=== PATIENT | female | born 1965 | race Caucasian/White ===

== ENCOUNTER 2018-12-26 17:07 | Emergency (ER) | payer MEDICARE, MEDICAID, SELFPAY ==
[2018-12-26] VITALS (16 sets, daily range): BP systolic 124–159; BP diastolic 73–84; PULSE 73–79; RESP 13–31; TEMP 37; O2SAT 84–98
--- NOTE | 2018-12-26 17:25 | DI.CT_ITS ---
SYMPTOM/DIAGNOSIS: BACK PAIN THORACIC AND LUMBAR SPINE RECONSTRUCTIONS: THORACIC: There are mild degenerative changes involving the dorsal spine. The vertebral bodies are intact. The neural canal is widely patent. The posterior elements are intact. There is mild facet joint DJD. LUMBAR: A mild levorotoscoliosis is demonstrated. The vertebral bodies are intact with note made of degenerative endplate changes at L 4-5 where a narrowed vacuum disc is demonstrated. There is a small collection of gas in the neural canal posterior to the L 4-5 level, the findings would be consistent with a probable disc herniation and small collection of nitrogen associated with the degenerative disease. At L 5-S 1, there is disc space narrowing as well. Severe facet joint DJD is noted at these levels. There is no evidence of spondylosis or spondylolisthesis. As visualized, the sacrum and sacroiliac joints are intact. SUMMARY: Degenerative changes involving the lumbar spine as described above. No evidence of a fracture or subluxation.
--- NOTE | 2018-12-26 17:25 | DI.CT_ITS ---
SYMPTOM/DIAGNOSIS: RT UPPER AND LOW BACK PAIN ? DISSECTION CHEST CT AND ABD/PELVIC CTA: CT angiography was performed with multi slice acquisition and multi planar and 3D reconstruction. CHEST: The examination was carried out with an intravenous administration of 85 cc's of Omnipaque 350. Evaluation of the chest reveals a surgical device in the lower cervical spine. There is no evidence of PE. There is no evidence of aortic dissection. An aneurysm of the ascending aorta measures approximately 4.3 cm. in diameter. Note is made of regions of consolidation in the lower lobes which could represent pneumonia or atelectasis. There is no evidence of a pneumothorax or pleural effusion. The heart is not enlarged. Coronary artery calcification is demonstrated. There is no evidence of a pericardial effusion. There is no evidence of lymphadenopathy in the chest. No acute bony abnormality is seen. The soft tissues are unremarkable. SUMMARY: There is no evidence of aortic dissection. There is no evidence of PE. Note is made of an unruptured aneurysm of the ascending aorta measuring up to 4.3 cm. in diameter. Regions of lower lobe atelectasis or pneumonia are apparent. ABDOMEN AND PELVIS: The study was carried out with intravenous contrast enhancement. There is no evidence of an aneurysm. There is no evidence of dissection. There is no evidence of occlusion of the celiac trunk or superior mesenteric artery. The renal arteries are intact. The right iliac artery and left iliac artery artery are intact. The liver is unremarkable. The gallbladder is intact. There are no gallstones or ductal dilatation. The pancreas and spleen are unremarkable. The adrenals are normal. The kidneys are intact. There is no evidence of hydronephrosis. The adrenals are normal. There is no evidence of bowel obstruction. Diverticulosis of the rectosigmoid is apparent with no evidence of diverticulitis. There is nothing to suggest an acute appendix. The bladder is unremarkable. The reproductive organs as visualized are unremarkable. There is no evidence of free air or free fluid in the intraperitoneal space. No acute bony abnormality is seen. There is no evidence of an intra-abdominal or pelvic mass or adenopathy. SUMMARY: No evidence of an abdominal aortic aneurysm or dissection.
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
[2018-12-26] MEDS: fentaNYL 100 MCG/2 ML VIAL IVP (17:41)
[2018-12-26 17:57] LABS: Magnesium 1.8 mg/dL (1.8-2.4)
[2018-12-26] MEDS: Omnipaque 350 MG/ML 100 ML BTL IV (17:57)
[2018-12-26 18:08] LABS: ALT 194 U/L (12-78); AST 98 U/L (15-37); Alkaline Phosphatase 149 U/L (46-116); Anion Gap 11.3 mmol/L (3-11); BUN 10 mg/dL (7-18); Bilirubin, Total 1.1 mg/dL (0.2-1.0); CO2 27.7 mmol/L (21.0-32.0); CREATININE 0.81 mg/dL (0.55-1.02); Chloride 98 mmol/L (98-107); Glucose 87 mg/dL (70-100); Lipase 65 U/L (73-393); Potassium 3.3 mmol/L (3.5-5.1); Sodium 137 mmol/L (136-145)
[2018-12-26 18:09] LABS: Troponin I < 0.02 ng/mL (0.00-0.06)
[2018-12-26 18:15] LABS: Albumin 3.3 g/dL (3.4-5.0)
[2018-12-26 18:17] LABS: Abs Immature Grans 0.03 k/cumm (0.0-0.09); Absolute Basophil Count 0.03 k/cumm (0.0-0.2); Absolute Eosinophil Count 0.15 k/cumm (0.0-0.7); Absolute Lymphocyte Count 2.41 k/cumm (1.2-3.4); Absolute Monocyte Count 1.59 k/cumm (0.11-0.7); Basophils % 0.2; Eosinophils % 1.2; HCT 40.9 % (36.0-46.0); HGB 13.7 g/dL (12.0-15.5); Immature Grans % 0.2; Mean Corp. HGB Concentration 33.5 g/dL (32.0-36.0); Mean Corpuscular Hemoglobin 32.5 pg (27.0-33.0); Mean Corpuscular Volume 97.1 fL (80-95); Mean Platelet Volume 10.2 fL (8.0-11.0); Monocytes % 12.5; Neutrophils % 66.9; Platelet Count 254 x1000/uL (130-400); RBC 4.21 m/cumm (4.00-5.20); RBC Distribution Width 14.3 % (11.7-14.6); White Blood Cell Count 12.68 k/cumm (4.4-10.8)
[2018-12-26] MEDS: diazePAM 10 MG/2 ML SYR 5 MG IVP (18:17)
[2018-12-26 18:24] LABS: PTT Activated 28.3 sec (21.0-31.4); Prothrombin Time 9.5 sec (9.3-11.0)
[2018-12-26 18:27] LABS: Absolute Neutrophil Count 8.48 k/cumm (1.2-6.7)
[2018-12-26 18:33] LABS: Diff Comment Diff Reviewed
[2018-12-26] MEDS: Ketorolac 30 MG/ML VIAL IVP (18:33)
--- NOTE | 2018-12-26 19:13 | DI.VRAD_ITS ---
EXAM: CT Angiography Chest With Contrast EXAM DATE/TIME: 12/26/2018 5:30 PM CLINICAL HISTORY: 53 years old, female; Signs and symptoms; Other: Right upper and lower back pain, ? dissection TECHNIQUE: Imaging protocol: Axial computed tomographic angiography images of the chest with intravenous contrast using CT angiography protocol. Coronal and sagittal reformatted images were created and reviewed. 3D rendering: MIP reconstructed images were created and reviewed. Radiation optimization: All CT scans at this facility use at least one of these dose optimization techniques: automated exposure control; mA and/or kV adjustment per patient size (includes targeted exams where dose is matched to clinical indication); or iterative reconstruction. Contrast material: omnipaque 350 Contrast volume: 85 ml Contrast route: iv COMPARISON: No relevant prior studies available. FINDINGS: Tubes, catheters and devices: Surgical device in the cervical spine Pulmonary arteries: No evidence of pulmonary embolus in the main pulmonary arteries. Aorta: No dissection of the aorta. Unruptured aneurysm of the ascending aorta 4.3 cm. Lungs: Consolidation in the lower lobes may represent atelectasis or pneumonia. Pleural space: Normal. No pneumothorax. No pleural effusion. Heart: Coronary artery calcifications may indicate coronary artery disease Lymph nodes: Unremarkable. No enlarged lymph nodes. Bones/joints: Unremarkable. No acute fracture. Soft tissues: Unremarkable. IMPRESSION: 1. No dissection of the aorta. 2. No evidence of pulmonary embolus in the main pulmonary arteries. 3. Unruptured aneurysm of the ascending aorta 4.3 cm. 4. Consolidation in the lower lobes may represent atelectasis or pneumonia. EXAM: CT Angiography Abdomen and Pelvis With Contrast EXAM DATE/TIME: 12/26/2018 5:30 PM CLINICAL HISTORY: 53 years old, female; Signs and symptoms; Other: Right upper and lower back pain, ? dissection TECHNIQUE: Imaging protocol: Axial computed tomographic angiography images of the abdomen and pelvis with intravenous contrast material, including non-contrast images if performed. Coronal and sagittal reformatted images were created and reviewed. 3D rendering: MIP reconstructed images were created and reviewed. Radiation optimization: All CT scans at this facility use at least one of these dose optimization techniques: automated exposure control; mA and/or kV adjustment per patient size (includes targeted exams where dose is matched to clinical indication); or iterative reconstruction. Contrast material: omnipaque 350 Contrast volume: 85 ml Contrast route: iv COMPARISON: No relevant prior studies available. FINDINGS: VASCULATURE: Aorta: No aneurysm of the aorta. No dissection of the aorta. Celiac trunk and mesenteric arteries: No occlusion or significant stenosis. Renal arteries: No occlusion or significant stenosis. Right iliac arteries: No occlusion or significant stenosis. Left iliac arteries: No occlusion or significant stenosis. ABDOMEN: Liver: No mass. Gallbladder and bile ducts: Unremarkable. No calcified stones. No ductal dilation. Pancreas: Unremarkable. No mass. No ductal dilation. Spleen: Unremarkable. No splenomegaly. Adrenals: Unremarkable. No mass. Kidneys and ureters: Unremarkable. No solid mass. No hydronephrosis. Stomach and bowel: Diverticulosis of the rectosigmoid. No diverticulitis Appendix: No evidence of appendicitis. PELVIS: Bladder: Unremarkable. No mass. Reproductive: Unremarkable as visualized. ABDOMEN and PELVIS: Intraperitoneal space: Unremarkable. No free air. No significant fluid collection. Bones/joints: No acute fracture. No dislocation. Soft tissues: Unremarkable. Lymph nodes: Unremarkable. No enlarged lymph nodes. IMPRESSION: 1. No aneurysm of the aorta. 2. No dissection of the aorta. Dictated and Authenticated by: Ida Gaviria MD. Ordering:NEHAL Rodriguez MD
[2018-12-26] MEDS: levoFLOXacin 500 MG, levoFLOXacin 250 MG 750 MG PO (19:43)
== END 2018-12-26 19:45 | disposition home or self-care (01) ==
PROVIDERS: Emergency Provider Emergency Medicine; PCP Family Medicine
DX: J18.9 Pneumonia, unspecified organism (principal); M54.6 Pain in thoracic spine; M54.5 Low back pain
CPT/HCPCS: 74177; 80053; 80076; 83690; 96374; 96375; 99285; 83735; 84484; 85025; 85610; 85730; 99284; J1885; J3010; J3360; J3490

== ENCOUNTER 2019-06-15 11:23 | Outpatient (CLI) | payer MEDICARE, MEDICAID, SELFPAY ==
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
== END 2019-06-15 11:43 ==
PROVIDERS: PCP Family Medicine; Visit Provider Nurse Practitioner Family
DX: B18.2 Chronic viral hepatitis C (principal); F10.21 Alcohol dependence, in remission; Z72.0 Tobacco use; Z98.61 Coronary angioplasty status; J44.9 Chronic obstructive pulmonary disease, unspecified

== ENCOUNTER 2019-08-08 09:19 | Emergency (ER) | payer MEDICARE, MEDICAID, SELFPAY ==
[2019-08-08] VITALS (29 sets, daily range): BP systolic 117–145; BP diastolic 58–94; PULSE 59–71; RESP 6–21; O2SAT 91–100
--- NOTE | 2019-08-08 10:17 | W.ED.GENAD ---
Discharge Plan Disposition Patient Disposition: AGAINST MEDICAL ADVICE Condition: Good Discharge Details Chief Complaint: Chest/Rib Clinical Impression: Chest pain, Pneumonia Primary Care Provider: Homer Merida ED Provider: Shelley Mondragon Home Meds and New Rx's Prescriptions: New doxycycline hyclate 100 mg capsule 100 mg PO BID Qty: 20 RF: 0 No Action fluoxetine [Prozac] 40 MG capsule 20 mg PO TID RF: 0 metoprolol succinate 100 MG tablet extended release 24 hr 12.5 mg PO DAILY RF: 0 Lyrica 100 MG capsule 150 mg PO BID RF: 0 atorvastatin 40 mg Tablet 40 mg PO DAILY RF: 0 losartan 25 mg Tablet 25 mg PO DAILY RF: 0 montelukast 10 mg Tablet 10 mg PO DAILY RF: 0 loratadine 10 mg Tablet 10 mg PO DAILY RF: 0 diazepam [Valium] 5 mg Tablet 5 mg PO PRNRF: 0 oxycodone 10 mg Tablet 10 mg PO TID RF: 0 levofloxacin 750 mg tablet 750 mg PO DAILY Qty: 6 RF: 0 Discharge Instructions Instructions: Chest Pain (ED), Pneumonia (ED) Additional Instructions: Push fluids by mouth. Rest activities as tolerated. Your lab work is thus far normal. Next line use antibiotic for possible pneumonia. Follow-up promptly with your primary care doctor. Return for any alarming symptoms, worsening or concerns sooner if needed Discharge Data Discharge Date/Time-TO BE ENTERED AT DEPARTURE: 08/08/19 13:56 Medical Decision Making Is a 54-year-old woman who does have a history of opiate use due to chronic pain. Patient presents for right-sided chest pain for the last 2 days. Patient reports right back pain radiating to the lateral chest with some occasional substernal intermittent chest pain. Patient reports pain significant worse with range of motion as well as with deep breathing. Patient reports pain is not relieved at rest but does escalate with movement. Patient denies any diaphoresis, or associated abdominal complaints. Patient noted to be mildly hypoxic on the monitor. Patient reports she is a smoker, does report a cough but no significant change in cough. Denies any fevers or chills recently. Given patient's complaints of right-sided chest pain with mild hypoxia will order CT chest after discussion with the patient regarding conservative chest x-ray and imaging her preferences CT at this time. Of note patient did begin hepatitis medications by mouth prior to onset of her symptoms last week. Is unclear if this is related to her symptoms. Labs pending, troponins pending. EKG reveals sinus rhythm with poor R wave progression which is nonspecific. A heart rate of 72. No obvious ST segment changes. This was reviewed with Dr. Mian Maier. Patient's labs returned without significant abnormalities. At this time patient is requesting that she be discharged home. CAT scan still pending. Patient reports she wants to be discharged and call for her test results. I advised the patient that it is important for her to save her test results. I had a discussion with the patient about my diagnostic/treatment plan. Patient declines plan and wishes to leave against medical advise. I reiterated my concerns to the patient and explained the risks of leaving prior to completion of workup and treatment. I specifically emphasized the possibility of life-threatening or lifestyle modifying disease that would no be appropriately treated if they leave. Patient verbalized understanding of my concerns and the potential for life threatening or lifestyle modifying disease. Patient has capacity to make informed decision. I again explained my concerns and urged the patient to stay for treatment as outlined. Patient continued to refuse. I then discussed potential less ideal alternatives to diagnostic/treatment plan as outlined and patiint refused. I recommended that the patient followup with primary care physician [facility]INT or return to the Emergency Department at any timer for further treatment. HPI General Date/Time Provider Initiated Documentation: 08/08/19 09:35. HPI Narrative: Is a 54-year-old woman who presents to the emergency room for right-sided chest pain patient reports onset of right-sided chest pain 2 days ago. Patient reports pain is fairly constant. Patient reports pain is worse with deep breathing, coughing, moving, walking. Patient denies fever, chills, upper respiratory symptoms recently. She does have a baseline cough. She patient reports patient reports right back pain with radiation around her flank. Patient denies abdominal pain. Patient denies vomiting but does report mild nausea this morning. Pain is escalating compared to the last 2 days. Patient does report left-sided chest pain that occurred last week. Was seen at [facility] and diagnosed with muscle strain, given steroids. Patient reports left-sided chest pain resolved in 4 days. Patient denies any leg swelling. Patient is a smoker. Patient does report mild dyspnea although when characterizing reports that as shallow breathing due to pain. Patient does report mild substernal discomfort which is intermittent as opposed to the constant type pain she is experiencing in the right chest. Denies dizziness, lightheadedness or weakness. Difficulty sleeping last night due to pain. Does take chronic pain medicine for which she has been compliant with which is not relieving of her pain. Denies urinary urgency, frequency or dysuria. No hematuria. Related Data Home Medications Medication Instructions Recorded Confirmed fluoxetine [Prozac] 20 mg PO TID 12/08/15 12/26/18 metoprolol succinate 12.5 mg PO DAILY tab-cap 12/08/15 12/26/18 Lyrica 150 mg PO BID 12/26/15 12/26/18 atorvastatin 40 mg PO DAILY 12/26/18 12/26/18 diazepam [Valium] 5 mg PO PRN 12/26/18 levofloxacin 750 mg PO DAILY #6 tab 12/26/18 loratadine 10 mg PO DAILY 12/26/18 12/26/18 losartan 25 mg PO DAILY 12/26/18 12/26/18 montelukast 10 mg PO DAILY 12/26/18 12/26/18 oxycodone 10 mg PO TID 12/26/18 12/26/18 doxycycline hyclate 100 mg PO BID #20 cap 08/08/19 Previous Rx's Medication Instructions Recorded levofloxacin 750 mg PO DAILY #6 tab 12/26/18 doxycycline hyclate 100 mg PO BID #20 cap 08/08/19 Allergies Allergy/AdvReac Type Severity Reaction Status Date / Time Sulfa (Sulfonamide Allergy Intermediate Unverified 12/26/18 17:19 Antibiotics) codeine Allergy Unknown Unverified 12/26/18 17:19 sumatriptan [From Imitrex] Allergy Unknown Unverified 12/26/18 17:19 General Stated Complaint: Chest/Rib GAYATRI: 3 Review of Systems All systems reviewed & are unremarkable except as noted in HPI and below Constitutional Constitutional: Denies chills, Denies fatigue, Denies fever(s), Denies headache(s) and Denies malaise ENT Ears, Nose, Mouth, and Throat: Denies headache(s) and Denies neck pain Cardiovascular Cardiovascular: Reports chest pain, Denies diaphoresis, Denies syncope, Denies pedal edema, Denies palpitations, Reports dyspnea and Denies dyspnea on exertion Respiratory Respiratory: Reports cough, Reports pain on inspiration, Reports pain with cough, Reports dyspnea, Denies dyspnea on exertion and Denies wheezing Gastrointestinal Gastrointestinal: Denies abdominal pain, Denies diarrhea, Reports nausea and Denies vomiting Genitourinary Genitourinary: Denies urinary frequency, Denies dysuria and Denies urinary urgency Musculoskeletal Musculoskeletal: Reports back pain and Denies neck pain Neurologic Neurologic: Denies syncope and Denies headache(s) Endocrine Endocrine: Denies fatigue and Denies palpitations Allergic/Immunologic Allergic/Immunologic: Denies wheezing [facility] Social History Smoking/Tobacco Use Status: Current every day Tobacco Type: cigarettes Drug use: Occasionally Do you feel safe in your relationship?: Yes Exam Narrative Exam Narrative: CONST: Healthy appearing patient, in no acute distress. Well hydrated. Alert and alert. NECK: Normal visual inspection. FROM. No lymphadenopathy. Trachea midline. No Midline tenderness. CHEST: Normal insepection of the chest. chest wall pain is not reproducible RESP: Normal respiratory effort. Speaking full sentences. No cough. No wheezing. No retractions. Mild rhonchi in the bases of bilateral lower lungs. Breath sound equal and present bilaterally. CARDIO: No JVD. Normal PMI. Regular Rate. Regular Rhythm. Normal peripheral pulses. GI: Normal inspection of abdomen. No distension. Soft. Mild right upper quadrant pain with palpation. Bowel sounds present in all 4 quadrants. No rebound. No gaurding. MUSCULOSKELETAL: Normal Gait. FROM of all extremities. Distal neurovascularly intact. Sensation intact distally. Back: No CVA tenderness bilaterally. SKIN: Normal. Dry. No rashes. NEURO: Alert and awake. Speech clear. PSYCH: Normal affect. Cooperative. Course Vital Signs Vital signs: Vital Signs Blood Pressure 145/94 H 08/08/19 09:23 Respiratory Effort 08/08/19 09:35 Respiratory Depth Shallow 08/08/19 09:35 Respiratory Pattern Normal 08/08/19 09:35 Blood Pressure 145/94 H 08/08/19 09:23 Pain Level 8 08/08/19 09:35
[2019-08-08] MEDS: Normal Saline 1,000 ML 1000 ML IV (10:43)
[2019-08-08] MEDS: HYDROmorphone 2 MG/ML VIAL 1 MG IVP ×2 (10:43→12:05)
[2019-08-08 11:18] LABS: Abs Immature Grans 0.02 k/cumm (0.0-0.09); Absolute Basophil Count 0.04 k/cumm (0.0-0.2); Absolute Eosinophil Count 0.14 k/cumm (0.0-0.7); Absolute Lymphocyte Count 1.82 k/cumm (1.2-3.4); Absolute Monocyte Count 1.02 k/cumm (0.11-0.7); Absolute Neutrophil Count 6.83 k/cumm (1.2-6.7); Basophils % 0.4; Eosinophils % 1.4; HCT 42.9 % (36.0-46.0); HGB 14.2 g/dL (12.0-15.5); Immature Grans % 0.2; Lymphocytes % 18.4; Mean Corp. HGB Concentration 33.1 g/dL (32.0-36.0); Mean Corpuscular Hemoglobin 32.3 pg (27.0-33.0); Mean Corpuscular Volume 97.7 fL (80-95); Mean Platelet Volume 10.8 fL (8.0-11.0); Monocytes % 10.3; Neutrophils % 69.3; Platelet Count 248 x1000/uL (130-400); RBC 4.39 m/cumm (4.00-5.20); RBC Distribution Width 13.2 % (11.7-14.6); White Blood Cell Count 9.87 k/cumm (4.4-10.8)
[2019-08-08 11:19] LABS: Bilirubin Negative (Negative); Blood Negative (Negative); Clarity Clear (Clear); Glucose Negative (Negative); Ketones Negative (Negative); Leukocyte Esterase Negative (Negative); Nitrite Negative (Negative); Urobilinogen 0.2 EU/dL (Up TO 0.2)
[2019-08-08 11:47] LABS: ALT 38 U/L (14-59); AST 24 U/L (15-37); Albumin 3.5 g/dL (3.4-5.0); Alkaline Phosphatase 81 U/L (46-116); Anion Gap 7.8 mmol/L (3-11); BUN 14 mg/dL (7-18); Bilirubin, Total 0.7 mg/dL (0.2-1.0); CO2 26.2 mmol/L (21.0-32.0); CREATININE 0.85 mg/dL (0.55-1.02); Calcium 8.9 mg/dL (8.5-10.1); Chloride 102 mmol/L (98-107); Glucose 106 mg/dL (70-100); Lipase 83 U/L (73-393); NT-proBNP 128 pg/mL; Sodium 136 mmol/L (136-145); Total Protein 7.9 g/dL (6.4-8.2)
[2019-08-08 11:50] LABS: Troponin I < 0.05 ng/mL (0.00-0.06)
--- NOTE | 2019-08-08 13:00 | DI.CT_ITS ---
EXAM: CT CHEST PE CTA CLINICAL HISTORY: pain, right chest, please include liver TECHNIQUE: Imaging Protocol: Axial CT angiography was performed with multi-slice acquisition and mu lti-planar and/or 3D reconstructions. CONTRAST MATERIAL: Intravenous: Omnipaque 350 Contrast volume:69 mL contrast route:IV - Oral:No COMPARISON: CT thorax abd/pel CTA from 12/26/2018 FINDINGS: Pulmonary Arteries: No evidence of filling defect to suggest pulmonary emboli. Tracheobronchial tree: Patent where visualized. Mediastinum and Kayli: No dominant adenopathy or fluid collection. Pulmonary parenchyma: There are small areas of consolidation in the lower lobes bilaterally. These a reas have significantly improved since the CT scan from 12/26/2018. Dependent atelectatic changes ar e also noted. No architectural distortion. Pleura: No effusion or pneumothorax. Heart/Aorta: There is no evidence of a thoracic aortic dissection or aneurysm. There is no cardiomeg hawk. No pericardial effusion or right heart strain is noted. Coronary artery calcifications are pre sent. Upper abdomen: Unremarkable. Bones: Degenerative changes. IMPRESSION: No evidence of pulmonary embolus, thoracic aortic dissection or aneurysm. Small areas of consolidation in the lower lobes bilaterally. These may represent areas of atelectasis or pneumonia. Please correlate clinically. The findings were discussed with the Emergency Department on the date of the examination. DATA REPOSITORY: All CT scans at this facility are submitted to the National Radiology Data Registry (NRDR) Dose Index Registry (DIR) with the [employer] (ACR). RADIATION OPTIMIZATION: All CT scans at this facility use at least one of these dose optimization te chniques: automated exposure control; mA and/or kV adjustment per patient size (includes targeted exa ms where dose is matched to clinical indication); or iterative reconstruction.
[2019-08-08] MEDS: Omnipaque 350 MG/ML 100 ML BTL IJ (13:15)
== END 2019-08-08 13:56 | disposition left against medical advice (07) ==
PROVIDERS: Emergency Provider Physician Assistant; PCP Family Medicine
DX: J20.9 Acute bronchitis, unspecified (principal)
CPT/HCPCS: 36415; 71275; 80053; 83690; 93005; 96361; 96374; 96376; 99284; 81003; 83880; 84484; 85025; 93010; J3490

== ENCOUNTER 2021-06-09 09:48 | Emergency (ER) | payer MEDICARE, MEDICAID, SELFPAY ==
[2021-06-09] VITALS (20 sets, daily range): BP systolic 111–135; BP diastolic 68–86; PULSE 55–71; RESP 10–20; TEMP 36.5–36.6; O2SAT 89–98
--- NOTE | 2021-06-09 10:15 | RT.EKG_ITS ---
APPROVED REPORT Exam: Resting ECG Reason for Exam: Chest pain Patient Location: E HR:61 bpm ECG Measurements Heart Rate 61 AXIS AK 163 P 38 QRSd 96 QRS 3 QT 450 T 30 QTc 452 Conclusion Sinus rhythm...normal P axis, V-rate 60- 99. Sinus. No STEMI. I have reviewed and interpreted ECG and agree with software generated interpretation.
--- NOTE | 2021-06-09 10:29 | W.ED.GENAD ---
Discharge Plan Disposition Patient Disposition: HOME Condition: Stable Discharge Details Clinical Impression: Abdominal pain Primary Care Provider: Homer Merida ED Provider: Virginia Bowen Home Meds and New Rx's Prescriptions: Continued fluoxetine [Prozac] 40 MG capsule 20 mg PO TID RF: 0 metoprolol succinate 100 MG tablet extended release 24 hr 12.5 mg PO DAILY RF: 0 atorvastatin 40 mg Tablet 40 mg PO DAILY RF: 0 losartan 25 mg Tablet 25 mg PO DAILY RF: 0 diazepam [Valium] 5 mg Tablet 5 mg PO PRNRF: 0 oxycodone 10 mg Tablet 10 mg PO TID RF: 0 aspirin 81 mg tablet,chewable 81 mg PO DAILY RF: 0 pregabalin 300 mg capsule 300 mg PO DAILY RF: 0 Discharge Instructions Instructions: Abdominal Pain (ED) Additional Instructions: Follow up with primary care provider in 3-5 days. Return to ED sooner if any worsening or concerns. Increase oral fluids. At this time labs are all within normal limits, CT chest abdomen pelvis showed no acute abnormality. Please discuss with your surgeon at follow-up different options and further testing if needed. Referrals: Homer Merida [Primary Care Provider] - Medical Decision Making 56-year-old female presents to the ER with chief complaint of right upper quadrant abdominal pain which radiates into her back which began yesterday while outside picking potatoes. Patient reports diaphoresis and nausea no vomiting. Patient is status post cholecystectomy on May 25 of this year. Denies any diarrhea fever. Patient has a past medical history of high cholesterol, back pain surgical history includes appendectomy, back surgery, hysterectomy, cholecystectomy. Current every day smoker. Former alcohol use. Patient is complaining of 8 out of 10 pain which waxes and wanes. Right upper quadrant right lower quadrant tenderness with palpation. Patient also endorses bloating associated with this pain. At this time work-up ordered including lipase, will order chest CT abdomen pelvis rule out PE versus common bile duct stone versus other etiology for patient's symptoms. CBC is negative for leukocytosis, alk phos slightly elevated at 127, initial troponin within normal limits, lipase 68, urinalysis is negative for any signs of infection. CT result noted below. CT CT thorax abd/pel CTA from 12/26/[address] CHEST PE CTA from 08/08/2019 FINDINGS: PE chest CT: Tracheobronchial tree: No bronchiectasis or mucous plugging. Mediastinum and Kayli: No dominant adenopathy or fluid collection. Pulmonary parenchyma: No consolidation or dominant measurable mass. Linear scarring versus atelectasis both lung bases. Expiratory changes. Mild respiratory motion. Pleura: No effusion or pneumothorax. Heart: The heart is mildly dilated. Moderate coronary artery calcifications are seen. Aorta: Thoracic aorta non-dilated. Mild atherosclerotic changes. Lymph nodes: Within normal limits. Bones: Unremarkable for age. Soft tissues: Unremarkable. CT abdomen pelvis: Status post cholecystectomy. No abnormal collection in the gallbladder fossa. No free air. Liver, spleen, pancreas, adrenals and kidneys unremarkable. Diverticulosis sigmoid colon. No diverticulitis. Stomach and small bowel nondilated. Atherosclerotic changes in the aorta. Degenerative changes in the lumbar spine as well as degenerative scoliosis. Status post hysterectomy. Bladder unremarkable. No abnormal soft tissue collection. IMPRESSION: No evidence of pulmonary emboli. Mild basilar scarring versus atelectasis with improvement when compared with the previous exam. Status post cholecystectomy. No acute abnormality in the abdomen or pelvis. Discussed results with patient who verbalized understanding. Patient instructed to follow-up with surgeon and PCP. To discuss strict return instructions. Patient remained hemodynamically stable throughout the remainder of her stay. HPI General Mode of arrival: ambulatory. Date/Time Provider Initiated Documentation: 06/09/21 10:21. Limitations to Documentation: no limitations. Information obtained by: patient and RN notes reviewed. HPI Narrative: 56-year-old female presents to the ER with chief complaint of right upper quadrant abdominal pain which radiates into her back which began yesterday while outside picking potatoes. Patient reports diaphoresis and nausea no vomiting. Patient is status post cholecystectomy on May 25 of this year. Denies any diarrhea fever. Patient has a past medical history of high cholesterol, back pain surgical history includes appendectomy, back surgery, hysterectomy, cholecystectomy. Current every day smoker. Former alcohol use. Patient is complaining of 8 out of 10 pain which waxes and wanes. Right upper quadrant right lower quadrant tenderness with palpation. Patient also endorses bloating associated with this pain. Related Data Home Medications Medication Instructions Recorded Confirmed fluoxetine [Prozac] 20 mg PO TID 12/08/15 06/09/21 metoprolol succinate 12.5 mg PO DAILY tab-cap 12/08/15 06/09/21 atorvastatin 40 mg PO DAILY 12/26/18 06/09/21 diazepam [Valium] 5 mg PO PRN 12/26/18 losartan 25 mg PO DAILY 12/26/18 06/09/21 oxycodone 10 mg PO TID 12/26/18 06/09/21 aspirin 81 mg PO DAILY 06/09/21 06/09/21 pregabalin 300 mg PO DAILY 06/09/21 06/09/21 Allergies Allergy/AdvReac Type Severity Reaction Status Date / Time Sulfa (Sulfonamide Allergy Intermediate Unverified 06/09/21 10:22 Antibiotics) codeine Allergy Unknown Unverified 06/09/21 10:22 sumatriptan [From Imitrex] Allergy Unknown Unverified 06/09/21 10:22 General Stated Complaint: Abd Prob GAYATRI: 3 Review of Systems Narrative: Constitutional: Negative for weight loss, alert and oriented, well groomed, normal body habitus, appears uncomfortable. HEENT: Denies trauma, headaches, blurry vision, nasal discharge, sore throat, trouble swallowing. Chest: Denies palpitations, irregular rhythm, hypertension. Respiratory: Denies Shortness of breath, cough, hemoptysis. GI: Denies vomiting, diarrhea, constipation. Positive abdominal pain right upper quadrant radiates in the back status post cholecystectomy, nausea. : Denies dysuria, hematuria, rectal bleeding. Right flank pain. Neuro: Denies dizziness, blurry vision, weakness, syncope, headache or facial numbness. Hematologic: Denies easy bruising, intolerance to heat or cold, hair loss. [facility] Surgical History Appendectomy back surgery Colonoscopy - MAC (07/27/17) neck surgery Vaginal hysterectomy Family History Father Colon polyps Social History Smoking/Tobacco Use Status: Current every day Tobacco Type: cigarettes Smoking risk assessment performed?: Yes Alcohol Intake: former Drug use: Occasionally Substance use type: does not use Do you feel safe in your relationship?: Yes Exam Narrative Exam Narrative: Constitutional: Alert and oriented x3. Appears stated age. Normal body habitus. Head: Normocephalic, no trauma. Eyes: Pupils PERRLA, Red reflex noted, EOM's intact. Eyelids symmetrical without lesions, discharge, or swelling. ENT: Bilateral TM's WNL, External ear normal to inspection, no mastoid TTP, swelling, or erythema, Nasal turbinates WNL, no nasal discharge. Normal dentition, Posterior pharynx WNL, no exudate. Chest: RRR, Normal S1, S2, distal pulses intact. Resp: Lungs clear to auscultation bilaterally, no wheezes, rales, or rhonchi. Abdomen: Soft, nondistended tender with palpation right upper quadrant right lower quadrant laparoscopic surgical incisions noted with no surrounding erythema, induration or signs of infection. Musculoskeletal: Unable to assess gait. 5/5 strength to all four extremities. Skin: No suspicious rashes or lesions. Capillary refill less than 2 sec. Neurologic: Cranial nerves II-XII intact. Alert and oriented x 3. DTR's intact. Hematologic/Lymphatic: No ecchymosis, no lymphadenopathy. Course Vital Signs Vital signs: Vital Signs Temperature 36.6 C 06/09/21 09:58 Pulse 67 06/09/21 09:58 Respiratory Rate 20 06/09/21 09:58 Blood Pressure 135/86 06/09/21 09:58 Pulse Oximetry 98 06/09/21 09:58 Temperature 36.6 C 06/09/21 09:58 Temperature Source Skin 06/09/21 09:58 Pulse 67 06/09/21 09:58 Respiratory Rate 20 06/09/21 09:58 Respiratory Effort 06/09/21 10:04 Blood Pressure 135/86 06/09/21 09:58 Blood Pressure Position Sitting 06/09/21 09:58 Pulse Oximetry 98 06/09/21 09:58 Oxygen Delivery Method Room Air 06/09/21 09:58 Oxygen Flow Rate 0 06/09/21 09:58 Pain Level 8 06/09/21 10:22
--- NOTE | 2021-06-09 10:30 | DI.CT_ITS ---
Exam(s) CT CHEST PE ABD PELVIS W EXAM: CT CHEST PE ABD PELVIS W CLINICAL HISTORY: S/P cholecystectomy RUQ abd Pain/Chest pain TECHNIQUE: Imaging Protocol: Axial computed tomography images with coronal and sagittal reformatted images were created and reviewed CONTRAST MATERIAL: Intravenous: Omnipaque 350 Contrast volume:100 cc COMPARISON: CT CT thorax abd/pel CTA from 12/26/[address] thorax abd/pel CTA from 12/26/[address] CHEST PE CTA from 08/08/2019 FINDINGS: PE chest CT: Tracheobronchial tree: No bronchiectasis or mucous plugging. Mediastinum and Kayli: No dominant adenopathy or fluid collection. Pulmonary parenchyma: No consolidation or dominant measurable mass. Linear scarring versus atelectasi s both lung bases. Expiratory changes. Mild respiratory motion. Pleura: No effusion or pneumothorax. Heart: The heart is mildly dilated. Moderate coronary artery calcifications are seen. Aorta: Thoracic aorta non-dilated. Mild atherosclerotic changes. Lymph nodes: Within normal limits. Bones: Unremarkable for age. Soft tissues: Unremarkable. CT abdomen pelvis: Status post cholecystectomy. No abnormal collection in the gallbladder fossa. No free air. Liver, spl een, pancreas, adrenals and kidneys unremarkable. Diverticulosis sigmoid colon. No diverticulitis. St omach and small bowel nondilated. Atherosclerotic changes in the aorta. Degenerative changes in the l umbar spine as well as degenerative scoliosis. Status post hysterectomy. Bladder unremarkable. No abn ormal soft tissue collection. IMPRESSION: No evidence of pulmonary emboli. Mild basilar scarring versus atelectasis with improvement when comp ared with the previous exam. Status post cholecystectomy. No acute abnormality in the abdomen or pelvis. RADIATION DOSE DELIVERED: 1,662.1mGy.cm Total DLP DATA REPOSITORY: All CT scans at this facility are submitted to the National Radiology Data Registry (NRDR) Dose Index Registry (DIR) with the [employer] ([employer]). RADIATION OPTIMIZATION: All CT scans at this facility use at least one of these dose optimization te chniques: automated exposure control; mA and/or kV adjustment per patient size (includes targeted exa ms where dose is matched to clinical indication); or iterative reconstruction.
[2021-06-09 10:35] LABS: Bilirubin Negative (Negative); Blood Negative (Negative); Clarity Clear (Clear); Glucose Negative (Negative); Ketones Negative (Negative); Leukocyte Esterase Negative (Negative); Nitrite Negative (Negative); Urobilinogen 0.2 EU/dL (Up TO 0.2); pH 5.5 (5-8)
[2021-06-09 10:36] LABS: Abs Immature Grans 0.03 10^3/uL (0.0-0.06); Absolute Basophil Count 0.06 10^3/uL (0.0-0.2); Absolute Eosinophil Count 0.28 10^3/uL (0.0-0.7); Absolute Lymphocyte Count 2.72 10^3/uL (1.2-3.4); Absolute Monocyte Count 0.95 10^3/uL (0.1-0.8); Absolute Neutrophil Count 6.52 10^3/uL (1.2-6.7); Basophils % 0.6; Eosinophils % 2.7; HCT 44.6 % (36.0-46.0); HGB 14.5 g/dL (11.2-15.7); Immature Grans % 0.3; Lymphocytes % 25.8; MCH 31.8 pg (27.0-33.0); MCHC 32.5 % (32.0-36.0); MCV 97.8 fL (80-95); MPV 10.1 fL (8.0-11.0); Neutrophils % 61.6; Nucleated RBC 0 %; Platelet Count 261 10^3/uL (130-400); RBC 4.56 10^6/uL (3.93-5.22); RDW 12.3 % (11.7-14.6); RDW-SD 44.8 fL; WBC 10.56 10^3/uL (4.4-10.8)
[2021-06-09 10:49] LABS: ALT 53 U/L (14-59); AST 32 U/L (15-37); Albumin 3.9 g/dL (3.4-5.0); Alkaline Phosphatase 127 U/L (46-116); BUN 13 mg/dL (7-18); Bilirubin, Total 0.6 mg/dL (0.2-1.0); CREATININE 1.1 mg/dL (0.55-1.02); Calcium 9.2 mg/dL (8.5-10.1); Chloride 102 mmol/L (98-107); Estimated GFR 51.02 (mL/min/1.73m2); Glucose 102 mg/dL (74-106); Lipase 68 U/L (73-393); Potassium 4.3 mmol/L (3.5-5.1); Sodium 138 mmol/L (136-145); Total Protein 8.1 g/dL (6.4-8.2)
[2021-06-09] MEDS: Normal Saline 1,000 ML 250 ML IV (10:53)
[2021-06-09] MEDS: Ondansetron 4 MG/2 ML VIAL IVP (10:53)
[2021-06-09 10:54] LABS: Troponin I < 0.05 ng/mL (<0.06)
[2021-06-09] MEDS: fentaNYL 100 MCG/2 ML VIAL 50 MCG IVP ×2 (10:54→11:40)
[2021-06-09] MEDS: Omnipaque 350 MG/ML 100 ML BTL IJ (11:20)
== END 2021-06-09 12:55 | disposition home or self-care (01) ==
PROVIDERS: Emergency Provider Registered Nurse Emergency; PCP Family Medicine
DX: R10.11 Right upper quadrant pain (principal); M54.9 Dorsalgia, unspecified; R07.9 Chest pain, unspecified
CPT/HCPCS: 71275; 74177; 80053; 83690; 93005; 96374; 96375; 96376; 99284; 81003; 83735; 84484; 85025; 93010; J2405; J3010; J3490

== ENCOUNTER → 2022-09-30 13:39 | Outpatient (BNVA) | payer MEDICARE, MEDICAID, SELFPAY | PROVIDERS: PCP Family Medicine; Referring Provider Family Medicine; Visit Provider Psychiatry & Neurology Neurology | DX: I10 Essential (primary) hypertension (principal); R56.9 Unspecified convulsions; I67.83 Posterior reversible encephalopathy syndrome | CPT/HCPCS: 99215 ==

== ENCOUNTER 2022-10-19 03:33 | Outpatient (CLI) | payer MEDICARE, MEDICAID, SELFPAY ==
--- NOTE | 2022-10-25 10:46 | PDOC.EEG_ITS ---
Neurology EEG EEG: [facility] Department of Neurology LONG-TERM AMBULATORY EEG REPORT Date of Recordin10/19/22 at 11:31:33 to 10/20/22 at 08:24:52 Interpreting Physician: Dr. Isabel Huber PCP/Referring Provider: Dr. Merida Reason for study: Ms. Williamson is a 57 year-old with recent GTCs secondary to PRES with ongoing headaches, fatigue, and brain fog. Current Medications: Home Medications Medication Instructions Recorded Confirmed Type fluoxetine 40 mg capsule (Prozac) 20 mg PO TID 12/08/15 09/30/22 History aspirin 81 mg chewable tablet 81 mg PO DAILY 06/09/21 09/30/22 History pregabalin 300 mg capsule 300 mg PO DAILY 06/09/21 09/30/22 History albuterol 90 mcg/actuation aerosol 90 mcg inhalation Q3H PRN PRN 09/28/22 09/30/22 History inhaler budesonide-formoterol HFA 80 2 puff inhalation BID 09/28/22 09/30/22 History mcg-4.5 mcg/actuation aerosol inhaler (Symbicort) levetiracetam 250 mg tablet 500 mg PO BID 09/28/22 09/30/22 History (Keppra) losartan 25 mg tablet 50 mg PO DAILY 09/28/22 09/30/22 History metoprolol succinate 25 mg 25 mg PO DAILY 09/28/22 09/30/22 History tablet,extended release 24 hr naproxen 500 mg tablet 500 mg PO BID PRN 09/28/22 09/30/22 History omeprazole 20 mg capsule,delayed 20 mg PO DAILY 09/28/22 09/30/22 History release oxycodone 15 mg tablet 15 mg PO Q6H PRN 09/28/22 09/30/22 History rosuvastatin 10 mg tablet 10 mg PO DAILY 09/28/22 09/30/22 History sennosides 8.6 mg tablet (senna) 17.2 mg PO DAILY PRN 09/28/22 09/30/22 History trazodone 300 mg tablet 300 mg PO QHS 09/28/22 09/30/22 History umeclidinium 62.5 mcg/actuation 1 inh inhalation Q24H 09/28/22 09/30/22 History blister powder for inhalation (Incruse Ellipta) topiramate 50 mg tablet See Rx Instructions PO .COMPLEX 09/30/22 09/30/22 Rx #120 tabs METHODS: An 18-channel digitized electroencephalogram was recorded in the ambulatory setting with video. The 10/20 international system of electrode placement was used and bipolar and referential electrode montages were recorded. In addition to EEG the patient was monitored for EKG and by video. Activation procedures of photic stimulation and hyperventilation were performed if applicable. The duration of the recording was ~21 hours. DESCRIPTION OF EEG: Waking background activity: During maximal wakefulness a 10-Hz posterior background rhythm was present which was well-modulated, symmetrical, reactive to eye opening, and of moderate voltage. Faster frequencies were present in the bilateral anterior head regions. There was a normal anterior-posterior voltage gradient. Drowsy and sleeping background activity: During drowsiness, there was attenuation of the posterior dominant background rhythm and vertex waves. Normal stage II and III sleep was present with symmetrical sleep spindles, K- complexes, and vertex waves with slowing of the background rhythm to delta/theta frequencies. REM sleep manifested by rapid lateral eye movements and faster background rhythms was recorded. Arousal was unremarkable. Sleep was disrupted by frequent nocturnal arousals. Interictal abnormalities: There were times of generalized, polymorphic theta activity during wakefulness which may represent periods of drowsiness as they were often followed by sleep. Ictal findings: No events recorded. Activating Procedures: Photic stimulation was performed which produced a symmetrical posterior driving response at various flash frequencies. Hyperventilation was performed with moderate effort and produced no physiological slowing of the background. EKG: EKG revealed normal sinus rhythm. INTERPRETATION: This long-term EEG is normal during the awake and sleep states as well as during the activation procedures. Sleep was disrupted by frequent nocturnal arousals. PRIOR EEG: none CLINICAL CORRELATION: No focal regions of cerebral dysfunction or epileptiform activity was present. The sleep disturbances could be indicative of an underlying sleep disorder. Epilepsy remains a clinical diagnosis and a normal EEG does not rule out epilepsy. Clinical correlation is advised. Isabel Huber MD
== END 2022-10-19 03:34 | disposition home or self-care (01) ==
LOC: RT 03:33
PROVIDERS: PCP Family Medicine; Visit Provider Psychiatry & Neurology Neurology
DX: I67.83 Posterior reversible encephalopathy syndrome (principal)
CPT/HCPCS: 95714; 95720

== ENCOUNTER → 2022-12-01 07:21 | Outpatient (BNVA) | payer MEDICARE, MEDICAID, SELFPAY | PROVIDERS: PCP Family Medicine; Referring Provider Family Medicine; Visit Provider Psychiatry & Neurology Neurology | DX: I67.83 Posterior reversible encephalopathy syndrome (principal); R56.9 Unspecified convulsions; Z86.73 Personal history of transient ischemic attack (TIA), and cerebral infarction without residual deficits; I10 Essential (primary) hypertension | CPT/HCPCS: 99214 ==

== ENCOUNTER → 2022-12-29 10:47 | Outpatient (BNVA) | payer MEDICARE, MEDICAID, SELFPAY | PROVIDERS: PCP Family Medicine; Referring Provider Family Medicine; Visit Provider Psychiatry & Neurology Neurology | DX: I69.398 Other sequelae of cerebral infarction (principal); G40.309 Generalized idiopathic epilepsy and epileptic syndromes, not intractable, without status epilepticus; I10 Essential (primary) hypertension; I67.83 Posterior reversible encephalopathy syndrome | CPT/HCPCS: 99213 ==

== ENCOUNTER → 2023-03-17 07:17 | Outpatient (BNVA) | payer MEDICARE, MEDICAID, SELFPAY | PROVIDERS: PCP Family Medicine; Referring Provider Family Medicine; Visit Provider Psychiatry & Neurology Neurology | DX: I69.398 Other sequelae of cerebral infarction (principal); G40.89 Other seizures; I67.83 Posterior reversible encephalopathy syndrome; I10 Essential (primary) hypertension | CPT/HCPCS: 99213 ==

== ENCOUNTER → 2023-05-04 10:44 | Outpatient (BNVA) | payer MEDICARE, MEDICAID, SELFPAY | PROVIDERS: PCP Internal Medicine; Referring Provider Internal Medicine; Visit Provider Surgery | DX: R11.2 Nausea with vomiting, unspecified (principal); R56.9 Unspecified convulsions; I67.83 Posterior reversible encephalopathy syndrome; Z90.49 Acquired absence of other specified parts of digestive tract | CPT/HCPCS: 99213 ==

== ENCOUNTER → 2023-06-06 12:36 | Outpatient (BNVA) | payer MEDICARE, MEDICAID, SELFPAY | PROVIDERS: PCP Internal Medicine; Referring Provider Internal Medicine; Visit Provider Surgery | DX: R11.0 Nausea (principal); R10.9 Unspecified abdominal pain; Z90.49 Acquired absence of other specified parts of digestive tract; Z12.11 Encounter for screening for malignant neoplasm of colon | CPT/HCPCS: 99213; 99215 ==

== ENCOUNTER 2023-07-08 05:31 | Outpatient (CLI) | payer MEDICARE, MEDICAID, SELFPAY ==
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
--- OUTSIDE RECORDS SUMMARY | 2023-07-08 05:32 | XMS_ITS | Continuity of Care Document ---
Author Name Unknown Organization [facility] Address [address] [place] [address] Care Team Providers Care Diagram Clerk Name Role Phone Asya Hand Primary Care Physician Encounter [facility] Date(s): 02/09/23 - 02/09/[address] [address] Discharge Disposition: Home or Self Care Attending Physician: Asya Hand MD Admitting Physician: Asya Hand MD Referring Physician: Asya Hand MD Allergies, Adverse Reactions, Alerts Substance Reaction Severity Status ampicillin 1 Facial swelling Skin rash Moderate Active codeine Itching Moderate Active amoxicillin 2 Unknown Unknown Active azithromycin 3 Itching Moderate Active penicillins 4 Unknown Active sulfa drugs Facial swelling Skin rash Moderate Active iodinated radiocontrast dyes 5 Unknown Active ALPRAZolam 6 Unknown Active SUMAtriptan 7 Unknown Active 1Pt states as a child 2Outside Source Comment: Unknown pt unsure 3patient states on 03/04/2022 that she is not allergice, just finished taking it and wants it off her allergy list 4as a child 5had side effect to IV contrast used for heard testing 5 years ago ( [facility]),, pt tells they dont use that contrast any more and had other CT po and IV contrast since with no reaction 6Pt states she's not allergic to this medication 12/11/18 7Pt. instructed by not to take due to ICH Assessment [...] TB 8Result Comment: verified with [facility] Medications Albuterol (Eqv-ProAir HFA) 90 mcg/inh inhalation aerosol 2 puffs, Inhale, every 3 hr, PRN as needed, (USE WITH SPACER) Start Date: 02/11/22 Status: Ordered Aspirin Low Dose 81 mg oral tablet, chewable See Instructions, CHEW ONE TABLET BY MOUTH EVERY DAY, # 90 tab, 3 Refill(s), [id number] 170.18, cm, 09/16/22 6:46:00 EST, Height/Length Dosing, 94.3, kg, 09/16/22 6:46:00 EST, Weight Dosing Start Date: 10/12/22 Status: Ordered diphenoxylate-atropine 2.5 mg-0.025 mg oral tablet 30 EA, TAKE ONE TABLET BY MOUTH EVERY 6 HOURS NEEDED, 0 Refill(s) Start Date: 11/09/22 Status: Ordered FLUoxetine 20 mg oral capsule 3 cap, Oral, Daily, # 270 cap, 3 Refill(s), Pharmacy: [facility], 170, cm, 03/06/22 13:18:00 EDT, Height/Length Dosing, 86, kg, 03/06/22 13:18:00 EDT, Weight Dosing Start Date: 07/06/22 Status: Ordered hydrocortisone 2.5% topical cream See Instructions, PRN rash, apply in a thin film to the affected skin and rub in gently and completely, use no more than 3 times daily, # 454 g, 1 Refill(s), Pharmacy: [facility] #58, 170.18, cm, 09/16/22 6:46:00 EST, Height/Length Dosing, 94.3,... Start Date: 09/24/22 Status: Ordered Incruse Ellipta 62.5 mcg/inh inhalation powder 1 EA, Inhale, every 24 hr, doses should be taken at least 24 hours apart, # 30 EA, 11 Refill(s), Pharmacy: [facility] Start Date: 02/11/22 Stop Date: 02/06/23 Status: Ordered Keppra 250 mg oral tablet 500 mg = 2 tab, Oral, BID, # 120 tab, 5 Refill(s), Pharmacy: [facility] #58, 170.18, cm, 09/16/22 6:46:00 EST, Height/Length Dosing, 94.3, kg, 09/16/22 6:46:00 EST, Weight Dosing Start Date: 09/19/22 Stop Date: 03/18/23 Status: Ordered losartan 50 mg oral tablet 50 mg = 1 tab, Oral, Daily, # 90 tab, 3 Refill(s), Pharmacy: [facility] #58, 170.18, cm, 09/16/22 6:46:00 EST, Height/Length Dosing, 94.3, kg, 09/16/22 6:46:00 EST, Weight Dosing Start Date: 09/19/22 Stop Date: 09/14/23 Status: Ordered Lyrica 300 mg oral capsule 300 mg = 1 cap, Oral, Daily, # 28 cap, 1 Refill(s), Pharmacy: [facility] #58, 170, cm, 03/06/22 13:18:00 EDT, Height/Length Dosing, 86, kg, 03/06/22 13:18:00 EDT, Weight Dosing Start Date: 08/17/22 Stop Date: 10/12/22 Status: Ordered metoprolol succinate 25 mg oral tablet, extended release 25 mg = 1 tab, Oral, Daily, # 90 tab, 3 Refill(s), Pharmacy: [facility] #58, 170.18, cm, 09/16/22 6:46:00 EST, Height/Length [...] Daily, # 14 patches, 1 Refill(s), Pharmacy: [facility] #58, 170.18, cm, 09/16/22 6:46:00 EST, Height/Length Dosing, 94.3, kg, 09/16/22 6:46:00 EST, Weight Dosing Start Date: 09/19/22 Stop Date: 10/17/22 Status: Ordered omeprazole 20 mg oral delayed release capsule 1 cap, Oral, Daily, # 90 cap, 3 Refill(s), Pharmacy: [facility] #58, 170, cm, 03/06/22 13:18:00 EDT, Height/Length Dosing, 86, kg, 03/06/22 13:18:00 EDT, Weight Dosing Start Date: 04/27/22 Status: Ordered ondansetron 8 mg oral tablet 20 EA, TAKE ONE TABLET BY MOUTH EVERY 6 TO 8 HOURS NEEDED, 0 Refill(s) Start Date: 11/09/22 Status: Ordered pregabalin 300 mg oral capsule 28 EA, TAKE ONE CAPSULE BY MOUTH EVERY DAY, 0 Refill(s) Start Date: 11/09/22 Status: Ordered rosuvastatin 10 mg oral tablet 1 tab, Oral, Daily, # 90 tab, 3 Refill(s), Pharmacy: [facility] #58, 170, cm, 03/06/22 13:18:00 EDT, Height/Length Dosing, 86, kg, 03/06/22 13:18:00 EDT, Weight Dosing Start Date: 07/22/22 Status: Ordered Send to NALINI Send to NALINI, Send to [facility], Supply, See instructions, # 1 EA, 0 Refill(s) Start Date: 05/21/22 Status: Ordered Senna 8.6 mg oral tablet See Instructions, TAKE TWO TABLETS BY MOUTH EVERY DAY NEEDED FOR 14 DAYS, # 28 tab, 3 Refill(s),Pharmacy: [facility], 170, cm, 03/06/22 13:18:00 EDT, Height/Length Dosing, 86, kg, 03/06/22 13:18:00 EDT, Weight Dosing Start Date: 06/15/22 Status: Ordered Symbicort 80 mcg-4.5 mcg/inh inhalation aerosol 2 puffs, Inhale, BID Start Date: 03/26/22 Status: Ordered topiramate 100 mg oral tablet 180 tab, 0 Refill(s) Start Date: 11/09/22 Status: Ordered topiramate 50 mg oral tablet 120 EA, TAKE 1 TABLET BY MOUTH AT BEDTIME FOR 1 WEEK, THEN 1 TABLET TWICE DAILY FOR 1 WEEK, THEN 1 TABLET IN THE MORNING AND 2 TABLETS AT BEDTIME FO, 0 Refill(s) Start Date: 11/09/22 Status: Ordered traZODone 300 mg oral tablet See Instructions, TAKE ONE TABLET BY MOUTH AT BEDTIME, # 90 tab, 0 Refill(s), Pharmacy: [facility] #58, 170, cm, 03/06/22 13:18:00 EDT, Height/Length [...] rhinitis Confirmed 07/31/18 Active Amnesia Confirmed Active Anxiety Confirmed 06/11/16 Active Arthritis Confirmed 04/14/20 Active Cataract Confirmed 02/08/20 Active Cerebral hemorrhage Confirmed Active Cerebrovascular accident Confirmed 06/11/16 Active Cervical spondylosis Confirmed 04/28/11 Active Chest pain Confirmed 02/05/16 Active Chronic hepatitis C Confirmed 04/24/18 Active Chronic kidney disease stage 2 Confirmed 02/05/16 Active Chronic pain Confirmed Active Constipation Confirmed 06/17/21 Active Coronary arteriosclerosis 1 Confirmed 02/04/16 Active Cyst of face Confirmed 02/08/18 Active Daily headache Confirmed 06/11/16 Active Degeneration of cervical intervertebral disc Confirmed 12/28/18 Active Degeneration of lumbar intervertebral disc Confirmed 04/24/18 Active Depressive disorder Confirmed 02/05/16 Active Encephalitis Confirmed Active Essential hypertension Confirmed 07/31/18 Active Fatigue Confirmed 04/19/18 Active Finding of urine substance level Confirmed 07/29/17 Active Focal dystonia Confirmed 04/14/20 Active Gastroesophageal reflux disease Confirmed 07/31/18 Active Heart disease Confirmed 04/19/18 Active History of clinical finding in subject Confirmed 02/05/16 Active Hyperlipidemia Confirmed 07/31/18 Active Hypertension Confirmed Active Hypertensive disorder Confirmed 02/05/16 Active Hypoxemia Confirmed Active Hypoxia Confirmed Active Low back pain Confirmed 07/19/18 Active Lower urinary tract symptoms Confirmed 07/31/18 Active Memory impairment Confirmed 04/14/20 Active Cerebrovascular accident Confirmed 09/26/12 Active Migraine Confirmed 02/25/12 Active Mixed anxiety and depressive disorder Confirmed 04/24/18 Active Muscle pain Confirmed 04/24/18 Active Myocardial infarction Confirmed 07/29/17 Active Nicotine dependence Confirmed 10/23/18 Active Sleep [...] PRES (posterior reversible encephalopathy syndrome) Confirmed Active Posterior reversible encephalopathy syndrome Confirmed 02/17/11 Active Postmenopausal osteoporosis Confirmed 07/31/18 Active Preinfarction syndrome Confirmed 08/15/17 Active Elevated troponin level Confirmed Active Refractory migraine with aura Confirmed Active Scoliosis deformity of spine Confirmed 07/19/18 Active Seizure Confirmed Active Smoker 2 Confirmed 02/05/16 Active Tobacco dependence syndrome Confirmed 06/11/16 Active Tobacco use and exposure - finding Confirmed 07/29/17 Active Tobacco abuse disorder Confirmed Active Tremor Confirmed 04/14/20 Active Vitamin D deficiency Confirmed 07/31/18 Active 1Outside Source Comment: Overview[place]05/[place] [facility] [place] LAD mid 50%, OM1 long 40%, RCA mid 50%. 2Outside Source Comment: Overview: 35+yrs Procedures Procedure Date Related Diagnosis Body Site [...] Total hysterectomy Comple jarvis 1Normal 2Mild Gastritis Social History Social History Type Response Tobacco Current everyday tob acco user Tobacco Use:. 1/2 pack since 01/2022 prior was 1 PPD per day. 40 year(s). Total pack years: 40. Sex Female Patient Care team information Care Team Personnel Name: Asya Hand MD Position: PowerChart View Only Member Role: Informed Provider Address: Address: [address] [address]- [place] Care Team Related Persons Name: PHANI LIPSCOMB Address: Home Name: DENITA RAO Address: Home
--- OUTSIDE RECORDS SUMMARY | 2023-07-08 05:32 | XMS_ITS | Continuity of Care Document ---
Author Name Unknown Organization [facility] Address [address] [place] [address] Care Team Providers Care Systems Security Analyst Name Role Phone Asya Hand Primary Care Physician Encounter [facility] Date(s): 06/20/23 - 06/20/[address] [address] Discharge Disposition: Home or Self Care Attending Physician: Lety Lizama DO Admitting Physician: Lety Lizama DO Referring Physician: Lety Lizama DO Allergies, Adverse Reactions, Alerts Substance Reaction Severity [...] to ICH Assessment and Plan Future Appointments Immunizations Given and Recorded Vaccine Date Status [...] DAY, # 90 tab, 3 Refill(s), Pharmacy: [facility] #58, 170.18, cm, 09/16/22 6:46:00 EST, Height/Length Dosing, 94.3, kg, 09/16/22 6:46:00 EST, Weight Dosing Start Date: 10/12/22 Status: Ordered diphenoxylate-atropine 2.5 mg-0.025 mg oral tablet 30 EA, TAKE ONE TABLET BY MOUTH EVERY 6 HOURS NEEDED, 0 Refill(s) Start Date: 11/09/22 Status: Ordered FLUoxetine 20 mg oral capsule 3 cap, Oral, Daily, # 270 cap, 3 Refill(s), Pharmacy: [facility] #58, 170, cm, 03/06/22 13:18:00 EDT, Height/Length Dosing, 86, kg, 03/06/22 13:18:00 EDT, Weight Dosing Start Date: 07/06/22 Status: Ordered hydrocortisone 2.5% topical cream See Instructions, PRN rash, apply in a thin film to the affected skin and rub in gently and completely, use no more than 3 times daily, # 454 g, 1 Refill(s), Pharmacy: [facility] #58, 170.18, cm, 09/16/22 6:46:00 EST, Height/Length Dosing, 94.3, kg, 09/16/22 6:46:00 EST, Weight Dosing Start Date: 09/24/22 Status: Ordered Incruse Ellipta 62.5 mcg/inh inhalation powder 1 EA, Inhale, every 24 hr, doses should be taken at least 24 hours apart, # 30 EA, 11 Refill(s), Pharmacy: [facility] #58 Start Date: 02/11/22 Stop Date: 02/06/23 Status: Ordered Keppra 250 mg oral tablet 500 mg = 2 tab, Oral, BID, # 120 tab, 5 Refill(s), Pharmacy: [facility] #58, 170.18, cm, 09/16/22 6:46:00 EST, Height/Length Dosing, 94.3, kg, 09/16/22 6:46:00 EST, Weight Dosing Start Date: 09/19/22 Stop Date: 03/18/23 Status: Ordered losartan 50 mg oral tablet 50 mg = 1 tab, Oral, Daily, # 90 tab, 3 Refill(s), Pharmacy: [facility] #58, 170.18, cm, 09/16/22 6:46:00 EST, Height/Length Dosing, 94.3, kg, 09/16/22 6:46:00 EST, Weight Dosing Start Date: 09/19/22 Stop Date: 09/14/23 Status: Ordered Lyrica 300 mg oral capsule 300 mg = 1 cap, Oral, Daily, # 28 cap, 1 Refill(s), Pharmacy: [facility] #58, 170, cm, 03/06/22 13:18:00 EDT, Height/Length Dosing, 86, kg, 03/06/22 13:18:00 EDT, Weight Dosing Start Date: 08/17/22 Stop Date: 10/12/22 Status: Ordered metoprolol succinate 25 mg oral tablet, extended release 25 mg = 1 tab, Oral, Daily, # 90 tab, 3 Refill(s), Pharmacy: [facility] #58, 170.18, cm, 09/16/22 6:46:00 EST, Height/Length [...] Daily, # 14 patches, 1 Refill(s), Pharmacy: [facility] #58, 170.18, cm, 09/16/22 6:46:00 EST, Height/Length Dosing, 94.3, kg, 09/16/22 6:46:00 EST, Weight Dosing Start Date: 09/19/22 Stop Date: 10/17/22 Status: Ordered omeprazole 20 mg oral delayed release capsule 1 cap, Oral, Daily, # 90 cap, 3 Refill(s), Pharmacy: [facility] #58, 170, cm, 03/06/22 13:18:00 EDT, Height/Length [...] Daily, # 90 tab, 3 Refill(s), Pharmacy: [facility] #58, 170, cm, 03/06/22 13:18:00 EDT, Height/Length Dosing, 86, kg, 03/06/22 13:18:00 EDT, Weight Dosing Start Date: 07/22/22 Status: Ordered Send to [facility] Send to [facility], Send to [facility], Supply, See instructions, # 1 EA, 0 Refill(s) Start Date: 05/21/22 Status: Ordered Senna 8.6 mg oral tablet See Instructions, TAKE TWO TABLETS BY MOUTH EVERY DAY NEEDED FOR 14 DAYS, # 28 tab, 3 Refill(s),Pharmacy: [facility] #58, 170, cm, 03/06/22 13:18:00 EDT, Height/Length [...] BEDTIME, # 90 tab, 0 Refill(s), Pharmacy: [facility] #58, 170, cm, 03/06/22 13:18:00 EDT, Height/Length [...] Confirmed 02/05/16 Active Chronic pain Confirmed Active Clostridioides difficile 1 Confirmed 05/04/23 Active Constipation Confirmed 06/17/21 Active Coronary arteriosclerosis 2 Confirmed 02/04/16 Active Cyst of face Confirmed [...] Confirmed 07/19/18 Active Seizure Confirmed Active Smoker 3 Confirmed 02/05/16 Active Tobacco dependence syndrome Confirmed 06/11/16 Active Tobacco use and exposure - finding Confirmed 07/29/17 Active Tobacco abuse disorder Confirmed Active Tremor Confirmed 04/14/20 Active Vitamin D deficiency Confirmed 07/31/18 Active 1Problem added by Rule ([id number]) following Clostridium Difficile from Stool collected on 04-MAY-2023 07:09:00 EDT tested positive for CDI. 2Outside Source Comment: Overview: 02/05/2016 Coronary angiogram at [facility] [place]: LAD mid 50%, OM1 long 40%, RCA mid 50%. 3Outside Source Comment: Overview: 35+yrs Procedures Procedure Date [...] Only Member Role: Informed Provider Address: Address: [address] [address]- Care Team Related Persons Name: PHANI LIPSCOMB Name: DNEITA RAO
--- OUTSIDE RECORDS SUMMARY | 2023-07-08 05:32 | XMS_ITS | Continuity of Care Document ---
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 UA Protein NEGATIVE 01/08/2023 16:37 EDT UA Urobilinogen 0.2 Uro 01/08/2023 16:37 EDT UA Nitrite NEGATIVE 01/08/2023 16:37 EDT UA Leuk Est NEGATIVE 01/08/2023 16:37 EDT Employed in healthcare? No 01/08/2023 15:17 EDT Symptomatic as defined by CDC? No 01/08/2023 15:17 EDT Hospitalized due to COVID-19? No 01/08/2023 15:17 EDT In ICU? No 01/08/2023 15:17 EDT Group care resident? No 01/08/2023 15:17 EDT status? Not 01/08/2023 15:17 EDT SARS-CoV-2(Covid19)PCR([facility] COVFLURSV) NEGATIVE 01/08/2023 15:17 EDT Flu A ([facility] COVFLURSV) NEGATIVE 01/08/2023 15:17 EDT Flu B ([facility] COVFLURSV) Neg-GeneXPert 01/08/2023 15:17 EDT RSV ([facility] COVFLURSV) Neg-GeneXPert 01/08/2023 15:17 EDT Patient/Press Operator Printing Signature Patient Name:MADISON COBB I have received this information and my questions have been answered. Patient/Press Operator Printing Name: Patient/Press Operator Printing Signature: Relationship to Patient: Witness Name/Signature: Date: Electronically Signed on: 01/08/2023 18:16 EDTSigned by:[facility] Emergency department Note * Cathie Wills H: PERFORM Event Display: ED Notes Authored Date: [id number] Patient Care team information Care Team Personnel Name: Homer Merida MD Position: Physician Member Role: Informed Provider Address: Address: [facility] [address] Name: Asya Hand MD Position: PowerChart View Only Member Role: Primary Care Physician Address: Address: [place] [id number] Name: Eli Olmedo Position: Nurse Member Role: ED Nurse Name: Manan Yancey MD Position: Physician Member Role: ED Physician Address: Address: [address] [place] [phone] [place] Care Team Related Persons Name: PHANI LIPSCOMB Address: Home Name: DENITA RAO Address: Home
--- OUTSIDE RECORDS SUMMARY | 2023-07-08 05:32 | XMS_ITS | Continuity of Care Document ---
Author Name Unknown Organization [facility] Address [address] [place] [address] Care Team Providers Care Bulk Filler Name Role Phone Asya Hand Primary Care Physician Encounter [facility] Date(s): 06/07/23 - 06/07/[address] [phone] Discharge Disposition: Home or Self Care Attending [...] by not to take due to ICH Functional Status 06/07/23 Other exposure to Infectious Disease Non e [...] DAY, # 90 tab, 3 Refill(s), Pharmacy: [facility], 170.18, cm, 09/16/22 6:46:00 EST, Height/Length Dosing, 94.3, kg, 09/16/22 6:46:00 EST, Weight Dosing Start Date: 10/12/22 Status: Ordered Ativan 1 mg oral tablet 1 mg = 1 tab, Oral, BID, PRN as needed for anxiety, X 5 days, # 10 tab, 0 Refill(s), 06/12/23 10:27:00 AM CDT, Pharmacy: [facility], 170, cm, 06/07/23 9:24:00 EDT, Height/Length Dosing, 84.2, kg, 06/07/23 9:24:00 EDT, Weight Dosing Start Date: 06/07/23 Stop Date: 06/12/23 Status: Ordered diphenoxylate-atropine 2.5 mg-0.025 mg oral tablet 30 EA, TAKE ONE TABLET BY MOUTH EVERY 6 HOURS NEEDED, 0 Refill(s) Start Date: 11/09/22 Status: Ordered FLUoxetine 20 mg oral capsule 3 cap, Oral, Daily, # 270 cap, 3 Refill(s), Pharmacy: [facility], 170, cm, 03/06/22 13:18:00 EDT, Height/Length Dosing, 86, kg, 03/06/22 13:18:00 EDT, Weight Dosing Start Date: 07/06/22 Status: Ordered hydrocortisone 2.5% topical cream See Instructions, PRN rash, apply in a thin film to the affected skin and rub in gently and completely, use no more than 3 times daily, # 454 g, 1 Refill(s), Pharmacy: [facility], 170.18, cm, 09/16/22 6:46:00 EST, Height/Length Dosing, 94.3, kg, 09/16/22 6:46:00 EST, Weight Dosing Start Date: 09/24/22 Status: Ordered Incruse Ellipta 62.5 mcg/inh inhalation powder 1 EA, Inhale, every 24 hr, doses should be taken at least 24 hours apart, # 30 EA, 11 Refill(s), Pharmacy: [facility] Start Date: 02/11/22 Stop Date: 02/06/23 Status: Ordered Keppra 250 mg oral tablet 500 mg = 2 tab, Oral, BID, # 120 tab, 5 Refill(s), Pharmacy: [facility], 170.18, cm, 09/16/22 6:46:00 EST, Height/Length Dosing, 94.3, kg, 09/16/22 6:46:00 EST, Weight Dosing Start Date: 09/19/22 Stop Date: 03/18/23 Status: Ordered losartan 50 mg oral tablet 50 mg = 1 tab, Oral, Daily, # 90 tab, 3 Refill(s), Pharmacy: [facility], 170.18, cm, 09/16/22 6:46:00 EST, Height/Length Dosing, 94.3, kg, 09/16/22 6:46:00 EST, Weight Dosing Start Date: 09/19/22 Stop Date: 09/14/23 Status: Ordered Lyrica 300 mg oral capsule 300 mg = 1 cap, Oral, Daily, # 28 cap, 1 Refill(s), Pharmacy: [facility], 170, cm, 03/06/22 13:18:00 EDT, Height/Length Dosing, 86, kg, 03/06/22 13:18:00 EDT, Weight Dosing Start Date: 08/17/22 Stop Date: 10/12/22 Status: Ordered metoprolol succinate 25 mg oral tablet, extended release 25 mg = 1 tab, Oral, Daily, # 90 tab, 3 Refill(s), Pharmacy: [facility], 170.18, cm, 09/16/22 6:46:00 EST, Height/Length [...] Daily, # 14 patches, 1 Refill(s), Pharmacy: [facility], 170.18, cm, 09/16/22 6:46:00 EST, Height/Length Dosing, 94.3, kg, 09/16/22 6:46:00 EST, Weight Dosing Start Date: 09/19/22 Stop Date: 10/17/22 Status: Ordered omeprazole 20 mg oral delayed release capsule 1 cap, Oral, Daily, # 90 cap, 3 Refill(s), Pharmacy: [facility], 170, cm, 03/06/22 13:18:00 EDT, Height/Length [...] Daily, # 90 tab, 3 Refill(s), Pharmacy: [facility], 170, cm, 03/06/22 13:18:00 EDT, Height/Length Dosing, 86, kg, 03/06/22 13:18:00 EDT, Weight Dosing Start Date: 07/22/22 Status: Ordered Send to [facility] Send to [facility], Send to [facility], Supply, See instructions, # 1 EA, 0 Refill(s) Start Date: 05/21/22 Status: Ordered Senna 8.6 mg oral tablet See Instructions, TAKE TWO TABLETS BY MOUTH EVERY DAY NEEDED FOR 14 DAYS, # 28 tab, 3 Refill(s),Pharmacy: [facility], 170, cm, 03/06/22 13:18:00 EDT, Height/Length [...] BEDTIME, # 90 tab, 0 Refill(s), Pharmacy: [facility], 170, cm, 03/06/22 13:18:00 EDT, Height/Length [...] Source Comment: Overview: 02/05/2016 Coronary angiogram at [facility]: LAD mid 50%, OM1 long 40%, RCA [...] 2Mild Gastritis Results Laboratory List Name Date Basic Metabolic Panel (BMP) 06/07/23 CBC w/ Diff 06/07/23 Magnesium Level 06/07/23 Troponin-I 06/07/23 Automated Diff 06/07/23 Most recent to oldest [Reference Range]: 1 WBC [5.0-10.0 x10^3/mcL] 10.6 x10^3/mcL *HI* (06/07/23 9:32 AM) RBC [4.1-5.3 x10^6/mcL] 4.6 x10^6/mcL (06/07/23 9:32 AM) Neutro Auto [40.0-75.0 %] 69.3 % (06/07/23 9:32 AM) Lymph Auto [20.0-50.0 %] 22.0 % (06/07/23 9:32 AM) [place] Auto [2.0-15.0 %] 7.0 % (06/07/23 9:32 AM) Basophil Auto [0.0-1.0 %] 0.6 % (06/07/23 9:32 AM) BUN [7-18 mg/dL] 16 mg/dL (06/07/23 9:32 AM) Glucose Level [74-106 mg/dL] 120 mg/dL *HI* (06/07/23:32 AM) Potassium Level [3.5-5.1 mmol/L] 4.0 mmo l/L (06/07/23 9:32 AM) MCV [80.0-96.0 fL] 93.3 fL (06/07/23: AM) MCHC [31.0-35.0 g/dL] 34.0 g/dL (06/07/23 9:32 AM) Troponin-I [0.0-51.4 pg/mL] <5.0 pg/mL (06/07/23:32 AM) Sodium Level [136-145 mmol/L] 136 mmol/L (06/07/23 9:32 AM) Hct [37.0-47.0 %] 43.0 % (06/07/23: AM) Calcium Level [8.5-10.1 mg/dL] 9.0 mg/dL (06/07/23 9:32 AM) MCH [26.0-32.0 pg] 31.7 pg (06/07/23:32 AM) Magnesium Level [1.8-2.4 mg/dL] 2.2 mg/d L (06/07/23 9:32 AM) Neutro Absolute 7.3 x10^3/mcL *NA* (06/07/23 9:32 AM) Hgb [12.0-16.0 g/dL] 14.6 g/dL (06/07/23 9:32 AM) Platelets [130-450 x10^3/mcL] 263 x10^3/ mcL (06/07/23 9:32 AM) CO2 [21-32 mmol/L] 30 mmol/L (06/07/23 9:32 AM) eGFR Non-AA [>=60] 59 *LOW* (06/07/23 9:32 AM) eGFR AA [>=60] 59 *LOW* (06/07/23 9:32 AM) Chloride Level [98-107 mmol/L] 98 mmol/L (06/07/23 9:32 AM) RDW-CV [11.5-14.5 %] 13.1 % (06/07/23 9:32 AM) Imm Gran Auto [0.0-0.9 %] 0.3 % (06/07/23 9:32 AM) Creatinine Level [0.55-1.02 mg/dL] 1.08 mg/dL *HI* (06/07/23 9:32 AM) Eos, Auto [1.0-6.0 %] 0.8 % *LOW* (06/07/23 9:32 AM) Vital Signs Most recent to oldest [Reference Range]: 1 2 3 Temperature Temporal Artery [36-38 Deg C] 35.7 Deg C *LOW* (06/07/23 9:14 AM) Peripheral Pulse Rate [60-100 bpm] 59 bpm *LOW* (06/07/23 11:15 AM) 63 bpm (06/07/23 10:53 AM) 68 bpm (06/07/23 10:30 AM) Heart Rate Monitored [60-100 bpm] 56 bpm *LOW* (06/07/23 11:35 AM) 61 bpm (06/07/23 11:15 AM) 68 bpm (06/07/23 10:53 AM) Respiratory Rate [12-24 br/min] 12 br/min (06/07/23 11:35 AM) 16 br/min (06/07/23 11:15 AM) 16 br/min (06/07/23 10:53 AM) Blood Pressure [90-140/60-90 mmHg] 144/83mmHg *HI* (06/07/23 11:35 AM) 139/80mmHg (06/07/23 11:15 AM) 131/80mmHg (06/07/23 10:53 AM) Weight Dosing 84.20 kg (06/07/23 9:24 AM) Weight Estimated 84.20 kg (06/07/23 9:14 AM) Height/Length Dosing 170.000 cm (06/07/23 9:24 AM) Height/Length Estimated 170.000 cm (06/07/23 9:14 AM) Social History Social History Type Response Tobacco Current everyday tob acco user Tobacco Use:. 1/2 pack since 01/2022 prior was 1 PPD per day. 40 year(s). Total pack years: 40. Sex Female Physician Emergency department Note * Manan Yancey MD: PERFORM Event Display: ED Note Physician Authored Date: [id number] MADISON COBB :1965 Age:58 years Sex:Female Visit Date:06/07/2023 Primary Care Physician: Asya Hand MD Basic Information Time Seen: Manan Yancey MD / 06/07/2023 10:16 Chief Complaint Pt reports awoken from sleep w/ chest pain at 0300. Pt has history of heart attacks w/ stents. Pt also reports elevated BP (180s SBP at home). Pt also endorses a lot of stress at home. History Of Present Illness: ?? Prior episode with myocardial infarction.Presenting concern is chest pain. ??Time of onset is 6 hours prior to admission. ??Intensity is 5/10. ??Quality is stabbing.?? Radiation is none. ??Precipitating factors are none. ??Aggravating factors are none.?? Alleviating factors are none. Review of Systems: Review of systems negative for fever, chills, shortness of breath, abdominal pain, urinary symptoms, headache. ??Patient does endorse occasional nausea. Physical Exam Vitals & Measurements T:??35.7?C ??(Temporal Artery)?? HR:??63??(Peripheral)?? HR:??68??(Monitored)?? RR:??16?? BP:??131/80?? SpO2:??94%?? HT:??170.000??cm?? WT:??84.20??kg??(Estimated)?? Pain Score:??7?? O2 Therapy:??Room air?? No distress. ??Flat affect.?? Chest auscultation normal. ??Heart auscultation normal. ??Abdominal palpation normal peer extremity exam normal. ??Mental status exam normal.?? No tenderness??to chest palpation. Medical Decision Making: Problem complexity is??low.?? Data complexity is low. ??Management??complexity is??moderate. ??[facility] coding [address]67. Procedure No Qualifying Data Assessment/Plan Ordered: Ativan 1 mg oral tablet, 1 mg = 1 tab, Oral, BID, PRN as needed for anxiety, X 5 days, # 10 tab, 0 Refill(s), 06/12/23 11:27:00 EDT, Pharmacy: [facility], 170, cm, 06/07/23 9:24:00 EDT, Height/Length Dosing, 84.2, kg, 06/07/23 9:24:00 EDT, Weight Dosing nitroglycerin 0.4 mg sublingual tablet, 0.4 mg = 1 tab, SL, Tab, every 5 min, PRN chest pain, FirstDose: 06/07/23 10:03:00 EDT, STAT Discharge Patient, 06/07/23 11:30:00 EDT, Home Independently, Constant Indicator Discharge diagnosis is hypertension, anxiety, atypical chest pain. Medication Reconciliation New Prescription LORazepam (Ativan 1 mg oral tablet)1 tab Oral (given by mouth) 2 times a day as needed as needed for anxiety for 5 Days. Refills: 0. ?? Unchanged albuterol (Albuterol [...] RESP PAP / NIKKI Supplies (Send to [facility])Send to [facility]. Refills: 0. ?? FLUoxetine (FLUoxetine 20 mg [...] 2 Chronic obstructive lung disease Chronic pain Clostridioides difficile Constipation Coronary arteriosclerosis Cyst of face Daily [...] on right shoulder???Total hysterectomy Medication Administration Given amLODIPine, 5 mg, Oral LORazepam, 1 mg, IV Push nitroglycerin 0.4 mg sublingual tablet, 0.4 mg, SL ondansetron, 4 mg, IV Push Allergies ampicillin??(Facial swelling, Skin rash) azithromycin??(Itching) codeine??(Itching) [...] and Differential?? LATEST RESULTS?? HISTORICAL RESULTS?? WBC?? 06/07/23 09:32?? 10.6 ??High?? 04/09/23?? 8.8?? RBC?? 06/07/23 09:32?? 4.6?? 04/09/23?? 5.4 ??High?? Hgb?? 06/07/23 09:32?? 14.6?? 04/09/23?? 16.9 ??High?? Hct?? 06/07/23 09:32?? 43.0?? 04/09/23?? 49.7 ??High?? MCV?? 06/07/23 09:32?? 93.3?? 04/09/23?? 91.5?? MCH?? 06/07/23 09:32?? 31.7?? 04/09/23?? 31.1?? MCHC?? 06/07/23 09:32?? 34.0?? 04/09/23?? 34.0?? RDW-CV?? 06/07/23 09:32?? 13.1?? 04/09/23?? 13.2?? Platelets?? 06/07/23 09:32?? 263?? 04/09/23?? 212?? Neutro Auto?? 06/07/23 09:32?? 69.3?? 04/09/23?? 67.9?? Lymph Auto?? 06/07/23 09:32?? 22.0?? 04/09/23?? 22.5?? [place] Auto?? 06/07/23 09:32?? 7.0?? 04/09/23?? 6.9?? Eos, Auto?? 06/07/23 09:32?? 0.8 ??Low?? 04/09/23?? 1.5?? Basophil Auto?? 06/07/23 09:32?? 0.6?? 04/09/23?? 0.9?? Imm Gran Auto?? 06/07/23 09:32?? 0.3?? 04/09/23?? 0.3?? Neutro Absolute?? 06/07/23 09:32?? 7.3?? 04/09/23?? 6.0? Routine Chemistry?? LATEST RESULTS?? HISTORICAL RESULTS?? Sodium Level?? 06/07/23 09:32?? 136?? 04/09/23?? 137?? Potassium Level?? 06/07/23 09:32?? 4.0?? 04/09/23?? 3.6?? Chloride Level?? 06/07/23 09:32?? 98?? 04/09/23?? 101?? CO2?? 06/07/23 09:32?? 30?? 04/09/23?? 26?? BUN?? 06/07/23 09:32?? 16?? 04/09/23?? 12?? Glucose Level?? 06/07/23 09:32?? 120 ??High?? 04/09/23?? 127 ??High?? Creatinine Level?? 06/07/23 09:32?? 1.08 ??High?? 04/09/23?? 1.06 ??High?? eGFR AA?? 06/07/23 09:32?? 59 ??Low?? 04/09/23?? 61?? eGFR Non-AA?? 06/07/23 09:32?? 59 ??Low?? 04/09/23?? 61?? Calcium Level?? 06/07/23 09:32?? 9.0?? 04/09/23?? 9.1?? Magnesium Level?? 06/07/23 09:32?? 2.2?? 04/09/23?? 1.8? Cardiac Isoenzymes?? LATEST RESULTS?? HISTORICAL RESULTS?? Troponin-I?? 06/07/23 09:32?? <5.0?? 09/19/22?? 22.9? Electronically Signed on 06/07/23 11:31 AM Manan Yancey MD Emergency department Discharge instructions * Manan Yancey MD: PERFORM Event Display: ED Discharge Information Authored Date: [id number] MADISON COBB :1965 Age:58 years Sex:Female Visit Date:06/07/2023 Primary Care Physician: Asya Hand MD Discharge Instructions We would like to thank you for allowing us to assist you with your healthcare needs. The following includes patient education materials and information regarding your injury/illness. Discharge Vitals Temperature??(Temporal Artery) 96.3 ??F (35.7 ??C) Heart Rate??(Peripheral) 63 Heart Rate??(Monitored) 68 Respiratory Rate?? 16 Blood Pressure?? 131/80?? Height?? 66.93 in (170.000 cm) Weight??(Estimated) 185.66 lb (84.20 kg) Allergies ampicillin??(Facial swelling, Skin rash) azithromycin??(Itching) codeine??(Itching) sulfa drugs??(Facial swelling, Skin rash) ALPRAZolam SUMAtriptan amoxicillin??(Unknown) iodinated radiocontrast dyes penicillins What to Do Next Instructions from Your Care Team Take 1 Ativan up to twice daily as needed for anxiety. ??Follow-up with your primary care provider. You were treated today on an emergency [...] Much When Why Instructions Next Dose New LORazepam (Ativan 1 mg oral tablet) 1 tab Oral (given by mouth) 2 times a day as needed for as needed for anxiety Duration: 5 Days Pickup at [facility] Unchanged albuterol (Albuterol (Eqv-ProAir HFA) 90 [...] RESP PAP / [facility] Supplies (Send to [facility]) See instructions Send to [facility] ?? Unchanged FLUoxetine (FLUoxetine 20 mg oral [...] least 24 hours apart ?? Pharmacy Information [facility]: [address] [place], [place] [id number] [phone] Tests Performed Medications and Immunizations Administered Given amLODIPine, 5 mg, Oral LORazepam, 1 mg, IV Push nitroglycerin 0.4 mg sublingual tablet, 0.4 mg, SL ondansetron, 4 mg, IV Push Lab Test Name Test Result Date/Time WBC 10.6 x10^3/mcL 06/07/2023 09:32 EDT RBC 4.6 x10^6/mcL 06/07/2023 09:32 EDT Hgb 14.6 g/dL 06/07/2023 09:32 EDT Hct 43.0 % 06/07/2023 09:32 EDT MCV 93.3 fL 06/07/2023 09:32 EDT MCH 31.7 pg 06/07/2023 09:32 EDT MCHC 34.0 g/dL 06/07/2023 09:32 EDT RDW-CV 13.1 % 06/07/2023 09:32 EDT Platelets 263 x10^3/mcL 06/07/2023 09:32 EDT Neutro Auto 69.3 % 06/07/2023 09:32 EDT Lymph Auto 22.0 % 06/07/2023 09:32 EDT [place] Auto 7.0 % 06/07/2023 09:32 EDT Eos, Auto 0.8 % 06/07/2023 09:32 EDT Basophil Auto 0.6 % 06/07/2023 09:32 EDT Imm Gran Auto 0.3 % 06/07/2023 09:32 EDT Neutro Absolute 7.3 x10^3/mcL 06/07/2023 09:32 EDT Sodium Level 136 mmol/L 06/07/2023 09:32 EDT Potassium Level 4.0 mmol/L 06/07/2023 09:32 EDT Chloride Level 98 mmol/L 06/07/2023 09:32 EDT CO2 30 mmol/L 06/07/2023 09:32 EDT BUN 16 mg/dL 06/07/2023 09:32 EDT Glucose Level 120 mg/dL 06/07/2023 09:32 EDT Creatinine Level 1.08 mg/dL 06/07/2023 09:32 EDT eGFR AA 59 06/07/2023 09:32 EDT eGFR Non-AA 59 06/07/2023 09:32 EDT Calcium Level 9.0 mg/dL 06/07/2023 09:32 EDT Magnesium Level 2.2 mg/dL 06/07/2023 09:32 EDT Troponin-I <5.0 pg/mL 06/07/2023 09:32 EDT Patient/Drafter Cartographic Signature Patient Name:MADISON COBB I have received this information and my questions have been answered. Patient/Drafter Cartographic Name: Patient/Drafter Cartographic Signature: Relationship to Patient: Witness Name/Signature: Date: Electronically Signed on: 06/07/2023 11:31 EDTSigned by:[facility] Emergency department Note * Josie Aldana: PERFORM Event Display: ED Notes Authored Date: Patient Care team information Care Team Personnel Name: Asya Hand MD Position: PowerChart View Only Member Role: Informed Provider Address: Address: [address] [email or web address]] Name: Eli Olmedo Position: Nurse Member Role: ED Nurse Name: Manan Yancey MD Position: Physician Member Role: ED Physician Address: Address: [address] [place] [phone] [place] Care Team Related Persons Name: PHANI LIPSCOMB Name: DENITA RAO
--- OUTSIDE RECORDS SUMMARY | 2023-07-08 05:32 | XMS_ITS | Continuity of Care Document ---
Author Name Unknown Organization [facility] Address [address] [place] [address] Care Team Providers Care Field Test Engineer Name Role Phone Asya Hand Primary Care Physician Encounter [facility] Date(s): 01/14/23 - 01/14/[address] [phone] Discharge Disposition: Home or Self Care Attending [...] DAY, # 90 tab, 3 Refill(s), [facility], 170.18, cm, 09/16/22 6:46:00 EST, Height/Length Dosing, 94.3, kg, 09/16/22 6:46:00 EST, Weight Dosing Start Date: 10/12/22 Status: Ordered diphenoxylate-atropine 2.5 mg-0.025 mg oral tablet 30 EA, TAKE ONE TABLET BY MOUTH EVERY 6 HOURS NEEDED, 0 Refill(s) Start Date: 11/09/22 Status: Ordered FLUoxetine 20 mg oral capsule 3 cap, Oral, Daily, # 270 cap, 3 Refill(s), Pharmacy: [facility], 170, cm, 03/06/22 13:18:00 EDT, Height/Length Dosing, 86, kg, 03/06/22 13:18:00 EDT, Weight Dosing Start Date: 07/06/22 Status: Ordered hydrocortisone 2.5% topical cream See Instructions, PRN rash, apply in a thin film to the affected skin and rub in gently and completely, use no more than 3 times daily, # 454 g, 1 Refill(s), Pharmacy: [facility], 170.18, cm, 09/16/22 6:46:00 EST, Height/Length Dosing, 94.3,... Start Date: 09/24/22 Status: Ordered Incruse Ellipta 62.5 mcg/inh inhalation powder 1 EA, Inhale, every 24 hr, doses should be taken at least 24 hours apart, # 30 EA, 11 Refill(s), Pharmacy: [facility] Start Date: 02/11/22 Stop Date: 02/06/23 Status: Ordered Keppra 250 mg oral tablet 500 mg = 2 tab, Oral, BID, # 120 tab, 5 Refill(s), Pharmacy: [facility], 170.18, cm, 09/16/22 6:46:00 EST, Height/Length Dosing, 94.3, kg, 09/16/22 6:46:00 EST, Weight Dosing Start Date: 09/19/22 Stop Date: 03/18/23 Status: Ordered losartan 50 mg oral tablet 50 mg = 1 tab, Oral, Daily, # 90 tab, 3 Refill(s), Pharmacy: [facility], 170.18, cm, 09/16/22 6:46:00 EST, Height/Length Dosing, 94.3, kg, 09/16/22 6:46:00 EST, Weight Dosing Start Date: 09/19/22 Stop Date: 09/14/23 Status: Ordered Lyrica 300 mg oral capsule 300 mg = 1 cap, Oral, Daily, # 28 cap, 1 Refill(s), Pharmacy: [facility], 170, cm, 03/06/22 13:18:00 EDT, Height/Length Dosing, 86, kg, 03/06/22 13:18:00 EDT, Weight Dosing Start Date: 08/17/22 Stop Date: 10/12/22 Status: Ordered metoprolol succinate 25 mg oral tablet, extended release 25 mg = 1 tab, Oral, Daily, # 90 tab, 3 Refill(s), Pharmacy: [facility], 170.18, cm, 09/16/22 6:46:00 EST, Height/Length [...] Daily, # 14 patches, 1 Refill(s), Pharmacy: [facility], 170.18, cm, 09/16/22 6:46:00 EST, Height/Length Dosing, 94.3, kg, 09/16/22 6:46:00 EST, Weight Dosing Start Date: 09/19/22 Stop Date: 10/17/22 Status: Ordered omeprazole 20 mg oral delayed release capsule 1 cap, Oral, Daily, # 90 cap, 3 Refill(s), Pharmacy: [facility], 170, cm, 03/06/22 13:18:00 EDT, Height/Length [...] Daily, # 90 tab, 3 Refill(s), Pharmacy: [facility], 170, cm, 03/06/22 13:18:00 EDT, Height/Length Dosing, 86, kg, 03/06/22 13:18:00 EDT, Weight Dosing Start Date: 07/22/22 Status: Ordered [facility] to [facility] to [facility], [facility] to [facility], Supply, See instructions, # 1 EA, 0 Refill(s) Start Date: 05/21/22 Status: Ordered Senna 8.6 mg oral tablet See Instructions, TAKE TWO TABLETS BY MOUTH EVERY DAY NEEDED FOR 14 DAYS, # 28 tab, 3 Refill(s),Pharmacy: [facility], 170, cm, 03/06/22 13:18:00 EDT, Height/Length [...] BEDTIME, # 90 tab, 0 Refill(s), Pharmacy: [facility], 170, cm, 03/06/22 13:18:00 EDT, Height/Length [...] Source Comment: Overview: 02/05/2016 Coronary angiogram at [facility]: LAD mid 50%, OM1 long 40%, RCA [...] 2Mild Gastritis Results Laboratory List Name Date Comprehensive Metabolic Panel 01/14/23 Ferritin 01/14/23 Iron Level 01/14/23 Thyroid Stimulating Hormone 01/14/23 Total Iron Binding Capacity 01/14/23 Most recent to oldest [Reference Range]: 1 BUN [7-18 mg/dL] 13 mg/dL (01/14/23 11:47 AM) Glucose Level [74-106 mg/dL] 112 mg/dL *HI* (01/14/23 11:47 AM) Potassium Level [3.5-5.1 mmol/L] 4.2 mmo l/L (01/14/23 11:47 AM) AST [15-37 unit/L] 27 unit/L (01/14/23 11:47 AM) ALT [14-59 unit/L] 24 unit/L (01/14/23 11:47 AM) Sodium Level [136-145 mmol/L] 135 mmol/L *LOW* (01/14/23 11:47 AM) Calcium Level [8.5-10.1 mg/dL] 9.3 mg/dL (01/14/23 11:47 AM) Albumin Level [3.4-5.0 g/dL] 3.5 g/dL (01/14/23 11:47 AM) Protein Total [6.4-8.2 g/dL] 7.3 g/dL (01/14/23 11:47 AM) Bilirubin Total [0.2-1.0 mg/dL] 0.5 mg/d L (01/14/23 11:47 AM) Alk Phos [46-146 unit/L] 91 unit/L (01/14/23 11:47 AM) Ferritin Level [8-252 ng/mL] 101 ng/mL (01/14/23 11:47 AM) CO2 [21-32 mmol/L] 32 mmol/L (01/14/23 11:47 AM) TIBC [250-450 mcg/dL] 254 mcg/dL (01/14/23 11:47 AM) TSH [0.358-3.740 mcIntlUnit/mL] 1.926 mc IntlUnit/mL (01/14/23 11:47 AM) Iron [50-170 mcg/dL] 61 mcg/dL (01/14/23 11:47 AM) eGFR Non-AA [>=60] 58 *LOW* (01/14/23 11:47 AM) eGFR AA [>=60] 58 *LOW* (01/14/23 11:47 AM) Chloride Level [98-107 mmol/L] 100 mmol/ L (01/14/23 11:47 AM) Creatinine Level [0.55-1.02 mg/dL] 1.10 mg/dL *HI* (01/14/23 11:47 AM) Social History Social History Type Response Tobacco Current everyday tob acco user Tobacco Use:. 1/2 pack since 01/2022 prior was 1 PPD per day. 40 year(s). Total pack years: 40. Sex Female Patient Care team information Care Team Personnel Name: Asya Hand MD Position: PowerChart View Only Member Role: Informed Provider Address: Address: [address] Care Team Related Persons Name: PHANI LIPSCOMB Address: Home Name: DENITA RAO Address: Home
--- OUTSIDE RECORDS SUMMARY | 2023-07-08 05:32 | XMS_ITS | Continuity of Care Document ---
Author Name Unknown Organization [facility] Address [address] [place] [address] Care Team Providers Care Drafter Chief Design Name Role Phone Asya Hand Primary Care Physician Encounter [facility] Date(s): 05/04/23 - 05/04/[address] [address] Discharge Disposition: Home or Self Care Attending [...] to this medication 12/11/18 7Pt. instructed by MD not to take due to I[facility] Immunizations Given and Recorded Vaccine Date Status Refusal Reason SARS-CoV-2 (COVID-19) mRNA-1273 vaccine 08/26/21 R ecorded SARS-CoV-2 (COVID-19) mRNA-1273 vaccine 4/27/21 R ecorded SARS-CoV-2 (COVID-19) mRNA-1273 vaccine 12/26/20 [...] DAY, # 90 tab, 3 Refill(s), [facility], 170.18, cm, 09/16/22 6:46:00 EST, Height/Length Dosing, 94.3, kg, 09/16/22 6:46:00 EST, Weight Dosing Start Date: 10/12/22 Status: Ordered diphenoxylate-atropine 2.5 mg-0.025 mg oral tablet 30 EA, TAKE ONE TABLET BY MOUTH EVERY 6 HOURS NEEDED, 0 Refill(s) Start Date: 11/09/22 Status: Ordered FLUoxetine 20 mg oral capsule 3 cap, Oral, Daily, # 270 cap, 3 Refill(s), Pharmacy: [facility] #[facility], 170, cm, 03/06/22 13:18:00 EDT, Height/Length Dosing, 86, kg, 03/06/22 13:18:00 EDT, Weight Dosing Start Date: 07/06/22 Status: Ordered hydrocortisone 2.5% topical cream See Instructions, PRN rash, apply in a thin film to the affected skin and rub in gently and completely, use no more than 3 times daily, # 454 g, 1 Refill(s), Pharmacy: [facility] #[facility], 170.18, cm, 09/16/22 6:46:00 EST, Height/Length Dosing, 94.3, kg, 09/16/22 6:46:00 EST, Weight Dosing Start Date: 09/24/22 Status: Ordered Incruse Ellipta 62.5 mcg/inh inhalation powder 1 EA, Inhale, every 24 hr, doses should be taken at least 24 hours apart, # 30 EA, 11 Refill(s), Pharmacy: [facility] Start Date: 02/11/22 Stop Date: 02/06/23 Status: Ordered Keppra 250 mg oral tablet 500 mg = 2 tab, Oral, BID, # 120 tab, 5 Refill(s), Pharmacy: [facility] #[facility], 170.18, cm, 09/16/22 6:46:00 EST, Height/Length Dosing, 94.3, kg, 09/16/22 6:46:00 EST, Weight Dosing Start Date: 09/19/22 Stop Date: 03/18/23 Status: Ordered losartan 50 mg oral tablet 50 mg = 1 tab, Oral, Daily, # 90 tab, 3 Refill(s), Pharmacy: [facility] #[facility], 170.18, cm, 09/16/22 6:46:00 EST, Height/Length Dosing, 94.3, kg, 09/16/22 6:46:00 EST, Weight Dosing Start Date: 09/19/22 Stop Date: 09/14/23 Status: Ordered Lyrica 300 mg oral capsule 300 mg = 1 cap, Oral, Daily, # 28 cap, 1 Refill(s), Pharmacy: [facility] #58, 170, cm, 03/06/22 13:18:00 EDT, Height/Length Dosing, 86, kg, 03/06/22 13:18:00 EDT, Weight Dosing Start Date: 08/17/22 Stop Date: 10/12/22 Status: Ordered metoprolol succinate 25 mg oral tablet, extended release 25 mg = 1 tab, Oral, Daily, # 90 tab, 3 Refill(s), Pharmacy: [facility] #[facility], 170.18, cm, 09/16/22 6:46:00 EST, Height/Length [...] Daily, # 14 patches, 1 Refill(s), Pharmacy: [facility] #[facility], 170.18, cm, 09/16/22 6:46:00 EST, Height/Length Dosing, 94.3, kg, 09/16/22 6:46:00 EST, Weight Dosing Start Date: 09/19/22 Stop Date: 10/17/22 Status: Ordered omeprazole 20 mg oral delayed release capsule 1 cap, Oral, Daily, # 90 cap, 3 Refill(s), Pharmacy: [facility] #[facility], 170, cm, 03/06/22 13:18:00 EDT, Height/Length [...] Daily, # 90 tab, 3 Refill(s), Pharmacy: [facility] #[facility], 170, cm, 03/06/22 13:18:00 EDT, Height/Length Dosing, 86, kg, 03/06/22 13:18:00 EDT, Weight Dosing Start Date: 07/22/22 Status: Ordered Send to [facility] Send to [facility], Send to [facility], Supply, See instructions, # 1 EA, 0 Refill(s) Start Date: 05/21/22 Status: Ordered Senna 8.6 mg oral tablet See Instructions, TAKE TWO TABLETS BY MOUTH EVERY DAY NEEDED FOR 14 DAYS, # 28 tab, 3 Refill(s),Pharmacy: [facility] #[facility], 170, cm, 03/06/22 13:18:00 EDT, Height/Length [...] BEDTIME, # 90 tab, 0 Refill(s), Pharmacy: [facility] #[facility], 170, cm, 03/06/22 13:18:00 EDT, Height/Length [...] Source Comment: Overview: 02/05/2016 [place] [facility] [place] LAD mid 50%, OM1 long 40%, RCA [...] 2Mild Gastritis Results Laboratory List Name Date Clostridium Difficile 05/04/23 Occult Blood Screen, Feces 05/04/23 Most recent to oldest [Reference Range]: 1 Occult Bld Stl I Positive *ABN* (05/04/23 7:09 AM) Occult Bld Stl ll N/A (05/04/23 7:09 AM) Occult Bld Stl lll N/A (05/04/23 7:09 AM) Clostridium Difficile Toxin [Negative] P ositive *ABN* (05/04/23 7:09 AM) Social History Social History Type Response Tobacco Current everyday tob acco user Tobacco Use:. 1/2 pack since 01/2022 prior was 1 PPD per day. 40 year(s). Total pack years: 40. Sex Female Patient Care team information Care Team Personnel Name: Asya Hand MD Position: PowerChart View Only Member Role: Informed Provider Address: Address: [address] [address]- Care Team Related Persons Name: PHANI LIPSCOMB Address: Home Name: DENITA RAO Address: Home
--- OUTSIDE RECORDS SUMMARY | 2023-07-08 05:33 | XMS_ITS | Continuity of Care Document ---
Author Name Unknown Organization [facility] Address [address] [place] [address] Care Team Providers Care Winding Inspector Name Role Phone Asya Hand Primary Care Physician Encounter [facility]_[place] Date(s): 06/15/23 - 06/15/23 [facility] [address] [place] [address] Allergies, Adverse Reactions, Alerts Substance Reaction Severity [...] DAY, # 90 tab, 3 Refill(s), Pharmacy: [facility] #58, 170.18, cm, 09/16/22 6:46:00 EST, Height/Length Dosing, 94.3, kg, 09/16/22 6:46:00 EST, Weight Dosing Start Date: 10/12/22 Status: Ordered diphenoxylate-atropine 2.5 mg-0.025 mg oral tablet 30 EA, TAKE ONE TABLET BY MOUTH EVERY 6 HOURS NEEDED, 0 Refill(s) Start Date: 11/09/22 Status: Ordered FLUoxetine 20 mg oral capsule 3 cap, Oral, Daily, # 270 cap, 3 Refill(s), Pharmacy: [facility] #58, 170, cm, 03/06/22 13:18:00 EDT, Height/Length Dosing, 86, kg, 03/06/22 13:18:00 EDT, Weight Dosing Start Date: 07/06/22 Status: Ordered hydrocortisone 2.5% topical cream See Instructions, PRN rash, apply in a thin film to the affected skin and rub in gently and completely, use no more than 3 times daily, # 454 g, 1 Refill(s), Pharmacy: [facility] #58, 170.18, cm, 09/16/22 6:46:00 EST, Height/Length Dosing, 94.3, kg, 09/16/22 6:46:00 EST, Weight Dosing Start Date: 09/24/22 Status: Ordered Incruse Ellipta 62.5 mcg/inh inhalation powder 1 EA, Inhale, every 24 hr, doses should be taken at least 24 hours apart, # 30 EA, 11 Refill(s), Pharmacy: [facility] #58 Start Date: 02/11/22 Stop Date: 02/06/23 Status: Ordered Keppra 250 mg oral tablet 500 mg = 2 tab, Oral, BID, # 120 tab, 5 Refill(s), Pharmacy: [facility] #58, 170.18, cm, 09/16/22 6:46:00 EST, Height/Length Dosing, 94.3, kg, 09/16/22 6:46:00 EST, Weight Dosing Start Date: 09/19/22 Stop Date: 03/18/23 Status: Ordered losartan 50 mg oral tablet 50 mg = 1 tab, Oral, Daily, # 90 tab, 3 Refill(s), Pharmacy: [facility] #58, 170.18, cm, 09/16/22 6:46:00 EST, Height/Length Dosing, 94.3, kg, 09/16/22 6:46:00 EST, Weight Dosing Start Date: 09/19/22 Stop Date: 09/14/23 Status: Ordered Lyrica 300 mg oral capsule 300 mg = 1 cap, Oral, Daily, # 28 cap, 1 Refill(s), Pharmacy: [facility] #58, 170, cm, 03/06/22 13:18:00 EDT, Height/Length Dosing, 86, kg, 03/06/22 13:18:00 EDT, Weight Dosing Start Date: 08/17/22 Stop Date: 10/12/22 Status: Ordered metoprolol succinate 25 mg oral tablet, extended release 25 mg = 1 tab, Oral, Daily, # 90 tab, 3 Refill(s), Pharmacy: [facility] #58, 170.18, cm, 09/16/22 6:46:00 EST, Height/Length [...] Daily, # 14 patches, 1 Refill(s), Pharmacy: [facility] #58, 170.18, cm, 09/16/22 6:46:00 EST, Height/Length Dosing, 94.3, kg, 09/16/22 6:46:00 EST, Weight Dosing Start Date: 09/19/22 Stop Date: 10/17/22 Status: Ordered omeprazole 20 mg oral delayed release capsule 1 cap, Oral, Daily, # 90 cap, 3 Refill(s), Pharmacy: [facility] #58, 170, cm, 03/06/22 13:18:00 EDT, Height/Length [...] Daily, # 90 tab, 3 Refill(s), Pharmacy: [facility] #58, 170, cm, 03/06/22 13:18:00 EDT, Height/Length Dosing, 86, kg, 03/06/22 13:18:00 EDT, Weight Dosing Start Date: 07/22/22 Status: Ordered Send to [facility] Send to [facility], Send to [facility], Supply, See instructions, # 1 EA, 0 Refill(s) Start Date: 05/21/22 Status: Ordered Senna 8.6 mg oral tablet See Instructions, TAKE TWO TABLETS BY MOUTH EVERY DAY NEEDED FOR 14 DAYS, # 28 tab, 3 Refill(s),Pharmacy: [facility] #58, 170, cm, 03/06/22 13:18:00 EDT, Height/Length [...] BEDTIME, # 90 tab, 0 Refill(s), Pharmacy: [facility] #58, 170, cm, 03/06/22 13:18:00 EDT, Height/Length [...] Source Comment: Overview: 02/05/[place] [facility] [place] LAD mid 50%, OM1 long 40%, RCA [...] Only Member Role: Informed Provider Address: Address: [address] [address]- [place] Care Team Related Persons Name: PAHNI LIPSCOMB Address: Home Name: DENITA RAO Address: Home
--- OUTSIDE RECORDS SUMMARY | 2023-07-08 05:33 | XMS_ITS | Continuity of Care Document ---
Author Name Unknown Organization [facility] Address [address] [place] [address] Care Team Providers Care Ordnance Corps Officer Name Role Phone Asya Hand Primary Care Physician Encounter [facility] Date(s): 03/23/23 - 03/23/[address] [address] Discharge Disposition: Home or Self Care Attending [...] DAY, # 90 tab, 3 Refill(s), Pharmacy: [facility] #58, 170.18, cm, 09/16/22 6:46:00 EST, Height/Length Dosing, 94.3, kg, 09/16/22 6:46:00 EST, Weight Dosing Start Date: 10/12/22 Status: Ordered diphenoxylate-atropine 2.5 mg-0.025 mg oral tablet 30 EA, TAKE ONE TABLET BY MOUTH EVERY 6 HOURS NEEDED, 0 Refill(s) Start Date: 11/09/22 Status: Ordered FLUoxetine 20 mg oral capsule 3 cap, Oral, Daily, # 270 cap, 3 Refill(s), Pharmacy: [facility] #58, 170, cm, 03/06/22 13:18:00 EDT, Height/Length Dosing, 86, kg, 03/06/22 13:18:00 EDT, Weight Dosing Start Date: 07/06/22 Status: Ordered hydrocortisone 2.5% topical cream See Instructions, PRN rash, apply in a thin film to the affected skin and rub in gently and completely, use no more than 3 times daily, # 454 g, 1 Refill(s), Pharmacy: [facility] #58, 170.18, cm, 09/16/22 6:46:00 EST, Height/Length Dosing, 94.3,... Start Date: 09/24/22 Status: Ordered Incruse Ellipta 62.5 mcg/inh inhalation powder 1 EA, Inhale, every 24 hr, doses should be taken at least 24 hours apart, # 30 EA, 11 Refill(s), Pharmacy: [facility] #[facility] Start Date: 02/11/22 Stop Date: 02/06/23 Status: Ordered Keppra 250 mg oral tablet 500 mg = 2 tab, Oral, BID, # 120 tab, 5 Refill(s), Pharmacy: [facility] #58, 170.18, cm, 09/16/22 6:46:00 EST, Height/Length Dosing, 94.3, kg, 09/16/22 6:46:00 EST, Weight Dosing Start Date: 09/19/22 Stop Date: 03/18/23 Status: Ordered losartan 50 mg oral tablet 50 mg = 1 tab, Oral, Daily, # 90 tab, 3 Refill(s), Pharmacy: [facility] #58, 170.18, cm, 09/16/22 6:46:00 EST, Height/Length Dosing, 94.3, kg, 09/16/22 6:46:00 EST, Weight Dosing Start Date: 09/19/22 Stop Date: 09/14/23 Status: Ordered Lyrica 300 mg oral capsule 300 mg = 1 cap, Oral, Daily, # 28 cap, 1 Refill(s), Pharmacy: [facility] #58, 170, cm, 03/06/22 13:18:00 EDT, Height/Length Dosing, 86, kg, 03/06/22 13:18:00 EDT, Weight Dosing Start Date: 08/17/22 Stop Date: 10/12/22 Status: Ordered metoprolol succinate 25 mg oral tablet, extended release 25 mg = 1 tab, Oral, Daily, # 90 tab, 3 Refill(s), Pharmacy: [facility] #58, 170.18, cm, 09/16/22 6:46:00 EST, Height/Length [...] Daily, # 14 patches, 1 Refill(s), Pharmacy: [facility] #58, 170.18, cm, 09/16/22 6:46:00 EST, Height/Length Dosing, 94.3, kg, 09/16/22 6:46:00 EST, Weight Dosing Start Date: 09/19/22 Stop Date: 10/17/22 Status: Ordered omeprazole 20 mg oral delayed release capsule 1 cap, Oral, Daily, # 90 cap, 3 Refill(s), Pharmacy: [facility] #58, 170, cm, 03/06/22 13:18:00 EDT, Height/Length [...] Daily, # 90 tab, 3 Refill(s), Pharmacy: [facility] #58, 170, cm, 03/06/22 13:18:00 EDT, Height/Length Dosing, 86, kg, 03/06/22 13:18:00 EDT, Weight Dosing Start Date: 07/22/22 Status: Ordered Send to [facility] Send to [facility], Send to [facility], Supply, See instructions, # 1 EA, 0 Refill(s) Start Date: 05/21/22 Status: Ordered Senna 8.6 mg oral tablet See Instructions, TAKE TWO TABLETS BY MOUTH EVERY DAY NEEDED FOR 14 DAYS, # 28 tab, 3 Refill(s),Pharmacy: [facility] #58, 170, cm, 03/06/22 13:18:00 EDT, Height/Length [...] BEDTIME, # 90 tab, 0 Refill(s), Pharmacy: [facility] #[facility], 170, cm, 03/06/22 13:18:00 EDT, Height/Length [...] Source Comment: Overview: 02/05/2016 Coronary angiogram at [facility] [place]: LAD mid 50%, OM1 long 40%, RCA [...] Only Member Role: Informed Provider Address: Address: [id number] [place] [address] Care Team Related Persons Name: PHANI LIPSCOMB Address: Home Name: DENITA RAO Address: Home
--- OUTSIDE RECORDS SUMMARY | 2023-07-08 05:33 | XMS_ITS | Continuity of Care Document ---
Author Name Unknown Organization [facility] Address [address] [place] [address] Encounter [facility] NBR [id number] Date(s): 11/20/22 - 11/20/[address] [address]- Discharge Disposition: Home or Self Care Attending Physician: Ngozi Ortiz Admitting Physician: Ngozi Ortiz
--- OUTSIDE RECORDS SUMMARY | 2023-07-08 05:33 | XMS_ITS | Continuity of Care Document ---
Author Name Unknown Organization [facility] Address [address] [place] [address] Care Team Providers Care Automatic Buffing Wheel Former Name Role Phone Homer Merida Primary Care Physician Encounter [facility]_[place] Date(s): 10/27/22 - 10/27/22 [facility] [address] [place] [address] Discharge Disposition: Home or Self Care Attending Physician: Isabel Huber MD Admitting Physician: Isabel Huber MD Referring Physician: Isabel Huber MD Allergies, Adverse Reactions, Alerts Substance Reaction [...] DAY, # 90 tab, 3 Refill(s), Pharmacy: [facility] #58, 170.18, cm, 09/16/22 6:46:00 EST, Height/Length Dosing, 94.3, kg, 09/16/22 6:46:00 EST, Weight Dosing Start Date: 10/12/22 Status: Ordered busPIRone 15 mg oral tablet 15 mg = 1 tab, Oral, TID, PRN anxiety, Take 1/3 to 1 tablet up to 3 times daily as needed for panicattacks, # 90 tab, 11 Refill(s), Pharmacy: [facility] #58, 170, cm, 03/06/22 13:18:00 EDT, Height/Length Dosing, 86, kg, 03/06/22 13:18:00 EDT, W... Start Date: 05/27/22 Stop Date: 05/22/23 Status: Ordered FLUoxetine 20 mg oral capsule 3 cap, Oral, Daily, # 270 cap, 3 Refill(s), Pharmacy: [facility] #58, 170, cm, 03/06/22 13:18:00 EDT, Height/Length [...] daily, # 454 g, 1 Refill(s), Pharmacy: [facility] #58, 170.18, cm, 09/16/22 6:46:00 EST, Height/Length Dosing, 94.3,... Start Date: 09/24/22 Status: Ordered Incruse Ellipta 62.5 mcg/inh inhalation powder 1 EA, Inhale, every 24 hr, doses should be taken at least 24 hours apart, # 30 EA, 11 Refill(s), Pharmacy: [facility] #58 Start Date: 02/11/22 Stop Date: 02/06/23 Status: Ordered Keppra 250 mg oral tablet 500 mg = 2 tab, Oral, BID, # 120 tab, 5 Refill(s), Pharmacy: [facility] #58, 170.18, cm, 09/16/22 6:46:00 EST, Height/Length Dosing, 94.3, kg, 09/16/22 6:46:00 EST, Weight Dosing Start Date: 09/19/22 Stop Date: 03/18/23 Status: Ordered losartan 50 mg oral tablet 50 mg = 1 tab, Oral, Daily, # 90 tab, 3 Refill(s), Pharmacy: [facility] #58, 170.18, cm, 09/16/22 6:46:00 EST, Height/Length Dosing, 94.3, kg, 09/16/22 6:46:00 EST, Weight Dosing Start Date: 09/19/22 Stop Date: 09/14/23 Status: Ordered Lyrica 300 mg oral capsule 300 mg = 1 cap, Oral, Daily, # 28 cap, 1 Refill(s), Pharmacy: [facility] #58, 170, cm, 03/06/22 13:18:00 EDT, Height/Length Dosing, 86, kg, 03/06/22 13:18:00 EDT, Weight Dosing Start Date: 08/17/22 Stop Date: 10/12/22 Status: Ordered metoprolol succinate 25 mg oral tablet, extended release 25 mg = 1 tab, Oral, Daily, # 90 tab, 3 Refill(s), Pharmacy: [facility] #58, 170.18, cm, 09/16/22 6:46:00 EST, Height/Length [...] Daily, # 14 patches, 1 Refill(s), Pharmacy: [facility] #58, 170.18, cm, 09/16/22 6:46:00 EST, Height/Length Dosing, 94.3, kg, 09/16/22 6:46:00 EST, Weight Dosing Start Date: 09/19/22 Stop Date: 10/17/22 Status: Ordered omeprazole 20 mg oral delayed release capsule 1 cap, Oral, Daily, # 90 cap, 3 Refill(s), Pharmacy: [facility] #58, 170, cm, 03/06/22 13:18:00 EDT, Height/Length Dosing, 86, kg, 03/06/22 13:18:00 EDT, Weight Dosing Start Date: 04/27/22 Status: Ordered oxyCODONE 15 mg oral tablet 15 mg = 1 tab, Oral, every 6 hr, PRN pain, severe, # 112 tab, 0 Refill(s), Pharmacy: [facility] #58, 170, cm, 03/06/22 13:18:00 EDT, Height/Length Dosing, 86, kg, 03/06/22 13:18:00 EDT, Weight Dosing Start Date: 08/17/22 Stop Date: 09/14/22 Status: Ordered oxyCODONE 15 mg oral tablet 15 mg = 1 tab, Oral, every 6 hr, PRN pain, severe, # 112 tab, 0 Refill(s), Pharmacy: [facility] #58, 170, cm, 03/06/22 13:18:00 EDT, Height/Length Dosing, 86, kg, 03/06/22 13:18:00 EDT, Weight Dosing Start Date: 08/17/22 Stop Date: 09/14/22 Status: Ordered oxyCODONE 15 mg oral tablet 15 mg = 1 tab, Oral, every 6 hr, PRN pain, severe, # 112 tab, 0 Refill(s), Pharmacy: [facility] #58, 170, cm, 03/06/22 13:18:00 EDT, Height/Length Dosing, 86, kg, 03/06/22 13:18:00 EDT, Weight Dosing Start Date: 08/17/22 Stop Date: 09/14/22 Status: Ordered rosuvastatin 10 mg oral tablet 1 tab, Oral, Daily, # 90 tab, 3 Refill(s), Pharmacy: [facility] #58, 170, cm, 03/06/22 13:18:00 EDT, Height/Length Dosing, 86, kg, 03/06/22 13:18:00 EDT, Weight Dosing Start Date: 07/22/22 Status: Ordered Send to [facility] Send to [facility], Send to [facility], Supply, See instructions, # 1 EA, 0 Refill(s) Start Date: 05/21/22 Status: Ordered Senna 8.6 mg oral tablet See Instructions, TAKE TWO TABLETS BY MOUTH EVERY DAY NEEDED FOR 14 DAYS, # 28 tab, 3 Refill(s),Pharmacy: [facility] #58, 170, cm, 03/06/22 13:18:00 EDT, Height/Length Dosing, 86, kg, 03/06/22 13:18:00 EDT, Weight Dosing Start Date: 06/15/22 Status: Ordered Symbicort 80 mcg-4.5 mcg/inh inhalation aerosol 2 puffs, Inhale, BID Start Date: 03/26/22 Status: Ordered traZODone 300 mg oral tablet See Instructions, TAKE ONE TABLET BY MOUTH AT BEDTIME, # 90 tab, 0 Refill(s), Pharmacy: [facility] #58, 170, cm, 03/06/22 13:18:00 EDT, Height/Length [...] 38. Sex Female Patient Care team information Personnel Name: Homer Merida MD Address: Address: [facility] [address]
--- OUTSIDE RECORDS SUMMARY | 2023-07-08 05:33 | XMS_ITS | CCD ---
Author Name Unknown Address [address] [place] [id number] Organization Unknown Address [address], [place] [id number] Care Team Providers Care Bisque Finisher Name Role Phone ASIF VELAZQUEZ Attending Physician [phone] Vital Signs Unknown or Not Available. Allergies Unknown or Not Available. Procedures Unknown or Not Available. History of Immunizations Unknown or Not Available. Problems Unknown or Not Available. Results Unknown or Not Available. Active Medications Unknown or Not Available. Medications Administered During Visit Unknown or Not Available. Encounters Encounter Diagnosis Diagnosis Code Start Date Atherosclerotic heart diseas e of [place] coronary artery without angina pectoris [id number] 01/20/2023 Social History Smoking Status Code Start Date End Date Current every day smoker [id number] Patient Decision Aids Unknown or Not Available. Discharge Instructions You were admitted to [facility] on 01/20/2023 11:13 with a principal diagnosis of Atherosclerotic heart disease of [place] coronary artery without angina pectoris You were discharged from [facility] on 01/20/2023 11:14 Should you have any questions prior to discharge, please contact a member of your healthcare team. If you have left the hospital and have any questions, please contact your primary care physician. Chief Complaint and Reason For Visit Unknown or Not Available. Function Status Unknown or Not Available. Plan of Care Unknown or Not Available. Referral/Transition of Care Unknown or Not Available.
--- OUTSIDE RECORDS SUMMARY | 2023-07-08 05:33 | XMS_ITS | Continuity of Care Document ---
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 04/09/2023 10:00 EDT UA Nitrite NEGATIVE 04/09/2023 10:00 EDT UA Leuk Est TRACE. 04/09/2023 10:00 EDT UA Culture Ind?. Indicated 04/09/2023 10:00 EDT UA WBC 0-3 04/09/2023 10:00 EDT UA RBC 0-2 04/09/2023 10:00 EDT UA Squam Epithelial Moderate 04/09/2023 10:00 EDT UA Mucous Moderate 04/09/2023 10:00 EDT UA Bacteria Moderate 04/09/2023 10:00 EDT UA Hyal Cast Rare 04/09/2023 10:00 EDT Patient/Failure Analysis Technician Signature Patient Name:MADISON COBB I have received this information and my questions have been answered. Patient/Failure Analysis Technician Name: Patient/Failure Analysis Technician Signature: Relationship to Patient: Witness Name/Signature: Date: Electronically Signed on: 04/09/2023 11:37 EDTSigned by:[facility] Emergency department Note * Josie Aldana: PERFORM Event Display: ED Notes Authored Date: [id number] Patient Care team information Care Team Personnel Name: Asya Hand MD Position: PowerChart View Only Member Role: Informed Provider Address: Address: [place] [id number] Name: [facility] Position: Nurse Member Role: ED Nurse Name: Manan Yancey MD Position: Physician Member Role: ED Physician Address: Address: [address] [place] [id number] Care Team Related Persons Name: PHANI LIPSCOMB Address: Home Name: DENITA RAO Address: Home
--- OUTSIDE RECORDS SUMMARY | 2023-07-08 05:33 | XMS_ITS | Continuity of Care Document ---
Author Name Unknown Organization [facility] Address [address] [place] [address] Care Team Providers [employer] Name Role Phone Homer Merida Primary Care Physician [phone] Encounter NCTY_MS Date(s): 09/16/22 - 09/19/22 [facility] [address] [place] [address] Encounter Diagnosis Seizure(Discharge Diagnosis) - 09/16/22 Chronic obstructive lung disease(Discharge Diagnosis) - 09/17/22 Encephalitis(Discharge Diagnosis) - 09/17/22 PRES (posterior reversible encephalopathy syndrome)(Discharge Diagnosis) - 09/19/22 Alcoholism(Discharge Diagnosis) - 09/16/22 Cerebrovascular accident(Discharge Diagnosis) - 09/16/22 Elevated troponin level(Discharge Diagnosis) - 09/17/22 Hypertension(Discharge Diagnosis) - 09/17/22 Degeneration of lumbar intervertebral disc(Discharge Diagnosis) - 09/16/22 Mixed anxiety and depressive disorder(Discharge Diagnosis) - 09/16/22 Chronic pain(Discharge Diagnosis) - 09/16/22 COVID-19(Discharge Diagnosis) - 09/16/22 Discharge Disposition: Home or Self Care Attending Physician: Homer Merida MD Admitting Physician: Homer Merida MD Allergies, Adverse Reactions, Alerts Substance Reaction Severity Status codeine Itching Moderate Active ampicillin 1 Facial swelling Skin rash Moderate Active penicillins 2 Unknown Active sulfa drugs Facial swelling Skin rash Moderate Active ALPRAZolam 3 Unknown Active azithromycin 4 Itching Moderate Active iodinated radiocontrast dyes 5 Unknown Active SUMAtriptan 6 Unknown Active 1Pt states as a child 2as a child 3Pt states she's not allergic to this medication 12/11/18 4patient states on 03/04/2022 that she is not allergice, just finished taking it and wants it off her allergy list 5had side effect to IV contrast used for heard testing 5 years ago ( [facility]),, pt tells they dont use that contrast any more and had other CT po and IV contrast since with no reaction 6Pt. instructed by MD not to take due to ICH Assessment and Plan Future Appointments Diagnostic Tests Pending * Zelal[place]-Alcant[place] Virus (EBV) PCR, Varies [facility] 09/17/22 * Oligoclonal Banding, Serum & CSF [place] 09/17/22 * IGG Index, CSF Performable [facility] 09/17/22 * West Nile Virus Ab, IgG & IgM, CSF [place] 09/17/22 * Equine Encephalitis Abs IgG/IgM CSF [place] 09/17/22 * VDRL, CSF [place] 09/17/22 Future Scheduled Tests Radiology* MRI Brain w/ + w/o Contrast 09/19/22 Functional Status 09/18/22 Dinner Percent 90 09/18/22 Lunch Percent 100 09/18/22 Personal Care Provided Gown change, Hair care, Linen change, Shampoo, Shower 09/18/22 Breakfast Percent 100 09/17/22 Other exposure to Infectious Disease Com munity exposure to COVID-19 within the last 14 days 09/16/22 Living Environment Living Situation: Ho me independently Current Home Treatments: Nebulizer treatments, Oxygen therapy Home Devices/Equipment Professional Skilled Services: Special Services and Community Resources: Sensory Deficits: Performed by: Laxmi Vigil-09/16/22 16:09:00 Lives In Apartment Lives With Other: Per pt sh has guardianship of 2 grandchildren who live with her. Living Situation Home independently 09/16/22 Current Home Treatments Nebulizer treatm ents, Oxygen therapy Immunizations Given and Recorded Vaccine Date Status [...] WITH SPACER) Start Date: 02/11/22 Status: Ordered aspirin 81 mg oral tablet, chewable 81 mg = 1 tab, Chewed, Daily Start Date: 02/11/22 Status: Ordered busPIRone 15 mg oral tablet 15 mg = 1 tab, Oral, TID, PRN anxiety, Take 1/3 to 1 tablet up to 3 times daily as needed for panicattacks, # 90 tab, 11 Refill(s), Pharmacy: [id number], 170, cm, 03/06/22 13:18:00 EDT, Height/Length Dosing, 86, kg, 03/06/22 13:18:00 EDT, W... Start Date: 05/27/22 Stop Date: 05/22/23 Status: Ordered FLUoxetine 20 mg oral capsule 3 cap, Oral, Daily, # 270 cap, 3 Refill(s), Pharmacy: [facility], 170, cm, 03/06/22 13:18:00 EDT, Height/Length Dosing, 86, kg, 03/06/22 13:18:00 EDT, Weight Dosing Start Date: 07/06/22 Status: Ordered fluticasone 50 mcg/inh nasal spray 1 sprays, Nostril-Both, Daily, PRN allergy symptoms Start Date: 03/26/22 Status: Ordered Incruse Ellipta 62.5 mcg/inh inhalation powder 1 EA, Inhale, every 24 hr, doses should be taken at least 24 hours apart, # 30 EA, 11 Refill(s), Pharmacy: [facility] Start Date: 02/11/22 Stop Date: 02/06/23 Status: Ordered Keppra 250 mg oral tablet 500 mg = 2 tab, Oral, BID, # 120 tab, 5 Refill(s), Pharmacy: [facility], 170.18, cm, 09/16/22 6:46:00 EST, Height/Length Dosing, 94.3, kg, 09/16/22 6:46:00 EST, Weight Dosing Start Date: 09/19/22 Stop Date: 03/18/23 Status: Ordered losartan 50 mg oral tablet 50 mg = 1 tab, Oral, Daily, # 90 tab, 3 Refill(s), Pharmacy: [facility], 170.18, cm, 09/16/22 6:46:00 EST, Height/Length Dosing, 94.3, kg, 09/16/22 6:46:00 EST, Weight Dosing Start Date: 09/19/22 Stop Date: 09/14/23 Status: Ordered Lyrica 300 mg oral capsule 300 mg = 1 cap, Oral, Daily, # 28 cap, 1 Refill(s), Pharmacy: [facility], 170, cm, 03/06/22 13:18:00 EDT, Height/Length Dosing, 86, kg, 03/06/22 13:18:00 EDT, Weight Dosing Start Date: 08/17/22 Stop Date: 10/12/22 Status: Ordered metoprolol succinate 25 mg oral tablet, extended release 25 mg = 1 tab, Oral, Daily, # 90 tab, 3 Refill(s), Pharmacy: [facility], 170.18, cm, 09/16/22 6:46:00 EST, Height/Length Dosing, 94.3, kg, 09/16/22 6:46:00 EST, Weight Dosing Start Date: 09/19/22 Stop Date: 09/14/23 Status: Ordered metoprolol tartrate 25 mg = 1 tab, Oral, Tab, First Dose: 09/18/22 3:00:00 EST, Stop Date: 09/18/22 3:00:00 EST Start Date: 09/18/22 Stop Date: 09/18/22 Status: Completed naproxen 500 mg oral tablet 500 mg = 1 tab, Oral, BID, PRN as needed for pain, As directed Start Date: 02/11/22 Status: Ordered nicotine 7 mg/24 hr transdermal film, extended release 1 patches, TD, Daily, # 14 patches, 1 Refill(s), Pharmacy: [facility], 170.18, cm, 09/16/22 6:46:00 EST, Height/Length Dosing, 94.3, kg, 09/16/22 6:46:00 EST, Weight Dosing Start Date: 09/19/22 Stop Date: 10/17/22 Status: Ordered omeprazole 20 mg oral delayed release capsule 1 cap, Oral, Daily, # 90 cap, 3 Refill(s), Pharmacy: [facility], 170, cm, 03/06/22 13:18:00 EDT, Height/Length Dosing, 86, kg, 03/06/22 13:18:00 EDT, Weight Dosing Start Date: 04/27/22 Status: Ordered oxyCODONE 15 mg oral tablet 15 mg = 1 tab, Oral, every 6 hr, PRN pain, severe, # 112 tab, 0 Refill(s), Pharmacy: [facility], 170, cm, 03/06/22 13:18:00 EDT, Height/Length Dosing, 86, kg, 03/06/22 13:18:00 EDT, Weight Dosing Start Date: 08/17/22 Stop Date: 09/14/22 Status: Ordered oxyCODONE 15 mg oral tablet 15 mg = 1 tab, Oral, every 6 hr, PRN pain, severe, # 112 tab, 0 Refill(s), Pharmacy: [facility], 170, cm, 03/06/22 13:18:00 EDT, Height/Length Dosing, 86, kg, 03/06/22 13:18:00 EDT, Weight Dosing Start Date: 08/17/22 Stop Date: 09/14/22 Status: Ordered oxyCODONE 15 mg oral tablet 15 mg = 1 tab, Oral, every 6 hr, PRN pain, severe, # 112 tab, 0 Refill(s), Pharmacy: [facility], 170, cm, 03/06/22 13:18:00 EDT, Height/Length Dosing, 86, kg, 03/06/22 13:18:00 EDT, Weight Dosing Start Date: 08/17/22 Stop Date: 09/14/22 Status: Ordered rosuvastatin 10 mg oral tablet 1 tab, Oral, Daily, # 90 tab, 3 Refill(s), Pharmacy: [facility], 170, cm, 03/06/22 13:18:00 EDT, Height/Length [...] 14 DAYS, # 28 tab, 3 Refill(s),Pharmacy: [facility], 170, cm, 03/06/22 13:18:00 EDT, Height/Length Dosing, 86, kg, 03/06/22 13:18:00 EDT, Weight Dosing Start Date: 06/15/22 Status: Ordered Symbicort 80 mcg-4.5 mcg/inh inhalation aerosol 2 puffs, Inhale, BID Start Date: 03/26/22 Status: Ordered traZODone 300 mg oral tablet See Instructions, TAKE ONE TABLET BY MOUTH AT BEDTIME, # 90 tab, 0 Refill(s), Pharmacy: [facility], 170, cm, 03/06/22 13:18:00 EDT, Height/Length Dosing, 86, kg, 03/06/22 13:18:00 EDT, Weight Dosing Start Date: 08/15/22 Status: Ordered Mental Status 09/16/22 Response to Current Year Correct Response to Current Month Correct Response to Current Time Correct Count Backward 20 to 1 Correct State Months in Reverse Order 2 Or more errors Eye Opening Response Sydnee Spontaneous ly Best Verbal Response [place] Oriented Best Motor Response Sydnee Obeys nidhi ds [place] Coma Score 15 Problem List Condition Confirmation Course Effective Dates [...] 2Mild Gastritis Results Laboratory List Name Date CBC w/o Diff 09/19/22 Comprehensive Metabolic Panel 09/19/22 Magnesium Level 09/19/22 Phosphorus Level 09/19/22 Troponin-I 09/19/22 CBC w/o Diff 09/18/22 Comprehensive Metabolic Panel 09/18/22 Magnesium Level 09/18/22 Phosphorus Level 09/18/22 Troponin-I 09/18/22 Cell Count w/ Diff CSF 09/17/22 Glucose CSF 09/17/22 Protein CSF 09/17/22 HSV Molecular Detection, PCR [facility] 2 CBC w/o Diff 09/17/22 Comprehensive Metabolic Panel 09/17/22 Influenza A/B (ID NOW) 09/17/22 Magnesium Level 09/17/22 Phosphorus Level 09/17/22 Troponin-I 09/17/22 Creatine Kinase (CK) 09/16/22 TSH w/ Rflx to Free T4 09/16/22 Drug Screen Urine 09/16/22 Urinalysis with Micro if Indicated and C ulture if Indicated 09/16/22 Urinalysis Microscopic 09/16/22 Acetaminophen Level 09/16/22 Alcohol Level 09/16/22 SARS-CoV-2 (COVID-19)/Flu/RSV ([facility] ) 09/16/22 Salicylate Level 09/16/22 Automated Diff 09/16/22 Most recent to oldest [Reference Range]: 1 2 3 WBC [5.0-10.0 x10^3/mcL] 10.3 x10^3/mcL *HI* (09/19/22 6:45 AM) 12.8 x10^3/mcL *HI* (09/18/22 7:15 AM) 13.9 x10^3/mcL *HI* (09/17/22 7:10 AM) RBC [4.1-5.3 x10^6/mcL] 4.4 x10^6/mcL (09/19/22 6:45 AM) 4.5 x10^6/mcL (09/18/22 7:15 AM) 4.8 x10^6/mcL (09/17/22 7:10 AM) Neutro Auto [40.0-75.0 %] 79.9 % *HI* (09/16/22 6:48 AM) Lymph Auto [20.0-50.0 %] 14.6 % *LOW* (09/16/22 6:48 AM) [place] Auto [2.0-15.0 %] 4.5 % (09/16/22 6:48 AM) Basophil Auto [0.0-1.0 %] 0.4 % (09/16/22 6:48 AM) BUN [7-18 mg/dL] 12 mg/dL (09/19/22 6:45 AM) 15 mg/dL (09/18/22 7:15 AM) 12 mg/dL (09/17/22 7:10 AM) U Amph Scrn [Negative] Negative (09/16/22 7:03 AM) UA Color Yellow (09/16/22 7:03 AM) UA WBC [0-3] 0-3 (09/16/22 7:03 AM) Glucose Level [74-106 mg/dL] 104 mg/dL (09/19/22 6:45 AM) 117 mg/dL *HI* (09/18/22 7:15 AM) 115 mg/dL *HI* (09/17/22 7:10 AM) Potassium Level [3.5-5.1 mmol/L] 4.3 mmol/L (09/19/22 6:45 AM) 4.1 mmol/L (09/18/22 7:15 AM) 3.5 mmol/L (09/17/22 7:10 AM) Glucose CSF [40-70 mg/dL] 59 mg/dL (09/17/22 5:20 PM) U Benzodia Scrn [Negative] Negative (09/16/22 7:03 AM) MCV [80.0-96.0] 94.3 (09/19/22 6:45 AM) 93.6 (09/18/22 7:15 AM) 91.7 (09/17/22 7:10 AM) UA Urobilinogen Normal (09/16/22 7:03 AM) UA Bili [Negative] Negative (09/16/22 7:03 AM) UA Ketones Negative (09/16/22 7:03 AM) AST [15-37 unit/L] 35 unit/L (09/19/22 6:45 AM) 36 unit/L (09/18/22 7:15 AM) 27 unit/L (09/17/22 7:10 AM) ALT [14-59 unit/L] 26 unit/L (09/19/22 6:45 AM) 23 unit/L (09/18/22 7:15 AM) 16 unit/L (09/17/22 7:10 AM) MCHC [31.0-35.0 g/dL] 33.3 g/dL (09/19/22 6:45 AM) 33.4 g/dL (09/18/22 7:15 AM) 33.9 g/dL (09/17/22 7:10 AM) WBC CSF <0.003 x10^3/mcL *NA* (09/17/22 5:20 PM) Troponin-I [0.0-51.4 pg/mL] 22.9 pg/mL (09/19/22 6:45 AM) 48.6 pg/mL (09/18/22 7:15 AM) 239.6 pg/mL 1 *CRIT* (09/17/22 7:10 AM) Sodium Level [136-145 mmol/L] 137 mmol/L (09/19/22 6:45 AM) 135 mmol/L *LOW* (09/18/22 7:15 AM) 138 mmol/L (09/17/22 7:10 AM) UA RBC [0-2] 0-2 (09/16/22 7:03 AM) UA Leuk Est Negative (09/16/22 7:03 AM) UA Nitrite Negative (09/16/22 7:03 AM) UA Glucose [Negative] Negative (09/16/22 7:03 AM) Hct [37.0-47.0 %] 41.4 % (09/19/22 6:45 AM) 42.2 % (09/18/22 7:15 AM) 44.3 % (09/17/22 7:10 AM) UA Bacteria Few /HPF *ABN* (09/16/22 7:03 AM) U Cocaine Scrn [Negative] Negative (09/16/22 7:03 AM) Xanthochromia CSF [Absent] Absent (09/17/22 5:20 PM) Calcium Level [8.5-10.1 mg/dL] 9.2 mg/dL (09/19/22 6:45 AM) 9.1 mg/dL (09/18/22 7:15 AM) 8.8 mg/dL (09/17/22 7:10 AM) Phosphorus Level [2.6-4.7 mg/dL] 4.0 mg/dL (09/19/22 6:45 AM) 2.9 mg/dL (09/18/22 7:15 AM) 2.4 mg/dL *LOW* (09/17/22 7:10 AM) Albumin Level [3.4-5.0 g/dL] 3.6 g/dL (09/19/22 6:45 AM) 3.6 g/dL (09/18/22 7:15 AM) 3.4 g/dL (09/17/22 7:10 AM) Protein Total [6.4-8.2 g/dL] 7.3 g/dL (09/19/22 6:45 AM) 7.4 g/dL (09/18/22 7:15 AM) 7.2 g/dL (09/17/22 7:10 AM) UA Protein 2+ *ABN* (09/16/22 7:03 AM) MCH [26.0-32.0 pg] 31.4 pg (09/19/22 6:45 AM) 31.3 pg (09/18/22 7:15 AM) 31.1 pg (09/17/22 7:10 AM) Magnesium Level [1.8-2.4 mg/dL] 1.8 mg/dL (09/19/22 6:45 AM) 1.8 mg/dL (09/18/22 7:15 AM) 1.8 mg/dL (09/17/22 7:10 AM) Neutro Absolute 10.5 x10^3/mcL *NA* (09/16/22 6:48 AM) Bilirubin Total [0.2-1.0 mg/dL] 0.8 mg/dL (09/19/22 6:45 AM) 1.0 mg/dL (09/18/22 7:15 AM) 0.9 mg/dL (09/17/22 7:10 AM) Hgb [12.0-16.0 g/dL] 13.8 g/dL (09/19/22 6:45 AM) 14.1 g/dL (09/18/22 7:15 AM) 15.0 g/dL (09/17/22 7:10 AM) RBC CSF 10.000 x10^6/mcL *NA* (09/17/22 5:20 PM) Alk Phos [46-146 unit/L] 77 unit/L (09/19/22 6:45 AM) 77 unit/L (09/18/22 7:15 AM) 78 unit/L (09/17/22 7:10 AM) UA Blood 2+ *ABN* (09/16/22 7:03 AM) Salicylate Level [2.8-20.0 mg/dL] 5.6 mg/dL (09/16/22 6:48 AM) Ethanol Level [0-10 mg/dL] <5 mg/dL (09/16/22 6:48 AM) UA Mucous None Seen /HPF (09/16/22 7:03 AM) UA Spec Grav >=1.030 *NA* (09/16/22 7:03 AM) Platelets [130-450 x10^3/mcL] 211 x10^3/mcL (09/19/22 6:45 AM) 230 x10^3/mcL (09/18/22 7:15 AM) 242 x10^3/mcL (09/17/22 7:10 AM) Protein CSF [15-45 mg/dL] 40 mg/dL (09/17/22 5:20 PM) CO2 [21-32 mmol/L] 30 mmol/L (09/19/22 6:45 AM) 26 mmol/L (09/18/22 7:15 AM) 25 mmol/L (09/17/22 7:10 AM) U Valarie Scrn [Negative] Negative (09/16/22 7:03 AM) UA Squam Epithelial [None Seen] None Seen (09/16/22 7:03 AM) TSH [0.358-3.740 mcIntlUnit/mL] 2.809 mcIntlUnit/mL (09/16/22 7:30 PM) UA pH 5.5 *NA* (09/16/22 7:03 AM) Clarity CSF [Clear] Clear (09/17/22 5:20 PM) U Opiate Scrn [Negative] Negative (09/16/22 7:03 AM) eGFR Non-AA [>=60] 60 (09/19/22 6:45 AM) 58 *LOW* (09/18/22 7:15 AM) 61 (09/17/22 7:10 AM) eGFR AA [>=60] 60 (09/19/22 6:45 AM) 58 *LOW* (09/18/22 7:15 AM) 61 (09/17/22 7:10 AM) UA Appear Hazy *ABN* (09/16/22 7:03 AM) Acetaminophen Level [10-20 ug/mL] <10 ug/mL *LOW* (09/16/22 6:48 AM) Chloride Level [98-107 mmol/L] 102 mmol/L (09/19/22 6:45 AM) 100 mmol/L (09/18/22 7:15 AM) 103 mmol/L (09/17/22 7:10 AM) U Oxy Scrn [Negative] Negative (09/16/22 7:03 AM) U PCP Scrn [Negative] Negative (09/16/22 7:03 AM) RDW-CV [11.7-17.0 %] 12.8 % (09/19/22 6:45 AM) 13.3 % (09/18/22 7:15 AM) 13.4 % (09/17/22 7:10 AM) U THC Scr [Negative] Positive *ABN* (09/16/22 7:03 AM) U PPX Scr [Negative] Negative (09/16/22 7:03 AM) U Methadone Scr [Negative] Negative (09/16/22 7:03 AM) Imm Gran Auto [0.0-0.9 %] 0.5 % (09/16/22 6:48 AM) UA Culture Ind?. Indicated (09/16/22 7:03 AM) U Buprenorph Scr [Negative] Negative (09/16/22 7:03 AM) U mAMP Scr [Negative] Negative (09/16/22 7:03 AM) U TCA Scr [Negative] Negative (09/16/22 7:03 AM) UA Amorph Moderate /HPF (09/16/22 7:03 AM) Influenza A -IDNOW Not Detected (09/17/22 7:10 AM) Influenza B -IDNOW Not Detected (09/17/22 7:10 AM) Creatinine Level [0.55-1.02 mg/dL] 1.07 mg/dL *HI* (09/19/22 6:45 AM) 1.10 mg/dL *HI* (09/18/22 7:15 AM) 1.05 mg/dL *HI* (09/17/22 7:10 AM) Employed in healthcare? Unknown *NA* (09/16/22 6:48 AM) Symptomatic as defined by CDC? Unknown *NA* (09/16/22 6:48 AM) Hospitalized due to COVID-19? No *NA* (09/16/22 6:48 AM) In ICU? No *NA* (09/16/22 6:48 AM) Group care resident? No *NA* (09/16/22 6:48 AM) status? Not *NA* (09/16/22 6:48 AM) SARS-CoV-2(Covid19)PCR(GXper t COVFLURSV) [Negative] Negative (09/16/22 6:48 AM) Flu A ([facility] COVFLURSV) [Negative] Negative (09/16/22 6:48 AM) RSV ([facility] COVFLURSV) [Negative] Negative (09/16/22 6:48 AM) Flu B ([facility] COVFLURSV) [Negative] Negative (09/16/22 6:48 AM) HSV Molecular Detection 1, PCR [facility] [Negative] Negative *NA* (09/17/22 5:20 PM) HSV Molecular Detection 2, PCR [facility] [Negative] Negative 2 *NA* (09/17/22 5:20 PM) Eos, Auto [1.0-6.0 %] 0.1 % *LOW* (09/16/22 6:48 AM) CK [26-192 unit/L] 380 unit/L *HI* (09/16/22 7:30 PM) 1Result Comment: called to Zuly Anderson on [facility] 2Result Comment: This test was developed and its performance characteristics determined by [facility]. It has not been cleared or approved by the US Food and Drug Administration. FDA does not require this test to go through premarket FDA review. This test is used for clinical purposes. It should not be regarded as investigational or research. This laboratory is certified under the Clinical Laboratory Improvement Amendments (CLIA) as qualified to perform high complexity clinical laboratory testing. Source:CSF Test performed [place] [address] Orders for Microbiology Reports Name Date Cerebrospinal Fluid Culture 09/17/22 Urine Culture 09/16/22 Microbiology Reports TEST:Cerebrospinal Fluid Culture STATUS:Order in Progress BODY SITE: SOURCE:Cerebrospinal Fluid COLLECTED DATE/TIME:09/17/22 5:20 PM PRELIMINARY REPORT No growth at 48 hours. STAIN REPORT No organisms seen. TEST:Urine Culture STATUS:Auth (Verified) BODY SITE: SOURCE:Urine COLLECTED DATE/TIME:09/16/22 7:03 AM FINAL REPORT <10,000 cfu/ml Gram Positive Cocci Vital Signs Most recent to oldest [Reference Range]: 1 2 3 Temperature Temporal Artery [36-38 Deg C] 36.5 Deg C (09/19/22 2:16 PM) 36.8 Deg C (09/19/22 10:21 AM) 36.7 Deg C (09/19/22 6:20 AM) Peripheral Pulse Rate [60-100 bpm] 66 bpm (09/19/22 2:16 PM) 61 bpm (09/19/22 10:21 AM) 60 bpm (09/19/22 7:00 AM) Heart Rate Monitored [60-100 bpm] 62 bpm (09/18/22 2:14 AM) 81 bpm (09/17/22 3:10 AM) 94 bpm (09/16/22 9:54 PM) Respiratory Rate [12-24 br/min] 16 br/min (09/19/22 2:16 PM) 19 br/min (09/19/22 10:21 AM) 18 br/min (09/19/22 7:00 AM) Blood Pressure [90-140/60-90 mmHg] 158/99mmHg *HI* (09/19/22 2:16 PM) 160/90mmHg *HI* (09/19/22 10:21 AM) 161/93mmHg *HI* (09/19/22 6:20 AM) Mean Arterial Pressure, Cuff [65-140 mmHg] 113 mmHg (09/19/22 10:21 AM) Mean Arterial Pressure Cuff 114 mmHg (09/19/22 2:16 PM) 114 mmHg (09/19/22 6:20 AM) 100 mmHg (09/18/22 6:13 PM) Blood Pressure Location Right arm (09/18/22 2:12 AM) Blood Pressure Method Automatic (09/18/22 2:12 AM) Weight 87.4 kg (09/18/22 6:13 AM) 88.5 kg (09/16/22 9:54 PM) 94.30 kg (09/16/22 6:39 AM) Weight Measured (lbs) 195.109 lb (09/16/22 9:54 PM) Weight Dosing 94.30 kg (09/16/22 6:46 AM) Height 170.8 cm (09/16/22 9:54 PM) 170.180 cm (09/16/22 6:39 AM) Height/Length Measured (inches) 67.24 inch (09/16/22 9:54 PM) Height/Length Dosing 170.180 cm (09/16/22 6:46 AM) BSA Measured 2.05 m2 (09/16/22 9:54 PM) Body Mass Index 30.34 kg/m2 (09/16/22 9:54 PM) 33.000 kg/m2 (09/16/22 6:39 AM) Social History Social History Type Response Tobacco Current everyday tob acco user Tobacco Use:. 1/2 pack since 01/2022 prior was 1 PPD per day. 40 year(s). Total pack years: 40. Sex Female Hospital Discharge Instructions Patient Education 09/19/2022 13:41:13 Epilepsy, [id number] Epilepsy Epilepsy is when a person keeps having seizures. A seizure is a burst of abnormal activity in the brain. This condition can cause problems such as: ??? A change in how you think or behave. ??? Trouble knowing what is happening. ??? Falls, accidents, and injury. ??? Sadness (depression). ??? Poor memory. In rare cases, this condition can be life-threatening. But most people with epilepsy lead normal lives. What are the causes? A head injury or an injury that happens at . ??? A high fever during childhood. ??? A stroke. ??? Bleeding into or around the brain. ??? Some medicines and drugs. ??? Having too little oxygen for a long time. ??? Abnormal brain development. ??? Conditions such as: ??? Brain infection. ??? Brain tumors. ??? Conditions that are passed from parent to child. Many times, the cause is not known. What are the signs or symptoms? Symptoms of a seizure vary from person to person. They may include: Symptoms during a seizure ??? Shaking with fast, jerky movements of muscles (convulsions). ??? Stiffness of the body. ??? Breathing problems. ??? Being mixed up (confused). ??? Staring or being hard to wake up (being unresponsive). ??? Head nodding, eye blinking, eye twitching, or fast eye movements. ??? Drooling, grunting, or making clicking sounds with your mouth. ??? Not being able to control when you pee or poop. Symptoms before a seizure ??? Feeling afraid, worried, or nervous. ??? Feeling like you may vomit. ??? Vertigo. This feels like: ??? You are moving when you are not. ??? Things around you are moving when they are not. ??? D??j?? vu. This is a feeling of having seen or heard something before. ??? Odd tastes or smells. ??? Changes in how you see, such as seeing flashing lights or spots. Symptoms after a seizure ??? Being confused. ??? Being sleepy. ??? A headache. ??? Sore muscles. How is this treated? Treatment can control seizures. It may include: ??? Taking medicines. ??? Having a device put in the chest (vagus nerve stimulator). ??? Brain surgery. ??? Having blood tests often. ??? Eating foods that are low in carbohydrates and high in fat (ketogenic diet). If you are diagnosed with this condition, you should start treatment as soon as you can. Follow these instructions at home: Medicines ??? Take gorp-[id number] and prescription medicines only as told by your doctor. ??? Avoid anything that may keep your medicine from working, such as alcohol. Activity ??? Get enough rest. ??? Follow your doctor's advice about driving, swimming, and doing other things that would be dangerous if you had a seizure. ??? If you live in the [place] ask your local department of motor vehicles about local driving laws for people with epilepsy. Teaching others ??? Teach friends and family what to do if you have a seizure. Tell them to: ??? Help you get down to the ground. ??? Put a pillow under your head and body. ??? Loosen any clothing around your neck. ??? Turn you on your side. ??? Stay with you until you are better. ??? Know whether or not you need emergency care. ??? Also, tell them what not to do if you have a seizure. Tell them: ??? They should not hold you down. ??? They should not put anything in your mouth. General instructions ??? Avoid things that cause you to have seizures. ??? Keep a seizure diary. Write down: ??? What you remember about each seizure. ??? What might have caused the seizure. ??? Keep all follow-up visits. Where to find more information ??? Epilepsy Foundation: epilepsy.com ??? [employer]ile[employer]: ilae.org Contact a doctor if: ??? You have a change in how often or when you have seizures. ??? You get an infection or start to feel sick. ??? You are not able to take your medicine. Get help right away if: ??? A seizure does not stop after 5 minutes. ??? You have more than one seizure in a row, and you do not have enough time between the seizures to feel better. ??? A seizure makes it harder to breathe. ??? A seizure is different from other seizures you have had. ??? A seizure makes you unable to speak or use a part of your body. ??? You did not wake up right away after a seizure. ??? You feel sad, and this does not get better. These symptoms may be an emergency. Get help right away. Call your local emergency services (911 int [place] ??? Do not wait to see if the symptoms will go away. ??? Do not drive yourself to the hospital. Get help right awayif you feel like you may hurt yourself or others, or have thoughts about taking your own life. Go to your nearest emergency room or: ??? Call your local emergency services (911 in the [place] ??? Call the National Suicide Prevention Lifeline at . This is open 24 hours a day. ??? Text the Crisis Text Line at 535891. Summary ??? Epilepsy is when a person keeps having seizures. ??? Seizures can cause many symptoms, such as brief staring and shaking or jerky muscle movements. ??? Treatment can control seizures. Take [id number] and prescription medicines only as told by your doctor. ??? Follow your doctor's advice about driving, swimming, and doing other things that would be dangerous if you had a seizure. ??? Teach friends and family what to do if you have a seizure. This information is not intended to replace advice given to you by your health care provider. Make sure you discuss any questions you have with your health care provider. Document Revised: 03/16/2021 Document Reviewed: 03/16/2021 [employer] Patient Education ?? 2021 [employer]. 09/19/2022 13:40:45 Alcohol Withdrawal Syndrome, Wwmm-kf-Winm Alcohol Withdrawal Syndrome When a person who drinks a lot of alcohol stops drinking, he or she may have unpleasant and serioussymptoms. These symptoms are called alcohol withdrawal syndrome. This condition may be mild or severe. It can be life-threatening. This condition can cause: ??? Shaking that you cannot control (tremor). ??? Sweating. ??? Headache. ??? Feeling fearful, upset, grouchy, or depressed. ??? Trouble sleeping (insomnia). ??? Nightmares. ??? Fast or uneven heartbeats (palpitations). ??? Alcohol cravings. ??? Feeling sick to your stomach (nausea). ??? Throwing up (vomiting). ??? Being bothered by light and sounds. ??? Confusion. ??? Trouble thinking clearly. ??? Not being hungry (loss of appetite). ??? Big changes in mood (mood swings). If you have all of the following symptoms at the same time, get help right away: ??? High blood pressure. ??? Fast heartbeat. ??? Trouble breathing. ??? Seizures. ??? Seeing, hearing, feeling, smelling, or tasting things that are not there (hallucinations). These symptoms are known as delirium tremens (DTs). They must be treated at the hospital right away. Follow these instructions at home: ??? Take wvhs-vzx-tmgurox and prescription medicines only as told by your doctor. This includes vitamins. ??? Do not drink alcohol. ??? Do not drive until your doctor says that this is safe for you. ??? Have someone stay with you or be available in case you need help. This should be someone you trust. This person can help you with your symptoms. He or she can also help you to not drink. ??? Drink enough fluid to keep your pee (urine) pale yellow. ??? Think about joining a support group or a treatment program to help you stop drinking. ??? Keep all follow-up visits as told by your doctor. This is important. Contact a doctor if: ??? Your symptoms get worse. ??? You cannot eat or drink without throwing up. ??? You have a hard time not drinking alcohol. ??? You cannot stop drinking alcohol. Get help right away if: ??? You have fast or uneven heartbeats. ??? You have chest pain. ??? You have trouble breathing. ??? You have a seizure for the first time. ??? You see, hear, feel, smell, or taste something that is not there. ??? You get very confused. Summary ??? When a person who drinks a lot of alcohol stops drinking, he or she may have serious symptoms. This is called alcohol withdrawal syndrome. ??? Delirium tremens (DTs) is a group of life-threatening symptoms. You should get help right away if you have these symptoms. ??? Think about joining an alcohol support group or a treatment program. This information is not intended to replace advice given to you by your health care provider. Make sure you discuss any questions you have with your health care provider. Document Revised: 08/03/2021 Document Reviewed: 08/03/2021 [employer] Patient Education ?? 2021 [employer]. 09/19/2022 13:40:42 Alcohol Use Disorder Alcohol Use Disorder Alcohol use disorder is a condition in which drinking disrupts daily life. People with this condition drink too much alcohol and cannot control their drinking. Alcohol use disorder can cause serious problems with physical health. It can affect the brain, heart, and other internal organs. This disorder can raise the risk for certain cancers and cause problems with mental health, such as depression or anxiety. What are the causes? This condition is caused by drinking too much alcohol over time. Some people with this condition drink to cope with or escape from negative life events. Others drink to relieve pain or symptoms of mental illness. What increases the risk? You are more likely to develop this condition if: ??? You have a family history of alcohol use disorder. ??? Your culture encourages drinking to the point of becoming drunk (intoxication). ??? You had a mood or conduct disorder in childhood. ??? You have been abused. ??? You are an adolescent and you: ??? Have poor performance in school. ??? Have poor supervision or guidance. ??? Act on impulse and like taking risks. What are the signs or symptoms? Symptoms of this condition include: ??? Drinking more than you want to. ??? Trying several times without success to drink less. ??? Spending a lot of time thinking about alcohol, getting alcohol, drinking, or recovering from drinking. ??? Continuing to drink even when it is causing serious problems in your daily life. ??? Drinking when it is dangerous to drink, such as before driving a car. ??? Needing more and more alcohol to get the same effect you want (building up tolerance). ??? Having symptoms of withdrawal when you stop drinking. Withdrawal symptoms may include: ??? Trouble sleeping, leading to tiredness (fatigue). ??? Mood swings of depression and anxiety. ??? Physical symptoms, such as a fast heart rate, rapid breathing, high blood pressure (hypertension), fever, cold sweats, or nausea. ??? Seizures. ??? Severe confusion. ??? Feeling or seeing things that are not there (hallucinations). ??? Shaking movements that you cannot control (tremors). How is this diagnosed? This condition is diagnosed with an assessment. Your health care provider may start by asking threeor four questions about your drinking, or he or she may give you a simple test to take. This helps to get clear information from you. You may also have a physical exam or lab tests. You may be referred to a substance abuse counselor. How is this treated? With education, some people with alcohol use disorder are able to reduce their drinking. Many with this disorder cannot change their drinking behavior on their own and need help from substance use specialists. These specialists are counselors who can help diagnose how severe your disorder is and what type of treatment you need. Treatments may include: ??? Detoxification. Detoxification involves quitting drinking with supervision and direction of health care providers. Your health care provider may prescribe prescription medicines within the first week to help lessen withdrawal symptoms. Alcohol withdrawal can be dangerous and life-threatening. Detoxification may be provided in a home, community, or primary care setting, or in a hospital or subs tance use treatment facility. ??? Counseling. This may involve motivational interviewing (MD), family therapy, or cognitive behavioral therapy (CBT). It is provided by substance use treatment counselors or professional therapists. A counselor can address the things you can do to change your drinking behavior and how to maintainthe changes. Talk therapy aims to: ??? Identify your positive motivations to change. ??? Identify and avoid the things that trigger your drinking. ??? Help you learn how to plan your behavior change. ??? Develop support systems that can help you sustain the change. ??? Medicines. Medicines can help treat this disorder by: ??? Decreasing cravings. ??? Decreasing the positive feeling you have when you drink. ??? Causing an uncomfortable physical reaction when you drink (aversion therapy). ??? [place] help groups such as Alcoholics Anonymous (AA). These groups are led by people who have quit drinking. The groups provide emotional support, advice, and guidance. Some people with this condition benefit from a combination of treatments provided by specialized substance use treatment centers. Follow these instructions at home: Medicines ??? Take quak-vmb-mwgnuyq and prescription medicines only as told by your health care provider. ??? Ask before starting any new medicines, herbs, or supplements. General instructions ??? Ask friends and family members to support your choice to stay sober. ??? Avoid situations where alcohol is served. ??? Create a plan to deal with tempting situations. ??? Attend support groups regularly. ??? Practice hobbies or activities you enjoy. ??? Do not drink and drive. ??? Keep all follow-up visits as told by your health care provider. This is important. How is this prevented? If you drink alcohol: ??? Limit how much you use to: ??? 0???1 drink a day for non women. ??? 0???2 drinks a day for men. ??? Be aware of how much alcohol is in your drink. In the [place] one drink equals one 12 oz bottle of beer (355 mL), one 5 oz glass of wine (148 mL), or one 1?? oz glass of hard liquor (44 mL). ??? If you have a mental health condition, seek treatment. Develop a healthy lifestyle through: ??? Meditation or deep breathing. ??? Exercise. ??? Spending time in nature. ??? Listening to music. ??? Talking with a trusted friend or family member. ??? If you are an adolescent: ??? Do not drink alcohol. Avoid gatherings where you might be tempted. ??? Do not be afraid to say no if someone offers you alcohol. Speak up about why you do not want todrink. Set a positive example for others around you by not drinking. ??? Build relationships with friends who do not drink. Where to find more information ??? Substance Abuse and Mental Health Services Administration: samhsa.gov ??? Alcoholics Anonymous: aa.org Contact a health care provider if: ??? You cannot take your medicines as told. ??? Your symptoms get worse or you experience symptoms of withdrawal when you stop drinking. ??? You start drinking again (relapse) and your symptoms get worse. Get help right away if: ??? You have thoughts about hurting yourself or others. If you ever feel like you may hurt yourself or others, or have thoughts about taking your own life,get help right away. Go to your nearest emergency department or: ??? Call your local emergency services (911 in the [place] ??? Call a suicide crisis helpline, such as the National Suicide Prevention Lifeline at . This is open 24 hours a day in the [place] ??? Text the Crisis Text Line at 542829 (in the [place] Summary ??? Alcohol use disorder is a condition in which drinking disrupts daily life. People with this condition drink too much alcohol and cannot control their drinking. ??? Treatment may include detoxification, counseling, medicines, and support groups. ??? Ask friends and family members to support you. Avoid situations where alcohol is served. ??? Get help right away if you have thoughts about hurting yourself or others. This information is not intended to replace advice given to you by your health care provider. Make sure you discuss any questions you have with your health care provider. Document Revised: 07/31/2020 Document Reviewed: 07/31/2020 [employer] Patient Education ?? 2021 [employer]. Follow Up Care 09/16/2022 06:39:31 With:Homer Merida MD Address: [address] When:1 to 2 weeks Comments:Need referral to neurology and??schedule??follow-up MRI??in 2 to 3 weeks. Discharge instructions * Shelley Cade: PERFORM Event Display: Discharge Instructions Authored Date: [id number] M[place] COBB :1965 Age:57 years Sex:Female Visit Date:09/16/2022 Primary Care Physician: Homer Merida MD Hospital Discharge Instructions We would like to thank you for allowing us to assist you with your healthcare needs. The following includes patient education materials and information regarding your injury/illness. After you leave the hospital, you may get your health information including your test results, physician notes and discharge information by accessing your Patient Portal. Your Next Steps Instructions From Your Care Team Call your primary care provider for: Temperature greater than 101F. Pain that does not go away. Persistent nausea, vomiting or constipation. Shortness of breath, with or without chest discomfort. Weight gain of 3 or more pounds per day. Redness or drainage from incision. Change dressing daily and as needed. Remove dressing before showering. Discharge Orders Discharge Activity Restrictions, No Driving, Until follow up and cleared by neurology Discharge Diet Instruction, Cardiac Diet Discharge Follow Up Instructions, 09/19/22 14:39:00 EST, When following are met: Other (please specify), Follow up with specialist with neurology consultation to be within 3 to 4 weeks, follow-up MRI2 weeks Scheduled Future Appointments Tuesday 10:00 AM EST ?? Tuesday 11:00 AM EST ?? Follow Up Appointments Follow Up with??Homer Merida MD When:??Within 1 to 2 weeks Why: Need referral to neurology and??schedule??follow-up MRI??in 2 to 3 weeks. Where: [place] [address]- The Following Services Have Been Arranged for You Anticipated ADL Needs - None The Following Treatments Have Been Arranged for You Current Home Treatments - Nebulizer treatments, Oxygen therapy Medications What How Much When Why Instructions Next Dose New levETIRAcetam (Keppra 250 mg oral tablet) 2 tab Oral (given by mouth) 2 times a day Duration: 30 Days Refills: 5 Pickup at [facility] Changed albuterol (Albuterol (Eqv-ProAir HFA) 90 mcg/ inh inhalation aerosol) 2 Puffs Inhale (breathe in) Every 3 hours as needed for as needed (USE WITH SPACER) ?? Changed fluticasone nasal (fluticasone 50 mcg/ inh nasal spray) 1 Sprays Nostril-Both Every day as needed for allergy symptoms Changed lactobacillus acidophilus (Acidophilus Probiotic Blend) 1 Capsules Oral (given by mouth) Every day Changed losartan (losartan 50 mg oral tablet) 1 tab Oral (given by mouth) Every day Duration: 90 Days Pickup at [facility] Changed metoprolol (metoprolol succinate 25 mg oral tablet, extended release) 1 tab Oral (given by mouth) Every day Duration: 90 Days Pickup at [facility] Changed naproxen (naproxen 500 mg oral tablet) 1 tab Oral (given by mouth) 2 times a day as needed for as needed for pain As directed ?? Changed nicotine (nicotine 7 mg/ 24 hr transdermal film, extended release) 1 patch(es) Transdermal (apply on the skin) Every day Duration: 14 Days Pickup at [facility] Unchanged aspirin (aspirin 81 mg oral tablet, chewable) 1 tab Chewed Every day Unchanged budesonide-formoterol (Symbicort 80 mcg-4.5 mcg/ inh [...] Oral (given by mouth) Every day Unchanged omeprazole (omeprazole 20 mg oral delayed [...] least 24 hours apart ?? Pharmacy Information [facility]: [address], [place] [id number] [phone] ?? What How Much When Why Comments Stop Taking naloxone (Narcan 4 mg/ 0.1 mL nasal spray) 1 Sprays Nasal (into the nose) Once may repeat every 2 to 3 minutes until patient responds ?? Stop Taking nirmatrelvir-ritonavir (Paxlovid 150 mg-100 mg (300 mg-100 mg Dose) oral tablet) 2 tab Oral (given by mouth) 2 times a day Acute COVID-19 Duration: 5 Days RENAL DOSING (30-60 ml/ min). Take one 150 mg nirmatrelvir tablet with one 100 mg ritonavir tablet at the same time as indicated on the blister cards. Provide Fact Sheet for Patients/ Caregivers ?? Stop Taking Other Prescription (METOPROLOL SUCC ER 25 MG TAB) 0.5 tab Oral (given by mouth) Every day Stop Taking predniSONE (predniSONE 20 mg oral tablet) 2 tab Oral (given by mouth) Every day for 5 days ?? Stop Taking tiotropium (Spiriva HandiHaler 18 mcg inhalation capsule) Your Summary Your Care Team Admitting Physician - Homer Merida MD Attending Physician - Homer Merida MD Consulting Physician - Homer Merida MD, Gregory A MD Primary Care Physician - Homer Merida MD Your Diagnosis Seizure PRES (posterior reversible encephalopathy syndrome) Encephalitis Hypertension Alcoholism Cerebrovascular accident Elevated troponin level Degeneration of lumbar intervertebral disc Mixed anxiety and depressive disorder Chronic pain COVID-19 Chronic obstructive lung disease Problems Ongoing - Any problem that you are currently receiving treatment for. Active or passive immunization Acute cervical sprain [...] abuse disorder Tremor Vitamin D deficiency Historical - Any problem that you are no longer receiving treatment for. Medication monitoring Tests Performed/Pending Acetaminophen Level Alcohol Level Automated Diff CBC w/ Diff CBC w/o Diff Cell Count w/ Diff CSF CK Comprehensive Metabolic Panel Drug Screen Urine [place] Virus (EBV) PCR, Varies [place]?-- Results Pending -- Equine Encephalitis Abs IgG/IgM CSF [place]?-- Results Pending -- Glucose CSF HSV Molecular Detection, PCR [facility] IGG Index, CSF Performable [facility]?-- Results Pending -- Influenza A/B (ID NOW) Magnesium Level Oligoclonal Banding, Serum & CSF [place]?-- Results Pending -- Phosphorus Level Protein CSF Salicylate Level SARS-CoV-2 (COVID-19)/Flu/RSV (GeneXpert) Troponin-I TSH w/ Rflx to Free T4 Urinalysis Microscopic Urinalysis with Micro if Indicated and Culture if Indicated VDRL, CSF [place]?-- Results Pending -- West Nile Virus Ab, IgG & IgM, CSF [place]?-- Results Pending -- You will be contacted within 72 hours with your results. Discharge Vitals Temperature??(Temporal Artery) 97.7 ??F (36.5 ??C) Heart Rate??(Peripheral) 66 Respiratory Rate?? 16 Blood Pressure?? 158/99?? Allergies ampicillin??(Facial swelling, Skin rash) azithromycin??(Itching) codeine??(Itching) sulfa drugs??(Facial swelling, Skin rash) ALPRAZolam SUMAtriptan iodinated radiocontrast dyes penicillins [employer] Epilepsy Epilepsy is when a person keeps having seizures. A seizure is a burst of abnormal activity in the brain. This condition can cause problems such as: ? A change in how you think or behave. ? Trouble knowing what is happening. ? Falls, accidents, and injury. ? Sadness (depression). ? Poor memory. In rare cases, this condition can be life-threatening. But most people with epilepsy lead normal lives. What are the causes? A head injury or an injury that happens at . ? A high fever during childhood. ? A stroke. ? Bleeding into or around the brain. ? Some medicines and drugs. ? Having too little oxygen for a long time. ? Abnormal brain development. ? Conditions such as: ? Brain infection. ? Brain tumors. ? Conditions that are passed from parent to child. Many times, the cause is not known. What are the signs or symptoms? Symptoms of a seizure vary from person to person. They may include: Symptoms during a seizure ? Shaking with fast, jerky movements of muscles (convulsions). ? Stiffness of the body. ? Breathing problems. ? Being mixed up (confused). ? Staring or being hard to wake up (being unresponsive). ? Head nodding, eye blinking, eye twitching, or fast eye movements. ? Drooling, grunting, or making clicking sounds with your mouth. ? Not being able to control when you pee or poop. Symptoms before a seizure ? Feeling afraid, worried, or nervous. ? Feeling like you may vomit. ? Vertigo. This feels like: ? You are moving when you are not. ? Things around you are moving when they are not. ? D??j?? vu. This is a feeling of having seen or heard something before. ? Odd tastes or smells. ? Changes in how you see, such as seeing flashing lights or spots. Symptoms after a seizure ? Being confused. ? Being sleepy. ? A headache. ? Sore muscles. How is this treated? Treatment can control seizures. It may include: ? Taking medicines. ? Having a device put in the chest (vagus nerve stimulator). ? Brain surgery. ? Having blood tests often. ? Eating foods that are low in carbohydrates and high in fat (ketogenic diet). If you are diagnosed with this condition, you should start treatment as soon as you can. Follow these instructions at home: Medicines ? Take pfne-woo-jqpmlsw and prescription medicines only as told by your doctor. ? Avoid anything that may keep your medicine from working, such as alcohol. Activity ? Get enough rest. ? Follow your doctor's advice about driving, swimming, and doing other things that would be dangerousif you had a seizure. ? If you live in the [place] ask your local department of motor vehicles about local driving laws for people with epilepsy. Teaching others ? Teach friends and family what to do if you have a seizure. Tell them to: ? Help you get down to the ground. ? Put a pillow under your head and body. ? Loosen any clothing around your neck. ? Turn you on your side. ? Stay with you until you are better. ? Know whether or not you need emergency care. ? Also, tell them what not to do if you have a seizure. Tell them: ? They should not hold you down. ? They should not put anything in your mouth. General instructions ? Avoid things that cause you to have seizures. ? Keep a seizure diary. Write down: ? What you remember about each seizure. ? What might have caused the seizure. ? Keep all follow-up visits. Where to find more information ? Epilepsy Foundation: [employer] ? International League Against Epilepsy: ilae.org Contact a doctor if: ? You have a change in how often or when you have seizures. ? You get an infection or start to feel sick. ? You are not able to take your medicine. Get help right away if: ? A seizure does not stop after 5 minutes. ? You have more than one seizure in a row, and you do not have enough time between the seizures to feel better. ? A seizure makes it harder to breathe. ? A seizure is different from other seizures you have had. ? A seizure makes you unable to speak or use a part of your body. ? You did not wake up right away after a seizure. ? You feel sad, and this does not get better. These symptoms may be an emergency. Get help right away. Call your local emergency services ([facility] ? Do not wait to see if the symptoms will go away. ? Do not drive yourself to the hospital. Get help right awayif you feel like you may hurt yourself or others, or have thoughts about taking your own life. Go to your nearest emergency room or: ? Call your local emergency services (911 in the [place] ? Call the National Suicide Prevention Lifeline at . This is open 24 hours a day. ? Text the Crisis Text Line at 070542. Summary ? Epilepsy is when a person keeps having seizures. ? Seizures can cause many symptoms, such as brief staring and shaking or jerky muscle movements. ? Treatment can control seizures. Take dtdh-upl-ivaodnk and prescription medicines only as told by your doctor. ? Follow your doctor's advice about driving, swimming, and doing other things that would be dangerousif you had a seizure. ? Teach friends and family what to do if you have a seizure. This information is not intended to replace advice given to you by your health care provider. Make sure you discuss any questions you have with your health care provider. Document Revised: 03/16/2021 Document Reviewed: 03/16/2021 [employer] Patient Education ?? 2021 [employer] Alcohol Withdrawal Syndrome When a person who drinks a lot of alcohol stops drinking, he or she may have unpleasant and serioussymptoms. These symptoms are called alcohol withdrawal syndrome. This condition may be mild or severe. It can be life-threatening. This condition can cause: ? Shaking that you cannot control (tremor). ? Sweating. ? Headache. ? Feeling fearful, upset, grouchy, or depressed. ? Trouble sleeping (insomnia). ? Nightmares. ? Fast or uneven heartbeats (palpitations). ? Alcohol cravings. ? Feeling sick to your stomach (nausea). ? Throwing up (vomiting). ? Being bothered by light and sounds. ? Confusion. ? Trouble thinking clearly. ? Not being hungry (loss of appetite). ? Big changes in mood (mood swings). If you have all of the following symptoms at the same time, get help right away: ? High blood pressure. ? Fast heartbeat. ? Trouble breathing. ? Seizures. ? Seeing, hearing, feeling, smelling, or tasting things that are not there (hallucinations). These symptoms are known as delirium tremens (DTs). They must be treated at the hospital right away. Follow these instructions at home: ? Take cosz-fbx-zrfgdiu and prescription medicines only as told by your doctor. This includes vitamins. ? Do not drink alcohol. ? Do not drive until your doctor says that this is safe for you. ? Have someone stay with you or be available in case you need help. This should be someone you trust.This person can help you with your symptoms. He or she can also help you to not drink. ? Drink enough fluid to keep your pee (urine) pale yellow. ? Think about joining a support group or a treatment program to help you stop drinking. ? Keep all follow-up visits as told by your doctor. This is important. Contact a doctor if: ? Your symptoms get worse. ? You cannot eat or drink without throwing up. ? You have a hard time not drinking alcohol. ? You cannot stop drinking alcohol. Get help right away if: ? You have fast or uneven heartbeats. ? You have chest pain. ? You have trouble breathing. ? You have a seizure for the first time. ? You see, hear, feel, smell, or taste something that is not there. ? You get very confused. Summary ? When a person who drinks a lot of alcohol stops drinking, he or she may have serious symptoms. Thisis called alcohol withdrawal syndrome. ? Delirium tremens (DTs) is a group of life-threatening symptoms. You should get help right away if you have these symptoms. ? Think about joining an alcohol support group or a treatment program. This information is not intended to replace advice given to you by your health care provider. Make sure you discuss any questions you have with your health care provider. Document Revised: 08/03/2021 Document Reviewed: 08/03/2021 [employer] Patient Education ?? 2021 [employer] Alcohol Use Disorder Alcohol use disorder is a condition in which drinking disrupts daily life. People with this condition drink too much alcohol and cannot control their drinking. Alcohol use disorder can cause serious problems with physical health. It can affect the brain, heart, and other internal organs. This disorder can raise the risk for certain cancers and cause problems with mental health, such as depression or anxiety. What are the causes? This condition is caused by drinking too much alcohol over time. Some people with this condition drink to cope with or escape from negative life events. Others drink to relieve pain or symptoms of mental illness. What increases the risk? You are more likely to develop this condition if: ? You have a family history of alcohol use disorder. ? Your culture encourages drinking to the point of becoming drunk (intoxication). ? You had a mood or conduct disorder in childhood. ? You have been abused. ? You are an adolescent and you: ? Have poor performance in school. ? Have poor supervision or guidance. ? Act on impulse and like taking risks. What are the signs or symptoms? Symptoms of this condition include: ? Drinking more than you want to. ? Trying several times without success to drink less. ? Spending a lot of time thinking about alcohol, getting alcohol, drinking, or recovering from drinking. ? Continuing to drink even when it is causing serious problems in your daily life. ? Drinking when it is dangerous to drink, such as before driving a car. ? Needing more and more alcohol to get the same effect you want (building up tolerance). ? Having symptoms of withdrawal when you stop drinking. Withdrawal symptoms may include: ? Trouble sleeping, leading to tiredness (fatigue). ? Mood swings of depression and anxiety. ? Physical symptoms, such as a fast heart rate, rapid breathing, high blood pressure (hypertension), fever, cold sweats, or nausea. ? Seizures. ? Severe confusion. ? Feeling or seeing things that are not there (hallucinations). ? Shaking movements that you cannot control (tremors). How is this diagnosed? This condition is diagnosed with an assessment. Your health care provider may start by asking threeor four questions about your drinking, or he or she may give you a simple test to take. This helps to get clear information from you. You may also have a physical exam or lab tests. You may be referred to a substance abuse counselor. How is this treated? With education, some people with alcohol use disorder are able to reduce their drinking. Many with this disorder cannot change their drinking behavior on their own and need help from substance use specialists. These specialists are counselors who can help diagnose how severe your disorder is and what type of treatment you need. Treatments may include: ? Detoxification. Detoxification involves quitting drinking with supervision and direction of health care providers. Your health care provider may prescribe prescription medicines within the first weekto help lessen withdrawal symptoms. Alcohol withdrawal can be dangerous and life-threatening. Detoxification may be provided in a home, community, or primary care setting, or in a hospital or substance use treatment facility. ? Counseling. This may involve motivational interviewing (MD), family therapy, or cognitive behavioral therapy (CBT). It is provided by substance use treatment counselors or professional therapists. A counselor can address the things you can do to change your drinking behavior and how to maintain thechanges. Talk therapy aims to: ? Identify your positive motivations to change. ? Identify and avoid the things that trigger your drinking. ? Help you learn how to plan your behavior change. ? Develop support systems that can help you sustain the change. ? Medicines. Medicines can help treat this disorder by: ? Decreasing cravings. ? Decreasing the positive feeling you have when you drink. ? Causing an uncomfortable physical reaction when you drink (aversion therapy). ? [place] help groups such as Alcoholics Anonymous (AA). These groups are led by people who have quit drinking. The groups provide emotional support, advice, and guidance. Some people with this condition benefit from a combination of treatments provided by specialized substance use treatment centers. Follow these instructions at home: Medicines ? Take xozn-rgn-fppzwkl and prescription medicines only as told by your health care provider. ? Ask before starting any new medicines, herbs, or supplements. General instructions ? Ask friends and family members to support your choice to stay sober. ? Avoid situations where alcohol is served. ? Create a plan to deal with tempting situations. ? Attend support groups regularly. ? Practice hobbies or activities you enjoy. ? Do not drink and drive. ? Keep all follow-up visits as told by your health care provider. This is important. How is this prevented? If you drink alcohol: ? Limit how much you use to: ? 0???1 drink a day for non women. ? 0???2 drinks a day for men. ? Be aware of how much alcohol is in your drink. In the [place] one drink equals one 12 oz bottle of beer (355 mL), one 5 oz glass of wine (148 mL), or one 1?? oz glass of hard liquor (44 mL). ? If you have a mental health condition, seek treatment. Develop a healthy lifestyle through: ? Meditation or deep breathing. ? Exercise. ? Spending time in nature. ? Listening to music. ? Talking with a trusted friend or family member. ? If you are an adolescent: ? Do not drink alcohol. Avoid gatherings where you might be tempted. ? Do not be afraid to say no if someone offers you alcohol. Speak up about why you do not want to drink. Set a positive example for others around you by not drinking. ? Build relationships with friends who do not drink. Where to find more information ? Substance Abuse and Mental Health Services Administration: [facility]gov ? Alcoholics Anonymous: aa.org Contact a health care provider if: ? You cannot take your medicines as told. ? Your symptoms get worse or you experience symptoms of withdrawal when you stop drinking. ? You start drinking again (relapse) and your symptoms get worse. Get help right away if: ? You have thoughts about hurting yourself or others. If you ever feel like you may hurt yourself or others, or have thoughts about taking your own life,get help right away. Go to your nearest emergency department or: ? Call your local emergency services (911 in the [place] ? Call a suicide crisis helpline, such as the National Suicide Prevention Lifeline at .This is open 24 hours a day in the [place] ? Text the Crisis Text Line at 431714 (in the [place] Summary ? Alcohol use disorder is a condition in which drinking disrupts daily life. People with this condition drink too much alcohol and cannot control their drinking. ? Treatment may include detoxification, counseling, medicines, and support groups. ? Ask friends and family members to support you. Avoid situations where alcohol is served. ? Get help right away if you have thoughts about hurting yourself or others. This information is not intended to replace advice given to you by your health care provider. Make sure you discuss any questions you have with your health care provider. Document Revised: 07/31/2020 Document Reviewed: 07/31/2020 [employer] Patient Education ?? 2021 [employer] Patient Name:MADISON COBB I have received this information and my questions have been answered. Patient/Intermission Coordinator Name: Patient/Intermission Coordinator Signature: Relationship to Patient: Witness Name/Signature: Date: Electronically Signed on: 09/19/2022 14:48 ESTSigned by:KADEN Speech-language pathology Progress note * Blessing Marrero: PERFORM Event Display: Speech Therapy Progress Note Authored Date: [id number] evaluation. However, pt's chart does not indicate speech or swallowing issues. Nsg denies observing speech or swallowing concerns. Pt stated no concerns with speech or swallowing at this time. Order to be discharged, as [employer] tx is not appropriate. Nsg encouraged to contact [employer] [facility] d epartment if new concerns arise. Electronically Signed on 09/17/22 10:52 AM Blessing Marrero Occupational therapy Progress note * Chanel Carroll: MODIFY, MODIFY, PERFORM Event Display: Occupational Therapy Progress Note Authored Date: [id number] Patient ID and date of checked: Confirmed *Current Level of Care: In-Patient *Admitting Diagnosis: COVID, seizure. *Therapy Diagnosis: Increased need for assistance with personal care. Pertinent Medical History: Patient is a 57-year-old female who was admitted to this facility at inpatient level care on 09/16 after experiencing a seizure while she was at home alone. She called EMS and experienced a second seizure while they were present. Patient is COVID +. Patient reports experiencing seizures as a child but has not had one since. Past medical history includes CVA, Hep C, COPD, degenerative disc disease, hypertension. *Subjective: Patient in bed, alert, upon OT and PT arrival. Patient states I can move, oh I bet your gonna make me prove it Patient left in bed with bed alarm on and all needs in place, visiting with her brother, at therapist departure. PT present at OT evaluation. Hand Dominance: Right *Barriers to Learning: ??x None Communication Cultural Education level Hearing Language Vision Physical Cognitive Motivational Emotional Acute medical condition Precautions: Standard precautions MRSA/VRE Contact precautions Droplet precautions Airborne precautions ??x Covid precautions Total hip replacement Total knee replacement Total shoulder replacement Fall risk *Previous Level of Function: Patient lives in a two story home and has guardianship of her two grandchildren ages 10yo and 12yo, no other adult lives in the home. She is on disability for her back and does not work. She reports independence with all ADLs and cares for her grandchildren manager multimedia. She does drive. Patient does not use AD or AE and reports no need. 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 Prior Home Setup: ?Living Situation/Level of Supervision: Lives with young grandchildren, no supervision. ?Living Environment: Home. ?Stairs/Ramps: 3 steps to enter with 1 railing, full set to upstairs where bedrooms are located with 1 railing. ?Home Equipment: none. *Current Level of Function: Pain: Chronic back pain. Vision/Hearing: Wears glasses, hearing wfl Cognition: ? Alertness level: Alert ? Attention: Intact ? Communication: expresses needs verbally ? Follows commands: yes ? Insight into deficits: good ? Memory?short term: intact ? Memory?long term care administrator: intact ? Orientation: O/A x4 ? Safety awareness: good Upper Extremity Passive/Active Range of Motion: B UE P/AROM wfl Manual Muscle Testing: Not formally tested but appears wfl Proprioception/Sensation: patient denies sensory changes Edema: None observed or reported Coordination: ?Fine Motor: intact ?Gross Motor: intact Tone: n/a ADLs: Activity Assistance Comments Bathing Upper Body Bathing Lower Body Dressing Upper Body Dressing Lower Body ??SB (A) ??Patient dons hospital pants in standing and seated EOB with good pace and no LOB Patient dons nonslip socks while seated in bed, legs crossed to reach. Eating Shaving Combing Hair Brushing Teeth Toileting IADLs: Not assessed this date. Activity Assistance Comments Light Meal Prep Phone Call Light Housekeeping Tasks Money Management Medication Management Bed Mobility: Observed independence with all bed mobility this date. Activity Assistance Comments Rolling ??I Scooting/Repositioning ??I Supine to Sit ??I Sit to Supine ??I Transfers: Activity Assistive Device Assistance Comments Sit to Stand ??None ??SB (A) ??due to patients report of feeling weak Stand to Sit ??None ??SB (A) Bed to Chair ??None ??SB (A) Chair to Bed Shower Transfer Toilet Transfer ??Patient denied need Functional Ambulation During ADLs: Assistance Assistive Device Distance??(ft) Comments ??SB (A) ??none ??~50 ft ??Gait belt for safety, no LOB, occasional furniture walking, reports of feeling unsteady, visuallywinded after ambulation. Wheelchair Mobility: n/a Assistance Distance Comments Balance: ?Static Sitting: good ?Dynamic Sitting: good ?Static Standing: good ?Dynamic Standing: fair Posture: WNL Orthosis: n/a *Standardized Testing: Standardized Test Score Comments AM-PAC Ian Index Patricia Balance Score PASS SLUMS Short Blessed Test Jean Cognitive Assessment Modified Ian Index ??96/100 Score indicates slight dependence with ADLs. Motor Assessment Scale Quick DASH *Patient Education: Patient introduced to this therapist and provided brief scope of skilled OT in acute care. *Occupational Therapy Assessment: Patient is a 57-year-old female who was admitted to this facilityat inpatient level care on 09/16 after experiencing a seizure while she was at home alone. She called EMS and experienced a second seizure while they were present. Patient is COVID +. Patient reportsexperiencing seizures as a child but has not had one since. Patient reports independence with all ADLs and IADLs and is the sole caregiver of her two grandchildren. Patient demonstrates (I) with all transfers without an assistive device, good static and dynamic sitting balance and good static standing balance. She scored a 96/100 on the Modified Ian Index, indicating a slight dependence with ADLs and demonstrated performance of LB dressing with only standby assist. Patient does present withfair dynamic standing balance during functional ambulation and ADL performance, and was out of breath and fatigued after walking for less than 5 minutes. Patient would be safe to return home after discharge from this facility, however, OT will follow patient during admission to maximize safety and independence during ADL performance. *Rehab Potential: Good?to reach the established goals *Short Term Goals?time frame: Deferred *Kitchen Supervisor Goals?time frame: 1 week 1. Patient will demonstrate 2 energy conservation techniques during LB dressing with (S). 2. Patient will verbalize 3 safety actions to take when suspecting a seizure will occur. *Patient Goals: To go home soon OT Plan of Care: *Treatment Duration: 1 week *Treatment Frequency: 5x/week *Treatment Intensity: 30 minutes *Planned Treatment Interventions: Home assessment and modification education Manual therapy Neuromuscular re-education ??x Pain management education ??x Patient/family education Self-care/ Home management Orthoses/prosthesis fabrication and training ??x Therapeutic activities Therapeutic exercises Cognitive skills training Wheelchair management training *Discharge Plan: discharge from facility Discharge Recommendations: ?Home equipment needs: None ?Post discharge Rehab needs:??Home _ ?Supervision needs: requires no supervision ?Discussed plan of care with: PT, Patient. *Procedure Documentation: CPT 39541: Low Complexity OT Evaluation:??20 minutes Occupational Therapy Low Complexity Evaluation performed. History involves brief review. Examination of performance deficit(s) includes 1-3 elements. Clinical decision making includes limited?? treatment option considerations. present?comorbidities. Task modifications/assistance are not necessary. *Total Time: 20 minutes *Time In: 8:45 *Time Out: 9:05 Electronically Signed on 09/17/22 01:07 PM Chanel Carroll Anesthesiology Progress note * Sergo Mercer MD: PERFORM Event Display: Anesthesiology Progress Note Authored Date: [id number] MADISON COBB :1965 Age:57 years Sex:Female Visit Date:09/16/2022 Primary Care Physician: Homer Merida MD Diagnostic lumbar puncture Images 57-year-old white female with seizures.?? Meningitis to be ruled out??6 benefits and limitations oflumbar puncture were explained to the patient including bleeding??paralysis??nerve injury??and headaches??she understood this and wished to proceed with the lumbar puncture??was placed in sitting position sterile prep and drape of her back in usual fashion??4 5 interspace was palpated skin and deeper tissues were anesthetized with 1% lidocaine.?? A 22-gauge spinal needle was advanced??x2 attempt??experienced??paresthesia in the right leg which was??transient??deeper tissues were then anesthetized at the 3 4 level??and the 22-gauge spinal needle was advanced without difficulty with 1 pass to the intrathecal space??4 vials of CSF were collected??the needle was removed pressure held for few moments??tolerated the procedure well??to the procedure her Lovenox was held for approximately 20 hours??will be started 6 hours after the procedure.?? Was left in the care of the hospitalist Electronically Signed on 09/17/22 05:12 PM Sergo Mercer MD EKG study * Event Display: Telemetry Strips Please click on link to view image. * Event Display: Telemetry Strips Please click on link to view image. * Event Display: Telemetry Strips Please click on link to view image. * Sharlene Farrell: PERFORM Event Display: Electrocardiogram EKG Authored Date: Neurology Consult note * Josie Aldana: PERFORM Event Display: Neurology Consultation Authored Date: Pharmacology Progress note * Justina Shaw PharmD: PERFORM Event Display: Pharmacy Progress Note Authored Date: Pharmacy Progress Note med rec updated 09/17/22 with analesa at pack [facility]. Several medications (mainly inhalers) have not been filled for several months Mirela BRENNAN Electronically Signed on 09/17/22 09:07 AM Justina Shaw PharmD Respiratory therapy Hospital Progress note * Larisa Santos: PERFORM Event Display: Respiratory Therapy Progress Note Authored Date: ??MADISON COBB 57 Years MEASURED Body Mass Index: 30.34 kg/m2 (09/16/22 21:54:00) BSA Measured: 2.05 m2 (09/16/22 21:54:00) Height: 170.8 cm (09/16/22 21:54:00) Weight: 87.4 kg (09/18/22 06:13:00) DOSING Height/Length Dosin.18 cm (09/16/22 06:46:02) Weight Dosin.3 kg (09/16/22 06:46:02) Respiratory Shift Summary Breath Sounds: Clear Shift Treatments: Pt refused Symbicort Shift Events: Pt very drowsy but awoken and is a/o. Pt refusing Symbicort despite education on importance of medication and usage. Pt is in NAD, on 3 L/min O2 which is her home O2 use @ night. Respiratory Protocol??Aerosol Therapy Assessment and Scoring Home Medication Routine: Lung History (2) Current smoker greater than 1 pack/day with greater than 15 pack year history and/or diagnosed lung disease Breath Sounds (0) Clear in all lawrence Respiratory Rate (0) Less than or equal to 18 Modified Jackelin Scale or Observed Dyspnea (0) None Oxygen Therapy (0) Room air, at baseline home O2, post-op, or CHF Home Respiratory Medications (2) Rescue MDI or Neb greater than 1 time per week and/or controller medication(s) daily Inhaler Use Assessment ? Clinically Stable? Yes? Can take a slow deep breath on command? Yes? Can perform a 3 second breath hold? Yes Respiratory total Score: 4 Respiratory Guidelines 3-4 pts - Q6 PRN for SOB Electronically Signed on 09/18/22 09:19 PM Larisa Santos Physician Emergency department Note * Layne Daniel MD: PERFORM Event Display: ED Note Physician Authored Date: [id number] MADISON COBB :1965 Age:57 years Sex:Female Visit Date:09/16/2022 Primary Care Physician: Homer Merida MD Basic Information Time Seen: Paulina Bahena MD / 09/16/2022 06:43 Chief Complaint Pt called EMS after having a seizure. During arrival, ems reports a 45 second seizure and patient c/o severe headache. Per EMS, patient covid + History Of Present Illness: Patient was signed out to me at 7 AM this morning. She is a 57-year-old lady with a chart listed history of??amnesia,??cerebral hemorrhage, CVA, chronic hep C, COPD, constipation,??degeneration of cervical??and lumbar intervertebral discs, hypertension, fatigue,??GERD,??memory impairment, anxiety and depression, muscle pain, nicotine dependence,??migraine, seizures,??tremor,??who presented to the ED via EMS reportedly after having 3 seizures, in the setting of Covid 19 illness. Pt has been with symptoms of Covid 19 since 09/10 and she started taking Paxlovid on 09/13. Pt seen by my colleague and found to be post ictal, she is s/p 0.5mg of Ativan iv and is receiving IV fluids and Keppra. Pt with listed h/o seizures in the chart, unclear when her last one was prior to today's. I do not see any anti seizure medications in her list of medications. Upon reevaluation??the patient still appears very sleepy.?? She tells me she had 2 seizures??and she is not on any medications because??she had a seizure about 10 years ago??and has not had any sincethen.?? Patient still quite sleepy, will reassess in a little bit. Physical Exam Vitals & Measurements T:??38?C ??(Temporal Artery)?? HR:??77??(Monitored)?? RR:??15?? BP:??138/97?? SpO2:??95%?? HT:??170.180??cm?? WT:??94.30??kg?? BMI:??33.000?? O2 Flow Rate:??2?? O2 Therapy:??Room air?? Procedure No Qualifying Data Reexamination/Reevaluation Labs all resulted. Patient reassessed??around 1 PM. Her MS is slightly improved. She is requesting oxycodone. Says she takes 15mg 4 times a day. ??She denies taking any more or less??opiates than??that and she denies taking any benzodiazepines or stopping them recently. ??She tells me she normally drinks about 3 beers every night but in the past week she??has been drinking only 1??because of COVID symptoms. ??Patient says she had a positive??COVID test at home??and has been on Paxlovid. ??She tells me she had 2 seizures??overnight, started with shaking of her right side and associated with urinary incontinence. She says last time she had a seizure 10 years ago she was out for 4 days. Pt says she still doesn't feel back to normal. ?? Paxlovid with no listed Sz as side effect. This could be alcohol withdrawal Sz but pt has no tachycardia and no hemodynamic instability. Benzo withdrawal unlikely if indeed pt on 15mg oxycodone qid and has not stopped it as she tells me. ?? Tele Neurology consult obtained. DDx includes Sukhdev's paralysis vs stroke vs alcohol withdrawal. Recommended CT head, and admission for continued post ictal state, MRI, starting pt on Keppra 500mgbid CT was negative for acute findings. Admission discussed with Dr Merida from the hospitalist service at 1600. He knows the pt well as her primary PCP. Assessment/Plan 1.??Seizure??F10.132 2.??Cerebrovascular accident??G46.0 3.??Degeneration of lumbar intervertebral disc??M51.36 4.??Mixed anxiety and depressive disorder??F41.8 5.??Chronic pain??G89.29 6.??COVID-19??U07.1 Orders: Decision to Admit, 09/16/22 16:30:00 EST, Medical Unit Medication Reconciliation Unchanged albuterol (Albuterol (Eqv-ProAir HFA) 90 mcg/inh inhalation aerosol)2 Puffs Inhale (breathe in) every 3 hours as needed. (USE WITH SPACER). ?? albuterol (albuterol 1.25 mg/3 mL (0.042%) inhalation solution)Nebulized inhalation (inhale using nebulizer) 3 times a day. ?? aspirin (aspirin 81 mg oral tablet, chewable)1 tab Chewed every day. ?? budesonide-formoterol (Symbicort 80 mcg-4.5 mcg/inh inhalation [...] RESP PAP / [facility] Supplies (Send to [place])Send to [place] [facility]. Refills: 0. ?? FLUoxetine (FLUoxetine 20 mg oral capsule)3 Capsules Oral (given by mouth) every day. Refills: 3. ?? fluticasone nasal (fluticasone 50 mcg/inh nasal spray)1 Sprays Nostril-Both every day. ?? lactobacillus acidophilus (Acidophilus Probiotic Blend)Oral (given by mouth) every day. ?? losartan (losartan 25 mg oral tablet)1 tab Oral (given by mouth) every day. Refills: 3. ?? metoprolol (Metoprolol Succinate ER 25 mg oral tablet, extended release)0.5 tab Oral (given by mouth) every day. ?? naloxone (Narcan 4 mg/0.1 mL nasal spray)1 Sprays Nasal (into the nose) once. may repeat every 2 to3 minutes until patient responds. ?? naproxen (naproxen 500 mg oral tablet)1 tab Oral (given by mouth) 2 times a day. As directed. ?? nicotine (nicotine 7 mg/24 hr transdermal film, extended release)1 patch(es) Transdermal (apply on the skin) every day. ?? nirmatrelvir-ritonavir (Paxlovid 150 mg-100 mg (300 mg-100 mg Dose) oral tablet)2 tab Oral (given by mouth) 2 times a day for 5 Days. RENAL DOSING (30-60 ml/min). Take one 150 mg nirmatrelvir tablet with one 100 mg ritonavir tablet at the same time as indicated on the blister cards. Provide Fact Sheet for Patients/Caregivers. Refills: 0. ?? omeprazole (omeprazole 20 mg oral delayed release capsule)1 Capsules Oral (given by mouth) every day. Refills: 3. ?? Other Prescription (METOPROLOL SUCC ER 25 MG TAB)0.5 tab Oral (given by mouth) every day. [...] severe for 28 Days. Refills: 0. ?? predniSONE (predniSONE 20 mg oral tablet)2 tab Oral (given by mouth) every day. for 5 days. ?? pregabalin (Lyrica 300 mg oral capsule)1 Capsules Oral (given by mouth) every day for 28 Days. Refills: 1. ?? rosuvastatin (rosuvastatin 10 mg oral tablet)1 tab Oral (given by mouth) every day. Refills: 3. ?? senna (Senna 8.6 mg oral tablet)TAKE TWO TABLETS BY MOUTH EVERY DAY NEEDED FOR 14 DAYS. Refills:3. ?? tiotropium (Spiriva HandiHaler 18 mcg inhalation capsule) ?? traZODone (traZODone 300 mg oral tablet)TAKE ONE TABLET BY MOUTH AT BEDTIME. Refills: 0. ?? umeclidinium (Incruse Ellipta 62.5 mcg/inh inhalation powder)1 Each Inhale (breathe in) every 24 hours for 30 Days. doses should be taken at least 24 hours apart. Refills: 11. Problem List/Past Medical History Ongoing Active or passive immunization Acute cervical sprain Acute thoracic back pain Allergic conjunctivitis Allergic rhinitis Amnesia Arthritis Cataract Cerebral hemorrhage Cerebrovascular accident Chronic hepatitis C Chronic obstructive lung disease Chronic pain Constipation Cyst of face Degeneration of cervical intervertebral disc Degeneration of lumbar intervertebral disc Essential hypertension Fatigue Focal dystonia Gastroesophageal reflux disease Heart disease Hyperlipidemia Hypoxemia Hypoxia Lower urinary tract symptoms Medication monitoring encounter Memory impairment Mixed anxiety and depressive disorder Muscle pain Nicotine dependence Pain in right hip joint Pain in thoracic spine Pain of left ankle joint Pain of left wrist Pneumonia Polyp of gallbladder Postmenopausal osteoporosis Refractory migraine with aura Seizure Sleep disorder Tobacco abuse disorder Tremor Vitamin D deficiency Historical Medication monitoring Procedure/Surgical History ???Colonoscopy (07/06/2021)???EGD - Esophagogastroduodenoscopy (07/06/2021)???Laparoscopic cholecystectomy (05/25/2021)???Placement of stent in coronary artery x2 (07/29/2017)???Colonoscopy (03/18/2010)???EGD - Esophagogastroduodenoscopy (03/18/2010)???Cervical spinal fusion (09/26/2007)???Procedure; plates in neck (2003)???Remove lamina/facets lumbar (09/26/2003)???Procedure on left ankle; 2 screws (09/26/1988)???Appendectomy???Procedure on right shoulder???Total hysterectomy Medication Administration Given 0.9% NaCl bolus, 1 L, IV Bolus acetaminophen, 1000 mg, Oral Ativan, 0.5 mg, IV Push Keppra, IV Piggyback oxyCODONE 15 mg oral tablet, 15 mg, Oral Allergies ampicillin??(Facial swelling, Skin rash) azithromycin??(Itching) codeine??(Itching) [...] and Differential?? LATEST RESULTS?? HISTORICAL RESULTS?? WBC?? 09/16/22 06:48?? 13.1 ??High?? 03/06/22?? 11.6 ??High?? RBC?? 09/16/22 06:48?? 5.3?? 03/06/22?? 4.7?? Hgb?? 09/16/22 06:48?? 16.8 ??High?? 03/06/22?? 15.2?? Hct?? 09/16/22 06:48?? 50.5 ??High?? 03/06/22?? 44.6?? MCV?? 09/16/22 06:48?? 94.6?? 03/06/22?? 94.3?? MCH?? 09/16/22 06:48?? 31.5?? 03/06/22?? 32.1 ??High?? MCHC?? 09/16/22 06:48?? 33.3?? 03/06/22?? 34.1?? RDW-CV?? 09/16/22 06:48?? 13.1?? 03/06/22?? 12.6?? Platelets?? 09/16/22 06:48?? 276?? 03/06/22?? 225?? Neutro Auto?? 09/16/22 06:48?? 79.9 ??High?? 03/06/22?? 64.8?? Lymph Auto?? 09/16/22 06:48?? 14.6 ??Low?? 03/06/22?? 20.6?? [place] Auto?? 09/16/22 06:48?? 4.5?? 03/06/22?? 11.9?? Eos, Auto?? 09/16/22 06:48?? 0.1 ??Low?? 03/06/22?? 2.0?? Basophil Auto?? 09/16/22 06:48?? 0.4?? 03/06/22?? 0.4?? Imm Gran Auto?? 09/16/22 06:48?? 0.5?? 03/06/22?? 0.3?? Neutro Absolute?? 09/16/22 06:48?? 10.5?? 03/06/22?? 7.5? Routine Chemistry?? LATEST RESULTS?? HISTORICAL RESULTS?? Sodium Level?? 09/16/22 06:48?? 137?? 03/06/22?? 135 ??Low?? Potassium Level?? 09/16/22 06:48?? 3.7?? 03/06/22?? 4.3?? Chloride Level?? 09/16/22 06:48?? 102?? 03/06/22?? 100?? CO2?? 09/16/22 06:48?? 20 ??Low?? 03/06/22?? 31?? Alk Phos?? 09/16/22 06:48?? 99?? 03/06/22?? 89?? AST?? 09/16/22 06:48?? 25?? 03/06/22?? 20?? ALT?? 09/16/22 06:48?? 26?? 03/06/22?? 33?? BUN?? 09/16/22 06:48?? 12?? 03/06/22?? 17?? Glucose Level?? 09/16/22 06:48?? 193 ??High?? 03/06/22?? 106?? Creatinine Level?? 09/16/22 06:48?? 1.44 ??High?? 03/06/22?? 1.13 ??High?? eGFR AA?? 09/16/22 06:48?? 42 ??Low?? 03/06/22?? 56 ??Low?? eGFR Non-AA?? 09/16/22 06:48?? 42 ??Low?? 03/06/22?? 56 ??Low?? Calcium Level?? 09/16/22 06:48?? 9.3?? 03/06/22?? 9.1?? Protein Total?? 09/16/22 06:48?? 8.6 ??High?? 03/06/22?? 7.1?? Albumin Level?? 09/16/22 06:48?? 3.9?? 03/06/22?? 3.3 ??Low?? Bilirubin Total?? 09/16/22 06:48?? 0.6?? 03/06/22?? 1.1 ??High? Serum Toxicology?? LATEST RESULTS?? Acetaminophen Level?? 09/16/22 06:48?? <10 ??Low?? Salicylate Level?? 09/16/22 06:48?? 5.6?? Ethanol Level?? 09/16/22 06:48?? <5? Urine Toxicology?? LATEST RESULTS?? HISTORICAL RESULTS?? U Amph Scrn?? 09/16/22 07:03?? Negative?? 05/27/22?? Negative?? U Valarie Scrn?? 09/16/22 07:03?? Negative?? 05/27/22?? Negative?? U Benzodia Scrn?? 09/16/22 07:03?? Negative?? 05/27/22?? Negative?? U Buprenorph Scr?? 09/16/22 07:03?? Negative?? 05/27/22?? Negative?? U Cocaine Scrn?? 09/16/22 07:03?? Negative?? 05/27/22?? Negative?? U TCA Scr?? 09/16/22 07:03?? Negative?? 05/27/22?? Negative?? U THC Scr?? 09/16/22 07:03?? Positive Abnormal?? 05/27/22?? Positive Abnormal?? U mAMP Scr?? 09/16/22 07:03?? Negative?? 05/27/22?? Negative?? U Methadone Scr?? 09/16/22 07:03?? Negative?? 05/27/22?? Negative?? U Opiate Scrn?? 09/16/22 07:03?? Negative?? 05/27/22?? Negative?? U Oxy Scrn?? 09/16/22 07:03?? Negative?? 05/27/22?? Positive Abnormal?? U PCP Scrn?? 09/16/22 07:03?? Negative?? 05/27/22?? Negative?? U PPX Scr?? 09/16/22 07:03?? Negative?? 05/27/22?? Negative? UA Macroscopic?? LATEST RESULTS?? HISTORICAL RESULTS?? UA Color?? 09/16/22 07:03?? Yellow?? 03/06/22?? Yellow?? UA Appear?? 09/16/22 07:03?? Hazy Abnormal?? 03/06/22?? Clear?? UA Glucose?? 09/16/22 07:03?? Negative?? 03/06/22?? Negative?? UA Bili?? 09/16/22 07:03?? Negative?? 03/06/22?? 1+ Abnormal?? UA Ketones?? 09/16/22 07:03?? Negative?? 03/06/22?? Trace Abnormal?? UA Spec Grav?? 09/16/22 07:03?? >=1.030?? 03/06/22?? 1.025?? UA Blood?? 09/16/22 07:03?? 2+ Abnormal?? 03/06/22?? Negative?? UA pH?? 09/16/22 07:03?? 5.5?? 03/06/22?? 5.5?? UA Protein?? 09/16/22 07:03?? 2+ Abnormal?? 03/06/22?? Negative?? UA Urobilinogen?? 09/16/22 07:03?? Normal?? 03/06/22?? Normal?? UA Nitrite?? 09/16/22 07:03?? Negative?? 03/06/22?? Negative?? UA Leuk Est?? 09/16/22 07:03?? Negative?? 03/06/22?? Negative?? UA Culture Ind?.?? 09/16/22 07:03?? Indicated? UA Microscopic?? LATEST RESULTS?? UA WBC?? 09/16/22 07:03?? 0-3?? UA RBC?? 09/16/22 07:03?? 0-2?? UA Squam Epithelial?? 09/16/22 07:03?? None Seen?? UA Mucous?? 09/16/22 07:03?? None Seen?? UA Bacteria?? 09/16/22 07:03?? Few Abnormal?? UA Amorph?? 09/16/22 07:03?? Moderate? Infectious Disease?? LATEST RESULTS?? HISTORICAL RESULTS?? 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 09/16/22 06:48?? Unknown?? 03/06/22?? No?? Symptomatic as defined by CDC??? 09/16/22 06:48?? Unknown?? 03/06/22?? Unknown?? Hospitalized due to COVID-19??? 09/16/22 06:48?? No?? 03/06/22?? No?? In ICU??? 09/16/22 06:48?? No?? 03/06/22?? No?? Group care resident??? 09/16/22 06:48?? No?? 03/06/22?? Unknown?? status??? 09/16/22 06:48?? Not ?? 03/06/22?? Not ?? SARS-CoV-2(Covid19)PCR(GXpert COVFLURSV)?? 09/16/22 06:48?? Negative?? 03/06/22?? Negative?? Flu A (GXpert COVFLURSV)?? 09/16/22 06:48?? Negative?? 03/06/22?? Negative?? Flu B (GXpert COVFLURSV)?? 09/16/22 06:48?? Negative?? 03/06/22?? Negative?? RSV (GXpert COVFLURSV)?? 09/16/22 06:48?? Negative?? 03/06/22?? Negative? Electronically Signed on 09/16/22 05:08 PM Layne Daniel MD * Paulina Bahena MD: PERFORM Event Display: ED Note Physician Authored Date: [id number] M[place] COBB :1965 Age:57 years Sex:Female Visit Date:09/16/2022 Primary Care Physician: Homer Merida MD Basic Information Time Seen: Paulina Bahena MD / 09/16/2022 06:43 Chief Complaint Pt called EMS after having a seizure. During arrival, ems reports a 45 second seizure and patient c/o severe headache. Per EMS, patient covid + History Of Present Illness: Patient??said to have called the ambulance??because of seizure??EMS thought that she had a total of3 seizures??they??saw??1 that lasted about a half a minute.?? Notes from??[facility]??suggest??patient called the[facility]??on the ??to say that she has had COVID symptoms since Tuesday the ??with vomiting??and not being able to stand because her head hurt??and requesting serjiothiago.?? Victoria id but is now on her??medication list. ??Unable to give history of patient is postictal??and not verbally??interacting. Review of Systems: see hpi for ros Physical Exam Vitals & Measurements T:??36.5?C ??(Temporal Artery)?? RR:??17?? BP:??193/103?? SpO2:??92%?? HT:??170.180??cm?? WT:??94.30??kg?? BMI:??33.000?? O2 Flow Rate:??2?? O2 Therapy:??Nasal cannula?? General:Somnolent??postictal, well nourished,?No??acute distress Eye: PER?Normal??conjunctiva,??No??scleral icterus HENT: Normocephalic,??nontraumatic??Normal hearing Lungs: Clear to auscultation,?Non-labored?? respiration Heart:?Normal?? rate,?Regular??rhythm,?No??murmur,?No??gallop,?No??edema Chest: wall excursion wnl no abnormal movements no obvious deformities Abdomen: Soft, non-tender, non-distended,?No??masses Musculoskeletal:?No??tenderness,?No??swelling Skin: Skin is warm, dry and pink,?No??rashes,?No??lesions Neurologic: sleepy postictal Psychiatric: Cooperative, appropriate mood and affect Medical Decision Making: For MDM please see under assessment and plan Procedure No Qualifying Data Assessment/Plan 1.??Seizure??R56.9 Patient postictal patient has been given 0.5 mg of Ativan??1 L of fluids??labs have been sent to the lab??patient loaded with 1 g of Keppra.?? Signout given to Dr. Daniel. 2.??COVID-19??U07.1 Patient has??had symptoms??since??09/10/2022. Orders: Acetaminophen Level, Blood, Routine, 09/16/22 6:54:00 EST, Once, Nurse collect Alcohol Level, Blood, Stat, 09/16/22 6:45:00 EST, Once, Nurse collect Comprehensive Metabolic Panel, Blood, Stat, 09/16/22 6:45:00 EST, Once, Nurse collect CV EKG ED, 09/16/22 6:45:00 EST, Routine, Reason: Dizziness, Stop date and time 09/16/22 6:45:00 EST, ORD_SET_REQ_DT_RANGE, [facility] Internal Person Id Drug Screen Urine, Urine, Stat Collect, 09/16/22 6:45:00 EST, Once, Nurse collect, Print Label Salicylate Level, Blood, Routine, 09/16/22 6:55:00 EST, Once, Nurse collect SARS-CoV-2 (COVID-19)/Flu/RSV (GeneXpert), Nasopharyngeal Swab, Stat Collect, 09/16/22 6:44:00 EST,Once, Nurse collect, Print Label, Unknown, Unknown, No, No, No, Not Urinalysis with Micro if Indicated and Culture if Indicated, Urine, Stat Collect, 09/16/22 6:45:00 EST, Once, Nurse collect, Print Label XR Chest 1 View, 09/16/22 6:44:00 EST, Stat, Reason: dyspnea, Transport Mode: Stretcher, Exam to beperformed outside organization? Medication Reconciliation Unchanged albuterol (Albuterol (Eqv-ProAir HFA) 90 mcg/inh inhalation aerosol)2 Puffs Inhale (breathe in) every 3 hours as needed. (USE WITH SPACER). ?? albuterol (albuterol 1.25 mg/3 mL (0.042%) inhalation solution)Nebulized inhalation (inhale using nebulizer) 3 times a day. ?? aspirin (aspirin 81 mg oral tablet, chewable)1 tab Chewed every day. ?? budesonide-formoterol (Symbicort 80 mcg-4.5 mcg/inh inhalation [...] 50 mcg/inh nasal spray)1 Sprays Nostril-Both every day. ?? lactobacillus acidophilus (Acidophilus Probiotic Blend)Oral (given by mouth) every day. ?? losartan (losartan 25 mg oral tablet)1 tab Oral (given by mouth) every day. Refills: 3. ?? metoprolol (Metoprolol Succinate ER 25 mg oral tablet, extended release)0.5 tab Oral (given by mouth) every day. ?? naloxone (Narcan 4 mg/0.1 mL nasal spray)1 Sprays Nasal (into the nose) once. may repeat every 2 to3 minutes until patient responds. ?? naproxen (naproxen 500 mg oral tablet)1 tab Oral (given by mouth) 2 times a day. As directed. ?? nicotine (nicotine 7 mg/24 hr transdermal film, extended release)1 patch(es) Transdermal (apply on the skin) every day. ?? nirmatrelvir-ritonavir (Paxlovid 150 mg-100 mg (300 mg-100 mg Dose) oral tablet)2 tab Oral (given by mouth) 2 times a day for 5 Days. RENAL DOSING (30-60 ml/min). Take one 150 mg nirmatrelvir tablet with one 100 mg ritonavir tablet at the same time as indicated on the blister cards. Provide Fact Sheet for Patients/Caregivers. Refills: 0. ?? omeprazole (omeprazole 20 mg oral delayed release capsule)1 Capsules Oral (given by mouth) every day. Refills: 3. ?? Other Prescription (METOPROLOL SUCC ER 25 MG TAB)0.5 tab Oral (given by mouth) every day. [...] severe for 28 Days. Refills: 0. ?? predniSONE (predniSONE 20 mg oral tablet)2 tab Oral (given by mouth) every day. for 5 days. ?? pregabalin (Lyrica 300 mg oral capsule)1 Capsules Oral (given by mouth) every day for 28 Days. Refills: 1. ?? rosuvastatin (rosuvastatin 10 mg oral tablet)1 tab Oral (given by mouth) every day. Refills: 3. ?? senna (Senna 8.6 mg oral tablet)TAKE TWO TABLETS BY MOUTH EVERY DAY NEEDED FOR 14 DAYS. Refills:3. ?? tiotropium (Spiriva HandiHaler 18 mcg inhalation capsule) ?? traZODone (traZODone 300 mg oral tablet)TAKE ONE TABLET BY MOUTH AT BEDTIME. Refills: 0. ?? umeclidinium (Incruse Ellipta 62.5 mcg/inh inhalation powder)1 Each Inhale (breathe in) every 24 hours for 30 Days. doses should be taken at least 24 hours apart. Refills: 11. Problem List/Past Medical History Ongoing Active or passive immunization Acute cervical sprain Acute thoracic back pain Allergic conjunctivitis Allergic rhinitis Amnesia Arthritis Cataract Cerebral hemorrhage Cerebrovascular accident Chronic hepatitis C Chronic obstructive lung disease Chronic pain Constipation Cyst of face Degeneration of cervical intervertebral disc Degeneration of lumbar intervertebral disc Essential hypertension Fatigue Focal dystonia Gastroesophageal reflux disease Heart disease Hyperlipidemia Hypoxemia Hypoxia Lower urinary tract symptoms Medication monitoring encounter Memory impairment Mixed anxiety and depressive disorder Muscle pain Nicotine dependence Pain in right hip joint Pain in thoracic spine Pain of left ankle joint Pain of left wrist Pneumonia Polyp of gallbladder Postmenopausal osteoporosis Refractory migraine with aura Seizure Sleep disorder Tobacco abuse disorder Tremor Vitamin D deficiency Historical Medication monitoring Procedure/Surgical History ???Colonoscopy (07/06/2021)???EGD - Esophagogastroduodenoscopy (07/06/2021)???Laparoscopic cholecystectomy (05/25/2021)???Placement of stent in coronary artery x2 (07/29/2017)???Colonoscopy (03/18/2010)???EGD - Esophagogastroduodenoscopy (03/18/2010)???Cervical spinal fusion (09/26/2007)???Procedure; plates in neck (2003)???Remove lamina/facets lumbar (09/26/2003)???Procedure on left ankle; 2 screws (09/26/1988)???Appendectomy???Procedure on right shoulder???Total hysterectomy Medication Administration Given 0.9% NaCl bolus, 1 L, IV Bolus Ativan, 0.5 mg, IV Push Keppra, IV Piggyback Allergies ampicillin??(Facial swelling, Skin rash) [...] and Differential?? LATEST RESULTS?? HISTORICAL RESULTS?? WBC?? 09/16/22 06:48?? 13.1 ??High?? 03/06/22?? 11.6 ??High?? RBC?? 09/16/22 06:48?? 5.3?? 06/11/22?? 4.7?? Hgb?? 09/16/22 06:48?? 16.8 ??High?? 03/06/22?? 15.2?? Hct?? 09/16/22 06:48?? 50.5 ??High?? 03/06/22?? 44.6?? MCV?? 09/16/22 06:48?? 94.6?? 03/06/22?? 94.3?? MCH?? 09/16/22 06:48?? 31.5?? 03/06/22?? 32.1 ??High?? MCHC?? 09/16/22 06:48?? 33.3?? 03/06/22?? 34.1?? RDW-CV?? 09/16/22 06:48?? 13.1?? 03/06/22?? 12.6?? Platelets?? 09/16/22 06:48?? 276?? 03/06/22?? 225?? Neutro Auto?? 09/16/22 06:48?? 79.9 ??High?? 03/06/22?? 64.8?? Lymph Auto?? 09/16/22 06:48?? 14.6 ??Low?? 03/06/22?? 20.6?? [place] Auto?? 09/16/22 06:48?? 4.5?? 03/06/22?? 11.9?? Eos, Auto?? 09/16/22 06:48?? 0.1 ??Low?? 03/06/22?? 2.0?? [place] Auto?? 09/16/22 06:48?? 0.4?? 03/06/22?? 0.4?? Imm Gran Auto?? 09/16/22 06:48?? 0.5?? 03/06/22?? 0.3?? Neutro Absolute?? 09/16/22 06:48?? 10.5?? 03/06/22?? 7.5? Electronically Signed on 09/16/22 07:01 AM Paulina Bahena MD Physical therapy Progress note * Jazmin Cisneros: PERFORM, MODIFY, MODIFY, MODIFY Event Display: Physical Therapy Progress Note Authored Date: [id number] Patient ID and date of checked:??Yes *Current Level of Care: In-Patient *Admitting Diagnosis: COVID 19 *Therapy Diagnosis: Imbalance Pertinent Medical History: Active or passive immunization: (Medical) (10/23/18) Acute cervical sprain: (Medical) (03/26/19) Acute thoracic back pain: (Medical) (03/26/19) Alcoholism: (Medical) Allergic conjunctivitis: (Medical) (04/25/20) Allergic rhinitis: (Medical) (07/31/18) Amnesia: (Medical) Arthritis: (Medical) (04/14/20) Cataract: (Medical) (02/08/20) Cerebral hemorrhage: (Medical) Cerebrovascular accident: (Medical) (09/26/12) Chronic hepatitis C: (Medical) (04/24/18) Chronic obstructive lung disease: (Medical) (04/19/18) Chronic pain: (Medical) Constipation: (Medical) (06/17/21) Cyst of face: (Medical) (02/08/18) Degeneration of cervical intervertebral disc: (Medical) (12/28/18) Degeneration of lumbar intervertebral disc: (Medical) (04/24/18) Elevated troponin level: (Medical) Essential hypertension: (Medical) (07/31/18) Fatigue: (Medical) (04/19/18) Focal dystonia: (Medical) (04/14/20) Gastroesophageal reflux disease: (Medical) (07/31/18) Heart disease: (Medical) (04/19/18) Hyperlipidemia: (Medical) (07/31/18) Hypertension: (Medical) Hypoxemia: (Medical) Hypoxia: (Medical) Lower urinary tract symptoms: (Medical) (07/31/18) Medication monitoring encounter: (Medical) Memory impairment: (Medical) (04/14/20) Mixed anxiety and depressive disorder: (Medical) (04/24/18) Muscle pain: (Medical) (04/24/18) Nicotine dependence: (Medical) (10/23/18) Pain in right hip joint: (Medical) (07/31/18) Pain in thoracic spine: (Medical) (12/28/18) Pain of left ankle joint: (Medical) (05/27/21) Pain of left wrist: (Medical) (04/14/20) Pneumonia: (Medical) Polyp of gallbladder: (Medical) (10/16/18) Postmenopausal osteoporosis: (Medical) (07/31/18) Refractory migraine with aura: (Medical) Seizure: (Medical) Sleep disorder: (Medical) (07/31/18) Tobacco abuse disorder: (Medical) Tremor: (Medical) (04/14/20) Vitamin D deficiency: (Medical) (07/31/18) *Subjective: Patient states that she woke to seizure-like symptoms in her lower extremities on 09/16/2022. Patient states she has a remote history of seizures as a child, with an additional seizure she experienced at the age of 43. Patient states that she called EMS who witnessed a 45-second seizure. Patient was also complaining of a severe headache. Per EMS patient is COVID-positive. Patient was admitted from the ED due to concerns for her seizures. 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 Patient is willing to work with PT and OT today. Hand Dominance: Right *Barriers to Learning: ??x None Communication Cultural Education level Hearing Language Vision Physical Cognitive Motivational Emotional Precautions: ??x Standard precautions MRSA/VRE Contact precautions Droplet precautions Airborne precautions ??* Covid precautions Total hip replacement Total knee replacement Total shoulder replacement Fall risk ??*Some medical documentation states patient is COVID-positive, no contact precautions outside of the room. Weight Bearing:??Not applicable _?_ *Previous Level of Function: Independent with all ADLs, caregiver, independent with driving, meal prep Occupational Status/Profile: Disabled Prior Home Setup: ?? Living Situation/Level of Supervision: Lives with 2 grandchildren ?Living Environment: Apartment ?Stairs/Ramps: Present with rail ?Home Equipment: None *Current Level of Function: Unstable with ambulation Pain: None reported Vision/Hearing: Unknown Cognition: ?? Attention: Intact ?Communication: Appropriate ?Follows Commands: Yes ?Insights into Deficits: Appropriate ?Level of Consciousness: Alert and oriented ?Kitchen Supervisor Memory: Unknown ?Short Term Memory: Appears intact ?Orientation: Intact ?Safety Awareness: Appropriate Passive/Active Range of Motion: Not assessed Manual Muscle Testing: Not assessed Proprioception/Sensation: Not assessed Edema: Not observed Coordination: Patient able to independently don pants ?? Fine Motor: ?Gross Motor: Tone: N/A Bed Mobility: Independent Activity Assistance Comments Rolling Scooting/Repositioning Independent Supine to Sit Independent Sit to Supine Independent Transfers: Activity Assistive Device Assistance Comments Sit to Stand Standby assist Due to patient reports of unsteadiness Stand to Sit Standby assist Due to patient reports of unsteadiness Bed to Chair Chair to Bed Shower Transfer Toilet Transfer Ambulation: Assistance Assistive Device Distance Comments Standby assist Gait belt only 50+ feet Increased lateral wrist with occasional protective step, occasional furniture walking observed today. Patient does not endorse any dizziness however does verbalize unsteadiness and a concern for moving too quickly that she may fall. Stairs: Assistance Assistive Device # Steps Comments Standby assist 2 ascended and descended 1 rail, reciprocal gait Wheelchair Mobility: Not applicable Assistance Distance Comments Balance: ?? Static Sitting: Good ?Dynamic Sitting: Good to don pants ?Static Standing: Good ?Dynamic Standing: Fair Posture: Within normal limits Skin Integrity: Some scabbing on the foot secondary to patient fall out of the bed during attempt to stand post seizure *Standardized Testing:??N/A Standardized Test: _ ? Score: ? Comments: *Patient Education: Plan to follow-up in the next few days to assess for improved steadiness. *Physical Therapy Assessment: Patient is a 57-year-old female admitted to [facility] from the ED secondaryto seizure activity. Patient's past medical history is notable for report of COVID-19 positive, amnesia, cerebral hemorrhage, CVA, chronic hep C, COPD, memory impairment, anxiety and depression, nicotine dependence, migraine, seizures, tremors. Patient states that prior to yesterday she was fully independent acting as a caregiver for her 2 grandchildren. Patient suffered a seizure of which she has a remote history. Patient was brought to the emergency department and admitted for additional assessment. Patient was for the most part quite independent with bed mobility and transfers but does demonstrate some instability during ambulation. Per report they are planning on an MRI for further assessment. PT feels it is prudent to follow-up with the patient in the next few days to assure that shecan demonstrate improved safety with ambulation for safe return home. *Rehab Potential: Fair?to reach and maintain prior level of function *Short Term Goals?time frame: Deferred to long-term goals *Kitchen Supervisor Goals?time frame: In 2 days the patient will; 1. Demonstrate the ability to safely ambulate household distances for safe return home. *Patient Goals: To return home PT Plan of Care (as per below) *Treatment Duration: 2 days *Treatment Frequency: One time *Treatment Intensity: 30 min *Planned Treatment Interventions: CPT 87863: Therapeutic Exercise ??x CPT 93094: Therapeutic Activity ??x CPT 11946: Gait Training ??x CPT 35512: Neuromuscular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 (09/26/2003)???Procedure on left ankle; 2 screws (09/26/1988)???Appendectomy???Procedure on right shoulder???Total hysterectomy Social History Alcohol Current, Beer, Daily- Comments: 2 beers daily Electronic Cigarette/Vaping Electronic Cigarette Use: Never. Home/Environment Lives with Children, Roomate(s)/Friend(s). Living situation: Home/Independent. Nutrition/Health Caffeine intake amount: 2-4 c coffee every day. Substance Use Current, Marijuana, Daily- Comments: sleep Tobacco Current everyday tobacco user Tobacco Use:. 1/2 pack since 01/2022 prior was 1 PPD per day. 40 year(s). Total pack years: 40. Lab Results Last 72 Hours?? Chemistry Event Name?? Event Result?? Date/Time?? Sodium Level 137 mmol/L 09/19/22 06:45:00 Potassium Level 4.3 mmol/L 09/19/22 06:45:00 Chloride Level 102 mmol/L 09/19/22 06:45:00 CO2 30 mmol/L 09/19/22 06:45:00 Alk Phos 77 unit/L 09/19/22 06:45:00 AST 35 unit/L 09/19/22 06:45:00 ALT 26 unit/L 09/19/22 06:45:00 BUN 12 mg/dL 09/19/22 06:45:00 Glucose Level 104 mg/dL 09/19/22 06:45:00 Creatinine Level 1.07 mg/dL??High 09/19/22 06:45:00 eGFR AA 60 09/19/22 06:45:00 eGFR Non-AA 60 09/19/22 06:45:00 Calcium Level 9.2 mg/dL 09/19/22 06:45:00 Phosphorus Level 4 mg/dL 09/19/22 06:45:00 Protein Total 7.3 g/dL 09/19/22 06:45:00 Albumin Level 3.6 g/dL 09/19/22 06:45:00 Bilirubin Total 0.8 mg/dL 09/19/22 06:45:00 Magnesium Level 1.8 mg/dL 09/19/22 06:45:00 CK 380 unit/L??High 09/16/22 19:30:00 Troponin-I 22.9 pg/mL 09/19/22 06:45:00 TSH 2.809 mcIntlUnit/mL 09/16/22 19:30:00 ? Hematology Event Name?? Event Result?? Date/Time?? WBC 10.3 x10^3/mcL??High 09/19/22 06:45:00 RBC 4.4 x10^6/mcL 09/19/22 06:45:00 Hgb 13.8 g/dL 09/19/22 06:45:00 Hct 41.4 % 09/19/22 06:45:00 MCV 94.3 09/19/22 06:45:00 MCH 31.4 pg 09/19/22 06:45:00 MCHC 33.3 g/dL 09/19/22 06:45:00 RDW-CV 12.8 % 09/19/22 06:45:00 Platelets 211 x10^3/mcL 09/19/22 06:45:00 ? All Other Results Event Name?? Event Result?? Date/Time?? Influenza A -IDNOW NOT DETECTED. 09/17/22 07:10:00 Influenza B -IDNOW NOT DETECTED. 09/17/22 07:10:00 HSV Molecular Detection 1, PCR [facility] Negative 09/17/22 17:20:00 HSV Molecular Detection 2, PCR [facility] Negative 09/17/22 17:20:00 Clarity CSF Clear 09/17/22 17:20:10 WBC CSF <0.003 09/17/22 17:20:10 RBC CSF 10 x10^6/mcL 09/17/22 17:20:10 Xanthochromia CSF Absent 09/17/22 17:20:10 Protein CSF 40 mg/dL 09/17/22 17:20:10 Glucose CSF 59 mg/dL 09/17/22 17:20:10 ? Diagnostic Results Exam: MR Head Without Contrast?? Exam date and time: 09/17/2022 11:14 AM?? Age: 57 years old?? Clinical indication: Seizure? TECHNIQUE:?? Imaging protocol: Magnetic resonance imaging of the head without?? contrast.? COMPARISON:?? CT HEAD/BRAIN WO CONTRAST 09/16/2022 2:20 PM? FINDINGS:?? Brain: Diffusion-weighted imaging demonstrates no evidence of an?? acute ischemic event. Areas of small vessel ischemic changes are?? noted bilaterally in the lung parenchyma versus areas of inflammation?? of the cortex as this has a low grade curvilinear appearance?? involving the gyri. Presence of encephalitis needs to be considered.?? Old area of suspected ischemia posterior left parietal. There is no?? midline shift. Abnormal extra-axial fluid collections are not seen.?? The workman-white matter differentiation is appropriate.?? Cerebral ventricles: Normal. No ventriculomegaly.?? Pituitary gland and sella: There is an empty sella syndrome.?? Bones/joints: Unremarkable.?? Paranasal sinuses: Questionable small polyp posteriorly within the?? right maxillary sinus inferiorly versus mucous membrane thickening.?? Mastoid air cells: Normal as visualized. No mastoid effusion.?? Orbital cavities: Unremarkable.?? Soft tissues: Unremarkable.? IMPRESSION:?? 1. There are multiple areas bilaterally of increased signal noted.?? These are chiefly however, in a cortical curvilinear gyral type?? appearance. I suspect this may represent encephalitis or inflammatory?? type process with other areas more classic for small vessel ischemic?? changes.?? 2. Consider contrast scanning.?? Discharge Plan 1.??Seizure??F10.132 Recurrent seizures with patient having??possibility of??PRES as??an etiology with uncontrolled blood pressure??but also this could have been alcohol withdrawal??syndrome??with also recent prescribingof Paxlovid for possible COVID infection.?? She is off Paxlovid, blood pressure will be better controlled and she will??stop alcohol use??though she was advised to have possible alcohol??cessation counseling ongoing.?? She has failed a complete cessation of alcohol in the past. ??She minimizes her intake.?? She also should not be drinking alcohol with chronic narcotic therapy. 2.??PRES (posterior reversible encephalopathy syndrome)??I67.83 Recurrent with patient having this diagnosis in the [place] [facility] Follow-up MRI??and neurology. 3.??Encephalitis??G04.90 Less likely etiology of patient's MRI changes and seizures. ??She was on acyclovir for short course??with IV therapy until CSF could be evaluated and was negative.?? She will not be on any??antiviralor??antibiotics at home. 4.??Hypertension??I10 Less controlled during hospital stay which could have been from alcohol withdrawal but also??stressof recent seizures. ??Patient will??advance??blood pressure control with metoprolol??succinate??25 mg??daily??and increase losartan to 50 mg daily.?? Stopping alcohol may also help with blood pressure control. 5.??Alcoholism??F10.20 Advised complete cessation with patient to work on this. 6.??Cerebrovascular accident??G46.0 Previous??left CVA stable??with imaging. 7.??Elevated troponin level??R77.8 Transient elevation of troponins which normalized. 8.??Degeneration of lumbar intervertebral disc??M51.36 Chronic pain on oxycodone which should be decreased if possible to intermittent use. ??Patient willwork on this. 9.??Mixed anxiety and depressive disorder??F41.8 Continue antidepressants and avoid benzodiazepines with chronic narcotic use. 10.??Chronic pain??G89.29 Monitor for safety as outpatient. 11.??COVID-19??U07.1 Positive home test which was negative upon this admission with diagnosis??less likely as acute COVID infection.?Paxlovid was stopped. 12.??Chronic obstructive lung disease??J44.1 Continue inhaler therapy and??tobacco cessation. ??Patient was given NicoDerm at 7 mg/24 h??to be changed daily??as an outpatient with tobacco cessation. Orders: Keppra 250 mg oral tablet, 500 mg = 2 tab, Oral, BID, # 120 tab, 5 Refill(s), Pharmacy: [id number], 170.18, cm, 09/16/22 6:46:00 EST, Height/Length Dosing, 94.3, kg, 09/16/22 6:46:00 EST, Weight Dosing Ativan, 0.5 mg = 1 tab, Oral, Tab, every 6 hr for 3 days, PRN anxiety, First Dose: 09/18/22 15:39:00 EST, Stop Date: 09/21/22 15:38:00 EST, Physician Stop, Routine losartan, 50 mg = 1 tab, Oral, Tab, Daily, First Dose: 09/20/22 9:00:00 EST, Routine losartan 50 mg oral tablet, 50 mg = 1 tab, Oral, Daily, # 90 tab, 3 Refill(s), Pharmacy: [id number], 170.18, cm, 09/16/22 6:46:00 EST, Height/Length Dosing, 94.3, kg, 09/16/22 6:46:00 EST, Weight Dosing metoprolol succinate 25 mg oral tablet, extended release, 25 mg = 1 tab, Oral, Daily, # 90 tab, 3 Refill(s), Pharmacy: [facility][id number], 170.18, cm, 09/16/22 6:46:00 EST, Height/Length Dosing, 94.3, kg, 09/16/22 6:46:00 EST, Weight Dosing nicotine 7 mg/24 hr transdermal film, extended release, 1 patches, TD, Film, Daily, First Dose: 09/20/22 9:00:00 EST, Routine nicotine 7 mg/24 hr transdermal film, extended release, 1 patches, TD, Daily, # 14 patches, 1 Refill(s), Pharmacy: [facility][id number], 170.18, cm, 09/16/22 6:46:00 EST, Height/Length Dosing, 94.3, kg, 09/16/22 6:46:00 EST, Weight Dosing Discharge Activity Restrictions, No Driving, Until follow up and cleared by neurology Discharge Diet Instruction, Cardiac Diet Discharge Follow Up Instructions, 09/19/22 14:39:00 EST, When following are met: Other (please specify), Follow up with specialist with neurology consultation to be within 3 to 4 weeks, follow-up MRI2 weeks Discharge Patient, 09/19/22 14:39:00 EST, Home Independently All Diagnoses This Visit Seizure PRES (posterior reversible encephalopathy syndrome) Encephalitis Hypertension Alcoholism Cerebrovascular accident Elevated troponin level Degeneration of lumbar intervertebral disc Mixed anxiety and depressive disorder Chronic pain COVID-19 Chronic obstructive lung disease Patient Instructions Call your primary care provider for: Temperature greater than 101F. Pain that does not go away. Persistent nausea, vomiting or constipation. Shortness of breath, with or without chest discomfort. Weight gain of 3 or more pounds per day. Patient Education Epilepsy, [id number] Alcohol Withdrawal Syndrome, [id number] Alcohol Use Disorder Follow Up With When Contact Information Homer Merida MD Within 1 to [address] [place] [address]- Additional Instructions: Need referral to neurology and??schedule??follow-up MRI??in 2 to 3 weeks. Medication Reconciliation New Prescription levETIRAcetam (Keppra 250 mg oral tablet)2 tab Oral (given by mouth) 2 times a day for 30 Days. Refills: 5. ?? Changed albuterol (Albuterol (Eqv-ProAir HFA) 90 mcg/inh inhalation aerosol)2 Puffs Inhale (breathe in) every 3 hours as needed. (USE WITH SPACER). ?? fluticasone nasal (fluticasone 50 mcg/inh nasal spray)1 Sprays Nostril-Both every day as needed allergy symptoms. ?? lactobacillus acidophilus (Acidophilus Probiotic Blend)1 Capsules Oral (given by mouth) every day. ?? losartan (losartan 50 mg oral tablet)1 [...] day for 14 Days. Refills: 1. ?? Unchanged aspirin (aspirin 81 mg oral tablet, chewable)1 tab Chewed every day. ?? budesonide-formoterol (Symbicort 80 mcg-4.5 mcg/inh inhalation [...] by mouth) every day. Refills: 3. ?? omeprazole (omeprazole 20 mg oral delayed [...] at least 24 hours apart. Refills: 11. ?? Discontinued naloxone (Narcan 4 mg/0.1 mL nasal spray)1 Sprays Nasal (into the nose) once. may repeat every 2 to3 minutes until patient responds. ?? nirmatrelvir-ritonavir (Paxlovid 150 mg-100 mg (300 mg-100 mg Dose) oral tablet)2 tab Oral (given by mouth) 2 times a day for 5 Days. RENAL DOSING (30-60 ml/min). Take one 150 mg nirmatrelvir tablet with one 100 mg ritonavir tablet at the same time as indicated on the blister cards. Provide Fact Sheet for Patients/Caregivers. Refills: 0. ?? Other Prescription (METOPROLOL SUCC ER 25 MG TAB)0.5 tab Oral (given by mouth) every day. Refills: 3. ?? predniSONE (predniSONE 20 mg oral tablet)2 tab Oral (given by mouth) every day. for 5 days. ?? tiotropium (Spiriva HandiHaler 18 mcg inhalation capsule) Electronically Signed on 09/19/22 03:02 PM Homer Merida MD Electronically Signed on 09/19/22 03:20 PM Homer Merida MD Patient Care team information Personnel Name: Homer Merida MD Address: Address: [facility] [address]
--- OUTSIDE RECORDS SUMMARY | 2023-07-08 05:40 | XMS_ITS | CCD ---
Author Name Unknown Address [address] [place] [id number] Organization Unknown Address [address] [place], [place] [id number] Care Team Providers Care [employer] Service Writer Name Role Phone VIR[place]IA LOWERY DPM Attending Physician [phone] Vital Signs Unknown or Not Available. Allergies Unknown or Not Available. Procedures Unknown or Not Available. History of Immunizations Unknown or Not Available. Problems Unknown or Not Available. Results Unknown or Not Available. Active Medications Unknown or Not Available. Medications Administered During Visit Unknown or Not Available. Encounters Encounter Diagnosis Diagnosis Code Start Date Idiopathic osteoarthritis [id number] 2020 Social History Smoking Status Code Start Date End Date Current every day smoker [id number] Patient Decision Aids Unknown or Not Available. Discharge Instructions You were admitted to 01 on 04/27/2021 12:51 with a principal diagnosis of Primary osteoarthritis, right ankle and foot You were discharged from on 04/27/2021 12:51 Should you have any questions prior to [...]
[2023-07-08] MEDS: Inhaler, Assist Device 1 EACH MC (11:08)
[2023-07-08] MEDS: Levalbuterol HFA 15 GM INH 4 PUFF IH (11:08)
--- NOTE | 2023-07-08 15:45 | W.PFT ---
Date of service: 07/08/23 Time of Service: 10:02 Pulmonary Function Test Result Indications: Pre-op Interpretation Spirometry: There is no airflow limitation.There is borderline bronchodilator response (11% increase and 240cc in FEV1). Lung Volumes: Normal lung volumes Diffusion Capacity: Normal diffusion Airway Pressure: Normal airways resistance Impression Normal pulmonary function with a borderline positive bronchodilator response. Clinical Correlation therefore is recommended.
== END 2023-07-08 05:32 | disposition home or self-care (01) ==
LOC: RT 05:31
PROVIDERS: PCP Internal Medicine; Visit Provider Surgery
DX: I25.10 Atherosclerotic heart disease of native coronary artery without angina pectoris (principal); J44.9 Chronic obstructive pulmonary disease, unspecified; I10 Essential (primary) hypertension; G47.33 Obstructive sleep apnea (adult) (pediatric); Z72.0 Tobacco use
CPT/HCPCS: 94060; 94726; 94729

== ENCOUNTER 2023-08-09 09:03 | Day surgery (SDC) | payer MEDICARE, MEDICAID, SELFPAY ==
--- NOTE | 2023-08-08 17:29 | HPE_ITS ---
Date of service: 08/09/23 Time of Service: 11:03 Assessment and Plan Assessment and plan (1) Pulmonary hypertension: Status: Acute (2) Diastolic dysfunction: Status: Acute (3) Dilated aortic root: Status: Acute (4) Atherosclerosis of aorta: Status: Acute (5) CAD (coronary artery disease): Status: Chronic (6) Coronary artery calcification seen on CAT scan: Status: Acute (7) Diverticulitis: Status: Chronic (8) Atherosclerotic heart disease of [place] coronary artery without angina pectoris: Status: Acute (9) Seizures: Status: Acute (10) PRES (posterior reversible encephalopathy syndrome): Status: Acute (11) Abdominal pain: Status: Acute Assessment and plan: Informed consent is obtained for the procedural (explained in simple layman's terms that the pt. and/or family could understand) explaining risks vs benefits and alternatives to the procedure and consequences if we do not do the procedure and need/rational for the procedure. Risks include but are not limited to: bleeding, infection, perforation of esophagus, stomach, colon, small intestines, bronchus or trachea, or PTX. This would necessitate emergency surgery to repair the damage w/ possible ostomy; and other associated complications w/ the required surgery. Also complications of anesthesia including aspiration, MD/CVA/. (12) NIKKI (obstructive sleep apnea): (13) COPD (chronic obstructive pulmonary disease): (14) Tobacco abuse: (15) Hepatitis C: (16) Chronic nausea: Status: Acute (17) History of colon polyps: Status: Acute (18) Skin lesion of left arm: Status: Acute Assessment and plan: We have discussed this procedure, including option of not performing surgery, technique of surgery and potential for: bleeding/infection/scarring/need for removal of more tissue/ reaction to local anethesetics or sutures material/poor cosmesis/reoccurrence, and post-procedural care that is required, as well as a multi-modality pain plan.? Post-procedural pain/swelling/bruising is normal. Patient is able to do post procedural dressing changes and understands what is expected. site marked in same day History of Present Illness Narrative: Patient is here today for colonoscopy for hx of diarrhea/ rectal bleeding, and colon polyps, and an EGD for chronic n/v. ?? They completed a bowel prep with just a clear yellow residual effluent.? They not having any chest pain or shortness of breath, currently.? They are not experiencing any fever or chills.? They deny any productive cough or upper respiratory tract infection signs or symptoms.? They are not having abdominal pain, or nausea and vomiting.? They have not had any changes in medications, past medical history or past surgical history since previously being seen in the office. They have not had any accidents or have been in the ER since the clinic pre-operative evaluation. ??I reviewed the procedure with the patient today, including risks and benefits of the procedure, and what they could expect at home for recovery.? All questions are answered to the patient?s satisfaction today, and they are stable to proceed with the proposed procedure. No recent seizures. Results of echo/PFTs/CT scans/MRIs on chart. She also has a lesion on her posterior left upper arm that she would like removed today. She understands that she will have stitches and she will need to come to the office and have these removed in 10 days. It would leave a scar. There is always risks of bleeding or infection. If it should come back to the malignancy then she may need to have more tissue removed. There is always reaction to anesthesia. Clinic 06/06 RN: Pt here for colonoscopy pre op. Pt reports nausea and stomach pain. 10 day course of vancomycin to treat c.diff. Pt does report blood in stool. They deny any pain or difficulty with bowel movements, or rectal bleeding.? There is no family history of any colon cancer.? Pt has not had any unexplained weight loss.? Their appetite is good.? ? They have not had any prior colo-rectal surgery.? The patient has had a prior JANY.? They deny any problems with anesthesia in the past. Patient really was recently diagnosed with C. difficile. She was treated with 10 days of p.o. vancomycin. Her procedure was delayed for this. BM- x2 per day. pudding. had RB. rectal pain abdominal pain- upper abdominal wall. in bandlike fashion. doens't radiate into back. pain and nausea. 2017- x2 cardiac stents. last echo was 2 yrs ago at [facility] Sees Dr. Shaw at [facility]. misssed appt. so didn't get echo scheduled . Anesthesia: general (without airway) Previous surgical intolerances: No Previous surgical complications: No Pulmonary risk factors: Planned procedure: Yes Sleep apnea risks: No COPD/Asthma/Smoker: Patient has COPD and is an active smoker. She wears oxygen at night. Is unclear who prescribes her oxygen. [facility] is her PCP. Can climb one flight of stairs (12-13 steps) in less than 30 seconds without stopping and without symptoms: Yes The surgery proposed for this patient is: low risk Active cardiac conditions: The patient has had a history of MD and has had 2 stents placed. She normally follows up with Dr. Carpio from cardiology at [facility]. She missed her appointment this year. Her last echo was 2 years ago. (see echo below) Active risk factors: none ASA (acetylsalicylic acid): yes Beta blockers: Metoprolol Kidneys: no concerns DM: No Clinic visiti 05/04/23 She is 58 years old, and she tells me over the past several years, she has been dealing with sharp crampy abdominal pain that is associated with bloating, nausea, vomiting, and 5-6 loose bowel movements per day.? She tells me she awakens from sleep usually around 2:58 in the morning with a sensation of nausea, she has an episode or 2 of vomiting and this relieves the nausea, allows her to get back to sleep.? When she wakes in the morning, she does not have much appetite.? It is not until later in the day where she develops enough hunger to eat.? She denies any exacerbation of her symptoms with eating.? Her loose bowel movements occur all throughout the day.? She denies blood, hematochezia, or melena.? She thinks this may have all started several years ago around the time of her seizure, but her symptoms have certainly become worse over the past 2 to 3 years.? With regards to her neurologic history, most significant diagnosis includes tonic-clonic seizures, and associated posterior reversible e ncephalopathic syndrome.? She is followed closely by the neurologist here, and has been stable over the past several visits. She tells me that she has undergone colonoscopy in the past, and she has had of polyps removed.? As best I can tell, the last colonoscopy was in 2017. Past surgical history significant for laparoscopic cholecystectomy. She has been a lifelong 1 pack/day tobacco smoker.? She uses oxygen by way of nasal cannula at home to help sleep.? She tells me that she was advised at some point that she may benefit from CPAP, but she has never been able to tolerate wearing a mask. She drinks 3-4 beers every day. 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; her father told her these were the same symptoms she was having as a kid -she is NOT having any passing out -did go to her PCP who gave her a nausea medication - but this did not help and made her dizziness worse -she is scheduled for CT A/P next month - she notes she is on the cancellation list -she ended up stopping LEV since last seen (she did not tell my nurse this at intake) -she was very angry that I did not think her current symptoms were due to seizures -I suggested that she re-start LEV regardless as she felt that her nausea/emesis is worse since stopping LEV; she then became more angry saying that LEV actually made her so much worse and she is never going back on it -headaches are infrequent ?PRES (posterior reversible encephalopathy syndrome): (2) Seizures: Plan #1. Recurrent GTCs secondary to PRES with prior history of same, complicated by prior stroke.? Her brain MRI has returned to normal with no further evidence of PRES (and normal amb EEG) thus she does not necessarily need an ongoing seizure medication as all of her seizures have occurred in the setting of PRES.? However, her prior history of stroke also places her at risk for seizures so one could argue to continue a seizure medication. ? She opts to not be on seizure medication at this time. #2. Nausea/emesis.? Discussed that her symptoms are not consistent with epilepsy and that she continue care and work-up with PCP.? Given fatigue, could consider updated brain MRI imaging to ensure PRES has no recurred.? She was not interested in doing that today. The patient is a 58-year-old female who presents today with abdominal pain. She states that she observed rectal bleeding last week. The patient mentions that she has 2 bowel movements per day usually. She states that sometimes she has more than 2 bowel movements a day. She denies experiencing pain with bowel movement. The patient mentions that she experiences pain when she is active and tries doing any activities. She mentions that it is not hard or soft and states that it is not diarrhea. She reports having migrating abdominal pain and rectal pain. She denies radiating pain to the back. She states that she gets nauseous and must breathe when she feels the pain. She reports vomiting and denies hematemesis. She observes yellowish vomit. The patient states that she has been sick the entire year. She denies being on any medications except omeprazole currently for her gastrointestinal issues. She has been on omeprazole 40 mg daily for about 3 months now without benefits. She is taking aspirin 81 mg daily. The patient states that she takes naproxen when she has issues with her back and legs. She mentions that she takes naproxen not more than twice a week and tries not to take it. She states that taking a lot of naproxen does not seem to bother her abdomen. She reports constant gas and bloating. The patient mentions that the pain is on the slight right side. She mentions that she gets abdominal cramps occasionally when she moves in the wrong way or even by sitting idle. She mentions that her abdominal cramps are not related to the food she has eaten. She has a history of cholecystectomy which does not seem to help her. The patient reports mild skin cancer. She mentions that the condition runs in her family. She denies any problems with anesthesia. She has a history of 2 myocardial infarctions and 1 cerebrovascular accident. She had her last myocardial infarction in 2017 and has 2 stents placed. She states that she missed her last appointment with the call center dispatcher in [place] and has saw him 1 year ago. She had an appointment scheduled with his provider this spring, but she did not follow up as she was sick. She denies being on any seizure medications currently. She states that the seizure tablets make her more ill occasionally. She was advised to redo an Echo of his heart by his call center dispatcher. The patient mentions that she must undergo an Echo before doing colonoscopy or an endoscopy. She denies chest pain with climbing stairs; however, she gets shortness of breath as she is a smoker. She states that the last time she was checked for chest pain was 2 years ago. Social history: She admits smoking cigarettes. She mentions that she smokes 1 pack of cigarettes a day. The patient drinks around 2 to 3 small cups of coffee a day. She rarely drinks soda. She drinks beer every day. She drinks around 3 or 4 beers a day. Allergies: She is allergic to SULFA, IMITREX, ALPRAZOLAM, and AMPICILLIN. PFT 07/18 Pulmonary Function Test Result Indications: Pre-op Interpretation Spirometry: There is no airflow limitation.There is borderline bronchodilator response (11% increase and 240cc in FEV1). Lung Volumes: Normal lung volumes Diffusion Capacity: Normal diffusion Airway Pressure: Normal airways resistance Impression Normal pulmonary function with a borderline positive bronchodilator response. Clinical Correlation therefore is recommended. ECHO- done at [facility] C/A/P done at [facility] no aneurysms MRI- Brain- [facility] No PRES on MRI Review of Systems All systems reviewed & are unremarkable except as noted in HPI and below PFSH All Active Problems (Updated 08/09/23 @ 11:06 by Lety Lizama DO) Skin lesion of left arm (Acute) History of colon polyps (Acute) Chronic nausea (Acute) Pulmonary hypertension (Acute) Diastolic dysfunction (Acute) Dilated aortic root (Acute) Atherosclerosis of aorta (Acute) Coronary artery calcification seen on CAT scan (Acute) CAD (coronary artery disease) (Chronic) Diverticulitis (Chronic) Atherosclerotic heart disease of [place] coronary artery without angina pectoris (Acute) Seizures (Acute) PRES (posterior reversible encephalopathy syndrome) (Acute) Abdominal pain (Acute) Medical History NSTEMI (non-ST elevated myocardial infarction) x2 2017 NIKKI (obstructive sleep apnea) On HS O2 3L COPD (chronic obstructive pulmonary disease) Vitamin D deficiency Tobacco abuse Postmenopausal osteoporosis Polyp of gallbladder Anxiety and depression Hyperlipidemia Heart disease GERD (gastroesophageal reflux disease) Essential hypertension Cyst, dermoid, face Constipation Chronic pain Hepatitis C Cerebral hemorrhage 2013 Cataract Arthritis Alcoholism remote Surgical History S/P cholecystectomy S/P ankle arthrodesis S/P shoulder surgery S/P hysterectomy S/P lumbar fusion S/P cervical spinal fusion S/P appendectomy H/O heart artery stent 2017 Family History Father Colon polyps Hypertension Heart disease Alcohol use disorder Mother Stroke Alcohol use disorder Son Alcohol use disorder Social History Smoking/Tobacco Use Status: Current every day Tobacco Type: cigarettes Smoking risk assessment performed?: Yes Alcohol Intake: current Alcohol Intake frequency: 0-2 drinks per day Alcohol type: beer Drug use: Daily Substance use type: marijuana Household members: family Housing: apartment Number of Children: 2 current occupation: Disabled Do you feel safe at home: Yes Do you feel safe in your relationship?: Yes Additional Social history: lives with son and grandkids Meds Allergies and Home Medications Allergies Allergy/AdvReac Type Severity Reaction Status Date / Time Sulfa (Sulfonamide Allergy Intermediate swelling Unverified 08/09/23 09:23 Antibiotics) of neck/itching sumatriptan [From Imitrex] Allergy Unknown bad Unverified 08/09/23 09:23 seiziure alprazolam Allergy pt denies Verified 08/09/23 09:23 ampicillin Allergy facial Verified 08/09/23 09:23 swelling, skin rash Home Medications Medication Instructions Recorded Confirmed Type fluoxetine 40 mg capsule (Prozac) 20 mg PO TID 12/08/15 08/09/23 History aspirin 81 mg chewable tablet 81 mg PO DAILY 06/09/21 08/08/23 History pregabalin 300 mg capsule 300 mg PO DAILY 06/09/21 08/09/23 History albuterol 90 mcg/actuation aerosol 90 mcg inhalation Q3H PRN PRN 09/28/22 08/09/23 History inhaler budesonide-formoterol HFA 80 2 puff inhalation BID 09/28/22 08/09/23 History mcg-4.5 mcg/actuation aerosol inhaler (Symbicort) losartan 25 mg tablet 50 mg PO DAILY 09/28/22 08/09/23 History metoprolol succinate 25 mg 25 mg PO DAILY 09/28/22 08/09/23 History tablet,extended release 24 hr naproxen 500 mg tablet 500 mg PO BID PRN 09/28/22 08/09/23 History rosuvastatin 10 mg tablet 10 mg PO DAILY 09/28/22 08/09/23 History trazodone 300 mg tablet 300 mg PO QHS 09/28/22 08/09/23 History loratadine 10 mg tablet (Allergy 10 mg PO DAILY PRN 04/21/23 08/09/23 History Relief (loratadine)) olanzapine 5 mg tablet 5 mg PO QHS 04/21/23 08/09/23 History omeprazole 40 mg capsule,delayed 40 mg PO DAILY 04/21/23 08/09/23 History release ondansetron HCl 8 mg tablet 8 mg PO Q8H PRN 04/21/23 08/09/23 History ropinirole 1 mg tablet 1 mg PO QHS 04/21/23 08/09/23 History Exam Const Other: PHYSICAL EXAM GENERAL APPEARANCE: Alert, healthy appearance, oriented, x 3,? in no acute distress HYDRATION: Well hydrated HEAD, EYES, EARS, NECK, THROAT: Head is normocephalic, pupils equal, round, reactive to light and accommodation, ocular movement intact, sclera clear and no jaundice. ?Dentition-poor/edentulous LUNGS: normal respiration/normal chest excursion. ?Clear to auscultation patrizia aterally. ?No wheeze. ?HEART: Regular rate and rhythm. no murmurs ABDOMEN: soft and non-tender to palpation.? Normal bowel sounds.? Time Spent Time spent with Patient: <40 minutes Time was spent: preparing to see the patient(eg.review tests), obtaining and/or reviewing separately otained hiistory, ordering medications,tests, procedures, referring, communicating with other health career technical counselor, indepentently interpreting results, counseling the patient and care coordination
--- NOTE | 2023-08-08 17:39 | W.COLOREPORT ---
Date of service: 08/09/23 Time of Service: 12:36 Colonoscopy Report Date of procedure: 08/09/23 Pre-op diagnosis general: hx of colon polyps/diarrhea/rectal bleeding/diverticula Post-op diagnosis procedure note: other (Polyps and montesinos diverticula) Surgeon: Lety Lizama Anesthesia Type: General:No Airway Estimated blood loss (mL): 2 Pathology: other Complications: None Disposition: same day Prep: Miralax/Dulcolax Retraction Time: 12 Procedure Description: After informed consent was obtained the patient was taken to the procedure room and placed in a left decubitous position. Monitors were applied and a time out was done. The patients name, date of , procedure, allergies to medications and metal in their body was reviewed. The patient was then sedated. Once sedated and comfortable a rectal exam was done. External exam was normal. Internal exam revealed a normal sphincter tone and no palpable masses. The scope was then introduced and retrofelexed. no internal hemorrhoids were identified. The scope was then advanced to the cecum without difficulty. The TI and appendiceal orifice were identified. The prep was BBPS 2 in all segments for total of 6. The scope was then slowly retracted over 12 minutes back into the rectum. She had several 5 mm flat polyps. One at 40 cm/x1 at 30 cm/and x2 in the rectum. These are all removed with a cold biting forcep. All specimens are retrieved and no bleeding is noted. She had a biopsy done at 90 cm / 40 cm and in the rectum. She has few small scattered diverticula throughout the entirety of the colon-pandiverticular disease. There are no signs of active bleeding or infection. The mucosa is pink and healthy with a normal vascular pattern the scope was removed and the patient was woken up and taken back to Same day surgery in stable condition. The patient tolerated the procedure well and there were no immediate complications. Follow up: The patient should follow up in ~7 years, path pending, unless they develop changes in bowel habits or other new gastrointestinal complaints. -Pt tolerated the procedure/anethesia, but has very poor pulmonary reserve and desaturates readily. We d/w importance of smoking cessation for her overall health.
--- NOTE | 2023-08-08 17:40 | ENDO_ITS ---
Date of service: 08/09/23 Time of Service: 12:30 Endoscopy Report DATE OF PROCEDURE: 08/09/23 PRE-OP DIAGNOSIS: abdominal/chronic intractible n/v POST-OP DIAGNOSIS: other (Signs of chronic Araya's) SURGEON: Lety Lizama ANESTHESIA TYPE: General:No Airway ESTIMATED BLOOD LOSS: 2 PATHOLOGY: other COMPLICATIONS: None DISPOSITION: same day PROCEDURE DESCRIPTION: After informed consent was obtained the patient was take to the procedure room and placed in a supine position. Monitors were applied and a time out was done. The patients name, date of , procedure type, allergies to medications and metal in their body was reviewed. A bite block was placed and the patient was sedated. Once sedated and comfortable the gastroscope was advanced through the oropharynx which was grossly normal into the esophagus. The proximal and mid- esophagus were normal. In the distal esophagus there was no: Varices/diverticula/stricture. There is some mild esophagitis and some changes consistent with chronic Araya's. There are 2 tongues of Araya's at the 5:00 in the 7 o'clock position less than 1 cm. There is a small island of Araya's at the 1 o'clock position. The scope was advanced into the stomach and through the pylorus into the 3rd portion of the duodenum. The duodenum was noted to be normal. Biopsies were done, all specimens are retrieved and no bleeding is noted. The scope was retracted back into the stomach and biopsies were done to rule out H. pylori. There were no ulcers/gastritis. The scope was retroflexed. The cardia and fundus were noted to be normal. There is no hiatal hernia noted. The scope was retracted back into the esophagus and biopsies were done of the GE junction to rule out Araya's. The Z line was irregular. The GE junction was at 38 cm. The scope was removed and the patient was woken up and taken back to [facility] in stable condition.
--- NOTE | 2023-08-08 17:41 | PDOC.DSDIS_ITS ---
Date of service: 08/09/23 Time of Service: 12:40 Discharge Plan Disposition Patient Disposition: Home Condition: Good Discharge Details Reason For Visit: stomach and colon scope Attending Provider: Lety Lizama Primary Care Provider: Asya Hand Home Meds and New Rx's Prescriptions: Continued fluoxetine [Prozac] 40 MG capsule 20 mg PO TID albuterol 90 mcg/actuation aerosol 90 mcg inhalation Q3H PRN PRN losartan 25 mg tablet 50 mg PO DAILY metoprolol succinate 25 mg tablet extended release 24 hr 25 mg PO DAILY naproxen 500 mg tablet 500 mg PO BID PRN rosuvastatin 10 mg tablet 10 mg PO DAILY budesonide-formoterol [Symbicort] 80-4.5 mcg/actuation HFA aerosol inhaler 2 puff inhalation BID trazodone 300 mg tablet 300 mg PO QHS omeprazole 40 mg capsule,delayed release(DR/EC) 40 mg PO DAILY olanzapine 5 mg tablet 5 mg PO QHS ropinirole 1 mg tablet 1 mg PO QHS Rx Instructions: administer 1-3 hours before bedtime loratadine [Allergy Relief (loratadine)] 10 mg tablet 10 mg PO DAILY PRN ondansetron HCl 8 mg tablet 8 mg PO Q8H PRN aspirin 81 mg tablet,chewable 81 mg PO DAILY pregabalin 300 mg capsule 300 mg PO DAILY Discontinued polyethylene glycol 3350 17 gram/dose powder 238 g PO ONCE Qty: 238 0RF Rx Instructions: take per colonoscopy instructions bisacodyl [Dulcolax (bisacodyl)] 5 mg tablet,delayed release (DR/EC) 5 mg PO ONCE Qty: 4 0RF Rx Instructions: take per colonoscopy instructions Discharge Instructions Additional Instructions: [facility] Colonoscopy Post- Op Instructions Instructions for Everyone who is given Anesthesia: For your safety, please do the following for the next twenty-four (24) hours: *Do Not operate a motor vehicle (car, truck, motorcycle, etc.) *Do Not drink alcoholic beverages or use any recreational drugs for the first 24 hours or while taking pain medications. The medications in your body may have a reaction that can be dangerous. *Do Not make any important decisions or sign any important papers. Findings: chronic reflux diverticula polyp Follow up: My office will send you a letter in 2 to 3 weeks time with the results of the pathology and when we want you to repeat your scopes 1. No lifting over 20 pounds or strenuous activity for the first 24 hours after your procedure. After 24 hours there are no restrictions on your activity but you may feel fatigued for a few days. 2. After you arrive home you may have a light meal and return to your normal diet as you can tolerate it without feeling sick to your stomach. 3. You may have a bloated, gaseous feeling in your belly (abdomen) after a colonoscopy. Passing gas and belching will help. Walking or lying down on your left side with your knees flexed may relieve the discomfort. Call the office at [phone] (Office) or [phone] (Hospital) right away if you notice any of the following: a.Vomiting of blood or ?coffee ground stools?. b.Rectal bleeding 1Tbsp, blood clots or continuous bleeding. c.Severe belly (abdominal) pain. d.A hard distended belly (abdomen) and an inability to pass gas. 4. Please don?t expect to have a normal BM (bowel movement) for 2-3 days after your procedure. 5. If there are questions regarding the findings of your procedure, please contact your doctor 6. If you are unable to contact your doctor with a problem, contact the hospital at [phone]. 7. Continue all your regular medications unless directed otherwise. I understand the above instructions and have no questions. Signature of Patient or Adult Escort Name of Responsible Adult Escort Signature of Nurse Date/Time Activity:: see above Diet:: see above DS: Diagnosis Discharge Diagnosis (1) Pulmonary hypertension: Status: Acute (2) Diastolic dysfunction: Status: Acute (3) Dilated aortic root: Status: Acute (4) Atherosclerosis of aorta: Status: Acute (5) CAD (coronary artery disease): Status: Chronic (6) Coronary artery calcification seen on CAT scan: Status: Acute (7) Diverticulitis: Status: Chronic (8) Atherosclerotic heart disease of [place] coronary artery without angina pectoris: Status: Acute (9) Seizures: Status: Acute (10) PRES (posterior reversible encephalopathy syndrome): Status: Acute (11) Abdominal pain: Status: Acute (12) NIKKI (obstructive sleep apnea): (13) COPD (chronic obstructive pulmonary disease): (14) Tobacco abuse: (15) Hepatitis C: (16) Chronic nausea: Status: Acute (17) History of colon polyps: Status: Acute Asessment and Plan: The patient is seen and examined after their colonoscopy.? The patient has been able to pass gas.? They are not having abdominal pain.? They have been able to tolerate liquids and a snack.? They do not have any nausea or vomiting.? They are not having any chest pain or shortness of breath.??? They are not having any rectal bleeding. Their vital signs have been stable-see nursing notes. We discussed findings during their colonoscopy, and any biopsies that were done/polyps that were removed. The patient will be sent a letter with any biopsy results, and when to repeat the colonoscopy.-see discharge instructions. Patient was given explicit instructions to follow-up regarding colonoscopy-refer to discharge instructions.? We reviewed resumption of medications. Patient verbalized understanding and discharged in stable and satisfactory condition- See nursing notes.
[2023-08-09] VITALS (7 sets, daily range): BP systolic 105–158; BP diastolic 61–89; PULSE 64–77; RESP 12–20; TEMP 36.3–36.8; O2SAT 59–97; BMI 28.5
[2023-08-09] MEDS: Lactated Ringers 1,000 ML 80 ML IV (09:48)
--- NOTE | 2023-08-09 10:10 | W.ANESPRE ---
General Info Date of Service Date Performed: 08/09/23 Height: 5 ft 7 in Weight: 82.8 kg Body Mass Index (BMI): 28.5 Surgical Procedure: Operation Date: 08/09/23 10:55 Proposed Procedure Side Surgeon p Colonoscopy/Gastroscopy Lety Lizama DO s Excision Lesion Posterior Upper Arm Left Lety Lizama DO Meds Allergies and Home Medications Allergies Allergy/AdvReac Type Severity Reaction Status Date / Time Sulfa (Sulfonamide Allergy Intermediate swelling Unverified 08/09/23 09:23 Antibiotics) of neck/itching sumatriptan [From Imitrex] Allergy Unknown bad Unverified 08/09/23 09:23 seiziure alprazolam Allergy pt denies Verified 08/09/23 09:23 ampicillin Allergy facial Verified 08/09/23 09:23 swelling, skin rash Home Medication Medication Instructions Recorded fluoxetine 40 mg capsule (Prozac) 20 mg PO TID 12/08/15 aspirin 81 mg chewable tablet 81 mg PO DAILY 06/09/21 pregabalin 300 mg capsule 300 mg PO DAILY 06/09/21 albuterol 90 mcg/actuation aerosol 90 mcg inhalation Q3H PRN PRN 09/28/22 inhaler budesonide-formoterol HFA 80 2 puff inhalation BID 09/28/22 mcg-4.5 mcg/actuation aerosol inhaler (Symbicort) losartan 25 mg tablet 50 mg PO DAILY 09/28/22 metoprolol succinate 25 mg 25 mg PO DAILY 09/28/22 tablet,extended release 24 hr naproxen 500 mg tablet 500 mg PO BID PRN 09/28/22 rosuvastatin 10 mg tablet 10 mg PO DAILY 09/28/22 trazodone 300 mg tablet 300 mg PO QHS 09/28/22 loratadine 10 mg tablet (Allergy 10 mg PO DAILY PRN 04/21/23 Relief (loratadine)) olanzapine 5 mg tablet 5 mg PO QHS 04/21/23 omeprazole 40 mg capsule,delayed 40 mg PO DAILY 04/21/23 release ondansetron HCl 8 mg tablet 8 mg PO Q8H PRN 04/21/23 ropinirole 1 mg tablet 1 mg PO QHS 04/21/23 Current Visit Medications: Current Medications Generic Name Dose Route Start Last Admin Trade Name Freq PRN Reason Stop Dose Admin Ringer's Solution 1,000 mls @ 80 mls/hr 08/09/23 06:00 08/09/23 09:48 IV 09/07/23 23:59 80 mls/hr INFUSION VIANEY Administration IV Miscellaneous Supplies 1 each 08/09/23 06:00 Iv Access IV 09/07/23 23:59 DIRECTED VIANEY Sodium Chloride 0 ml 08/09/23 06:00 Normal Saline Flush 10 Ml Syr IV 09/07/23 23:59 PRN PRN Sodium Chloride 0 ml 08/09/23 06:00 Normal Saline 10 Ml Vial IJ 09/07/23 23:59 DIRECTED PRN Sterile Water 0 ml 08/09/23 06:00 Water,Injection,Sterile 10 Ml Vial IJ 09/07/23 23:59 DIRECTED PRN PFSH Active Problems Active Problems: Problem Status Onset Code History of colon polyps Z86.010 Chronic nausea R11.0 Pulmonary hypertension I27.20 Diastolic dysfunction I51.89 Dilated aortic root I77.810 Atherosclerosis of aorta I70.0 Coronary artery calcification seen on CAT scan I25.10 CAD (coronary artery disease) I25.10 Diverticulitis K57.92 Atherosclerotic heart disease of [place] coronary artery without angina pectoris I25.10 Seizures R56.9 PRES (posterior reversible encephalopathy syndrome) I67.83 Abdominal pain R10.9 Medical History Medical History NSTEMI (non-ST elevated myocardial infarction) x2 2017 NIKKI (obstructive sleep apnea) On HS O2 3L COPD (chronic obstructive pulmonary disease) Vitamin D deficiency Tobacco abuse Postmenopausal osteoporosis Polyp of gallbladder Anxiety and depression Hyperlipidemia Heart disease GERD (gastroesophageal reflux disease) Essential hypertension Cyst, dermoid, face Constipation Chronic pain Hepatitis C Cerebral hemorrhage 2013 Cataract Arthritis Alcoholism remote Medical History Comments:: pt had a sip of water at 07:30am today 08/08/23 @ 6 cigarettes Surgical History Surgical History S/P cholecystectomy S/P ankle arthrodesis S/P shoulder surgery S/P hysterectomy S/P lumbar fusion S/P cervical spinal fusion S/P appendectomy H/O heart artery stent 2017 Tobacco Smoking/Tobacco Use Status: Current every day Tobacco Type: cigarettes Alcohol Alcohol Intake: current Alcohol intake frequency: 0-2 drinks per day Alcohol type: beer Substance Use Substance use: Daily Substance use type: marijuana Vital Signs and Lab Results Vital Signs Most Recent Vital Signs in EMR: Most Recent Vital Signs Temp Pulse Resp BP Pulse Ox 36.3 C L 77 18 158/89 H 95 08/09/23 09:25 08/09/23 09:25 08/09/23 09:25 08/09/23 09:25 08/09/23 09:25 Lab Results Blood Type / Crossmatch: No Data to Display Complete Blood Count: No Data to Display Complete Metabolic Panel: No Data to Display Liver Function Panel: No Data to Display Coagulation Panel: No Data to Display Cardiac Panel: No Data to Display Arterial Blood Gas: No Data to Display Venous Blood Gas: No Data to Display Pancreas Panel: No Data to Display Thyroid Panel: No Data to Display Infectious Disease: No Data to Display Blood Cultures: No Data to Display Toxicology Panel: No Data to Display Imaging and Studies Imaging and Studies Study information below may be from another EMR and interpreted by another provider. Please see original notes in EMR for more complete details. EKG Summary: EKG PATIENT NAME: Sahra Williamson UNIT #: [id number] ORDERING PROVIDER: Virginia Bowen PRIMARY CARE PROVIDER: LEANN LEUNG DATE/TIME OF SERVICE: 06/09/21 1103 : 1965 PERFORMING LOCATION: ER APPROVED REPORT Exam: Resting ECG Reason for Exam: Chest pain Patient Location: E HR:61 bpm ECG Measurements Heart Rate 61 AXIS PA 163 P 38 QRSd 96 QRS 3 QT 450 T30 QTc 452 Conclusion Sinus rhythm...normal P axis, V-rate 60- 99. Sinus. No STEMI. I have reviewed and interpreted ECG and agree with software generated interpretation. <Electronically signed by YAKOV MATHEW DO in [facility]> E-Sign Date: 06/09/21 E-Sign Time: 1137 ADDENDUM APPROVED REPORT Exam: Resting ECG Reason for Exam: Chest pain Patient Location: E HR:61 bpm ECG Measurements Heart Rate 61 AXIS PA 163 P 38 QRSd 96 QRS 3 QT 450 T30 QTc 452 Conclusion Sinus rhythm...normal P axis, V-rate 60- 99. Sinus. No STEMI. I have reviewed and interpreted ECG and agree with software generated interpretation. I have reviewed and I agree with the emergency room physician's ECG interpretation. Electronically signed by: <Electronically signed by Emily Huffman M.D. in [facility]> 06/11/21 0933 Cosigned by: Pulmonary Function Summary: Pulmonary Function Test PATIENT NAME: Sahra Williamson UNIT #: [id number] ADMITTING PROVIDER: Sharon Arriola M.D. PRIMARY CARE PROVIDER: TAWANDA MARTIN DATE OF ADMIT: 07/08/23 : 1965 Date of service: 07/08/23 Time of Service: 10:02 Pulmonary Function Test Result Indications: Pre-op Interpretation Spirometry: There is no airflow limitation.There is borderline bronchodilator response (11% increase and 240cc in FEV1). Lung Volumes: Normal lung volumes Diffusion Capacity: Normal diffusion Airway Pressure: Normal airways resistance Impression Normal pulmonary function with a borderline positive bronchodilator response. Clinical Correlation therefore is recommended. cc: Dictated by: SHARON ARRIOLA MD Dictated: 07/08/23 Time: 154 <Electronically signed by Sharon Arriola M.D.> Date: 07/08/23 154 Date: Date: Transcribed Date: 07/08/23 Transcribed Time: 1544 By: RINKU This is privileged, confidential information, intended only for the provider named. Any use or distribution by any person other than this provider is strictly prohibited. If you receive this report in error, please notify us immediately at [phone] and return the original report to us at the address above. Thank you. Anesthesia Assessment and Plan Anesthesia History Personal History: No History of Anesthesia Complications Family History: No Family History of Anesthesia Complications Exercise Tolerance Exercise Tolerance: Metabolic Equivalents>4 Pertinent Negatives Pertinent Negatives: No Symptoms of GERD (Reports stomach pain but no reflux) Cardiac & Pulmonary Exam Cardiac Exam: Normal S1/S2 Heart Sounds Pulmonary Exam: Wheezing Present (Expiratory) Implantable Cardiac Device Does patient have a Pacemaker or an ICD?: No Airway Exam Known Difficult Airway: No Mallampati Class: 2 Mouth Opening: Normal (> 3cm) Thyromental Distance: Greater than 3 cm Neck Range of Motion: Full ROM Neck Circumference: Normal Teeth Condition: Normal Dentition ASA Classification ASA Score: ASA 3 Emergency Case?: No NPO Status NPO Status: NPO Clears >2 hours, Solids >8 hours Anesthesia Plan Resuscitation Status: Full Code Anesthesia Technique: General Anesthesia Airway Planned: Endotracheal Tube Monitors Used: Standard Monitors
--- NOTE | 2023-08-09 11:10 | ROE_ITS ---
Date of service: 08/09/23 Time of Service: 12:30 Operative Note Operative Note DATE OF PROCEDURE: 08/09/23 PRE-OP DIAGNOSIS: Atypical lesion left upper posterior arm/ hx of sun damage & hx of chronic dermatillomania POST-OP DIAGNOSIS: same (path pd ) PROCEDURE: Full-thickness lesion excision SURGEON: Lety Lizama ANESTHESIA TYPE: Local By Surgeon and General LMA/ETT Refer to Anesthesia Record ESTIMATED BLOOD LOSS: 2 PATHOLOGY: other (Black sutures placed at the 12 o'clock position) COMPLICATIONS: None Patient was transported to: same day Patient's condition: stable Procedure Description: Procedure Name Lesion [id number] PMx, PSx, medications, allergies, ?and social Hx are reviewed and updated in [facility] Any imagining associated with this visit was reviewed. Indication The patient is seen at the request of the PCP. The pt presents for lesion removal. We have discussed this procedure, including option of not performing surgery, technique of surgery and potential for: bleeding/infection/scarring/need for removal of more tissue/ reaction to local anethesetics or sutures material/poor cosmesis/reoccurrence, and post-procedural care that is required, as well as a multi-modality pain plan.? Post-procedural pain/swelling/bruising is normal. Patient is able to do post procedural dressing changes and understands what is expected. OBJECTIVE: Patient appears well. Vitals are normal. The patient has no allergies to lidocaine or suture material. The patient not on any blood thinners.? They are not on steroids are any other immunosuppressants. Informed consent was obtained prior to beginning the procedure. The area was marked and doubled checked/ID?ed with the pt. PAUSE for the CAUSE completed. The risks of lesion removal include but are not limited to: bleeding, infection, scarring, reoccurrence, and the need for removal of more tissue, and complications of anesthesia. Location: ASSESSMENT: The lesion is 2x.75_Cm in size. Differential diagnosis includes:_Skin cancer versus chronically indurated lesion Location: LEFT upper posterior arm Procedural Sedation 1% buffered lidocaine 20_cc Technique Patient appears well. Vitals are normal. The patient has no allergies to lidocaine or suture material. The patient not on any blood thinners. The pt has no history of keloids or problems with healing in the past. Skin: see HPI Informed consent was obtained prior to beginning the procedure. The area was marked and doubled checked/ID?ed with the pt. PAUSE for the CAUSE completed. The risks of lesion removal include but are not limited to: bleeding, infection, scarring, reoccurrence, and the need for removal of more tissue, and complications of anesthesia. After informed consent was obtained, using Chloroprep for cleansing and 1% Buffered Lidocaine for anesthetic; using sterile technique, PROCEDURE:_Excision down to the fat was performed. The lesion is 2 x 0.75_cm in size. The incision was 3_Cm long. The incision is closed w/ interrupted sutures of 3-0 prolene. An Antibiotic salve and sterile dressing is applied, and wound care instructions provided. The procedure was well tolerated without complications. Plan: The patient will follow up in 10 days for suture removal and review of pathology. If there is any bleeding/redness/drainage/swelling/pain or tenderness- call the clinic. Patient was given instructions in wound care, activity, warning signs, appointment for follow up. If the patient has any questions or concerns, should call our clinic or go to ER/urgent care after hours. Patient expressed understanding in directions for care and was given a written copy of instructions. Rx=see [facility], if appropriate Pt tolerated the procedure well without complications Patient was given instruction in activity restrictions, wound care and dressing changes. Medication usage, diet, warning signs to look for (and what to do if they occur), and an appointment for follow-up. Wound Care Instruction Pain Control Use ice!? Ice keeps the swelling down and swelling is what causes pain.? Never apply ice directly to the skin.? Wrap it in a towel or cloth.? Apply ice 20 minutes on and 20 minutes off for pain control.? Use as needed. Take Tylenol 500 mg by mouth with food every 4 hours as needed for pain. Or ibuprofen 600 mg by mouth with food every 6 hours as needed for pain.? Do not take Tylenol if you have a history of heavy drinking, hepatitis C or liver problems.? Do not take ibuprofen if you have a history of stomach ulcers/problems, bleeding problem or kidney issues. ? Always wash your hands before touching your incision. ? Keep the incision clean, dry, and out of water, keep the incision out of water. ? Do not to pick at the scabs. Scabs help protect the wound. ? You can take a shower in 24 hours and wash the incision with soap and water. Pat dry/don?t scrub. It?s OK to wash around the incision. But don?t spray water directly on it. ? Pat stitches dry if they get wet. Don't rub. ? Check the incision site daily for pain, redness, drainage, swelling, or separation of the incision edges. ? Make sure any clothing that touches the incision is loose-fitting. This will prevent rubbing. If the incision is on the head, keep your child from wearing caps or other head coverings. These may rub against the incision. As your incision heals, the skin may appear pink or red. It may also feel slightly bumpy or raised. This is called a healing ridge. Over time, the color should fade and the raised skin will become less noticeable. When to seek medical care Call your healthcare provider right away if you have any of these: ? More pain, redness, swelling, bleeding, or foul-smelling discharge around the incision area ? Fever of 101?F (38.3?C) or higher, or as directed by your child's healthcare provider ? Shaking chills ? Vomiting or nausea that doesn?t go away ? Numbness, coldness, or tingling around the incision area, or changes in skin color ? Opening of the sutures or wound -Stitches or joel that come apart or fall out or surgical tape falls off before 7 days, or as directed by your healthcare provider ?[facility]: [phone]
--- NOTE | 2023-08-09 11:45 | BOWEL_PTH ---
PATIENT: Sahra Williamson LOC: [facility] U#:[id number] AGE/SX: 58/F ROOM: RE08/09/[address]: Lety Lizama : 1965 BED: DIS: 08/09/2023 SPEC #: [id number] RECD: 08/09/23 13:04 STATUS: [facility] #: [id number] BRUNO: 08/09/23 11:[address]: Lety Lizama DEPT: Surgical Specimen RECD BY: Loraine Guajardo ENTERED: 08/09/23 13:07 SP TYPE: Bowel OTHR DR: Asya Hand Tissues: 1 - BIOPSY BOWEL 2 - BIOPSY BOWEL 3 - STOMACH BIOPSY 4 - STOMACH BIOPSY 5 - ESOPHAGUS BIOPSY 6 - ESOPHAGUS BIOPSY 7 - SKIN BIOPSY(SHAVE/PUNCH) 8 - BIOPSY BOWEL 9 - BIOPSY BOWEL 10 - BIOPSY BOWEL 11 - BIOPSY BOWEL 12 - BIOPSY BOWEL Procedures: GROSS AND MICRO LEVEL 4 GROSS AND MICRO LEVEL 3 Comments: [id number]
[2023-08-09] MEDS: EPINEPHrine 10 MG/10 ML ML (11:50)
[2023-08-09] MEDS: Bupivacaine 0.25% Pres-Free 30 ML VIAL (11:50)
--- NOTE | 2023-08-09 12:47 | PDOC.DSDIS_ITS ---
Date of service: 08/09/23 Time of Service: 12:48 Discharge Plan Disposition Patient Disposition: Home Condition: Good Discharge Details Reason For Visit: stomach and colon scope Attending Provider: Lety Lizama Primary Care Provider: Asya Hand Home Meds and New Rx's Prescriptions: Continued fluoxetine [Prozac] 40 MG capsule 20 mg PO TID albuterol 90 mcg/actuation aerosol 90 mcg inhalation Q3H PRN PRN losartan 25 mg tablet 50 mg PO DAILY metoprolol succinate 25 mg tablet extended release 24 hr 25 mg PO DAILY naproxen 500 mg tablet 500 mg PO BID PRN rosuvastatin 10 mg tablet 10 mg PO DAILY budesonide-formoterol [Symbicort] 80-4.5 mcg/actuation HFA aerosol inhaler 2 puff inhalation BID trazodone 300 mg tablet 300 mg PO QHS omeprazole 40 mg capsule,delayed release(DR/EC) 40 mg PO DAILY olanzapine 5 mg tablet 5 mg PO QHS ropinirole 1 mg tablet 1 mg PO QHS Rx Instructions: administer 1-3 hours before bedtime loratadine [Allergy Relief (loratadine)] 10 mg tablet 10 mg PO DAILY PRN ondansetron HCl 8 mg tablet 8 mg PO Q8H PRN aspirin 81 mg tablet,chewable 81 mg PO DAILY pregabalin 300 mg capsule 300 mg PO DAILY Discontinued polyethylene glycol 3350 17 gram/dose powder 238 g PO ONCE Qty: 238 0RF Rx Instructions: take per colonoscopy instructions bisacodyl [Dulcolax (bisacodyl)] 5 mg tablet,delayed release (DR/EC) 5 mg PO ONCE Qty: 4 0RF Rx Instructions: take per colonoscopy instructions Discharge Instructions Additional Instructions: [facility] Colonoscopy Post- Op Instructions Instructions for Everyone who is given Anesthesia: For your safety, please do the following for the next twenty-four (24) hours: *Do Not operate a motor vehicle (car, truck, motorcycle, etc.) *Do Not drink alcoholic beverages or use any recreational drugs for the first 24 hours or while taking pain medications. The medications in your body may have a reaction that can be dangerous. *Do Not make any important decisions or sign any important papers. Findings: chronic reflux diverticula polyp Follow up: 08/22 @ 9am My office will send you a letter in 2 to 3 weeks time with the results of the pathology and when we want you to repeat your scopes 1. No lifting over 20 pounds or strenuous activity for the first 24 hours after your procedure. After 24 hours there are no restrictions on your activity but you may feel fatigued for a few days. 2. After you arrive home you may have a light meal and return to your normal d iet as you can tolerate it without feeling sick to your stomach. 3. You may have a bloated, gaseous feeling in your belly (abdomen) after a colonoscopy. Passing gas and belching will help. Walking or lying down on your left side with your knees flexed may relieve the discomfort. Call the office at [phone] (Office) or [phone] (Hospital) right away if you notice any of the following: a.Vomiting of blood or ?coffee ground stools?. b.Rectal bleeding 1Tbsp, blood clots or continuous bleeding. c.Severe belly (abdominal) pain. d.A hard distended belly (abdomen) and an inability to pass gas. 4. Please don?t expect to have a normal BM (bowel movement) for 2-3 days after your procedure. 5. If there are questions regarding the findings of your procedure, please contact your doctor 6. If you are unable to contact your doctor with a problem, contact the hospital at [phone]. 7. Continue all your regular medications unless directed otherwise. I understand the above instructions and have no questions. Signature of Patient or Adult Escort Name of Responsible Adult Escort Signature of Nurse Date/Time Activity:: see above Diet:: see above DS: Diagnosis Discharge Diagnosis (1) Pulmonary hypertension: Status: Acute (2) Diastolic dysfunction: Status: Acute (3) Dilated aortic root: Status: Acute (4) Atherosclerosis of aorta: Status: Acute (5) CAD (coronary artery disease): Status: Chronic (6) Coronary artery calcification seen on CAT scan: Status: Acute (7) Diverticulitis: Status: Chronic (8) Atherosclerotic heart disease of [place] coronary artery without angina pectoris: Status: Acute (9) Seizures: Status: Acute (10) PRES (posterior reversible encephalopathy syndrome): Status: Acute (11) Abdominal pain: Status: Acute (12) NIKKI (obstructive sleep apnea): (13) COPD (chronic obstructive pulmonary disease): (14) Tobacco abuse: (15) Hepatitis C: (16) Chronic nausea: Status: Acute (17) History of colon polyps: Status: Acute
[2023-08-09] MEDS: Acetaminophen 500 MG TAB 1000 MG PO (13:01)
--- NOTE | 2023-08-09 13:06 | W.ANESPOSTOP ---
Postoperative Evaluation Date, Time and Location Date Performed: 08/09/23 Time Performed: 12:55 Patient Location: PACU Vital Signs Most Recent Imported Vital Signs: Most Recent Vital Signs Temp Pulse Resp BP Pulse Ox 36.6 C 64 18 110/81 94 08/09/23 12:55 08/09/23 12:55 08/09/23 12:55 08/09/23 12:55 08/09/23 12:55 Pain Score Most Recent Pain Score: Most Recent Pain Score Pain Level 0 08/09/23 12:55 Assessment Mental Status: Awake (Alert & Oriented to Patient Baseline) Airway and Respiratory Function: Patent airway with normal (patient baseline) respiratory exam Cardiovascular Function: Hemodynamically Stable Hydration Status: Adequately Hydrated Nausea & Vomiting: No Nausea or Vomiting Pain: Pt. Denies Any Pain Peripheral Nerve Block: Patient did not receive a nerve block
== END 2023-08-09 13:40 | disposition home or self-care (01) ==
LOC: SUR 09:05
PROVIDERS: PCP Internal Medicine; Visit Provider Surgery
PROC: (CPT 45380; principal; 2023-08-09 10:45)
PROC: (CPT 45380; 2023-08-09 10:45)
DX: L28.0 Lichen simplex chronicus (principal); K62.5 Hemorrhage of anus and rectum; R19.7 Diarrhea, unspecified; K57.30 Diverticulosis of large intestine without perforation or abscess without bleeding; K63.5 Polyp of colon; K22.70 Barrett's esophagus without dysplasia; Z86.010 Personal history of colon polyps; K20.90 Esophagitis, unspecified without bleeding
CPT/HCPCS: 45380; 43239; 11402; 88305; 88304; J2250

== ENCOUNTER 2024-04-13 10:50 | Emergency (ER) | payer OTHER, MEDICAID, SELFPAY ==
[2024-04-13 10:57] VITALS: BP 124/97; PULSE 63; RESP 18; TEMP 36.5; O2SAT 96
--- OUTSIDE RECORDS SUMMARY | 2024-04-13 11:17 | XMS_ITS | Continuity of Care Document ---
Author Organization [facility] Address [address] [place] [address] Care Team Providers Care Artist Suspect Name Role Phone Asya Hand Primary Care Physician Encounter [id number] Date(s): 06/14/23 - 07/23/[address] [id number] Discharge Disposition: Home or Self Care Attending [...] by not to take due to [facility] Immunizations [...] DAY, # 90 tab, 3 Refill(s), Pharmacy: [id number], 170.18, cm, 09/16/22 6:46:00 EST, Height/Length Dosing, 94.3, kg, 09/16/22 6:46:00 EST, Weight Dosing Start Date: 10/12/22 Status: Ordered diphenoxylate-atropine 2.5 mg-0.025 mg oral tablet 30 EA, TAKE ONE TABLET BY MOUTH EVERY 6 HOURS NEEDED, 0 Refill(s) Start Date: 11/09/22 Status: Ordered FLUoxetine 20 mg oral capsule 3 cap, Oral, Daily, # 270 cap, 3 Refill(s), Pharmacy: [id number], 170, cm, 03/06/22 13:18:00 EDT, Height/Length Dosing, 86, kg, 03/06/22 13:18:00 EDT, Weight Dosing Start Date: 07/06/22 Status: Ordered hydrocortisone 2.5% topical cream See Instructions, PRN rash, apply in a thin film to the affected skin and rub in gently and completely, use no more than 3 times daily, # 454 g, 1 Refill(s), Pharmacy: [id number], 170.18, cm, 09/16/22 6:46:00 EST, Height/Length Dosing, 94.3, kg, 09/16/22 6:46:00 EST, Weight Dosing Start Date: 09/24/22 Status: Ordered Incruse Ellipta 62.5 mcg/inh inhalation powder 1 EA, Inhale, every 24 hr, doses should be taken at least 24 hours apart, # 30 EA, 11 Refill(s), Pharmacy: [id number] Start Date: 02/11/22 Stop Date: 02/06/23 Status: Ordered Keppra 250 mg oral tablet 500 mg = 2 tab, Oral, BID, # 120 tab, 5 Refill(s), Pharmacy: [facility], 170.18, cm, 09/16/22 6:46:00 EST, Height/Length Dosing, 94.3, kg, 09/16/22 6:46:00 EST, Weight Dosing Start Date: 09/19/22 Stop Date: 03/18/23 Status: Ordered losartan 50 mg oral tablet 50 mg = 1 tab, Oral, Daily, # 90 tab, 3 Refill(s), Pharmacy: [facility], 170.18, cm, 09/16/22 6:46:00 EST, Height/Length Dosing, 94.3, kg, 09/16/22 6:46:00 EST, Weight Dosing Start Date: 09/19/22 Stop Date: 09/14/23 Status: Ordered Lyrica 300 mg oral capsule 300 mg = 1 cap, Oral, Daily, # 28 cap, 1 Refill(s), Pharmacy: [facility], 170, cm, 03/06/22 13:18:00 EDT, Height/Length Dosing, 86, kg, 03/06/22 13:18:00 EDT, Weight Dosing Start Date: 08/17/22 Stop Date: 10/12/22 Status: Ordered metoprolol succinate 25 mg oral tablet, extended release 25 mg = 1 tab, Oral, Daily, # 90 tab, 3 Refill(s), Pharmacy: [facility], 170.18, cm, 09/16/22 6:46:00 EST, Height/Length [...] Daily, # 14 patches, 1 Refill(s), Pharmacy: [facility], 170.18, cm, 09/16/22 6:46:00 EST, Height/Length Dosing, 94.3, kg, 09/16/22 6:46:00 EST, Weight Dosing Start Date: 09/19/22 Stop Date: 10/17/22 Status: Ordered omeprazole 20 mg oral delayed release capsule 1 cap, Oral, Daily, # 90 cap, 3 Refill(s), Pharmacy: [facility], 170, cm, 03/06/22 13:18:00 EDT, Height/Length [...] Daily, # 90 tab, 3 Refill(s), Pharmacy: [facility], 170, cm, 03/06/22 13:18:00 EDT, Height/Length Dosing, 86, kg, 03/06/22 13:18:00 EDT, Weight Dosing Start Date: 07/22/22 Status: Ordered [facility], [facility], Supply, See instructions, # 1 EA, 0 Refill(s) Start Date: 05/21/22 Status: Ordered Senna 8.6 mg oral tablet See Instructions, TAKE TWO TABLETS BY MOUTH EVERY DAY NEEDED FOR 14 DAYS, # 28 tab, 3 Refill(s),Pharmacy: [id number], 170, cm, 03/06/22 13:18:00 EDT, Height/Length [...] BEDTIME, # 90 tab, 0 Refill(s), Pharmacy: [facility], 170, cm, 03/06/22 13:18:00 EDT, Height/Length [...] pain Confirmed Active Clostridioides difficile 1 Confirmed 8/9/23 Active Constipation Confirmed 06/17/21 Active Coronary arteriosclerosis [...] Source Comment: Overview[place]05/[place] [facility] [place] mid [...] Only Member Role: Informed Provider Address: Address: [address] [address]- Care Team Related Persons Name: PHANI LIPSCOMB Address: Home Name: DENITA RAO Address: Home
--- OUTSIDE RECORDS SUMMARY | 2024-04-13 11:17 | XMS_ITS | Continuity of Care Document ---
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 Name Role Phone Asya Hand Primary Care Physician Encounter [facility] Date(s): 03/14/24 - 03/14/24 [facility] [address] [place] [address] Encounter Diagnosis Dehydration(Discharge Diagnosis) - 03/14/24 Heat exhaustion(Discharge Diagnosis) - 03/14/24 Hyponatremia(Discharge Diagnosis) - 03/14/24 Discharge Disposition: Home or Self Care Attending Physician: Garett Pickard MD Admitting Physician: Garett Pickard MD Allergies, Adverse Reactions, Alerts Substance Reaction Severity Status codeine Itching Moderate Active amoxicillin 1 Unknown Unknown Active azithromycin 2 Itching Moderate Active iodinated radiocontrast dyes 3 Unknown Active SUMAtriptan 4 Unknown Active ampicillin 5 Facial swelling Skin rash Moderate Active penicillins 6 Unknown Active sulfa drugs Facial swelling Skin rash Moderate Active ALPRAZolam 7 Unknown Active 1Outside Source Comment: Unknown pt unsure 2patient states on 03/04/2022 that she is not allergice, just finished taking it and wants it off her allergy list 3had side effect to IV contrast used for heard testing 5 years ago ( NAUSEA),, pt tells they dont use that contrast any more and had other CT po and IV contrast since with no reaction 4Pt. instructed by MD not to take due to ICH 5Pt states as a child 6as a child 7Pt states she's not allergic to this medication 12/11/18 Assessment and Plan Future Appointments Immunizations Given [...] DAY, # 90 tab, 3 Refill(s), [facility]: [id number], 170.18, cm, 09/16/22 6:46:00 EST, Height/Length Dosing, 94.3, kg, 09/16/22 6:46:00 EST, Weight Dosing Start Date: 10/12/22 Status: Ordered diphenoxylate-atropine 2.5 mg-0.025 mg oral tablet 30 EA, TAKE ONE TABLET BY MOUTH EVERY 6 HOURS NEEDED, 0 Refill(s) Start Date: 11/09/22 Status: Ordered FLUoxetine 20 mg oral capsule 3 cap, Oral, Daily, # 270 cap, 3 Refill(s), Pharmacy: [facility] #58, 170, cm, 03/06/22 13:18:00 EDT, Height/Length Dosing, 86, kg, 03/06/22 13:18:00 EDT, Weight Dosing Start Date: 07/06/22 Status: Ordered hydrocortisone 2.5% topical cream See Instructions, PRN rash, apply in a thin film to the affected skin and rub in gently and completely, use no more than 3 times daily, # 454 g, 1 Refill(s), Pharmacy: [facility] #58, 170.18, cm, 09/16/22 6:46:00 EST, Height/Length Dosing, 94.3, kg, 09/16/22 6:46:00 EST, Weight Dosing Start Date: 09/24/22 Status: Ordered Incruse Ellipta 62.5 mcg/inh inhalation powder 1 EA, Inhale, every 24 hr, doses should be taken at least 24 hours apart, # 30 EA, 11 Refill(s), Pharmacy: [facility] #58 Start Date: 02/11/22 Stop Date: 02/06/23 Status: Ordered Keppra 250 mg oral tablet 500 mg = 2 tab, Oral, BID, # 120 tab, 5 Refill(s), Pharmacy: [facility] #58, 170.18, cm, 09/16/22 6:46:00 EST, Height/Length Dosing, 94.3, kg, 09/16/22 6:46:00 EST, Weight Dosing Start Date: 09/19/22 Stop Date: 03/18/23 Status: Ordered losartan 50 mg oral tablet 50 mg = 1 tab, Oral, Daily, # 90 tab, 3 Refill(s), Pharmacy: [facility] #58, 170.18, cm, 09/16/22 6:46:00 EST, Height/Length Dosing, 94.3, kg, 09/16/22 6:46:00 EST, Weight Dosing Start Date: 09/19/22 Stop Date: 09/14/23 Status: Ordered Lyrica 300 mg oral capsule 300 mg = 1 cap, Oral, Daily, # 28 cap, 1 Refill(s), Pharmacy: [facility] #58, 170, cm, 03/06/22 13:18:00 EDT, Height/Length Dosing, 86, kg, 03/06/22 13:18:00 EDT, Weight Dosing Start Date: 08/17/22 Stop Date: 10/12/22 Status: Ordered metoprolol succinate 25 mg oral tablet, extended release 25 mg = 1 tab, Oral, Daily, # 90 tab, 3 Refill(s), Pharmacy: [facility] #58, 170.18, cm, 09/16/22 6:46:00 EST, Height/Length [...] Daily, # 14 patches, 1 Refill(s), Pharmacy: [facility] #58, 170.18, cm, 09/16/22 6:46:00 EST, Height/Length Dosing, 94.3, kg, 09/16/22 6:46:00 EST, Weight Dosing Start Date: 09/19/22 Stop Date: 10/17/22 Status: Ordered omeprazole 20 mg oral delayed release capsule 1 cap, Oral, Daily, # 90 cap, 3 Refill(s), Pharmacy: [facility] #58, 170, cm, 03/06/22 13:18:00 EDT, Height/Length [...] Daily, # 90 tab, 3 Refill(s), Pharmacy: [facility] #58, 170, cm, 03/06/22 13:18:00 EDT, Height/Length Dosing, 86, kg, 03/06/22 13:18:00 EDT, Weight Dosing Start Date: 07/22/22 Status: Ordered Send to LURAY Send to NALINI, Send to NALINI, Supply, See instructions, # 1 EA, 0 Refill(s) Start Date: 05/21/22 Status: Ordered Senna 8.6 mg oral tablet See Instructions, TAKE TWO TABLETS BY MOUTH EVERY DAY NEEDED FOR 14 DAYS, # 28 tab, 3 Refill(s),Pharmacy: [facility] #58, 170, cm, 03/06/22 13:18:00 EDT, Height/Length [...] BEDTIME, # 90 tab, 0 Refill(s), Pharmacy: [facility] #58, 170, cm, 03/06/22 13:18:00 EDT, Height/Length [...] Source Comment: Overview: 02/05/2016 [place] [facility] [place] LAD mid 50%, OM1 long 40%, RCA [...] 2Mild Gastritis Results Laboratory List Name Date Troponin-I 03/14/24 CBC w/ Diff 03/14/24 Comprehensive Metabolic Panel (CMP) 03/14 Magnesium Level 03/14/24 Troponin-I 03/14/24 Automated Diff 03/14/24 Most recent to oldest [Reference Range]: 1 2 WBC [5.0-10.0 x10^3/mcL] 9.0 x10^3/mcL (03/14/24 4:32 AM) RBC [4.1-5.3 x10^6/mcL] 5.3 x10^6/mcL (03/14/24 4:32 AM) Neutro Auto [40.0-75.0 %] 50.2 % (03/14/24 4:32 AM) Lymph Auto [20.0-50.0 %] 38.1 % (03/14/24 4:32 AM) [place] Auto [2.0-15.0 %] 9.4 % (03/14/24 4:32 AM) Basophil Auto [0.0-1.0 %] 0.7 % (03/14/24 4:32 AM) BUN [7-18 mg/dL] 10 mg/dL (03/14/24 4:32 AM) Glucose Level [74-106 mg/dL] 82 mg/dL (03/14/24 4:32 AM) Potassium Level [3.5-5.1 mmol/L] 4.1 mmo l/L (03/14/24 4:32 AM) MCV [80.0-96.0 fL] 86.5 fL (03/14/24 4:32 AM) AST [15-37 unit/L] 44 unit/L *HI* (03/14/24 4:32 AM) ALT [14-59 unit/L] 32 unit/L (03/14/24 4:32 AM) MCHC [31.0-35.0 g/dL] 35.4 g/dL *HI* (03/14/24 4:32 AM) Troponin-I [0.0-51.4 pg/mL] 5.7 pg/mL (03/14/24 6:10 AM) <5.0 pg/mL (03/14/24 4:32 AM) Sodium Level [136-145 mmol/L] 127 mmol/L *LOW* (03/14/24 4:32 AM) Hct [37.0-47.0 %] 46.1 % (03/14/24 4:32 AM) Calcium Level [8.5-10.1 mg/dL] 9.8 mg/dL (03/14/24 4:32 AM) Albumin Level [3.4-5.0 g/dL] 3.8 g/dL (03/14/24 4:32 AM) Protein Total [6.4-8.2 g/dL] 8.3 g/dL *HI* (03/14/24 4:32 AM) MCH [26.0-32.0 pg] 30.6 pg (03/14/24 4:32 AM) Magnesium Level [1.8-2.4 mg/dL] 2.0 mg/d L (03/14/24 4:32 AM) Neutro Absolute 4.5 x10^3/mcL *NA* (03/14/24 4:32 AM) Bilirubin Total [0.2-1.0 mg/dL] 0.9 mg/d L (03/14/24 4:32 AM) Hgb [12.0-16.0 g/dL] 16.3 g/dL *HI* (03/14/24 4:32 AM) Alk Phos [46-146 unit/L] 137 unit/L (03/14/24 4:32 AM) Platelets [130-450 x10^3/mcL] 238 x10^3/ mcL (03/14/24 4:32 AM) CO2 [21-32 mmol/L] 26 mmol/L (03/14/24 4:32 AM) eGFR Non-AA [>=60] 58 *LOW* (03/14/24 4:32 AM) eGFR AA [>=60] 58 *LOW* (03/14/24 4:32 AM) Chloride Level [98-107 mmol/L] 90 mmol/L *LOW* (03/14/24 4:32 AM) RDW-CV [11.5-14.5 %] 13.0 % (03/14/24 4:32 AM) Imm Gran Auto [0.0-0.9 %] 0.2 % (03/14/24 4:32 AM) Slide Review Not Indicated (03/14/24 4:32 AM) Creatinine Level [0.55-1.02 mg/dL] 1.10 mg/dL *HI* (03/14/24 4:32 AM) Eos, Auto [1.0-6.0 %] 1.4 % (03/14/24 4:32 AM) Vital Signs Most recent to oldest [Reference Range]: 1 2 3 Temperature Temporal Artery [36-38 Deg C] 36.1 Deg C (03/14/24 7:45 AM) 36.8 Deg C (03/14/24 4:30 AM) Heart Rate Monitored [60-100 bpm] 96 bpm (03/14/24 8:27 AM) 84 bpm (03/14/24 7:52 AM) 80 bpm (03/14/24 7:45 AM) Respiratory Rate [12-24 br/min] 14 br/min (03/14/24 8:27 AM) 14 br/min (03/14/24 7:52 AM) 12 br/min (03/14/24 7:45 AM) Blood Pressure [90-140/60-90 mmHg] 159/93mmHg *HI* (03/14/24 8:27 AM) 150/89mmHg *HI* (03/14/24 7:52 AM) 136/89mmHg (03/14/24 7:45 AM) Mean Arterial Pressure, Cuff [65-140 mmHg] 115 mmHg (03/14/24 8:27 AM) 109 mmHg (03/14/24 7:52 AM) 105 mmHg (03/14/24 7:45 AM) Weight 81.8 kg (03/14/24 4:30 AM) Weight Dosing 81.800 kg (03/14/24 4:30 AM) Social History Social History Type Response Tobacco Current everyday tob acco user Tobacco Use:. 1/2 pack since 01/2022 prior was 1 PPD per day. 40 year(s). Total pack years: 40. Sex Female Hospital Discharge Instructions Patient Education 03/14/2024 06:22:18 Heat Exhaustion Heat Exhaustion Heat exhaustion happens when the body gets overheated from hot weather, exercise, strenuous physical activity, dehydration, or a combination of these. It is important to treat heat exhaustion as soonas possible. If untreated, heat exhaustion can lead to heat stroke, which is a medical emergency and can be life-threatening. What are the causes? Common causes of heat exhaustion include: ??? Exercising or doing strenuous labor or activity in hot or humid weather. ??? Being exposed to very warm and poorly ventilated environments, such as living in a home withoutair conditioning or being in a car without good ventilation. ??? Not drinking enough water, especially in hot or humid weather. ??? Not having enough salts and minerals in the blood (electrolytes). What increases the risk? The following factors may make you more likely to develop this condition: ??? Exercising beyond your fitness level in hot conditions. ??? Exercising or working in hot weather when your body is not used to the heat. ??? Wearing clothing that does not allow your sweat to evaporate. ??? Drinking a lot of alcoholic beverages or beverages that have caffeine. This can lead to dehydration. ??? Being age 65 or older. ??? Being a child. ??? Having certain chronic medical conditions, such as heart disease, poor circulation or other vascular diseases, sickle cell disease, high blood pressure, diabetes, lung disease, or cystic fibrosis. ??? Being very overweight (obese). ??? Taking certain medicines, such as those for high blood pressure, antihistamines, or tranquilizers. ??? Using drugs such as cocaine, heroin, or amphetamines. What are the signs or symptoms? Symptoms of this condition include: ??? Heavy sweating along with feeling weak, dizzy, light-headed, and nauseous. ??? Vomiting. ??? Red, blotchy rash over the body. This is also called prickly heat. ??? Rapid heartbeat. ??? Headache. ??? Body temperature over 102.2??F (39??C). ??? Urine that is darker than normal. ??? Muscle cramps, such as in the leg or side (flank). ??? Moist, cool, and clammy skin. ??? Fatigue. ??? Thirst. ??? Difficulty focusing or concentrating. ??? Passing out. Signs and symptoms may develop suddenly or over time. How is this diagnosed? This condition may be diagnosed based on your symptoms, a physical exam, and history of heat exposure. How is this treated? This condition may be treated by: ??? Immediately stopping physical activity. ??? Moving to a cooler, shaded area with good ventilation and airflow, or to an air-conditioned environment. ??? Removing all unnecessary clothing to expose as much skin to the air as possible. ??? Using cooling fans and water-misting sprays to cool the body down. ??? Drinking plenty of fluids, including sports drinks with electrolytes. ??? Having cooling blankets placed on you to lower your body temperature. ??? Giving you fluids through an IV in a hospital. Follow these instructions at home: If you think that you have heat exhaustion: ??? Ask a friend or a family member to stay with you. ??? Take a cool bath or shower. ??? Drink enough fluid to keep your urine pale yellow. ??? Lie down and rest. ??? Return to your normal activities as told by your health care provider. Ask your health care provider what activities are safe for you. Contact a health care provider if: ??? Symptoms last for more than 30 minutes. ??? You feel your symptoms are not improving after taking steps to cool down. Get help right away if: ??? You have any symptoms of heat stroke. These include: ??? Temperature of 104??F (40??C) or higher. ??? Diffusely red skin. ??? Inability to sweat, resulting in hot, dry skin. ??? Excessive thirst. ??? Nausea and vomiting. ??? Rapid breathing. ??? Chest pain. ??? Headache. ??? Confusion or disorientation. ??? Fainting. ??? Seizure. These symptoms may represent a serious problem that is an emergency. Do not wait to see if the symptoms will go away. Get medical help right away. Call your local emergency services (911 in the [place] Do not drive yourself to the hospital. Summary ??? Heat exhaustion happens when your body gets overheated from hot weather, strenuous activity, and dehydration. ??? Symptoms include sweating, fatigue, muscle cramps, and headache. ??? Treat heat exhaustion immediately by moving to a ventilated and cool environment, having cool water sprayed on as much of the skin as possible, removing all unnecessary clothing, and drinking fluids with electrolytes. ??? If your symptoms last for more than 30 minutes, contact a health care provider. ??? If untreated, heat exhaustion can lead to heat stroke, which is a medical emergency and can be life-threatening. This information is not intended to replace advice given to you by your health care provider. Make sure you discuss any questions you have with your health care provider. Document Revised: 03/09/2021 Document Reviewed: 03/09/2021 [employer] Patient Education ?? 2022 [employer]. 03/14/2024 06:22:15 Dehydration, Adult Dehydration, Adult Dehydration is a condition in which there is not enough water or other fluids in the body. This happens when a person loses more fluids than they take in. Important organs, such as the kidneys, brain, and heart, cannot function without a proper amount of fluids. Any loss of fluids from the body canlead to dehydration. Dehydration can be mild, moderate, or severe. It should be treated right away to prevent it from becoming severe. What are the causes? Dehydration may be caused by: ??? Health conditions, such as diarrhea, vomiting, fever, infection, or sweating or urinating a lot. ??? Not drinking enough fluids. ??? Certain medicines, such as medicines that remove excess fluid from the body (diuretics). ??? Lack of safe drinking water. ??? Not being able to get enough water and food. What increases the risk? The following factors may make you more likely to develop this condition: ??? Having a long-term (chronic) illness that has not been treated properly, such as diabetes, heart disease, or kidney disease. ??? Being 65 years of age or older. ??? Having a disability. ??? Living in a place that is high in altitude, where thinner, long goods drier air causes more fluid loss. ??? Doing exercises that put stress on your body for a long time (endurance sports). ??? Being active in a hot climate. What are the signs or symptoms? Symptoms of dehydration depend on how severe it is. Mild or moderate dehydration ??? Thirst. ??? Dry lips or dry mouth. ??? Dizziness or light-headedness. ??? Muscle cramps. ??? Dark urine. Urine may be the color of tea. ??? Less urine or tears produced than usual. ??? Headache. Severe dehydration ??? Changes in skin. Your skin may be cold and clammy, blotchy, or pale. Your skin also may not return to normal after being lightly pinched and released. ??? Little or no tears, urine, or sweat. ??? Rapid breathing and low blood pressure. Your pulse may be weak or may be faster than 100 beats per minute when you are sitting still. ??? Other changes, such as: ??? Feeling very thirsty. ??? Sunken eyes. ??? Cold hands and feet. ??? Confusion. ??? Being very tired (lethargic) or having trouble waking from sleep. ??? Short-term weight loss. ??? Loss of consciousness. How is this diagnosed? This condition is diagnosed based on your symptoms and a physical exam. You may have blood and urine tests to help confirm the diagnosis. How is this treated? Treatment for this condition depends on how severe it is. Treatment should be started right away. Do not wait until dehydration becomes severe. Severe dehydration is an emergency and needs to be treated in a hospital. ??? Mild or moderate dehydration can be treated at home. You may be asked to: ??? Drink more fluids. ??? Drink an oral rehydration solution (ORS). This drink restores fluids, salts, and minerals in the blood (electrolytes). ??? Stop any activities that caused dehydration, such as exercise. ??? Cool off with cool compresses, cool mist, or cool fluids, if heat or too much sweat caused yourcondition. ??? Take medicine to treat fever, if fever caused your condition. ??? Take medicine to treat nausea and diarrhea, if vomiting or diarrhea caused your condition. ??? Severe dehydration can be treated: ??? With IV fluids. ??? By correcting abnormal levels of electrolytes in your body. ??? By treating the underlying cause of dehydration. Follow these instructions at home: Oral rehydration solution If told by your health care provider, drink an ORS: ??? Make an ORS by following instructions on the package. ??? Start by drinking small amounts, about ?? cup (120 mL) every 5???10 minutes. ??? Slowly increase how much you drink until you have taken the amount recommended by your health care provider. Eating and drinking ??? Drink enough clear fluid to keep your urine pale yellow. If you were told to drink an ORS, finish the ORS first and then start slowly drinking other clear fluids. Drink fluids such as: ??? Water. Do not drink only water. Doing that can lead to hyponatremia, which is having too littlesalt (sodium) in the body. ??? Water from ice chips you suck on. ??? Diluted fruit juice. This is fruit juice that you have added water to. ??? Low-calorie sports drinks. ??? Eat foods that contain a healthy balance of electrolytes, such as bananas, oranges, potatoes, tomatoes, and spinach. ??? Do not drink alcohol. ??? Avoid the following: ??? Drinks that contain a lot of sugar. These include high-calorie sports drinks, fruit juice that is not diluted, and soda. ??? Caffeine. ??? Foods that are greasy or contain a lot of fat or sugar. General instructions ??? Take ipom-yut-yfkolfr and prescription medicines only as told by your health care provider. ??? Do not take sodium tablets. Doing that can lead to having too much sodium in the body (hypernatremia). ??? Return to your normal activities as told by your health care provider. Ask your health care provider what activities are safe for you. ??? Keep all follow-up visits. Your health care provider may need to check your progress and suggest new ways to treat your condition. Contact a health care provider if: ??? You have muscle cramps, pain, or discomfort, such as: ??? Pain in your abdomen and the pain gets worse or stays in one area. ??? Stiff neck. ??? You have a rash. ??? You are more irritable than usual. ??? You are sleepier or have a harder time waking. ??? You feel weak or dizzy. ??? You feel very thirsty. Get help right away if: ??? You have symptoms of severe dehydration. ??? You vomit every time you eat or drink. ??? Your vomiting gets worse, does not go away, or includes blood or green matter (bile). ??? You are getting treatment but symptoms are getting worse. ??? You have a fever. ??? You have a severe headache. ??? You have: ??? Diarrhea that gets worse or does not go away. ??? Blood in your stool. This may cause stool to look black and tarry. ??? Not urinating, or urinating only a small amount of very dark urine, within 6???8 hours. ??? You have trouble breathing. These symptoms may be an emergency. Get help right away. ??? Do not wait to see if the symptoms will go away. ??? Do not drive yourself to the hospital. Call 911. This information is not intended to replace advice given to you by your health care provider. Make sure you discuss any questions you have with your health care provider. Document Revised: 04/11/2023 Document Reviewed: 04/11/2023 [employer] Patient Education ?? 2022 [employer] Follow Up Care 03/14/2024 04:26:33 With:Asya Hand MD Address: [address] [address]- When:1 to 2 weeks Physician Emergency department Note * Layne Daniel MD: PERFORM Event Display: ED Note Physician Authored Date: [id number] MAD[place] COBB :1965 Age:58 years Sex:Female Visit Date:03/14/2024 Primary Care Physician: Asya Hand MD I received sign out on this pt from Dr Pickard at 7am. The pt is a 58-year-old female who presented w/ fatigue, diaphoresis, feeling hot??at home, in the setting of extreme heat in??her apartment. Pt found to exhibit dehydration with mild hyponatremia in the context of chronically low normal Sodium.?? Troponins negative x 2. ekg without ischemia. Pt has received 2L of IVNS and feels better. d/lit home with plan to f/u with primary care in 1-2 weeks.? Electronically Signed on 03/14/2024 09:15 EDT Layne Daniel MD * Garett Pickard MD: PERFORM Event Display: ED Note Physician Authored Date: [id number] [place] JOEBAN Barnes :1965 Age:58 years Sex:Female Visit Date:03/14/2024 Primary Care Physician: Asya Hand MD Basic Information Time Seen: Garett Pickard MD / 03/14/2024 04:30 Chief Complaint pt to ED with c/o being hot and sweaty at home. pt reports n/v/d for the past several days per EMS pt was in a extremely hot house with little to no air movement History Of Present Illness: 58-year-old female past medical history alcohol use 2-3??drinks a day, CVA, hepatitis C, CKD, COPD,hyperlipidemia, hypertension, myocardial infarction, seizure, smoking??presents with??fatigue. ??Patient reports being very hot at home after the hot day yesterday, was in her apartment??not in any air conditioning, was feeling like she was going to pass out and was sweating.?? Denied any chest pain shortness of breath recent sickness cough cold congestion fevers??abdominal pain.?? No syncope or vomiting. Review of Systems: Fatigue, presyncope Physical Exam Vitals & Measurements T:??36.8?C ??(Temporal Artery)?? HR:??57??(Monitored)?? RR:??13?? BP:??164/94?? SpO2:??94%?? WT:??81.8??kg?? O2 Therapy:??Room air?? General: Alert and oriented, well nourished,?No??acute distress Eye: PERRL, EOMI,?Normal?conjunctiva HENT: Normocephalic Lungs: Clear to auscultation and percussion,?Non-labored?? respiration Heart:?Normal? rate,?Regular??rhythm Abdomen: Soft, non-tender, non-distended Psychiatric: Cooperative, appropriate mood and affect Medical Decision Makin-year-old female??past medical history as above presents with??fatigue, diaphoresis, feeling hot??at home. ??It was a 90 to 95 degree day yesterday, was in her apartment all day in the??heat, does not have any AC was in the upstairs portion of the apartment, was starting to sweat??because of the heat and felt like she was going to pass out.?? 36.8, 164/94, 57, 13, 94%.?? EKG rate 56 sinus bradycardia normal axis and intervals no ST segment elevations or depressions.?? Initial labs are unremarkable with the exception of dehydration with minimally elevated creatinine of 1.1??and concentrated hemoglobin of 16, and mild hyponatremia of 127.?? Troponin is negative.?? Given liter of IV fluids.?? Patient on reexamination??after Zofran and fluids is feeling much better. ??Likely has dehydrationand mild heat exhaustion. ??Does not seem to be acute coronary syndrome as??troponins are??both negative and EKG does not show acute ischemic change.?? Signed out to Dr. Daniel for final reexamination,the patient should be??good for discharge after??IV fluids are finished Procedure No Qualifying Data Assessment/Plan 1.??Dehydration??E86.0 2.??Heat exhaustion??T67.5XXA 3.??Hyponatremia??E87.1 Patient Education Heat Exhaustion Dehydration, Adult Follow Up With When Contact Information Asya Hand MD Within 1 to [address] [address]- Additional Instructions: Medication Reconciliation Unchanged albuterol (Albuterol (Eqv-ProAir HFA) [...] on right shoulder???Total hysterectomy Medication Administration Given NS bolus, 1000 mL, Hydration Bolus Zofran, 4 mg, IV Push Allergies ampicillin??(Facial swelling, Skin rash) azithromycin??(Itching) codeine??(Itching) sulfa drugs??(Facial swelling, Skin rash) ALPRAZolam SUMAtriptan amoxicillin??(Unknown) iodinated radiocontrast dyes penicillins Social History Alcohol Current, Beer, 3-5 times per week- Comments: 2 beers daily Electronic Cigarette/Vaping Electronic [...] and Differential?? LATEST RESULTS?? HISTORICAL RESULTS?? WBC?? 03/14/24 04:32?? 9.0?? 01/23/24?? 8.8?? RBC?? 03/14/24 04:32?? 5.3?? 01/23/24?? 5.0?? Hgb?? 03/14/24 04:32?? 16.3 ??High?? 01/23/24?? 15.5?? Hct?? 03/14/24 04:32?? 46.1?? 01/23/24?? 45.1?? MCV?? 03/14/24 04:32?? 86.5?? 01/23/24?? 89.3?? MCH?? 03/14/24 04:32?? 30.6?? 01/23/24?? 30.7?? MCHC?? 03/14/24 04:32?? 35.4 ??High?? 01/23/24?? 34.4?? RDW-CV?? 03/14/24 04:32?? 13.0?? 01/23/24?? 13.1?? Platelets?? 03/14/24 04:32?? 238?? 01/23/24?? 249?? Neutro Auto?? 03/14/24 04:32?? 50.2?? 01/23/24?? 50.0?? Lymph Auto?? 03/14/24 04:32?? 38.1?? 01/23/24?? 37.9?? [place] Auto?? 03/14/24 04:32?? 9.4?? 01/23/24?? 9.4?? Eos, Auto?? 03/14/24 04:32?? 1.4?? 01/23/24?? 1.6?? Basophil Auto?? 03/14/24 04:32?? 0.7?? 01/23/24?? 0.8?? Imm Gran Auto?? 03/14/24 04:32?? 0.2?? 01/23/24?? 0.3?? Neutro Absolute?? 03/14/24 04:32?? 4.5?? 01/23/24?? 4.4?? Slide Review?? 03/14/24 04:32?? Not Indicated?? 01/23/24?? Not Indicated? Routine Chemistry?? LATEST RESULTS?? HISTORICAL RESULTS?? Sodium Level?? 03/14/24 04:32?? 127 ??Low?? 01/23/24?? 131 ??Low?? Potassium Level?? 03/14/24 04:32?? 4.1?? 01/23/24?? 3.4 ??Low?? Chloride Level?? 03/14/24 04:32?? 90 ??Low?? 01/23/24?? 93 ??Low?? CO2?? 03/14/24 04:32?? 26?? 01/23/24?? 24?? Alk Phos?? 03/14/24 04:32?? 137?? 01/23/24?? 173 ??High?? AST?? 03/14/24 04:32?? 44 ??High?? 01/23/24?? 61 ??High?? ALT?? 03/14/24 04:32?? 32?? 01/23/24?? 52?? BUN?? 03/14/24 04:32?? 10?? 01/23/24?? 12?? Glucose Level?? 03/14/24 04:32?? 82?? 01/23/24?? 92?? Creatinine Level?? 03/14/24 04:32?? 1.10 ??High?? 01/23/24?? 0.97?? eGFR AA?? 03/14/24 04:32?? 58 ??Low?? 01/23/24?? 67?? eGFR Non-AA?? 03/14/24 04:32?? 58 ??Low?? 01/23/24?? 67?? Calcium Level?? 03/14/24 04:32?? 9.8?? 01/23/24?? 9.8?? Protein Total?? 03/14/24 04:32?? 8.3 ??High?? 01/23/24?? 8.2?? Albumin Level?? 03/14/24 04:32?? 3.8?? 01/23/24?? 3.5?? Bilirubin Total?? 03/14/24 04:32?? 0.9?? 01/23/24?? 1.0?? Magnesium Level?? 03/14/24 04:32?? 2.0?? 12/24/23?? 1.9? Cardiac Isoenzymes?? LATEST RESULTS?? HISTORICAL RESULTS?? Troponin-I?? 03/14/24 06:10?? 5.7?? 01/23/24?? 6.8? Electronically Signed on 03/14/2024 07:23 EDT Garett Pickard MD Emergency department Discharge instructions * Layne Daniel MD: PERFORM Event Display: ED Discharge Information Authored Date: [id number] JORDYN MADISON A :1965 Age:58 years Sex:Female Visit Date:03/14/2024 Primary Care Physician: Asya Hand MD Discharge Instructions We would like to thank you for allowing us to assist you with your healthcare needs. The following includes patient education materials and information regarding your injury/illness. Diagnosis from Today's Visit Dehydration Heat exhaustion Hyponatremia Discharge Vitals Temperature??(Temporal Artery) 97.0 ??F (36.1 ??C) Heart Rate??(Monitored) 96 Respiratory Rate?? 14 Blood Pressure?? 159/93?? SpO2?? 99% Weight?? 180.37 lb (81.8 kg) Allergies ampicillin??(Facial swelling, Skin rash) azithromycin??(Itching) codeine??(Itching) sulfa drugs??(Facial swelling, Skin rash) ALPRAZolam SUMAtriptan amoxicillin??(Unknown) iodinated radiocontrast dyes penicillins What to Do Next Instructions from Your Care Team You were seen in the emergency department today??after??feeling?like you are going to pass out in the heat of your apartment. ??You are given IV fluids here in the ER.?? The rest of your labs hereshowed some evidence of dehydration??which is likely contributing to your??symptoms. ??You most likely have symptoms related to the overall??overwhelming heat??yesterday and last night.?? Come back to the ER with any worsening symptoms otherwise follow-up closely with your primary care physician in1 to 2 weeks.?? Please try to stay well-hydrated at home You Need to Schedule the Following Appointments Follow Up with??Asya Hand MD When:??Within 1 to 2 weeks Where: [address] [place] [address]- Upcoming Scheduled Appointments 2023 10:30 AM EDT ?? With: Liudmila DUNAWAYDaksha MINISTER OF RELIGION Where: [facility] [address] [place] [address] Status: Confirmed You were treated today on an emergency [...] How Much When Why Instructions Next Dose Unchanged albuterol (Albuterol (Eqv-ProAir HFA) 90 mcg/ [...] taken at least 24 hours apart ?? [employer] Heat Exhaustion Heat exhaustion happens when the body gets overheated from hot weather, exercise, strenuous physical activity, dehydration, or a combination of these. It is important to treat heat exhaustion as soonas possible. If untreated, heat exhaustion can lead to heat stroke, which is a medical emergency and can be life-threatening. What are the causes? Common causes of heat exhaustion include: ? Exercising or doing strenuous labor or activity in hot or humid weather. ? Being exposed to very warm and poorly ventilated environments, such as living in a home without airconditioning or being in a car without good ventilation. ? Not drinking enough water, especially in hot or humid weather. ? Not having enough salts and minerals in the blood (electrolytes). What increases the risk? The following factors may make you more likely to develop this condition: ? Exercising beyond your fitness level in hot conditions. ? Exercising or working in hot weather when your body is not used to the heat. ? Wearing clothing that does not allow your sweat to evaporate. ? Drinking a lot of alcoholic beverages or beverages that have caffeine. This can lead to dehydration. ? Being age 65 or older. ? Being a child. ? Having certain chronic medical conditions, such as heart disease, poor circulation or other vascular diseases, sickle cell disease, high blood pressure, diabetes, lung disease, or cystic fibrosis. ? Being very overweight (obese). ? Taking certain medicines, such as those for high blood pressure, antihistamines, or tranquilizers. ? Using drugs such as cocaine, heroin, or amphetamines. What are the signs or symptoms? Symptoms of this condition include: ? Heavy sweating along with feeling weak, dizzy, light-headed, and nauseous. ? Vomiting. ? Red, blotchy rash over the body. This is also called prickly heat. ? Rapid heartbeat. ? Headache. ? Body temperature over 102.2??F (39??C). ? Urine that is darker than normal. ? Muscle cramps, such as in the leg or side (flank). ? Moist, cool, and clammy skin. ? Fatigue. ? Thirst. ? Difficulty focusing or concentrating. ? Passing out. Signs and symptoms may develop suddenly or over time. How is this diagnosed? This condition may be diagnosed based on your symptoms, a physical exam, and history of heat exposure. How is this treated? This condition may be treated by: ? Immediately stopping physical activity. ? Moving to a cooler, shaded area with good ventilation and airflow, or to an air- conditioned environment. ? Removing all unnecessary clothing to expose as much skin to the air as possible. ? Using cooling fans and water-misting sprays to cool the body down. ? Drinking plenty of fluids, including sports drinks with electrolytes. ? Having cooling blankets placed on you to lower your body temperature. ? Giving you fluids through an IV in a hospital. Follow these instructions at home: If you think that you have heat exhaustion: ? Ask a friend or a family member to stay with you. ? Take a cool bath or shower. ? Drink enough fluid to keep your urine pale yellow. ? Lie down and rest. ? Return to your normal activities as told by your health care provider. Ask your health care provider what activities are safe for you. Contact a health care provider if: ? Symptoms last for more than 30 minutes. ? You feel your symptoms are not improving after taking steps to cool down. Get help right away if: ? You have any symptoms of heat stroke. These include: ? Temperature of 104??F (40??C) or higher. ? Diffusely red skin. ? Inability to sweat, resulting in hot, dry skin. ? Excessive thirst. ? Nausea and vomiting. ? Rapid breathing. ? Chest pain. ? Headache. ? Confusion or disorientation. ? Fainting. ? Seizure. These symptoms may represent a serious problem that is an emergency. Do not wait to see if the symptoms will go away. Get medical help right away. Call your local emergency services (911 in the [place] Do not drive yourself to the hospital. Summary ? Heat exhaustion happens when your body gets overheated from hot weather, strenuous activity, and dehydration. ? Symptoms include sweating, fatigue, muscle cramps, and headache. ? Treat heat exhaustion immediately by moving to a ventilated and cool environment, having cool watersprayed on as much of the skin as possible, removing all unnecessary clothing, and drinking fluids with electrolytes. ? If your symptoms last for more than 30 minutes, contact a health care provider. ? If untreated, heat exhaustion can lead to heat stroke, which is a medical emergency and can be life-threatening. This information is not intended to replace advice given to you by your health care provider. Make sure you discuss any questions you have with your health care provider. Document Revised: 03/09/2021 Document Reviewed: 03/09/2021 [employer] Patient Education ?? 2022 [employer] Dehydration, Adult Dehydration is a condition in which there is not enough water or other fluids in the body. This happens when a person loses more fluids than they take in. Important organs, such as the kidneys, brain, and heart, cannot function without a proper amount of fluids. Any loss of fluids from the body canlead to dehydration. Dehydration can be mild, moderate, or severe. It should be treated right away to prevent it from becoming severe. What are the causes? Dehydration may be caused by: ? Health conditions, such as diarrhea, vomiting, fever, infection, or sweating or urinating a lot. ? Not drinking enough fluids. ? Certain medicines, such as medicines that remove excess fluid from the body (diuretics). ? Lack of safe drinking water. ? Not being able to get enough water and food. What increases the risk? The following factors may make you more likely to develop this condition: ? Having a long-term (chronic) illness that has not been treated properly, such as diabetes, heart disease, or kidney disease. ? Being 65 years of age or older. ? Having a disability. ? Living in a place that is high in altitude, where thinner, long goods drier air causes more fluid loss. ? Doing exercises that put stress on your body for a long time (endurance sports). ? Being active in a hot climate. What are the signs or symptoms? Symptoms of dehydration depend on how severe it is. Mild or moderate dehydration ? Thirst. ? Dry lips or dry mouth. ? Dizziness or light-headedness. ? Muscle cramps. ? Dark urine. Urine may be the color of tea. ? Less urine or tears produced than usual. ? Headache. Severe dehydration ? Changes in skin. Your skin may be cold and clammy, blotchy, or pale. Your skin also may not return to normal after being lightly pinched and released. ? Little or no tears, urine, or sweat. ? Rapid breathing and low blood pressure. Your pulse may be weak or may be faster than 100 beats per minute when you are sitting still. ? Other changes, such as: ? Feeling very thirsty. ? Sunken eyes. ? Cold hands and feet. ? Confusion. ? Being very tired (lethargic) or having trouble waking from sleep. ? Short-term weight loss. ? Loss of consciousness. How is this diagnosed? This condition is diagnosed based on your symptoms and a physical exam. You may have blood and urine tests to help confirm the diagnosis. How is this treated? Treatment for this condition depends on how severe it is. Treatment should be started right away. Do not wait until dehydration becomes severe. Severe dehydration is an emergency and needs to be treated in a hospital. ? Mild or moderate dehydration can be treated at home. You may be asked to: ? Drink more fluids. ? Drink an oral rehydration solution (ORS). This drink restores fluids, salts, and minerals in the blood (electrolytes). ? Stop any activities that caused dehydration, such as exercise. ? Cool off with cool compresses, cool mist, or cool fluids, if heat or too much sweat caused your condition. ? Take medicine to treat fever, if fever caused your condition. ? Take medicine to treat nausea and diarrhea, if vomiting or diarrhea caused your condition. ? Severe dehydration can be treated: ? With IV fluids. ? By correcting abnormal levels of electrolytes in your body. ? By treating the underlying cause of dehydration. Follow these instructions at home: Oral rehydration solution If told by your health care provider, drink an ORS: ? Make an ORS by following instructions on the package. ? Start by drinking small amounts, about ?? cup (120 mL) every 5???10 minutes. ? Slowly increase how much you drink until you have taken the amount recommended by your health care provider. Eating and drinking ? Drink enough clear fluid to keep your urine pale yellow. If you were told to drink an ORS, finish the ORS first and then start slowly drinking other clear fluids. Drink fluids such as: ? Water. Do not drink only water. Doing that can lead to hyponatremia, which is having too little salt (sodium) in the body. ? Water from ice chips you suck on. ? Diluted fruit juice. This is fruit juice that you have added water to. ? Low-calorie sports drinks. ? Eat foods that contain a healthy balance of electrolytes, such as bananas, oranges, potatoes, tomatoes, and spinach. ? Do not drink alcohol. ? Avoid the following: ? Drinks that contain a lot of sugar. These include high-calorie sports drinks, fruit juice that is not diluted, and soda. ? Caffeine. ? Foods that are greasy or contain a lot of fat or sugar. General instructions ? Take [id number] and prescription medicines only as told by your health care provider. ? Do not take sodium tablets. Doing that can lead to having too much sodium in the body (hypernatremia). ? Return to your normal activities as told by your health care provider. Ask your health care provider what activities are safe for you. ? Keep all follow-up visits. Your health care provider may need to check your progress and suggest new ways to treat your condition. Contact a health care provider if: ? You have muscle cramps, pain, or discomfort, such as: ? Pain in your abdomen and the pain gets worse or stays in one area. ? Stiff neck. ? You have a rash. ? You are more irritable than usual. ? You are sleepier or have a harder time waking. ? You feel weak or dizzy. ? You feel very thirsty. Get help right away if: ? You have symptoms of severe dehydration. ? You vomit every time you eat or drink. ? Your vomiting gets worse, does not go away, or includes blood or green matter (bile). ? You are getting treatment but symptoms are getting worse. ? You have a fever. ? You have a severe headache. ? You have: ? Diarrhea that gets worse or does not go away. ? Blood in your stool. This may cause stool to look black and tarry. ? Not urinating, or urinating only a small amount of very dark urine, within 6???8 hours. ? You have trouble breathing. These symptoms may be an emergency. Get help right away. ? Do not wait to see if the symptoms will go away. ? Do not drive yourself to the hospital. Call 911. This information is not intended to replace advice given to you by your health care provider. Make sure you discuss any questions you have with your health care provider. Document Revised: 04/11/2023 Document Reviewed: 04/11/2023 [employer] Patient Education ?? 2022 [employer] Tests Performed Medications and Immunizations Administered Given NS bolus, 1000 mL, Hydration Bolus Zofran, 4 mg, IV Push Lab Test Name Test Result Date/Time WBC 9.0 x10^3/mcL 03/14/2024 04:32 EDT RBC 5.3 x10^6/mcL 03/14/2024 04:32 EDT Hgb 16.3 g/dL 03/14/2024 04:32 EDT Hct 46.1 % 03/14/2024 04:32 EDT MCV 86.5 fL 03/14/2024 04:32 EDT MCH 30.6 pg 03/14/2024 04:32 EDT MCHC 35.4 g/dL 03/14/2024 04:32 EDT RDW-CV 13.0 % 03/14/2024 04:32 EDT Platelets 238 x10^3/mcL 03/14/2024 04:32 EDT Neutro Auto 50.2 % 03/14/2024 04:32 EDT Lymph Auto 38.1 % 03/14/2024 04:32 EDT [place] Auto 9.4 % 03/14/2024 04:32 EDT Eos, Auto 1.4 % 03/14/2024 04:32 EDT Basophil Auto 0.7 % 03/14/2024 04:32 EDT Imm Gran Auto 0.2 % 03/14/2024 04:32 EDT Neutro Absolute 4.5 x10^3/mcL 03/14/2024 04:32 EDT Slide Review Not Indicated 03/14/2024 04:32 EDT Sodium Level 127 mmol/L 03/14/2024 04:32 EDT Potassium Level 4.1 mmol/L 03/14/2024 04:32 EDT Chloride Level 90 mmol/L 03/14/2024 04:32 EDT CO2 26 mmol/L 03/14/2024 04:32 EDT Alk Phos 137 unit/L 03/14/2024 04:32 EDT AST 44 unit/L 03/14/2024 04:32 EDT ALT 32 unit/L 03/14/2024 04:32 EDT BUN 10 mg/dL 03/14/2024 04:32 EDT Glucose Level 82 mg/dL 03/14/2024 04:32 EDT Creatinine Level 1.10 mg/dL 03/14/2024 04:32 EDT eGFR AA 58 03/14/2024 04:32 EDT eGFR Non-AA 58 03/14/2024 04:32 EDT Calcium Level 9.8 mg/dL 03/14/2024 04:32 EDT Protein Total 8.3 g/dL 03/14/2024 04:32 EDT Albumin Level 3.8 g/dL 03/14/2024 04:32 EDT Bilirubin Total 0.9 mg/dL 03/14/2024 04:32 EDT Magnesium Level 2.0 mg/dL 03/14/2024 04:32 EDT Troponin-I 5.7 pg/mL 03/14/2024 06:10 EDT Patient/Immigration Officer Signature Patient Name:MADISON COBB Molly I have received this information and my questions have been answered. Patient/Immigration Officer Name: Patient/Immigration Officer Signature: Relationship to Patient: Witness Name/Signature: Date: Electronically Signed on: 03/14/2024 09:03 EDTSigned by:PRAFUL Patient Care team information Care Team Personnel Name: Asya Hand MD Position: PowerChart View Only Member Role: Informed Provider Address: Address: [address] Care Team Related Persons Name: PHANI LIPSCOMB Name: DENITA RAO
--- OUTSIDE RECORDS SUMMARY | 2024-04-13 11:17 | XMS_ITS | Continuity of Care Document ---
Author Organization [facility] Address [address] [place] [address] Care Team Providers Care Wolf Hunter Name Role Phone Asya Hand Primary Care Physician Encounter [facility] Date(s): 05/06/23 - 07/10/23 [facility] [address] [place] [address] Discharge Disposition: Home or Self Care Attending [...] DAY, # 90 tab, 3 Refill(s), Pharmacy: [facility] #[facility], 170.18, cm, 09/16/22 6:46:00 EST, Height/Length Dosing, 94.3, kg, 09/16/22 6:46:00 EST, Weight Dosing Start Date: 10/12/22 Status: Ordered diphenoxylate-atropine 2.5 mg-0.025 mg oral tablet 30 EA, TAKE ONE TABLET BY MOUTH EVERY 6 HOURS NEEDED, 0 Refill(s) Start Date: 11/09/22 Status: Ordered FLUoxetine 20 mg oral capsule 3 cap, Oral, Daily, # 270 cap, 3 Refill(s), Pharmacy: [facility], 170, cm, 03/06/22 13:18:00 EDT, Height/Length Dosing, 86, kg, 03/06/22 13:18:00 EDT, Weight Dosing Start Date: 07/06/22 Status: Ordered hydrocortisone 2.5% topical cream See Instructions, PRN rash, apply in a thin film to the affected skin and rub in gently and completely, use no more than 3 times daily, # 454 g, 1 Refill(s), Pharmacy: [facility], 170.18, cm, 09/16/22 6:46:00 EST, Height/Length Dosing, 94.3, kg, 09/16/22 6:46:00 EST, Weight Dosing Start Date: 09/24/22 Status: Ordered Incruse Ellipta 62.5 mcg/inh inhalation powder 1 EA, Inhale, every 24 hr, doses should be taken at least 24 hours apart, # 30 EA, 11 Refill(s), Pharmacy: [facility] Start Date: 02/11/22 Stop Date: 02/06/23 Status: Ordered Keppra 250 mg oral tablet 500 mg = 2 tab, Oral, BID, # 120 tab, 5 Refill(s), Pharmacy: [facility], 170.18, cm, 09/16/22 6:46:00 EST, Height/Length Dosing, 94.3, kg, 09/16/22 6:46:00 EST, Weight Dosing Start Date: 09/19/22 Stop Date: 03/18/23 Status: Ordered losartan 50 mg oral tablet 50 mg = 1 tab, Oral, Daily, # 90 tab, 3 Refill(s), Pharmacy: [facility], 170.18, cm, 09/16/22 6:46:00 EST, Height/Length Dosing, 94.3, kg, 09/16/22 6:46:00 EST, Weight Dosing Start Date: 09/19/22 Stop Date: 09/14/23 Status: Ordered Lyrica 300 mg oral capsule 300 mg = 1 cap, Oral, Daily, # 28 cap, 1 Refill(s), Pharmacy: [facility], 170, cm, 03/06/22 13:18:00 EDT, Height/Length Dosing, 86, kg, 03/06/22 13:18:00 EDT, Weight Dosing Start Date: 08/17/22 Stop Date: 10/12/22 Status: Ordered metoprolol succinate 25 mg oral tablet, extended release 25 mg = 1 tab, Oral, Daily, # 90 tab, 3 Refill(s), Pharmacy: [facility], 170.18, cm, 09/16/22 6:46:00 EST, Height/Length [...] Daily, # 14 patches, 1 Refill(s), Pharmacy: [facility], 170.18, cm, 09/16/22 6:46:00 EST, Height/Length Dosing, 94.3, kg, 09/16/22 6:46:00 EST, Weight Dosing Start Date: 09/19/22 Stop Date: 10/17/22 Status: Ordered omeprazole 20 mg oral delayed release capsule 1 cap, Oral, Daily, # 90 cap, 3 Refill(s), Pharmacy: [facility], 170, cm, 03/06/22 13:18:00 EDT, Height/Length [...] Daily, # 90 tab, 3 Refill(s), Pharmacy: [facility], 170, cm, 03/06/22 13:18:00 EDT, Height/Length Dosing, 86, kg, 03/06/22 13:18:00 EDT, Weight Dosing Start Date: 07/22/22 Status: Ordered Send to [facility] Send to [facility], Send to [facility], Supply, See instructions, # 1 EA, 0 Refill(s) Start Date: 05/21/22 Status: Ordered Senna 8.6 mg oral tablet See Instructions, TAKE TWO TABLETS BY MOUTH EVERY DAY NEEDED FOR 14 DAYS, # 28 tab, 3 Refill(s),Pharmacy: [facility], 170, cm, 03/06/22 13:18:00 EDT, Height/Length [...] BEDTIME, # 90 tab, 0 Refill(s), Pharmacy: [facility], 170, cm, 03/06/22 13:18:00 EDT, Height/Length [...] Source Comment: Overview: 02/05/2016 Coronary angiogram [place] [facility] [place]: LAD mid 50%, OM1 long 40%, [...] Only Member Role: Informed Provider Address: Address: [address] [address]- Care Team Related Persons Name: PHANI LIPSCOMB Name: DENITA RAO
--- OUTSIDE RECORDS SUMMARY | 2024-04-13 11:17 | XMS_ITS | Continuity of Care Document ---
Author Organization [facility] Address [address] [place] [address] Care Team Providers Care Licensed Nursing Assistant Name Role Phone Asya Hand Primary Care Physician Encounter [facility] Date(s): 02/15/24 - 02/15/[address] [id number] Discharge Disposition: Home or Self Care Attending Physician: Asya Hand MD Admitting Physician: Asya Hand MD Referring Physician: Asya Hand MD Allergies, Adverse Reactions, Alerts Substance Reaction Severity Status ampicillin 1 Facial swelling Skin rash Moderate Active codeine Itching Moderate Active amoxicillin 2 Unknown Unknown Active penicillins 3 Unknown Active sulfa drugs Facial swelling Skin rash Moderate Active iodinated radiocontrast dyes 4 Unknown Active ALPRAZolam 5 Unknown Active SUMAtriptan 6 Unknown Active azithromycin 7 Itching Moderate Active 1Pt states as a child 2Outside Source Comment: Unknown pt unsure 3as a child 4had side effect to IV contrast used for heard testing 5 years ago ( [facility]),, pt tells they dont use that contrast any more and had other CT po and IV contrast since with no reaction 5Pt states she's not allergic to this medication 12/11/18 6Pt. instructed by not to take due to ICH 7patient states on 03/04/2022 that she is not allergice, just finished taking it and wants it off her allergy list Immunizations Given and Recorded Vaccine Date Status [...] DAY, # 90 tab, 3 Refill(s), Pharmacy: [facility], 170.18, cm, 09/16/22 6:46:00 EST, Height/Length Dosing, 94.3, kg, 09/16/22 6:46:00 EST, Weight Dosing Start Date: 10/12/22 Status: Ordered diphenoxylate-atropine 2.5 mg-0.025 mg oral tablet 30 EA, TAKE ONE TABLET BY MOUTH EVERY 6 HOURS NEEDED, 0 Refill(s) Start Date: 11/09/22 Status: Ordered FLUoxetine 20 mg oral capsule 3 cap, Oral, Daily, # 270 cap, 3 Refill(s), Pharmacy: [facility], 170, cm, 03/06/22 13:18:00 EDT, Height/Length Dosing, 86, kg, 03/06/22 13:18:00 EDT, Weight Dosing Start Date: 07/06/22 Status: Ordered hydrocortisone 2.5% topical cream See Instructions, PRN rash, apply in a thin film to the affected skin and rub in gently and completely, use no more than 3 times daily, # 454 g, 1 Refill(s), Pharmacy: [facility], 170.18, cm, 09/16/22 6:46:00 EST, Height/Length Dosing, 94.3, kg, 09/16/22 6:46:00 EST, Weight Dosing Start Date: 09/24/22 Status: Ordered Incruse Ellipta 62.5 mcg/inh inhalation powder 1 EA, Inhale, every 24 hr, doses should be taken at least 24 hours apart, # 30 EA, 11 Refill(s), Pharmacy: [facility] Start Date: 02/11/22 Stop Date: 02/06/23 Status: Ordered Keppra 250 mg oral tablet 500 mg = 2 tab, Oral, BID, # 120 tab, 5 Refill(s), Pharmacy: [facility], 170.18, cm, 09/16/22 6:46:00 EST, Height/Length Dosing, 94.3, kg, 09/16/22 6:46:00 EST, Weight Dosing Start Date: 09/19/22 Stop Date: 03/18/23 Status: Ordered losartan 50 mg oral tablet 50 mg = 1 tab, Oral, Daily, # 90 tab, 3 Refill(s), Pharmacy: [facility], 170.18, cm, 09/16/22 6:46:00 EST, Height/Length Dosing, 94.3, kg, 09/16/22 6:46:00 EST, Weight Dosing Start Date: 09/19/22 Stop Date: 09/14/23 Status: Ordered Lyrica 300 mg oral capsule 300 mg = 1 cap, Oral, Daily, # 28 cap, 1 Refill(s), Pharmacy: [facility], 170, cm, 03/06/22 13:18:00 EDT, Height/Length Dosing, 86, kg, 03/06/22 13:18:00 EDT, Weight Dosing Start Date: 08/17/22 Stop Date: 10/12/22 Status: Ordered metoprolol succinate 25 mg oral tablet, extended release 25 mg = 1 tab, Oral, Daily, # 90 tab, 3 Refill(s), Pharmacy: [facility], 170.18, cm, 09/16/22 6:46:00 EST, Height/Length [...] Daily, # 14 patches, 1 Refill(s), Pharmacy: [facility], 170.18, cm, 09/16/22 6:46:00 EST, Height/Length Dosing, 94.3, kg, 09/16/22 6:46:00 EST, Weight Dosing Start Date: 09/19/22 Stop Date: 10/17/22 Status: Ordered omeprazole 20 mg oral delayed release capsule 1 cap, Oral, Daily, # 90 cap, 3 Refill(s), Pharmacy: [facility], 170, cm, 03/06/22 13:18:00 EDT, Height/Length [...] Daily, # 90 tab, 3 Refill(s), Pharmacy: [facility], 170, cm, 03/06/22 13:18:00 EDT, Height/Length Dosing, 86, kg, 03/06/22 13:18:00 EDT, Weight Dosing Start Date: 07/22/22 Status: Ordered Send to [facility] Send to [facility], Send to [facility], Supply, See instructions, # 1 EA, 0 Refill(s) Start Date: 05/21/22 Status: Ordered Senna 8.6 mg oral tablet See Instructions, TAKE TWO TABLETS BY MOUTH EVERY DAY NEEDED FOR 14 DAYS, # 28 tab, 3 Refill(s),Pharmacy: [facility], 170, cm, 03/06/22 13:18:00 EDT, Height/Length [...] BEDTIME, # 90 tab, 0 Refill(s), Pharmacy: [facility], 170, cm, 03/06/22 13:18:00 EDT, Height/Length [...] Source Comment: Overview: 02/05/2016 [place] [facility] [place] LAD mid 50%, OM1 long 40%, RCA [...] Only Member Role: Informed Provider Address: Address: [address] [address]- Care Team Related Persons Name: PHANI LIPSCOMB Name: DENITA RAO
--- OUTSIDE RECORDS SUMMARY | 2024-04-13 11:17 | XMS_ITS | Continuity of Care Document ---
Author Organization [facility] Address [address] [place] [address] Care Team Providers Care Lapel Baster Name Role Phone Peace Asya Ronnie Primary Care Physician Encounter [facility] Date(s): 12/24/23 - 12/24/23 [facility] [address] [place] [address] Encounter Diagnosis Abdominal pain(Discharge Diagnosis) - 12/24/23 Nausea and vomiting(Discharge Diagnosis) - 12/24/23 Discharge Disposition: Home or Self Care Attending Physician: Darron Yost MD Admitting Physician: Darron Yost MD Allergies, Adverse Reactions, Alerts Substance Reaction [...] take due to I[facility] Assessment and Plan Extracted from: Title:ED Provider Note Author:Graeme Hammond MD ate:12/24/23 Assessment/Plan 1.??Abdominal pain??R10.9 Ordered: ondansetron 4 mg oral disintegrating strip, 4 mg = 1 EA, Oral, TID, X 5 days, # 15 EA, 0 Refill(s), 12/29/23 13:35:00 EDT, 170, cm, 06/07/23 9:24:00 EDT, Height/Length Dosing, 84.2, kg, 06/07/23 9:24:00 EDT, Weight Dosing Discharge Patient, 12/24/23 13:35:00 EDT, Home Independently, Constant Indicator ?? 2.??Nausea and vomiting??R11.2 Ordered: ondansetron 4 mg oral disintegrating strip, 4 mg = 1 EA, Oral, TID, X 5 days, # 15 EA, 0 Refill(s), 12/29/23 13:35:00 EDT, 170, cm, 06/07/23 9:24:00 EDT, Height/Length Dosing, 84.2, kg, 06/07/23 9:24:00 EDT, Weight Dosing Discharge Patient, 12/24/23 13:35:00 EDT, Home Independently, Constant Indicator ?? Orders: Urine Culture, Urine, Stat collect, ST - Stat, 12/24/23 13:00:25 EDT, Once, Nurse collect, Collected, 12/24/23 13:00:25 EDT, Print Label, [id number] Patient Education Nausea and Vomiting, Adult, [id number] Follow Up With When Contact Information Asya Hand MD Within 1 [address] [place] [phone] ?? Additional Instructions: Diagnostic Tests Pending * Urine Culture 12/24/23 Functional Status 12/24/23 Family Member Travel History No recent t ravel Recent Travel History No recent travel Other exposure to Infectious Disease Non e Immunizations Given and Recorded Vaccine Date Status Refusal Reason SARS-CoV-2 (COVID-19) mRNA-1273 vaccine 08/26/21 R ecorded SARS-CoV-2 (COVID-19) mRNA-1273 vaccine 01/20/21 R ecorded SARS-CoV-2 (COVID-19) mRNA-1273 vaccine 12/26/20 R ecorded influenza virus vaccine, live 1 10/26/21 Recorded influenza virus vaccine, live 2 07/03/20 [...] DAY, # 90 tab, 3 Refill(s), Pharmacy: [facility], 170.18, cm, 09/16/22 6:46:00 EST, Height/Length Dosing, 94.3, kg, 09/16/22 6:46:00 EST, Weight Dosing Start Date: 10/12/22 Status: Ordered diphenoxylate-atropine 2.5 mg-0.025 mg oral tablet 30 EA, TAKE ONE TABLET BY MOUTH EVERY 6 HOURS NEEDED, 0 Refill(s) Start Date: 11/09/22 Status: Ordered FLUoxetine 20 mg oral capsule 3 cap, Oral, Daily, # 270 cap, 3 Refill(s), Pharmacy: [facility]58, 170, cm, 03/06/22 13:18:00 EDT, Height/Length Dosing, 86, kg, 03/06/22 13:18:00 EDT, Weight Dosing Start Date: 07/06/22 Status: Ordered hydrocortisone 2.5% topical cream See Instructions, PRN rash, apply in a thin film to the affected skin and rub in gently and completely, use no more than 3 times daily, # 454 g, 1 Refill(s), Pharmacy: [facility] #58, 170.18, cm, 09/16/22 6:46:00 EST, Height/Length Dosing, 94.3, kg, 09/16/22 6:46:00 EST, Weight Dosing Start Date: 09/24/22 Status: Ordered Incruse Ellipta 62.5 mcg/inh inhalation powder 1 EA, Inhale, every 24 hr, doses should be taken at least 24 hours apart, # 30 EA, 11 Refill(s), Pharmacy: [facility]58 Start Date: 02/11/22 Stop Date: 02/06/23 Status: Ordered Keppra 250 mg oral tablet 500 mg = 2 tab, Oral, BID, # 120 tab, 5 Refill(s), Pharmacy: [facility] #58, 170.18, cm, 09/16/22 6:46:00 EST, Height/Length Dosing, 94.3, kg, 09/16/22 6:46:00 EST, Weight Dosing Start Date: 09/19/22 Stop Date: 03/18/23 Status: Ordered losartan 50 mg oral tablet 50 mg = 1 tab, Oral, Daily, # 90 tab, 3 Refill(s), Pharmacy: [facility] #58, 170.18, cm, 09/16/22 6:46:00 EST, Height/Length Dosing, 94.3, kg, 09/16/22 6:46:00 EST, Weight Dosing Start Date: 09/19/22 Stop Date: 09/14/23 Status: Ordered Lyrica 300 mg oral capsule 300 mg = 1 cap, Oral, Daily, # 28 cap, 1 Refill(s), Pharmacy: [facility] #58, 170, cm, 03/06/22 13:18:00 EDT, Height/Length Dosing, 86, kg, 03/06/22 13:18:00 EDT, Weight Dosing Start Date: 08/17/22 Stop Date: 10/12/22 Status: Ordered metoprolol succinate 25 mg oral tablet, extended release 25 mg = 1 tab, Oral, Daily, # 90 tab, 3 Refill(s), Pharmacy: [facility] #58, 170.18, cm, 09/16/22 6:46:00 EST, Height/Length [...] Daily, # 14 patches, 1 Refill(s), Pharmacy: [facility] #58, 170.18, cm, 09/16/22 6:46:00 EST, Height/Length Dosing, 94.3, kg, 09/16/22 6:46:00 EST, Weight Dosing Start Date: 09/19/22 Stop Date: 10/17/22 Status: Ordered omeprazole 20 mg oral delayed release capsule 1 cap, Oral, Daily, # 90 cap, 3 Refill(s), Pharmacy: [facility] #58, 170, cm, 03/06/22 13:18:00 EDT, Height/Length Dosing, 86, kg, 03/06/22 13:18:00 EDT, Weight Dosing Start Date: 04/27/22 Status: Ordered ondansetron 4 mg oral disintegrating strip 4 mg = 1 EA, Oral, TID, X 5 days, # 15 EA, 0 Refill(s), 12/29/23 12:35:00 PM CDT, 170, cm, 06/07/23 9:24:00 EDT, Height/Length Dosing, 84.2, kg, 06/07/23 9:24:00 EDT, Weight Dosing Start Date: 12/24/23 Stop Date: 12/29/23 Status: Ordered ondansetron 4 mg oral tablet 4 mg = 1 tab, Oral, every 8 hr, X 5 days, # 15 tab, 0 Refill(s), 12/29/23 12:39:00 PM CDT, Pharmacy: [facility] #58, 170, cm, 06/07/23 9:24:00 EDT, Height/Length Dosing, 84.2, kg, 06/07/23 9:24:00 EDT, Weight Dosing Start Date: 12/24/23 Stop Date: 12/29/23 Status: Ordered ondansetron 8 mg oral tablet 20 EA, TAKE ONE TABLET BY MOUTH EVERY 6 TO 8 HOURS NEEDED, 0 Refill(s) Start Date: 11/09/22 Status: Ordered pregabalin 300 mg oral capsule 28 EA, TAKE ONE CAPSULE BY MOUTH EVERY DAY, 0 Refill(s) Start Date: 11/09/22 Status: Ordered rosuvastatin 10 mg oral tablet 1 tab, Oral, Daily, # 90 tab, 3 Refill(s), Pharmacy: [facility] #58, 170, cm, 03/06/22 13:18:00 EDT, Height/Length Dosing, 86, kg, 03/06/22 13:18:00 EDT, Weight Dosing Start Date: 07/22/22 Status: Ordered Send to [facility] Send to [facility], Send to [facility], Supply, See instructions, # 1 EA, 0 Refill(s) Start Date: 05/21/22 Status: Ordered Senna 8.6 mg oral tablet See Instructions, TAKE TWO TABLETS BY MOUTH EVERY DAY NEEDED FOR 14 DAYS, # 28 tab, 3 Refill(s),Pharmacy: [facility] #58, 170, cm, 03/06/22 13:18:00 EDT, Height/Length [...] BEDTIME, # 90 tab, 0 Refill(s), Pharmacy: [facility] #58, 170, cm, 03/06/22 13:18:00 EDT, Height/Length Dosing, 86, kg, 03/06/22 13:18:00 EDT, Weight Dosing Start Date: 08/15/22 Status: Ordered Mental Status 12/24/23 Eye Opening Response Sydnee Spontaneous ly Best Verbal Response [place] Oriented Best Motor Response Sydnee Obeys comman ds [place] Coma Score 15 Problem List Condition Confirmation [...] Source Comment: Overview: 02/05/2016 Coronary angiogram at [facility]: LAD mid 50%, OM1 long 40%, RCA [...] if Indicated and C ulture if Indicated 12/24/23 Urinalysis Microscopic 12/24/23 SARS-CoV-2 (COVID-19) RNA (ID Now) .Manual Differential ([facility]) 12/24/23 CBC w/ Diff 12/24/23 Comprehensive Metabolic Panel 12/24/23 Lactic Acid 12/24/23 Lipase Level 12/24/23 Magnesium Level 12/24/23 Most recent to oldest [Reference Range]: 1 WBC [5.0-10.0 x10^3/mcL] 11.3 x10^3/mcL *HI* (12/24/23 11:13 AM) RBC [4.1-5.3 x10^6/mcL] 4.6 x10^6/mcL (12/24/23 11:13 AM) Segs Man [40-75 %] 88 % *HI* (12/24/23 11: AM) Lymph Man [20-50 %] 9 % *LOW* (12/24/23 11: AM) [place] Man [2-15 %] 2 % (12/24/23 11: AM) Eos Man [1-6 %] 0 % *LOW* (12/24/23 11:13 AM) BUN [7-18 mg/dL] 16 mg/dL (12/24/23 11:13 AM) UA Color Dark Yellow (12/24/23 1:00 PM) UA WBC [0-3] 0-3 (12/24/23 1:00 PM) Glucose Level [74-106 mg/dL] 138 mg/dL *HI* (12/24/23 11:13 AM) Lymph, Atyp Man 1 % *NA* (12/24/23 11:13 AM) Potassium Level [3.5-5.1 mmol/L] 4.0 mmo l/L (12/24/23 11:13 AM) MCV [80.0-96.0 fL] 90.6 fL (12/24/23 11:13 AM) UA Urobilinogen Positive *ABN* (12/24/23 1:00 PM) RBC Morph Normal (12/24/23 11:13 AM) UA Bili [Negative] 1+ *ABN* (12/24/23 1:00 PM) UA Ketones 1+ *ABN* (12/24/23 1:00 PM) AST [15-37 unit/L] 24 unit/L (12/24/23 11:13 AM) ALT [14-59 unit/L] 19 unit/L (12/24/23 11:13 AM) MCHC [31.0-35.0 g/dL] 34.3 g/dL (12/24/23 11:13 AM) Sodium Level [136-145 mmol/L] 134 mmol/L *LOW* (12/24/23 11: AM) UA RBC [0-2] 0-2 (12/24/23 1:00 PM) UA Leuk Est Negative (12/24/23 1:00 PM) UA Nitrite Negative (12/24/23 1:00 PM) UA Glucose [Negative] Negative (12/24/23 1:00 PM) Hct [37.0-47.0 %] 41.4 % (12/24/23 11: AM) UA Bacteria Moderate /HPF *ABN* (12/24/23 1: PM) Lipase Level [16-77 unit/L] 25 unit/L 1 (12/24/23 11:13 AM) Calcium Level [8.5-10.1 mg/dL] 8.9 mg/dL (12/24/23 11: AM) Albumin Level [3.4-5.0 g/dL] 3.2 g/dL *LOW* (12/24/23 11: AM) Protein Total [6.4-8.2 g/dL] 7.4 g/dL (12/24/23 11:13 AM) UA Protein Trace *ABN* (12/24/23 1:00 PM) MCH [26.0-32.0 pg] 31.1 pg (12/24/23 11:13 AM) Magnesium Level [1.8-2.4 mg/dL] 1.9 mg/d L (12/24/23 11:13 AM) Bilirubin Total [0.2-1.0 mg/dL] 1.2 mg/d L *HI* (12/24/23 11:13 AM) Hgb [12.0-16.0 g/dL] 14.2 g/dL (12/24/23 11:13 AM) Alk Phos [46-146 unit/L] 85 unit/L (12/24/23 11:13 AM) UA Blood Trace *ABN* (12/24/23 1:00 PM) UA Mucous Few /HPF *ABN* (12/24/23 1:00 PM) Band Man [0-5 %] 0 % (12/24/23 11:13 AM) UA Spec Grav 1.025 *NA* (12/24/23 1:00 PM) Platelets [130-450 x10^3/mcL] 226 x10^3/ mcL (12/24/23 11:13 AM) CO2 [21-32 mmol/L] 25 mmol/L (12/24/23 11:13 AM) Lactic Acid Lvl [0.7-2.0 mmol/L] 1.7 mmo l/L (12/24/23 11:13 AM) UA Squam Epithelial [None Seen] Moderate *ABN* (12/24/23 1:00 PM) UA pH 6.0 *NA* (12/24/23 1:00 PM) eGFR Non-AA [>=60] 56 *LOW* (12/24/23 11:13 AM) eGFR AA [>=60] 56 *LOW* (12/24/23 11:13 AM) UA Appear Hazy *ABN* (12/24/23 1:00 PM) Chloride Level [98-107 mmol/L] 99 mmol/L (12/24/23 11:13 AM) RDW-CV [11.5-14.5 %] 12.5 % (12/24/23 11:13 AM) Slide Review Man Diff (12/24/23 11:13 AM) UA Culture Ind?. Indicated (12/24/23 1:00 PM) Abs Neut Man 9.9 x10^3/mcL *NA* (12/24/23 11:13 AM) Creatinine Level [0.55-1.02 mg/dL] 1.12 mg/dL *HI* (12/24/23 11:13 AM) SARS-CoV-2 (COVID-19) RNA (ID Now) [Not Detected] Not Detected (12/24/23 11:33 AM) Baso Man [0-1 %] 0 % (12/24/23 11:13 AM) 1Interpretive Data: Effective 07/15/22, [facility] has switched to a revised Lipase test.Note new ReferenceRange. Vital Signs Most recent to oldest [Reference Range]: 1 2 3 Temperature Temporal Artery [36-38 Deg C] 35.9 Deg C *LOW* (12/24/23 10:44 AM) Peripheral Pulse Rate [60-100 bpm] 66 bpm (12/24/23 1:13 PM) 81 bpm (12/24/23 10:44 AM) Heart Rate Monitored [60-100 bpm] 68 bpm (12/24/23 1:13 PM) 68 bpm (12/24/23 12:40 PM) 71 bpm (12/24/23 12:12 PM) Respiratory Rate [12-24 br/min] 12 br/min (12/24/23 1:13 PM) 10 br/min *LOW* (12/24/23 12:40 PM) 12 br/min (12/24/23 12:12 PM) Blood Pressure [90-140/60-90 mmHg] 104/72mmHg (12/24/23 1:13 PM) 89/67mmHg *LOW* (12/24/23 12:40 PM) 94/66mmHg (12/24/23 12:12 PM) Mean Arterial Pressure, Cuff [65-140 mmHg] 83 mmHg (12/24/23 1:13 PM) 74 mmHg (12/24/23 12:40 PM) 75 mmHg (12/24/23 12:12 PM) Weight Estimated 81.8 kg (12/24/23 10:44 AM) Body Mass Index Estimated 28.3 kg/m2 (12/24/23 10:44 AM) Height/Length Estimated 170 cm (12/24/23 10:44 AM) Social History Social History Type Response Tobacco Current everyday tob acco user Tobacco Use:. 1/2 pack since 01/2022 prior was 1 PPD per day. 40 year(s). Total pack years: 40. Sex Female Hospital Discharge Instructions Patient Education 12/24/2023 12:36:56 Nausea and Vomiting, Adult, [id number]-[id number] Nausea and Vomiting, Adult Nausea is feeling that you have an upset stomach and that you are about to vomit. Vomiting is when food in your stomach forcefully comes out of your mouth. Vomiting can make you feel weak. If you vomit, or if you are not able to drink enough fluids, you may not have enough water in your body (get dehydrated). If you do not have enough water in your body, you may: ??? Feel tired. ??? Feel thirsty. ??? Have a dry mouth. ??? Have cracked lips. ??? Pee (urinate) less often. Older adults and people with other diseases or a weak body defense system (immune system) are at higher risk for not having enough water in the body. If you feel like you may vomit or you vomit, it is important to follow instructions from your doctor about how to take care of yourself. Follow these instructions at home: Watch your symptoms for any changes. Tell your doctor about them. Eating and drinking ??? Take an ORS (oral rehydration solution). This is a drink that is sold at pharmacies and stores. ??? Drink clear fluids in small amounts as you are able, such as: ??? Water. ??? Ice chips. ??? Fruit juice that has water added (diluted fruit juice). ??? Low-calorie sports drinks. ??? Eat bland, zwos-yu-hzuxid foods in small amounts as you are able, such as: ??? Bananas. ??? Applesauce. ??? Rice. ??? Low-fat (lean) meats. ??? Alicia. ??? Crackers. ??? Avoid drinking fluids that have a lot of sugar or caffeine in them. This includes energy drinks, sports drinks, and soda. ??? Avoid alcohol. ??? Avoid spicy or fatty foods. General instructions ??? Take gmov-bcl-cvbdsho and prescription medicines only as told by your doctor. ??? Drink enough fluid to keep your pee (urine) pale yellow. ??? Wash your hands often with soap and water for at least 20 seconds. If you cannot use soap and water, use hand internal security manager. ??? Make sure that everyone in your home washes their hands well and often. ??? Rest at home until you feel better. ??? Watch your condition for any changes. ??? Take slow and deep breaths when you feel like you may vomit. ??? Keep all follow-up visits. Contact a doctor if: ??? Your symptoms get worse. ??? You have new symptoms. ??? You have a fever. ??? You cannot drink fluids without vomiting. ??? You feel like you may vomit for more than 2 days. ??? You feel light-headed or dizzy. ??? You have a headache. ??? You have muscle cramps. ??? You have a rash. ??? You have pain while peeing. Get help right away if: ??? You have pain in your chest, neck, arm, or jaw. ??? You feel very weak or you faint. ??? You vomit again and again. ??? You have vomit that is bright red or looks like black coffee grounds. ??? You have bloody or black poop (stools) or poop that looks like tar. ??? You have a very bad headache, a stiff neck, or both. ??? You have very bad pain, cramping, or bloating in your belly (abdomen). ??? You have trouble breathing. ??? You are breathing very quickly. ??? Your heart is beating very quickly. ??? Your skin feels cold and clammy. ??? You feel confused. ??? You have signs of losing too much water in your body, such as: ??? Dark pee, very little pee, or no pee. ??? Cracked lips. ??? Dry mouth. ??? Sunken eyes. ??? Sleepiness. ??? Weakness. These symptoms may be an emergency. Get help right away. Call 911. ??? Do not wait to see if the symptoms will go away. ??? Do not drive yourself to the hospital. Summary ??? Nausea is feeling that you have an upset stomach and that you are about to vomit. Vomiting is when food in your stomach comes out of your mouth. ??? Follow instructions from your doctor about eating and drinking. ??? Take yunn-prf-lccqjrz and prescription medicines only as told by your doctor. ??? Contact your doctor if your symptoms get worse or you have new symptoms. ??? Keep all follow-up visits. This information is not intended to replace advice given to you by your health care provider. Make sure you discuss any questions you have with your health care provider. Document Revised: 03/19/2022 Document Reviewed: 03/19/2022 [employer] Patient Education ?? 2022 [email or web address] ([email or web address]). Follow Up Care 12/24/2023 10:42:57 With:Asya Hand MD Address: [address] [address]- When:1 month Respiratory therapy Hospital Progress note * Elham Clements: PERFORM Event Display: Respiratory Therapy Progress Note Authored Date: [id number] 1120: Called by RN to give pt a nebulizer tx. Pt here for N/V/D. States she didn't take her MDI this morning. RN reports having to put her onto 3L O2 a little bit ago for SpO2 of 85% while sleeping. Pt reports that she uses 3L at night but doesn't typically require any during the day. Respirations are normal & unlabored. Reports some pain in her chest the last few days. BS are mostly clear w/ just a few fine crackles in the RLL. She is lying w/ her right side down. States she uses BID Symbicort & PRN Albuterol at home. Electronically Signed on 12/24/23 04:34 PM Elham Clements Physician Emergency department Note * Graeme Hammond MD: PERFORM Event Display: ED Note Physician Authored Date: [id number] MAD[place] COBB :1965 Age:58 years Sex:Female Visit Date:12/24/2023 Primary Care Physician: Asya Hand MD Basic Information Time Seen: Graeme Hammond MD / 12/24/2023 10:49 Chief Complaint I have a staph infection r/t diverticulitis, I think I still have that too. I have been having N/V/D for multiple days now. PT states no one is sick around her. I was supposed to do a stool sampleand I have been so weak I haven't been able to get here History Of Present Illness: Patient is a??58-year-old female??presenting with abdominal pain nausea and vomiting. ??Patient states that??for the last 4 days she has had significant nausea and vomiting. ??Did have diarrhea that day however since then has not had any??bowel movements??but has been passing gas. ??She also endorses abdominal pain. ??She describes as a??6 out of 10 lower abdominal pain that is sharp??comes and goes but never goes away completely.?? Nothing seems to improve??or worsen??her symptoms. ??States itfeels similar to when she has had diverticulitis in the past presents today for further evaluation. Review of Systems: ROS as per HPI Physical Exam Vitals & Measurements T:??35.9?C ??(Temporal Artery)?? HR:??66??(Peripheral)?? HR:??68??(Monitored)?? RR:??12?? BP:??104/72?? SpO2:??93%?? HT:??170??cm?? WT:??81.8??kg??(Estimated)?? BMI:??28.3?? Pain Score:??3?? O2 Flow Rate:??3?? O2 Therapy:??Nasal cannula?? General: Alert and oriented, No acute distress Eye: PERRL, EOMI, ??Normal ??conjunctiva HENT: Normocephalic, atraumatic Neck: Supple, non-tender, ?? Lungs: Clear to auscultation bilaterally, satting well on room air, no respiratory distress Heart: ??Normal ?? rate, ??Regular rhythm, ??No murmur Abdomen: Soft, diffuse lower quadrant tenderness noted, non-distended, ??Normal ??bowel sounds Musculoskeletal: ??Normal range of motion and strength, ??No tenderness, ?? Skin: Multiple??abrasions to the skin consistent with skin picking Neurologic: Awake, alert and oriented X4 Medical Decision Making: Patient is a 58-year-old female presenting with??abdominal pain nausea and vomiting.?Patient is well-appearing here??however tender on exam. ??Check labs, CT??x-ray and reevaluate. ??She understands agrees this plan. ? Reexamination/Reevaluation Upon reevaluation patient is feeling greatly improved.?? Labs were reassuring urinalysis outside infection. ??CT??demonstrates no acute findings. ??Given that she is improved here she will be discharged with strict return cautions. ??She understands agrees to this plan. Assessment/Plan 1.??Abdominal pain??R10.9 Ordered: ondansetron 4 mg oral disintegrating strip, 4 mg = 1 EA, Oral, TID, X 5 days, # 15 EA, 0 Refill(s),12/29/23 13:35:00 EDT, 170, cm, 06/07/23 9:24:00 EDT, Height/Length Dosing, 84.2, kg, 06/07/23 9:24:00 EDT, Weight Dosing Discharge Patient, 12/24/23 13:35:00 EDT, Home Independently, Constant Indicator ?? 2.??Nausea and vomiting??R11.2 Ordered: ondansetron 4 mg oral disintegrating strip, 4 mg = 1 EA, Oral, TID, X 5 days, # 15 EA, 0 Refill(s),12/29/23 13:35:00 EDT, 170, cm, 06/07/23 9:24:00 EDT, Height/Length Dosing, 84.2, kg, 06/07/23 9:24:00 EDT, Weight Dosing Discharge Patient, 12/24/23 13:35:00 EDT, Home Independently, Constant Indicator ?? Orders: Urine Culture, Urine, Stat collect, ST - Stat, 12/24/23 13:00:25 EDT, Once, Nurse collect, Collected, 12/24/23 13:00:25 EDT, Print Label, [id number] Patient Education Nausea and Vomiting, Adult, Uoqs-[id number]-[id number] Follow Up With When Contact Information Asya Hand MD Within 1 [address] [place] [phone]- Additional Instructions: Medication Reconciliation Changed ondansetron (ondansetron 4 mg oral disintegrating strip)1 Each Oral (given by mouth) 3 times a day for 5 Days. Refills: 0. ?? ondansetron (ondansetron 8 mg oral tablet)20 EA, TAKE ONE TABLET BY MOUTH EVERY 6 TO 8 HOURS NEEDED. ?? Unchanged albuterol (Albuterol (Eqv-ProAir HFA) 90 [...] by mouth) every day. Refills: 3. ?? pregabalin (Lyrica 300 mg oral capsule)1 [...] Administration Given 0.9% NaCl bolus, 1 L, Medication Bolus 0.9% NaCl bolus, 1 L, Medication Bolus ipratropium-albuterol 0.5 mg-2.5 mg/3 mL inhalation solution, 3 mL, Inhale Ofirmev, 1000 mg, IV Piggyback Toradol, 15 mg, IV Push Zofran, 4 mg, IV Push Allergies ampicillin??(Facial [...] and Differential?? LATEST RESULTS?? HISTORICAL RESULTS?? WBC?? 12/24/23 11:13?? 11.3 ??High?? 06/07/23?? 10.6 ??High?? RBC?? 12/24/23 11:13?? 4.6?? 06/07/23?? 4.6?? Hgb?? 12/24/23 11:13?? 14.2?? 06/07/23?? 14.6?? Hct?? 12/24/23 11:13?? 41.4?? 06/07/23?? 43.0?? MCV?? 12/24/23 11:13?? 90.6?? 06/07/23?? 93.3?? MCH?? 12/24/23 11:13?? 31.1?? 06/07/23?? 31.7?? MCHC?? 12/24/23 11:13?? 34.3?? 06/07/23?? 34.0?? RDW-CV?? 12/24/23 11:13?? 12.5?? 06/07/23?? 13.1?? Platelets?? 12/24/23 11:13?? 226?? 06/07/23?? 263?? Segs Man?? 12/24/23 11:13?? 88 ??High? Lymph Man?? 12/24/23 11:13?? 9 ??Low? [place] Man?? 12/24/23 11:13?? 2? Eos Man?? 12/24/23 11:13?? 0 ??Low? Baso Man?? 12/24/23 11:13?? 0? Band Man?? 12/24/23 11:13?? 0? Lymph, Atyp Man?? 12/24/23 11:13?? 1? Abs Neut Man?? 12/24/23 11:13?? 9.9? RBC Morph?? 12/24/23 11:13?? Normal? Slide Review?? 12/24/23 11:13?? Man Diff? Routine Chemistry?? LATEST RESULTS?? HISTORICAL RESULTS?? Sodium Level?? 12/24/23 11:13?? 134 ??Low?? 06/07/23?? 136?? Potassium Level?? 12/24/23 11:13?? 4.0?? 06/07/23?? 4.0?? Chloride Level?? 12/24/23 11:13?? 99?? 06/07/23?? 98?? CO2?? 12/24/23 11:13?? 25?? 06/07/23?? 30?? Alk Phos?? 12/24/23 11:13?? 85?? 04/09/23?? 62?? AST?? 12/24/23 11:13?? 24?? 04/09/23?? 36?? ALT?? 12/24/23 11:13?? 19?? 04/09/23?? 33?? BUN?? 12/24/23 11:13?? 16?? 06/07/23?? 16?? Glucose Level?? 12/24/23 11:13?? 138 ??High?? 06/07/23?? 120 ??High?? Creatinine Level?? 12/24/23 11:13?? 1.12 ??High?? 06/07/23?? 1.08 ??High?? eGFR AA?? 12/24/23 11:13?? 56 ??Low?? 06/07/23?? 59 ??Low?? eGFR Non-AA?? 12/24/23 11:13?? 56 ??Low?? 06/07/23?? 59 ??Low?? Calcium Level?? 12/24/23 11:13?? 8.9?? 06/07/23?? 9.0?? Protein Total?? 12/24/23 11:13?? 7.4?? 04/09/23?? 7.4?? Albumin Level?? 12/24/23 11:13?? 3.2 ??Low?? 04/09/23?? 3.6?? Bilirubin Total?? 12/24/23 11:13?? 1.2 ??High?? 04/09/23?? 0.6?? Lactic Acid Lvl?? 12/24/23 11:13?? 1.7?? 04/09/23?? 1.2?? Lipase Level?? 12/24/23 11:13?? 25?? 04/09/23?? 36?? Magnesium Level?? 12/24/23 11:13?? 1.9?? 06/07/23?? 2.2? UA Macroscopic?? LATEST RESULTS?? HISTORICAL RESULTS?? UA Color?? 12/24/23 13:00?? Dark Yellow?? 04/09/23?? Dark Yellow?? UA Appear?? 12/24/23 13:00?? Hazy Abnormal?? 04/09/23?? Clear?? UA Glucose?? 12/24/23 13:00?? Negative?? 04/09/23?? Negative?? UA Bili?? 12/24/23 13:00?? 1+ Abnormal?? 04/09/23?? Negative?? UA Ketones?? 12/24/23 13:00?? 1+ Abnormal?? 04/09/23?? 1+ Abnormal?? UA Spec Grav?? 12/24/23 13:00?? 1.025?? 04/09/23?? >=1.030?? UA Blood?? 12/24/23 13:00?? Trace Abnormal?? 04/09/23?? Negative?? UA pH?? 12/24/23 13:00?? 6.0?? 04/09/23?? 6.0?? UA Protein?? 12/24/23 13:00?? Trace Abnormal?? 04/09/23?? Trace Abnormal?? UA Urobilinogen?? 12/24/23 13:00?? Positive Abnormal?? 04/09/23?? Normal?? UA Nitrite?? 12/24/23 13:00?? Negative?? 04/09/23?? Negative?? UA Leuk Est?? 12/24/23 13:00?? Negative?? 04/09/23?? Trace Abnormal?? UA Culture Ind?.?? 12/24/23 13:00?? Indicated?? 04/09/23?? Indicated? UA Microscopic?? LATEST RESULTS?? HISTORICAL RESULTS?? UA WBC?? 12/24/23 13:00?? 0-3?? 04/09/23?? 0-3?? UA RBC?? 12/24/23 13:00?? 0-2?? 04/09/23?? 0-2?? UA Squam Epithelial?? 12/24/23 13:00?? Moderate Abnormal?? 04/09/23?? Moderate Abnormal?? UA Mucous?? 12/24/23 13:00?? Few Abnormal?? 04/09/23?? Moderate Abnormal?? UA Bacteria?? 12/24/23 13:00?? Moderate Abnormal?? 04/09/23?? Moderate Abnormal? Infectious Disease?? LATEST RESULTS?? SARS-CoV-2 (COVID-19) RNA (ID Now)?? 12/24/23 11:33?? Not Detected? Electronically Signed on 12/24/23 01:39 PM Graeme Hammond MD * Graeme Hammond MD: PERFORM Event Display: ED Note Physician Authored Date: [id number] MADISON COBB :1965 Age:58 years Sex:Female Visit Date:12/24/2023 Primary Care Physician: Asya Hand MD Discharge Instructions We would like to thank you for allowing us to assist you with your healthcare needs. The following includes patient education materials and information regarding your injury/illness. Diagnosis from Today's Visit Abdominal pain Nausea and vomiting Discharge Vitals Temperature??(Temporal Artery) 96.6 ??F (35.9 ??C) Heart Rate??(Peripheral) 66 Heart Rate??(Monitored) 68 Respiratory Rate?? 12 Blood Pressure?? 104/72?? SpO2?? 93% Height?? 66.93 in (170 cm) Weight??(Estimated) 180.37 lb (81.8 kg) BMI?? 28.3 Allergies ampicillin??(Facial swelling, Skin rash) azithromycin??(Itching) codeine??(Itching) sulfa drugs??(Facial swelling, Skin rash) ALPRAZolam SUMAtriptan amoxicillin??(Unknown) iodinated radiocontrast dyes penicillins What to Do Next Instructions from Your Care Team Today you were seen in the emergency department for your nausea and vomiting. We did a thorough exam, labs, CAT scan and gave you medications. Your results did not show a medical emergency, because of this you can be discharged to follow up with your primary care physician as soon as you are able to. Please return to the emergency department for any new or worsening symptoms. You Need to Schedule the Following Appointments Follow Up with??Asya Hand MD When:??Within 1 month Where: [address] [address]- You were treated today on an emergency [...] How Much When Why Instructions Next Dose Changed ondansetron (ondansetron 4 mg oral disintegrating strip) 1 Each Oral (given by mouth) 3 times a day Abdominal pain Nausea and vomiting Duration: 5 Days Printed Prescription Changed ondansetron (ondansetron 8 mg oral tablet) 20 EA, TAKE ONE TABLET BY MOUTH EVERY 6 TO 8 HOURS NEEDED ?? Unchanged albuterol (Albuterol (Eqv-ProAir HFA) 90 mcg/ [...] Oral (given by mouth) Every day Unchanged pregabalin (Lyrica 300 mg oral capsule) [...] least 24 hours apart ?? Education Materials Nausea and Vomiting, Adult Nausea is feeling that you have an upset stomach and that you are about to vomit. Vomiting is when food in your stomach forcefully comes out of your mouth. Vomiting can make you feel weak. If you vomit, or if you are not able to drink enough fluids, you may not have enough water in your body (get dehydrated). If you do not have enough water in your body, you may: ? Feel tired. ? Feel thirsty. ? Have a dry mouth. ? Have cracked lips. ? Pee (urinate) less often. Older adults and people with other diseases or a weak body defense system (immune system) are at higher risk for not having enough water in the body. If you feel like you may vomit or you vomit, it is important to follow instructions from your doctor about how to take care of yourself. Follow these instructions at home: Watch your symptoms for any changes. Tell your doctor about them. Eating and drinking ? Take an ORS (oral rehydration solution). This is a drink that is sold at pharmacies and stores. ? Drink clear fluids in small amounts as you are able, such as: ? Water. ? Ice chips. ? Fruit juice that has water added (diluted fruit juice). ? Low-calorie sports drinks. ? Eat bland, eroh-ya-jixlgp foods in small amounts as you are able, such as: ? Bananas. ? Applesauce. ? Rice. ? Low-fat (lean) meats. ? Alicia. ? Crackers. ? Avoid drinking fluids that have a lot of sugar or caffeine in them. This includes energy drinks, sports drinks, and soda. ? Avoid alcohol. ? Avoid spicy or fatty foods. General instructions ? Take tsbo-ynt-qzhftxc and prescription medicines only as told by your doctor. ? Drink enough fluid to keep your pee (urine) pale yellow. ? Wash your hands often with soap and water for at least 20 seconds. If you cannot use soap and water, use hand internal security manager. ? Make sure that everyone in your home washes their hands well and often. ? Rest at home until you feel better. ? Watch your condition for any changes. ? Take slow and deep breaths when you feel like you may vomit. ? Keep all follow-up visits. Contact a doctor if: ? Your symptoms get worse. ? You have new symptoms. ? You have a fever. ? You cannot drink fluids without vomiting. ? You feel like you may vomit for more than 2 days. ? You feel light-headed or dizzy. ? You have a headache. ? You have muscle cramps. ? You have a rash. ? You have pain while peeing. Get help right away if: ? You have pain in your chest, neck, arm, or jaw. ? You feel very weak or you faint. ? You vomit again and again. ? You have vomit that is bright red or looks like black coffee grounds. ? You have bloody or black poop (stools) or poop that looks like tar. ? You have a very bad headache, a stiff neck, or both. ? You have very bad pain, cramping, or bloating in your belly (abdomen). ? You have trouble breathing. ? You are breathing very quickly. ? Your heart is beating very quickly. ? Your skin feels cold and clammy. ? You feel confused. ? You have signs of losing too much water in your body, such as: ? Dark pee, very little pee, or no pee. ? Cracked lips. ? Dry mouth. ? Sunken eyes. ? Sleepiness. ? Weakness. These symptoms may be an emergency. Get help right away. Call 911. ? Do not wait to see if the symptoms will go away. ? Do not drive yourself to the hospital. Summary ? Nausea is feeling that you have an upset stomach and that you are about to vomit. Vomiting is when food in your stomach comes out of your mouth. ? Follow instructions from your doctor about eating and drinking. ? Take wqhs-soe-xzfvoej and prescription medicines only as told by your doctor. ? Contact your doctor if your symptoms get worse or you have new symptoms. ? Keep all follow-up visits. This information is not intended to replace advice given to you by your health care provider. Make sure you discuss any questions you have with your health care provider. Document Revised: 03/19/2022 Document Reviewed: 03/19/2022 [employer] Patient Education ?? 2022 [employer] Tests Performed Medications and Immunizations Administered Given 0.9% NaCl bolus, 1 L, Medication Bolus 0.9% NaCl bolus, 1 L, Medication Bolus ipratropium-albuterol 0.5 mg-2.5 mg/3 mL inhalation solution, 3 mL, Inhale Ofirmev, 1000 mg, IV Piggyback Toradol, 15 mg, IV Push Zofran, 4 mg, IV Push Lab Test Name Test Result Date/Time WBC 11.3 x10^3/mcL 12/24/2023 11:13 EDT RBC 4.6 x10^6/mcL 12/24/2023 11:13 EDT Hgb 14.2 g/dL 12/24/2023 11:13 EDT Hct 41.4 % 12/24/2023 11:13 EDT MCV 90.6 fL 12/24/2023 11:13 EDT MCH 31.1 pg 12/24/2023 11:13 EDT MCHC 34.3 g/dL 12/24/2023 11:13 EDT RDW-CV 12.5 % 12/24/2023 11:13 EDT Platelets 226 x10^3/mcL 12/24/2023 11:13 EDT Segs Man 88 % 12/24/2023 11:13 EDT Lymph Man 9 % 12/24/2023 11:13 EDT [place] Man 2 % 12/24/2023 11:13 EDT Eos Man 0 % 12/24/2023 11:13 EDT Baso Man 0 % 12/24/2023 11:13 EDT Band Man 0 % 12/24/2023 11:13 EDT Lymph, Atyp Man 1 % 12/24/2023 11:13 EDT Abs Neut Man 9.9 x10^3/mcL 12/24/2023 11:13 EDT RBC Morph Normal 12/24/2023 11:13 EDT Slide Review Man Diff 12/24/2023 11:13 EDT Sodium Level 134 mmol/L 12/24/2023 11:13 EDT Potassium Level 4.0 mmol/L 12/24/2023 11:13 EDT Chloride Level 99 mmol/L 12/24/2023 11:13 EDT CO2 25 mmol/L 12/24/2023 11:13 EDT Alk Phos 85 unit/L 12/24/2023 11:13 EDT AST 24 unit/L 12/24/2023 11:13 EDT ALT 19 unit/L 12/24/2023 11:13 EDT BUN 16 mg/dL 12/24/2023 11:13 EDT Glucose Level 138 mg/dL 12/24/2023 11:13 EDT Creatinine Level 1.12 mg/dL 12/24/2023 11:13 EDT eGFR AA 56 12/24/2023 11:13 EDT eGFR Non-AA 56 12/24/2023 11:13 EDT Calcium Level 8.9 mg/dL 12/24/2023 11:13 EDT Protein Total 7.4 g/dL 12/24/2023 11:13 EDT Albumin Level 3.2 g/dL 12/24/2023 11:13 EDT Bilirubin Total 1.2 mg/dL 12/24/2023 11:13 EDT Lactic Acid Lvl 1.7 mmol/L 12/24/2023 11:13 EDT Lipase Level 25 unit/L 12/24/2023 11:13 EDT Magnesium Level 1.9 mg/dL 12/24/2023 11:13 EDT UA Color Dark Yello 12/24/2023 13:00 EDT UA Appear Hazy- Clinitek 12/24/2023 13:00 EDT UA Glucose NEGATIVE 12/24/2023 13:00 EDT UA Bili 1+ 12/24/2023 13:00 EDT UA Ketones 1+ 12/24/2023 13:00 EDT UA Spec Grav 1.025 12/24/2023 13:00 EDT UA Blood TRACE. 12/24/2023 13:00 EDT UA pH 6.0 12/24/2023 13:00 EDT UA Protein TRACE. 12/24/2023 13:00 EDT UA Urobilinogen 1.0 Uro 12/24/2023 13:00 EDT UA Nitrite NEGATIVE 12/24/2023 13:00 EDT UA Leuk Est NEGATIVE 12/24/2023 13:00 EDT SARS-CoV-2 (COVID-19) RNA (ID Now) Not Detected 12/24/2023 11:33 EDT Patient/Border Inspector Signature Patient Name:MADISON COBB I have received this information and my questions have been answered. Patient/Border Inspector Name: Patient/Border Inspector Signature: Relationship to Patient: Witness Name/Signature: Date: Electronically Signed on 12/24/23 01:38 PM Graeme Hammond MD Patient Care team information Care Team Personnel Name: Asya Hand MD Position: PowerChart View Only Member Role: Informed Provider Address: Address: [address] Care Team Related Persons Name: PHANI LIPSCOMB Name: DENITA RAO
--- OUTSIDE RECORDS SUMMARY | 2024-04-13 11:17 | XMS_ITS | Continuity of Care Document ---
Author Organization [facility] Address [address] [place] [address] Care Team Providers Care Cto Name Role Phone Asya Hand Primary Care Physician Encounter [facility] [id number] Date(s): 04/09/24 - 04/09/24 [facility] [address] [place] [address] Discharge Disposition: Home Allergies, Adverse Reactions, Alerts Substance Reaction Severity Status ampicillin 1 Facial swelling Skin rash Moderate Active codeine Itching Moderate Active amoxicillin 2 Unknown Unknown Active penicillins 3 Unknown Active sulfa drugs Facial swelling Skin rash Moderate Active ALPRAZolam 4 Unknown Active SUMAtriptan 5 Unknown Active azithromycin 6 Itching Moderate Active iodinated radiocontrast dyes 7 Unknown Active 1Pt states as a child 2Outside Source Comment: Unknown pt unsure 3as a child 4Pt states she's not allergic to this medication 12/11/18 5Pt. instructed by MD not to take due to ICH 6patient states on 03/04/2022 that she is not allergice, just finished taking it and wants it off her allergy list 7had side effect to IV contrast used for heard testing 5 years ago ( NAUSEA),, pt tells they dont use that contrast any more and had other CT po and IV contrast since with no reaction Assessment and Plan Future Appointments Immunizations Given and Recorded Vaccine Date Status Refusal Reason SARS-CoV-2 (COVID-19) mRNA-1273 vaccine 08/26/21 R ecorded SARS-CoV-2 (COVID-19) mRNA-1273 vaccine 01/20/21 R ecorded SARS-CoV-2 (COVID-19) mRNA-1273 vaccine 4/2/21 R ecorded influenza virus vaccine, live 1 [...] DAY, # 90 tab, 3 Refill(s), Pharmacy: [id number], 170.18, cm, 09/16/22 6:46:00 EST, Height/Length Dosing, 94.3, kg, 09/16/22 6:46:00 EST, Weight Dosing Start Date: 10/12/22 Status: Ordered citalopram 0 Refill(s) Start Date: 04/05/24 Status: Ordered FLUoxetine 20 mg oral capsule 3 cap, Oral, Daily, # 270 cap, 3 Refill(s), Pharmacy: [facility], 170, cm, 03/06/22 13:18:00 EDT, Height/Length Dosing, 86, kg, 03/06/22 13:18:00 EDT, Weight Dosing Start Date: 07/06/22 Status: Ordered hydrocortisone 2.5% topical cream See Instructions, PRN rash, apply in a thin film to the affected skin and rub in gently and completely, use no more than 3 times daily, # 454 g, 1 Refill(s), Pharmacy: [facility], 170.18, cm, 09/16/22 6:46:00 EST, Height/Length Dosing, 94.3, kg, 09/16/22 6:46:00 EST, Weight Dosing Start Date: 09/24/22 Status: Ordered Incruse Ellipta 62.5 mcg/inh inhalation powder 1 EA, Inhale, every 24 hr, doses should be taken at least 24 hours apart, # 30 EA, 11 Refill(s), Pharmacy: [facility] Start Date: 02/11/22 Stop Date: 02/06/23 Status: Ordered Keppra 250 mg oral tablet 500 mg = 2 tab, Oral, BID, # 120 tab, 5 Refill(s), Pharmacy: [facility], 170.18, cm, 09/16/22 6:46:00 EST, Height/Length Dosing, 94.3, kg, 09/16/22 6:46:00 EST, Weight Dosing Start Date: 09/19/22 Stop Date: 03/18/23 Status: Ordered losartan 50 mg oral tablet 50 mg = 1 tab, Oral, Daily, # 90 tab, 3 Refill(s), Pharmacy: [facility], 170.18, cm, 09/16/22 6:46:00 EST, Height/Length Dosing, 94.3, kg, 09/16/22 6:46:00 EST, Weight Dosing Start Date: 09/19/22 Stop Date: 09/14/23 Status: Ordered Lyrica 300 mg oral capsule 300 mg = 1 cap, Oral, Daily, # 28 cap, 1 Refill(s), Pharmacy: [facility], 170, cm, 03/06/22 13:18:00 EDT, Height/Length Dosing, 86, kg, 03/06/22 13:18:00 EDT, Weight Dosing Start Date: 08/17/22 Stop Date: 10/12/22 Status: Ordered metoprolol succinate 25 mg oral tablet, extended release 25 mg = 1 tab, Oral, Daily, # 90 tab, 3 Refill(s), Pharmacy: [facility], 170.18, cm, 09/16/22 6:46:00 EST, Height/Length [...] Daily, # 14 patches, 1 Refill(s), Pharmacy: [facility], 170.18, cm, 09/16/22 6:46:00 EST, Height/Length Dosing, 94.3, kg, 09/16/22 6:46:00 EST, Weight Dosing Start Date: 09/19/22 Stop Date: 10/17/22 Status: Ordered omeprazole 20 mg oral delayed release capsule 1 cap, Oral, Daily, # 90 cap, 3 Refill(s), Pharmacy: [facility], 170, cm, 03/06/22 13:18:00 EDT, Height/Length [...] Daily, # 90 tab, 3 Refill(s), Pharmacy: [facility], 170, cm, 03/06/22 13:18:00 EDT, Height/Length [...] 14 DAYS, # 28 tab, 3 Refill(s),Pharmacy: [facility], 170, cm, 03/06/22 13:18:00 EDT, Height/Length Dosing, 86, kg, 03/06/22 13:18:00 EDT, Weight Dosing Start Date: 06/15/22 Status: Ordered Symbicort 80 mcg-4.5 mcg/inh inhalation aerosol 2 puffs, Inhale, BID Start Date: 03/26/22 Status: Ordered traZODone 300 mg oral tablet See Instructions, TAKE ONE TABLET BY MOUTH AT BEDTIME, # 90 tab, 0 Refill(s), Pharmacy: [facility], 170, cm, 03/06/22 13:18:00 EDT, Height/Length [...] Active Hypoxemia Confirmed Active Hypoxia Confirmed Active Nocturnal hypoxemia Confirmed Active Low back pain Confirmed 07/19/18 Active Lower urinary tract symptoms Confirmed 07/31/18 Active Memory impairment Confirmed 04/14/20 Active Cerebrovascular accident Confirmed 09/26/12 Active Migraine Confirmed 02/25/12 Active Mixed anxiety and depressive disorder Confirmed 04/24/18 Active Muscle pain Confirmed 04/24/18 Active Myocardial infarction Confirmed 07/29/17 Active Nicotine dependence Confirmed 10/23/18 Active Sleep disorder Confirmed 07/31/18 Active Obstructive sleep apnea Confirmed Active Pain in right hip joint Confirmed [...] Source Comment: Overview: 02/05/2016 Coronary angiogram at [facility]: LAD mid 50%, OM1 long [...] Only Member Role: Informed Provider Address: Address: [id number] [place] [address] Care Team Related Persons Name: PHANI LIPSCOMB Name: DENITA RAO
--- OUTSIDE RECORDS SUMMARY | 2024-04-13 11:17 | XMS_ITS | Continuity of Care Document ---
Author Organization [facility] Address [address] [place] [address] Care Team Providers Care Business Development Executive Name Role Phone Asya Hand Primary Care Physician Encounter [facility] Date(s): 01/23/24 - 01/23/24 [facility] [address] [place] [address] Encounter Diagnosis Malaise and fatigue(Discharge Diagnosis) - 01/23/24 Other fatigue(Discharge Diagnosis) - 01/23/24 Discharge Disposition: Home or Self Care Attending Physician: Chiki Ventura MD Admitting Physician: Chiki Ventura MD Allergies, Adverse Reactions, Alerts Substance Reaction [...] 02/20/19 Recorded pneumococcal 23-polyvalent vaccine 8 07/03/20 Berrtam rded 1Result Comment: Verified by CS and [...] DAY, # 90 tab, 3 Refill(s), [facility], 170.18, cm, 09/16/22 6:46:00 EST, Height/Length Dosing, 94.3, kg, 09/16/22 6:46:00 EST, Weight Dosing Start Date: 10/12/22 Status: Ordered diphenoxylate-atropine 2.5 mg-0.025 mg oral tablet 30 EA, TAKE ONE TABLET BY MOUTH EVERY 6 HOURS NEEDED, 0 Refill(s) Start Date: 11/09/22 Status: Ordered FLUoxetine 20 mg oral capsule 3 cap, Oral, Daily, # 270 cap, 3 Refill(s), Pharmacy: [facility] #58, 170, cm, 03/06/22 13:18:00 EDT, Height/Length Dosing, 86, kg, 03/06/22 13:18:00 EDT, Weight Dosing Start Date: 07/06/22 Status: Ordered hydrocortisone 2.5% topical cream See Instructions, PRN rash, apply in a thin film to the affected skin and rub in gently and completely, use no more than 3 times daily, # 454 g, 1 Refill(s), Pharmacy: [facility] #58, 170.18, cm, 09/16/22 6:46:00 EST, Height/Length Dosing, 94.3, kg, 09/16/22 6:46:00 EST, Weight Dosing Start Date: 09/24/22 Status: Ordered Incruse Ellipta 62.5 mcg/inh inhalation powder 1 EA, Inhale, every 24 hr, doses should be taken at least 24 hours apart, # 30 EA, 11 Refill(s), Pharmacy: [facility] #58 Start Date: 02/11/22 Stop Date: 02/06/23 Status: Ordered Keppra 250 mg oral tablet 500 mg = 2 tab, Oral, BID, # 120 tab, 5 Refill(s), Pharmacy: [facility] #58, 170.18, cm, 09/16/22 6:46:00 EST, Height/Length Dosing, 94.3, kg, 09/16/22 6:46:00 EST, Weight Dosing Start Date: 09/19/22 Stop Date: 03/18/23 Status: Ordered losartan 50 mg oral tablet 50 mg = 1 tab, Oral, Daily, # 90 tab, 3 Refill(s), Pharmacy: [facility] #58, 170.18, cm, 09/16/22 6:46:00 EST, Height/Length Dosing, 94.3, kg, 09/16/22 6:46:00 EST, Weight Dosing Start Date: 09/19/22 Stop Date: 09/14/23 Status: Ordered Lyrica 300 mg oral capsule 300 mg = 1 cap, Oral, Daily, # 28 cap, 1 Refill(s), Pharmacy: [facility] #58, 170, cm, 03/06/22 13:18:00 EDT, Height/Length Dosing, 86, kg, 03/06/22 13:18:00 EDT, Weight Dosing Start Date: 08/17/22 Stop Date: 10/12/22 Status: Ordered metoprolol succinate 25 mg oral tablet, extended release 25 mg = 1 tab, Oral, Daily, # 90 tab, 3 Refill(s), Pharmacy: [facility] #58, 170.18, cm, 09/16/22 6:46:00 EST, Height/Length [...] Daily, # 14 patches, 1 Refill(s), Pharmacy: [facility] #58, 170.18, cm, 09/16/22 6:46:00 EST, Height/Length Dosing, 94.3, kg, 09/16/22 6:46:00 EST, Weight Dosing Start Date: 09/19/22 Stop Date: 10/17/22 Status: Ordered omeprazole 20 mg oral delayed release capsule 1 cap, Oral, Daily, # 90 cap, 3 Refill(s), Pharmacy: [facility] #58, 170, cm, 03/06/22 13:18:00 EDT, Height/Length [...] Daily, # 90 tab, 3 Refill(s), Pharmacy: [facility] #58, 170, cm, 03/06/22 13:18:00 EDT, Height/Length Dosing, 86, kg, 03/06/22 13:18:00 EDT, Weight Dosing Start Date: 07/22/22 Status: Ordered Send to [facility] Send to [facility], Send to [facility], Supply, See instructions, # 1 EA, 0 Refill(s) Start Date: 05/21/22 Status: Ordered Senna 8.6 mg oral tablet See Instructions, TAKE TWO TABLETS BY MOUTH EVERY DAY NEEDED FOR 14 DAYS, # 28 tab, 3 Refill(s),Pharmacy: [facility] #58, 170, cm, 03/06/22 13:18:00 EDT, Height/Length [...] BEDTIME, # 90 tab, 0 Refill(s), Pharmacy: [facility] #58, 170, cm, 03/06/22 13:18:00 EDT, Height/Length [...] following Clostridium Difficile from Stool collected on 09-AUG-2023 07:09:00 EDT tested positive for CDI. 2Outside Source Comment: Overview: 02/05/[place] [facility] [place] LAD mid 50%, OM1 long 40%, RCA [...] 2Mild Gastritis Results Laboratory List Name Date Lactic Acid 01/23/24 Respiratory Panel 2.1 ([facility]) 01/23/24 Drug Screen Urine 01/23/24 Urinalysis with Micro if Indicated and C ulture if Indicated 01/23/24 SARS-CoV-2 (COVID-19)/Flu/RSV (GeneXpert ) (COVID-19/Flu/RSV (GeneXpert)) 01/23/24 Lactic Acid 01/23/24 Alcohol Level 01/23/24 CBC w/ Diff 01/23/24 Comprehensive Metabolic Panel (CMP) 01/22 Procalcitonin 01/23/24 Troponin-I 01/23/24 Automated Diff 01/23/24 Most recent to oldest [Reference Range]: 1 2 WBC [5.0-10.0 x10^3/mcL] 8.8 x10^3/mcL (01/23/24 12:25 AM) RBC [4.1-5.3 x10^6/mcL] 5.0 x10^6/mcL (01/23/24 12:25 AM) Neutro Auto [40.0-75.0 %] 50.0 % (01/23/24 12:25 AM) Lymph Auto [20.0-50.0 %] 37.9 % (01/23/24 AM) [place] Auto [2.0-15.0 %] 9.4 % (01/23/24: AM) Basophil Auto [0.0-1.0 %] 0.8 % (01/23/24: AM) BUN [7-18 mg/dL] 12 mg/dL (01/23/24: AM) U Amph Scrn [Negative] Negative 1 (01/23/24: AM) UA Color Yellow (01/23/24 AM) Glucose Level [74-106 mg/dL] 92 mg/dL (01/23/24: AM) Potassium Level [3.5-5.1 mmol/L] 3.4 mmo l/L *LOW* (01/23/24 AM) U Benzodia Scrn [Negative] Negative (01/23/24: AM) MCV [80.0-96.0 fL] 89.3 fL (01/23/24 AM) UA Urobilinogen Normal (01/23/24: AM) UA Bili [Negative] Negative (01/23/24: AM) UA Ketones Negative (01/23/24 AM) AST [15-37 unit/L] 61 unit/L *HI* (01/23/24 AM) ALT [14-59 unit/L] 52 unit/L (01/23/24 AM) MCHC [31.0-35.0 g/dL] 34.4 g/dL (01/23/24 AM) Troponin-I [0.0-51.4 pg/mL] 6.8 pg/mL (01/23/24 AM) Sodium Level [136-145 mmol/L] 131 mmol/L *LOW* (01/23/24 AM) UA Leuk Est Negative (01/23/24: AM) UA Nitrite Negative (01/23/24 AM) UA Glucose [Negative] Negative (01/23/24: AM) Hct [37.0-47.0 %] 45.1 % (01/23/24 AM) U Cocaine Scrn [Negative] Negative (4/29/24 1:30 AM) Calcium Level [8.5-10.1 mg/dL] 9.8 mg/dL (01/23/24 12:25 AM) Albumin Level [3.4-5.0 g/dL] 3.5 g/dL (01/23/24 12:25 AM) Protein Total [6.4-8.2 g/dL] 8.2 g/dL (01/23/24 12:25 AM) UA Protein Negative (01/23/24 1:30 AM) MCH [26.0-32.0 pg] 30.7 pg (01/23/24 12:25 AM) Neutro Absolute 4.4 x10^3/mcL *NA* (01/23/24 12:25 AM) Bilirubin Total [0.2-1.0 mg/dL] 1.0 mg/d L (01/23/24 12:25 AM) Hgb [12.0-16.0 g/dL] 15.5 g/dL (01/23/24 12:25 AM) Alk Phos [46-146 unit/L] 173 unit/L *HI* (01/23/24 12:25 AM) UA Blood Negative (01/23/24 1:30 AM) Ethanol Level [0-10 mg/dL] 39 mg/dL *HI* (01/23/24 12:25 AM) UA Spec Grav 1.010 *NA* (01/23/24 1:30 AM) Platelets [130-450 x10^3/mcL] 249 x10^3/ mcL (01/23/24 12:25 AM) CO2 [21-32 mmol/L] 24 mmol/L (01/23/24 12:25 AM) U Valarie Scrn [Negative] Negative (01/23/24 1:30 AM) Lactic Acid Lvl [0.7-2.0 mmol/L] 1.5 mmo l/L (01/23/24 3:15 AM) 2.6 mmol/L 2 *CRIT* (01/23/24 12:50 AM) UA pH 7.0 *NA* (01/23/24 1:30 AM) U Opiate Scrn [Negative] Negative (01/23/24 1:30 AM) eGFR Non-AA [>=60] 67 (01/23/24 12:25 AM) eGFR AA [>=60] 67 (01/23/24 12:25 AM) UA Appear Clear (01/23/24 1:30 AM) Chloride Level [98-107 mmol/L] 93 mmol/L *LOW* (01/23/24 12:25 AM) Procalcitonin [0.00-0.50 ng/mL] <0.15 ng /mL (01/23/24 12:25 AM) U Oxy Scrn [Negative] Negative (01/23/24 1:30 AM) U PCP Scrn [Negative] Negative (01/23/24 1:30 AM) RDW-CV [11.5-14.5 %] 13.1 % (01/23/24 12:25 AM) Adenovirus RespP-BFire [Not Detected] No t Detected (01/23/24 3:15 AM) Bordetella parapertussis Res pP-BFire [Not Detected] Not Detected (01/23/24 3:15 AM) Bordetella pertussis RespP-B Fire [Not Detected] Not Detected (01/23/24 3:15 AM) Chlamydophila pneumoniae Res pP-BFire [Not Detected] Not Detected (01/23/24 3:15 AM) Coronavirus 229E (Not COVID- 19) RP-BFire [Not Detected] Not Detected (01/23/24 3:15 AM) Coronavirus HKU1 (Not COVID- 19) RP-BFire [Not Detected] Not Detected (01/23/24 3:15 AM) Coronavirus NL63 (Not COVID- 19) RP-BFire [Not Detected] Not Detected (01/23/24 3:15 AM) Coronavirus OC43 (Not COVID- 19) RP-BFire [Not Detected] Not Detected (01/23/24 3:15 AM) Human Metapneumonovirus Resp P-BFire [Not Detected] Not Detected (01/23/24 3:15 AM) Human Rhinovirus/Enterovirus RespP-BFir [Not Detected] Not Detected (01/23/24 3:15 AM) Influenza A RespP-BFire [Not Detected] N ot Detected (01/23/24 3:15 AM) Influenza B RespP-BFire [Not Detected] N ot Detected (01/23/24 3:15 AM) Mycomplasma pneumoniae RespP -BFire [Not Detected] Not Detected (01/23/24 3:15 AM) Parainfluenza Virus 1 RespP- BFire [Not Detected] Not Detected (01/23/24 3:15 AM) Parainfluenza Virus 2 RespP- BFire [Not Detected] Not Detected (01/23/24 3:15 AM) Parainfluenza Virus 3 RespP- BFire [Not Detected] Not Detected (01/23/24 3:15 AM) Parainfluenza Virus 4 RespP- BFire [Not Detected] Not Detected (01/23/24 3:15 AM) Respiratory Syncytial Virus RespP-BFire [Not Detected] Not Detected (01/23/24 3:15 AM) U THC Scr [Negative] Positive *ABN* (01/23/24 1:30 AM) U Methadone Scr [Negative] Negative (01/23/24 1:30 AM) Imm Gran Auto [0.0-0.9 %] 0.3 % (01/23/24 12:25 AM) Slide Review Not Indicated (01/23/24 12:25 AM) U Buprenorph Scr [Negative] Negative (01/23/24 1:30 AM) U mAMP Scr [Negative] Negative (01/23/24 1:30 AM) U TCA Scr [Negative] Negative (01/23/24 1:30 AM) Creatinine Level [0.55-1.02 mg/dL] 0.97 mg/dL (01/23/24 12:25 AM) SARS-CoV-2 (COVID-19) RP-BFi re [Not Detected] Not Detected 3 (01/23/24 3:15 AM) SARS-CoV-2(Covid19)PCR(GXper t COVFLURSV) [Negative] Negative (01/23/24 12:54 AM) Flu A (GXpert COVFLURSV) [Negative] Nega tive (01/23/24 12:54 AM) RSV (GXpert COVFLURSV) [Negative] Negati ve (01/23/24 12:54 AM) Flu B (GXpert COVFLURSV) [Negative] Nega tive (01/23/24 12:54 AM) Eos, Auto [1.0-6.0 %] 1.6 % (01/23/24 12:25 AM) 1Interpretive Data: These are unconfirmed screening [...] Neg (300 ng/mL) BUP Neg (10 ng/mL) 2Result Comment: Called to and verbally verified by Deepa Alex at 01/23/2024 01:00:24 EDT. 3Interpretive Data: Testing is not recommended outside of the respiratory virus season (January 24 ??? Jun 25) due to low specificity. Vital Signs Most recent to oldest [Reference Range]: 1 2 3 Temperature Temporal Artery [36-38 Deg C] 36.3 Deg C (01/23/24 12:25 AM) Peripheral Pulse Rate [60-100 bpm] 65 bpm (01/23/24 5:30 AM) 68 bpm (01/23/24 5:00 AM) 65 bpm (01/23/24 4:30 AM) Heart Rate Monitored [60-100 bpm] 66 bpm (01/23/24 5:30 AM) 69 bpm (01/23/24 5:00 AM) 67 bpm (01/23/24 4:30 AM) Respiratory Rate [12-24 br/min] 13 br/min (01/23/24 5:30 AM) 19 br/min (01/23/24 5:00 AM) 13 br/min (01/23/24 4:30 AM) Blood Pressure [90-140/60-90 mmHg] 160/97mmHg *HI* (01/23/24 5:00 AM) 186/106mmHg *HI* (01/23/24 4:00 AM) 194/92mmHg *HI* (01/23/24 1:30 AM) Mean Arterial Pressure, Cuff [65-140 mmHg] 118 mmHg (01/23/24 5:00 AM) 133 mmHg (01/23/24 4:00 AM) 126 mmHg (01/23/24 1:30 AM) Social History Social History Type Response Tobacco Current everyday tob acco user Tobacco Use:. 1/2 pack since 01/2022 prior was 1 PPD per day. 40 year(s). Total pack years: 40. Sex Female Physician Emergency department Note * Chiki Ventura MD: PERFORM Event Display: ED Note Physician Authored Date: [id number] MADISON COBB :1965 Age:58 years Sex:Female Visit Date:01/23/2024 Primary Care Physician: Asya Hand MD HPI 58-year-old female with an extensive medical history notable for CVA, cerebral hemorrhage, CKD stage II, COPD, chronic pain, CAD, depressive disorder, encephalitis, HTN, memory impairment, nicotine dependence can presents complaining of generalized malaise, the patient states that she feels like she is?vibrating?which he interprets as may be the patient also endorses 2 years of nausea andvomiting without any recent change.??The patient reports that she took Suboxone recreationally thismorning and attempt to feel better. ?? M/S/F/SocHx notable for: please see HPI; remainder reviewed with patient and in chart.? ROS: Negative constitutional, eye, cardiovascular, pulmonary, GI, , MSK, skin, neurologic, psychiatric, endocrine unless noted in the HPI. ?? Exam HR 60, BP 190/108, RR 14, T 36.3?C, SaO2 96 % on room air. Gen:??Pleasant, non-toxic appearing, resting comfortably. Slightly slurring speech, fatigued appearing. HEENT: NC, AT, PEERL, EOMI. Pupils approximately 2.5 mm and constricted with respect to ambient light. Resp: Clear to auscultation bilaterally, normal work of breathing, no accessory muscle usage. Card: Regular rate and rhythm with no murmurs, rubs, or gallops, extremities warm and well perfused.?? GI: Non-tender to palpation throughout all quadrants, non-distended, no rebound or guarding. : No suprapubic tenderness to palpation. MSK: No visible deformities, strength and tone without visually appreciable deficit. Skin: Normal color with no visible lesions. Neuro: alert and oriented?3, no facial asymmetry, no gaze preference, no slurring of speech. Pupils equal and reactive, EOMI, no facial asymmetry, no nystagmus, phonation intact, SCM 5/5 bilaterally. Cerebellar: bilateral upper extremities without dysmetria.?? Psych: unusual mood and affect. ?? Labs?? WBC 8.8, Hb 15.5, sodium 131, potassium 3.4, AST 61, ALT 52, ALP 173, total bilirubin 1.0, lactic acid 2.6, troponin 6.8, procalcitonin <0.15, EtOH 39.?? UA - negative nitrate, negative leukocyte esterase. Influenza A, influenza B, RSV, Covid 19 negative.?? Imaging EKG: SR 57 bpm, no DC segment depressions, DC interval 173 ms, QRS 102 ms, no ST segment elevationsor depressions, no hyperacute T waves or discordant T-wave inversions, QTc 505 ms. ?? CT Head:? 1.??No acute intracranial process. Old left parietal CVA.?? 2.??For persistent or progressive symptoms, could further investigate with MRI. ?? CXR:??1.??Chronic interstitial lung disease. 2.??Overlying mild interstitial infiltrates/edema suspected in the lung bases. ?? XR Abd:??Nonspecific abdomen by plain radiography without definite ileus or obstruction identified.If there remains clinical concern for acute abdominal- pelvic pathology, could further investigate with cross-sectional imaging. ?? MDM Previous chart, nursing note, labs, imaging, and vitals reviewed.?? A:??58-year-old female with an extensive medical history notable for CVA, cerebral hemorrhage, CKD stage II, COPD, chronic pain, CAD, depressive disorder, encephalitis, HTN, memory impairment, nicotine dependence can presents complaining of generalized malaise, the patient states that she feels like she is?vibrating?which he interprets as may be the patient also endorses 2 years of nauseaand vomiting without any recent change. ?? Evaluation: patient is without a clearly identifiable, acute, clinically significant pathology. Thepatient???s white blood cell count, lactic acid, procalcitonin, and remainder of her laboratory studies are within acceptable limits. UA is without evidence of infection, the patient???s ECG is nonischemic and given the negative troponin is appropriate for ACS rule out. The patient???s CT head is without evidence of acute pathology and given unremarkable neuro exam, no further evaluation is presently indicated.??Similarly the patient???s chest x-ray and abdominal films were without evidence of acute abnormality. Note was made of the mild interstitial infiltrates versus edema in the lung bases, given the absence of cough, shortness of breath, fever, leukocytosis, or procalcitonin elevation, favor mild edema. Suspect that the patient???s symptoms may be multifactorial in part due to recreational drug use as well as alcohol intoxication??as well as a possible early viral syndrome. While the patient does show signs of opiate usage as well as mild signs of EtOH intoxication, appropriately (albeit with slight slurring of speech), and has a safe discharge home. As such the patient was discharged with PCP follow-up recommended.??Repeat evaluation at approximately 2:40 AM with patient resting comfortably, endorses ongoing mild malaise without any further localizing symptoms. Additionally, the patient is been ambulatory throughout her ER course with a steady, normal, narrow based on antalgic gait. ?? Impression: malaise, Suboxone use, EtOH intoxication. Electronically Signed on 01/23/24 02:47 AM Chiki Ventura MD Emergency department Discharge instructions * Chiki Ventura MD: PERFORM Event Display: ED Discharge Information Authored Date: [id number] MADISON COBB :1965 Age:58 years Sex:Female Visit Date:01/23/2024 Primary Care Physician: Asya Hand MD Discharge Instructions We would like to thank you for allowing us to assist you with your healthcare needs. The following includes patient education materials and information regarding your injury/illness. ?? You were seen at the [facility] Department for evaluation of??feeling unwell. At the time of your evaluation the cause of your symptoms is unclear, however no significant abnormalities were noted. And early, possibly viral illness is suspected to be the cause of your symptoms. Please refrain from drinking alcohol as well as using illegal drugs or drugs that are not prescribed to you.??Please read and follow all of the instructions below. ?? Please follow up with your primary care physician??on Tuesday for repeat evaluation further care as needed. If you develop any new or concerning symptoms, please return to the emergency department. When calling for follow-up care, please make the office aware that this follow-up is from your recent e mergency room visit.? Your care today was limited to identifying and treating emergent medical problems only. Many peoplehave subtle differences in their test results that require follow up with their outpatient physician(s) to correctly determine if this represents a normal variation or concerning abnormality with respect to your specific health.??The care given to you today was limited to identifying and treating emergent medical problems - you need to request a copy of all of your medical records from today's visit and follow up with your outpatient physician(s) to review both today's visit and your overall health. If you have any new symptoms or if you are at all concerned about your health please return immediately to the emergency department. ?? Prescriptions: If you are uninsured or have financial difficulties with filling your prescription(s), you may consider using a free pharmacy discount service such as [employer] ([employer]) or [employer] ([employer]). These services allow you to search for a medication on your phone (or computer) and obtain a coupon that usually has a significant discount from the list peters at a pharmacy. Your physician does not have a financial relationship with either of these services. You may also wish to speak with your physician to determine if lower cost prescriptions are possible. ?? Discharge Vitals Temperature??(Temporal Artery) 97.3 ??F (36.3 ??C) Heart Rate??(Peripheral) 58 Heart Rate??(Monitored) 57 Respiratory Rate?? 12 Blood Pressure?? 194/92?? SpO2?? 93% Allergies ampicillin??(Facial swelling, Skin rash) azithromycin??(Itching) codeine??(Itching) sulfa drugs??(Facial swelling, Skin rash) ALPRAZolam SUMAtriptan amoxicillin??(Unknown) iodinated radiocontrast dyes penicillins You were treated today on an emergency [...] RESP PAP / NIKKI Supplies (Send to [facility]) See instructions Send to [facility] ?? Unchanged FLUoxetine (FLUoxetine 20 mg oral [...] taken at least 24 hours apart ?? Tests Performed Medications and Immunizations Administered Given NS bolus, 1000 mL, Hydration Bolus Toradol, 15 mg, IV Push Lab Test Name Test Result Date/Time WBC 8.8 x10^3/mcL 01/23/2024 00:25 EDT RBC 5.0 x10^6/mcL 01/23/2024 00:25 EDT Hgb 15.5 g/dL 01/23/2024 00:25 EDT Hct 45.1 % 01/23/2024 00:25 EDT MCV 89.3 fL 01/23/2024 00:25 EDT MCH 30.7 pg 01/23/2024 00:25 EDT MCHC 34.4 g/dL 01/23/2024 00:25 EDT RDW-CV 13.1 % 01/23/2024 00:25 EDT Platelets 249 x10^3/mcL 01/23/2024 00:25 EDT Neutro Auto 50.0 % 01/23/2024 00:25 EDT Lymph Auto 37.9 % 01/23/2024 00:25 EDT [place] Auto 9.4 % 01/23/2024 00:25 EDT Eos, Auto 1.6 % 01/23/2024 00:25 EDT Basophil Auto 0.8 % 01/23/2024 00:25 EDT Imm Gran Auto 0.3 % 01/23/2024 00:25 EDT Neutro Absolute 4.4 x10^3/mcL 01/23/2024 00:25 EDT Slide Review Not Indicated 01/23/2024 00:25 EDT Sodium Level 131 mmol/L 01/23/2024 00:25 EDT Potassium Level 3.4 mmol/L 01/23/2024 00:25 EDT Chloride Level 93 mmol/L 01/23/2024 00:25 EDT CO2 24 mmol/L 01/23/2024 00:25 EDT Alk Phos 173 unit/L 01/23/2024 00:25 EDT AST 61 unit/L 01/23/2024 00:25 EDT ALT 52 unit/L 01/23/2024 00:25 EDT BUN 12 mg/dL 01/23/2024 00:25 EDT Glucose Level 92 mg/dL 01/23/2024 00:25 EDT Creatinine Level 0.97 mg/dL 01/23/2024 00:25 EDT eGFR AA 67 01/23/2024 00:25 EDT eGFR Non-AA 67 01/23/2024 00:25 EDT Calcium Level 9.8 mg/dL 01/23/2024 00:25 EDT Protein Total 8.2 g/dL 01/23/2024 00:25 EDT Albumin Level 3.5 g/dL 01/23/2024 00:25 EDT Bilirubin Total 1.0 mg/dL 01/23/2024 00:25 EDT Lactic Acid Lvl 2.6 mmol/L 01/23/2024 00:50 EDT Troponin-I 6.8 pg/mL 01/23/2024 00:25 EDT Procalcitonin <0.15 ng/mL 01/23/2024 00:25 EDT Ethanol Level 39 mg/dL 01/23/2024 00:25 EDT UA Color YELLOW. 01/23/2024 01:30 EDT UA Appear CLEAR. 01/23/2024 01:30 EDT UA Glucose NEGATIVE 01/23/2024 01:30 EDT UA Bili NEGATIVE 01/23/2024 01:30 EDT UA Ketones NEGATIVE 01/23/2024 01:30 EDT UA Spec Grav 1.010 01/23/2024 01:30 EDT UA Blood NEGATIVE 01/23/2024 01:30 EDT UA pH 7.0 01/23/2024 01:30 EDT UA Protein NEGATIVE 01/23/2024 01:30 EDT UA Urobilinogen 0.2 Uro 01/23/2024 01:30 EDT UA Nitrite NEGATIVE 01/23/2024 01:30 EDT UA Leuk Est NEGATIVE 01/23/2024 01:30 EDT SARS-CoV-2(Covid19)PCR(GXpert COVFLURSV) NEGATIVE 01/23/2024 00:54 EDT Flu A (GXpert COVFLURSV) NEGATIVE 01/23/2024 00:54 EDT Flu B (GXpert COVFLURSV) Neg-GeneXPert 01/23/2024 00:54 EDT RSV (GXpert COVFLURSV) Neg-GeneXPert 01/23/2024 00:54 EDT Patient/Market Reporter Signature Patient Name:MADISON COBB I have received this information and my questions have been answered. Patient/Market Reporter Name: Patient/Market Reporter Signature: Relationship to Patient: Witness Name/Signature: Date: Electronically Signed on: 01/23/2024 02:47 EDTSigned by:KIM Patient Care team information Care Team Personnel Name: Asya Hand MD Position: PowerChart View Only Member Role: Informed Provider Address: Address: [address] Care Team Related Persons Name: PHANI LIPSCOMB Name: DENITA RAO
--- OUTSIDE RECORDS SUMMARY | 2024-04-13 11:18 | XMS_ITS | Continuity of Care Document ---
Author Organization [facility] Address [address] [place] [address] Care Team Providers Care Basketball Coach Name Role Phone Asya Hand Primary Care Physician Encounter [facility] Date(s): 12/20/23 - 12/20/23 [facility] [address] [place] [address] Discharge Disposition: Home or Self Care Attending [...] DAY, # 90 tab, 3 Refill(s), Pharmacy: [facility] #58, 170.18, cm, 09/16/22 6:46:00 EST, Height/Length Dosing, 94.3, kg, 09/16/22 6:46:00 EST, Weight Dosing Start Date: 10/12/22 Status: Ordered diphenoxylate-atropine 2.5 mg-0.025 mg oral tablet 30 EA, TAKE ONE TABLET BY MOUTH EVERY 6 HOURS NEEDED, 0 Refill(s) Start Date: 11/09/22 Status: Ordered FLUoxetine 20 mg oral capsule 3 cap, Oral, Daily, # 270 cap, 3 Refill(s), Pharmacy: [facility] #58, 170, cm, 03/06/22 13:18:00 EDT, Height/Length Dosing, 86, kg, 03/06/22 13:18:00 EDT, Weight Dosing Start Date: 07/06/22 Status: Ordered hydrocortisone 2.5% topical cream See Instructions, PRN rash, apply in a thin film to the affected skin and rub in gently and completely, use no more than 3 times daily, # 454 g, 1 Refill(s), Pharmacy: [facility] #58, 170.18, cm, 09/16/22 6:46:00 EST, Height/Length Dosing, 94.3, kg, 09/16/22 6:46:00 EST, Weight Dosing Start Date: 09/24/22 Status: Ordered Incruse Ellipta 62.5 mcg/inh inhalation powder 1 EA, Inhale, every 24 hr, doses should be taken at least 24 hours apart, # 30 EA, 11 Refill(s), Pharmacy: [facility] #58 Start Date: 02/11/22 Stop Date: 02/06/23 Status: Ordered Keppra 250 mg oral tablet 500 mg = 2 tab, Oral, BID, # 120 tab, 5 Refill(s), Pharmacy: [facility] #58, 170.18, cm, 09/16/22 6:46:00 EST, Height/Length Dosing, 94.3, kg, 09/16/22 6:46:00 EST, Weight Dosing Start Date: 09/19/22 Stop Date: 03/18/23 Status: Ordered losartan 50 mg oral tablet 50 mg = 1 tab, Oral, Daily, # 90 tab, 3 Refill(s), Pharmacy: [facility] #58, 170.18, cm, 09/16/22 6:46:00 EST, Height/Length Dosing, 94.3, kg, 09/16/22 6:46:00 EST, Weight Dosing Start Date: 09/19/22 Stop Date: 09/14/23 Status: Ordered Lyrica 300 mg oral capsule 300 mg = 1 cap, Oral, Daily, # 28 cap, 1 Refill(s), Pharmacy: [facility] #58, 170, cm, 03/06/22 13:18:00 EDT, Height/Length Dosing, 86, kg, 03/06/22 13:18:00 EDT, Weight Dosing Start Date: 08/17/22 Stop Date: 10/12/22 Status: Ordered metoprolol succinate 25 mg oral tablet, extended release 25 mg = 1 tab, Oral, Daily, # 90 tab, 3 Refill(s), Pharmacy: [facility] #58, 170.18, cm, 09/16/22 6:46:00 EST, Height/Length [...] Daily, # 14 patches, 1 Refill(s), Pharmacy: [facility] #58, 170.18, cm, 09/16/22 6:46:00 EST, Height/Length Dosing, 94.3, kg, 09/16/22 6:46:00 EST, Weight Dosing Start Date: 09/19/22 Stop Date: 10/17/22 Status: Ordered omeprazole 20 mg oral delayed release capsule 1 cap, Oral, Daily, # 90 cap, 3 Refill(s), Pharmacy: [facility] #58, 170, cm, 03/06/22 13:18:00 EDT, Height/Length [...] Daily, # 90 tab, 3 Refill(s), Pharmacy: [facility] #58, 170, cm, 03/06/22 13:18:00 EDT, Height/Length Dosing, 86, kg, 03/06/22 13:18:00 EDT, Weight Dosing Start Date: 07/22/22 Status: Ordered [facility] [place] [facility] [place], [place], Supply, See instructions, # 1 EA, 0 Refill(s) Start Date: 05/21/22 Status: Ordered Senna 8.6 mg oral tablet See Instructions, TAKE TWO TABLETS BY MOUTH EVERY DAY NEEDED FOR 14 DAYS, # 28 tab, 3 Refill(s),Pharmacy: [facility] #58, 170, cm, 03/06/22 13:18:00 EDT, Height/Length [...] BEDTIME, # 90 tab, 0 Refill(s), Pharmacy: [facility] #58, 170, cm, 03/06/22 13:18:00 EDT, Height/Length [...] Only Member Role: Informed Provider Address: Address: [address] [address]- Care Team Related Persons Name: PHANI LIPSCOMB Name: DENITA RAO
--- OUTSIDE RECORDS SUMMARY | 2024-04-13 11:18 | XMS_ITS | Continuity of Care Document ---
Author Organization [facility] Address [address] [place] [address] Care Team Providers Care Shuttleless Loom Weaver Name Role Phone Asya Hand Primary Care Physician Encounter [facility] Date(s): 07/25/23 - 07/25/23 [facility] [address] [place] [address] Discharge Disposition: Home or Self Care Attending [...] DAY, # 90 tab, 3 Refill(s), Pharmacy: [facility] #58, 170.18, cm, 09/16/22 6:46:00 EST, Height/Length Dosing, 94.3, kg, 09/16/22 6:46:00 EST, Weight Dosing Start Date: 10/12/22 Status: Ordered diphenoxylate-atropine 2.5 mg-0.025 mg oral tablet 30 EA, TAKE ONE TABLET BY MOUTH EVERY 6 HOURS NEEDED, 0 Refill(s) Start Date: 11/09/22 Status: Ordered FLUoxetine 20 mg oral capsule 3 cap, Oral, Daily, # 270 cap, 3 Refill(s), Pharmacy: [facility] #58, 170, cm, 03/06/22 13:18:00 EDT, Height/Length Dosing, 86, kg, 03/06/22 13:18:00 EDT, Weight Dosing Start Date: 07/06/22 Status: Ordered hydrocortisone 2.5% topical cream See Instructions, PRN rash, apply in a thin film to the affected skin and rub in gently and completely, use no more than 3 times daily, # 454 g, 1 Refill(s), Pharmacy: [facility] #58, 170.18, cm, 09/16/22 6:46:00 EST, Height/Length Dosing, 94.3, kg, 09/16/22 6:46:00 EST, Weight Dosing Start Date: 09/24/22 Status: Ordered Incruse Ellipta 62.5 mcg/inh inhalation powder 1 EA, Inhale, every 24 hr, doses should be taken at least 24 hours apart, # 30 EA, 11 Refill(s), Pharmacy: [facility] #58 Start Date: 02/11/22 Stop Date: 02/06/23 Status: Ordered Keppra 250 mg oral tablet 500 mg = 2 tab, Oral, BID, # 120 tab, 5 Refill(s), Pharmacy: [facility] #58, 170.18, cm, 09/16/22 6:46:00 EST, Height/Length Dosing, 94.3, kg, 09/16/22 6:46:00 EST, Weight Dosing Start Date: 09/19/22 Stop Date: 03/18/23 Status: Ordered losartan 50 mg oral tablet 50 mg = 1 tab, Oral, Daily, # 90 tab, 3 Refill(s), Pharmacy: [facility] #58, 170.18, cm, 09/16/22 6:46:00 EST, Height/Length Dosing, 94.3, kg, 09/16/22 6:46:00 EST, Weight Dosing Start Date: 09/19/22 Stop Date: 09/14/23 Status: Ordered Lyrica 300 mg oral capsule 300 mg = 1 cap, Oral, Daily, # 28 cap, 1 Refill(s), Pharmacy: [facility] #58, 170, cm, 03/06/22 13:18:00 EDT, Height/Length Dosing, 86, kg, 03/06/22 13:18:00 EDT, Weight Dosing Start Date: 08/17/22 Stop Date: 10/12/22 Status: Ordered metoprolol succinate 25 mg oral tablet, extended release 25 mg = 1 tab, Oral, Daily, # 90 tab, 3 Refill(s), Pharmacy: [facility] #58, 170.18, cm, 09/16/22 6:46:00 EST, Height/Length [...] Daily, # 14 patches, 1 Refill(s), Pharmacy: [facility] #58, 170.18, cm, 09/16/22 6:46:00 EST, Height/Length Dosing, 94.3, kg, 09/16/22 6:46:00 EST, Weight Dosing Start Date: 09/19/22 Stop Date: 10/17/22 Status: Ordered omeprazole 20 mg oral delayed release capsule 1 cap, Oral, Daily, # 90 cap, 3 Refill(s), Pharmacy: [facility] #58, 170, cm, 03/06/22 13:18:00 EDT, Height/Length [...] Daily, # 90 tab, 3 Refill(s), Pharmacy: [facility] #58, 170, cm, 03/06/22 13:18:00 EDT, Height/Length Dosing, 86, kg, 03/06/22 13:18:00 EDT, Weight Dosing Start Date: 07/22/22 Status: Ordered Send to [place] Send to [place], Send to [place], Supply, See instructions, # 1 EA, 0 Refill(s) Start Date: 05/21/22 Status: Ordered Senna 8.6 mg oral tablet See Instructions, TAKE TWO TABLETS BY MOUTH EVERY DAY NEEDED FOR 14 DAYS, # 28 tab, 3 Refill(s),Pharmacy: [facility] #58, 170, cm, 03/06/22 13:18:00 EDT, Height/Length [...] BEDTIME, # 90 tab, 0 Refill(s), Pharmacy: [facility] #58, 170, cm, 03/06/22 13:18:00 EDT, Height/Length [...] Source Comment: Overview: 02/05/2016 Coronary angiogram at [facility] [place]: LAD mid 50%, OM1 long 40%, RCA [...] Only Member Role: Informed Provider Address: Address: [address] [address]- Care Team Related Persons Name: PHANI LIPSCOMB Name: DENITA RAO
--- OUTSIDE RECORDS SUMMARY | 2024-04-13 11:18 | XMS_ITS | Continuity of Care Document ---
Author Organization [facility] Address [address] [place] [address] Care Team Providers Care Telephone Lineman Name Role Phone Asya Hand Primary Care Physician Encounter [facility] Date(s): 01/31/24 - 01/31/24 [facility] [address] [place] [address] Discharge Disposition: Home or Self Care Attending Physician: Asya Hand MD Admitting Physician: Asya Hand MD Referring Physician: Asya Hand MD Allergies, Adverse Reactions, Alerts Substance Reaction Severity Status codeine Itching Moderate Active amoxicillin 1 Unknown Unknown Active iodinated radiocontrast dyes 2 Unknown Active SUMAtriptan 3 Unknown Active ampicillin 4 Facial swelling Skin rash Moderate Active penicillins 5 Unknown Active sulfa drugs Facial swelling Skin rash Moderate Active ALPRAZolam 6 Unknown Active azithromycin 7 Itching Moderate Active 1Outside Source Comment: Unknown pt unsure 2had side effect to IV contrast used for heard testing 5 years ago ( [facility]),, pt tells they dont use that contrast any more and had other CT po and IV contrast since with no reaction 3Pt. instructed by MD not to take due to ICH 4Pt states as a child 5as a child 6Pt states she's not allergic to this medication 12/11/18 7patient states on 03/04/2022 that she is [...] DAY, # 90 tab, 3 Refill(s), Pharmacy: [facility] #58, 170.18, cm, 09/16/22 6:46:00 EST, Height/Length Dosing, 94.3, kg, 09/16/22 6:46:00 EST, Weight Dosing Start Date: 10/12/22 Status: Ordered diphenoxylate-atropine 2.5 mg-0.025 mg oral tablet 30 EA, TAKE ONE TABLET BY MOUTH EVERY 6 HOURS NEEDED, 0 Refill(s) Start Date: 11/09/22 Status: Ordered FLUoxetine 20 mg oral capsule 3 cap, Oral, Daily, # 270 cap, 3 Refill(s), Pharmacy: [facility] #58, 170, cm, 03/06/22 13:18:00 EDT, Height/Length Dosing, 86, kg, 03/06/22 13:18:00 EDT, Weight Dosing Start Date: 07/06/22 Status: Ordered hydrocortisone 2.5% topical cream See Instructions, PRN rash, apply in a thin film to the affected skin and rub in gently and completely, use no more than 3 times daily, # 454 g, 1 Refill(s), Pharmacy: [facility] #58, 170.18, cm, 09/16/22 6:46:00 EST, Height/Length Dosing, 94.3, kg, 09/16/22 6:46:00 EST, Weight Dosing Start Date: 09/24/22 Status: Ordered Incruse Ellipta 62.5 mcg/inh inhalation powder 1 EA, Inhale, every 24 hr, doses should be taken at least 24 hours apart, # 30 EA, 11 Refill(s), Pharmacy: [facility] #58 Start Date: 02/11/22 Stop Date: 02/06/23 Status: Ordered Keppra 250 mg oral tablet 500 mg = 2 tab, Oral, BID, # 120 tab, 5 Refill(s), Pharmacy: [facility] #58, 170.18, cm, 09/16/22 6:46:00 EST, Height/Length Dosing, 94.3, kg, 09/16/22 6:46:00 EST, Weight Dosing Start Date: 09/19/22 Stop Date: 03/18/23 Status: Ordered losartan 50 mg oral tablet 50 mg = 1 tab, Oral, Daily, # 90 tab, 3 Refill(s), Pharmacy: [facility] #58, 170.18, cm, 09/16/22 6:46:00 EST, Height/Length Dosing, 94.3, kg, 09/16/22 6:46:00 EST, Weight Dosing Start Date: 09/19/22 Stop Date: 09/14/23 Status: Ordered Lyrica 300 mg oral capsule 300 mg = 1 cap, Oral, Daily, # 28 cap, 1 Refill(s), Pharmacy: [facility] #58, 170, cm, 03/06/22 13:18:00 EDT, Height/Length Dosing, 86, kg, 03/06/22 13:18:00 EDT, Weight Dosing Start Date: 08/17/22 Stop Date: 10/12/22 Status: Ordered metoprolol succinate 25 mg oral tablet, extended release 25 mg = 1 tab, Oral, Daily, # 90 tab, 3 Refill(s), Pharmacy: [facility] #58, 170.18, cm, 09/16/22 6:46:00 EST, Height/Length [...] Daily, # 14 patches, 1 Refill(s), Pharmacy: [facility] #58, 170.18, cm, 09/16/22 6:46:00 EST, Height/Length Dosing, 94.3, kg, 09/16/22 6:46:00 EST, Weight Dosing Start Date: 09/19/22 Stop Date: 10/17/22 Status: Ordered omeprazole 20 mg oral delayed release capsule 1 cap, Oral, Daily, # 90 cap, 3 Refill(s), Pharmacy: [facility] #58, 170, cm, 03/06/22 13:18:00 EDT, Height/Length [...] Daily, # 90 tab, 3 Refill(s), Pharmacy: [facility] #58, 170, cm, 03/06/22 13:18:00 EDT, Height/Length Dosing, 86, kg, 03/06/22 13:18:00 EDT, Weight Dosing Start Date: 07/22/22 Status: Ordered Send to [place] Send to [place], Send to [place], Supply, See instructions, # 1 EA, 0 Refill(s) Start Date: 05/21/22 Status: Ordered Senna 8.6 mg oral tablet See Instructions, TAKE TWO TABLETS BY MOUTH EVERY DAY NEEDED FOR 14 DAYS, # 28 tab, 3 Refill(s),Pharmacy: [facility] #58, 170, cm, 03/06/22 13:18:00 EDT, Height/Length [...] BEDTIME, # 90 tab, 0 Refill(s), Pharmacy: [facility] #58, 170, cm, 03/06/22 13:18:00 EDT, Height/Length [...] Source Comment: Overview: 02/05/2016 [place]ary [place] [facility] [place] LAD mid 50%, OM1 long 40%, RCA [...] year(s). Total pack years: 40. Sex Female Cardiology * Manjinder Rodriguez: PERFORM Event Display: Event Monitor Authored Date: [id number] [place] COBB [id number] Patient placed on [employer] Event Monitor 14 dayson 01/31/2024. Electronically Signed on 01/31/24 10:55 AM Manjinder Rodriguez Patient Care team information Care Team Personnel Name: Asya Hand MD Position: PowerChart View Only Member Role: Informed Provider Address: Address: [address] [address]- Care Team Related Persons Name: PHAIN LIPSCOMB Address: Home Name: DENITA RAO Address: Home
--- OUTSIDE RECORDS SUMMARY | 2024-04-13 11:18 | XMS_ITS | Continuity of Care Document ---
Author Organization [facility] Address [address] [place] [address] Care Team Providers Care Dietitian Chief Name Role Phone Asya Hand Primary Care Physician Encounter [facility] Date(s): 02/04/24 - 02/04/24 [facility] [address] [place] [address] Discharge Disposition: Home or Self Care Attending [...] DAY, # 90 tab, 3 Refill(s), Pharmacy: [facility] #58, 170.18, cm, 09/16/22 6:46:00 EST, Height/Length Dosing, 94.3, kg, 09/16/22 6:46:00 EST, Weight Dosing Start Date: 10/12/22 Status: Ordered diphenoxylate-atropine 2.5 mg-0.025 mg oral tablet 30 EA, TAKE ONE TABLET BY MOUTH EVERY 6 HOURS NEEDED, 0 Refill(s) Start Date: 11/09/22 Status: Ordered FLUoxetine 20 mg oral capsule 3 cap, Oral, Daily, # 270 cap, 3 Refill(s), Pharmacy: [facility] #58, 170, cm, 03/06/22 13:18:00 EDT, Height/Length Dosing, 86, kg, 03/06/22 13:18:00 EDT, Weight Dosing Start Date: 07/06/22 Status: Ordered hydrocortisone 2.5% topical cream See Instructions, PRN rash, apply in a thin film to the affected skin and rub in gently and completely, use no more than 3 times daily, # 454 g, 1 Refill(s), Pharmacy: [facility] #58, 170.18, cm, 09/16/22 6:46:00 EST, Height/Length Dosing, 94.3, kg, 09/16/22 6:46:00 EST, Weight Dosing Start Date: 09/24/22 Status: Ordered Incruse Ellipta 62.5 mcg/inh inhalation powder 1 EA, Inhale, every 24 hr, doses should be taken at least 24 hours apart, # 30 EA, 11 Refill(s), Pharmacy: [facility] #58 Start Date: 02/11/22 Stop Date: 02/06/23 Status: Ordered Keppra 250 mg oral tablet 500 mg = 2 tab, Oral, BID, # 120 tab, 5 Refill(s), Pharmacy: [facility] #58, 170.18, cm, 09/16/22 6:46:00 EST, Height/Length Dosing, 94.3, kg, 09/16/22 6:46:00 EST, Weight Dosing Start Date: 09/19/22 Stop Date: 03/18/23 Status: Ordered losartan 50 mg oral tablet 50 mg = 1 tab, Oral, Daily, # 90 tab, 3 Refill(s), Pharmacy: [facility] #58, 170.18, cm, 09/16/22 6:46:00 EST, Height/Length Dosing, 94.3, kg, 09/16/22 6:46:00 EST, Weight Dosing Start Date: 09/19/22 Stop Date: 09/14/23 Status: Ordered Lyrica 300 mg oral capsule 300 mg = 1 cap, Oral, Daily, # 28 cap, 1 Refill(s), Pharmacy: [facility] #58, 170, cm, 03/06/22 13:18:00 EDT, Height/Length Dosing, 86, kg, 03/06/22 13:18:00 EDT, Weight Dosing Start Date: 08/17/22 Stop Date: 10/12/22 Status: Ordered metoprolol succinate 25 mg oral tablet, extended release 25 mg = 1 tab, Oral, Daily, # 90 tab, 3 Refill(s), Pharmacy: [facility] #58, 170.18, cm, 09/16/22 6:46:00 EST, Height/Length [...] Daily, # 14 patches, 1 Refill(s), Pharmacy: [facility] #58, 170.18, cm, 09/16/22 6:46:00 EST, Height/Length Dosing, 94.3, kg, 09/16/22 6:46:00 EST, Weight Dosing Start Date: 09/19/22 Stop Date: 10/17/22 Status: Ordered omeprazole 20 mg oral delayed release capsule 1 cap, Oral, Daily, # 90 cap, 3 Refill(s), Pharmacy: [facility] #58, 170, cm, 03/06/22 13:18:00 EDT, Height/Length [...] Daily, # 90 tab, 3 Refill(s), Pharmacy: [facility] #58, 170, cm, 03/06/22 13:18:00 EDT, Height/Length Dosing, 86, kg, 03/06/22 13:18:00 EDT, Weight Dosing Start Date: 07/22/22 Status: Ordered Send to [facility] [facility] to [facility] [place], [facility] to [facility] [place], Supply, See instructions, # 1 EA, 0 Refill(s) Start Date: 05/21/22 Status: Ordered Senna 8.6 mg oral tablet See Instructions, TAKE TWO TABLETS BY MOUTH EVERY DAY NEEDED FOR 14 DAYS, # 28 tab, 3 Refill(s),Pharmacy: [facility] #58, 170, cm, 03/06/22 13:18:00 EDT, Height/Length [...] BEDTIME, # 90 tab, 0 Refill(s), Pharmacy: [facility] #58, 170, cm, 03/06/22 13:18:00 EDT, Height/Length [...] Source Comment: Overview: 02/05/2016 Coronary angiogram at [facility] [place]: LAD mid 50%, OM1 long 40%, RCA [...] Only Member Role: Informed Provider Address: Address: [address] [address]- Care Team Related Persons Name: PHANI LIPSCOMB Name: DENITA RAO
--- OUTSIDE RECORDS SUMMARY | 2024-04-13 11:18 | XMS_ITS | Continuity of Care Document ---
Author Organization [facility] Address [address] [place] [address] Care Team Providers Care Safety Officer Name Role Phone Asya Hand Primary Care Physician Encounter [facility] Date(s): 04/06/24 - 04/06/24 [facility] [address] [place] [address] Discharge Disposition: Home or Self Care Attending [...] Plan Future Appointments Diagnostic Tests Pending * AFP Tumor Marker [facility] 04/06/24 * HCV RNA Detect Quant [facility] 04/06/24 Immunizations Given and Recorded Vaccine Date Status [...] DAY, # 90 tab, 3 Refill(s), Pharmacy: [facility] #58, 170.18, cm, 09/16/22 6:46:00 EST, Height/Length Dosing, 94.3, kg, 09/16/22 6:46:00 EST, Weight Dosing Start Date: 10/12/22 Status: Ordered citalopram 0 Refill(s) Start Date: 04/05/24 Status: Ordered FLUoxetine 20 mg oral capsule 3 cap, Oral, Daily, # 270 cap, 3 Refill(s), Pharmacy: [facility] #58, 170, cm, 03/06/22 13:18:00 EDT, Height/Length Dosing, 86, kg, 03/06/22 13:18:00 EDT, Weight Dosing Start Date: 07/06/22 Status: Ordered hydrocortisone 2.5% topical cream See Instructions, PRN rash, apply in a thin film to the affected skin and rub in gently and completely, use no more than 3 times daily, # 454 g, 1 Refill(s), Pharmacy: [facility] #58, 170.18, cm, 09/16/22 6:46:00 EST, Height/Length Dosing, 94.3, kg, 09/16/22 6:46:00 EST, Weight Dosing Start Date: 09/24/22 Status: Ordered Incruse Ellipta 62.5 mcg/inh inhalation powder 1 EA, Inhale, every 24 hr, doses should be taken at least 24 hours apart, # 30 EA, 11 Refill(s), Pharmacy: [facility] #58 Start Date: 02/11/22 Stop Date: 02/06/23 Status: Ordered Keppra 250 mg oral tablet 500 mg = 2 tab, Oral, BID, # 120 tab, 5 Refill(s), Pharmacy: [facility] #58, 170.18, cm, 09/16/22 6:46:00 EST, Height/Length Dosing, 94.3, kg, 09/16/22 6:46:00 EST, Weight Dosing Start Date: 09/19/22 Stop Date: 03/18/23 Status: Ordered losartan 50 mg oral tablet 50 mg = 1 tab, Oral, Daily, # 90 tab, 3 Refill(s), Pharmacy: [facility] #58, 170.18, cm, 09/16/22 6:46:00 EST, Height/Length Dosing, 94.3, kg, 09/16/22 6:46:00 EST, Weight Dosing Start Date: 09/19/22 Stop Date: 09/14/23 Status: Ordered Lyrica 300 mg oral capsule 300 mg = 1 cap, Oral, Daily, # 28 cap, 1 Refill(s), Pharmacy: [facility] #58, 170, cm, 03/06/22 13:18:00 EDT, Height/Length Dosing, 86, kg, 03/06/22 13:18:00 EDT, Weight Dosing Start Date: 08/17/22 Stop Date: 10/12/22 Status: Ordered metoprolol succinate 25 mg oral tablet, extended release 25 mg = 1 tab, Oral, Daily, # 90 tab, 3 Refill(s), Pharmacy: [facility] #58, 170.18, cm, 09/16/22 6:46:00 EST, Height/Length [...] Daily, # 14 patches, 1 Refill(s), Pharmacy: [facility] #58, 170.18, cm, 09/16/22 6:46:00 EST, Height/Length Dosing, 94.3, kg, 09/16/22 6:46:00 EST, Weight Dosing Start Date: 09/19/22 Stop Date: 10/17/22 Status: Ordered omeprazole 20 mg oral delayed release capsule 1 cap, Oral, Daily, # 90 cap, 3 Refill(s), Pharmacy: [facility] #58, 170, cm, 03/06/22 13:18:00 EDT, Height/Length [...] Daily, # 90 tab, 3 Refill(s), Pharmacy: [facility] #58, 170, cm, 03/06/22 13:18:00 EDT, Height/Length Dosing, 86, kg, 03/06/22 13:18:00 EDT, Weight Dosing Start Date: 07/22/22 Status: Ordered Send to [facility] Send to [facility] [place], Send to [facility] [place], Supply, See instructions, # 1 EA, 0 Refill(s) Start Date: 05/21/22 Status: Ordered Senna 8.6 mg oral tablet See Instructions, TAKE TWO TABLETS BY MOUTH EVERY DAY NEEDED FOR 14 DAYS, # 28 tab, 3 Refill(s),Pharmacy: [facility] #58, 170, cm, 03/06/22 13:18:00 EDT, Height/Length Dosing, 86, kg, 03/06/22 13:18:00 EDT, Weight Dosing Start Date: 06/15/22 Status: Ordered Symbicort 80 mcg-4.5 mcg/inh inhalation aerosol 2 puffs, Inhale, BID Start Date: 03/26/22 Status: Ordered traZODone 300 mg oral tablet See Instructions, TAKE ONE TABLET BY MOUTH AT BEDTIME, # 90 tab, 0 Refill(s), Pharmacy: [facility] #58, 170, cm, 03/06/22 13:18:00 EDT, Height/Length [...] Comment: Overview: 02/05/[place] [facility] [place] LAD mid 50%, OM1 long 40%, RCA [...] Laboratory List Name Date Comprehensive Metabolic Panel 04/06/24 Lipid Panel 04/06/24 Most recent to oldest [Reference Range]: 1 BUN [7-18 mg/dL] 10 mg/dL (04/06/24 7:32 AM) Cholesterol Total [50-200 mg/dL] 159 mg/ dL (04/06/24 7:32 AM) LDL [0-130 mg/dL] 90 mg/dL (04/06/24 7:32 AM) Glucose Level [74-106 mg/dL] 115 mg/dL *HI* (04/06/24 7:32 AM) Potassium Level [3.5-5.1 mmol/L] 4.5 mmo l/L (04/06/24 7:32 AM) HDL [40-60 mg/dL] 55 mg/dL (04/06/24 7:32 AM) AST [15-37 unit/L] 20 unit/L (04/06/24 7:32 AM) ALT [14-59 unit/L] 16 unit/L (04/06/24 7:32 AM) Sodium Level [136-145 mmol/L] 134 mmol/L *LOW* (04/06/24 7:32 AM) Triglycerides [0-150 mg/dL] 71 mg/dL (04/06/24 7:32 AM) Calcium Level [8.5-10.1 mg/dL] 8.9 mg/dL (04/06/24 7:32 AM) Albumin Level [3.4-5.0 g/dL] 3.3 g/dL *LOW* (04/06/24 7:32 AM) Protein Total [6.4-8.2 g/dL] 7.5 g/dL (04/06/24 7:32 AM) Bilirubin Total [0.2-1.0 mg/dL] 0.7 mg/d L (04/06/24 7:32 AM) Alk Phos [46-146 unit/L] 95 unit/L (04/06/24 7:32 AM) CO2 [21-32 mmol/L] 29 mmol/L (04/06/24 7:32 AM) eGFR Non-AA [>=60] 58 *LOW* (04/06/24 7:32 AM) eGFR AA [>=60] 58 *LOW* (04/06/24 7:32 AM) Chloride Level [98-107 mmol/L] 97 mmol/L *LOW* (04/06/24 7:32 AM) Creatinine Level [0.55-1.02 mg/dL] 1.09 mg/dL *HI* (04/06/24 7:32 AM) Social History Social History Type Response Tobacco Current everyday tob acco user Tobacco Use:. 1/2 pack since 01/2022 prior was 1 PPD per day. 40 year(s). Total pack years: 40. Sex Female Patient Care team information Care Team Personnel Name: Asya Hand MD Position: PowerChart View Only Member Role: Informed Provider Address: Address: [address] [address]- Care Team Related Persons Name: PHANI LIPSCOMB Name: DENITA RAO
--- OUTSIDE RECORDS SUMMARY | 2024-04-13 11:19 | XMS_ITS | Encounter Summary ---
Author Organization [facility] Address [facility] [place] [address] Care Team Providers Care Lithographic Proofer Name Role Phone Homer Merida MD Primary Care Provider [phone] Encounter Details Date Type Department Care Team (Late st Contact Info) Description 08/21/2019 [place] [phone] Debra Olivia Social History Tobacco Use Types Packs/Day Years Used Date Smoking Tobacco: Every Day Cigarettes 0.5 25 Smokeless Tobacco: Never Comments:avs information Alcohol Use Standard Drinks/Week Comments No 0 (1 standard drink = 0.6 oz pure alcohol) Was an alcoholic until a year ago and prior to that for over 17 years was a heavy alcoholic Sex and Gender Information Value Date Recorded Sex Assigned at Not on file Gender Identity Not on file Sexual Orientation Not on file documented as of this encounter Miscellaneous Notes * Telephone Encounter - Mary Cooper - 08/27/2019 1:53 PM EST Pt called to inquire about Pain Management referral = PT called and she does not want PT Called [facility] and informed there is no longer a PM program at [facility] Called pt to inform and she will call back w alternative * Telephone Encounter - Debra Olivia - 08/21/2019 7:41 AM EST Referral, notes, and demo faxed to [facility] [phone] * Telephone Encounter - Debra Olivia - 08/21/2019 7:41 AM EST ----- Message from Quinn Huynh MD sent at 08/20/2019 6:40 PM EST ----- Patient will need referral to pain clinic at [facility] for consideration of GAYATRI. Ordered. Thank you documented in this encounter Plan of Treatment Not on file documented as of this encounter Visit Diagnoses Not on filedocumented in this encounter Care Teams Lithographic Proofer Relationship Specialty Start Date End Date Homer Merida MD [address] [place] [phone] PCP - General Family Medicine 08/10/19 05/26/23 documented as of this encounter
--- OUTSIDE RECORDS SUMMARY | 2024-04-13 11:19 | XMS_ITS | Encounter Summary ---
Author Organization [facility] Address [facility] [place] [address] Care Team Providers Care Director Semiconductor Name Role Phone Homer Merida MD Primary Care Provider [phone] Encounter Details Date Type Department Care Team (Late st Contact Info) Description 12/29/2021 Telephone [facility] [place] [phone] Daphne Burton, RN Social History Tobacco Use Types Packs/Day Years [...] encounter Miscellaneous Notes * Telephone Encounter - Daphne Burton RN - 12/29/2021 12:15 PM EDT Outgoing call to Sahra as she had left a [facility] on the nurse triage phone Tuesday12/28/21 about rescheduling her procedure originally scheduled for 12/30/21. Per Dr. Alamo patient needs to be off the oral prednisone for 7 days. She was also placed on antibiotics, and per clinic guidelines she needs to be offantibiotics for 10 days prior to a procedure. I reached out to Sahra and discussed her situation. She ended both the steroids and the antibioticson Tuesday12/26/21. I let her know she can reschedule the procedure for anytime after 01/05/22. I also advised her that if she was still symptomatic, cough, difficulty breathing, wheezing, she was to call us and let us know as we would not be able to do the procedure if she still had symptoms. I explained to her that the steroids could lower her threshold for infection so we wouldn't want togive them to someone already showing signs of illness. Sahra verbalized understanding and agreed that if she were still symptomatic she would reschedule again. She stated she had the number to scheduling and would call them when she had a chance to reschedulethe procedure. KOREY Monae documented in this encounter Plan of Treatment Not on file documented as of this encounter Visit Diagnoses Not on filedocumented in this encounter Care Teams Director Semiconductor Relationship Specialty Start Date End Date Homer Merida MD [address] [place] [phone] PCP - General Family Medicine 08/10/19 05/26/23 documented as of this encounter
--- OUTSIDE RECORDS SUMMARY | 2024-04-13 11:19 | XMS_ITS | Encounter Summary ---
Author Organization [facility] Address [facility] [place] [address] Care Team Providers Care Cemetery Workers Supervisor Name Role Phone Asya Hand MD Primary Care Provider [phone] Encounter Details Date Type Department Care Team (Late st Contact Info) Description 03/06/2019 Ancillary Procedure [place] [phone] Asya Hand MD [address] [place], [place] [id number] Social History Tobacco Use Types Packs/Day Years [...] on file documented as of this encounter Plan of Treatment Not on file documented as of this encounter Procedures Procedure Name Priority Date/Time Associated Diagnosis Comments FILM LIBRARY STORAGE ONLY MR SPINE Routine 03/06/2019 12:00 AM EDT documented in this encounter Results * Film Library- Storage Only MR Spine (03/06/2019 12:00 AM EDT) Narrative [facility] - 08/10/2019 3:26 PM EST This exam is auto-finalizing. It's purpose is for storage only. Asya Hand MD [facility] FILM LIBRARY ORD ERABLES [facility] [place], [place] documented in this encounter Visit Diagnoses Not on filedocumented in this encounter Care Teams Cemetery Workers Supervisor Relationship Specialty Start Date End Date Asya Hand MD [address] [place] [phone] PCP - General Oncology 06/11/16 08/09/19 documented as of this encounter
--- OUTSIDE RECORDS SUMMARY | 2024-04-13 11:19 | XMS_ITS | Encounter Summary ---
Author Organization [facility] Address [facility] [place] [address] Care Team Providers Care Steward/Stewardess Room Name Role Phone Homer Merida MD Primary Care Provider [phone] Encounter Details Date Type Department Care Team (Late st Contact Info) Description 12/24/2021 Telephone [facility] [place] [phone] Anneliese Zambrano RN Social History Tobacco Use Types Packs/Day [...] encounter Miscellaneous Notes * Telephone Encounter - Anneliese Zambrano RN - 12/24/2021 3:07 PM EDT Contact made with patient or promotional representative as identified in contacts 1. Patient instructed to arrive at 0730 on 12/30/21 with their automation driver for their caudal GAYATRI procedure.Please plan to spend about 2 hours at the center. (3 hours for RFA) 2. Has pt started any new medications or supplements in the past two weeks? Yes Patient has had cough and sinus symptoms - has started oral steroids and a z-pac. 3. Have any of the following occurred within the two weeks before the procedure date? a. Patient is having a Covid vaccine or other vaccine No b. Patient has been exposed to anybody with a contagious illness such as Covid, flu, No c. Patient is taking antibiotics to treat an infection Yes Patient has had cough and sinus symptoms- has started oral steroids and a z-pac. d. Patient has any skin rashes, breakdown, blisters or open wounds No e. Patient has had any hospitalizations, ED visits, surgery, other procedure, dental procedure No f. Patient has taken oral steroids or had a steroid injection Yes Patient has had cough and sinus symptoms - has started oral steroids and a z-pac. g. Does patient have any of the following symptoms that are NEW and NOT explained by another healthcondition: fever or chills, cough, shortness of breath or difficulty breathing, fatigue, muscle or body aches, headache, new loss of taste or smell, sore throat, congestion or runny nose, nausea or vo miting, diarrhea. No If yes, the patient has been directed to the covid hotline for testing prior to their procedure. (route telephone note to: [facility] Public Health covid 19 nurse triage with routing comment stating pt needs covid test prior to procedure and give date of procedure, add name and MRN to tracking tool). h. Has the patient's pain resolved or significantly improved such as a rating of 3/10 or less? No 4. Was patient instructed to stop any medications? No if yes: a. Name of medication(s): b. Confirm date of last dose: 5. Is patient having a nerve block: No a. If yes instructed to not take any pain medication for 12 hours before your procedure. 6. Patient instructed to take any prescribed medications that they were not told to stop, especially blood pressure medication, because their procedure may be cancelled if their blood pressure is toohigh. 7. Was patient instructed to follow NPO guidelines: Yes if yes, the following instructions were reviewed: a. You may eat up to 6 hours before your procedure b. You may have clear liquids only up to 2 hours before your procedure: water, apple juice, kathie candida, sprite, popsicles, broth, tea or coffee plain or with sweetener, absolutely no dairy products, no milk including soy, oat, almond. 8. IF RFA: Does patient have a pacemaker? No a. If yes, document that cardiology was called and notified. 9. Additional notes if applicable: Patient expressed understanding and agreement with instructions Yes Patient denies further questions Yes documented in this encounter Plan of Treatment Not on file documented as of this encounter Visit Diagnoses Not on filedocumented in this encounter Care Teams Steward/Stewardess Room Relationship Specialty Start Date End Date Homer Merida MD [address] [place] [phone] PCP - General Family Medicine 08/10/19 05/26/23 documented as of this encounter
--- OUTSIDE RECORDS SUMMARY | 2024-04-13 11:19 | XMS_ITS | Encounter Summary ---
Author Organization [facility] [place] [address] Care Team Providers Care Digital Analytics Manager Name Role Phone Homer Merida MD Primary Care Provider [phone] Encounter Details Date Type Department Care Team (Latest Contact Info) Description 12/15/2021 Travel Social History Tobacco Use Types Packs/Day Years [...] on filedocumented in this encounter Care Teams Digital Analytics Manager Relationship Specialty Start Date End Date Homer Merida MD [address] [place] [phone] PCP - General Family Medicine 08/10/19 05/26/23 documented as of this encounter
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
--- OUTSIDE RECORDS SUMMARY | 2024-04-13 11:19 | XMS_ITS | Encounter Summary ---
Author Organization [facility] Address [facility] [place] [address] Care Team Providers Care Buffet Waiter/Waitress Name Role Phone Asya Hand MD Primary Care Provider [phone] Encounter Details Date Type Department Care Team (Late st Contact Info) Description 12/26/2017 Ancillary Procedure Radiology Library at [facility] [place] [address] Mayur Monroy III, MD [facility] [address] Social History Tobacco Use Types Packs/Day Years [...] Associated Diagnosis Comments FILM LIBRARY STORAGE ONLY CT HEAD Routine 12/26/2017 12:00 AM EDT documented in this encounter Results * Film Library- Storage Only CT Head (12/26/2017 12:00 AM EDT) Narrative [facility] - 05/09/2020 11:28 AM EDT This exam is auto-finalizing. It's purpose is for storage only. Mayur Monroy III, MD IMG FILM LIBRARY ORDERABLES Performing Organization Address City/State/[facility] Co de Phone Number [place], [place] documented in this encounter Visit Diagnoses Not on filedocumented in this encounter Care Teams Buffet Waiter/Waitress Relationship Specialty Start Date End Date Asya Hand MD [address] [place] [address] PCP - General Oncology 06/11/16 08/09/19 documented as of this encounter
--- OUTSIDE RECORDS SUMMARY | 2024-04-13 11:19 | XMS_ITS | Encounter Summary ---
Author Organization [facility] [place] [address] Care Team Providers Care Nut Process Helper Name Role Phone Homer Merida MD Primary Care Provider [phone] Encounter Details Date Type Department Care Team (Late st Contact Info) Description 09/17/2022 1:35 PM EST Telehealth [place] [address] Telehealth, Neurology None Social History Tobacco Use Types Packs/Day Years [...] as of this encounter Miscellaneous Notes * Consult Note - Mehrdad Plunkett MD - 09/17/2022 1:35 PM EST [facility] TELENEUROLOGY This is a phone follow-up on [facility] TELENEUROLOGY CONSULT NOTE 09/16/2022 Date 09/17/22 Patient: Sahra Williamson : 1965 Gender: female VISIT Requesting Location: [facility] Requesting Physician: Homer Raines MD Diagnosis/Reason for Consult: Seizure Initial evaluation clinical impression and diagnosis: Patient's presentation is most likely consistent with generalized tonic-clonic seizure with potentially focal onset with secondary generalizationspecially with her experiencing right leg shaking at the beginning without losing consciousness. Interictal urine incontinence and postictal confusion supports seizure etiology. The weakness of the right upper and lower limb might be due to Sukhdev's paralysis or new onset left hemispheric stroke which might be the symptomatic cause of seizures in case existed. The triggers could be either current COVID-19 infection or newly introduced Paxlovid??although it does not carry seizures as part of its side effect profile. The patient takes oxycodone 4 times daily and last dose was before bedtime. No other medication introduction or withdrawal has been identified as a trigger. I recommend obtaining head CT scan initially to rule out acute intracranial abnormality and follow that with brain MRI withand without contrast (unless brain MRI can be started with if available shortly). We discussed the initiation of AED which seems to be of the right step with her second seizure in childhood history of epilepsy. Keppra would be an appropriate choice by taking 500 mg twice daily. Other precautions should be discussed with the patient. Meanwhile she can be observed until back to baseline with support jaquan management and headache treatment. PT/OT will be needed for disposition planning. Initial recommendation and plan: -Head CT scan followed by brain MRI with and without contrast. -Supportive management for headache with IV fluids and pain management. -Start Keppra 500 g twice daily -Consider discussing alternatives toPaxlovid unless medically needed I discussed today 09/17/2022 with the brain MRI appearance which initially rule out acute ischemic stroke but showed signs of confluent T2 hyperintensity signal in the subcortical white-workman matter junction over the bilateral occipital towards the parietal lobes and mostly extending towards the left frontal lobe. Multiple possibilities raises from the appearance of this MRI including autoimmune inflammatory (possibly COVID induced), malignant or vasogenic etiology (PRES). PLAN discussed: - LP for CSF studies: 1. Cell count and deferential, protein, glucose, gram stain, and culture 2. Oligoclonal bands (requires SPEP), and IgG index 3. HSV, VZV, and EBV serology (IgM/IgG, and PCR) - Continue antiplatelet treatment with Keppra 500 mg twice daily - When appropriate, repeat brain MRI with and without contrast if patient is not allergic Mehrdad Plunkett MD [facility] Tele-Neurology documented in this encounter Plan of Treatment Not on file documented as of this encounter Visit Diagnoses Not on filedocumented in this encounter Care Teams Nut Process Helper Relationship Specialty Start Date End Date Homer Merida MD [address] [place] [phone] PCP - General Family Medicine 08/10/19 05/26/23 documented as of this encounter
--- OUTSIDE RECORDS SUMMARY | 2024-04-13 11:19 | XMS_ITS | Clinical Summary ---
Author Organization [facility] Address [address] [facility] [place] [address] Care Team Providers Care Automatic Hemmer Name Role Phone Unknown Primary Care Provider Unavailabl e Allergies Active Allergy Reactions Criticality Noted Date Comments Alprazolam 06/11/2016 Amoxicillin Unknown pt unsure Ampicillin Itching Azithromycin Itching 11/03/2011 Codeine Phosphate Itching Sumatriptan Succinate Medium 02/25/2012 Iodine And Iodide Containing Products Diarrhea,Nausea And Vomiting High 02/10/2015 Other reaction(s): Flushing some kind of a heart stress test Not sure if dobutamine stress or nuclear stress test Sulfa (Sulfonamide Antibiotics) Itching Edema Medications Medication Sig Dispensed Refills Start Date End Date Status aspirin 81 mg Tablet, Chewable Take 81 mg by mouth daily. 30 tablet 3 07/31/2017 Active meTOPROLOL succinate (TOPROL-XL) 50 mg Tablet Sustained Release 24 hr Take 1 tablet by mouth daily. 30 tablet 12 07/31/2017 Active Additional Information Patient taking differently: 12.5 mgOral DAILY, Reported on 08/20/2019 nitroGLYcerin (NITROSTAT) 0.4 mg Tablet, Sublingual Place 1 tablet under the tongue every 5 minutes as needed for Chest pain. 90 tablet 12 07/30/2017 Active FLUoxetine (PROZAC) 20 mg Capsule Take 3 capsules by mouth daily. 90 capsule 08/17/2017 Active pregabalin (LYRICA) 50 mg Capsule Take 1 capsule by mouth 3 times daily as needed (for anxiety). 60 tablet 08/17/2017 Active Additional Information Patient taking differently: 150 mgOral2 TIMES DAILY, Reported on 08/20/2019 FLOVENT HFA 44 mcg/actuation HFA Aerosol Inhaler USE 2 PUFFS BY MOUTH TWICE DAILY 4 06/25/2018 Active EASIVENT HOLDING CHAMBER Spacer USE DIRECTED 0 07/07/2018 Activ e losartan (COZAAR) 50 mg Tablet 25 mg. 3 05/13/2018 Active NARCAN 4 mg/actuation [place], Non-Aerosol SPRAY 1 SQUIRT NASALLY NEEDED FOR OVERDOSE 0 06/06/2018 Active oxyCODONE (ROXICODONE) 10 mg Tablet 15 mg 4 times daily. 0 07/03/2018 Active traZODone (DESYREL) 50 mg Tablet Take 300 mg by mouth. Active VENTOLIN HFA 90 mcg/actuation HFA Aerosol Inhaler INHALE 2 PUFFS EVERY 3 HOURS NEEDED 3 07/10/2019 Active cefPODOXime (VANTIN) 200 mg Tablet TAKE ONE TABLET BY MOUTH TWICE A DAY 0 08/13/2019 Active hydrOXYzine (ATARAX) 25 mg Tablet as needed. 0 04/14/2019 Active ibuprofen (ADVIL;MOTRIN) 800 mg Tablet TAKE ONE TABLET BY MOUTH THREE TIMES A DAY NEEDED 3 08/11/2019 Active omeprazole (PRILOSEC) 40 mg Capsule, Delayed Release(E.C.) as needed. 3 08/11/2019 Active rosuvastatin (CRESTOR) 10 mg Tablet TAKE ONE TABLET BY MOUTH EVERY DAY 3 07/21/2019 Active SENNA 8.6 mg Tablet as needed. 3 07/16/2019 Active glecaprevir/pibren tasvir (MAVYRET ORAL) Take by mouth daily. Active Active Problems Problem Noted Date Diagnosed Date Scoliosis 07/19/2018 Low back pain, non-specific 07/19/2018 Unstable angina 08/15/2017 NSTEMI (non-ST elevated myocardial infarction) 1 09/28/2016 Positive urine drug screen f or amphetamines, opiates, buprenorphine on admission 07/29/2017 Tobacco use 07/29/2017 Anxiety 06/11/2016 Cerebrovascular accident (CVA) 06/11/2016 Tobacco dependence syndrome 06/11/2016 Headache, chronic daily 06/11/2016 Hypertension 02/05/2016 Hyperlipidemia 02/05/2016 History of seizure 02/05/2016 Current smoker 02/05/2016 Overview (02/05/2016): 35+yrs Depression 02/05/2016 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 Chronic pain 02/10/2015 Migraine 02/25/2012 Cervical spondylosis 04/28/2011 PRES (posterior reversible encephalopathy syndro me) 02/17/2011 Resolved Problems Problem Noted Date Diagnosed Date Resolved Date Abdominal pain 02/15/2011 02/17/2011 Cardiac enzymes elevated 02/15/2011 Seizure 02/14/2011 02/17/2011 Fever 02/14/2011 02/17/2011 Confusion 02/14/2011 02/17/2011 Family History Medical History Relation Comments Coronary Artery Disease Early Onset Father Cerebrovascular Accident Mother Relation Status Comments Father Mother Social History Tobacco Use Types Packs/Day Years Used Date Smoking Tobacco: Every Day Cigarettes 0.5 25 Smokeless Tobacco: Never Tobacco Cessation:Ready to Q uit: No; Counseling Given: Yes Comments:avs information Alcohol Use Standard Drinks/Week Comments No 0 (1 standard drink = 0.6 oz pure alcohol) Was an alcoholic until a year ago and prior to that for over 17 years was a heavy alcoholic Sex and Gender Information Value Date Recorded Sex Assigned at Not on file Gender Identity Not on file Sexual Orientation Not on file Last Filed Vital Signs Vital Sign Reading Time Taken Comments Blood Pressure 130/80 12/15/2021 11:11 AM EDT Pulse 67 12/15/2021 11:11 AM EDT Temperature 36.4 ??C (97.5 ??F) 08/17/2017 11:[address] Respiratory Rate 18 08/17/2017 11:34 AM EST Oxygen Saturation 96% 12/15/2021 11:11 AM EDT Inhaled Oxygen Concentration - - Weight 90.7 kg (200 lb) 12/15/2021 11:11 AM EDT Height 170.2 cm (5' 7) 12/15/2021 11:11 AM EDT Body Mass Index 31.32 12/15/2021 11:11 AM EDT Plan of Treatment Health Maintenance Due Date Last Done Comments CT Colonography 1963 Colonoscopy 1963 Colorectal Cancer Screening 1963 FIT DNA 1963 FIT 1963 Sigmoidoscopy (10 year) with FIT yearly 1963 Sigmoidoscopy 1963 Pneumococcal Vaccine: At-Ris k 5-64yrs (1 of 2 - PCV) 1969 Tdap adult 1982 Tetanus vaccine 1982 HPV test 1993 PAP Smear 1993 Breast Cancer Share Decision Needed 2003 Breast Cancer screening 2003 Zoster vaccine (1 of 2) 2013 Advance Directive 2018 Diabetes Screening (HgbA1C o r Glucose) 08/17/2020 08/17/2017, 08/15/2017, 07/30/2017, Additional history exists Covid-19 Vaccine (1 - 2022-2 4 season) 2023 Influenza (Flu) vaccine (1 o f 1 - Influenza standard series) 05/27/2024 HIV screen Completed 02/14/2011 Hepatitis C Screening Completed 02/14/2011 Procedures Procedure Name Priority Date/Time Associated Diagnosis Comments BASIC METABOLIC PANEL (NON-FASTING) Routine 08/17/2017 8:31 AM EST HIV SCREEN, 4TH GENERATION ([facility] [place]/CGP/APD/[facility]) Routine 02/14/2011 4:45 AM EDT HEPATITIS C ANTIBODY Routine 02/14/2011 4:45 AM EDT from Last 3 Months or Most Recently Relevant to Health Maintenance Results * Basic Metabolic Panel (non-fasting) (08/17/2017 8:31 AM EST) Glucose Lvl 82 65 - 199 mg/dL [facility] Comment:Diabetes: >=200 mg/d L plus symptoms BUN 13 8 - 18 mg/dL [facility] Creatinine 0.87 0.70 - 1.20 mg/dL [facility] Sodium 138 135 - 145 mmol/L [facility] Potassium 3.6 3.5 - 5.0 mmol/L [facility] Comment: Please note: ??Patients with WBC >100,000 may have falsely elevated Potassium levels. ??For accurate Potassium quantification in these patients send serum separator tube (gold top) for subsequent determinations. ??Contact the Clinical Chemistry Laboratory if there are any questions. Chloride 98 98 - 107 mmol/L [facility] CO2 25 22 - 31 mmol/L [facility] Anion Gap 15 5 - 15 mmol/L [facility] Calcium 9.5 8.5 - 10.5 mg/dL [facility] Comment:result rechecked-SV Estimated GFR >60 >=60 [facility] Comment: The reported eGFR should be multiplied by 1.2 for patients. The MDRD is not an appropriate measure of renal function for patients with body mass extremes or in patients with acute kidney failure. http://Playtabase/DHnkdep http://Playtabase/DHMCnkf Blood specimen (specimen) 08/17/2017 8:31 AM EST 08/17/2017 8:45 AM EST Narrative Resulting Agency Comment Spec In Lab Pankaj Valerio MD CHEMISTRY ORDERABLES [facility] [place] [address] * Hepatitis C Antibody (02/14/2011 4:45 AM EDT) Hepatitis C Ab Negative Negative [facility] Blood specimen (specimen) 02/14/2011 4:45 AM EDT 02/14/2011 6:33 AM EDT Alyssa Morales MD IMMUNOLOGY ORDERABLE S [facility] * HIV (02/14/2011 4:45 AM EDT) HIV 1/2 Ab Negative [facility] Blood specimen (specimen) 02/14/2011 4:45 AM EDT 02/14/2011 6:33 AM EDT Alyssa Morales MD IMMUNOLOGY ORDERABLE S [facility] from Last 3 Months or Most Recently Relevant to Health Maintenance Advance Directives * Full Code (Latest Code Status on File) Date Activated Date Inactivated Comments 08/15/2017 10:27 PM 08/17/2017 8:18 PM Question Answer Comments Does patient have capacity to make decision: Yes * Full Code Date Activated Date Inactivated Comments 07/29/2017 3:55 PM 07/30/2017 5:48 PM Question Answer Comments Does patient have capacity to make decision: Yes * Full Code Date Activated Date Inactivated Comments 02/04/2016 9:18 PM 02/05/2016 9:22 PM Question Answer Comments Does patient have capacity to make decision: Yes * Full Code Date Activated Date Inactivated Comments 10/03/2011 12:53 AM 10/05/2011 3:15 PM Question Answer Comments Order Status: Initial Order Does patient have decision m aking capacity? Yes, Order is based on Patients wishes. * Full Code Date Activated Date Inactivated Comments 02/14/2011 4:20 AM 02/17/2011 2:37 PM Question Answer Comments Order Status: Initial Order Does patient have decision m aking capacity? No, see responsible decision maker question Care Teams Automatic Hemmer Relationship Specialty Start Date End Date Unknown None PCP - General 05/27/23
--- OUTSIDE RECORDS SUMMARY | 2024-04-13 11:19 | XMS_ITS | Continuity of Care Document ---
Author Organization [facility] or Sleep Disorders Address [address] [place] [address] Care Team Providers Care Pantograph I Engraver Name Role Phone Neihart Asya Ronnie Primary Care Physician Encounter [facility] [id number] Date(s): 04/05/24 - 04/05/24 [facility] [address] [place] [address] Encounter Diagnosis Obstructive sleep apnea(Discharge Diagnosis) - 04/05/24 Nocturnal hypoxemia(Discharge Diagnosis) - 04/05/24 Encounter for smoking cessation counseling(Discharge Diagnosis) - 04/05/24 Discharge Disposition: Home or Self Care Attending Physician: Daksha Tidwell NP Allergies, Adverse Reactions, Alerts Substance Reaction Severity Status ampicillin 1 Facial swelling Skin rash Moderate Active codeine Itching Moderate Active azithromycin 2 Itching Moderate Active penicillins 3 Unknown Active sulfa drugs Facial swelling Skin rash Moderate Active iodinated radiocontrast dyes 4 Unknown Active ALPRAZolam 5 Unknown Active SUMAtriptan 6 Unknown Active amoxicillin 7 Unknown Unknown Active 1Pt states as a child [...] MD not to take due to ICH 7Outside Source Comment: Unknown pt unsure Assessment and Plan Extracted from: Title:Sleep Clinic - Office Visit Note Author:Daksha Jordan NP Date:04/05/24 1.??Obstructive sleep apnea? ?G47.33 2.??Nocturnal hypoxemia??G47.34 3.??Encounter for smoking cessation counseling??Z71.6 I provided greater than??40??minutes in the care of this patient, more than half the time was spent in [id number] counseling. ? COBB, MADISON Barnes??is a pleasant??58 year old?female??here for sleep follow up. ??with comorbidities of?? COPD, hx IA x 2, CVA, hypertension, GERD, smoker (40+ pkg yr history), DJD,??depression ? Clinical Data Reviewed: Walnut Sleepiness Scale: 06/19 ? Sleep Clinical Timeline:? 09/07/2000. ??PSG diagnostic. 1. ??96 obstructive apneas and 1 central apnea 2.?? RDI 14/hour, non-REM??index??7/hr, REM index 30/h 3. ??Oxygen saturation yanni 92% 4. ??Sleep efficiency 91% patient opted out of treatment at that time ?? 04/29/2022. ??PSG diagnostic 1. ??Mild obstructive sleep apnea,??overlap with very significant baseline nocturnal hypoxemia 2. ??Overall AHI 5.8/h, RDI 11.0/h,??REM AHI 15.2/h, supine AHI 14/h,??right lateral AHI 3/h, left lateral AHI??N/AA,??prone AHI N/AA 3.?? Mean SPO2 83% and??yanni??SPO2 76% on room air,??461.6 minutes spent with SPO2??less than or equal to 88% on room air.? 4. ??She was taken off supplemental oxygen during the sleep study for diagnostic purposes,??as hypopneas may be masked by supplemental oxygen.?? As she was able to maintain SPO2 greater than 80%, per sleep study protocol,??she stayed on room air for the duration of the sleep study. 5. ??Occasional muscle fasciculations observed in leg EMG.?? PLM index 4.6/h. ??PLM arousal index 0.1/h. ? 05/19/2022: Order was placed to start auto CPAP therapy and subsequent titration PSG. ? 02/15/2024: MRI Brain. Chronic left parietal lobe infarction. No acute findings. ?? 02/23/2024: Zio Patch. Sinus rhythm with rare PACs and rare PVCs over 6 day monitoring period. Sinus rhythm. There was trivial, asymptomatic SVT with the longest episode lasting 14 beats. No significant arrhythmias. ?? 04/05/2024: Patient lost to follow up after ordering CPAP, states she struggled with the mask fit and felt too sick to continue trying to use it. She continues to c/o fatigue, poor sleep, waking up gasping for air and is using supplemental O2 at night which sometimes falls off at night. Reports that she has had what she calls seizures??and is going to see Dr. Huber in April. Will order repeat diagnostic PSG to qualify her for CPAP therapy. On citalopram, fluoxetine, and pregabalin 600mg. ? Today's Assessment and Plan: ? Extensive??discussion??about??the results of??her past PSG??in 2021.??We went over the risks of untreated severe nocturnal hypoxemia and how to relates to her comorbidities especially with her hx of stroke, IA, and COPD. Patient will need to have a repeat diagnostic PSG to qualify her for CPAP therapy, as she only briefly tried it and returned the machine in 2021.??She has lost a significant amount of weight, she reports due to illness, since 2021. Discussed what to expect on the night of her PSG and that she will most likely need to come back for a titration PSG to ensure adequate oxygenation. ?? Pt??reports??she??has had 3??nocturnal seizures describes as??sweating profusely,??drooling,??couldn't speak??well,??couldn't??move, was half??awake??and??had to??call her son for??help.??States the??last episode??was 1 month ago.??She does not have??an??official diagnosis of??seizure disorder and is not on??any antiepileptic??medication.??Chart??reviewed, recent MRI??Brain from??02/15/24??showed??no acute??changes,??chronic??parietal??infarction. 6 day??Zio??patch from??02/23/24??was NSR??with??runs of asymptomatic SVT. She does??not follow with a??purchasing associate. ?? Pt has thought about quitting smoking??but is not ready to do??so yet due to life stressors.??More than 5 minutes spent discussing smoking cessation counselling. ?? PSG Instructions: Obtain supine and lateral position sleep for comparison. Document medications taken on night of PSG. ? Follow up: ?? 3 months or??sooner if needed. ? Remote Scribed by Mirela Lama ? Future Appointments Immunizations Given and Recorded Vaccine [...] DAY, # 90 tab, 3 Refill(s), Pharmacy: [facility] #[id number], 170.18, cm, 09/16/22 6:46:00 EST, Height/Length Dosing, 94.3, kg, 09/16/22 6:46:00 EST, Weight Dosing Start Date: 10/12/22 Status: Ordered citalopram 0 Refill(s) Start Date: 04/05/24 Status: Ordered FLUoxetine 20 mg oral capsule 3 cap, Oral, Daily, # 270 cap, 3 Refill(s), Pharmacy: [facility], 170, cm, 03/06/22 13:18:00 EDT, Height/Length Dosing, 86, kg, 03/06/22 13:18:00 EDT, Weight Dosing Start Date: 07/06/22 Status: Ordered hydrocortisone 2.5% topical cream See Instructions, PRN rash, apply in a thin film to the affected skin and rub in gently and completely, use no more than 3 times daily, # 454 g, 1 Refill(s), Pharmacy: [facility] #58, 170.18, cm, 09/16/22 6:46:00 EST, Height/Length Dosing, 94.3, kg, 09/16/22 6:46:00 EST, Weight Dosing Start Date: 09/24/22 Status: Ordered Incruse Ellipta 62.5 mcg/inh inhalation powder 1 EA, Inhale, every 24 hr, doses should be taken at least 24 hours apart, # 30 EA, 11 Refill(s), Pharmacy: [facility] Start Date: 02/11/22 Stop Date: 02/06/23 Status: Ordered Keppra 250 mg oral tablet 500 mg = 2 tab, Oral, BID, # 120 tab, 5 Refill(s), Pharmacy: [facility] #58, 170.18, cm, 09/16/22 6:46:00 EST, Height/Length Dosing, 94.3, kg, 09/16/22 6:46:00 EST, Weight Dosing Start Date: 09/19/22 Stop Date: 03/18/23 Status: Ordered losartan 50 mg oral tablet 50 mg = 1 tab, Oral, Daily, # 90 tab, 3 Refill(s), Pharmacy: [facility] #58, 170.18, cm, 09/16/22 6:46:00 EST, Height/Length Dosing, 94.3, kg, 09/16/22 6:46:00 EST, Weight Dosing Start Date: 09/19/22 Stop Date: 09/14/23 Status: Ordered Lyrica 300 mg oral capsule 300 mg = 1 cap, Oral, Daily, # 28 cap, 1 Refill(s), Pharmacy: [facility]58, 170, cm, 03/06/22 13:18:00 EDT, Height/Length Dosing, 86, kg, 03/06/22 13:18:00 EDT, Weight Dosing Start Date: 08/17/22 Stop Date: 10/12/22 Status: Ordered metoprolol succinate 25 mg oral tablet, extended release 25 mg = 1 tab, Oral, Daily, # 90 tab, 3 Refill(s), Pharmacy: [facility] #58, 170.18, cm, 09/16/22 6:46:00 EST, Height/Length [...] Daily, # 14 patches, 1 Refill(s), Pharmacy: [facility] #58, 170.18, cm, 09/16/22 6:46:00 EST, Height/Length Dosing, 94.3, kg, 09/16/22 6:46:00 EST, Weight Dosing Start Date: 09/19/22 Stop Date: 10/17/22 Status: Ordered omeprazole 20 mg oral delayed release capsule 1 cap, Oral, Daily, # 90 cap, 3 Refill(s), Pharmacy: [facility]58, 170, cm, 03/06/22 13:18:00 EDT, Height/Length [...] Daily, # 90 tab, 3 Refill(s), Pharmacy: [facility] #58, 170, cm, 03/06/22 13:18:00 EDT, Height/Length Dosing, 86, kg, 03/06/22 13:18:00 EDT, Weight Dosing Start Date: 07/22/22 Status: Ordered Send to [facility], [facility], Supply, See instructions, # 1 EA, 0 Refill(s) Start Date: 05/21/22 Status: Ordered Senna 8.6 mg oral tablet See Instructions, TAKE TWO TABLETS BY MOUTH EVERY DAY NEEDED FOR 14 DAYS, # 28 tab, 3 Refill(s),Pharmacy: [facility] #58, 170, cm, 03/06/22 13:18:00 EDT, Height/Length Dosing, 86, kg, 03/06/22 13:18:00 EDT, Weight Dosing Start Date: 06/15/22 Status: Ordered Symbicort 80 mcg-4.5 mcg/inh inhalation aerosol 2 puffs, Inhale, BID Start Date: 03/26/22 Status: Ordered traZODone 300 mg oral tablet See Instructions, TAKE ONE TABLET BY MOUTH AT BEDTIME, # 90 tab, 0 Refill(s), Pharmacy: [facility] #58, 170, cm, 03/06/22 13:18:00 EDT, Height/Length [...] Source Comment: Overview: 02/05/2016 Coronary angiogram at [facility]: LAD mid 50%, OM1 long 40%, RCA [...] Most recent to oldest [Reference Range]: 1 Peripheral Pulse Rate [60-100 bpm] 65 bp m (04/05/24 10:16 AM) Blood Pressure [90-140/60-90 mmHg] 141/8 2mmHg *HI* (04/05/24 10:16 AM) Mean Arterial Pressure, Cuff [65-140 mmH g] 102 mmHg (04/05/24 10:16 AM) Weight 74.80 kg (04/05/24 10:16 AM) Weight Measured (lbs) 164.906 lb (04/05/24 10:16 AM) Weight Dosing 74.800 kg (04/05/24 10:16 AM) Height 170 cm (04/05/24 10:16 AM) Height/Length Measured (inches) 66.93 in ch (04/05/24 10:16 AM) BSA Measured 1.88 m2 (04/05/24 10:16 AM) Body Mass Index 25.88 kg/m2 (04/05/24 10:16 AM) Social History Social History Type Response Tobacco Current everyday tob acco user Tobacco Use:. 1/2 pack since 01/2022 prior was 1 PPD per day. 40 year(s). Total pack years: 40. Sex Female Physician Outpatient Note * Daksha Tidwell EVENTS MANAGER: PERFORM Event Display: Office Clinic Note Physician Authored Date: [id number] MADISON COBB :1965 Age:58 years Sex:Female Visit Date:04/05/2024 Primary Care Physician: Asya Hand MD Chief Complaint sleep follow up, untreated nikki History of Present Illness 58 year old??female??here for sleep follow up.. ?? TODAY: Patient states that she thinks her hypoxia is causing seizures at night. She is not able to breathewell, stops breathing and gasping in her sleep. Has had 3 seizures in the last 2 years, which she has not had when we last met in 2021.?? She wears supplemental oxygen, but it does not always stay on her face at night. She is having trouble with racing mind and memory changes, her sleep is poor quality, she is restless all night, ?? She tried CPAP a few years ago, but struggled to get the mask fit right, couldn't breathe through her nose, and was sick at the time, so she gave up on trying to use it. ?? Shares that she is very distrustful of the world around her, feels doctors do not listen to her,and she is very depressed. She is still smoking because of her depression, but has thought about quitting. Review of Systems A 10-point REVIEW OF SYSTEM was obtained and reviewed, includes CONSTITUTIONAL, EYES, NOSE, THROAT,RESPIRATORY, HEART, GASTROINTESTINAL, UROLOGIC, MUSCULOSKELETAL, PSYCHIATRY, SKIN systems. Pertinent symptoms are discussed in history, otherwise negative. Physical Exam Vitals & Measurements HR:??65??(Peripheral)?? BP:??141/82?? SpO2:??93%?? HT:??170??cm?? WT:??74.80??kg?? BMI:??25.88?? BSA:??1.88?? General:??well appearing, appearing stated age, no acute distress,??normal??build HEENT: atraumatic skull, anicteric RESPIRATORY: quiet respiration, able to speak in full sentences without dyspnea, no accessory muscle use SKIN: no facial skin rash, no facial skin lesions PSYCHIATRIC: well groomed, fluent speech, good insight, linear thought process, good eye contact,balanced??affect NEUROLOGIC: alert, oriented, symmetric facial expression Clinic Assessment/Plan 1.??Obstructive sleep apnea??G47.33 2.??Nocturnal hypoxemia??G47.34 3.??Encounter for smoking cessation counseling??Z71.6 I provided greater than??40??minutes in the care of this patient, more than half the time was spentin [id number] counseling. ?? MADISON COBB??is a pleasant??58 year old?female??here for sleep follow up. ??with comorbidities of??COPD, hx IA x 2, CVA, hypertension, GERD, smoker (40+ pkg yr history), DJD,??depression ?? Clinical Data Reviewed: Walnut Sleepiness Scale: 06/19 ? Sleep Clinical Timeline:? 09/07/2000. ??PSG diagnostic. 1. ??96 obstructive apneas and 1 central apnea 2.?? RDI 14/hour, non-REM??index??7/hr, REM index 30/h 3. ??Oxygen saturation yanni 92% 4. ??Sleep efficiency 91% patient opted out of treatment at that time ?? 04/29/2022. ??PSG diagnostic 1. ??Mild obstructive sleep apnea,??overlap with very significant baseline nocturnal hypoxemia 2. ??Overall AHI 5.8/h, RDI 11.0/h,??REM AHI 15.2/h, supine AHI 14/h,??right lateral AHI 3/h, left lateral AHI??N/AA,??prone AHI N/AA 3.?? Mean SPO2 83% and??yanni??SPO2 76% on room air,??461.6 minutes spent with SPO2??less than or equal to 88% on room air.? 4. ??She was taken off supplemental oxygen during the sleep study for diagnostic purposes,??as hypopneas may be masked by supplemental oxygen.?? As she was able to maintain SPO2 greater than 80%, persleep study protocol,??she stayed on room air for the duration of the sleep study. 5. ??Occasional muscle fasciculations observed in leg EMG.?? PLM index 4.6/h. ??PLM arousal index 0.1/h. ?? 05/19/2022: Order was placed to start auto CPAP therapy and subsequent titration PSG. ?? 02/15/2024: MRI Brain. Chronic left parietal lobe infarction. No acute findings. ?? 02/23/2024: Zio Patch. Sinus rhythm with rare PACs and rare PVCs over 6 day monitoring period. Sinus rhythm. There was trivial, asymptomatic SVT with the longest episode lasting 14 beats. No significant arrhythmias. ?? 04/05/2024: Patient lost to follow up after ordering CPAP, states she struggled with the mask fit and felt too sick to continue trying to use it. She continues to c/o fatigue, poor sleep, waking up gasping for air and is using supplemental O2 at night which sometimes falls off at night. Reports that she has had what she calls seizures??and is going to see Dr. Huber in April. Will order repeat diagnostic PSG to qualify her for CPAP therapy. On citalopram, fluoxetine, and pregabalin 600mg. ? Today's Assessment and Plan: Extensive??discussion??about??the results of??her past PSG??in 2021.??We went over the risks of untreated severe nocturnal hypoxemia and how to relates to her comorbidities especially with her hx of stroke, IA, and COPD. Patient will need to have a repeat diagnostic PSG to qualify her for CPAP therapy, as she only briefly tried it and returned the machine in 2021.??She has lost a significant amount of weight, she reports due to illness, since 2021. Discussed what to expect on the night of her PSG and that she will most likely need to come back for a titration PSG to ensure adequate oxygenation. ?? Pt??reports??she??has had 3??nocturnal seizures describes as??sweating profusely,??drooling,??couldn't speak??well,??couldn't??move, was half??awake??and??had to??call her son for??help.??States the??last episode??was 1 month ago.??She does not have??an??official diagnosis of??seizure disorder and is not on??any antiepileptic??medication.??Chart??reviewed, recent MRI??Brain from??02/15/24??showed??no acute??changes,??chronic??parietal??infarction. 6 day??Zio??patch from??02/23/24??was NSR??with??runs of asymptomatic SVT. She does??not follow with a??purchasing associate. ?? Pt has thought about quitting smoking??but is not ready to do??so yet due to life stressors.??More than 5 minutes spent discussing smoking cessation counselling. ?? PSG Instructions: Obtain supine and lateral position sleep for comparison. Document medications taken on night of PSG. ?? Follow up: 3 months or??sooner if needed. ? Remote Scribed by Mirela Lama Problem List/Past Medical History Ongoing Active or [...] disorder Muscle pain Myocardial infarction Nicotine dependence Nocturnal hypoxemia Obstructive sleep apnea Pain in right hip joint Pain in [...] screws (09/26/1988)???Appendectomy???Procedure on right shoulder???Total hysterectomy Medications What How Much When Why Instructions Unchanged albuterol (Albuterol (Eqv-ProAir HFA) 90 mcg/ inh inhalation aerosol) 2 Puffs Inhale (breathe in) Every 3 hours as needed for as needed (USE WITH SPACER) Contact prescribing physician if questions or concerns ?? Unchanged aspirin (Aspirin Low Dose 81 mg oral tablet, chewable) See instructions CHEW ONE TABLET BY MOUTH EVERY DAY Contact prescribing physician if questions or concerns ?? Unchanged budesonide-formoterol (Symbicort 80 mcg-4.5 mcg/ inh inhalation aerosol) 2 Puffs Inhale (breathe in) 2 times a day Contact prescribing physician if questions or concerns ?? Unchanged citalopram Contact prescribing physician if questions or concerns ?? Unchanged DME RESP PAP / [facility]KKI Supplies (Send to [facility]) See instructions Send to [facility] Contact prescribing physician if questions or concerns ?? Unchanged FLUoxetine (FLUoxetine 20 mg oral capsule) 3 Capsules Oral (given by mouth) Every day Contact prescribing physician if questions or concerns ?? Unchanged hydrocortisone topical (hydrocortisone 2.5% topical cream) See instructions apply in a thin film to the affected skin and rub in gently and completely, use no more than 3 times daily, As needed for rash Contact prescribing physician if questions or concerns ?? Unchanged levETIRAcetam (Keppra 250 mg oral tablet) 2 tab Oral (given by mouth) 2 times a day Duration: 30 Days Contact prescribing physician if questions or concerns ?? Unchanged losartan (losartan 50 mg oral tablet) 1 tab Oral (given by mouth) Every day Duration: 90 Days Contact prescribing physician if questions or concerns ?? Unchanged metoprolol (metoprolol succinate 25 mg oral tablet, extended release) 1 tab Oral (given by mouth) Every day Duration: 90 Days Contact prescribing physician if questions or concerns ?? Unchanged naproxen (naproxen 500 mg oral tablet) 1 tab Oral (given by mouth) 2 times a day as needed for as needed for pain As directed Contact prescribing physician if questions or concerns ?? Unchanged nicotine (nicotine 7 mg/ 24 hr transdermal film, extended release) 1 patch(es) Transdermal (apply on the skin) Every day Duration: 14 Days Contact prescribing physician if questions or concerns ?? Unchanged omeprazole (omeprazole 20 mg oral delayed release capsule) 1 Capsules Oral (given by mouth) Every day Contact prescribing physician if questions or concerns ?? Unchanged ondansetron (ondansetron 8 mg oral tablet) 20 EA, TAKE ONE TABLET BY MOUTH EVERY 6 TO 8 HOURS NEEDED Contact prescribing physician if questions or concerns ?? Unchanged pregabalin (Lyrica 300 mg oral capsule) 1 Capsules Oral (given by mouth) Every day Duration: 28 Days Contact prescribing physician if questions or concerns ?? Unchanged pregabalin (pregabalin 300 mg oral capsule) 28 EA, TAKE ONE CAPSULE BY MOUTH EVERY DAY Contact prescribing physician if questions or concerns ?? Unchanged rosuvastatin (rosuvastatin 10 mg oral tablet) 1 tab Oral (given by mouth) Every day Contact prescribing physician if questions or concerns ?? Unchanged senna (Senna 8.6 mg oral tablet) See instructions TAKE TWO TABLETS BY MOUTH EVERY DAY NEEDED FOR 14 DAYS Contact prescribing physician if questions or concerns ?? Unchanged traZODone (traZODone 300 mg oral tablet) See instructions TAKE ONE TABLET BY MOUTH AT BEDTIME Contact prescribing physician if questions or concerns ?? Unchanged umeclidinium (Incruse Ellipta 62.5 mcg/ inh inhalation powder) 1 Each Inhale (breathe in) Every 24 hours Chronic obstructive lung disease Duration: 30 Days doses should be taken at least 24 hours apart Contact prescribing physician if questions or concerns ? What When Comments Stop Taking diphenoxylate-atropine (diphenoxylate-atropine 2.5 mg-0.025 mg oral tablet) 30 EA, TAKE ONE TABLET BY MOUTH EVERY 6 HOURS NEEDED ?? Stop Taking topiramate (topiramate 100 mg oral tablet) 180 tab ?? Stop Taking topiramate (topiramate 50 mg oral tablet) 120 EA, TAKE 1 TABLET BY MOUTH AT BEDTIME FOR 1 WEEK, THEN 1 TABLET TWICE DAILY FOR 1 WEEK, THEN 1 TABLET IN THE MORNING AND 2 TABLETS AT BEDTIME FO ?? Allergies ampicillin??(Facial swelling, Skin rash) azithromycin??(Itching) codeine??(Itching) [...] Recorded Comments : Verified by CS and GGJ. Patient tolerated injection; bandaid applied. SARS-CoV-2 (COVID-19) [...] vaccine, live 07/27/2018 Recorded Electronically Signed on 04/05/2024 11:34 EDT Daksha Tidwell EVENTS MANAGER Electronically Signed on 04/05/2024 11:20 EDT Mirela Lama Patient Care team information Care Team Personnel Name: Asya Hand MD Position: PowerChart View Only Member Role: Informed Provider Address: Address: [address] Care Team Related Persons Name: PHANI LIPSCOMB Name: DENITA RAO
--- OUTSIDE RECORDS SUMMARY | 2024-04-13 11:19 | XMS_ITS | Encounter Summary ---
Author Organization [facility] [place] [address] Care Team Providers Care Route Driver Coin Machines Name Role Phone Asya Hand MD Primary Care Provider Encounter Details Date Type Department Care Team (Late st Contact Info) Description 12/28/2018 Ancillary Procedure [place] [address] Asya Hand MD [address] [place], [place] [id number] Social History Tobacco Use Types Packs/Day Years [...] Associated Diagnosis Comments FILM LIBRARY STORAGE ONLY DX SPINE Routine 12/28/2018 12:00 AM EDT documented in this encounter Results * Film Library- Storage Only DX Spine (12/28/2018 12:00 AM EDT) Narrative [facility] - 08/10/2019 3:32 PM EST This exam is auto-finalizing. It's purpose is for storage only. Asya Hand MD [facility] FILM LIBRARY ORD ERABLES [facility] [place], [place] documented in this encounter Visit Diagnoses Not on filedocumented in this encounter Care Teams Route Driver Coin Machines Relationship Specialty Start Date End Date Asya Hand MD [address] [place] [address] PCP - General Oncology 06/11/16 08/09/19 documented as of this encounter
--- OUTSIDE RECORDS SUMMARY | 2024-04-13 11:19 | XMS_ITS | Encounter Summary ---
Author Organization [facility] [place] [address] Care Team Providers Care Auto Tech Name Role Phone Homer Merida MD Primary Care Provider [phone] Reason for Visit * Reason Comments Medication Refill Encounter Details Date Type Department Care Team (Late st Contact Info) Description 11/30/2017 Ref[place] [address] Wyatt Coreas MD [facility] [address] [place] [address] Social History Tobacco Use Types Packs/Day Years [...] on filedocumented in this encounter Care Teams Auto Tech Relationship Specialty Start Date End Date Homer Merida MD [address] [place] [address] PCP - General Family Medicine 08/10/19 05/26/23 documented as of this encounter
--- OUTSIDE RECORDS SUMMARY | 2024-04-13 11:19 | XMS_ITS | Encounter Summary ---
Author Organization [facility] [place] [address] Care Team Providers Care Quilter Fixer Name Role Phone Homer Merida MD Primary Care Provider [phone] Encounter Details Date Type Department Care Team (Late st Contact Info) Description 09/16/2022 1:00 PM EST Telehealth [place] [address] Telehealth, Neurology None Social History Tobacco Use [...] Consult Note - Mehrdad Plunkett MD - 09/16/2022 1:00 PM EST [facility] TELENEUROLOGY EMERGENT TELENEUROLOGY CONSULT NOTE Date 09/16/22 Patient: Sahra Williamson : 1965 Gender: female VISIT Requesting Location: [facility] Requesting Physician: Layne Daniel MD Consent obtained from: Patient Diagnosis/Reason for Consult: Seizure Arrival Date: 09/16/2022 Arrival Time: 7 am Consult Request Time: 12:57 pm Start Time of Video Consult: 1:05 pm PROVIDER History: 57 year old woman with PMHx of stroke several years ago with symptoms reported as left-sided weakness, in addition hx of childhood epilepsy resolved, with isolated GTC seizure in 2009 without initiation of AED back then. She presented to the emergency room after reporting waking up in the middle of the night with her right leg shaking. She tried to get up and then lost balance and fell down and lost consciousness subsequently. She reports waking up to find she had urine incontinence while being extremely tired and fatigued. She presented to the emergency room with another seizure witnessed in route. She lives by herself and takes oxycodone 4 times daily for severe back pain. She denies missing anydose and last dose was taken last night. She fold of the [facility]. She acquired COVID-19 recently and was started on Paxlovid??3 days ago. Past Medical History: Past Medical History: Diagnosis Date ??? Depression ??? 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 HTN (hypertension) ??? Hyperlipidemia ??? Migraine ??? Neuropathy ??? Seizures Patient Active Problem List Diagnosis Code ??? [...] M41.9 ??? Low back pain, non-specific M54.50 Current Medications: ??? VENTOLIN HFA 90 mcg/actuation HFA Aerosol Inhaler ??? cefPODOXime (VANTIN) 200 mg Tablet ??? hydrOXYzine (ATARAX) 25 mg Tablet ??? ibuprofen (ADVIL;MOTRIN) 800 mg Tablet ??? omeprazole (PRILOSEC) 40 mg Capsule, Delayed Release(E.C.) ??? rosuvastatin (CRESTOR) 10 mg Tablet ??? SENNA 8.6 mg Tablet ??? glecaprevir/pibrentasvir (MAVYRET ORAL) ??? FLOVENT HFA 44 mcg/actuation HFA Aerosol Inhaler ??? EASIVENT HOLDING CHAMBER Spacer ??? losartan (COZAAR) 50 mg Tablet ??? NARCAN 4 mg/actuation [place], Non-Aerosol ??? oxyCODONE (ROXICODONE) 10 mg Tablet ??? traZODone (DESYREL) 50 mg Tablet ??? FLUoxetine (PROZAC) 20 mg Capsule ??? pregabalin (LYRICA) 50 mg Capsule ??? aspirin 81 mg Tablet, Chewable ??? meTOPROLOL succinate (TOPROL-XL) 50 mg Tablet Sustained Release 24 hr ??? nitroGLYcerin (NITROSTAT) 0.4 mg Tablet, Sublingual Allergies: Allergies Allergen Reactions ??? Iodine And Iodide Containing Products Diarrhea and Nausea And Vomiting Other reaction(s): Flushing some kind of a heart stress test Not sure if dobutamine stress or nuclear stress test ??? Imitrex [Sumatriptan Succinate] ??? Alprazolam ??? Amoxicillin Unknown pt unsure ??? Ampicillin Itching ??? Azithromycin Itching ??? Codeine Phosphate Itching ??? Sulfa (Sulfonamide Antibiotics) Itching Edema Neurologic Social History: Are you a current smoker or have you ever smoked: YES 0.50 packs/day for 25.00 years; Pack years: 12.50 Do you consume alcohol: NO Vitals: Pulse: 83 Blood Pressure: 166/91 NIH STROKE SCALE 1A. Level of Consciousness 1 1B. LOC Questions 0 1C. LOC Commands 0 2. Best Gaze 0 3. Visual 0 4. Facial Palsy 0 5. Motor Arm Left Arm 0 Right Arm 1 6. Motor Leg Left Leg 0 Right Leg 3 7. Limb Ataxia 0 8. Sensory 0 9. Best Language 0 10. Dysarthria 0 11. Extinction and Inattention (formerly neglect) 0 Neurologic Examination: Patient is laying in bed drowsy but arousable. She could provide significant amount of the history but not clear on some details. Her son provides clear history as well. Gait was deferred. Radiology Imaging Imaging/Results: Not done Labs: N/A CLINICAL IMPRESSION/DIAGNOSIS: Patient's presentation is most likely consistent with generalized tonic-clonic seizure with potentially focal onset with secondary generalization specially with her experiencing right leg shaking at [...] as part of its side effect profile. Thepatient takes oxycodone 4 times daily and last dose was before bedtime. No other medication introduction or withdrawal has been identified as a trigger. I recommend obtaining head CT scan initially to rule out acute intracranial abnormality and follow that with brain MRI with and without contrast (unless brain MRI can be started with if available shortly). We discussed the initiation of AED whichseems to be of the right step with her second seizure in childhood history of epilepsy. Keppra would be an appropriate choice by taking 500 mg twice daily. Other precautions should be discussed with the patient. Meanwhile she can be observed until back to baseline with supportive management and headache treatment. PT/OT will be needed for disposition planning. RECOMMENDATIONS/PLAN: -Head CT scan followed by brain MRI with and without contrast. -Supportive management for headache with IV fluids and pain management. -Start Keppra 500 g twice daily -Consider discussing alternatives toPaxlovid unless medically needed OBSERVATION/ADMISSION/TRANSFER: Continue observation and management until back to baseline. documented in this encounter Plan of Treatment Not on file documented as of this encounter Visit Diagnoses Not on filedocumented in this encounter Care Teams Quilter Fixer Relationship Specialty Start Date End Date Homer Merida MD [address] [place] [phone] PCP - General Family Medicine 08/10/19 05/26/23 documented as of this encounter
--- OUTSIDE RECORDS SUMMARY | 2024-04-13 11:19 | XMS_ITS ---
Author Organization Unknown Address [address] [place] [phone] Phone Care Team Providers Care Professor Of Surgery Name Role Phone CAROLINE Cox Attending Unavailable MADHU NORIEGA Primary Unavailable Social History Type Status Start Date End Date Code Code Syst em Smoking History Current every day smoker [id number] SNOMED CT Sex Female Hospital Discharge Instructions Should you have any questions prior to discharge, please contact a member of your healthcare team. If you have left the hospital and have any questions, please contact your primary care physician. Reason For Referral No Data Found Plan of Treatment No Data Found Encounters Encounter Diagnosis Start Date Code Code Sys tem Atherosclerotic heart diseas e of [place] coronary artery without angina pectoris 01/20/2023 SNOMED-CT Personal Care Team Section Performer Name Performer Role Active Date Inactive Da te
--- OUTSIDE RECORDS SUMMARY | 2024-04-13 11:19 | XMS_ITS | Encounter Summary ---
Author Organization [facility] Address [facility] [place] [address] Care Team Providers Care Oil Derrick Operator Name Role Phone Homer Merida MD Primary Care Provider [phone] Encounter Details Date Type Department Care Team (Late st Contact Info) Description 09/19/2022 10:10 AM EST Telehealth [place] [address] Telehealth, Neurology None Social History Tobacco Use [...] on filedocumented in this encounter Care Teams Oil Derrick Operator Relationship Specialty Start Date End Date Homer Merida MD [address] [place] [phone] PCP - General Family Medicine 08/10/19 05/26/23 documented as of this encounter
--- OUTSIDE RECORDS SUMMARY | 2024-04-13 11:19 | XMS_ITS | Encounter Summary ---
Author Organization [facility] Address [facility] [place] [address] Care Team Providers Care Train Director Name Role Phone Asya Hand MD Primary Care Provider Encounter Details Date Type Department Care Team (Late st Contact Info) Description 02/27/2019 Ancillary Procedure [place] [address] Asya Hand MD [address] [place], [place] [phone] Social History Tobacco Use Types Packs/Day Years [...] FILM LIBRARY STORAGE ONLY DX SPINE Routine 02/27/2019 12:00 AM EDT documented in this encounter Results * Film Library- Storage Only DX Spine (02/27/2019 12:00 AM EDT) Narrative [facility] - 08/10/2019 3:31 PM EST This exam is auto-finalizing. It's purpose is for storage only. Asya Hand MD [facility] FILM LIBRARY ORD ERABLES [place], [place] documented in this encounter Visit Diagnoses Not on filedocumented in this encounter Care Teams Train Director Relationship Specialty Start Date End Date Asya Hand MD [address] [place] [address] PCP - General Oncology 06/11/16 08/09/19 documented as of this encounter
--- OUTSIDE RECORDS SUMMARY | 2024-04-13 11:19 | XMS_ITS | Encounter Summary ---
Author Organization [facility] [place] [address] Care Team Providers Care Configuration Management Administrator Name Role Phone Homer Merida MD Primary Care Provider [phone] Encounter Details Date Type Department Care Team (Late st Contact Info) Description 12/28/2021 Telephone [facility] [place] [phone] Patty Ferrer RN Social History Tobacco Use Types Packs/Day [...] encounter Miscellaneous Notes * Telephone Encounter - Patty Ferrer RN - 12/28/2021 1:42 PM EDT Outgoing call to Sahra to inform her that Dr. Alamo would like her to be off of oral prednisone for 7 days before rescheduling. Sahra voiced understanding. She was given the number to schedulers. documented in this encounter Plan of Treatment Not on file documented as of this encounter Visit Diagnoses Not on filedocumented in this encounter Care Teams Configuration Management Administrator Relationship Specialty Start Date End Date Homer Merida MD [address] [place] [phone] PCP - General Family Medicine 08/10/19 05/26/23 documented as of this encounter
--- OUTSIDE RECORDS SUMMARY | 2024-04-13 11:19 | XMS_ITS | Encounter Summary ---
Author Organization [facility] [place] [address] Care Team Providers Care Vehicle Maintenance Technician Name Role Phone Homer Merida MD Primary Care Provider [phone] Encounter Details Date Type Department Care Team (Late st Contact Info) Description 11/06/2021 Ancillary Procedure [place] [phone] Homer Merida MD [address] [place] [address] Social History Tobacco Use Types Packs/Day Years [...] FILM LIBRARY STORAGE ONLY MR SPINE Routine 11/06/2021 12:00 AM EST documented in this encounter Results * Film Library- Storage Only MR Spine (11/06/2021 12:00 AM EST) Narrative [facility] - 12/09/2021 4:25 PM EDT This exam is auto-finalizing. It's purpose is for storage only. Homer Merida MD [facility] FILM LIBRARY ORD ERABLES [place], [place] documented in this encounter Visit Diagnoses Not on filedocumented in this encounter Care Teams Vehicle Maintenance Technician Relationship Specialty Start Date End Date Homer Merida MD [address] [place] [phone] PCP - General Family Medicine 08/10/19 05/26/23 documented as of this encounter
--- OUTSIDE RECORDS SUMMARY | 2024-04-13 11:19 | XMS_ITS | Encounter Summary ---
Author Organization [facility] Address [facility] [place] [address] Care Team Providers Care Nuclear Technician Name Role Phone Homer Merida MD Primary Care Provider [phone] Encounter Details Date Type Department Care Team (Late st Contact Info) Description 04/29/2020 Ancillary Procedure Radiology Library at [facility] [place] [address] Mayur Monroy III, MD [facility] [place] [address] Social History Tobacco Use Types Packs/Day Years [...] Diagnosis Comments FILM LIBRARY STORAGE ONLY MR HEAD Routine 04/29/2020 12:00 AM EDT documented in this encounter Results * Film Library- Storage Only MR Head (04/29/2020 12:00 AM EDT) Narrative [facility] - 05/09/2020 11:31 AM EDT This exam is auto-finalizing. It's purpose is for storage only. Mayur Monroy III, MD IMG FILM LIBRARY ORDERABLES Performing Organization Address City/State/[facility] Co de Phone Number [place], [place] documented in this encounter Visit Diagnoses Not on filedocumented in this encounter Care Teams Nuclear Technician Relationship Specialty Start Date End Date Homer Merida MD [address] [place] [phone] PCP - General Family Medicine 08/10/19 05/26/23 documented as of this encounter
--- OUTSIDE RECORDS SUMMARY | 2024-04-13 11:19 | XMS_ITS ---
Author Organization Unknown Address [address] [place] [phone] Phone Care Team Providers Care Can Operator Name Role Phone CAROLINE Cox Attending Unavailable VERONICA Singh Primary Unavailable Social History Type Status Start Date End Date Code Code Syst em Smoking History Current every day smoker [id number] SNOMED CT Sex Female Hospital Discharge Instructions Should you have any questions prior to discharge, please contact a member of your healthcare team. If you have left the hospital and have any questions, please contact your primary care physician. Reason For Referral No Data Found Plan of Treatment No Data Found Encounters Encounter Diagnosis Start Date Code Code Sys tem 01/19/2024 [id number] SNOMED-CT Personal Care Team Section Performer Name Performer Role Active Date Inactive Da te
--- OUTSIDE RECORDS SUMMARY | 2024-04-13 11:19 | XMS_ITS | Encounter Summary ---
Author Organization [facility] [place] [address] Care Team Providers Care Applied Anthropologist Name Role Phone Homer Merida MD Primary Care Provider [phone] Reason for Referral * Consultation (Routine) - Closed Specialty Diagnoses / Procedures Referred By Maurisio bergman Referred To Contact Diagnoses Cervical spondylosis Quinn Huynh MD [facility] [place] [address] [address] Referral ID Status Reason Start Date Expiration Date V isits Requested Visits Authorized [id number] Closed Consult, Test & Treat 08/20/2019 02/16/2020 1 1 Reason for Visit * Reason Comments Advice Only Chronic neck pain w/ UE tingling & weakness, severe foraminal stenosis at C4-5 * Consultation (CLINT) - Closed Specialty Diagnoses / Procedures Referred By Maurisio bergman Referred To Contact Neurosurgery Diagnoses Other cervical disc degeneration, unspecified cervical region Homer Merida MD [address] [place] [phone] [facility] [address] [place] [phone] Referral ID Status Reason Start Date Expiration Date V isits Requested Visits Authorized [id number] Closed Consult, Test & Treat Connection Center PCP Updated and/or Approved 08/10/2019 08/09/2020 1 1 Encounter Details Date Type Department Care Team (Late st Contact Info) Description 08/20/2019 9:00 AM EST Office Visit Neurosurgery at [facility] [place] [address] Quinn Huynh MD [facility] [place] [address] Cervical spondylosis Social History Tobacco Use Types Packs/Day Years [...] Sign Reading Time Taken Comments Blood Pressure 124/86 08/20/2019 8:40 AM EST Pulse 70 08/20/2019 8:40 AM EST Temperature - - Respiratory Rate - - Oxygen Saturation - - Inhaled Oxygen Concentration - - Weight 76.2 kg (168 lb) 08/20/2019 8:40 AM EST Height 170.2 cm (5' 7) 08/20/2019 8:40 AM EST Body Mass Index 26.31 08/20/2019 8:40 AM EST documented in this encounter Progress Notes * Quinn Huynh MD - 08/20/2019 9:00 AM EST [facility] SECTION OF NEUROSURGERY DATE:08/20/2019 PCP:Homer Merida MD Sahra Williamson is a 54 y/o female seen in the neurosurgery clinic at the request of Dr. Merida for evaluation and management of chronic neck and arm pain. She has a h/o of axial neck and back pain that has been present for years and is s/p both cervical and lumbar fusions. This past summer, however, there was an acute event in which she was tackled. Since that time she has experienced increased neck pain as well as left upper extremity pain and paresthesias that involves the entire arm and hand. This has been refractory to oxycodone and Lyrica. Denies right upper extremity pain, numbness, paresthesias, or weakness. No bowel or bladder symptoms. No difficulty with ambulation. She has not undergone physical therapy recently for her pain or GAYATRI. Her prior neck surgery was for axial neck pain and was in ~ 1999. Her ROS was notable for dyspnea secondary to a respiratory infection that has been treated with antibiotics and oral steroids. Interestingly the steroids did not benefit her radicular symptoms. Otherwise negative for cardiac, /GI, musculoskeletal, endocrine, or constitutionalsymptoms. Her past medical history is notable for hypertension and prior ND requiring cardiac stents. She reports that this has been stable and she is followed by a signal manager. Hypertension is well controlled. + COPD. No known hepatic, renal, or endocrine disease. No h/o bleeding disorders or thromboses. Her prior surgeries were well tolerated without complications from general anesthesia. + PRES and hemorrhage. + tobacco use, occasional alcohol, but denies other elicit drug use. Recently lost her son to an IVDU and another son had a suicide attempt this summer. Raising her two grandchildren (7 + 9).Not able to work otherwise due to disability. EXAM: Vitals Office Visit from 08/20/2019 in [place] [facility] Weight 76.2 kg (168 lb) Height 170.2 cm (5' 7) BSA (Calculated - sq m) 1.9 sq meters BMI (Calculated) 26.31 Heart Rate 70 BP 124/86 On exam she was pleasant and interactive. Her spontaneous speech was fluent and appropriate withoutdysphonia or hoarseness. R sided cervical incision from prior ACDF that is well healed. Negative Sperlings maneuver bilaterally. No restrictions on cervical range of motion. Her strength was 5/5 on segmental motor exam throughout the upper and lower extremities. No evidence of hyperreflexia or Hoffmans, or clonus. LT sensation was intact and symmetric bilaterally. Able to stand unassisted withoutassistance and ambulate with a normal gait. Respirations were event and unlabored. Able to speak infull sentences comfortable. No peripheral edema or calf tenderness. IMAGING: MRI cervical spine (03/06/19) was reviewed. There is a prior ACDF from C5-C7. Paracentral disc protrusion and posterior osteophytes at C4-5 lead to moderate cervical stenosis. The disc material abuts but does not compress the spinal cord. There is no evidence of cord signal abnormality. No other areas of severe stenosis or cord compression. There is severe foraminal stenosis on the left at C4-5 and C5-6 but not at other levels. No other concerning findings. A/P: 54 y/o female seen for evaluation of chronic axial neck pain with radicular symptoms involvingthe entire left upper extremity. The patient reports that the onset of symptoms was after a fall this past summer in the context of being tackled and has persisted since that time. No objective neurologic findings on exam or evidence of cervical myelopathy. Her MRI from after the accident does not reveal any evidence of cord compression. There is narrowing immediately adjacent to her fusion that has progressed since her last MR. Foraminal stenosis at C4-5 that is more significant on the left but not the lower cervical levels. During the appointment we reviewed her symptoms in the context of her imaging. The radicular symptoms involve multiple nerve distributions that are not accounted for by her foraminal stenosis at C4-5and C5-6. I do not see any indications for surgery at this time and have recommended exhausting cons ervative measures including possible increase in K[place]idy if tolerated, evaluation for GAYATRI, and physical therapy. Concerning signs and symptoms were reviewed at length with the patient and she knows to contact my office should they develop. Approximately 30 of this 40 minute consultation were spent in direct patient counseling. Quinn Huynh MD documented in this encounter Plan of Treatment Scheduled Referrals Name Type Priority Associated Diagnoses Orde r Schedule Referral to Pain Management Outpatient Referral Routine Cervical spondylosis Ordered: 08/20/2019 documented as of this encounter Visit Diagnoses Diagnosis Cervical spondylosis Cervical spondylosis without myelopathy documented in this encounter Care Teams Applied Anthropologist Relationship Specialty Start Date End Date Homer Merida MD [address] [place] [phone] PCP - General Family Medicine 08/10/19 05/26/23 documented as of this encounter
--- OUTSIDE RECORDS SUMMARY | 2024-04-13 11:19 | XMS_ITS ---
Author Organization Unknown Address [address] [place] [phone] Phone Care Team Providers Care Garden Worker Name Role Phone CAROLINE Cox Attending Unavailable MADHU NORIEGA Primary Unavailable Social History Type Status Start Date End Date Code Code Syst em Smoking History Current every day smoker [id number] SNOMED CT Sex Female Hospital Discharge Instructions Should you have any questions prior to discharge, please contact a member of your healthcare team. If you have left the hospital and have any questions, please contact your primary care physician. Reason For Referral No Data Found Plan of Treatment No Data Found Encounters Encounter Diagnosis Start Date Code Code Sys tem Canceled operative procedure 04/09/2022 [id number] SNOMED-CT Personal Care Team Section Performer Name Performer Role Active Date Inactive Da te
--- OUTSIDE RECORDS SUMMARY | 2024-04-13 11:19 | XMS_ITS | Encounter Summary ---
Author Organization [facility] [place] [address] Care Team Providers Care Printing Plate Maker Name Role Phone Asya Hand MD Primary Care Provider Reason for Referral * Consultation (Routine) - Closed Specialty Diagnoses / Procedures Referred By Contac t Referred To Contact Orthopaedics Diagnoses Other form of scoliosis of thoracic spine Tessa Vázquez [place] [address] [facility] [address] [place] [phone] Referral ID Status Reason Start Date Expiration Date V isits Requested Visits Authorized [id number] Closed Consult, Test & Treat 07/19/2018 07/19/2019 1 1 Reason for Visit * Reason Comments Pain Management * Consultation (Urgent) - Closed Specialty Diagnoses / Procedures Referred By Contac t Referred To Contact Pain Management Diagnoses Other intervertebral disc degeneration, lumbar region Myalgia Chronic viral hepatitis C evaluate for injections Homer Merida MD [address] [place] [address] [facility] [address] [place] [phone] Referral ID Status Reason Start Date Expiration Date Visits Re quested Visits Authorized [id number] Closed 04/25/2018 04/25/2019 1 1 Encounter Details Date Type Department Care Team (Late st Contact Info) Description 07/19/2018 3:00 PM EDT Office Visit Pain Management at [facility] ([facility] [place] [phone] Tessa Vázquez APRN [facility] [place] [address] Other form of scoliosis of thoracic spine; Low back pain, non-specific Social History Tobacco Use Types Packs/Day Years [...] Sign Reading Time Taken Comments Blood Pressure 127/84 07/19/2018 3:03 PM EDT Pulse 65 07/19/2018 3:03 PM EDT Temperature - - Respiratory Rate - - Oxygen Saturation 100% 07/19/2018 3:03 PM EDT Inhaled Oxygen Concentration - - Weight 79.7 kg (175 lb 9.6 oz) 07/19/2018 3:03 P M EDT Height 168.9 cm (5' 6.5) 07/19/2018 3:03 PM EDT Body Mass Index 27.92 07/19/2018 3:03 PM EDT documented in this encounter Progress Notes * Tessa Vázquez, MYAH - 07/19/2018 3:00 PM EDT PAIN CLINIC CONSULTATION Date of Consultation: July 19, 2018 I am seeing Ms. Williamson at the request of Homer Merida for my opinion and recommendations regarding evaluate for injections. Chief Complaint: Chief Complaint Patient presents with ??? Pain Management HPI: Subjective Sahra Williamson is a 53 y.o. female who presents today for consult for pain management evaluation forinjections for back pain. Low back pain - Onset: sudden onset, states that when she was camping she had sudden pain in her back and has struggled with back pain on and off and it has been getting worse. Since onset pain iimproved Location: midline low back Duration:at least 20 years Characteristics: aching Patient states that she had injections done at [facility] these gave her good improvement with her low back pain. She is able to walk and do most activities. She reports she missed an appointment with [facility] due to being inpatient for a heart attack and is trying to get back in withfor treatment. Patient states overall her low back pain has been doing well however she has some pain in the middle of her back that is more to the right side. She states a history of scoliosis. Aching burning painon the right back she has tried ice and heat with little improvement. She is also tried CBD oil. myD-H Pain 04/28/2011 MODEFL Expectation 5 EVALUATIONS: TYPE DATE Orthopaedics no Neurosurgery unsure DIAGNOSTIC STUDIES: brought CD with MRI head and chest Xray ACTIVITY LEVEL: difficulty performing ADL's: no Exercise: walking yes, mid back pain is somewhat limiting her activity. Treatment Goals: -increase activity -decrease in pain Mid back Mental Health: Depression and anxiety mixed disorder Alcoholism In counseling SOCIAL HISTORY: Social History Socioeconomic History ??? Marital status: Spouse name: Not on file ??? Number of children: Not on file ??? Years of education: Not on file ??? Highest education level: Not on file Social Needs ??? Financial resource strain: Not on file ??? Food insecurity - worry: Not on file ??? Food insecurity - inability: Not on file ??? Transportation needs - medical: Not on file ??? Transportation needs - non-medical: Not on file Occupational History ??? Not on file Tobacco Use ??? Smoking status: Current Every Day Smoker Packs/day: 0.50 Years: 25.00 Pack years: 12.50 Types: Cigarettes ??? Smokeless tobacco: Never Used ??? Tobacco comment: avs information Substance and Sexual Activity ??? Alcohol use: No Alcohol/week: 0.0 oz Comment: Was an alcoholic until a year ago and prior to that for over 17 years was a heavy alcoholic ??? Drug use: Yes Types: Marijuana Comment: Occasional ??? Sexual activity: Yes Partners: Male Other Topics Concern ??? Not on file Social History Narrative ??? Not on file Aberrant behaviors/Risk Assessment: alcohol intake:history of alcohol abuse and current use a few drinks Other drugs: States she uses marijuana almost evening uses this to help with sleep and to get stoned. Denies using any other illegal drugs than marijuana. OPIOID RISK ASSESSMENT OPIOID RISK TOOL Female Male 1. Family history of Substance Abuse Alcohol [] 1 [] 3 Illegal Drugs [] 2 [] 3 Prescription Drugs [] 4 [] 4 2. Personal History of Substance Abuse Alcohol [] 3 [] 3 Illegal Drugs [x] 4 [] 4 Prescription Drugs [x] 5 [] 5 3. Age (colby box if 16-45) [] 1 [] 1 4. History of Preadolescent Sexual Abuse [] 3 [] 0 5. Psychological Disease Attention Deficit Disorder, Obsessive Compulsive D/o, Bipolar, Schizophrenia [] 2 [] 2 Depression [x] 1 [] 1 TOTAL: 9 Comments about ORT in relation to this patient: Opioid Risk Category: high risk >8 Total Score Risk Category: 0-3 = Low Risk 4-7 = Moderate Risk > 8 = High Risk FAMILY HISTORY: Family History Problem Relation Age of Onset ??? Coronary Artery Disease Early Onset Father ??? Cerebrovascular Accident Mother PAST MEDICAL HISTORY: Past Medical History: Diagnosis Date ??? Depression ??? 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 HTN (hypertension) ??? Hyperlipidemia ??? Migraine ??? Neuropathy ??? Seizures PAST SURGICAL HISTORY: Past Surgical History: Procedure Laterality Date ??? ANKLE SURGERY Left ??? APPENDECTOMY ??? CERVICAL FUSION ??? HYSTERECTOMY ??? LUMBAR LAMINECTOMY ??? SHOULDER SURGERY Right ALLERGIES: Imitrex [sumatriptan succinate]; Alprazolam; Amoxicillin; Ampicillin; Azithromycin; Codeine phosphate; and Sulfa (sulfonamide antibiotics) MEDICATIONS: Medications 07/19/18 6327 Medication Sig Taking? FLOVENT HFA 44 mcg/actuation HFA Aerosol Inhaler USE 2 PUFFS BY MOUTH TWICE DAILY Yes EASIVENT HOLDING CHAMBER Spacer USE DIRECTED Yes loratadine (CLARITIN) 10 mg Tablet TAKE ONE TABLET BY MOUTH EVERY DAY Yes losartan (COZAAR) 50 mg Tablet TAKE 1 2 TABLET BY MOUTH ONCE DAILY Yes oxyCODONE (ROXICODONE) 10 mg Tablet TAKE ONE TABLET BY MOUTH THREE TIMES A DAY NEEDED Yes traZODone (DESYREL) 50 mg Tablet Take 100 mg by mouth. Yes FLUoxetine (PROZAC) 20 mg Capsule Take 3 capsules by mouth daily. Yes pregabalin (LYRICA) 50 mg Capsule Take 1 capsule by mouth 3 times daily as needed (for anxiety). Yes aspirin 81 mg Tablet, Chewable Take 81 mg by mouth daily. Yes atorvastatin (LIPITOR) 40 mg Tablet Take 1 tablet by mouth every evening. Yes clopidogrel (PLAVIX) 75 mg Tablet Take 1 tablet by mouth daily. Yes meTOPROLOL succinate (TOPROL-XL) 50 mg Tablet Sustained Release 24 hr Take 1 tablet by mouth daily.Yes montelukast (SINGULAIR) 10 mg Tablet Take 10 mg by mouth nightly. Yes NARCAN 4 mg/actuation [place], Non-Aerosol SPRAY 1 SQUIRT NASALLY NEEDED FOR OVERDOSE amLODIPine (NORVASC) 5 mg Tablet Take 1 tablet by mouth daily. Patient not taking: Reported on 07/19/2018 prazosin (MINIPRESS) 1 mg Capsule Take 1 capsule by mouth nightly. Patient not taking: Reported on 07/19/2018 nicotine (NICODERM CQ) 7 mg/[address] 1 patch onto the skin daily. Patient not taking: Reported on 07/19/2018 nitroGLYcerin (NITROSTAT) 0.4 mg Tablet, Sublingual Place 1 tablet under the tongue every 5 minutesas needed for Chest pain. Patient not taking: Reported on 07/19/2018 lamoTRIgine (LAMICTAL) 150 mg Tablet Take 150 mg by mouth daily. ROS: Review of Systems Constitutional: Negative for chills and fever. HENT: Negative for sinus pain. Eyes: Negative for pain. Respiratory: Negative for chest tightness. Cardiovascular: Negative for chest pain. Neurological: Negative for weakness and numbness. PHYSICAL EXAM: BP 127/84 Pulse 65 Ht 168.9 cm (5' 6.5) Wt 79.7 kg (175 lb 9.6 oz) SpO2 100% BMI 27.92 kg/m?? Physical Exam Constitutional: She is oriented to person, place, and time. She appears well- developed and well-nourished. HENT: Head: Normocephalic and atraumatic. Eyes: Pupils are equal, round, and reactive to light. Cardiovascular: Intact distal pulses. Pulmonary/Chest: Effort normal. No respiratory distress. Musculoskeletal: Lumbar without erythema, edema or ecchymosis. No lumbar tenderness. Negative Facet sings. Negative Straight Leg raise patrizia. Scoliosis noted with bending, right thoracic region more pronounced compared to left. Neurological: She is alert and oriented to person, place, and time. She has normal strength and normal reflexes. No sensory deficit. She displays a negative Romberg sign. Coordination and gait normal. Skin: Skin is warm and dry. RADIOLOGIC DATA: No spine images isolated on disc for review ASSESSMENT: Assessment Encounter Diagnoses Name Primary? Other form of scoliosis of thoracic spine ??? Low back pain, non-specific Overall patient reports that she has had good benefit from the injection she had at [facility]. She exhibits good range of motion and reports satisfactory activity tolerance regarding her low back pain. She states she has been having mid back pain right-sided with a history of scoliosis I have referred her to an orthopedist for further evaluation and treatment for this pain. In regards to referral I feel that she should continue her injections through [facility] as she has had good benefit with this in the past. If she wishes to have this done through our office wewould need her to have her records from [facility] sent to our office. Referral did not list any request for medication recommendations. However. It is of note the patient is high risk for opioid abuse. She reports using alcohol although she has a history of alcoholism and knows at this is not advisable. Also reports using marijuana for sleep and for euphoria. Recommend avoiding opiate use other than were acutely clinically indicated. PLAN: Follow-up with [facility] as needed for repeat lumbar injections. If there are transportationissues or other reasons she cannot get to [facility] will need transfer records prior to be able to do any injections for this office. Refer to orthopedics for evaluation and treatment of scoliosis. Thank you for the opportunity to participate in Sahra Williamson's care. Thank you for this referral, Homer Merida MD [address] [place] [address]. Tessa Vázquez, MSN, CHEMICAL PROCESS OPERATOR- C, PRETZEL COOKER Nurse Practitioner [facility] [address] [phone] / [facility] documented in this encounter Plan of Treatment Scheduled Referrals Name Type Priority Associated Diagnoses Orde r Schedule Referral to Spine Center Outpatient Referral Routine Other form of scoliosis of thoracic spine Ordered: 07/19/2018 documented as of this encounter Visit Diagnoses Diagnosis Other form of scoliosis of thoracic spine Low back pain, non-specific documented in this encounter Care Teams Printing Plate Maker Relationship Specialty Start Date End Date Asya Hand MD [address] [place] [id number] PCP - General Oncology 06/11/16 08/09/19 documented as of this encounter
--- OUTSIDE RECORDS SUMMARY | 2024-04-13 11:20 | XMS_ITS | Encounter Summary ---
Author Organization [facility] Address [facility] [place] [address] Care Team Providers Care Foundry Finisher Name Role Phone Asya Hand MD Primary Care Provider [phone] Reason for Visit * Auth/Cert Specialty Diagnoses / Procedures Referred By Contac t Referred To Contact Diagnoses Unstable angina CHEST PAIN, ACS, ANGINA Referral ID Status Reason Start Date Expiration Date Visits Re quested Visits Authorized [id number] 1 1 Encounter Details Date Type Department Care Team (Latest Contact Info) Description 08/15/2017 12:05 AM EST - 08/15/2017 9:50 PM EST Hospital Encounter [place] [address] Pankaj Valerio MD [facility] [place] [address] Pain Discharge Disposition: Home Social History Tobacco Use Types Packs/Day Years [...] on file documented as of this encounter Medications at Time of Discharge Medication Sig Dispensed Refills Start Date End Date FLUoxetine (PROZAC) 20 mg Capsule Take 3 capsules by mouth daily. 90 capsule 08/17/2017 pregabalin (LYRICA) 50 mg Capsule Take 1 capsule by mouth 3 times daily as needed (for anxiety). 60 tablet 08/17/2017 aspirin 81 mg Tablet, Chewable Take 81 mg by mouth daily. 30 tablet 3 07/31/2017 meTOPROLOL succinate (TOPROL-XL) 50 mg Tablet Sustained Release 24 hr Take 1 tablet by mouth daily. 30 tablet 12 07/31/2017 nitroGLYcerin (NITROSTAT) 0.4 mg Tablet, Sublingual Place 1 tablet under the tongue every 5 minutes as needed for Chest pain. 90 tablet 12 07/30/2017 amLODIPine (NORVASC) 5 mg Tablet Take 1 tablet by mouth daily. 60 tablet 08/17/2017 12/15/2021 prazosin (MINIPRESS) 1 mg Capsule Take 1 capsule by mouth nightly. 60 capsule 08/17/2017 12/15/2021 pregabalin (LYRICA) 50 mg Capsule Take 1 capsule by mouth daily. 60 tablet 08/18/2017 08/17/2017 pregabalin (LYRICA) 50 mg Capsule Take 1 capsule by mouth 3 times daily. 60 tablet 08/17/2017 08/17/2017 atorvastatin (LIPITOR) 40 mg Tablet Take 1 tablet by mouth every evening. 90 tablet 3 07/31/2017 12/15/2021 clopidogrel (PLAVIX) 75 mg Tablet Take 1 tablet by mouth daily. 90 tablet 3 07/31/2017 12/15/2021 nicotine (NICODERM CQ) 7 mg/[address] 1 patch onto the skin daily. 28 patch 3 07/31/2017 12/15/2021 montelukast (SINGULAIR) 10 mg Tablet Take 10 mg by mouth nightly. 12/15/2021 FLUoxetine (PROZAC) 20 mg Capsule Take 40 mg by mouth daily. 08/17/2017 lamoTRIgine (LAMICTAL) 150 mg Tablet Take 150 mg by mouth daily. 12/15/2021 pregabalin (LYRICA) 75 mg Capsule Take 75 mg by mouth daily. 08/17/2017 verapamil (CALAN-SR) 180 mg Tablet Sustained Release Take 180 mg by mouth nightly. 08/17/2017 documented as of this encounter Plan of Treatment Not on file documented as of this encounter Procedures Procedure Name Priority Date/Time Associated Diagnosis Comments FILM LIBRARY STORAGE ONLY DX CHEST Routine 08/15/2017 12:05 AM EST Pain documented in this encounter Results * Film Library- Storage Only DX Chest (08/15/2017 12:05 AM EST) Narrative [facility] - 08/15/2017 7:12 PM EST This exam is for storage only and is auto-finalizing. Pankaj Valerio MD IMG FILM LIBRARY ORD ERABLES Performing Organization Address City/State/[facility] Co de Phone Number [place], [place] documented in this encounter Visit Diagnoses Diagnosis Pain Generalized pain documented in this encounter Care Teams Foundry Finisher Relationship Specialty Start Date End Date Asya Hand MD [address] [place] [address] PCP - General Oncology 06/11/16 08/09/19 documented as of this encounter
--- OUTSIDE RECORDS SUMMARY | 2024-04-13 11:20 | XMS_ITS | Encounter Summary ---
Author Organization [facility] Address [facility] [place] [address] Care Team Providers Care Rnfa Name Role Phone Asya Hand MD Primary Care Provider + [phone] Reason for Visit * Auth/Cert Specialty Diagnoses / Procedures Referred By Contac t Referred To Contact Diagnoses Unstable angina CHEST PAIN, ACS, ANGINA Referral ID Status Reason Start Date Expiration Date Visits Re quested Visits Authorized [id number] 1 1 Encounter Details Date Type Department Care Team (Late st Contact Info) Description 08/16/2017 2:05 PM EST - 08/16/2017 3:05 PM EST [place] [id number] Quiana Oconnor MD [facility] [place] [address] CARDIAC CATHETERIZATION Social History Tobacco Use Types Packs/Day Years [...] Sign Reading Time Taken Comments Blood Pressure 106/80 08/17/2017 11:34 AM EST Pulse 52 08/17/2017 11:34 AM EST Temperature 36.4 ??C (97.5 ??F) 08/17/2017 11:[address] Respiratory Rate 18 08/17/2017 11:34 AM EST Oxygen Saturation 95% 08/17/2017 11:34 AM EST Inhaled Oxygen Concentration - - Weight 78 kg (171 lb 15.3 oz) 08/17/2017 5:00 AM EST Height 170.2 cm (5' 7) 08/15/2017 9:00 PM EST Body Mass Index 26.93 08/15/2017 9:00 PM EST documented in this encounter Discharge Summaries * Felicity Petersonogh - 08/17/2017 8:03 AM EST Cardiology - Discharge Summary Patient Name: Sahra Williamson Patient Age: 52 y.o. Birthdate: 1965 Admit date: 08/15/2017 Discharge date and time: 08/17/2017 Attending Physician: Pankaj Valerio MD Follow-up Recommendations for Providers: - stopped verapamil on discharge - added amlodipine to help with coronary vasodilation - consider addition of imdur if continued angina and blood pressure can handle it - most chest pain c/w anxiety/panic attacks, please encourage counseling and psychiatric follow-up - was seen here by psych with some medication adjustments detailed below - transaminitis fluctuating here, some h/o alcohol use, medications not suspected but please recheck LFTs at the next PCP visit to monitor, fatty liver seen on prior imaging - prior UDS positive for meth, bup, and opiates with some h/o polysubstance abuse (opiates and BZD)and distant h/o cocaine use Discharge Diagnoses (Hospital Problems) and Secondary Diagnoses (Chronic Problems): Active Hospital Problems Diagnosis ??? Unstable angina Resolved Hospital Problems Diagnosis Date Resolved No resolved problems to display. Operations/Major Procedures: Cardiac Catheterization (full report pending) History of Presentation: Ms. Williamson is a 52 year old female who presents in transfer from [facility] with chest pain now transferred for unstable angina. ?? Of note, she was recently admitted at [facility] 07/29/17 - 07/30/17 for NSTEMI. During this admission, troponin peaked at 0.22 and she underwent catheterization and received 1 x MARY to the mid-RCA and 1 x MARY to mid-LAD. She was discharged on DAPT (ASA and clopidogrel) 07/30/17. ?? Ms. Williamson reports ongoing 4-5/10 less focal anterior chest pain, 80% of the time since discharge from [facility] earlier this month with pain in the back as well. The pain comes and goes with and without exertion. She's generally been feeling unwell since discharge with poor appetite and decreased energy. Two weeks ago she started having URI with productive cough. This past Tuesday she went to [facility] ED for pain in the RUQ as well as more generalized rib pain, which she attributed to her recent URI. She was treated with a steroid burst and tessalon perles, which she says have not helped. She endorses full medication compliance since discharge, including DAPT. ?? At noon today she was making her bed at home when she had sudden onset of 8/10 anterior chest pain located in the xiphoid region, that was like the pain 3 weeks ago. She took 1 x SL nitro at home without benefit and had a friend drive her to [facility] ED when the pain reached 10/10. The pain was associated with dyspnea, without nausea or diaphoresis. ?? At [facility], vitals BP 148/94, HR 84, RR 28, SpO2 99% on RA. ?? BMP: Gluc 96, BUN 20, Cr 0.8, Ca 8.9, Na 135, K 3.8, Cl 101, Bicarb 25 Hepatic panel: TP 7.7, Albumin 4.1, TB 1, Alk phos 174, ALT 145, AST 123 CBC: WBC 14.5 (77% neut, 6 bands, lymphs 5, mono 11), Hgb 17.2, Plt 205 Ddimer 0.51 (normal 0 - 0.5 mg/L) UDS: + opiates (after morphine given) Troponin: Neg x 1 CRP 0.31 (normal 0.1 - 0.3) ?? EKG at [facility] with non-specific T wave flattening in V2-V4 that improved on follow-up EKG. CTA negative for dissection. CXR negative for acute cardiopulmonary process. ?? OSH ED Course: NTG x 3 then nitro gtt (up to 30 mcg/min), morphine 4 mg then 2 mg IV, ketoralac 30 mg x 1, protonix 40 mg IV, ativan 1 mg PO and then 0.5 mg IV, GI cocktail (maalox and viscous lidocaine), heparin bolus and gtt, albuterol and budesonide. She did not receive full dose ASA at the OSH ED. Accepted in transfer for unstable angina. ?? On arrival to [facility], patient c/o 6/10 anterior chest pain, stable since 7 pm. Hospital Course: # Unstable Angina Ms. Williamson is a 52 year old female with recent NSTEMI s/p MARY to RCA and LAD who presents in transfer from [facility] with chest pain for management of unstable angina. Michelle score 85, lowrisk (Killip class 1). Troponins remained negative overnight and initial EKG showing minimal non-specific ST changes in the lateral leads have now resolved. Reports medication compliance and continued on ASA, plavix, statin. Placed on heparin drip. Continued to have chest pain about 6-7/10 on arrival and placed on nitro drip to 5/10 resolution, fairly comfortable at the time. Taken to cath for definitive rule out. Showed some slow refill in the LAD but no lesion to intervene upon, looking closely this was present on the initial cath about 1 month ago. Placed on amlodipine to help with angina and coronary dilation. Continued to have chest pain responsive to morphine only though deemed not cardiac due to negative trop, negative EKG, TTE wnl, and now second cath without lesion. ? # Transaminitis Fluctuating throughout stay. Some h/o alcohol use. Would f/u as an outpatient. No role of RU US atthe current time. Medications not suspected. Fatty liver seen on prior imaging. ? # H/o mood disorder # H/o chronic pain and polysubstance abuse Continued on fluoxetine and pregabalin. Chest pain ruled out as cardiac with definitive cath. PriorUDS on 07/30 admission was positive for meth, opiates, and bup. Discussion about her chest pain revealed this is very similar to panic attacks she usually has. Was given some ativan in the short term,not discharged on it due to polysubstance abuse and high potential for abuse. Psych consulted and recommended some medications changes. Patient did not endorse and IVDU at the time. UDS was not done on this admission. Important Studies and Lab Data: Recent Labs 08/17/17 0831 08/16/17 0421 08/15/172235 WBC 7.3 8.6 9.1 HGB 16.5* 15.2 15.1 PLATELET 161 167 162 Recent Labs 08/17/17 0831 08/15/172235 NA 138 137 K 3.6 4.4 CL 98 100 CO2 25 22 BUN 13 17 CREATININE 0.87 0.84 GLUCOSE 82 122 Recent Labs 08/17/17 0831 08/15/172235 CALCIUM 9.5 8.6 MAGNESIUM 0.74 0.84 Recent Labs 08/17/17 0831 08/16/17 1100 08/16/17420 CK 37 42 57 TROPONINT <0.01 <0.01 <0.01 Recent Labs 08/17/1731 08/15/172235 AST 100* 71* ALT 106* 87* ALKPHOS 151* 134* BILITOT 0.7 0.6 BILIDIR 0.2 0.2 Recent Labs 08/15/172235 INR 1.0 Lab Results Component Value Date CHLPL 163 07/30/2017 HDL 50 07/30/2017 CHOLHDL 3.3 07/30/2017 TRIG 91 07/30/2017 LDLCHOL 95 07/30/2017 No results for input(s): HA1C in the last 7068 hours. Studies: TTE: 1. The left ventricle is probably normal in size. There is normal global left ventricular systolic function. The quantitative left ventricular ejection fraction by biplane Spears's method is 72%. There are no left ventricular segmental wall motion abnormalities. 2. The right ventricle is mildly dilated. Right ventricular global systolic function is normal. The estimated pulmonary artery systolic pressure is 42 mmHg. The estimated right atrial pressure is 15 mmHg. 3. There is no hemodynamically significant valve disease. 4. See remainder of report for additional findings. Pending Studies and Lab Data: Cardiac Cath: final report pending - slow refill through the LAD without lesion - other vessels and stent patent Discharge to: home Discharge Medications: Your Medications New Medications Dose Details amLODIPine 5 mg Tab Commonly known as: NORVASC Take 1 tablet by mouth daily. 5 mg Quantity: 60 tablet Refills: 0 prazosin 1 mg Cap Commonly known as: MINIPRESS Take 1 capsule by mouth nightly. 1 mg Quantity: 60 capsule Refills: 0 Continued medications with new dosing Dose Details FLUoxetine 20 mg Cap Commonly known as: PROzac Take 3 capsules by mouth daily. What changed: how much to take 60 mg Quantity: 90 capsule Refills: 0 pregabalin 50 mg Cap Commonly known as: LYRICA Take 1 capsule by mouth 3 times daily as needed (for anxiety). What changed: - medication strength - how much to take - when to take this - reasons to take this 50 mg Quantity: 60 tablet Refills: 0 Continued medications, unchanged Dose Details aspirin 81 mg Chew Take 81 mg by mouth daily. 81 mg Quantity: 30 tablet Refills: 3 atorvastatin 40 mg Tab Commonly known as: LIPITOR Take 1 tablet by mouth every evening. 40 mg Quantity: 90 tablet Refills: 3 clopidogrel 75 mg Tab Commonly known as: PLAVIX Take 1 tablet by mouth daily. 75 mg Quantity: 90 tablet Refills: 3 lamoTRIgine 150 mg Tab Commonly known as: LaMICtal Take 150 mg by mouth daily. 150 mg Refills: 0 meTOPROLOL succinate 50 mg Tablet sr Commonly known as: TOPROL-XL Take 1 tablet by mouth daily. 50 mg Quantity: 30 tablet Refills: 12 montelukast 10 mg Tab Commonly known as: SINGULAIR Take 10 mg by mouth nightly. 10 mg Refills: 0 nicotine 7 mg/24 hr Pt24 Commonly known as: NICODERM CQ Place 1 patch onto the skin daily. 1 patch Quantity: 28 patch Refills: 3 nitroGLYcerin 0.4 mg Subl Commonly known as: NITROSTAT Place 1 tablet under the tongue every 5 minutes as needed for Chest pain. 0.4 mg Quantity: 90 tablet Refills: 12 STOPPED Medications verapamil 180 mg Tbsr Commonly known as: CALAN-SR Updated Allergies/ADRs: Allergies Allergen Reactions ??? Imitrex [Sumatriptan Succinate] ??? Alprazolam ??? Amoxicillin Unknown pt unsure ??? Ampicillin Itching ??? Azithromycin Itching ??? Codeine Phosphate Itching ??? Sulfa (Sulfonamide Antibiotics) Itching Edema Patient Instructions Instructions on Discharge to Home Why you were hospitalized - You were having continued chest pain after your cardiac cath at the beginning of the month. You lab results did not show a heart attack. You were taken back to the seed analysis laboratory assistant to investigate your coronary anatomy, where they found that one of your vessels fills a little slower than usual, which is non-specific and difficult to interpret. No other intervention was done andno new stents were placed. You were treated medically to help prevent angina. Call your doctor or seek medical attention if you develop the following - chest pain, shortness of breath, fever, cough, weakness in an arm or leg, nausea, vomiting, sweating, weight loss or gain, swelling in the feet or hands Diet - no change in previous diet Driving - as before hospitalization Shower/Bath - permitted Wound Care - none Home Oxygen therapy - none Changes in Your Medications: STOP: verapamil 1. Amlodipine 5mg once daily, a calcium channel jaswinder, to help keep your coronary vessels open and control your blood pressure 2. For your Anxiety: - Decrease PreGabalin to 50mg daily - Increase Fluoxetine to 60mg daily - Prazosin 1mg at night to help with nightmares Your Inpatient Doctor: Pankaj Valerio MD Follow-up: ?? Your Crime Lab Technician office was contacted and will contact you for a follow-up appointment in the next1 month. This will be with Dr. Chang. If you do not hear from them in the next week, please contact their office at [phone]. Your PCP office was closed due to the holidays. A voicemail was left to ask them to contact you logan appointment in the next 7-10 days. This will be with Asya Hand MD or one of her partners. Please contact them if you do not hear from the office by 08/22/2017 at [phone]. ?? Your Primary Care Provider: Asya Hand MD [phone] For questions regarding this document or issues relating to this hospitalization on the Medical Service, please contact your inpatient physician through the [facility] Mer[facility] . Issues afterhours and on weekends will be handled by the Hospitalist staff on-call. For questions regarding this document or issues relating to this hospitalization on the Medical Service, please contact your inpatient physician through the [facility] . Issues afterhours and on weekends will be handled by the Crime Lab Technician staff on-call. Signed: Gabriel Peterson MD documented in this encounter Discharge Instructions * Discharge Instructions* Roberto Ramos, NAIL SETTER - 08/17/2017 2:08 PM EST PSYCHIATRY Therapy Resources 1) Go to [email or web address] and click on Find a Therapist - You can find a therapist by selecting different filters that fit your need (geographic location, insurance, type of therapy, etc) 2) Community mental health in your county: - [facility] - [facility] and [facility] 3) Contact your insurance company for a list of providers that are covered under your network Additional Resources 1) Insight Timer - Free radha on smartphones for mediation/music/etc Medication During this admission changes were made with your psychiatric medications 1) Fluoxetine (Prozac) was increased to 60m/day 2) Added Prazosin 1mg to take by mouth every night for PTSD symptoms 3) Added Lyrica 50mg to take by mouth three times a day as needed for anxiety Please follow-up with your primary care provider In case of emergency, please go to your closest Emergency Department or call 911. Alternatively, ifin acute crisis or are feeling unsafe, you can call the [facility] crisis number at [phone]. You may also contact the [facility] crisis line at [phone] if you reside locally in [place]. You may contact [facility] crisis line at [phone] if you live locally in [place]. National Suicide Prevention Lifeline: Crisis Text Line: If you are feeling in acute crisis text CONNECT to 941571 Substance Use Treatment and Relapse Prevention Resources 211 and Safe Station: Your Connection to Recovery You can dial 2-1-1 from anywhere in [place] and be connected to a recovery agent who will help you connect to the appropriate substance use treatment. You can also go to any one of the fire stations in [place] and [facility], now designated as ???Safe Stations?? , a place where you can walk in, from anywhere in [place] 18/04, and get connectedwith substance use treatment services. [facility] Safe Stations Central Fire Station: [address] --- Station 2: [address] Station 3: [address] --- Station 4: [address] Station 5: [address] --- Station 6: [address] Station 7: [address]--- Station 8: [address] Station 9: [address]--- Station 10: [address] [facility] Safe Stations Station 1: [address] --- Station 2: [address] --- Station 3: [address] Station 4: [address] --- Station 5: [address] -- Station 6: [address] Station 7: [address] Additional Resources http://tntreatment.org/ http://www.[place].gov/sites/default/files/documents//adap_treatmen t_recovery_directory.pdf http://health[place].gov/alcohol-drugs http://www.Hangar Seventoday.com/ http://www.Dead Inventory Management Systemlltogether.org/wp-content/uploads//ConsumersGuideforSubstan bhQcfPetbwaimhlbQfuidZmysao2142.pdf Opiate Overdose Prevention www.prescribetoprevent.org * Patient Instructions* Gabriel Peterson - 08/17/2017 8:00 AM EST Instructions on Discharge to Home Why you were hospitalized - You were having continued chest pain after your cardiac cath at the beginning of the month. You lab results did not show a heart attack. You were taken back to the seed analysis laboratory assistant to investigate your coronary anatomy, where they found that one of your vessels fills a little slower than usual, which is non-specific and difficult to interpret. No other intervention was done andno new stents were placed. You were treated medically to help prevent angina. Call your doctor or seek medical attention if you develop the following - chest pain, shortness of breath, fever, cough, weakness in an arm or leg, nausea, vomiting, sweating, weight loss or gain, swelling in the feet or hands Diet - no change in previous diet Driving - as before hospitalization Shower/Bath - permitted Wound Care - none Home Oxygen therapy - none Changes in Your Medications: STOP: verapamil 1. Amlodipine 5mg once daily, a calcium channel jaswinder, to help keep your coronary vessels open and control your blood pressure 2. For your Anxiety: - Take PreGabalin 50mg up to three times daily as needed for anxiety - Increase Fluoxetine to 60mg daily - Prazosin 1mg at night to help with nightmares Your Inpatient Doctor: Pankaj Valerio MD Follow-up: ?? Your Crime Lab Technician office was contacted and will contact you for a follow-up appointment in the next1 month. This will be with Dr. Chang. If you do not hear from them in the next week, please contact their office at [phone]. Your PCP office was closed due to the holidays. A voicemail was left to ask them to contact you logan appointment in the next 7-10 days. This will be with Asya Hand MD or one of her partners. Please contact them if you do not hear from the office by 08/22/2017 at [phone]. ?? Your Primary Care Provider: Asya Hand MD [phone] For questions regarding this document or issues relating to this hospitalization on the Medical Service, please contact your inpatient physician through the [facility] Mer[facility] . Issues afterhours and on weekends will be handled by the Hospitalist staff on-call. * Attachments The following attachments cannot be sent through Care Everywhere. * PCI (PERCUTANEOUS CORONARY INTERVENTION): POST-OP (NIGERIAN) documented in this encounter Medications at Time of Discharge [...] by mouth nightly. 60 capsule 08/17/2017 12/15/2021 atorvastatin (LIPITOR) 40 mg Tablet Take 1 [...] Take 10 mg by mouth nightly. 12/15/2021 lamoTRIgine (LAMICTAL) 150 mg Tablet Take 150 mg by mouth daily. 12/15/2021 documented as of this encounter Progress Notes * Sindhu Scott RN - 08/17/2017 5:05 PM EST Patient has been alert and oriented this shift. VSS. Right radial site CDI. C/O 8/10 chest pain in am, temporarily relieved with morphine. No reports of pain since taking ativan. Pt was happy to havepsych consult as well and feels the pain had a lot to do with stress. Has been ambulating independently on unit. Discharge order acknowledged. IV and telemetry d/cd. AVS printed and provided to patient. AVS and medications reviewed with patient. All questions answered. Pt discharged via walking to Main entrance with myself in stable condition. Friend is providing a ride home. Gabriel Graves - 08/17/2017 10:06 AM EST Inpatient Cardiology Progress Note Patient Name: Sahra Williamson Date of Admission: 08/15/2017 ( Hospital Day 2 days ) Service: S1 ID: Ms. Williamson is a 52 year old female with recent NSTEMI s/p MARY to RCA and LAD who presents in transfer from [facility] with chest pain for management of unstable angina. Active Problems: - Chest pain 24 hr events: - Continued to have 8/10 chest pain - give morphine 2mg IV x1, 4mg IV x2 - Troponins remained negative overnight - Noted that she feels very anxious and freaks out about having more pain, which she feels may bemaking it worse ROS: Denies SOB, palpitations, PND, Orthopnea, dizziness/LH, LE swelling or pain, n/v, abd pain. Meds: Continuous Infusions: ??? nitroGLYcerin 30 mcg/min (08/16/17 0045) Scheduled Meds: ??? ondansetron ??? alum-mag hydroxide-simeth 10 mL Oral Once ??? meTOPROLOL 12.5 mg Oral Q6H VIANEY ??? amLODIPine 5 mg Oral Daily ??? aspirin 81 mg Oral Daily ??? atorvastatin 40 mg Oral QPM ??? clopidogrel 75 mg Oral Daily ??? FLUoxetine 40 mg Oral Daily ??? lamoTRIgine 150 mg Oral Daily ??? pregabalin 75 mg Oral Daily ??? sodium chloride 0.9 % 5 mL Intravenous BID ??? nicotine 14 mg Transdermal Daily And ??? Patch Verification 1 patch Transdermal BID And ??? nicotine 1 patch Transdermal Daily ??? montelukast 10 mg Oral Nightly ??? melatonin 6 mg Oral Nightly PRN Meds:.sodium chloride 0.9 %, lidocaine, nitroGLYcerin, ipratropium-albuterol Physical Exam: Last value Range last 24 hrs Temperature Temp: 36.7 ??C (98.1 ??F) Temp: [36.5 ??C (97.7 ??F)-36.8 ??C (98.2 ??F)] Heart Rate Heart Rate: 59 Heart Rate: [44-59] Blood Pressure BP: 122/73 BP: (113-159)/(72-95) Respiratory Rate Resp: 22 Resp: [12-22] SpO2 SpO2: 96 % SpO2: [91 %-98 %] Intake/Output Summary (Last 24 hours) at 08/17/17 1006 Last data filed at 08/17/17 0800 Gross per 24 hour Intake 910 ml Output 3550 ml Net -2640 ml cumulative I/O's since admission: Patient Vitals for the past 168 hrs: Weight 08/17/17 0500 78 kg (171 lb 15.3 oz) 08/16/17 0602 79.5 kg (175 lb 4.3 oz) 08/15/17 2100 79.8 kg (175 lb 14.8 oz) Admit wt: 79.8 kg Gen: in bed in NAD; alert, oriented, interactive HEENT: MMM CV: RRR, S1S2, no m/r/g, no JVP elevation Resp: CTAB, good inspiratory effort Abd: nondistended, soft, NT, +BS Ext: WWP, 2+ DP pulses, edema Neuro: grossly intact Labs Recent Labs 08/17/17 0831 08/16/1742008/15/172235 WBC 7.3 8.6 9.1 HGB 16.5* 15.2 15.1 HCT 48.3* 45.1 44.9 PLATELET 161 167 162 Recent Labs 08/17/17 0831 08/15/172235 NA 138 137 K 3.6 4.4 CL 98 100 CO2 25 22 BUN 13 17 CREATININE 0.87 0.84 Recent Labs 08/15/172235 AST 71* ALT 87* ALKPHOS 134* BILITOT 0.6 BILIDIR 0.2 Recent Labs 08/17/17 0831 08/15/172235 CALCIUM 9.5 8.6 MAGNESIUM 0.74 0.84 Recent Labs 08/16/17 1233 08/16/171 08/15/172235 INR -- -- 1.0 PT -- -- 13.0 PTT 116* 151* 90* Recent Labs 08/17/17 0831 08/16/17 1100 08/16/17420 CK 37 42 57 TROPONINT <0.01 <0.01 <0.01 No results for input(s): POCGLU in the last 168 hours. Imaging/Studies: Cardiac Catheterization 08/16/17 - patent vasculature, slow flow through LAD; official report pending TTE 08/16/17 1. The left ventricle is probably normal in size. There is normal global left ventricular systolic function. The quantitative left ventricular ejection fraction by biplane Spears's method is 72%. There are no left ventricular segmental wall motion abnormalities. 2. The right ventricle is mildly dilated. Right ventricular global systolic function is normal. The estimated pulmonary artery systolic pressure is 42 mmHg. The estimated right atrial pressure is 15 mmHg. 3. There is no hemodynamically significant valve disease. 4. See remainder of report for additional findings. ASSESSMENT: Ms. Williamson is a 52 year old female with recent NSTEMI s/p MARY to RCA and LAD who presents in transfer from [facility] with chest pain for management of unstable angina. Troponins remained negative overnight and initial EKG changes have now resolved. However, she continues to have chest pain. Cath on 08/16 was only significant for slow flow through the LAD - which would not n ecessarily explain her symptoms. However, she does note that she feels anxious during her episodes of chest pain. Moreover, she has a history of opioid use in the past and has been given multiple doses of morphineover the past two days for her pain. On chart review, she has had chronic pain on opioids in the past and has also had positive urine drug screens (as recently as 07/29). Will consult Psych for additional guidance on managing her pain and anxiety in the setting of opioid history. PLAN: # Chest Pain, - Cardiac cath without new culprit lesions - suspect pain may be related to GI causes vs. anxiety - Maalox and BMX today - 1mg IV Lorazepam x1 today - 0.5mg PO lorazepam q6h prn anxiety - will reassess based on Psych recommendations # s/p MARY x2 to LAD and RCA on 07/29 - ASA 81, Plavix 75mg - Atorvastatin - Metoprolol tartrate 12.5 mg q6h (instead of home Toprol XL 50 mg daily) - Cardiac enzymes within normal limits - Continue nitro gtt for chest pain - Cath today ?? # Recent URI - No cough or wheezing on exam - Duoneb prn - c/w Montelukast ?? # Transaminitis - Down-trending - RUQ pain now gone - Denies tylenol and EtOH overuse - Consider RUQUS if pain returns or transaminitis increases ?? # h/o migraine - Hold Verapamil - c/w Lamictal ?? # h/o mood disorder # H/o chronic pain - c/w Fluoxetine - c/w Pregabalin ?? # h/o tobacco use - Nicotine patch ?? # Other DVT- Enoxaparin 40mg qhs GI- None indicated ?? Code Status: FULL CODE ?? Dispo- Pending course Gabriel Peterson MD, PGY-1 Cardiology S1 (Pager [phone]) Associated attestation - Pankaj Valerio MD - 08/17/2017 2:19 PM EST Images from the original note were not included. Cardiology Staff Day of Discharge Note This patient was seen today with the team and was personally interviewed and examined. Agree with documentation by Dr. Peterson. Summary of Clinical History and Overnight Events: She has done generally well overnight although this morning was again experiencing severe chest pain which ultimately she decided was related to severe anxiety and which is improved with IV Lorazepam. Heart catheterization yesterday showed patent stents but an unexplained slow flow through her LAD. As result of this, she was started on a calcium channel jaswinder. In view of her cath findings, we recommend keeping her on a calcium channel jaswinder. She was seen formally by psychiatry who left recommendations regarding her stress and anxiety. She felt comfortable for discharge today. Discharge Planning: As this was expected to be the day of discharge, we used this daily visit as anopportunity to review: ?? Events of hospitalization ?? Discharge medications ?? Post-discharge activity including any appropriate restrictions ?? Follow-up After the above, I answered all questions. Summary of Plan: 1. Discharge today 2. Disposition: home 3. Medication changes: Documented in formal discharge summary 4. Planned follow-up: Detailed in discharge summary. 5. Other recommendations: Outpatient cardiology follow-up in 1 month Pankaj Valerio MD, FA, [facility] * Jennifer Stantonkamlesh Bartlett - 08/16/2017 11:18 PM EST Post-Catheterization Progress Note Subjective: Patient denies, palpitations, dyspnea, light-headedness, groin pain, or back pain. Has baseline diffuse 2/10 chest pain. Objective: Vitals: BP 116/72 (BP Location (NBP): Left arm) Pulse 56 Temp 36.8 ??C (98.2 ??F) (Oral) Resp 16 Ht170.2 cm (5' 7) Wt 79.5 kg (175 lb 4.3 oz) SpO2 97% BMI 27.45 kg/m2 Gen: NAD, sleeping upon entering room. Groin: R radial access site without hematoma. No active bleeding. Dressing c/d/i. No tenderness to palpation. Ext: LE warm with 2+ DP pulses. Sensation intact in UE bilaterally. Neuro: AOx3, CN II - XII intact, strength and sensation intact in the UE and LE b/l A/P: Sahra Williamson is a 52 y.o. female s/p cardiac catheterization with benign appearing R radial access site. Stephanie Stanton DO PGY 2 - Internal Medicine 08/16/2017 * Felicity Petersonogh - 08/16/2017 7:07 AM EST Inpatient Cardiology Progress Note Patient Name: Sahra Williamson Date of Admission: 08/15/2017 ( Hospital Day 1 day ) Service: S1 ID: Ms. Williamson is a 52 year old female with recent NSTEMI s/p MARY to RCA and LAD who presents in transfer from [facility] with chest pain for management of unstable angina. Active Problems: - Chest pain 24 hr events: - No acute events overnight - Continued to have 5/10 chest pain - give morphine 2mg IV x1, 4mg IV x2 - Troponins remained negative overnight ROS: Denies SOB, palpitations, PND, Orthopnea, dizziness/LH, LE swelling or pain, n/v, abd pain. Meds: Continuous Infusions: ??? heparin (porcine) 700 Units/hr (08/16/17 0607) ??? nitroGLYcerin 30 mcg/min (08/16/175) Scheduled Meds: ??? meTOPROLOL 12.5 mg Oral Q6H VIANEY ??? aspirin 81 mg Oral Daily ??? atorvastatin 40 mg Oral QPM ??? clopidogrel 75 mg Oral Daily ??? FLUoxetine 40 mg Oral Daily ??? lamoTRIgine 150 mg Oral Daily ??? pregabalin 75 mg Oral Daily ??? sodium chloride 0.9 % 5 mL Intravenous BID ??? nicotine 14 mg Transdermal Daily And ??? Patch Verification 1 patch Transdermal BID And ??? nicotine 1 patch Transdermal Daily ??? montelukast 10 mg Oral Nightly ??? melatonin 6 mg Oral Nightly PRN Meds:.heparin (porcine) AND heparin (porcine), sodium chloride 0.9 %, lidocaine, nitroGLYcerin, ipratropium-albuterol Physical Exam: Last value Range last 24 hrs Temperature Temp: 36.7 ??C (98.1 ??F) Temp: [36.4 ??C (97.5 ??F)-36.7 ??C (98.1 ??F)] Heart Rate Heart Rate: 52 Heart Rate: [51-55] Blood Pressure BP: 112/65 BP: (112-122)/(61-78) Respiratory Rate Resp: 16 Resp: [16-20] SpO2 SpO2: 93 % SpO2: [92 %-95 %] Intake/Output Summary (Last 24 hours) at 08/16/17 0707 Last data filed at 08/16/17 0200 Gross per 24 hour Intake 300 ml Output 0 ml Net 300 ml cumulative I/O's since admission: Patient Vitals for the past 168 hrs: Weight 08/16/17 0602 79.5 kg (175 lb 4.3 oz) 08/15/17 2100 79.8 kg (175 lb 14.8 oz) Admit wt: 79.8 kg Gen: in bed in NAD; alert, oriented, interactive HEENT: MMM CV: RRR, S1S2, no m/r/g, no JVP elevation Resp: CTAB, good inspiratory effort Abd: nondistended, soft, NT, +BS Ext: WWP, 2+ DP pulses, edema Neuro: grossly intact Labs Recent Labs 08/16/17 0421 08/15/172235 WBC 8.6 9.1 HGB 15.2 15.1 HCT 45.1 44.9 PLATELET 167 162 Recent Labs 08/15/172235 NA 137 K 4.4 CL 100 CO2 22 BUN 17 CREATININE 0.84 Recent Labs 08/15/17 2236 AST 71* ALT 87* ALKPHOS 134* BILITOT 0.6 BILIDIR 0.2 Recent Labs 08/15/17 2236 CALCIUM 8.6 MAGNESIUM 0.84 Recent Labs 08/16/17 0421 08/15/176 INR -- 1.0 PT -- 13.0 PTT 151* 90* Recent Labs 08/16/17 0421 08/15/176 CK 57 69 TROPONINT <0.01 <0.01 No results for input(s): POCGLU in the last 168 hours. Imaging/Studies: TTE 08/16/17 1. The left ventricle is probably normal in size. There is normal global left ventricular systolic function. The quantitative left ventricular ejection fraction by biplane Spears's method is 72%. There are no left ventricular segmental wall motion abnormalities. 2. The right ventricle is mildly dilated. Right ventricular global systolic function is normal. The estimated pulmonary artery systolic pressure is 42 mmHg. The estimated right atrial pressure is 15 mmHg. 3. There is no hemodynamically significant valve disease. 4. See remainder of report for additional findings. ASSESSMENT: Ms. Williamson is a 52 year old female with recent NSTEMI s/p MARY to RCA and LAD who presents in transfer from [facility] with chest pain for management of unstable angina. Troponins remained negative overnight and initial EKG changes have now resolved. However, she continues to have chest pain. Will plan for cath today to definitively rule out ischemia given her recent historyof stenting. ?? PLAN: # Unstable Angina - Michelle score 85, low risk (Killip class 1) - ASA 81, Plavix 75mg - Heparin gtt - Atorvastatin - Metoprolol tartrate 12.5 mg q6h (instead of home Toprol XL 50 mg daily) - Cardiac enzymes within normal limits - Continue nitro gtt for chest pain - Cath today ?? # Recent URI - No cough or wheezing on exam - Duoneb prn - c/w Montelukast ?? # Transaminitis - Down-trending - RUQ pain now gone - Denies tylenol and EtOH overuse - Consider RUQUS if pain returns or transaminitis increases ?? # h/o migraine - Hold Verapamil - c/w Lamictal ?? # h/o mood disorder # H/o chronic pain - c/w Fluoxetine - c/w Pregabalin ?? # h/o tobacco use - Nicotine patch ?? # Other DVT- Heparin gtt GI- None indicated ?? Code Status: FULL CODE ?? Dispo- Pending course Gabriel Peterson MD, PGY-1 Cardiology S1 (Pager [phone]) * Quiana Oconnor MD - 08/16/2017 12:26 AM EST Brief Fellow Note: Patient ID: Sahra Williamson is a 52 y.o. female with a history of HTN, HLD, polysubstance abuse and ASCVD s/p recent NSTEMI with PCI to the mid RCA and mid LAD on 07/29/17 and discharged on 07/30/17. Clinical Synopsis: She presents in transfer from [facility] for evaluation of chest pain. Please see my prior telephone note for details of the conversation with the referring hospital provider and the clinical decision making. On arrival here the patient was complaining of 6/10 chest pain, continuous since 11am this morning.She is a difficult historian but in summary, she reports she has had ongoing diffuse chest pain andepigastric pain of 4-5/10 severity since her cath on 07/30/17 (never resolved with catheterization),which she never divulged to her inpatient team at the time because she thought it was normal. This has continued with waxing and waning severity without clear exacerbating or alleviating factors for the last 2 weeks. Then earlier today she had worsening and change in the character of the pain (although she has trouble describing how the character changed) around 11am, reaching maximum intensityper her report of 8/10 severity. She presented to her local ED where initial evaluation including labs (including troponins x2), serial EKGs, CXR, CTA chest were all unrevealing. She was treated withNTG SL x3 and then a drip, a GI cocktail and pantoprazole, ketorolac all without any effect. She requested dilaudid and was administered morphine with modest effect. On arrival here she continued to complain of 6/10 chest/epigastric pain on a NTG gtt at 30mcg/min. She was given morphine with a brief reduction in her pain to 5/10 but with rapid worsening after about 20 minutes. I am unable to tell from her history whether her current pain is a continuum from the pain she has had for the past two weeks or not. Regardless, she insists that it is just like the pain she had during her heart attack. Her recent history is also notable for possible URI/COPD flare with cough for which she was treatedwith an unclear steroid regimen. She has continued to smoke. Exam: Most Recent Vitals: 08/15/17 2320 BP: 121/78 Pulse: 51 Resp: 20 Temp: 36.4 ??C (97.5 ??F) SpO2: 92% General: Middle aged female appearing comfortable in hospital bed, eating sandwich and using cell phone HEENT: hoarse voice CV: Mildly bradycardic with regular rhythm, no M/G/R Resp: Non-labored, CTAB Psych: Affect incongruous with reported symptoms Objective Data: Troponin negative x2 at referring hospital, troponin and CK negative.normal here x1 EKGs at referring hospital with transient, subtle TW flattening in V2-V4 and nonspecific ST segmentchanges (resolved on repeat EKGs there) First EKG here without ischemic changes I performed a bedside limited TTE (images uploaded into [facility]) at the time of the patient's arrival. Although the study was limited, most noe were visualized and found to have normal motion and thickening per my review. Global function was normal as well. Impression/Plan: 52 yo female patient with multiple risk factors and known ASCVD with recent intervention presentingwith ongoing atypical chest pain in the absence of objective signs of ischemia, including negative cardiac enzymes x3, no diagnostic EKG changes and normal limited TTE per my review. Although she has ongoing pain, it is not responsive at all to NTG and is atypical in character and I suspect not ischemic in nature. Given her recent PCI, we will treat as ACS with heparin and NTG drip for now and cycle enzymes and EKGs. I discussed the case briefly with the interventional attending Dr. Oconnor who agrees in the absence of any objective findings of ischemia at this time, despite continuous pain for>12 hours, activating the seed analysis laboratory assistant overnight for chest pain we do not believe is ischemic does not make sense at this time. If there is a change in her clinical condition or new suggestion of an ischemic pathology (new EKG changes, cardiac enzyme elevation), we will reconsider. documented in this encounter H&P Notes * Stephanie Stanton E - 08/15/2017 7:33 PM EST Cardiology Admission History and Physical Patient Name: Sahra Williamson Service: M1S1 Responsible Attending: Pankaj Valerio MD PCP: Asya Hand MD PCP phone #: [phone] ID/Chief Complaint: Chest pain / unstable angina History of Present Illness: Ms. Williamson is a 52 year old female who presents in transfer from [facility] with chest pain now transferred for unstable angina. Of note, she was recently admitted at [facility] [place]29/[place] - 07/30/17 for NSTEMI. During this admission, troponin peaked at 0.22 and she underwent catheterization and received 1 x MARY to the mid-RCA and 1 x MARY to mid-LAD. She was discharged on DAPT (ASA and clopidogrel) 07/30/17. Ms. Williamson reports ongoing 4-5/10 less focal anterior chest pain, 80% of the time since discharge from [facility] earlier this month with pain in the back as well. The pain comes and goes with and without exertion. She's generally been feeling unwell since discharge with poor appetite and decreased energy. Two weeks ago she started having URI with productive cough. This past Tuesday she went to [facility] ED for pain in the RUQ as well as more generalized rib pain, which she attributed to her recent URI. She was treated with a steroid burst and tessalon perles, which she says have not helped. She endorses full medication compliance since discharge, including DAPT. At noon today she was making her bed at home when she had sudden onset of 8/10 anterior chest pain located in the xiphoid region, that was like the pain 3 weeks ago. She took 1 x SL nitro at home without benefit and had a friend drive her to [facility] ED when the pain reached 10/10. The pain was associated with dyspnea, without nausea or diaphoresis. At [facility], vitals BP 148/94, HR 84, RR 28, SpO2 99% on RA. BMP: Gluc 96, BUN 20, Cr 0.8, Ca 8.9, Na 135, K 3.8, Cl 101, Bicarb 25 Hepatic panel: TP 7.7, Albumin 4.1, TB 1, Alk phos 174, ALT 145, AST 123 CBC: WBC 14.5 (77% neut, 6 bands, lymphs 5, mono 11), Hgb 17.2, Plt 205 Ddimer 0.51 (normal 0 - 0.5 mg/L) UDS: + opiates (after morphine given) Troponin: Neg x 1 CRP 0.31 (normal 0.1 - 0.3) EKG at [facility] with non-specific T wave flattening in V2-V4 that improved on follow-up EKG. CTA negative for dissection. CXR negative for acute cardiopulmonary process. OSH ED Course: NTG x 3 then nitro gtt (up to 30 mcg/min), morphine 4 mg then 2 mg IV, ketoralac 30 mg x 1, protonix 40 mg IV, ativan 1 mg PO and then 0.5 mg IV, GI cocktail (maalox and viscous lidocaine), heparin bolus and gtt, albuterol and budesonide. She did not receive full dose ASA at the OSH ED. Accepted in transfer for unstable angina. On arrival to [facility], patient c/o 03/05 anterior chest pain, stable since 7 pm. Review of Systems: GENERAL HEENT CV PULM All negative All negative All negative All negative x Weight loss (says she's lost 20 lbs since discharge, weight today similar to discharge) + Headache + Chest Pain Non-productive cough Weight gain Vision change + Palpitations + Productive cough - Fevers Sinus congestion - Orthopnea + Wheezing - Chills x Hoarseness - LE edema - Hemoptysis + Night sweats - Epistaxis + PND - Pleuritic pain + Fatigue - Syncope + SOB Claudication + [facility] All negative x All negative x All negative x All negative Arthralgias Frequency Heat intolerance Blood in stool Myalgias Urgency Cold intolerance Dysphagia + Weakness generalized Hematuria Polydipsia Odynophagia Stiffness Flank pain Polyphagia Abdominal discomfort Dysuria Cushingoid Constipation Foamy urine Diarrhea Discharge Nausea/Vomiting LYMPH SKIN NEURO PSYCH x All negative x All negative x All negative x All negative Swollen nodes Rash Seizures Depressed affect Tender nodes Ulcers Tremors Occupational stress Diffuse nodes Bruising Spasticity Anxiety Local nodes Tanned skin Focal weakness Insomnia Night sweats Telangiectasias Diplopia Paresthesias Dizziness Problem List/Past Medical History Patient Active Problem List Diagnosis ??? Coronary artery disease 02/05/2016 Coronary angiogram [place] [facility]: LAD mid 50%, OM1 long 40%, RCA mid 50%. ??? Unstable angina ??? NSTEMI (non-ST elevated myocardial infarction) ??? Positive urine drug screen for amphetamines, opiates, buprenorphine on admission ??? Tobacco use ??? Anxiety ??? Cerebrovascular accident (CVA) ??? Tobacco dependence syndrome ??? Headache, chronic daily ??? Hypertension ??? Hyperlipidemia ??? History of seizure ??? Current smoker 35+yrs ??? Depression ??? 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 Chest pain ??? Chronic pain ??? Migraine ??? Cervical spondylosis ??? PRES (posterior reversible encephalopathy syndrome) Meds: No current facility-administered medications on file prior to encounter. Current Outpatient Prescriptions on File Prior to Encounter Medication Sig Dispense Refill ??? aspirin 81 mg Tablet, Chewable Take 81 mg by mouth daily. 30 tablet 3 ??? atorvastatin (LIPITOR) 40 mg Tablet Take 1 tablet by mouth every evening. 90 tablet 3 ??? clopidogrel (PLAVIX) 75 mg Tablet Take 1 tablet by mouth daily. 90 tablet 3 ??? meTOPROLOL succinate (TOPROL-XL) 50 mg Tablet Sustained Release 24 hr Take 1 tablet by mouth daily. 30 tablet 12 ??? nicotine (NICODERM CQ) 7 mg/[address] 1 patch onto the skin daily. 28 patch 3 ??? nitroGLYcerin (NITROSTAT) 0.[address], [address] 1 tablet under the tongue every 5 minutes as needed for Chest pain. 90 tablet 12 ??? montelukast (SINGULAIR) 10 mg Tablet Take 10 mg by mouth nightly. ??? FLUoxetine (PROZAC) 20 mg Capsule Take 40 mg by mouth daily. ??? lamoTRIgine (LAMICTAL) 150 mg Tablet Take 150 mg by mouth daily. ??? pregabalin (LYRICA) 75 mg Capsule Take 75 mg by mouth daily. ??? verapamil (CALAN-SR) 180 mg Tablet Sustained Release Take 180 mg by mouth nightly. Allergies: Allergies Allergen Reactions ??? Imitrex [Sumatriptan Succinate] ??? Alprazolam ??? Amoxicillin Unknown pt unsure ??? Ampicillin Itching ??? Azithromycin Itching ??? Codeine Phosphate Itching ??? Sulfa (Sulfonamide Antibiotics) Itching Edema Family History: Mother: CVA at 67, fatal Father: ND in late 60s, non-fatal, living Siblings: no cardiac disease Social History: Tobacco: 8-10 cigarettes/day, 30 pack years EtOH: 2-3 glasses a wine or beer 3 times / week Illicits: Smokes marijuana couple times / month. Living Situation: Lives in [place], [place]. Lives alone in an apartment. Vocation: Helps to take care of grandkids. Disabled due to back and neck issues. 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 While assessing the patient's pain, she asked me for morphine and whether I was the kind of doctor to give ativan. HEENT: EOMI, PERRL, raspy voice Neck: Supple with normal ROM. No obvious LAD. Non elevated JVD Cardiac: Normal S1 and S2, Regular rate and rhythm; No murmrs/gallops/rubs. Respiratory: Nonlabored. Clear to auscultation bilaterally; No wheezes/ rhonci/ rales. Abd: + BS; soft, non-tender, non-distended, no obvious masses. Ext: WWP without le edema, cyanosis or clubbing. DPP 2+ bilaterally. Neuro: II-XII grossly intact. Alert and orientated, no-focal deficits Skin: No rashs, no lesions, no petechiae Lines: pIV Laboratory: CBC: ) Recent Labs 08/16/17 0421 08/15/17 2236 07/30/17 0620 WBC 8.6 9.1 7.7 HGB 15.2 15.1 16.4* PLATELET 167 162 180 Chemistry: Recent Labs 08/15/17223507/30/17 0620 07/29/17 1825 NA 137 138 139 K 4.4 4.3 4.6 CL 100 102 102 CO2 22 27 26 BUN 17 11 13 CREATININE 0.84 0.87 0.88 GLUCOSE 122 98 70 Recent Labs 08/15/17223507/30/17 0620 07/29/17 1825 CALCIUM 8.6 8.7 8.6 8.6 MAGNESIUM 0.84 -- 0.85 LFT's: Recent Labs 08/15/172235 BILITOT 0.6 BILIDIR 0.2 ALBUMIN 3.4 ALKPHOS 134* ALT 87* AST 71* Coags: Recent Labs 08/15/172235 PT 13.0 INR 1.0 PTT 90* Cardiac enzymes: Recent Labs 08/15/17223507/30/17 0620 07/29/17 2339 07/29/17 1825 TROPONINT <0.01 0.13* 0.22* 0.17* CK 69 162* 178* 193* PROBNP 216* -- -- 342* Endocrine: Recent Labs 08/15/17223507/29/17 1825 TSH 0.63 2.10 Microbiology: None Diagnostic Studies: EKG at OSH with non-specific T wave flattening in V2-V4 and non-specific ST changes in V5 that improved on follow-up EKG EKG on arrival: Unchanged TWI in leads III and aVF, no T wave flattening as previously reported at OSH, no ST depressions or elevations, HR 52 2nd EKG: Unchanged from prior CXR at OSH: No acute cardiopulmonary process CTA at OSH: Negative for dissection Most recent TTE (07/30/17) LVEF 62%, basal inferior and mid inferior hypokinesis. RV function wnl. PASP 31 mmHg. No hemodynamically significant valve disease. Cardiac Cath (07/29/17) Dominance: Right ? Left Main The left main was normal. ? Left Anterior Descending There was mild diffuse disease of the entire vessel segment of the left anterior descending artery (LAD) and it was calcified. The LAD was large. The mid segment of the LAD had a calcified single discrete 75% stenosis. ? Left Circumflex There was mild diffuse disease of the entire vessel segment of the left circumflex artery (LCX) and it was tortuous. The LCX was large. ? Systolic compression proximal OM2. ? Right Coronary Artery There was mild diffuse disease of the entire vessel segment of the right coronary artery (RCA). The RCA was large. The mid segment of the RCA had a single discrete 90% stenosis. There also was a 50% single discrete stenosis of the distal segment of the RCA. ASSESSMENT: Ms. Williamson is a 52 year old female with recent NSTEMI s/p MARY to RCA and LAD who presents in transfer from [facility] with chest pain for management of unstable angina. InitialT wave and ST changes now resolved in the absence of troponin leak. Bedside TTE by Fellow without obvious WMAs. Chest pain is still above baseline, will plan to treat medically tonight. PLAN: # Admit to Cardiology S1 service # Unstable Angina - Michelle score 85, low risk (Killip class 1) - ASA 324 mg given, then continue 81 mg daily - c/w Clopidogrel 75 mg daily - c/w Heparin gtt - c/w Atorvastatin - Metoprolol tartrate 12.5 mg q6h (instead of home Toprol XL 50 mg daily) - Trend cardiac enzymes - Serial ekg's - Nitro gtt and morphine for chest pain # Recent URI - No cough or wheezing on exam - Defer steroids overnight - Duoneb prn - c/w Montelukast # Transaminitis - Down-trending from earlier today at OSH - RUQ pain now gone - Denies tylenol and EtOH overuse - Consider RUQUS if pain returns or transaminitis increases # h/o migraine - Hold Verapamil - c/w Lamictal # h/o mood disorder # H/o chronic pain - c/w Fluoxetine - c/w Pregabalin # h/o tobacco use - Nicotine patch # Other PPx: DVT- Heparin gtt GI- None indicated Code Status: FULL CODE Dispo- Pending course Stephanie Stanton DO PGY 2 - Internal Medicine Pager [phone] Cardiology Associated attestation - Pankaj Valerio MD - 08/16/2017 5:30 PM EST Images from the original note were not included. Cardiology Staff Addendum: This patient was seen today and personally interviewed and examined. Agree with documentation by Dr. Stanton, which I have reviewed and independently confirmed. Briefly, I am assuming staff responsibility for this 52-year-old woman with known coronary artery disease who was admitted earlier in July with a non- STEMI and was treated with drug-eluting stents to high-grade lesions in both the RCA and LAD. She returns now with a few weeks of recurrent chest discomfort which is fairly constantly present although occasionally abates. It occurs with no particular pattern. She was evaluated at [facility] on Tuesday with some cough related pain. She was treated with steroids and Tessalon Perles. Yesterday she developed more acute 8/10 chest pain while making a bed. It was most prominent in her xiphoid area. She took nitro with no relief and arrived at her local emergency department with 10/10 pain. She was hemodynamically stable. Her workup was notable for elevated liver function tests, mildly elevated white count, and an elevated d-dimer. A CT angiogram was negative. 2 sets of troponin were negative. Chest x-ray was unremarkable. She was treated with a combination of sublingual followed by intravenous nitrates as well as morphine and ketorolac. Other interventions included Ativan and a GI cocktail. Her examination this morning is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 AUTOMATED Routine 08/16/20 4:21 AM EST CARDIAC ENZYMES ([facility] Routine 08/16/2017 4:21 AM EST APTT STAT 08/16/2017 4:21 AM EST CBC (WITH DIFF) Routine 08/16/2017 4:21 AM EST EKG 12-LEAD STAT 08/16/2017 1:04 AM EST ACS (acute coronary syndrome) HEMOGRAM Routine 08/15/2017 10:36 PM EST DIFFERENTIAL, AUTOMATED Routine 08/15/20 17 10:36 PM EST CARDIAC ENZYMES ([facility]/CGP) Routine 08/15/2017 10:36 PM EST APTT STAT 08/15/2017 10:36 PM EST PROTHROMBIN TIME Routine 08/15/2017 10:3 6 PM EST CBC (WITH DIFF) Routine 08/15/2017 10:36 PM EST TSH Routine 08/15/2017 10:36 PM EST PRO-BRAIN NATRIURETIC PEPTIDE Routine 08/15/2017 10:36 PM EST MAGNESIUM Routine 08/15/2017 10:36 PM EST HEPATIC FUNCTION PANEL Routine 7 10:36 PM EST BASIC METABOLIC PANEL (NON-FASTING) Routine 08/15/2017 10:36 PM EST EKG 12-LEAD STAT 08/15/2017 10:07 PM EST ACS (acute coronary syndrome) documented in this encounter Results * SCAN DOC: BOOK MENDER (08/18/2017 12:00 AM EST) Anatomical Region Laterality Modality Other Narrative 08/18/2017 12:00 AM EST Ordered by an unspecified provider. Scanning Provider MEDIA MGR SCAN EXT O RDR/RSLT * (ABNORMAL) Hepatic Function Panel (08/17/2017 8:31 AM EST) Total Protein 7.0 6.1 - 8.0 gm/dL [facility] Albumin 3.6 3.2 - 5.2 gm/dL [facility] AST 100(H) 0 - 30 unit/L [facility] ALT 106(H) 0 - 30 unit/L [facility] Alk Phos 151(H) 40 - 104 unit/L [facility] Total Bilirubin 0.7 0.2 - 1.3 mg/dL [facility] Bili, Direct 0.2 0.0 - 0.3 mg/dL [facility] Blood specimen (specimen) 08/17/2017 8:31 AM EST 08/17/2017 10:42 AM EST Narrative Resulting Agency Comment Spec In Lab Pankaj Valerio MD CHEMISTRY ORDERABLES Performing Organization Address City/State/[facility] Co de Phone Number [facility] [place] [address] * Differential, Automated (08/17/2017 8:31 AM EST) Neutrophils % 59.5 % [facility] Neutr Abs (ANC) 4.33 1.70 - 6.10 x10(3)/[facility] LAB[facility] Lymphocytes % 25.5 % [facility] Lymphocytes Abs 1.9 0.9 - 3.2 x10(3)/[facility] LABORATORY Monocytes % 11.0 % [facility] Monocyte Abs 0.8 0.3 - 0.9 x10(3)/[facility] LABORATORY Eosinophils % 3.2 % [facility] Eosinophils Abs 0.2 0.0 - 0.4 x10(3)/[facility] LABORATORY Basophils % 0.5 % [facility] Basophils Abs 0.0 0.0 - 0.1 x10(3)/[facility] LABORATORY Immature Gran % 0.30 % [facility] Comment: Immature granulocytes(IG's)percentage and absolute count will include metamyelocytes, myelocytes, and promyelocytes. Blood smears from CBCs yielding IG's will be scanned manually for concordance. If this scan disagrees with the automated IG or if promyelocytes are noted, a manual differential will be performed. Patsy Gran Abs 0.02 0.00 - 0.04 x10(3)/[facility] LAB[facility]ATORY Blood specimen (specimen) 08/17/2017 8:31 AM EST 08/17/2017 8:45 AM EST Narrative Resulting Agency Comment Spec In Lab Pankaj Valerio MD HEMATOLOGY ORDERABLE S Performing Organization Address City/State/[facility] Co de Phone Number [facility] [place] [address] * (ABNORMAL) Hemogram (08/17/2017 8:31 AM EST) WBC 7.3 4.0 - 9.5 x10(3)/[facility] LAB[facility]ATORY RBC 5.49(H) 4.00 - 5.21 x10(6)/[facility] Hemoglobin 16.5(H) 11.7 - 15.5 gm/dL [facility] Hematocrit 48.3(H) 35.7 - 45.8 % [facility] MCV 88.0 82.6 - 94.4 [facility]ORY MCH 30.1 27.1 - 32.0 pg [facility] MCHC 34.2 31.7 - 35.0 gm/dL [facility] Platelets 161 145 - 357 x10(3)/[facility] LABORATORY RDWSD 46.3(H) 37.0 - 46.0 [facility]ORY RDWCV 14.3(H) 11.5 - 14.1 % [facility] MPV 10.3 7.6 - 12.9 [facility] nRBC % Auto 0.0 % [facility] nRBC Abs Auto 0.000 0.000 - 0.000 x10(3)/[facility] Blood specimen (specimen) 08/17/2017 8:31 AM EST 08/17/2017 8:45 AM EST Narrative Resulting Agency Comment Spec In Lab Pankaj Valerio MD HEMATOLOGY ORDERABLE S Performing Organization Address City/[facility]/ZIP Co de Phone Number [facility] [place] [address] * Magnesium (08/17/2017 8:31 AM EST) Magnesium 0.74 0.69 - 1.07 mmol/L [facility] Blood specimen (specimen) 08/17/2017 8:31 AM EST 08/17/2017 8:45 AM EST Narrative Resulting Agency Comment Spec In Lab Pankaj Valerio MD CHEMISTRY ORDERABLES Performing Organization Address [facility] de Phone Number [facility] [place] [address] * Basic Metabolic Panel (non-fasting) (08/17/2017 8:31 AM EST) [facility] Glucose Lvl 82 65 - 199 mg/dL [facility] Comment:Diabetes: >=200 mg/d L plus symptoms BUN 13 8 - 18 mg/dL [facility] Creatinine 0.87 0.70 - 1.20 mg/dL [facility] Sodium 138 135 - 145 mmol/L [facility] Potassium 3.6 3.5 - 5.0 mmol/L [facility] Comment: Please note: ??Patients with WBC >100,000 may have falsely elevated Potassium levels. ??For accurate Potassium quantification in these patients send serum separator tube (gold top) for subsequent determinations. ??Contact the Clinical Chemistry Laboratory if there are any questions. Chloride 98 98 - 107 mmol/L [facility] CO2 25 22 - 31 mmol/L [facility] Anion Gap 15 5 - 15 mmol/L [facility] Calcium 9.5 8.5 - 10.5 mg/dL [facility] Comment:result rechecked-SV Estimated GFR >60 >=60 [facility] Comment: The reported eGFR should be multiplied by 1.2 for patients. The MDRD is not an appropriate measure of renal function for patients with body mass extremes or in patients with acute kidney failure. http://[employer] Apps/DHnkdep http://Funding Options/DHMCnkf Blood specimen (specimen) 08/17/2017 8:31 AM EST 08/17/2017 8:45 AM EST Narrative Resulting Agency Comment Spec In Lab Pankaj Valerio MD CHEMISTRY ORDERABLES [facility] [place] [address] * Cardiac Enzymes (LEB/CGP) (08/17/2017 8:31 AM EST) Troponin-T <0.01 0.00 - 0.00 ng/mL [facility] Comment: The 99th percentile for Troponin T is less than 0.01 ng/mL, any detectable cTnT concentration using this assay should be considered elevated. According to the third universal definition of myocardial infarction the following criteria with a clinical presentation consistent with acute myocardial ischemia meets the diagnosis for a myocardial infarction (ND). Detection of a rise and/or fall of cTnT, with at least one value greater than the 99th percentile (> or = 0.01) and with at least one of the following ?? Symptoms of ischemia ?? New or presumed new significant WG-zrkrrkf-X wave (ST-T) changes or new left bundle branch block (LBBB) ?? Development of pathologic Q waves in the ECG ?? Imaging evidence of new loss of viable myocardium or new regional wall motion abnormality ?? Identification of an intracoronary thrombus by angiography or autopsy Samples for cTnT testing should be obtained serially upon first assessment and again 3 to 6 hours later. If the clinical suspicion is high and previous samples have been negative an additional sample may be indicated. Reference: Third [place] Definition of Myocardial Infarction. Journal of the [place] [employer] 2012;60:1581-98 CK, Total 37 0 - 160 unit/L [facility] Blood specimen (specimen) 08/17/2017 8:31 AM EST 08/17/2017 8:45 AM EST Narrative Resulting Agency Comment Spec In Lab Pankaj Valerio MD CHEMISTRY ORDERABLES [facility] [place] [address] * EKG 12 Lead (08/17/2017 5:28 AM EST) Ventricular rate 66 BPM MUSE SYSTEM Atrial Rate 66 BPM MUSE SYSTEM P-R Interval 160 ms MUSE SYSTEM QRS Duration 78 ms MUSE SYSTEM Q-T Interval 414 ms MUSE SYSTEM QTC Calculated (Bezet) 434 ms MUSE SYSTEM Calculated P [place] 66 degrees MUSE SYSTEM Calculated R [place] 7 degrees MUSE SYSTEM Calculated T [place] 14 degrees MUSE SYSTEM INTERPRETATION Normal sinus rhythm RSR' or QR pattern in V1 suggests right ventricular conduction delay Borderline ECG When compared with ECG of 16-AUG-2017 05:29, No significant change was found Confirmed by MD Marquis Gregory A. ([id number]) on 08/17/2017 4:02:25 PM MUSE SYSTEM 08/17/2017 5:28 AM EST 08/17/2017 4:02 PM EST Pankaj Valerio MD ECG ORDERABLES MUSE SYSTEM * CARDIAC CATHETERIZATION (08/16/2017 2:47 PM EST) Anatomical Region Laterality Modality Other Narrative 08/25/2017 1:27 PM EST ?[facility] ? Cardiac Catheterization/Intervention Report ? Patient Name: Jordyn Sahra A. ? Procedure Date: 08/16/2017 ? A #: [id number] ? Primary Physician: Quiana Oconnor ? Case #: [id number] ? File Name: [id number] ? Catheterization Order Number: [id number] ? [facility] ? Final Report [place], [place] ? Patient Name: ? Sahra A. Williamson ? ID#: ?[id number] ? : ?1965 ? Procedure Date: ? August 16, 2017 ?Case #: ? [id number] ? Room: ? 6 ? Case Physician: ? Quiana Oconnor M.D. ? Start: ?14:20 ? Admission: ??08/12/2017 ? Referring ? Asya Hand M.D. ? Discharge: ??08/17/2017 ? Physicians: ?Manan Yancey M.D. ? Procedures: ?* Coronary Angiography ?* Left Heart Catheterization ? History ?Sahra Williamson is a 52 year old woman. She has hypertension and a family ?history of coronary artery disease. The patient has a history of smoking ?and is still smoking. She has untreated hypercholesterolemia. The patient ?has unstable angina, unknown troponin, a history of chest pain and a ?prior history of coronary artery disease. She is status post a remote ?myocardial infarction. The patient had a recent coronary intervention ?procedure. She has a remote cerebral vascular accident. The patient has a ?history of chronic obstructive pulmonary disease. She also has a history ?of an abnormal EKG. Prior to the initiation of this procedure, the ?patient was designated as ASA Class III. ? Patient Status at Catheterization: ?The patient presented with: unstable angina (w/i 60 days). [place] ?Cardiovascular Society angina class was IV. This patient was on beta ?blockers prior to the procedure. No stress or imaging studies were ?performed prior to this procedure. The status of the diagnostic procedure ?was Urgent. ? Technique: ?A 6 SLFr sheath was inserted in the right radial artery utilizing the ?Seldinger technique. The left coronary artery was injected utilizing a ?5Fr JL 3.5 catheter. A 5Fr JR 4 catheter was used to inject the right ?coronary artery. Left ventricular pressure was performed with a 5Fr JR 4 ?catheter. 2,000 units of heparin were administered. A total of 100cc of ?Omnipaque were opened, 30cc of Omnipaque were administered and 70cc of ?Omnipaque were wasted. Radiation: Fluoro time was 3.5 minutes, dose area ?product was 40,907 mGYcm2 and air kerma was 460 mGY. ?The patient received the following medications prior to and during the ?procedure: Aspirin (any), Clopidogrel and Unfractionated Heparin (any). ? Hemodynamics: ?Left Heart Pressures ? Resting: ? Syst Diast ? EDP ?a ?v ? m ?Ao 137 ?? 86 ?111 ?LV 124 ? 17 ? Coronary Angiography: ?Dominance: Right ?Left Main ? There was mild diffuse (<=25% stenosis) disease of the entire vessel ? segment of the left main artery. ??The left main was moderate in ? size. ?Left Anterior Descending ? There was mild diffuse (<=25% stenosis) disease of the entire vessel ? segment of the left anterior descending artery (LAD). ??The LAD was ? moderate in size. ??The previously placed stent is patent. Distal ? flow was decreased (TANIKA Grade 2). ? There was mild diffuse (<=25% stenosis) disease of the entire vessel ? segment of the first diagonal branch (Diagonal 1) of the LAD. ??The ? Diagonal 1 was moderate in size. ??Distal flow was decreased (TANIKA ? Grade 2). ?Left Circumflex ? There was mild diffuse (<=25% stenosis) disease of the entire vessel ? segment of the left circumflex artery (LCX). ??The LCX was moderate ? in size. ??Distal flow was decreased. ?Right Coronary Artery ? There was mild diffuse (<=25% stenosis) disease of the entire vessel ? segment of the right coronary artery (RCA). ??The RCA was moderate in ? size. ??The previously placed stent is patent. ? There was mild diffuse (<=25% stenosis) disease of the entire vessel ? segment of the right posterior descending branch (RPDA) of the RCA. ? The RPDA was moderate in size. ? Vascular Access: ?Vascular Access Management: ? Mechanical Compression of the right radial artery access site was ? performed. ? Conclusions: ?* Nonobstructive coronary artery disease ?* Slow Coronary Flow Phenomena. ? Complications/Events: ?The patient had no complications during these procedures. ? Comments: ?Pt presented with recurrent chest pain. ??She is s/p recent 2V PCI for ?NSTE-ACS. ??Coronary angiography today showed patent stents in the LAD and ?RCA. ??There is slow coronary flow in the LAD. ??LVEDP was normal. ?Recommend continued medical therapy for secondary prevention and strong ?recommendation for smoking cessation. ?The attending physician was present for the entire procedure. ?Dr. Quiana Oconnor M.D. was present during the moderate sedation intraservice ?time as documented by the sedation nurse. ??Case time = 00:21. ?Dr. Quiana Oconnor M.D. performed the coronary angiography and left heart ?catheterization. ? Quiana Oconnor M.D. ? Electronically Signed by: Quiana Oconnor M.D. ? Report Finalized: 08/25/2017 ??13:24 ? Report Last Ammended: 12/22/2017 ??11:15 ? Procedure Note Quiana Oconnor MD - 12/22/2017 [facility] Cardiac Catheterization/Intervention Report Patient Name: Sahra WilliamsonFloresita Procedure Date: 08/16/2017 A #: [id number] Primary Physician: Quiana Oconnor Case #: [id number] File Name: [id number] Catheterization Order Number: [id number] [facility] FinalReport [place], [place] Patient Name: Sahra Amesnn ID#:[id number] :1965 Procedure Date: August 16, 2017 Case #: [id number] Room: 6 Case Physician: Quiana Oconnor M.D. Start: 14:20 Admission:08/12/2017 Referring Asya Hand M.D. Discharge:08/17/2017 Physicians: Manan Yancey M.D. Procedures: * Coronary Angiography * Left Heart Catheterization History Sahra Williamson is a 52 year old woman. She has hypertension and afamily history of coronary artery disease. The patient has a history ofsmoking and is still smoking. She has untreated hypercholesterolemia. Thepatient has unstable angina, unknown troponin, a history of chest pain and a prior history of coronary artery disease. She is status post aremote myocardial infarction. The patient had a recent coronaryintervention procedure. She has a remote cerebral vascular accident. The patienthas a history of chronic obstructive pulmonary disease. She also has ahistory of an abnormal EKG. Prior to the initiation of this procedure, the patient was designated as ASA Class III. Patient Status at Catheterization: The patient presented with: unstable angina (w/i 60 days). [place] Cardiovascular Society angina class was IV. This patient was on beta blockers prior to the procedure. No stress or imaging studies were performed prior to this procedure. The status of the diagnosticprocedure was Urgent. Technique: A 6 SLFr sheath was inserted in the right radial artery utilizingthe Seldinger technique. The left coronary artery was injected utilizinga 5Fr JL 3.5 catheter. A 5Fr JR 4 catheter was used to inject theright coronary artery. Left ventricular pressure was performed with a 5FrJR 4 catheter. 2,000 units of heparin were administered. A total of 100ccof Omnipaque were opened, 30cc of Omnipaque were administered and 70ccof Omnipaque were wasted. Radiation: Fluoro time was 3.5 minutes, dosearea product was 40,907 mGYcm2 and air kerma was 460 mGY. The patient received the following medications prior to and duringthe procedure: Aspirin (any), Clopidogrel and Unfractionated Heparin(any). Hemodynamics: Left Heart Pressures Resting: Syst Diast EDP a v m Ao 137 86 111 LV 124 17 Coronary Angiography: Dominance: Right Left Main There was mild diffuse (<=25% stenosis) disease of the entirevessel segment of the left main artery. The left main was moderate in size. Left Anterior Descending There was mild diffuse (<=25% stenosis) disease of the entirevessel segment of the left anterior descending artery (LAD). The LADwas moderate in size. The previously placed stent is patent.Distal flow was decreased (TANIKA Grade 2). There was mild diffuse (<=25% stenosis) disease of the entirevessel segment of the first diagonal branch (Diagonal 1) of the LAD.The Diagonal 1 was moderate in size. Distal flow was decreased(TANIKA Grade 2). Left Circumflex There was mild diffuse (<=25% stenosis) disease of the entirevessel segment of the left circumflex artery (LCX). The LCX wasmoderate in size. Distal flow was decreased. Right Coronary Artery There was mild diffuse (<=25% stenosis) disease of the entirevessel segment of the right coronary artery (RCA). The RCA wasmoderate in size. The previously placed stent is patent. There was mild diffuse (<=25% stenosis) disease of the entirevessel segment of the right posterior descending branch (RPDA) of theRCA. The RPDA was moderate in size. Vascular Access: Vascular Access Management: Mechanical Compression of the right radial artery access sitewas performed. Conclusions: * Nonobstructive coronary artery disease * Slow Coronary Flow Phenomena. Complications/Events: The patient had no complications during these procedures. Comments: Pt presented with recurrent chest pain. She is s/p recent 2V PCIfor NSTE-ACS. Coronary angiography today showed patent stents in theLAD and RCA. There is slow coronary flow in the LAD. LVEDP was normal. Recommend continued medical therapy for secondary prevention andstrong recommendation for smoking cessation. The attending physician was present for the entire procedure. Dr. Quiana Oconnor M.D. was present during the moderate sedationintraservice time as documented by the sedation nurse. Case time = 00:21. Dr. Quiana Oconnor M.D. performed the coronary angiography and left heart catheterization. Quiana Oconnor M.D. Electronically Signed by: Quiana Oconnor M.D. Report Finalized: 08/25/2017 13:24 Report Last Ammended: 12/22/2017 11:15 Quiana Oconnor MD CARDIAC CATH ORDERAB LES * (ABNORMAL) APTT (08/16/2017 12:33 PM EST) Pathologist [facility] PTT 116(H) 25 - 35 sec [facility] Comment: The recommended therapeutic range for full dose, unfractionated heparin at [facility] is 80 ? 114 seconds. The use of the anti-Xa (heparin) level rather than the PTT is recommended for monitoring anticoagulation intensity in critically ill patients receiving unfractionated heparin by continuous IV infusion. Blood specimen (specimen) 08/16/2017 12:33 PM EST 08/16/2017 12:41 PM EST Narrative Resulting Agency Comment Spec In Lab Pankaj Valerio MD HEMATOLOGY ORDERABLE S [facility] [place] [id number] * Cardiac Enzymes (LEB/CGP) (08/16/2017 11:00 AM EST) [facility] Troponin-T <0.01 0.00 - 0.00 ng/mL [facility] Comment: The 99th percentile for Troponin T is less than 0.01 ng/mL, any detectable cTnT concentration using this assay should be considered elevated. According to the third universal definition of myocardial infarction the following criteria with a clinical presentation consistent with acute myocardial ischemia meets the diagnosis for a myocardial infarction (ND). Detection of a rise and/or fall of cTnT, with at least one value greater than the 99th percentile (> or = 0.01) and with at least one of the following ?? Symptoms of ischemia ?? New or presumed new significant UW-uvnpbll-A wave (ST-T) changes or new left bundle branch block (LBBB) ?? Development of pathologic Q waves in the ECG ?? Imaging evidence of new loss of viable myocardium or new regional wall motion abnormality ?? Identification of an intracoronary thrombus by angiography or autopsy Samples for cTnT testing should be obtained serially upon first assessment and again 3 to 6 hours later. If the clinical suspicion is high and previous samples have been negative an additional sample may be indicated. Reference: Third [place] Definition of Myocardial Infarction. Journal of the [place] [employer] 2012;60:1581-98 CK, Total 42 0 - 160 unit/L [facility] Blood specimen (specimen) 08/16/2017 11:00 AM EST 08/16/2017 11:18 AM EST Narrative Resulting Agency Comment Spec In Lab Pankaj Valerio MD CHEMISTRY ORDERABLES Performing Organization Address City/State/[facility] Co de Phone Number [facility] [place] [address] * ECHO LMTD W/O CONTRAST W LMTD SPEC DOPP COLOR DOPP (08/16/2017 7:40 AM EST) Anatomical Region Laterality Modality Other 08/16/2017 Narrative 08/16/2017 9:37 AM EST Procedure: ?Transthoracic Echocardiogram Patient: ?JORDYN WALLACE A ? (Age): 1965(52y) Med Rec#: ? [id number] ?Sex: ?F ? Site Loc: ? [facility] ?Ht / Wt: ??170(cm)/80(kg) Pt. Loc: ?Adult Floor ? BSA: ?1.92 Study Date: ?? 08/16/2017 ?Pt. Type: Inpatient Tape: ? Referring: Pankaj Valerio Reading: Sergo Marquis ([id number]) Offshoring Manager: Leandra Cloud Diagnosis: *ICD-10-PCS Acute ischemic heart disease, unspecified (I24.9) BP: ? 112/65 SUMMARY: 1. The left ventricle is probably normal in size. ??There is normal global left ventricular systolic function. ??The quantitative left ventricular ejection fraction by biplane Spears's method is 72%. ??There are no left ventricular segmental wall motion abnormalities. ?? 2. The right ventricle is mildly dilated. ??Right ventricular global systolic function is normal. ??The estimated pulmonary artery systolic pressure is 42 mmHg. ??The estimated right atrial pressure is 15 mmHg. 3. There is no hemodynamically significant valve disease. 4. See remainder of report for additional findings. Findings ? : Left Ventricle: ? The left ventricle is probably normal in size. ?There is normal global left ventricular systolic function. ?The quantitative left ventricular ejection fraction by biplane Spears's method is 72%. ?There are no left ventricular segmental wall motion abnormalities. ?Doppler assessment is consistent with normal left sided filling pressure. Right Ventricle: ? The right ventricle is mildly dilated. ?Right ventricular global systolic function is normal. ?The estimated pulmonary artery systolic pressure is 42 mmHg. ?The estimated right atrial pressure is 15 mmHg. Aortic Valve: ? The aortic valve is tricuspid. ?Systolic excursion of the aortic valve is normal. ?There is no evidence of aortic valve stenosis. ?There is no evidence of aortic regurgitation. Mitral Valve: ? The mitral valve leaflets appear normal. ?There is mild (1+/4+) mitral regurgitation present. Tricuspid Valve: ? The tricuspid valve leaflets are morphologically normal. ?There is mild (1+/4+) tricuspid regurgitation present. Pericardium: ? The pericardium appears normal and there is no evidence of a pericardial effusion. Venous: ? The inferior vena cava appears dilated. ?There is less than 50% respiratory change in the inferior vena cava dimension consistent with elevated right atrial pressure. Misc: ? There is no hemodynamically significant valve disease. ?See remainder of report for additional findings. ?Two-dimensional echo, limited spectral Doppler and color Doppler performed. Volumes/Mass ?Value ?Units (Range) ? LV ESV SP 4CH (MOD) 26.8 ? ml ? LV ESV SP 2CH (MOD) 27.4 ? ml ? LV EDV BP ? 95.6 ? ml ? LV ESV BP ? 27 ? ml ? LV EDV BP index ? 49.8 ? ml/m2 ? LV ESV BP index ? 14.1 ? ml/m2 ? BP EF (MOD) ? 72 ? % ? Diastolic/Systolic Function ?Value ?Units (Range) ? MV E-wave Vmax ?0.7 ?m/sec ? MV deceleration pdct332.7 ?msec ? MV A-wave Vmax ?0.5 ?m/sec ? MV E:A ratio ?1.5 ?ratio ? LV septal e' Vmax ?? 0.1 ?m/sec ? LV lateral e' Vmax ??0.1 ?m/sec ? LV average e' Vmax ??0.1 ?m/sec ? LV E:e' septal ratio12.1 ? ratio ? LV E:e' lateral rati9.1 ?ratio ? LV average E:e' rati10.4 ? ratio ? Tricuspid Valve ?Value ?Units (Range) ? TR Vmax ? 2.6 ?m/sec ? TR peak gradient ?27.2 ? mmHg ? RAP ? 15 ? mmHg ? RVSP ?42 ? mmHg ? Wall Motion: Segment Name ?Rest ? Base-Anteroseptal ?? Normal ? Base-Anterior ? Normal ? Base-Anterolateral ??Normal ? Base-Posterolateral Normal ? Base-Inferior ? Normal ? Base-Inferoseptal ?? Normal ? Mid-Anteroseptal ?Normal ? Mid-Anterior ?Normal ? Mid-Anterolateral ?? Normal ? Mid-Posterolateral ??Normal ? Mid-Inferior ?Normal ? Mid-Inferoseptal ?Normal ? [place]-Septal ? Normal ? [place]-Anterior ? Normal ? [place]-Lateral ?Normal ? [place]-Inferior ? Normal ? [place]-Tip ?Normal ? This report has been electronically signed by: Sergo Marquis MD ? 08/16/2017 09:36:46 Images reviewed and interpretation verified [facility] Procedure Note Sergo Marquis MD - 08/16/2017 Procedure: Transthoracic Echocardiogram Patient: JORDYN CERVANTES(Age): 1965(52y) Med Rec#: [id number] Sex: F [place] [facility] [place]t / Wt: 170(cm)/80(kg) Pt. Loc: Adult Floor BSA: 1.92 Study Date: 08/16/2017 Pt. Type: Inpatient Tape: Referring: Pankaj Valerio Reading: Sergo Marquis ([id number]) Offshoring Manager: Leandra Cloud Diagnosis: *ICD-10-PCS Acute ischemic heart disease, unspecified (I24.9) BP: 112/65 SUMMARY: 1. The left ventricle is probably normal in size. There is normal global left ventricular systolic function. The quantitative left ventricular ejection fraction by biplane Spears's method is 72%. There are no left ventricular segmental wall motion abnormalities. 2. The right ventricle is mildly dilated. Right ventricular global systolic function is normal. The estimated pulmonary artery systolic pressure is 42 mmHg. The estimated right atrial pressure is 15 mmHg. 3. There is no hemodynamically significant valve disease. 4. See remainder of report for additional findings. Findings : Left Ventricle: The left ventricle is probably normal in size. There is normal global left ventricular systolic function. The quantitative left ventricular ejection fraction by biplane Spears's method is 72%. There are no left ventricular segmental wall motion abnormalities. Doppler assessment is consistent with normal left sided filling pressure. Right Ventricle: The right ventricle is mildly dilated. Right ventricular global systolic function is normal. The estimated pulmonary artery systolic pressure is 42 mmHg. The estimated right atrial pressure is 15 mmHg. Aortic Valve: The aortic valve is tricuspid. Systolic excursion of the aortic valve is normal. There is no evidence of aortic valve stenosis. There is no evidence of aortic regurgitation. Mitral Valve: The mitral valve leaflets appear normal. There is mild (1+/4+) mitral regurgitation present. Tricuspid Valve: The tricuspid valve leaflets are morphologically normal. There is mild (1+/4+) tricuspid regurgitation present. Pericardium: The pericardium appears normal and there is no evidence of a pericardial effusion. Venous: The inferior vena cava appears dilated. There is less than 50% respiratory change in the inferior vena cava dimension consistent with elevated right atrial pressure. Misc: There is no hemodynamically significant valve disease. See remainder of report for additional findings. Two-dimensional echo, limited spectral Doppler and color Doppler performed. Volumes/Mass Value Units (Range) LV ESV SP 4CH (MOD) 26.8 ml LV ESV SP 2CH (MOD) 27.4 ml LV EDV BP 95.6 ml LV ESV BP 27 ml LV EDV BP index 49.8 ml/m2 LV ESV BP index 14.1 ml/m2 BP EF (MOD) 72 % Diastolic/Systolic Function Value Units (Range) MV E-wave Vmax 0.7 m/sec MV deceleration brhy323.7 msec MV A-wave Vmax 0.5 m/sec MV E:A ratio 1.5 ratio LV septal e' Vmax 0.1 m/sec LV lateral e' Vmax 0.1 m/sec LV average e' Vmax 0.1 m/sec LV E:e' septal ratio12.1 ratio LV E:e' lateral rati9.1 ratio LV average E:e' rati10.4 ratio Tricuspid Valve Value Units (Range) TR Vmax 2.6 m/sec TR peak gradient 27.2 mmHg RAP 15 mmHg RVSP 42 mmHg Wall Motion: Segment Name Rest Base-Anteroseptal Normal Base-Anterior Normal Base-Anterolateral Normal Base-Posterolateral Normal Base-Inferior Normal Base-Inferoseptal Normal Mid-Anteroseptal Normal Mid-Anterior Normal Mid-Anterolateral Normal Mid-Posterolateral Normal Mid-Inferior Normal Mid-Inferoseptal Normal [place]-Septal Normal [place]-Anterior Normal [place]-Lateral Normal [place]-Inferior Normal [place]-Tip Normal This report has been electronically signed by: Sergo Marquis MD 08/16/2017 09:36:46 Images reviewed and interpretation verified [facility] Pankaj Valerio MD ECHO ORDERABLES * EKG 12 Lead (08/16/2017 5:29 AM EST) Ventricular rate 53 BPM MUSE SYSTEM Atrial Rate 53 BPM MUSE SYSTEM P-R Interval 166 ms MUSE SYSTEM QRS Duration 88 ms MUSE SYSTEM Q-T Interval 468 ms MUSE SYSTEM QTC Calculated (Bezet) 439 ms MUSE SYSTEM Calculated P [place] 44 degrees MUSE SYSTEM Calculated R [place] 7 degrees MUSE SYSTEM Calculated T [place] -6 degrees MUSE SYSTEM INTERPRETATION Sinus bradycardia Otherwise normal ECG When compared with ECG of 16-AUG-2017 01:04, (unconfirmed) No significant change was found Confirmed by MD MCKEON ALAN ([id number]) on 08/16/2017 9:40:03 AM MUSE SYSTEM 08/16/2017 5:29 AM EST 08/16/2017 9:40 AM EST Pankaj Valerio MD ECG ORDERABLES Performing Organization Address [facility] de Phone Number MUSE SYSTEM * (ABNORMAL) APTT (08/16/2017 4:21 AM EST) Pathologist [facility] PTT 151(Criti jewels) 25 - 35 sec [facility] Comment: Called by: RED, Read back by: JOSELO WEN, Date/Time:08/16/17 04:47. The recommended therapeutic range for full dose, unfractionated heparin at [facility] is 80 ? 114 seconds. The use of the anti-Xa (heparin) level rather than the PTT is recommended for monitoring anticoagulation intensity in critically ill patients receiving unfractionated heparin by continuous IV infusion. Blood specimen (specimen) 08/16/2017 4:21 AM EST 08/16/2017 4:29 AM EST Narrative Resulting Agency Comment Spec In Lab Pankaj Valerio MD HEMATOLOGY ORDERABLE S Performing Organization Address [facility]/ZIP Co de Phone Number [facility] [place] [address] * (ABNORMAL) Differential, Automated (08/16/2017 4:21 AM EST) Neutrophils % 80.8 % [facility] Neutr Abs (ANC) 6.93(H) 1.70 - 6.10 x10(3)/mc L [facility] Lymphocytes % 10.6 % [facility] Lymphocytes Abs 0.9 0.9 - 3.2 x10(3)/[facility] Monocytes % 7.8 % [facility] Monocyte Abs 0.7 0.3 - 0.9 x10(3)/[facility] Eosinophils % 0.1 % [facility] Eosinophils Abs 0.0 0.0 - 0.4 x10(3)/[facility] Basophils % 0.2 % [facility] Basophils Abs 0.0 0.0 - 0.1 x10(3)/[facility] Immature Gran % 0.50 % [facility] Comment: Immature granulocytes(IG's)percentage and absolute count will include metamyelocytes, myelocytes, and promyelocytes. Blood smears from CBCs yielding IG's will be scanned manually for concordance. If this scan disagrees with the automated IG or if promyelocytes are noted, a manual differential will be performed. Patsy Gran Abs 0.04 0.00 - 0.04 x10(3)/[facility] Blood specimen (specimen) 08/16/2017 4:21 AM EST 08/16/2017 4:29 AM EST Narrative Resulting Agency Comment Spec In Lab Pankaj Valerio MD HEMATOLOGY ORDERABLE S Performing Organization Address City/State/[facility] Co de Phone Number [facility] [place] [address] * (ABNORMAL) Hemogram (08/16/2017 4:21 AM EST) WBC 8.6 4.0 - 9.5 x10(3)/[facility]AT[facility] RBC 5.03 4.00 - 5.21 x10(6)/[facility] Hemoglobin 15.2 11.7 - 15.5 gm/dL [facility] Hematocrit 45.1 35.7 - 45.8 % [facility] MCV 89.7 82.6 - 94.4 fL [facility] MCH 30.2 27.1 - 32.0 pg [facility] MCHC 33.7 31.7 - 35.0 gm/dL [facility] Platelets 167 145 - 357 x10(3)/[facility] LAB[facility]ATORY RDWSD 48.4(H) 37.0 - 46.0 fL [facility] RDWCV 14.7(H) 11.5 - 14.1 % [facility] MPV 10.4 7.6 - 12.9 fL [facility] nRBC % Auto 0.0 % [facility] nRBC Abs Auto 0.000 0.000 - 0.000 x10(3)/[facility] Blood specimen (specimen) 08/16/2017 4:21 AM EST 08/16/2017 4:29 AM EST Narrative Resulting Agency Comment Spec In Lab Pankaj Valerio MD HEMATOLOGY ORDERABLE S Performing Organization Address City/State/[facility] Co de Phone Number [facility] [place] [address] * Cardiac Enzymes (LEB/CGP) (08/16/2017 4:21 AM EST) Troponin-T <0.01 0.00 - 0.00 ng/mL [facility] Comment: The 99th percentile for Troponin T is less than 0.01 ng/mL, any detectable cTnT concentration using this assay should be considered elevated. According to the third universal definition of myocardial infarction the following criteria with a clinical presentation consistent with acute myocardial ischemia meets the diagnosis for a myocardial infarction (ND). Detection of a rise and/or fall of cTnT, with at least one value greater than the 99th percentile (> or = 0.01) and with at least one of the following ?? Symptoms of ischemia ?? New or presumed new significant MO-rfifrsz-K wave (ST-T) changes or new left bundle branch block (LBBB) ?? Development of pathologic Q waves in the ECG ?? Imaging evidence of new loss of viable myocardium or new regional wall motion abnormality ?? Identification of an intracoronary thrombus by angiography or autopsy Samples for cTnT testing should be obtained serially upon first assessment and again 3 to 6 hours later. If the clinical suspicion is high and previous samples have been negative an additional sample may be indicated. Reference: Third [place] Definition of Myocardial Infarction. Journal of the [place] [employer] 2012;60:1581-98 CK, Total 57 0 - 160 unit/L [facility] Blood specimen (specimen) 08/16/2017 4:21 AM EST 08/16/2017 4:29 AM EST Narrative Resulting Agency Comment Spec In Lab Pankaj Valerio MD CHEMISTRY ORDERABLES Performing Organization Address [facility] Co de Phone Number [facility] [place] [address] * EKG 12 Lead (08/16/2017 1:04 AM EST) Ventricular rate 50 BPM MUSE SYSTEM Atrial Rate 50 BPM MUSE SYSTEM P-R Interval 168 ms MUSE SYSTEM QRS Duration 88 ms MUSE SYSTEM Q-T Interval 512 ms MUSE SYSTEM QTC Calculated (Bezet) 466 ms MUSE SYSTEM Calculated P [place] 46 degrees MUSE SYSTEM Calculated R [place] 10 degrees MUSE SYSTEM Calculated T [place] 1 degrees MUSE SYSTEM INTERPRETATION Sinus bradycardia Otherwise normal ECG When compared with ECG of 15-AUG-2017 22:07, (unconfirmed) No significant change was found Confirmed by MD MCKEON ALAN ([id number]) on 08/16/2017 9:39:41 AM MUSE SYSTEM 08/16/2017 1:04 AM EST 08/16/2017 9:39 AM EST Pankaj Valerio MD ECG ORDERABLES Performing Organization Address City/[facility] Co de Phone Number MUSE SYSTEM * (ABNORMAL) Differential, Automated (08/15/2017 10:36 PM EST) Neutrophils % 85.6 % [facility] Neutr Abs (ANC) 7.77(H) 1.70 - 6.10 x10(3)/mc L [facility] Lymphocytes % 6.6 % [facility] Lymphocytes Abs 0.6(L) 0.9 - 3.2 x10(3)/[facility] Monocytes % 7.3 % [facility] Monocyte Abs 0.7 0.3 - 0.9 x10(3)/[facility] Eosinophils % 0.0 % [facility] Eosinophils Abs 0.0 0.0 - 0.4 x10(3)/[facility] Basophils % 0.1 % [facility] Basophils Abs 0.0 0.0 - 0.1 x10(3)/[facility] Immature Gran % 0.40 % [facility] Comment: Immature granulocytes(IG's)percentage and absolute count will include metamyelocytes, myelocytes, and promyelocytes. Blood smears from CBCs yielding IG's will be scanned manually for concordance. If this scan disagrees with the automated IG or if promyelocytes are noted, a manual differential will be performed. Patsy Gran Abs 0.04 0.00 - 0.04 x10(3)/[facility] Blood specimen (specimen) 08/15/2017 10:36 PM EST 08/15/2017 10:41 PM EST Narrative Resulting Agency Comment Spec In Lab Pankaj Valerio MD HEMATOLOGY ORDERABLE S Performing Organization Address City/State/[facility] Co de Phone Number [facility] [place] [address] * (ABNORMAL) Hemogram (08/15/2017 10:36 PM EST) WBC 9.1 4.0 - 9.5 x10(3)/[facility] LABORATORY RBC 5.00 4.00 - 5.21 x10(6)/[facility] Hemoglobin 15.1 11.7 - 15.5 gm/dL [facility] Hematocrit 44.9 35.7 - 45.8 % [facility] MCV 89.8 82.6 - 94.4 fL [facility] MCH 30.2 27.1 - 32.0 pg [facility] MCHC 33.6 31.7 - 35.0 gm/dL [facility] Platelets 162 145 - 357 x10(3)/[facility] RDWSD 48.8(H) 37.0 - 46.0 fL [facility] RDWCV 14.8(H) 11.5 - 14.1 % [facility] MPV 9.9 7.6 - 12.9 fL [facility] nRBC % Auto 0.0 % [facility] nRBC Abs Auto 0.000 0.000 - 0.000 x10(3)/[facility] Blood specimen (specimen) 08/15/2017 10:36 PM EST 08/15/2017 10:41 PM EST Narrative Resulting Agency Comment Spec In Lab Pankaj Valerio MD HEMATOLOGY ORDERABLE S Performing Organization Address City/State/[facility] Co de Phone Number [facility] [place] [address] * Cardiac Enzymes (LEB/CGP) (08/15/2017 10:36 PM EST) Troponin-T <0.01 0.00 - 0.00 ng/mL [facility] Comment: The 99th percentile for Troponin T is less than 0.01 ng/mL, any detectable cTnT concentration using this assay should be considered elevated. According to the third universal definition of myocardial infarction the following criteria with a clinical presentation consistent with acute myocardial ischemia meets the diagnosis for a myocardial infarction (ND). Detection of a rise and/or fall of cTnT, with at least one value greater than the 99th percentile (> or = 0.01) and with at least one of the following ?? Symptoms of ischemia ?? New or presumed new significant OW-psnuvyw-H wave (ST-T) changes or new left bundle branch block (LBBB) ?? Development of pathologic Q waves in the ECG ?? Imaging evidence of new loss of viable myocardium or new regional wall motion abnormality ?? Identification of an intracoronary thrombus by angiography or autopsy Samples for cTnT testing should be obtained serially upon first assessment and again 3 to 6 hours later. If the clinical suspicion is high and previous samples have been negative an additional sample may be indicated. Reference: Third [place] Definition of Myocardial Infarction. Journal of the [employer] [employer] 2012;60:1581-98 CK, Total 69 0 - 160 unit/L [facility] Blood specimen (specimen) 08/15/2017 10:36 PM EST 08/15/2017 10:41 PM EST Narrative Resulting Agency Comment Spec In Lab Pankaj Valerio MD CHEMISTRY ORDERABLES Performing Organization Address [facility] de Phone Number [facility] [place] [address] * Prothrombin Time (08/15/2017 10:36 PM EST) PT 13.0 11.8 - 14.0 sec [facility] INR 1.0 0.9 - 1.1 [facility] Comment: An INR <2.0 indicates adequate procoagulant activity for hemostasis in most patients without underlying bleeding disorders, though the INR may not adequately reflect hemostatic capacity in patients with liver disease and synthetic impairment. The recommended target INR range for therapeutic anticoagulation is 2.0 ? 3.0 for most applications, though lower and higher ranges may be appropriate depending on clinical circumstances. Blood specimen (specimen) 08/15/2017 10:36 PM EST 08/15/2017 10:41 PM EST Narrative Resulting Agency Comment Spec In Lab Pankaj Valerio MD HEMATOLOGY ORDERABLE S Performing Organization Address [facility] Co de Phone Number [facility] [place] [address] * (ABNORMAL) Hepatic Function Panel (08/15/2017 10:36 PM EST) Total Protein 6.5 6.1 - 8.0 gm/dL [facility] Albumin 3.4 3.2 - 5.2 gm/dL [facility] AST 71(H) 0 - 30 unit/L [facility] ALT 87(H) 0 - 30 unit/L [facility] Alk Phos 134(H) 40 - 104 unit/L [facility] Total Bilirubin 0.6 0.2 - 1.3 mg/dL [facility] Bili, Direct 0.2 0.0 - 0.3 mg/dL [facility] Blood specimen (specimen) 08/15/2017 10:36 PM EST 08/15/2017 10:41 PM EST Narrative Resulting Agency Comment Spec In Lab Pankaj Valerio MD CHEMISTRY ORDERABLES Performing Organization Address [facility]/ZIP Co de Phone Number [facility] [place] [address] * (ABNORMAL) pro-Brain Natriuretic Peptide (08/15/2017 10:36 PM EST) ProBNP 216(H) <=125 pg/mL [facility] Blood specimen (specimen) 08/15/2017 10:36 PM EST 08/15/2017 10:41 PM EST Narrative Resulting Agency Comment Spec In Lab Pankaj Valerio MD CHEMISTRY ORDERABLES Performing Organization Address [facility]/ZIP Co de Phone Number [facility] [place] [address] * TSH (08/15/2017 10:36 PM EST) TSH 0.63 0.27 - 4.20 mlU/ML [facility] Blood specimen (specimen) 08/15/2017 10:36 PM EST 08/15/2017 10:41 PM EST Narrative Resulting Agency Comment Spec In Lab Pankaj Valerio MD CHEMISTRY ORDERABLES Performing Organization Address City/[facility]/ZIP Co de Phone Number [facility] [place] [address] * Magnesium (08/15/2017 10:36 PM EST) Magnesium 0.84 0.69 - 1.07 mmol/L [facility] Blood specimen (specimen) 08/15/2017 10:36 PM EST 08/15/2017 10:41 PM EST Narrative Resulting Agency Comment Spec In Lab Pankaj Valerio MD CHEMISTRY ORDERABLES [facility] [place] [address] * Basic Metabolic Panel (non-fasting) (08/15/2017 10:36 PM EST) Glucose Lvl 122 65 - 199 mg/dL [facility] Comment:Diabetes: >=200 mg/d L plus symptoms BUN 17 8 - 18 mg/dL [facility] Creatinine 0.84 0.70 - 1.20 mg/dL [facility] Sodium 137 135 - 145 mmol/L [facility] Potassium 4.4 3.5 - 5.0 mmol/L [facility] Comment: Please note: ??Patients with WBC >100,000 may have falsely elevated Potassium levels. ??For accurate Potassium quantification in these patients send serum separator tube (gold top) for subsequent determinations. ??Contact the Clinical Chemistry Laboratory if there are any questions. Chloride 100 98 - 107 mmol/L [facility] CO2 22 22 - 31 mmol/L [facility] Anion Gap 15 5 - 15 mmol/L [facility] Calcium 8.6 8.5 - 10.5 mg/dL [facility] Estimated GFR >60 >=60 [facility] Comment: The reported eGFR should be multiplied by 1.2 for patients. The MDRD is not an appropriate measure of renal function for patients with body mass extremes or in patients with acute kidney failure. http://Funding Options/DHnkdep http://Funding Options/DHMCnkf Blood specimen (specimen) 08/15/2017 10:36 PM EST 08/15/2017 10:41 PM EST Narrative Resulting Agency Comment Spec In Lab Pankaj Valerio MD CHEMISTRY ORDERABLES Performing Organization Address [facility] Co de Phone Number [facility] [place] [address] * (ABNORMAL) APTT (08/15/2017 10:36 PM EST) PTT 90(H) 25 - 35 sec [facility] Comment: The recommended therapeutic range for full dose, unfractionated heparin at [facility] is 80 ? 114 seconds. The use of the anti-Xa (heparin) level rather than the PTT is recommended for monitoring anticoagulation intensity in critically ill patients receiving unfractionated heparin by continuous IV infusion. Blood specimen (specimen) 08/15/2017 10:36 PM EST 08/15/2017 10:41 PM EST Narrative Resulting Agency Comment Spec In Lab Pankaj Valerio MD HEMATOLOGY ORDERABLE S Performing Organization Address [facility] de Phone Number [facility] [place] [address] * EKG 12 Lead (08/15/2017 10:07 PM EST) Pathologist [facility] Ventricular rate 52 BPM MUSE SYSTEM Atrial Rate 52 BPM MUSE SYSTEM P-R Interval 162 ms MUSE SYSTEM QRS Duration 88 ms MUSE SYSTEM Q-T Interval 502 ms MUSE SYSTEM QTC Calculated (Bezet) 466 ms MUSE SYSTEM Calculated P [place] 41 degrees MUSE SYSTEM Calculated R [place] 1 degrees MUSE SYSTEM Calculated T [place] -2 degrees MUSE SYSTEM INTERPRETATION Sinus bradycardia RSR' or QR pattern in V1 suggests right ventricular conduction delay Borderline ECG When compared with ECG of 30-JUL-2017 07:20, No significant change was found Confirmed by MD MCKEON ALAN ([id number]) on 08/16/2017 9:38:36 AM MUSE SYSTEM 08/15/2017 10:0 7 PM EST 08/16/2017 9:38 AM EST Pankaj Valerio MD ECG ORDERABLES Performing Organization Address [facility] Co de Phone Number MUSE SYSTEM documented in this encounter Visit Diagnoses Not on filedocumented in this encounter Admitting Diagnoses Diagnosis Unstable angina Intermediate coronary syndrome documented in this encounter Administered Medications Inactive Administered Medications - up to 3 most recent administrations Medication Order MAR Action Action Date Dose Rate Site amLODIPine (NORVASC) tablet 5 mg 5 mg, Oral, DAILY, First dose on Tue08/16/17 at 1700, Until Discontinued, Routine Given 08/17/2017 7:18 AM EST 5 mg Given 08/16/2017 4:57 PM EST 5 mg aspirin chewable tablet 81 mg 81 mg, Oral, DAILY, First dose on Tue08/16/17 at 0900, Until Discontinued, Routine Given 08/17/2017 8:35 AM EST 81 mg Given 08/16/2017 8:34 AM EST 81 mg atorvastatin (LIPITOR) tablet 40 mg 40 mg, Oral, EVERY EVENING, First dose on Tue08/16/17 at 1700, Until Discontinued, Routine Given 08/16/2017 4:5 7 PM EST 40 mg clopidogrel (PLAVIX) tablet 75 mg 75 mg, Oral, DAILY, First dose on Tue08/16/17 at 0900, Until Discontinued, Routine Given 08/17/2017 8:35 AM EST 75 mg Given 08/16/2017 8:33 AM EST 75 mg enoxaparin (LOVENOX) injection 40 mg 40 mg, Subcutaneous, NIGHTLY, First dose on Tue08/17/17 at 2100, Until Discontinued, Routine fentaNYL 50 mcg/mL multi-dose injection ONCE PRN, Starting on Tue08/16/17 at 1359, Until Tue08/16/17 at 1611, Intra-Operative (Intra-Procedure), Routine Given 08/16/2017 2:16 PM EST 25 mcg Given 08/16/2017 2:09 PM EST 25 mcg Given 08/16/2017 2:03 PM EST 25 mcg FLUoxetine (PROzac) capsule 60 mg 60 mg, Oral, DAILY, First dose (after last modification) on Tue08/18/17 at 0900, Until Discontinued, Routine heparin (porcine) injection ONCE PRN, Starting on Tue08/16/17 at 1432, Until Tue08/16/17 at 1610, Cath (Intra-Procedure), Routine Given 08/16/2017 2:32 PM EST 2,000 Units iohexol (OMNIPAQUE) 350 mg/mL solution ONCE PRN, Starting on Tue08/16/17 at 1444, Until Tue08/16/17 at 1610, Cath (Intra-Procedure), Routine Given 08/16/2017 2:44 PM EST 30 mLs ipratropium-albuterol (DUONEB) 0.5 mg-3 mg(2.5 mg base)/3 mL nebulizer solution 3 mL 3 mL, Nebulization, EVERY 4 HOURS PRN, Starting on Tue08/15/17 at 2303, Until Tue08/17/17 at 2013, Wheezing, Routine Given 08/17/2017 2:41 PM EST 3 mL s Given 08/17/2017 6:04 AM EST 3 mLs lamoTRIgine (LaMICtal) tablet 150 mg 150 mg, Oral, DAILY, First dose on Tue08/16/17 at 0900, Until Discontinued, Routine Given 08/17/2017 8:3 5 AM EST 150 mg Given 08/16/2017 8:32 AM EST 150 mg LORazepam (ATIVAN) tablet 0.5 mg 0.5 mg, Oral, EVERY 6 HOURS PRN, Starting on Tue08/17/17 at 1044, Until Tue08/17/17 at 2013, Anxiety, Routine melatonin tablet 6 mg 6 mg, Oral, NIGHTLY, First dose on Tue08/15/17 at 2345, Until Discontinued, Routine Given 08/16/2017 8:43 PM EST 6 mg Given 08/15/2017 11:43 PM EST 6 mg meTOPROLOL (LOPRESSOR) tablet 12.5 mg 12.5 mg, Oral, EVERY 6 HOURS SCHEDULED, First dose on Tue08/16/17 at 0045, Until Discontinued, Hold for HR < 60 or sBP < 90, Routine Given 08/17/2017 11:40 AM EST 12.5 mg midazolam (PF) (VERSED) 1 mg/mL multi-dose injection ONCE PRN, Starting on Tue08/16/17 at 1359, Until Tue08/16/17 at 1610, Cath (Intra-Procedure), Routine Given 08/16/2017 2:18 PM EST 0.5 mg Given 08/16/2017 2:16 PM EST 0.5 mg Given 08/16/2017 2:11 PM EST 0.5 mg montelukast (SINGULAIR) tablet 10 mg 10 mg, Oral, NIGHTLY, First dose (after last modification) on Tue08/16/17 at 2100, Until Discontinued, Routine Given 08/16/2017 8:43 PM EST 10 mg nicotine (NICODERM CQ) 14 mg/24 hr patch 14 mg 14 mg, Transdermal, Administer over 24 Hours, DAILY, First dose on Tue08/16/17 at 0900, Until Discontinued, Routine nicotine (NICODERM CQ) 14 mg/24 hr patch Patch Removal Transdermal, DAILY, First dose on Tue08/16/17 at 0900, Until Discontinued, Remove nicotine 14 mg/24 hr patch nicotine (NICODERM CQ) 14 mg/24 hr patch Patch Verification Transdermal, 2 TIMES DAILY, First dose on Tue08/16/17 at 1030, Until Discontinued, Verify nicotine 14 mg/24 hr patch. nitroGLYcerin (NITROSTAT) SL tablet 0.4 mg 0.4 mg, Sublingual, EVERY 5 MIN PRN, Starting on Tue08/15/17 at 2228, Until Tue08/17/17 at 2013, Chest pain, May repeat every 5 minutes for a total of three doses. Notify provider if chest pain not relieved with nitroglycerin. Do not administer nitroglycerin if the patinet has received or taken phosphodiesterase (PDE-5) inhibitors such as sildenafil, tadalafil or vardenafil within the last 24 to 72 hours., Routine Given 08/17/2017 5:40 AM EST 0.4 mg Given 08/17/2017 5:30 AM EST 0.4 mg nitroGLYcerin 100 mcg/mL intracoronary dilution ONCE PRN, Starting on Tue08/16/17 at 1421, Until Tue08/16/17 at 1610, Cath (Intra-Procedure), Routine Given 08/16/2017 2:35 PM EST 150 mcg Given 08/16/2017 2:21 PM EST 150 mcg nitroGLYcerin 50 mg in dextrose 5% 250 mL infusion 30 mcg/min (9 mL/hr), Intravenous, CONTINUOUS, Starting on Tue08/15/17 at 2245, Until Tue08/17/17 at 2013, Maximum dose: 200 mcg/min, Routine Rate/Dose Change 08/16/2017 12:45 AM EST 30 mcg/min 9 mL/hr Rate/Dose Change 08/15/2017 11:06 PM EST 40 mcg/min 12 mL/ hr New Bag 08/15/2017 10:36 PM EST 30 mcg/min 9 mL/hr prazosin (MINIPRESS) capsule 1 mg 1 mg, Oral, NIGHTLY, First dose on Tue08/17/17 at 2100, Until Discontinued, Routine pregabalin (LYRICA) capsule 50 mg 50 mg, Oral, DAILY, First dose (after last modification) on Raissa 08/18/17 at 0900, Until Discontinued, Routine sodium chloride 0.9 % flush 5 mL 5 mL, Intravenous, 2 TIMES DAILY, First dose on Tue08/15/17 at 2245, Until Discontinued, Routine Given 08/17/2017 9:00 AM EST 5 mLs Given 08/16/2017 9:00 PM EST 5 mLs Given 08/15/2017 10:48 PM EST 5 mLs sodium chloride 0.9% infusion CONTINUOUS PRN, Starting on Tue08/16/17 at 1440, Until Tue08/16/17 at 1610, Cath (Intra-Procedure) New Bag 08/16/2017 2:40 PM EST 250 mLs 250 mL/hr documented in this encounter Active and Recently Administered Medications Times are shown in EST. Scheduled Medication Order 08/15/2017 08/16/2017 08/17/2017 acetaminophen (TYLENOL) tablet 650 mg (COMPLETED) 650 mg, Oral, ONCE, 1 dose, On Tue08/16/17 at 1000, Maximum dose of acetaminophen is 4000 mg from all sources in 24 hours., Routine 0957 (Given - Provider: Dior Galan RN) alum-mag hydroxide-simeth (MAALOX) 200-200-20 mg/5 mL oral suspension 10 mL (COMPLETED) 10 mL, Oral, ONCE, 1 dose, On Tue08/17/17 at 1015, Routine 1014 (Given - Provid er: Sindhu Scott RN) amLODIPine (NORVASC) tablet 5 mg 5 mg, Oral, DAILY, First dose on Tue08/16/17 at 1700, Until Discontinued, Routine 1657 (Given - Provider: Dior Galan RN) 0718 (Given - Provider: Bindu Ahumada RN)0900 (Not Given - Provider: Sindhu Scott RN - Reason: Contraindicated - Comment: Given early) aspirin chewable tablet 324 mg (COMPLETED) 324 mg, Oral, ONCE, 1 dose, On Tue08/16/17 at 0000, STAT 2351 (Given - Provider: Bindu Ahumada RN) aspirin chewable tablet 81 mg 81 mg, Oral, DAILY, First dose on Tue08/16/17 at 0900, Until Discontinued, Routine 0834 (Given - Provider: Dior Galan RN)1402 ([facility] Hold - Provider: Admin Adt - Reason: Transfer to a Procedural area)1612 ([facility] Unhold - Provider: Admin Adt) 0835 (Given - Provider: Sindhu Scott RN) atorvastatin (LIPITOR) tablet 40 mg 40 mg, Oral, EVERY EVENING, First dose on Tue08/16/17 at 1700, Until Discontinued, Routine 1402 ([facility] Hold - Provider: Admin Adt - Reason: Transfer to a Procedural area)1612 ([facility] Unhold - Provider: Admin Adt)1657 (Given - Provider: Dior Galan RN) 1700 (Due - Provider: Admin Adt) clopidogrel (PLAVIX) tablet 75 mg 75 mg, Oral, DAILY, First dose on Tue08/16/17 at 0900, Until Discontinued, Routine 0833 (Given - Provider: Dior Galan RN)1402 ([facility] Hold - Provider: Admin Adt - Reason: Transfer to a Procedural area)1612 ([facility] Unhold - Provider: Admin Adt) 0835 (Given - Provider: Sindhu Scott RN) diphenhydrAMINE/aluminum -magnesium hydroxide with simethicone/lidocaine (BMX) oral suspension (COMPLETED) 5 mL, Oral, ONCE, 1 dose, On Tue08/17/17 at 1030, Each 5 mL contains equal parts of diphenhydramine (BENADYL), aluminum-magnesium hydroxide w/ simethicone (MAALOX), and lidocaine (XYLOCAINE) , Routine 1024 (Given - Provid er: Sindhu Scott RN) enoxaparin (LOVENOX) injection 40 mg 40 mg, Subcutaneous, NIGHTLY, First dose on Tue08/17/17 at 2100, Until Discontinued, Routine FLUoxetine (PROzac) capsule 40 mg (CANCELED) 40 mg, Oral, DAILY, First dose on Tue08/16/17 at 0900, Until Discontinued, Routine 0833 (Given - Provider: Dior Galan RN)1402 ([facility] Hold - Provider: Admin Adt - Reason: Transfer to a Procedural area)1612 ([facility] Unhold - Provider: Admin Adt) 0835 (Given - Provider: Sindhu Scott RN) FLUoxetine (PROzac) capsule 60 mg 60 mg, Oral, DAILY, First dose (after last modification) on Tue08/18/17 at 0900, Until Discontinued, Routine lamoTRIgine (LaMICtal) tablet 150 mg 150 mg, Oral, DAILY, First dose on Tue08/16/17 at 0900, Until Discontinued, Routine 0832 (Given - Provider: Dior Galan RN)1402 ([facility] Hold - Provider: Admin Adt - Reason: Transfer to a Procedural area)1612 ([facility] Unhold - Provider: Admin Adt) 0835 (Given - Provider: Sindhu Scott RN) LORazepam (ATIVAN) injection 1 mg (COMPLETED) 1 mg, Intravenous, ONCE, 1 dose, On Tue08/17/17 at 1100, Routine 1140 (Given - Provid er: Sindhu Scott RN) melatonin tablet 6 mg 6 mg, Oral, NIGHTLY, First dose on Tue08/15/17 at 2345, Until Discontinued, Routine 2343 (Given - Provider: Bindu Ahumada RN) 1402 ([facility] Hold - Provider: Admin Adt - Reason: Transfer to a Procedural area)161 ([facility] Unhold - Provider: Admin Adt)2043 (Given - Provider: Bindu Ahumada RN) meTOPROLOL (LOPRESSOR) tablet 12.5 mg 12.5 mg, Oral, EVERY 6 HOURS SCHEDULED, First dose on Tue08/16/17 at 0045, Until Discontinued, Hold for HR < 60 or sBP < 90, Routine 0045 (Not Given - Provider: Bindu Ahumada RN - Reason: Order parameters not met)0600 (Not Given - Provider: Bindu Ahumada RN - Reason: Order parameters not met)1200 (Not Given - Provider: Dior Galan RN - Reason: Order parameters not met - Comment: HR 49)1402 ([facility] Hold - Provider: Admin Adt - Reason: Transfer to a Procedural area)1612 ([facility] Unhold - Provider: Admin Adt)1800 (Not Given - Provider: Dior Galan RN - Reason: Order parameters not met - Comment: HR 51) 0000 (Not Given - Provider: Bindu Ahumada RN - Reason: Order parameters not met)0600 (Not Given - Provider: Bindu Ahumada RN - Reason: Order parameters not met)1140 (Given - Provider: Sindhu Scott RN)1800 (Due - Provider: Admin Adt) montelukast (SINGULAIR) tablet 10 mg 10 mg, Oral, NIGHTLY, First dose (after last modification) on Tue08/16/17 at 2100, Until Discontinued, Routine 1402 ([facility] Hold - Provider: Admin Adt - Reason: Transfer to a Procedural area)161 ([facility] Unhold - Provider: Admin Adt)2042 (Given - Provider: Bindu Ahumada RN) morphine 2 mg/mL carpuject 2 mg (COMPLETED) 2 mg, Intravenous, ONCE, 1 dose, On Tue08/15/17 at 2300, STAT 2245 (Given - Provider: Bindu Ahumada RN) morphine 2 mg/mL carpuject 2 mg (COMPLETED) 2 mg, Intravenous, ONCE, 1 dose, On Tue08/17/17 at 0615, STAT 0554 (Given - Provid er: Valorie Mcdaniel RN) morphine 2 mg/mL carpuject 4 mg (COMPLETED) 4 mg, Intravenous, ONCE, 1 dose, On Tue08/16/17 at 0600, STAT 0602 (Given - Provider: Bindu Ahumada RN) morphine 2 mg/mL carpuject 4 mg (COMPLETED) 4 mg, Intravenous, ONCE, 1 dose, On Tue08/17/17 at 0645, STAT 0621 (Given - Provid er: Bindu Ahumada RN) morphine 2 mg/mL carpuject 4 mg (COMPLETED) 4 mg, Intravenous, ONCE, 1 dose, On Tue08/17/17 at 0730, Routine 0800 (Given - Provid er: Sindhu Scott RN) morphine 4 mg/mL carpuject 4 mg (COMPLETED) 4 mg, Intravenous, ONCE, 1 dose, On Tue08/15/17 at 2330, STAT 2330 (Given - Provider: Bindu Ahumada RN) nicotine (NICODERM CQ) 14 mg/24 hr patch 14 mg(Linked Group 1) 14 mg, Transdermal, Administer over 24 Hours, DAILY, First dose on Tue08/16/17 at 0900, Until Discontinued, Routine 0900 (Not Given - Provider: Dior Galan RN - Reason: Patient/family refused - Comment: Pt says she does not feel as she needs a patch yet)1402 ([facility] Hold - Provider: Admin Adt - Reason: Transfer to a Procedural area)1612 ([facility] Unhold - Provider: Admin Adt) 0900 (Not Given - Provider: Sindhu Scott RN - Reason: Patient/family refused) nicotine (NICODERM CQ) 14 mg/24 hr patch Patch Removal(Linked Group 1) Transdermal, DAILY, First dose on Tue08/16/17 at 0900, Until Discontinued, Remove nicotine 14 mg/24 hr patch 0900 (Patch Not Removed (add comment) - Provider: Dior Galan RN - Comment: patch not placed previously)1402 ([facility] Hold - Provider: Admin Adt - Reason: Transfer to a Procedural area)1612 ([facility] Unhold - Provider: Admin Adt) 0900 (Patch Not Removed (add comment) - Provider: Sindhu Scott RN - Comment: not present) nicotine (NICODERM CQ) 14 mg/24 hr patch Patch Verification(Linked Group 1) Transdermal, 2 TIMES DAILY, First dose on Tue08/16/17 at 1030, Until Discontinued, Verify nicotine 14 mg/24 hr patch. 1030 (Not Given - Provider: Dior Galan RN - Reason: See comment - Comment: patch not placed previously)1402 ([facility] Hold - Provider: Admin Adt - Reason: Transfer to a Procedural area)1612 ([facility] Unhold - Provider: Admin Adt)2100 (Patch (dose and location) verified - Provider: Bindu Ahumada RN) 0900 (Patch Not Verified (add comment) - Provider: Sindhu Scott RN - Comment: no patch on) ondansetron (ZOFRAN) injection 4 mg (COMPLETED) 4 mg, Intravenous, ONCE, 1 dose, On Tue08/17/17 at 0615 0615 (Given - Provid er: Bindu Ahumada RN) prazosin (MINIPRESS) capsule 1 mg 1 mg, Oral, NIGHTLY, First dose on Tue08/17/17 at 2100, Until Discontinued, Routine pregabalin (LYRICA) capsule 50 mg 50 mg, Oral, DAILY, First dose (after last modification) on Tue08/18/17 at 0900, Until Discontinued, Routine pregabalin (LYRICA) capsule 75 mg (CANCELED) 75 mg, Oral, DAILY, First dose on Tue08/16/17 at 0900, Until Discontinued, Routine 0834 (Given - Provider: Dior Galan RN)1402 ([facility] Hold - Provider: Admin Adt - Reason: Transfer to a Procedural area)1612 ([facility] Unhold - Provider: Admin Adt) 0835 (Given - Provider: Sindhu Scott, KOREY) sodium chloride 0.9 % flush 5 mL 5 mL, Intravenous, 2 TIMES DAILY, First dose on Tue08/15/17 at 2245, Until Discontinued, Routine 2248 (Given - Provider: Bindu Ahumada RN) 0900 (Not Given - Provider: Dior Galan RN - Reason: See comment - Comment: given earlier)1402 ([facility] Hold - Provider: Admin Adt - Reason: Transfer to a Procedural area)1612 ([facility] Unhold - Provider: Admin Adt)2100 (Given - Provider: Bindu Ahumada RN) 0900 (Given - Provider: Sindhu Scott, KOREY) Continuous Medication Order 08/15/2017 08/16/2017 08/17/2017 heparin 25,000 units in dextrose 5% 500 mL infusion (CANCELED)(Linked Group 2) 0-5,000 Units/hr (0-100 mL/hr), Intravenous, CONTINUOUS, Starting on Tue08/15/17 at 2245, Until Tue08/16/17 at 1635, BEGIN infusion at 950 units per hr (12 units/kg/hr). MAX INITIAL infusion rate is 1,000 units/hr. Target PTT = 80 - 114 seconds Start adjustment schedule 6 hours after starting infusion. If PTT is: - less than 60 seconds, Administer PRN bolus and increase rate by 300 units per hr (4 units/kg/hr) - 60 - 79 seconds, Administer PRN bolus and increase rate by 150 units per hr (2 units/kg/hr) - 80 - 114 seconds, No Change - 115 - 129 seconds, decrease rate by 100 units per hr (1 units/kg/hr) - 130 - 145 seconds, stop infusion for 30 minutes, then decrease rate by 150 units per hr (2 units/kg/hr) - Greater than 145 seconds, stop infusion for 60 minutes, then decrease rate by 250 units per hour (3 units/kg/hr) Repeat aPTT 6 hours after initiating heparin. Then 6 hours after each dose adjustment. When 2 consecutive aPTT within target range of 80 - 114 seconds, change aPTT to once every 24 hours with A.M. labs while on heparin. RN to order required aPTT - Per Protocol, Routine, Indication: ACS (STEMI vs NSTEMI vs UA) 2237 (New Bag - Provider: Bindu Ahumada RN) 0607 (Rate/Dose Change - Provider: Bindu Ahumada RN)1338 (Rate/Dose Change - Provider: Dior Galan RN)1402 ([facility] Hold - Provider: Admin Adt - Reason: Transfer to a Procedural area)1612 ([facility] Unhold - Provider: Admin Adt) nitroGLYcerin 50 mg in dextrose 5% 250 mL infusion 30 mcg/min (9 mL/hr), Intravenous, CONTINUOUS, Starting on Tue08/15/17 at 2245, Until Tue08/17/17 at 2013, Maximum dose: 200 mcg/min, Routine 2236 (New Bag - Provider: Bindu Ahumada RN)2306 (Rate/Dose Change - Provider: Bindu Ahumada RN) 0045 (Rate/Dose Change - Provider: Bindu Ahumada RN)1402 ([facility] Hold - Provider: Admin Adt - Reason: Transfer to a Procedural area)1612 ([facility] Unhold - Provider: Admin Adt) sodium chloride 0.9% infusion () 100 mL/hr, Intravenous, CONTINUOUS, Starting on Tue08/16/17 at 1515, Until Tue08/16/17 at 1914, Recovery (Recovery-Hospital Unit) 1515 (Continued Bag - Provider: Sindhu Casey RN)1945 (Stopped - Provider: Bindu Ahumada RN) PRN Medication Order 08/15/2017 08/16/2017 08/17/2017 fentaNYL 50 mcg/mL multi-dose injection (CANCELED) ONCE PRN, Starting on Tue08/16/17 at 1359, Until Tue08/16/17 at 1611, Intra-Operative (Intra-Procedure), Routine 1403 (Given - Provider: Yusuf López RN)1409 (Given - Provider: Sonia Colunga, KOREY)1416 (Given - Provider: Sonia Colunga, KOREY) heparin (porcine) injection (CANCELED) ONCE PRN, Starting on Tue08/16/17 at 1432, Until Tue08/16/17 at 1610, Cath (Intra-Procedure), Routine 1432 (Given - Provider: Sonia Colunga, KOREY) iohexol (OMNIPAQUE) 350 mg/mL solution (CANCELED) ONCE PRN, Starting on Tue08/16/17 at 1444, Until Tue08/16/17 at 1610, Cath (Intra-Procedure), Routine 1444 (Given - Provider: Vivi Kathleen MD) ipratropium-albuterol (DUONEB) 0.5 mg-3 mg(2.5 mg base)/3 mL nebulizer solution 3 mL 3 mL, Nebulization, EVERY 4 HOURS PRN, Starting on Tue08/15/17 at 2303, Until Tue08/17/17 at 2013, Wheezing, Routine 1402 ([facility] Hold - Provider: Admin Adt - Reason: Transfer to a Procedural area)1612 ([facility] Unhold - Provider: Admin Adt) 0604 (Given - Provider: Bindu Ahumada RN)1441 (Given - Provider: Sindhu Scott RN) lidocaine (XYLOCAINE) 10 mg/mL (1 %) injection 3 mg 3 mg (0.3 mL), Subcutaneous, ONCE PRN, 1 dose, Starting on Tue08/15/17 at 2228, Until Tue08/17/17 at 2012, for discomfort with PIV insertion, Routine 1402 ([facility] Hold - Provider: Admin Adt - Reason: Transfer to a Procedural area)1612 ([facility] Unhold - Provider: Admin Adt) LORazepam (ATIVAN) tablet 0.5 mg 0.5 mg, Oral, EVERY 6 HOURS PRN, Starting on Tue08/17/17 at 1044, Until Tue08/17/17 at 2012, Anxiety, Routine midazolam (PF) (VERSED) 1 mg/mL multi-dose injection (CANCELED) ONCE PRN, Starting on Tue08/16/17 at 1359, Until Tue08/16/17 at 1610, Cath (Intra-Procedure), Routine 1403 (Given - Provider: Yusuf López, KOREY)1411 (Given - Provider: Sonia Colunga, KOREY)1416 (Given - Provider: Sonia Colunga, KOREY)1418 (Given - Provider: Sonia Colunga RN) nitroGLYcerin (NITROSTAT) SL tablet 0.4 mg 0.4 mg, Sublingual, EVERY 5 MIN PRN, Starting on Tue08/15/17 at 2228, Until Tue08/17/17 at 2012, Chest pain, May repeat every 5 minutes for a total of three doses. Notify provider if chest pain not relieved with nitroglycerin. Do not administer nitroglycerin if the patinet has received or taken phosphodiesterase (PDE-5) inhibitors such as sildenafil, tadalafil or vardenafil within the last 24 to 72 hours., Routine 1402 ([facility] Hold - Provider: Admin Adt - Reason: Transfer to a Procedural area)1612 ([facility] Unhold - Provider: Admin Adt) 0530 (Given - Provider: Bindu Ahumada RN)0540 (Given - Provider: Valorie Mcdaniel RN) nitroGLYcerin 100 mcg/mL intracoronary dilution (CANCELED) ONCE PRN, Starting on Tue08/16/17 at 1421, Until Tue08/16/17 at 1610, Cath (Intra-Procedure), Routine 1421 (Given - Provider: Wendie Miranda)1435 (Given - Provider: Vivi Kathleen MD) sodium chloride 0.9 % flush 5-20 mL 5-20 mL, Intravenous, EVERY 1 MIN PRN, Starting on Tue08/15/17 at 2228, Until Tue08/17/17 at 2012, flush, Flush pertains to all indwelling lines. Flush per protocol found in the job aid using the link provided on this medication record., Routine 1402 ([facility] Hold - Provider: Admin Adt - Reason: Transfer to a Procedural area)1612 ([facility] Unhold - Provider: Admin Adt) sodium chloride 0.9% infusion (CANCELED) CONTINUOUS PRN, Starting on Tue08/16/17 at 1440, Until Tue08/16/17 at 1610, Cath (Intra-Procedure) 1440 (New Bag - Provider: Sonia Colunga, RN) No Frequency Medication Order 08/15/2017 08/16/2017 08/17/2017 ondansetron (ZOFRAN) 4 mg/2 mL injection 1 dose, Starting on Tue08/17/17 at 0557, Until Tue08/17/17 at 1759, DILIPVALORIE iLz: cabinet override 0600 (Not Given - Pr ovider: Sindhu Scott RN - Reason: See comment - Comment: Given by other) Linked Groups Order Group 1: nicotine (NICODERM CQ) 14 mg/24 hr patch 14 mgJump to med 14 mg, Transdermal, Administer over 24 Hours, DAILY, First dose on Tue08/16/17 at 0900, Until Discontinued, Routine And nicotine (NICODERM CQ) 14 mg/24 hr patch Patch VerificationJump to med Transdermal, 2 TIMES DAILY, First dose on Tue08/16/17 at 1030, Until Discontinued, Verify nicotine 14 mg/24 hr patch. And nicotine (NICODERM CQ) 14 mg/24 hr patch Patch RemovalJump to med Transdermal, DAILY, First dose on Tue08/16/17 at 0900, Until Discontinued, Remove nicotine 14 mg/24 hr patch Group 2: heparin (porcine) injection 0-4,000 Units (CANCELED) 0-4,000 Units, Intravenous, BOLUS PER HEPARIN PROTOCOL, Starting on Tue08/15/17 at 2228, Until Tue08/16/17 at 1635, Per Protocol, START ADJUSTMENT SCHEDULE 6 HOURS AFTER STARTING INFUSION aPTT Between 60 - 79 seconds: Bolus 2,000 units aPTT Less than 60 seconds: Bolus 4,000 units Increase infusion and recheck aPTT in 6 hours. , Routine And heparin 25,000 units in dextrose 5% 500 mL infusion (CANCELED)Jump to med 0-5,000 Units/hr (0-100 mL/hr), Intravenous, CONTINUOUS, Starting on Tue08/15/17 at 2245, Until Tue08/16/17 at 1635, BEGIN infusion at 950 units per hr (12 units/kg/hr). MAX INITIAL infusion rate is 1,000 units/hr. Target PTT = 80 - 114 seconds Start adjustment schedule 6 hours after starting infusion. If PTT is: - less than 60 seconds, Administer PRN bolus and increase rate by 300 units per hr (4 units/kg/hr) - 60 - 79 seconds, Administer PRN bolus and increase rate by 150 units per hr (2 units/kg/hr) - 80 - 114 seconds, No Change - 115 - 129 seconds, decrease rate by 100 units per hr (1 units/kg/hr) - 130 - 145 seconds, stop infusion for 30 minutes, then decrease rate by 150 units per hr (2 units/kg/hr) - Greater than 145 seconds, stop infusion for 60 minutes, then decrease rate by 250 units per hour (3 units/kg/hr) Repeat aPTT 6 hours after initiating heparin. Then 6 hours after each dose adjustment. When 2 consecutive aPTT within target range of 80 - 114 seconds, change aPTT to once every 24 hours with A.M. labs while on heparin. RN to order required aPTT - Per Protocol, Routine, Indication: ACS (STEMI vs NSTEMI vs UA) documented in this encounter Care Teams Rnfa Relationship Specialty Start Date End Date Asya Hand MD [address] [place], [place] [id number] PCP - General Oncology 06/11/16 08/09/19 documented as of this encounter
--- OUTSIDE RECORDS SUMMARY | 2024-04-13 11:20 | XMS_ITS | Encounter Summary ---
Author Organization [facility] [place] [address] Care Team Providers Care Automatic Blocker Name Role Phone Asya Hand MD Primary Care Provider [phone] Encounter Details Date Type Department Care Team (Late st Contact Info) Description 08/15/2017 External [place] [id number] Social History Tobacco Use Types Packs/Day Years [...] Procedure Name Priority Date/Time Associated Diagnosis Comments ECG SCAN Routine 08/15/2017 documented in this encounter Results * Scan Doc: ECG (08/15/2017) Historical Provider MEDIA MGR SCAN EX T ORDR/RSLT documented in this encounter Visit Diagnoses Not on filedocumented in this encounter Care Teams Automatic Blocker Relationship Specialty Start Date End Date Asya Hand MD [address] [place] [address] PCP - General Oncology 06/11/16 08/09/19 documented as of this encounter
--- OUTSIDE RECORDS SUMMARY | 2024-04-13 11:20 | XMS_ITS | Encounter Summary ---
Author Organization [facility] Address [facility] [place] [address] Care Team Providers Care Filter Filler Name Role Phone Asya Hand MD Primary Care Provider [phone] Reason for Visit * Auth/Cert Specialty Diagnoses / Procedures Referred By Contac t Referred To Contact Diagnoses Unstable angina CHEST PAIN, ACS, ANGINA Referral ID Status Reason Start Date Expiration Date Visits Re quested Visits Authorized [id number] 1 1 Encounter Details Date Type Department Care Team (Latest Contact Info) Description 08/15/2017 9:51 PM EST - 08/17/2017 6:08 PM EST Hospital Encounter Inter[place] [address] Pankaj Valerio MD [facility] [place] [address] ACS (acute coronary syndrome) Discharge Disposition: Home Social History Tobacco Use [...] documented in this encounter Discharge Summaries * Gabriel Peterson - 08/17/2017 8:03 AM EST Cardiology - [...] old female who presents in transfer from [facility] with chest pain now transferred for unstable angina. ?? Of note, she was recently admitted at [facility] 07/29/17 - 07/30/17 for NSTEMI. During this admission, troponin peaked at 0.22 and she underwent catheterization and received 1 x MARY to the mid-RCA and 1 x MARY to mid-LAD. She was discharged on DAPT (ASA and clopidogrel) 07/30/17. ?? Ms. Williamson reports ongoing 4-5/10 less focal anterior chest pain, 80% of the time since discharge from [facility] earlier this month with pain in the back as well. The pain comes and goes with and without exertion. She's generally been feeling unwell since discharge with poor appetite and decreased energy. Two weeks ago she started having URI with productive cough. This past Tuesday she went to [facility] ED for pain in the RUQ as [...] and had a friend drive her to [facility] ED when the pain reached 10/10. The pain was associated with dyspnea, without nausea or diaphoresis. ?? At [facility], vitals BP 148/94, HR 84, RR 28, [...] (normal 0.1 - 0.3) ?? EKG at [facility] with non-specific T wave flattening in V2-V4 [...] for unstable angina. ?? On arrival to [facility], patient c/o 6/10 anterior chest pain, stable since 7 pm. Hospital Course: # Unstable Angina Ms. Williamson is a 52 year old female with recent NSTEMI s/p MARY to RCA and LAD who presents in transfer from [facility] with chest pain for management of unstable [...] f/u as an outpatient. No role of RUQ US atthe current time. Medications not suspected. [...] Important Studies and Lab Data: Recent Labs 08/17/1731 08/16/171 08/15/172235 WBC 7.3 8.6 9.1 HGB 16.5* 15.2 15.1 PLATELET 161 167 162 Recent Labs 08/17/1731 08/15/172235 NA 138 137 K 3.6 4.4 CL 98 100 CO2 25 22 BUN 13 17 CREATININE 0.87 0.84 GLUCOSE 82 122 Recent Labs 08/17/1731 08/15/172235 CALCIUM 9.5 8.6 MAGNESIUM 0.74 0.84 Recent Labs 08/17/1731 08/16/17 1100 08/16/17420 CK 37 42 57 [...] attack. You were taken back to the cath lab tech to investigate your coronary anatomy, where they [...] Doctor: Pankaj Valerio MD Follow-up: ?? Your Restaurant Mgr office was contacted and will contact you for a follow-up appointment in the next1 month. This will be with Dr. Chang. If you do not hear from them in the next week, please contact their office at [phone]. Your PCP office was closed due to the holidays. A voicemail was left to ask them to contact you logan appointment in the next 7-10 days. This will be with Asya Hand MD or one of her partners. Please contact them if you do not hear from the office by 08/22/2017 at [phone]. ?? Your Primary Care Provider: Asya Hand MD [phone] For questions regarding this document or issues relating to this hospitalization on the Medical Service, please contact your inpatient physician through the [facility] Architecture Consultant . Issues afterhours and on weekends will be handled by the Hospitalist staff on-call. For questions regarding this document or issues relating to this hospitalization on the Medical Service, please contact your inpatient physician through the [facility] Architecture Consultant . Issues afterhours and on weekends will be handled by the Restaurant Mgr staff on-call. Signed: Gabriel Peterson MD documented in this encounter Discharge Instructions * Discharge Instructions* Roberto Ramos APRN - 08/17/2017 2:08 PM EST PSYCHIATRY Therapy Resources 1) Go to [email or web address] and click on Find a Therapist - You can find a therapist by selecting different filters that fit your need (geographic location, insurance, type of therapy, etc) 2) [facility] mental health in your firsthealth: - [facility] and [facility] 3) Contact your insurance company for a [...] are feeling unsafe, you can call the [facility] crisis number at [phone]. You may also contact the [facility] crisis line at [phone] if you reside locally in [place]. You may contact [facility] crisis line at [phone] if you live locally in [place]. National Suicide Prevention Lifeline: Crisis Text Line: If you are feeling in acute crisis text CONNECT to 478277 Substance Use Treatment and Relapse Prevention Resources 211 and Safe Station: Your Connection to Recovery You can dial 2-1- from anywhere in [place] and be connected to a high school coach who will help you connect to the appropriate substance use treatment. You can also go to any one of the fire stations in [place] and [facility], now designated as ???Safe Stations?? , a place where you can walk in, from anywhere in [place] 18/04, and get connectedwith substance use treatment services. [facility] Safe Stations Central Fire Station: [address] --- Station 2: [address] Station 3: [address] --- Station 4: [address] Station 5: [address] --- Station 6: [address] Station 7: [address]--- Station 8: [address] [facility] [address] Station 9: [address]--- Station 10: [address] [facility] Safe Stations Station 1: [address] --- Station 2: [address] --- Station 3: [address] Station 4: [address] --- Station 5: [address] -- Station 6: [address] Station 7: [address] Additional Resources http://nhtreatment.org/ http://www.health[place]mont.gov/sites/default/files/documents//adap_treatmen t_recovery_directory.pdf http://healthvermont.gov/alcohol-drugs http://www.uma information technologytoday.com/ http://www.uvalltogether.org/wp-content/uploads//ConsumersGuideforSubstan jxDdmPqqzczktnxkGgdigEsskip4814.pdf Opiate Overdose Prevention www.prescribetoprevent.org * Patient Instructions* Gabriel Peterson - 08/17/2017 8:00 AM EST Instructions on Discharge to Home Why you were hospitalized - You were having continued chest pain after your cardiac cath at the beginning of the month. You lab results did not show a heart attack. You were taken back to the cath lab tech to investigate your coronary anatomy, where they [...] Doctor: Pankaj Valerio MD Follow-up: ?? Your Restaurant Mgr office was contacted and will contact you for a follow-up appointment in the next1 month. This will be with Dr. Chang. If you do not hear from them in the next week, please contact their office at [phone]. Your PCP office was closed due to the holidays. A voicemail was left to ask them to contact you logan appointment in the next 7-10 days. This will be with Asya Hand MD or one of her partners. Please contact them if you do not hear from the office by 08/22/2017 at [phone]. ?? Your Primary Care Provider: Asya Hand MD [phone] For questions regarding this document or issues relating to this hospitalization on the Medical Service, please contact your inpatient physician through the [facility] Architecture Consultant . Issues afterhours and on weekends will be handled by the Hospitalist staff on-call. * Attachments The following attachments cannot be sent through Care Everywhere. * PCI (PERCUTANEOUS CORONARY INTERVENTION): POST-OP (PERSIAN) documented in this encounter Medications at Time [...] shift. VSS. Right radial site CDI. C/O 810 chest pain in am, temporarily relieved with [...] condition. Friend is providing a ride home. * Kristen Gabriel - 08/17/2017 10:06 AM EST Inpatient Cardiology Progress Note Patient Name: Sahra Williamson Date of Admission: 08/15/2017 ( Hospital Day 2 days ) Service: S1 ID: Ms. Williamson is a 52 year old female with recent NSTEMI s/p MARY to RCA and LAD who presents in transfer from [facility] with chest pain for management of unstable [...] MAGNESIUM 0.74 0.84 Recent Labs 08/16/17 1233 08/16/1742008/15/172235 INR -- -- 1.0 PT -- -- [...] and LAD who presents in transfer from [facility] with chest pain for management of unstable [...] Gabriel Peterson MD, PGY-1 Cardiology S1 (Pager [phone]) Associated attestation - Pankaj Valerio MD - [...] in 1 month Pankaj Valerio MD, FA, [facility] * Stephanie Stanton - 08/16/2017 11:18 PM EST Post-Catheterization Progress [...] and LAD who presents in transfer from [facility] with chest pain for management of unstable [...] Units/hr (08/16/17 0607) ??? nitroGLYcerin 30 mcg/min (08/16/17 0045) Scheduled Meds: ??? meTOPROLOL 12.5 mg Oral [...] 45.1 44.9 PLATELET 167 162 Recent Labs 11/20/17 2236 NA 137 K 4.4 CL 100 CO2 22 BUN 17 CREATININE 0.84 Recent Labs 08/15/176 AST 71* ALT 87* ALKPHOS 134* BILITOT 0.6 BILIDIR 0.2 Recent Labs 08/15/176 CALCIUM 8.6 MAGNESIUM 0.84 Recent Labs 08/16/17 0421 08/15/176 INR -- 1.0 PT -- 13.0 PTT 151* 90* Recent Labs 08/16/17 0421 08/15/172235 CK 57 69 TROPONINT <0.01 <0.01 No [...] and LAD who presents in transfer from [facility] with chest pain for management of unstable [...] Status: FULL CODE ?? Dispo- Pending course aGbriel Peterson MD, PGY-1 Cardiology S1 (Pager [phone]) * Quiana Oconnor MD - 08/16/2017 12:26 AM EST Brief Fellow Note: Patient ID: Sahra Williamson is a 52 y.o. female with a history of HTN, HLD, polysubstance abuse and ASCVD s/p recent NSTEMI with PCI to the mid RCA and mid LAD on 07/29/17 and discharged on 07/30/17. Clinical Synopsis: She presents in transfer from [facility] for evaluation of chest pain. Please see [...] despite continuous pain for>12 hours, activating the cath lab tech overnight for chest pain we do not [...] PCP: Asya Hand MD PCP phone #: [phone] ID/Chief Complaint: Chest pain / unstable angina History of Present Illness: Ms. Williamson is a 52 year old female who presents in transfer from [facility] with chest pain now transferred for unstable angina. Of note, she was recently admitted at [facility] 07/29/17 - 07/30/17 for NSTEMI. During this admission, troponin peaked at 0.22 and she underwent catheterization and received 1 x MARY to the mid-RCA and 1 x MARY to mid-LAD. She was discharged on DAPT (ASA and clopidogrel) 07/30/17. Ms. Williamson reports ongoing 4-5/10 less focal anterior chest pain, 80% of the time since discharge from [facility] earlier this month with pain in the back as well. The pain comes and goes with and without exertion. She's generally been feeling unwell since discharge with poor appetite and decreased energy. Two weeks ago she started having URI with productive cough. This past Tuesday she went to [facility] ED for pain in the RUQ as [...] and had a friend drive her to [facility] ED when the pain reached 10/10. The pain was associated with dyspnea, without nausea or diaphoresis. At [facility], vitals BP 148/94, HR 84, RR 28, [...] 0.31 (normal 0.1 - 0.3) EKG at [facility] with non-specific T wave flattening in V2-V4 [...] transfer for unstable angina. On arrival to [facility], patient c/o 6/10 anterior chest pain, stable [...] Coronary artery disease 02/05/2016 Coronary angiogram at [facility]: LAD mid 50%, OM1 long [...] History: Mother: CVA at 67, fatal Father: OH in late 60s, non-fatal, living Siblings: no cardiac disease Social History: Tobacco: 8-10 cigarettes/day, 30 pack years EtOH: 2-3 glasses a wine or beer 3 times / week Illicits: Smokes marijuana couple times / month. Living Situation: Lives in [place], [place]. Lives alone in an apartment. Vocation: [...] ) Recent Labs 08/16/17 0421 08/15/17 2236 07/30/17619 WBC 8.6 9.1 7.7 HGB 15.2 15.1 16.4* PLATELET 167 162 180 Chemistry: Recent Labs 08/15/17223507/30/1761907/29/17 1825 NA 137 138 139 K 4.4 4.3 4.6 CL 100 102 102 CO2 22 27 26 BUN 17 11 13 CREATININE 0.84 0.87 0.88 GLUCOSE 122 98 70 Recent Labs 08/15/17223507/30/1761907/29/17 1825 CALCIUM 8.6 8.7 8.6 8.6 MAGNESIUM 0.84 -- 0.85 LFT's: Recent Labs 08/15/172235 BILITOT 0.6 BILIDIR 0.2 ALBUMIN 3.4 ALKPHOS 134* ALT 87* AST 71* Coags: Recent Labs 08/15/172235 PT 13.0 INR 1.0 PTT 90* Cardiac enzymes: Recent Labs 08/15/17223507/30/1761907/29/17 2339 07/29/17 1825 TROPONINT <0.01 0.13* 0.22* [...] and LAD who presents in transfer from [facility] with chest pain for management of unstable [...] Status: FULL CODE Dispo- Pending course Stephanie Stanton, PGY 2 - Internal Medicine Pager [phone] Cardiology Associated attestation - Pankaj Valerio MD [...] no particular pattern. She was evaluated at [facility] on Tuesday with some cough related pain. [...] her LAD or RCA. Pankaj Valerio MD, FA, [facility] documented in this encounter Miscellaneous Notes * Consult Note - Rachel Roberto MYAH Subramanian - 08/17/2017 1:49 PM EST Psychiatric Initial [...] felt similar to when she had an OH. She has had some chest pain today, but relays that when she becomes anxious about the pain it seems to become worse. #Anxiety Ms. Williamson states that she is in her 50's and has already had two OH's and a stroke. Thus, her anxiety is [...] Abuse of opiates when she was in [place] for neck and back issues; went to a rehab facility where she took Suboxone; pain returned and she misused the prescribed opiates again. When she moved back to [facility] and her PCP worked together to discontinue [...] tablet 12.5 mg 12.5 mg Oral Q6H VIANEY Stephanie Stanton, DO 12.5 mg at 08/17/17 1140 ??? [...] BID Stephanie Stanton, DO 5 mL at 900 ??? sodium chloride 0.9 % flush 5-20 [...] infusion 30 mcg/min Intravenous Continuous carmen Stephanie Dhruv, DO 9 mL/hr at 08/16/17 0045 30 mcg/min at 08/16/17 0045 ??? montelukast (SINGULAIR) tablet 10 mg 10 mg Oral Nightly Stephanie morales, DO 10 mg at 08/16/172042 ??? ipratropium-albuterol (DUONEB) 0.5 mg-3 mg(2.5 mg base)/3 mL nebulizer solution 3 mL 3 mL Nebulization Q4H PRN Stephanie morales, DO 3 mL at 08/17/17 0604 ??? melatonin tablet 6 mg 6 mg Oral Nightly Stephanie Stanton, DO 6 mg at 08/16/172042 Medical Review of Systems: Constitutional: Afebrile, laying comfortably in bed in NAD HEENT: No difficulty chewing or swallowing, denies trouble with vision, denies headach Cardiovascular: Some chest pain earlier today Respiratory: No SOB or cough noted GI: No N&V /DISTRICT FIRE CHIEF (include LMP if applicable): States she was incontinent x2 last night, which has never happened to her before Endocrine: Musculoskeletal: Pain in neck and back Integumentary: No abnormalities noted Neurological: Alert Hematologic/Lymphatic: No visible bleeding or bruising Allergic/Immunologic: Imitrex, Alprazolam, Amoxicillin, Ampicillin, Azithromycin, Codeine Phosphate, Sulfa Psychiatric: See above Social History: Originally from [place], but moved to [place] between [address]. , two son's in their 30's, and [...] her anxiety. Ms. Williamson, having suffered two OH's and a stroke is appropriately concerned about [...] referrals her prior therapist gave her. This aligner typewriter will also provide her with additional outpatient resources in her discharge summary. In regards to her psychiatric medications, her Fluoxetine was increased to 60mg. We discussed additional options as well. To help with her nightmares, this aligner typewriter educated Ms. Williamson on the use of Prazosin. This aligner typewriter also educated her on Remeron, which is not only an antidepressant, but would alsohelp improve her appetite and help her sleep. Ms. Williamson expressed her wish to start Prazosin, whichis appropriate. This aligner typewriter provided education surrounding orthostatic hypotension while taking this medication as it is an antihypertensive. Also discussed utilizing her already prescribed Lyrica touse as needed for anxiety, which she was agreeable to. Ativan should not be prescribed outpatient as there are concerns regarding sedation and its similarity to the effects of ETOH. Diagnosis: [place] I : MARIZOL, MDD [place] II : Deferred [place] III : Patient Active Problem List Diagnosis [...] Tobacco use Z72.0 ??? Unstable angina I20.0 [place] IV : Co-morbid medical condition; psychosocial stressors Plan/Recommendations: 1) Lyrica 50mg PO TID PRN for anxiety 2) Prazosin 1mg PO QHS 3) List of resources for outpatient therapy in discharge summary 4) Psychiatry will continue to follow during admission Recommendations were communicated to primary crab steamer Coding Determination Complexity of MDM Determination: [place] [...] CPT CODE PF PF Straightforward 3200 / 01395 EPF EPF Straightforward 3210 / 72409 D D Low 3220 / 33017 C C Moderate 3230 / 20769 C C High x 3240 / 67829 * Plan of Care - Bindu Smith [...] chx pain, MD aware, medications administered see MAR, EKG obtained.VSS. NSR/SB on telemetry. PLAN MOVING [...] breath. 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 Social & Family Supports/Community Resources: Friends and family/Father in [facility] History: A little depresssed Substance Use/Abuse: 8-10 cigarettes per day/2-3 glasses wine 3x per week/Marijuana 2x month Other Pertinent/Service Specific Information: None Health/Prescription Coverage: Primary Insurance: MEDICARE Secondary Insurance: MEDICAID [place] Prescription Coverage: Yes Preferred Pharmacy: [facility] Other: No Primary Care Provider: Asya Hand MD [phone] Patient/Caregiver Goals of Treatment: Find out why [...] transition of care planning. JEFF Chapman Pager: [phone] * Plan of Care - Bindu Smith [...] telemetry. PLAN MOVING FORWARD: Continue to monitor. lab asst today? INDIVIDUALIZED FALL PREVENTION INTERVENTIONS: Patient-specific fall [...] Procedure Name Priority Date/Time Associated Diagnosis Comments ENGAGEMENT LIAISON SCAN 08/18/2017 12:00 AM EST HEMOGRAM Routine 08/17/2017 8:31 AM EST DIFFERENTIAL, AUTOMATED Routine 08/17/20 8:31 AM EST CARDIAC ENZYMES ([facility]) Routine 08/17/2017 8:31 AM EST CBC (WITH DIFF) Routine 08/17/2017 8:31 AM EST MAGNESIUM Routine 08/17/2017 8:31 AM EST HEPATIC FUNCTION PANEL Routine 7 8:31 AM EST BASIC METABOLIC PANEL (NON-FASTING) Routine 08/17/2017 8:31 AM EST EKG 12-LEAD STAT 08/17/2017 5:28 AM EST ACS (acute coronary syndrome) CARDIAC CATHETERIZATION Routine 08/16/20 2:47 PM EST APTT STAT 08/16/2017 12:33 PM EST CARDIAC ENZYMES ([facility]) Routine 08/16/2017 11:00 AM EST ECHO LMTD W/O CONTRAST W LMTD SPEC DOPP COLOR DOPP Routine 08/16/2017 7:40 AM EST ACS (acute coronary syndrome) EKG 12-LEAD STAT 08/16/2017 5:29 AM EST ACS (acute coronary syndrome) HEMOGRAM Routine 08/16/2017 4:21 AM EST DIFFERENTIAL, AUTOMATED Routine 08/16/20 4:21 AM EST CARDIAC ENZYMES ([facility]) Routine 08/16/2017 4:21 AM EST APTT STAT [...] in this encounter Results * SCAN DOC: ENGAGEMENT LIAISON (08/18/2017 12:00 AM EST) Anatomical Region Laterality [...] MD CHEMISTRY ORDERABLES [facility] [place] [address] * Differential, Automated (08/17/2017 8:31 AM EST) Neutrophils % 59.5 % [facility] Neutr Abs (ANC) 4.33 1.70 - 6.10 x10(3)/[facility] LABORATORY Lymphocytes % 25.5 % [facility] Lymphocytes Abs 1.9 0.9 - 3.2 x10(3)/[facility] LABORATORY Monocytes % 11.0 % [facility] Monocyte Abs 0.8 0.3 - 0.9 x10(3)/[facility] LABORATORY Eosinophils % 3.2 % [facility] Eosinophils Abs 0.2 0.0 - 0.4 x10(3)/[facility] LABORATORY Basophils % 0.5 % [facility] Basophils Abs 0.0 0.0 - 0.1 x10(3)/[facility] LABORATORY Immature Gran % 0.30 % [facility] Comment: Immature granulocytes(IG's)percentage and absolute count will include metamyelocytes, myelocytes, and promyelocytes. Blood smears from CBCs yielding IG's will be scanned manually for concordance. If this scan disagrees with the automated IG or if promyelocytes are noted, a manual differential will be performed. Patsy Gran Abs 0.02 0.00 - 0.04 x10(3)/[facility] LABORATORY Blood specimen (specimen) 08/17/2017 8:31 AM EST 08/17/2017 8:45 AM EST Narrative Resulting Agency Comment Spec In Lab Pankaj Valerio MD HEMATOLOGY ORDERABLE S [facility] [place] [address] * (ABNORMAL) Hemogram (08/17/2017 8:31 AM EST) WBC 7.3 4.0 - 9.5 x10(3)/[facility] LABORATORY RBC 5.49(H) 4.00 - 5.21 x10(6)/[facility] LABORATORY Hemoglobin 16.5(H) 11.7 - 15.5 gm/dL [facility] Hematocrit 48.3(H) 35.7 - 45.8 % [facility] MCV 88.0 82.6 - 94.4 [facility] LABORATORY MCH 30.1 27.1 - 32.0 pg [facility] MCHC 34.2 31.7 - 35.0 gm/dL [facility] Platelets 161 145 - 357 x10(3)/[facility] RDWSD 46.3(H) 37.0 - 46.0 [facility] LABORATORY RDWCV 14.3(H) 11.5 - 14.1 % [facility] MPV 10.3 7.6 - 12.9 [facility] LABORATORY nRBC % Auto 0.0 % [facility] nRBC Abs Auto 0.000 0.000 - 0.000 x10(3)/[facility] LABORATORY Blood specimen (specimen) 08/17/2017 8:31 AM EST 08/17/2017 8:45 AM EST Narrative Resulting Agency Comment Spec In Lab Pankaj Valerio MD HEMATOLOGY ORDERABLE S Performing Organization Address [facility] Co de Phone Number [facility] [place] [address] * Magnesium (08/17/2017 8:31 AM EST) Magnesium 0.74 0.69 - 1.07 mmol/L [facility] Blood specimen (specimen) 08/17/2017 8:31 AM EST 08/17/2017 8:45 AM EST Narrative Resulting Agency Comment Spec In Lab Pankaj Valeiro MD CHEMISTRY ORDERABLES Performing Organization Address [facility] de Phone Number [facility] [place] [address] * Basic Metabolic Panel (non-fasting) (08/17/2017 8:31 [...] LABORATORY Comment:result rechecked-SV Estimated GFR >60 >=60 [facility] Comment: The reported eGFR should be multiplied by 1.2 for patients. The MDRD is not an appropriate measure of renal function for patients with body mass extremes or in patients with acute kidney failure. http://Crowdery/DHnkdep http://Crowdery/DHMCnkf Blood specimen (specimen) 08/17/2017 8:31 AM EST 08/17/2017 8:45 AM EST Narrative Resulting Agency Comment Spec In Lab Pankaj Valerio MD CHEMISTRY ORDERABLES [facility] [facility] [place] [address] * Cardiac Enzymes (LEB/CGP) (08/17/2017 8:31 AM [...] meets the diagnosis for a myocardial infarction (OH). Detection of a rise and/or fall of cTnT, with at least one value greater than the 99th percentile (> or = 0.01) and with at least one of the following ?? Symptoms of ischemia ?? New or presumed new significant HM-vvhxsum-W wave (ST-T) changes or new left bundle [...] additional sample may be indicated. Reference: Third Deaver Definition of Myocardial Infarction. Journal of the [place] [employer] 2012;60:1581-98 CK, Total 37 0 - 160 unit/L [facility] Blood specimen (specimen) 08/17/2017 8:31 AM EST 08/17/2017 8:45 AM EST Narrative Resulting Agency Comment Spec In Lab Pankaj Valerio MD CHEMISTRY ORDERABLES [facility] [place] [address] * EKG 12 Lead (08/17/2017 5:28 AM EST) Ventricular rate 66 BPM MUSE SYSTEM Atrial Rate 66 BPM MUSE SYSTEM P-R Interval 160 ms MUSE SYSTEM QRS Duration 78 ms MUSE SYSTEM Q-T Interval 414 ms MUSE SYSTEM QTC Calculated (Bezet) 434 ms MUSE SYSTEM Calculated P [place] 66 degrees MUSE SYSTEM Calculated R [place] 7 degrees MUSE SYSTEM Calculated T [place] 14 degrees MUSE SYSTEM INTERPRETATION Normal sinus rhythm RSR' or QR pattern in V1 suggests right ventricular conduction delay Borderline ECG When compared with ECG of 16-AUG-2017 05:29, No significant change was found Confirmed by MD Benitez, Sergo Rodriguez ([id number]) on 08/17/2017 4:02:25 PM MUSE SYSTEM 08/17/2017 5:28 AM EST 08/17/2017 4:02 PM EST Pankaj Valerio MD ECG ORDERABLES Performing Organization Address [facility]/State/ZIP Co de Phone Number MUSE SYSTEM * CARDIAC CATHETERIZATION (08/16/2017 2:47 PM EST) Anatomical Region Laterality Modality Other Narrative 08/25/2017 1:27 PM EST ?[facility] ? Cardiac Catheterization/Intervention Report ? Patient Name: Sahra Williamson. ? Procedure Date: 08/16/2017 ? A #: [id number] ? Primary Physician: Quiana Oconnor ? Case #: [id number] ? File Name: [id number] ? Catheterization Order Number: [id number] ? [facility] ? Final Report [place], [place] ? Patient Name: ? Sahra A. Williamson ? ID#: ?[id number] ? : ?1965 ? Procedure Date: ? August 16, 2017 ?Case #: ? [id number] ? Room: ? 6 ? Case Physician: ? Quiana Oconnor M.D. ? Start: ?14:20 ? Admission: ??08/12/2017 ? Referring ? Asya Hand M.D. ? Discharge: ??08/17/2017 ? Physicians: ?Manan Yacney M.D. ? Procedures: ?* Coronary Angiography ?* [...] presented with: unstable angina (w/i 60 days). [place] ?Cardiovascular Society angina class was IV. This [...] Procedure Note Quiana Oconnor MD - 12/22/2017 [facility] Cardiac Catheterization/Intervention Report Patient Name: Sahra WilliamsonFloresita Procedure Date: 08/16/2017 A #: [id number] Primary Physician: Quiana Oconnor Case #: [id number] File Name: [id number] Catheterization Order Number: [id number] [facility] FinalReport [place], [place] Patient Name: Sahra Rodriguez Jordyn ID#:[id number] :1965 Procedure Date: August 16, 2017 Case [...] presented with: unstable angina (w/i 60 days). [place] [employer] angina class was IV. This [...] (ABNORMAL) APTT (08/16/2017 12:33 PM EST) Pathologist [facility] PTT 116(H) 25 - 35 sec [facility] Comment: The recommended therapeutic range for full dose, unfractionated heparin at [facility] is 80 ? 114 seconds. The use of the anti-Xa (heparin) level rather than the PTT is recommended for monitoring anticoagulation intensity in critically ill patients receiving unfractionated heparin by continuous IV infusion. Blood specimen (specimen) 08/16/2017 12:33 PM EST 08/16/2017 12:41 PM EST Narrative Resulting Agency Comment Spec In Lab Pankaj Valerio MD HEMATOLOGY ORDERABLE S [facility] [place] [address] * Cardiac Enzymes (LEB/CGP) (08/16/2017 11:00 AM EST) [facility] Troponin-T <0.01 0.00 - 0.00 ng/mL [facility] Comment: The 99th percentile for Troponin T is less than 0.01 ng/mL, any detectable cTnT concentration using this assay should be considered elevated. According to the third universal definition of myocardial infarction the following criteria with a clinical presentation consistent with acute myocardial ischemia meets the diagnosis for a myocardial infarction (OH). Detection of a rise and/or fall of cTnT, with at least one value greater than the 99th percentile (> or = 0.01) and with at least one of the following ?? Symptoms of ischemia ?? New or presumed new significant FG-msgylon-F wave (ST-T) changes or new left bundle [...] additional sample may be indicated. Reference: Third Deaver Definition of Myocardial Infarction. Journal of the [place] [employer] 2012;60:1581-98 CK, Total 42 0 - 160 unit/L [facility] Blood specimen (specimen) 08/16/2017 11:00 AM EST 08/16/2017 11:18 AM EST Narrative Resulting Agency Comment Spec In Lab Pankaj Valerio MD CHEMISTRY ORDERABLES Performing Organization Address City/State/[facility] Co de Phone Number [facility] [place] [address] * ECHO LMTD W/O CONTRAST W LMTD SPEC DOPP COLOR DOPP (08/16/2017 7:40 AM EST) Anatomical Region Laterality Modality Other 08/16/2017 Narrative 08/16/2017 9:37 AM EST Procedure: ?Transthoracic Echocardiogram Patient: ?JORDYN Barnes ? (Age): 1965(52y) Med Rec#: ? [id number] ?Sex: ?F ? Site Loc: ? [facility] ?Ht / Wt: ??170(cm)/80(kg) Pt. Loc: ?Adult Floor ? BSA: ?1.92 Study Date: ?? 08/16/2017 ?Pt. Type: Inpatient Tape: ? Referring: Pankaj Valerio Reading: Sergo Marquis ([id number]) Manager Books: Leandra Cloud Diagnosis: *ICD-10-PCS Acute ischemic heart [...] E-wave Vmax ?0.7 ?m/sec ? MV deceleration [id number] ?msec ? MV A-wave Vmax ?0.5 ?m/sec [...] ? Mid-Inferior ?Normal ? Mid-Inferoseptal ?Normal ? [place]-Septal ? Normal ? [place]-Anterior ? Normal ? [place]-Lateral ?Normal ? [place]-Inferior ? Normal ? [place]-Tip ?Normal ? This report has been electronically signed by: Sergo Marquis MD ? 08/16/2017 09:36:46 Images reviewed and interpretation verified [facility] Procedure Note Sergo Marquis MD - 08/16/2017 Procedure: Transthoracic Echocardiogram Patient: JORDYN CERVANTES(Age): 1965(52y) [facility] Rec#: [id number] Sex: F Site Loc: [facility] Ht / Wt: 170(cm)/80(kg) Pt. Loc: Adult Floor BSA: 1.92 Study Date: 08/16/2017 Pt. Type: Inpatient Tape: Referring: Pankaj Valerio Reading: Sergo Marquis ([id number]) Manager Books: Leandra Cloud Diagnosis: *ICD-10-PCS Acute ischemic heart [...] MV E-wave Vmax 0.7 m/sec MV deceleration [id number] msec MV A-wave Vmax 0.5 m/sec MV [...] Normal Mid-Posterolateral Normal Mid-Inferior Normal Mid-Inferoseptal Normal [place]-Septal Normal [place]-Anterior Normal [place]-Lateral Normal [place]-Inferior Normal [place]-Tip Normal This report has been electronically signed by: Sergo Marquis MD 08/16/2017 09:36:46 Images reviewed and interpretation verified [facility] Pankaj Valerio MD ECHO ORDERABLES * EKG 12 Lead (08/16/2017 5:29 AM EST) Ventricular rate 53 BPM MUSE SYSTEM Atrial Rate 53 BPM MUSE SYSTEM P-R Interval 166 ms MUSE SYSTEM QRS Duration 88 ms MUSE SYSTEM Q-T Interval 468 ms MUSE SYSTEM QTC Calculated (Bezet) 439 ms MUSE SYSTEM Calculated P [place] 44 degrees MUSE SYSTEM Calculated R [place] 7 degrees MUSE SYSTEM Calculated T [place] -6 degrees MUSE SYSTEM INTERPRETATION Sinus bradycardia Otherwise normal ECG When compared with ECG of 16-AUG-2017 01:04, (unconfirmed) No significant change was found Confirmed by MD MCKEON ALAN ([id number]) on 08/16/2017 9:40:03 AM MUSE SYSTEM 08/16/2017 5:29 AM EST 08/16/2017 9:40 AM EST Pankaj Valerio MD ECG ORDERABLES Performing Organization Address [facility]/ZIP Co de Phone Number MUSE SYSTEM * (ABNORMAL) APTT (08/16/2017 4:21 AM EST) Pathologist [facility] PTT 151(Criti jewels) 25 - 35 sec [facility] Comment: Called by: RED, Read back by: JOSELO WEN, Date/Time:08/16/17 04:47. The recommended therapeutic range for full dose, unfractionated heparin at [facility] is 80 ? 114 seconds. The use of the anti-Xa (heparin) level rather than the PTT is recommended for monitoring anticoagulation intensity in critically ill patients receiving unfractionated heparin by continuous IV infusion. Blood specimen (specimen) 08/16/2017 4:21 AM EST 08/16/2017 4:29 AM EST Narrative Resulting Agency Comment Spec In Lab Pankaj Valerio MD HEMATOLOGY ORDERABLE S Performing Organization Address City/[facility]/ZIP Co de Phone Number [facility] [place] [address] * (ABNORMAL) Differential, Automated (08/16/2017 4:21 AM EST) Neutrophils % 80.8 % [facility] Neutr Abs (ANC) 6.93(H) 1.70 - 6.10 x10(3)/mc L [facility] Lymphocytes % 10.6 % [facility] Lymphocytes Abs 0.9 0.9 - 3.2 x10(3)/[facility] LABORATORY Monocytes % 7.8 % [facility] Monocyte Abs 0.7 0.3 - 0.9 x10(3)/[facility] Eosinophils % 0.1 % [facility] Eosinophils Abs 0.0 0.0 - 0.4 x10(3)/[facility] Basophils % 0.2 % [facility] Basophils Abs 0.0 0.0 - 0.1 x10(3)/[facility]AT[facility] Immature Gran % 0.50 % [facility] Comment: Immature granulocytes(IG's)percentage and absolute count will include metamyelocytes, myelocytes, and promyelocytes. Blood smears from CBCs yielding IG's will be scanned manually for concordance. If this scan disagrees with the automated IG or if promyelocytes are noted, a manual differential will be performed. Patsy Gran Abs 0.04 0.00 - 0.04 x10(3)/[facility] Blood specimen (specimen) 08/16/2017 4:21 AM EST 08/16/2017 4:29 AM EST Narrative Resulting Agency Comment Spec In Lab Pankaj Valerio MD HEMATOLOGY ORDERABLE S Performing Organization Address City/State/[facility] Co de Phone Number [facility] [place] [address] * (ABNORMAL) Hemogram (08/16/2017 4:21 AM EST) WBC 8.6 4.0 - 9.5 x10(3)/[facility] LABORATORY RBC 5.03 4.00 - 5.21 x10(6)/[facility]ATORY Hemoglobin 15.2 11.7 - 15.5 gm/dL [facility] Hematocrit 45.1 35.7 - 45.8 % [facility] MCV 89.7 82.6 - 94.4 fL [facility] MCH 30.2 27.1 - 32.0 pg [facility] MCHC 33.7 31.7 - 35.0 gm/dL [facility] Platelets 167 145 - 357 x10(3)/[facility] LABORATORY RDWSD 48.4(H) 37.0 - 46.0 fL [facility] RDWCV 14.7(H) 11.5 - 14.1 % [facility] MPV 10.4 7.6 - 12.9 fL [facility] nRBC % Auto 0.0 % [facility] nRBC Abs Auto 0.000 0.000 - 0.000 x10(3)/[facility]AT[facility] Blood specimen (specimen) 08/16/2017 4:21 AM EST 08/16/2017 4:29 AM EST Narrative Resulting Agency Comment Spec In Lab Pankaj Valerio MD HEMATOLOGY ORDERABLE S [facility] [place] [address] * Cardiac Enzymes (LEB/CGP) (08/16/2017 4:21 AM [...] meets the diagnosis for a myocardial infarction (OH). Detection of a rise and/or fall of cTnT, with at least one value greater than the 99th percentile (> or = 0.01) and with at least one of the following ?? Symptoms of ischemia ?? New or presumed new significant EO-zzlcrdw-E wave (ST-T) changes or new left bundle [...] additional sample may be indicated. Reference: Third Deaver Definition of Myocardial Infarction. Journal of the [place] [employer] 2012;60:1581-98 CK, Total 57 0 - 160 unit/L [facility] Blood specimen (specimen) 08/16/2017 4:21 AM EST 08/16/2017 4:29 AM EST Narrative Resulting Agency Comment Spec In Lab Pankaj Valerio MD CHEMISTRY ORDERABLES Performing Organization Address [facility] Co de Phone Number [facility] [place] [address] * EKG 12 Lead (08/16/2017 1:04 AM EST) Ventricular rate 50 BPM MUSE SYSTEM Atrial Rate 50 BPM MUSE SYSTEM P-R Interval 168 ms MUSE SYSTEM QRS Duration 88 ms MUSE SYSTEM Q-T Interval 512 ms MUSE SYSTEM QTC Calculated (Bezet) 466 ms MUSE SYSTEM Calculated P [place] 46 degrees MUSE SYSTEM Calculated R [place] 10 degrees MUSE SYSTEM Calculated T [place] 1 degrees MUSE SYSTEM INTERPRETATION Sinus bradycardia Otherwise normal ECG When compared with ECG of 15-AUG-2017 22:07, (unconfirmed) No significant change was found Confirmed by MD LINDA, [email or web address] ([id number]) on 08/16/2017 9:39:41 AM MUSE SYSTEM 08/16/2017 1:04 AM EST 08/16/2017 9:39 AM EST Pankaj Valerio MD ECG ORDERABLES Performing Organization Address City/[facility]/ZIP Co de Phone Number MUSE SYSTEM * (ABNORMAL) Differential, Automated (08/15/2017 10:36 PM EST) Neutrophils % 85.6 % [facility] Neutr Abs (ANC) 7.77(H) 1.70 - 6.10 x10(3)/mc L [facility] Lymphocytes % 6.6 % [facility] Lymphocytes Abs 0.6(L) 0.9 - 3.2 x10(3)/[facility] LABORATORY Monocytes % 7.3 % [facility] Monocyte Abs 0.7 0.3 - 0.9 x10(3)/[facility]ATORY Eosinophils % 0.0 % [facility] Eosinophils Abs 0.0 0.0 - 0.4 x10(3)/[facility] Basophils % 0.1 % [facility] Basophils Abs 0.0 0.0 - 0.1 x10(3)/[facility] Immature Gran % 0.40 % [facility] Comment: Immature granulocytes(IG's)percentage and absolute count will include metamyelocytes, myelocytes, and promyelocytes. Blood smears from CBCs yielding IG's will be scanned manually for concordance. If this scan disagrees with the automated IG or if promyelocytes are noted, a manual differential will be performed. Patsy Gran Abs 0.04 0.00 - 0.04 x10(3)/[facility] Blood specimen (specimen) 08/15/2017 10:36 PM EST 08/15/2017 10:41 PM EST Narrative Resulting Agency Comment Spec In Lab Pankaj Valerio MD HEMATOLOGY ORDERABLE S [facility] [place] [address] * (ABNORMAL) Hemogram (08/15/2017 10:36 PM EST) WBC 9.1 4.0 - 9.5 x10(3)/[facility] LABORATORY RBC 5.00 4.00 - 5.21 x10(6)/[facility]ATORY Hemoglobin 15.1 11.7 - 15.5 gm/dL [facility] Hematocrit 44.9 35.7 - 45.8 % [facility] MCV 89.8 82.6 - 94.4 fL [facility] MCH 30.2 27.1 - 32.0 pg [facility] MCHC 33.6 31.7 - 35.0 gm/dL [facility] Platelets 162 145 - 357 x10(3)/[facility] LABORATORY RDWSD 48.8(H) 37.0 - 46.0 fL [facility] RDWCV 14.8(H) 11.5 - 14.1 % [facility] MPV 9.9 7.6 - 12.9 fL [facility] nRBC % Auto 0.0 % [facility] nRBC Abs Auto 0.000 0.000 - 0.000 x10(3)/[facility]AT[facility] Blood specimen (specimen) 08/15/2017 10:36 PM EST 08/15/2017 10:41 PM EST Narrative Resulting Agency Comment Spec In Lab Pankaj Valerio MD HEMATOLOGY ORDERABLE S [facility] [place] [address] * Cardiac Enzymes (LEB/CGP) (08/15/2017 10:36 PM [...] meets the diagnosis for a myocardial infarction (OH). Detection of a rise and/or fall of cTnT, with at least one value greater than the 99th percentile (> or = 0.01) and with at least one of the following ?? Symptoms of ischemia ?? New or presumed new significant MZ-sworhzk-C wave (ST-T) changes or new left bundle [...] additional sample may be indicated. Reference: Third Deaver Definition of Myocardial Infarction. Journal of the [place] [employer] 2012;60:1581-98 CK, Total 69 0 - 160 unit/L [facility] Blood specimen (specimen) 08/15/2017 10:36 PM EST 08/15/2017 10:41 PM EST Narrative Resulting Agency Comment Spec In Lab Pankaj Valerio MD CHEMISTRY ORDERABLES Performing Organization Address [facility] Co de Phone Number [facility] [place] [address] * Prothrombin Time (08/15/2017 10:36 PM EST) PT 13.0 11.8 - 14.0 sec [facility] INR 1.0 0.9 - 1.1 [facility] Comment: An INR <2.0 indicates [...] MD HEMATOLOGY ORDERABLE S Performing Organization Address [facility] Co de Phone Number [facility] [place] [address] * (ABNORMAL) Hepatic Function Panel (08/15/2017 10:36 [...] Valerio MD CHEMISTRY ORDERABLES Performing Organization Address [facility]/ZIP Co de Phone Number [facility] [place] [address] * (ABNORMAL) pro-Brain Natriuretic Peptide (08/15/2017 10:36 PM EST) ProBNP 216(H) <=125 pg/mL [facility] Blood specimen (specimen) 08/15/2017 10:36 PM EST 08/15/2017 10:41 PM EST Narrative Resulting Agency Comment Spec In Lab Pankaj Valerio MD CHEMISTRY ORDERABLES Performing Organization Address City/[facility] Co de Phone Number [facility] [place] [address] * TSH (08/15/2017 10:36 PM EST) TSH 0.63 0.27 - 4.20 mlU/ML [facility] Blood specimen (specimen) 08/15/2017 10:36 PM EST 08/15/2017 10:41 PM EST Narrative Resulting Agency Comment Spec In Lab Pankaj Valerio MD CHEMISTRY ORDERABLES Performing Organization Address City/[facility]/ZIP Co de Phone Number [facility] [place] [address] * Magnesium (08/15/2017 10:36 PM EST) Magnesium 0.84 0.69 - 1.07 mmol/L [facility] Blood specimen (specimen) 08/15/2017 10:36 PM EST 08/15/2017 10:41 PM EST Narrative Resulting Agency Comment Spec In Lab Pankaj Valerio MD CHEMISTRY ORDERABLES [facility] [place] [address] * Basic Metabolic Panel (non-fasting) (08/15/2017 10:36 [...] [facility] Estimated GFR >60 >=60 [facility] Comment: The reported eGFR should be multiplied by 1.2 for patients. The MDRD is not an appropriate measure of renal function for patients with body mass extremes or in patients with acute kidney failure. http://Crowdery/DHnkdep http://Crowdery/DHMCnkf Blood specimen (specimen) 08/15/2017 10:36 PM EST 08/15/2017 10:41 PM EST Narrative Resulting Agency Comment Spec In Lab Pankaj Valerio MD CHEMISTRY ORDERABLES Performing Organization Address [facility] Co de Phone Number [facility] [place] [address] * (ABNORMAL) APTT (08/15/2017 10:36 PM EST) PTT 90(H) 25 - 35 sec [facility] Comment: The recommended therapeutic range for full dose, unfractionated heparin at [facility] is 80 ? 114 seconds. The use of the anti-Xa (heparin) level rather than the PTT is recommended for monitoring anticoagulation intensity in critically ill patients receiving unfractionated heparin by continuous IV infusion. Blood specimen (specimen) 08/15/2017 10:36 PM EST 08/15/2017 10:41 PM EST Narrative Resulting Agency Comment Spec In Lab Pankaj Valerio MD HEMATOLOGY ORDERABLE S Performing Organization Address [facility] de Phone Number [facility] [place] [address] * EKG 12 Lead (08/15/2017 10:07 PM EST) Ventricular rate 52 BPM MUSE SYSTEM Atrial Rate 52 BPM MUSE SYSTEM P-R Interval 162 ms MUSE SYSTEM QRS Duration 88 ms MUSE SYSTEM Q-T Interval 502 ms MUSE SYSTEM QTC Calculated (Bezet) 466 ms MUSE SYSTEM Calculated P [place] 41 degrees MUSE SYSTEM Calculated R [place] 1 degrees MUSE SYSTEM Calculated T [place] -2 degrees MUSE SYSTEM INTERPRETATION Sinus bradycardia RSR' or QR pattern in V1 suggests right ventricular conduction delay Borderline ECG When compared with ECG of 30-JUL-2017 07:20, No significant change was found Confirmed by MD MCKEON ALAN ([id number]) on 08/16/2017 9:38:36 AM MUSE SYSTEM 08/15/2017 10:0 7 PM EST 08/16/2017 9:38 AM EST Pankaj Valerio MD ECG ORDERABLES [place] [facility] documented in this encounter Visit Diagnoses Diagnosis ACS (acute coronary syndrome) Intermediate coronary syndrome Unstable angina Intermediate coronary syndrome documented in this encounter Admitting Diagnoses Diagnosis Unstable angina Intermediate coronary syndrome documented in this encounter Administered Medications Inactive Administered Medications - up to 3 most recent administrations Medication Order MAR Action Action Date Dose Rate Site acetaminophen (TYLENOL) tablet 650 mg 650 mg, Oral, ONCE, 1 dose, On Tue08/16/17 at 1000, Maximum dose of acetaminophen is 4000 mg from all sources in 24 hours., Routine Given 08/16/2017 9:57 AM EST 650 mg alum-mag hydroxide-simeth (MAALOX) 200-200-20 mg/5 mL oral suspension 10 mL 10 mL, Oral, ONCE, 1 dose, On Tue08/17/17 at 1015, Routine Given 08/17/2017 10:14 AM EST 10 mLs amLODIPine (NORVASC) tablet 5 mg 5 mg, Oral, DAILY, First dose on Tue08/16/17 at 1700, Until Discontinued, Routine Given 08/17/2017 7:18 AM EST 5 mg Given 08/16/2017 4:57 PM EST 5 mg aspirin chewable tablet 324 mg 324 mg, Oral, ONCE, 1 dose, On Tue08/16/17 at 0000, STAT Given 08/15/2017 11:51 PM EST 324 mg aspirin chewable tablet 81 mg 81 [...] Given 08/16/2017 8:33 AM EST 75 mg diphenhydrAMINE/aluminum-magnesium hydroxide with simethicone/lidocaine (BMX) oral suspension 5 mL, Oral, ONCE, 1 dose, On 11/22/17 at 1030, Each 5 mL contains equal parts of diphenhydramine (BENADYL), aluminum-magnesium hydroxide w/ simethicone (MAALOX), and lidocaine (XYLOCAINE) , Routine Given 08/17/2017 10:24 AM EST 5 mLs enoxaparin (LOVENOX) injection 40 mg 40 mg, Subcutaneous, NIGHTLY, First dose on Tue08/17/17 at 2100, Until Discontinued, Routine FLUoxetine (PROzac) capsule 40 mg 40 mg, Oral, DAILY, First dose on Tue08/16/17 at 0900, Until Discontinued, Routine Given 08/17/2017 8:3 5 AM EST 40 mg Given 08/16/2017 8:33 AM EST 40 mg FLUoxetine (PROzac) capsule 60 mg 60 mg, Oral, DAILY, First dose (after last modification) on Raissa 08/18/17 at 0900, Until Discontinued, Routine heparin 25,000 units in dextrose 5% 500 mL infusion 0-5,000 Units/hr (0-100 mL/hr), Intravenous, CONTINUOUS, Starting [...] Indication: ACS (STEMI vs NSTEMI vs UA) Rate/Dose Change 08/16/2017 1:38 PM EST 600 Units/hr 12 mL/hr Rate/Dose Change 08/16/2017 6:07 AM EST 700 Units/hr 14 mL /hr New Bag 08/15/2017 10:37 PM EST 950 Units/hr 19 mL/hr ipratropium-albuterol (DUONEB) 0.5 mg-3 mg(2.5 mg base)/3 mL nebulizer solution 3 mL 3 mL, Nebulization, EVERY 4 HOURS PRN, Starting on Tue08/15/17 at 2303, Until Tue08/17/17 at 2013, Wheezing, Routine Given 08/17/2017 2:41 PM EST 3 mLs Given 08/17/2017 6:04 AM EST 3 mLs lamoTRIgine (LaMICtal) tablet 150 mg 150 mg, Oral, DAILY, First dose on Tue08/16/17 at 0900, Until Discontinued, Routine Given 08/17/2017 8:3 5 AM EST 150 mg Given 08/16/2017 8:32 AM EST 150 mg LORazepam (ATIVAN) injection 1 mg 1 mg, Intravenous, ONCE, 1 dose, On Tue08/17/17 at 1100, Routine Given 08/17/2017 11:40 AM EST 1 mg LORazepam (ATIVAN) tablet 0.5 mg 0.5 [...] Given 08/17/2017 11:40 AM EST 12.5 mg montelukast (SINGULAIR) tablet 10 mg 10 mg, Oral, NIGHTLY, First dose (after last modification) on Tue08/16/17 at 2100, Until Discontinued, Routine Given 08/16/2017 8:43 PM EST 10 mg morphine 2 mg/mL carpuject 2 mg 2 mg, Intravenous, ONCE, 1 dose, On Tue08/15/17 at 2300, STAT Given 08/15/2017 10:45 PM EST 2 mg morphine 2 mg/mL carpuject 2 mg 2 mg, Intravenous, ONCE, 1 dose, On Tue08/17/17 at 0615, STAT Given 08/17/2017 5:54 AM EST 2 mg morphine 2 mg/mL carpuject 4 mg 4 mg, Intravenous, ONCE, 1 dose, On Tue08/16/17 at 0600, STAT Given 08/16/2017 6:02 AM EST 4 mg morphine 2 mg/mL carpuject 4 mg 4 mg, Intravenous, ONCE, 1 dose, On Tue08/17/17 at 0645, STAT Given 08/17/2017 6:21 AM EST 4 mg morphine 2 mg/mL carpuject 4 mg 4 mg, Intravenous, ONCE, 1 dose, On Tue08/17/17 at 0730, Routine Given 08/17/2017 8:00 AM EST 4 mg morphine 2 mg/mL carpuject 1 dose, Starting on Tue08/17/17 at 0549, Until Tue08/17/17 at 0554, VALORIE CHERRY: cabinet override morphine 4 mg/mL carpuject 4 mg 4 mg, Intravenous, ONCE, 1 dose, On Tue08/15/17 at 2330, STAT Given 08/15/2017 11:30 PM EST 4 mg nicotine (NICODERM CQ) 14 mg/24 hr [...] 08/17/2017 5:30 AM EST 0.4 mg nitroGLYcerin 50 mg in dextrose 5% 250 mL infusion 30 mcg/min (9 mL/hr), Intravenous, CONTINUOUS, Starting on Tue08/15/17 at 2245, Until Tue08/17/17 at 2012, Maximum dose: 200 mcg/min, Routine Rate/Dose Change 08/16/2017 12:45 AM EST 30 mcg/min 9 mL/hr Rate/Dose Change 08/15/2017 11:06 PM EST 40 mcg/min 12 mL/ hr New Bag 08/15/2017 10:36 PM EST 30 mcg/min 9 mL/hr ondansetron (ZOFRAN) injection 4 mg 4 mg, Intravenous, ONCE, 1 dose, On Tue08/17/17 at 0615 Given 08/17/2017 6:15 AM EST 4 mg prazosin (MINIPRESS) capsule 1 mg 1 mg, Oral, NIGHTLY, First dose on Tue08/17/17 at 2100, Until Discontinued, Routine pregabalin (LYRICA) capsule 50 mg 50 mg, Oral, DAILY, First dose (after last modification) on Raissa 08/18/17 at 0900, Until Discontinued, Routine pregabalin (LYRICA) capsule 75 mg 75 mg, Oral, DAILY, First dose on Tue08/16/17 at 0900, Until Discontinued, Routine Given 08/17/2017 8:35 AM EST 75 mg Given 08/16/2017 8:34 AM EST 75 mg sodium chloride 0.9 % flush 5 mL 5 mL, Intravenous, 2 TIMES DAILY, First dose on Tue08/15/17 at 2245, Until Discontinued, Routine Given 08/17/2017 9:00 AM EST 5 mLs Given 08/16/2017 9:00 PM EST 5 mLs Given 08/15/2017 10:48 PM EST 5 mLs sodium chloride 0.9% infusion 100 mL/hr, Intravenous, CONTINUOUS, Starting on Tue08/16/17 at 1515, Until Tue08/16/17 at 1914, Recovery (Recovery-Hospital Unit) Continued Bag 08/16/2017 3:15 PM EST 100 mL/hr 100 mL/hr documented in this encounter Active and [...] area)1612 ([facility] Unhold - Provider: Admin Adt) 0835 (Given - Provider: Sindhu Scott RN) atorvastatin (LIPITOR) tablet 40 mg 40 mg, Oral, EVERY EVENING, First dose on Tue08/16/17 at 1700, Until Discontinued, Routine 1402 ([facility] Hold - Provider: Admin Adt - Reason: Transfer to a Procedural area)1612 ([facility] Unhold - Provider: Admin Adt)1657 (Given - Provider: Dior Galan RN) 1700 (Due - Provider: Admin Adt) clopidogrel (PLAVIX) tablet 75 mg 75 mg, Oral, DAILY, First dose on Tue08/16/17 at 0900, Until Discontinued, Routine 0833 (Given - Provider: Dior Galan RN)1402 ([facility] Hold - Provider: Admin Adt - Reason: Transfer to a Procedural area)161 ([facility] Unhold - Provider: Admin Adt) 0835 (Given - Provider: Sindhu Scott, KOREY) diphenhydrAMINE/aluminum -magnesium hydroxide with simethicone/lidocaine (BMX) oral [...] (Given - Provider: Dior Galan RN)1402 ([facility] Hold - Provider: Admin Adt - Reason: Transfer to a Procedural area)161 ([facility] Unhold - Provider: Admin Adt) 0835 (Given - Provider: Sindhu Scott RN) FLUoxetine (PROzac) capsule 60 mg 60 mg, Oral, DAILY, First dose (after last modification) on Tue08/18/17 at 0900, Until Discontinued, Routine lamoTRIgine (LaMICtal) tablet 150 mg 150 mg, Oral, DAILY, First dose on Tue08/16/17 at 0900, Until Discontinued, Routine 0832 (Given - Provider: Dior Galan RN)1402 ([facility] Hold - Provider: Admin Adt - Reason: Transfer to a Procedural area)1612 ([facility] Unhold - Provider: Admin Adt) 0835 (Given - Provider: Sindhu Scott, KOREY) LORazepam (ATIVAN) injection 1 mg (COMPLETED) 1 mg, Intravenous, ONCE, 1 dose, On Tue08/17/17 at 1100, Routine 1140 (Given - Provid er: Sindhu Scott RN) melatonin tablet 6 mg 6 mg, Oral, NIGHTLY, First dose on Tue08/15/17 at 2345, Until Discontinued, Routine 2343 (Given - Provider: Bindu Ahumada RN) 1402 ([facility] Hold - Provider: Admin Adt - Reason: Transfer to a Procedural area)1612 ([facility] Unhold - Provider: Admin Adt)204 (Given - Provider: Bindu Ahumada RN) meTOPROLOL [...] not met - Comment: HR 49)1402 ([facility] Hold - Provider: Admin Adt - Reason: Transfer to a Procedural area)1612 ([facility] Unhold - Provider: Admin Adt)1800 [...] Tue08/16/17 at 2100, Until Discontinued, Routine 1402 ([facility] Hold - Provider: Admin Adt - Reason: Transfer to a Procedural area)1612 ([facility] Unhold - Provider: Admin Adt)2043 (Given - Provider: Bindu Ahumada RN) morphine 2 mg/mL carpuject 2 mg (COMPLETED) 2 mg, Intravenous, ONCE, 1 dose, On Tue08/15/17 at 2300, STAT 2245 (Given - Provider: Bindu Ahumada RN) morphine 2 mg/mL carpuject 2 mg (COMPLETED) 2 mg, Intravenous, ONCE, 1 dose, On Tue08/17/17 at 0615, STAT 0554 (Given - Provid er: Valorie Cherry RN) morphine 2 mg/mL carpuject 4 mg [...] area)1612 ([facility] Unhold - Provider: Admin Adt) 0900 (Not Given - Provider: Sindhu Scott RN - Reason: Patient/family refused) nicotine (NICODERM CQ) 14 mg/24 hr patch Patch Removal(Linked Group 1) Transdermal, DAILY, First dose on Tue08/16/17 at 0900, Until Discontinued, Remove nicotine 14 mg/24 hr patch 0900 (Patch Not Removed (add comment) - Provider: Dior Galan RN - Comment: patch not placed previously)1402 ([facility] Hold - Provider: Admin Adt - Reason: Transfer to a Procedural area)161 ([facility] Unhold - Provider: Admin Adt) 0900 (Patch [...] See comment - Comment: patch not placed previously)140 ([facility] Hold - Provider: Admin Adt - Reason: Transfer to a Procedural area)161 ([facility] Un[facility] - Provider: Admin Adt)2100 (Patch (dose [...] Procedural area)161 ([facility] - Provider: Admin Adt) 0835 (Given - Provider: Sindhu Scott RN) sodium chloride 0.9 % flush 5 mL 5 mL, Intravenous, 2 TIMES DAILY, First dose on Tue08/15/17 at 2245, Until Discontinued, Routine 2248 (Given - Provider: Bindu Ahumada RN) 0900 (Not Given - Provider: Dior Galan RN - Reason: See comment - Comment: given earlier)1402 ([facility] Hold - Provider: Admin Adt - Reason: Transfer to a Procedural area)1612 ([facility] Unhold - Provider: Admin Adt)2100 (Given - Provider: Bindu Ahumada RN) 0900 (Given - Provider: Sindhu Scott RN) Continuous Medication Order 08/15/2017 08/16/2017 08/17/2017 heparin [...] area)1612 ([facility] Unhold - Provider: Admin Adt) nitroGLYcerin 50 mg in dextrose 5% 250 mL infusion 30 mcg/min (9 mL/hr), Intravenous, CONTINUOUS, Starting on Tue08/15/17 at 2245, Until Tue08/17/17 at 2013, Maximum dose: 200 mcg/min, Routine 2236 (New Bag - Provider: Bindu Ahumada RN)2306 (Rate/Dose Change - Provider: Bindu Ahumada RN) 0045 (Rate/Dose Change - Provider: Bindu Ahumada RN)1402 ([facility] Hold - Provider: Admin Adt - Reason: Transfer to a Procedural area)1612 ([facility] Unhold - Provider: Admin Adt) sodium chloride [...] Routine 1403 (Given - Provider: Yusuf López, KOREY)1409 (Given - Provider: Sonia Colunga, KOREY)1416 (Given [...] area)1612 ([facility] Un[facility] - Provider: Admin Adt) 0604 (Given [...] area)1612 ([facility] - Provider: Admin Adt) LORazepam (ATIVAN) tablet 0.5 mg 0.5 mg, Oral, EVERY 6 HOURS PRN, Starting on Tue08/17/17 at 1044, Until Tue08/17/17 at 2013, Anxiety, Routine midazolam (PF) (VERSED) 1 mg/mL multi-dose injection (CANCELED) ONCE PRN, Starting on Tue08/16/17 at 1359, Until Tue08/16/17 at 1610, Cath (Intra-Procedure), Routine 1403 (Given - Provider: Yusuf López, KOREY)1411 (Given - Provider: Sonia Colunga, KOREY)1416 (Given - Provider: Sonia Colunga, KOREY)1418 (Given - Provider: Sonia Colunga, KOREY) nitroGLYcerin (NITROSTAT) SL tablet 0.4 mg 0.4 [...] area)1612 ([facility] Un[facility] - Provider: Admin Adt) 0530 (Given - Provider: Bindu Ahumada RN)0540 (Given - Provider: Valorie Cherry RN) nitroGLYcerin 100 mcg/mL intracoronary dilution (CANCELED) ONCE PRN, Starting on Tue08/16/17 at 1421, Until Tue08/16/17 at 1610, Cath (Intra-Procedure), Routine 1421 (Given - Provider: Wendie Miranda)1435 (Given - Provider: Vivi Kathleen MD) sodium chloride 0.9 % flush 5-20 mL 5-20 mL, Intravenous, EVERY 1 MIN PRN, Starting on Tue08/15/17 at 2228, Until Tue08/17/17 at 2013, flush, Flush pertains to all indwelling lines. Flush per protocol found in the job aid using the link provided on this medication record., Routine 1402 ([facility] Hold - Provider: Admin Adt - Reason: Transfer to a Procedural area)1612 ([facility] Unhold - Provider: Admin Adt) sodium chloride 0.9% infusion (CANCELED) CONTINUOUS PRN, Starting on Tue08/16/17 at 1440, Until Tue08/16/17 at 1610, Cath (Intra-Procedure) 1440 (New Bag - Provider: Sonia Colunga RN) No Frequency Medication Order 08/15/2017 08/16/2017 08/17/2017 ondansetron (ZOFRAN) 4 mg/2 mL injection 1 dose, Starting on Tue08/17/17 at 0557, Until Tue08/17/17 at 1759, VALORIE CHERRY: cabinet override 0600 (Not Given - Pr [...] UA) documented in this encounter Care Teams Filter Filler Relationship Specialty Start Date End Date Asya Hand MD [address] [place] [id number] PCP - General Oncology 06/11/16 08/09/19 documented as of this encounter
--- OUTSIDE RECORDS SUMMARY | 2024-04-13 11:20 | XMS_ITS | Encounter Summary ---
Author Organization Formerly [facility] Address [facility] [place] [address] Care Team Providers Care Box Toe Stitcher Name Role Phone Asya Hand MD Primary Care Provider [phone] Reason for Visit * Auth/Cert Specialty Diagnoses / Procedures Referred By Maurisio bergman Referred To Contact Diagnoses NSTEMI (non-ST elevated myocardial infarction) NSTEMI ( MARICHUY 144) ?CAD Procedures CARDIAC CATHETERIZATION Referral ID Status Reason Start Date Expiration Date Visits Re quested Visits Authorized [id number] 1 1 Encounter Details Date Type Department Care Team (Latest Contact Info) Description 07/29/2017 3:10 PM EDT - 07/30/2017 3:47 PM EDT Hospital Encounter Inter[place] [address] Neo Rodriguez MD [facility] [address] Vinh Henderson MD [facility] [place] [address] Coronary artery disease, angina presence unspecified, unspecified vessel or lesion type, unspecified whether hughes or transplanted heart Discharge Disposition: Home Social History Tobacco Use [...] Sign Reading Time Taken Comments Blood Pressure 129/63 07/30/2017 11:23 AM EDT Pulse 65 07/30/2017 11:23 AM EDT Temperature 37.4 ??C (99.3 ??F) 07/30/2017 11:23 AM E DT Respiratory Rate 16 07/30/2017 11:23 AM EDT Oxygen Saturation 92% 07/30/2017 11:23 AM EDT Inhaled Oxygen Concentration - - Weight 80.1 kg (176 lb 9.4 oz) 07/30/2017 5:21 A M EDT Height 170.2 cm (5' 7) 07/29/2017 3:30 PM EDT Body Mass Index 27.66 07/29/2017 3:30 PM EDT documented in this encounter Discharge Summaries * Wyatt Coreas MD - 07/29/2017 3:30 PM EDT Inpatient - Discharge Summary Patient Name: Sahra Williamson Patient Age: 52 y.o. Birthdate: 1965 Admit date: 07/29/2017 Discharge date and time: 07/30/2017 1300 Attending Physician: No att. providers found Follow-up Recommendations for Providers: Please continue ASA indefinitely. Continue lipitor as tolerated Plavix for one year until 07/30/2018 Titrate metoprolol as needed. Consider adding ACEI. There was a positive opioid and meth on urine drug screen. Patient had a shared room and family were here at time of discharge. We did not explore any activity deeply. Discharge Diagnoses (Hospital Problems) and Secondary Diagnoses (Chronic Problems): Active Hospital Problems Diagnosis ??? NSTEMI (non-ST elevated myocardial infarction) ??? Coronary artery disease 02/05/2016 Coronary angiogram at [facility]: LAD mid 50%, OM1 long 40%, RCA mid 50%. ??? Positive urine drug screen for amphetamines, opiates, buprenorphine on admission ??? Tobacco use ??? Hypertension ??? Hyperlipidemia ??? Chest pain Resolved Hospital Problems Diagnosis Date Resolved No resolved problems to display. Active Non-Hospital Problems Diagnosis ??? Anxiety ??? Cerebrovascular accident (CVA) ??? Tobacco dependence syndrome ??? Headache, chronic daily ??? History of seizure ??? Current smoker 35+yrs ??? Depression ??? 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 Chronic pain ??? Migraine ??? Cervical spondylosis ??? PRES (posterior reversible encephalopathy syndrome) Operations/Major Procedures: Operations: Procedure(s) with comments: CARDIAC CATHETERIZATION - Procedure: LHC and coronary angiography Other Major Procedures: none History of Presentation per Dr. Vizcaino's note: Ms. Williamson presents in transfer from [facility] with chest pain, now transferred for further management of NSTEMI. ?? On the morning of presentation Ms. Williamson was awoken from sleep at 5:30 am by a stabbing, burning, piercing, crushing chest pain. It lasted without abating for several hours and she arrived at [facility]. She reports that for the past several weeks she has been feeling off and has been unable to go for walks and be as active as she would like. She has noted diminished exercise tolerance with dyspnea on exertion, occasionally with subsequent chest pain, which improves with rest. She has noticed swelling in her legs for the past five to six months, though reports losing weight. She denies orthopnea or paroxysmal nocturnal dyspnea. No relief with position changes. She does note it worsens with change in position from sitting to standing. It is not worsened with deep inspiration. She denies cough or fevers other than her regular smoker's cough. She has been taking care of young grandchildren aged 5 and 7, both of whom were sick in the past month with respiratory infections and ear infections. She overall reports profound fatigue. She reports that she has intermittently had chest discomfort which floors her without a predictable pattern. ?? On arrival at [facility] Ms. Williamson's vitals were normal temperature, pulse 58. She was given sublingual nitroglycerin which provoked a horrendous headache but did little for the pain, pantoprazole, and a GI cocktail which she feels helped. Initial EKG showed known T-wave inversions in V2-V4,subsequent EKG showed new T wave inversions in the inferior leads and normalization of the T wave inversions in the anterior leads. No diagnostic ST segment elevations on either EKG. A creatinine was0.9. A urine toxicology screen was positive for methamphetamines. She was treated with a heparin bolus and infusion. [facility] cardiology was contacted for further evaluation and management of acute coronary syndrome and transfer arranged. ?? She did not receive loading doses of aspirin or clopidogrel prior to transfer. ?? On arrival she endorses pain of 6 out of 10 at rest. She has had continuous chest pain since awakening. Morphine has provided incomplete relief. Hospital Course: Admitted for NSTEMI on 07/29. She then went to medical lab director and received MARY to her RCA as well as MARY to her LAD. She remained stable during monitored recovery. Her cath site was monitored for bleeding, hematoma and distal pulses when remained normal. Important Studies and Lab Data: Labs: Recent Labs 07/30/1761907/29/17 1825 WBC 7.7 9.0 HGB 16.4* 15.5 HCT 48.4* 47.7* PLATELET 180 194 Recent Labs 07/30/1761907/29/17 1825 NA 138 139 K 4.3 4.6 CL 102 102 CO2 27 26 BUN 11 13 CREATININE 0.87 0.88 No results for input(s): AST, ALT, ALKPHOS, BILITOT, BILIDIR in the last 168 hours. Recent Labs 07/30/1761907/29/17 1825 CALCIUM 8.7 8.6 8.6 Recent Labs 07/29/17 1700 PTT >160.0* Recent Labs 07/30/17 0607/29/17 2339 07/29/17 1825 CK 162* 178* 193* TROPONINT 0.13* 0.22* 0.17* Studies: Cath Procedures: * Coronary Angiography * Left Heart Catheterization * Coronary Stent Insertion * Vascular Closure Device Deployment * Access Site Angiography ? History Sahra Williamson is a 52 year old woman. She has hypertension and a family history of coronary artery disease. The patient has a history of smoking and is still smoking. She has untreated hypercholesterolemia. The patient has unstable angina, unknown troponin, a history of chest pain and a prior history of coronary artery disease. She has a remote cerebral vascular accident. The patient has a history of chronic obstructive pulmonary disease. She also has a history of an abnormal EKG. Prior to the initiation of this procedure, the patient was designated as ASA Class IV. ? Patient Status at Catheterization: The patient presented with: unstable angina (w/i 60 days). [place] [employer] angina class was III. This patient was on beta blockers prior to the procedure. No stress or imaging studies were performed prior to this procedure ? Technique: A 6Fr sheath was inserted in the right femoral artery utilizing the Seldinger technique. The left coronary artery was injected utilizing a 5Fr JL 4 catheter. A 5Fr 3DRC catheter was used to inject the right coronary artery. Left ventricular pressure was performed with a 5Fr Angled pigtail catheter. Coronary stent insertion was performed and the equipment utilized will be described in the intervention summary section. 6,000 units of heparin were administered. A total of 200cc of Omnipaque were opened, 155cc of Omnipaque were administered and 45cc of Omnipaque were wasted. Radiation: Fluoro time was 7.4 minutes, dose area product was 74,967 mGYcm2 and air kerma was 1,118 mGY. ? The patient received the following medications prior to and during the procedure: Aspirin (any), Clopidogrel and Unfractionated Heparin (any). ? Hemodynamics: Left Heart Pressures Resting: Syst Diast EDP a v m Ao 111 65 85 LV 105 15 ? Coronary Angiography: Dominance: Right ? Left Main The left [...] of the distal segment of the RCA. ? Indication for Intervention: Coronary intervention was indicated for treatment of high risk unstable angina. Left Ventricular Ejection fraction was not assessed. The priority for the procedure was Urgent. The [facility] indication for the procedure was PCI for high risk Non-STEMI or unstable angina. ? Intervention Summary: Left Anterior Descending Artery Mid 75% Stent insertion was performed on the 75% stenosis in the mid segment of the LAD. This was a de neeraj lesion. According to the ACC/AHA classification system, this lesion was a type B2 high risk lesion. Primary prevention of restenosis was the indication for stent insertion. Vessel flow pre intervention was TANIKA 3. ? Stent insertion was accomplished through a 6 Fr. EBU 4.0 guide. The lesion was predilated with a 2.50mm EUPHORA 12 MM balloon with a maximum inflation pressure of 15 atmospheres. A premounted 2.75 x 12 mm Resolute PRISCILA (MARY) was deployed with a maximum inflation pressure of 18 atmospheres. Following stent deployment, the lesion was dilated using a 3.00mm NC EUPHORA 08 MM balloon with a maximum inflation pressure of 22 atmospheres. ? The final outcome was defined as successful. There was no residual stenosis following this intervention. The final TANIKA flow was 3. ? Right Coronary Artery Mid 90% Stent insertion was performed on the 90% stenosis in the mid segment of the RCA. This was a de neeraj lesion. This lesion was designated a type B2 high risk lesion based on ACC/AHA classification system. Primary prevention of restenosis was the indication for stent insertion. This was the culprit lesion. Vessel flow pre intervention was TANIKA 3. ? Stent insertion was accomplished through a 6 Fr. JR 4 guide. The lesion was predilated with a 2.50mm EUPHORA 12 MM balloon with a maximum inflation pressure of 15 atmospheres. A premounted 3.50 x 18 mm Resolute PRISCILA (MARY) was deployed with a maximum inflation pressure of 18 atmospheres. ? The final outcome was defined as successful. There was no residual stenosis following this intervention. The final TANIKA flow was 3. ? Vascular Access: Vascular Access Angiogram: A selective angiogram at the right femoral artery revealed mild diffuse disease. ? Vascular Access Management: A 6 Fr Perclose was deployed at the right femoral artery access site. This device was successful. ? Dual Antiplatelet (DAPT) Recommendations: Drug eluting stent (MARY) inserted. ? P2Y12 Loading dose administered prior to arrival in the labor relations officer. ? Recommend continuing clopidogrel 75 mg PO daily for 12 months. Recommend continuing aspirin 81 mg unless intolerant. ? The DAPT score is 2. The DAPT score calculates net clinical benefit of prolonged dual antiplatelet therapy following percutaneous coronary intervention. A DAPT Score of equal or greater than 2 suggests an increased risk of late stent thrombosis and MACCE. If the DAPT score is equal or greater than 2 and the patient tolerates the recommended duration of DAPT without bleeding or side effects, consider extending the DAPT to 30 months post procedure. ? Conclusions: * Two vessel coronary artery disease (LAD and RCA) * Successful stent insertion of the mid RCA lesion * Successful stent insertion of the mid LAD lesion * Recommend continuing clopidogrel 75 mg PO daily for 12 months (see DAPT Recommendations above for more information.) ? Complications/Events: The patient had no complications during these procedures. ? The attending physician was present for the entire procedure. ? Dr. Jim Chen M.D. was present during the moderate sedation intraservice time as documented by the sedation nurse. Case time = 01:03. ? Dr. Jim Chen M.D. performed the coronary angiography, left heart catheterization, stent insertion-coronary, access site angiography and vascular closure device. Pending Studies and Lab Data: No current labs Discharge Conditions/Prognosis: NSTEMI, stable Discharge to: Home/Self care Discharge Medications: Your Medications New Medications Dose Details aspirin 81 mg Chew Take 81 mg by mouth daily. 81 mg Quantity: 30 tablet Refills: 3 atorvastatin 40 mg Tab Commonly known as: LIPITOR Take 1 tablet by mouth every evening. 40 mg Quantity: 90 tablet Refills: 3 clopidogrel 75 mg Tab Commonly known as: PLAVIX Take 1 tablet by mouth daily. 75 mg Quantity: 90 tablet Refills: 3 nicotine 7 mg/24 hr Pt24 Commonly known as: NICODERM CQ Place 1 patch onto the skin daily. 1 patch Quantity: 28 patch Refills: 3 nitroGLYcerin 0.4 mg Subl Commonly known as: NITROSTAT Place 1 tablet under the tongue every 5 minutes as needed for Chest pain. 0.4 mg Quantity: 90 tablet Refills: 12 Continued medications with new dosing Dose Details meTOPROLOL succinate 50 mg Tablet sr Commonly known as: TOPROL-XL Take 1 tablet by mouth daily. What changed: - medication strength - how much to take 50 mg Quantity: 30 tablet Refills: 12 Continued medications, unchanged Dose Details FLUoxetine 20 mg Cap Commonly known as: PROzac Take 40 mg by mouth daily. 40 mg Refills: 0 lamoTRIgine 150 mg Tab Commonly known as: LaMICtal Take 150 mg by mouth daily. 150 mg Refills: 0 montelukast 10 mg Tab Commonly known as: SINGULAIR Take 10 mg by mouth nightly. 10 mg Refills: 0 pregabalin 75 mg Cap Commonly known as: LYRICA Take 75 mg by mouth daily. 75 mg Refills: 0 verapamil 180 mg Tbsr Commonly known as: CALAN-SR Take 180 mg by mouth nightly. 180 mg Refills: 0 Updated Allergies/ADRs: Allergies Allergen Reactions ??? Imitrex [Sumatriptan Succinate] ??? Alprazolam ??? Amoxicillin Unknown pt unsure ??? Ampicillin Itching ??? Azithromycin Itching ??? Codeine Phosphate Itching ??? Sulfa (Sulfonamide Antibiotics) Itching Edema Instructions Given to Patient at Discharge: Patient Instructions Patient Instructions on Discharge to Home Why you were hospitalized: You had a heart attack, which was caused by a blockage in one of your heart arteries. This was fixed with a stent that was placed during a cardiac catheretization. Because you had this procedure, youshouldn't lift anything greater than 10 lbs for the next week and nothing greater than 20 lbs for 2 weeks. After that time you may go back to regular activity and work. Call your doctor if your Right groin pain gets worse, or you develop swelling or redness in that area. Also, call your doctor if you develop sudden chest pain or shortness of breath, especially chestpain that does not go away with nitroglycerin. It is important that you take your aspirin 81mg daily forever and clopidogrel 75mg daily for at least 1 year. Do not miss any doses of these medications! New Medications: Aspirin: this is a platelet inhibitor that will help prevent clot build up in your arteries, as well as in the stent that was placed. Continue taking 81mg daily indefinitely. Clopidogrel (plavix): this is a second platelet inhibitor that will help prevent clot build up in the stent that was placed. It is very important that you take this medication every day at least forone year to help keep your stent open. Follow up with your doctor before stopping this medication. Atorvastatin (lipitor): this is a cholesterol-lowering medication that helps prevent build up of plaque in your arteries. Take this every evening. Metoprolol (toprol): this is a beta jaswinder, that helps protect your heart. Take this every day. Lisinopril: this is an VEENA inhibitor that also helps protect your heart, as well as help control your blood pressure. Take this every day. Nitroglycerin: this is a medication that can be placed under your tongue as needed for chest pain. If you experience chest pain, especially that similar to what you had before you were admitted to the hospital, sit down and place one tab under your tongue (it may make you dizzy, so sitting down before taking this is safest). If your chest pain does not improve, call your doctor. Medication Changes: No changes. When to call your doctor: - Chest pain, worsening shortness of breath, fatigue with usual exertion, or new rest/night time symptoms. - Weigh yourself daily and record; if you note an increase of more than 2-3 pounds in 2 days, or 5 pounds over a week, contact your health care provider. - If you become short of breath, cannot lie down to sleep, or have swelling in your legs/ankles or abdomen, contact your health care provider. - Call if you have reduced urination during the day or increased urination at night. - Call for signs of increased wound drainage, redness, swelling, or increased pain at the site of your cardiac cath. - Call if you develop a temp >100.5 If you have non-emergent questions between now and the time of your follow up appointments: During 8am-5pm Tuesday through Tuesday call [phone] to speak with a nurse in the cardiology clinic All other times call [phone] and ask to speak to the passenger relations representative environmental projects advisor. Activity level: - No heavy lifting (more than five pounds) for 48 hours; no more than 10 pounds for one week. - You may return to work in 1 week. Use common sense. Don't exhaust yourself. - No hunting, skiing, jogging, snow shoveling, snowmobiling, lawn mowing, swimming, golf or tennis until after your return appointment with your family doctor. - Do not ride motorcycles, tractors or horses until cleared by your doctor. Diet: - Heart healthy: low salt, low fat, low concentrated sweets. Remember to avoid added salt, canned foods, processed foods (ie hot dogs, sausage, cold meats), and foods naturally high in salt, such as potato chips or pizza. Driving: - Per your routine after [address] if you feel dizzy, light headed, or are taking narcotic medications (ie/ Oxycodone, Morphine, Dilaudid, etc). Shower/Bath: - You may shower 24 hours after cardiac catheterization. - You may not sit in water for 5 days (tub bath, hot tub or pool). Wound Care: - Cath site dressing may be removed in 24 hours. Site may be washed with soap/water. A dressing does not need to be reapplied unless irritation occurs with underclothes. If irritation occurs, apply clean band-aid daily. Exercise: - Exercise 5-7 days per week as tolerated with gradual increase to 30 minutes per day. Smoking cessation: - If you are currently a smoker, you are strongly urged to stop smoking! Smoking increases the severity and incidence of heart disease, and is a risk factor for cancer and emphysema. Your health careprovider can provide specific measures to assist you, including nicotine supplements, anti-anxiety meds, and support groups in your community. Follow up Appointments: Please follow up with your PCP listed below. We were unable to make an appointment as the clinic was closed Tuesday. You should see her within the week. Please make an appointment with Dr. Chang for 5-10 days from today as well. No future appointments. Forge Helper: Dr. Chang at [phone] PCP: Asya Hand MD at [phone] Your Inpatient Doctor(s) at [facility]: Vinh Henderson MD - Attending physician Jeri Ruiz MD - Resident physician - Bill Of Lading Clerk physician Your Primary Care Provider: Asya Hand MD [address] / [place] [address] For questions regarding issues relating to your hospitalization on the Hospital Medicine Service, please contact your inpatient physician through the [facility] Assembly Line Supervisor [phone]. Issues after hours and on weekends will be handled by the Hospitalist staff on-call. General Instructions None Discharge References/Attachments: Discharge References/Attachments None Inpatient Provider Contact Information: [facility] IP Cardiology - [phone] Electronically Signed By: Wyatt Coreas MD 08/01/2017 documented in this encounter Discharge Instructions * Patient Instructions* Wyatt Coreas MD - 07/30/2017 3:14 PM EDT Patient Instructions on Discharge to Home Why you were hospitalized: You had a heart attack, which was caused by a blockage in one of your heart arteries. This was fixed with a stent that was placed during a cardiac catheretization. Because you had this procedure, youshouldn't lift anything greater than 10 lbs for the next week and nothing greater than 20 lbs for 2 weeks. After that time you may go back to regular activity and work. Call your doctor if your Right groin pain gets worse, or you develop swelling or redness in that area. Also, call your doctor if you develop sudden chest pain or shortness of breath, especially chestpain that does not go away with nitroglycerin. It is important that you take your aspirin 81mg daily forever and clopidogrel 75mg daily for at least 1 year. Do not miss any doses of these medications! New Medications: Aspirin: this is a platelet inhibitor that will help prevent clot build up in your arteries, as well as in the stent that was placed. Continue taking 81mg daily indefinitely. Clopidogrel (plavix): this is a second platelet inhibitor that will help prevent clot build up in the stent that was placed. It is very important that you take this medication every day at least forone year to help keep your stent open. Follow up with your doctor before stopping this medication. Atorvastatin (lipitor): this is a cholesterol-lowering medication that helps prevent build up of plaque in your arteries. Take this every evening. Metoprolol (toprol): this is a beta jaswinder, that helps protect your heart. Take this every day. Lisinopril: this is an VEENA inhibitor that also helps protect your heart, as well as help control your blood pressure. Take this every day. Nitroglycerin: this is a medication that can be placed under your tongue as needed for chest pain. If you experience chest pain, especially that similar to what you had before you were admitted to the hospital, sit down and place one tab under your tongue (it may make you dizzy, so sitting down before taking this is safest). If your chest pain does not improve, call your doctor. Medication Changes: No changes. When to call your doctor: - Chest pain, worsening shortness of breath, fatigue with usual exertion, or new rest/night time symptoms. - Weigh yourself daily and record; if you note an increase of more than 2-3 pounds in 2 days, or 5 pounds over a week, contact your health care provider. - If you become short of breath, cannot lie down to sleep, or have swelling in your legs/ankles or abdomen, contact your health care provider. - Call if you have reduced urination during the day or increased urination at night. - Call for signs of increased wound drainage, redness, swelling, or increased pain at the site of your cardiac cath. - Call if you develop a temp >100.5 If you have non-emergent questions between now and the time of your follow up appointments: During 8am-5pm Tuesday through Tuesday call [phone] to speak with a nurse in the cardiology clinic All other times call [phone] and ask to speak to the passenger relations representative environmental projects advisor. Activity level: - No heavy lifting (more than five pounds) for 48 hours; no more than 10 pounds for one week. - You may return to work in 1 week. Use common sense. Don't exhaust yourself. - No hunting, skiing, jogging, snow shoveling, snowmobiling, lawn mowing, swimming, golf or tennis until after your return appointment with your family doctor. - Do not ride motorcycles, tractors or horses until cleared by your doctor. Diet: - Heart healthy: low salt, low fat, low concentrated sweets. Remember to avoid added salt, canned foods, processed foods (ie hot dogs, sausage, cold meats), and foods naturally high in salt, such as potato chips or pizza. Driving: - Per your routine after [address] if you feel dizzy, light headed, or are taking narcotic medications (ie/ Oxycodone, Morphine, Dilaudid, etc). Shower/Bath: - You may shower 24 hours after cardiac catheterization. - You may not sit in water for 5 days (tub bath, hot tub or pool). Wound Care: - Cath site dressing may be removed in 24 hours. Site may be washed with soap/water. A dressing does not need to be reapplied unless irritation occurs with underclothes. If irritation occurs, apply clean band-aid daily. Exercise: - Exercise 5-7 days per week as tolerated with gradual increase to 30 minutes per day. Smoking cessation: - If you are currently a smoker, you are strongly urged to stop smoking! Smoking increases the severity and incidence of heart disease, and is a risk factor for cancer and emphysema. Your health careprovider can provide specific measures to assist you, including nicotine supplements, anti-anxiety meds, and support groups in your community. Follow up Appointments: Please follow up with your PCP listed below. We were unable to make an appointment as the clinic was closed Tuesday. You should see her within the week. Please make an appointment with Dr. Chang for 5-10 days from today as well. No future appointments. Forge Helper: Dr. Chang at [phone] PCP: Asya Hand MD at [phone] Your Inpatient Doctor(s) at [facility]: Vinh Henderson MD - Attending physician Jeri Ruiz MD - Resident physician - Bill Of Lading Clerk physician Your Primary Care Provider: Asya Hand MD [address] / [place] [address] For questions regarding issues relating to your hospitalization on the Hospital Medicine Service, please contact your inpatient physician through the [facility] Assembly Line Supervisor [phone]. Issues after hours and on weekends will be handled by the Hospitalist staff on-call. documented in this encounter Medications at Time of Discharge Medication Sig Dispensed Refills Start Date End Date aspirin 81 mg Tablet, Chewable Take 81 mg by mouth daily. 30 tablet 3 07/31/2017 meTOPROLOL succinate (TOPROL-XL) 50 mg Tablet Sustained Release 24 hr Take 1 tablet by mouth daily. 30 tablet 12 07/31/2017 nitroGLYcerin (NITROSTAT) 0.4 mg Tablet, Sublingual Place 1 tablet under the tongue every 5 minutes as needed for Chest pain. 90 tablet 12 07/30/2017 atorvastatin (LIPITOR) 40 mg Tablet Take 1 [...] nightly. 08/17/2017 documented as of this encounter Progress Notes * Jennyfer Galan RN - 07/30/2017 3:36 PM EDT No acute complications. Alert and oriented. VSS on RA. Denies chest pain/SOB. IV and tele removed. Discharge paperwork reviewed. D/c home with no services/ * Vinh Henderson MD - 07/30/2017 9:10 AM EDT Images from the original note were not included. I have reviewed the pertinent information, examined the patient, and discussed the management and plan with the house staff (resident, sports broadcasting internship). ?? Brief history: 52 yo woman presents with SSCP. H/o non-obstructive CAD, suggestive of angina. Trop 0.15. T wave changes inf/ant on EKG. H/o polysubstance abuse. Cath yesterday with severe 2 v CAD, now s/p PCI. No chest pain; feels well. ?? Physical examination: No distress RRR no murmurs Lungs clear abd soft No edema ?? Pertinent data: Coronary Angiography: Dominance: Right ? Left Main The left [...] of the distal segment of the RCA. ? Indication for Intervention: Coronary intervention was indicated for treatment of high risk unstable angina. Left Ventricular Ejection fraction was not assessed. The priority for the procedure was Urgent. The [facility] indication for the procedure was PCI for high risk Non-STEMI or unstable angina. ? Intervention Summary: Left Anterior Descending Artery Mid 75% Stent insertion was performed on the 75% stenosis in the mid segment of the LAD. This was a de neeraj lesion. According to the ACC/AHA classification system, this lesion was a type B2 high risk lesion. Primary prevention of restenosis was the indication for stent insertion. Vessel flow pre intervention was TANIKA 3. ? Stent insertion was accomplished through a 6 Fr. EBU 4.0 guide. The lesion was predilated with a 2.50mm EUPHORA 12 MM balloon with a maximum inflation pressure of 15 atmospheres. A premounted 2.75 x 12 mm Resolute PRISCILA (MARY) was deployed with a maximum inflation pressure of 18 atmospheres. Following stent deployment, the lesion was dilated using a 3.00mm NC EUPHORA 08 MM balloon with a maximum inflation pressure of 22 atmospheres. ? The final outcome was defined as successful. There was no residual stenosis following this intervention. The final TANIKA flow was 3. ? Right Coronary Artery Mid 90% Stent insertion was performed on the 90% stenosis in the mid segment of the RCA. This was a de neeraj lesion. This lesion was designated a type B2 high risk lesion based on ACC/AHA classification system. Primary prevention of restenosis was the indication for stent insertion. This was the culprit lesion. Vessel flow pre intervention was TANIKA 3. ? Stent insertion was accomplished through a 6 Fr. JR 4 guide. The lesion was predilated with a 2.50mm EUPHORA 12 MM balloon with a maximum inflation pressure of 15 atmospheres. A premounted 3.50 x 18 mm Resolute PRISCILA (MARY) was deployed with a maximum inflation pressure of 18 atmospheres. ? The final outcome was defined as successful. There was no residual stenosis following this intervention. The final TANIKA flow was 3. ? Vascular Access: Vascular Access Angiogram: A selective angiogram at the right femoral artery revealed mild diffuse disease. ? Vascular Access Management: A 6 Fr Perclose was deployed at the right femoral artery access site. This device was successful. ? Dual Antiplatelet (DAPT) Recommendations: Drug eluting stent (MARY) inserted. ? P2Y12 Loading dose administered prior to arrival in the labor relations officer. ? Recommend continuing clopidogrel 75 mg PO daily for 12 months. Recommend continuing aspirin 81 mg unless intolerant. ? The DAPT score is 2. The DAPT score calculates net clinical benefit of prolonged dual antiplatelet therapy following percutaneous coronary intervention. A DAPT Score of equal or greater than 2 suggests an increased risk of late stent thrombosis and MACCE. If the DAPT score is equal or greater than 2 and the patient tolerates the recommended duration of DAPT without bleeding or side effects, consider extending the DAPT to 30 months post procedure. ? Conclusions: * Two vessel coronary artery disease (LAD and RCA) * Successful stent insertion of the mid RCA lesion * Successful stent insertion of the mid LAD lesion * Recommend continuing clopidogrel 75 mg PO daily for 12 months (see DAPT Recommendations above for more information.) ? Impression: 1. NSTEMI 2. Substance abuse ?? Plan: 1. Doing well, s/p PCI's 2. Echo today 3. Ambulate 4. Strict medication compliance, including DAPT, metoprolol 50mg XL and high- dose statin 5. Home today after echo, ambulation 6. Smoking cessation 7. She would like to f/u with Dr. Chang in [place], [place] ?? The patient understands the plan and all questions were answered. ?? Vinh Henderson MD * Alberto Ferguson RN - 07/30/2017 12:03 AM EDT Pt came back from labor relations officer around 1945 via stretcher with fluids running, alert and oriented but a little off due to medications. R groin access covered with with gauze, dry and intact, oob after bedrest and cath site remained dry, no hematoma noted. MD at bed side to assess pt post cath. VS stable. No c/o any pain and sob. * Simona Bergman MD - 07/29/2017 9:02 PM EDT Post Cardiac Catheterization Check Note Subjective: No chest pain, dyspnea, abdominal/groin/back pain. No rash. No weakness/numbness/tingling. No bleeding/swelling from access site. Objective: Blood pressure 110/77, pulse 53, temperature 36.5 ??C (97.7 ??F), temperature source Oral, resp. rate 10, height 170.2 cm (5' 7), weight 80.3 kg (177 lb 0.5 oz), SpO2 98 %. General: Lying in bed in NAD. Site: access site without hematoma or ecchymoses. dressing c/d/i. No bruit. Nontender. Extrem: no livedo reticularis, warm/symmetric, sensation intact/symmetric, symmetric 2+ PT/DP pulses. A/P: s/p cath with benign-appearing right femoral access site and no issues Simona K Munchel, MD documented in this encounter H&P Notes * Vinh Henderson MD - 07/29/2017 4:58 PM EDT Images from the original note were not included. I have reviewed the pertinent information, examined the patient, and discussed the management and plan with the house staff (resident, sports broadcasting internship). Brief history: 52 yo woman presents with SSCP. H/o non-obstructive CAD, suggestive of angina. Trop 0.15. T wave changes inf/ant on EKG. H/o polysubstance abuse. Physical examination: Mild distress due to chest pain RRR no murmurs Lungs clear abd soft No edema Pertinent data: Prior cath: Coronary Angiography: Dominance: Right ? Left Main The left main was normal. ? Left Anterior Descending There was mild diffuse disease of the proximal segment of the left anterior descending artery (LAD) and it was aneurysmal. The LAD was large. The mid segment of the LAD had a single discrete 50% stenosis. ? Left Circumflex There was mild diffuse disease of the proximal segment of the left circumflex artery (LCX) and it was aneurysmal and tortuous. The LCX was large. ? There was a 40% eccentric and tortuous diffuse stenosis of the proximal segment of the second obtuse marginal branch (OM2) of the LCX. The OM2 was large. ? Right Coronary Artery There was mild diffuse disease of the proximal segment of the right coronary artery (RCA) and it was aneurysmal. The RCA was large. The mid segment of the RCA had an eccentric single discrete 50% stenosis. There also was a 40% eccentric single discrete stenosis of the distal segment of the RCA. ? Vascular Access: Vascular Access Management: Mechanical Compression of the right radial artery access site was performed. ? Conclusions: * Two vessel coronary artery disease (LAD and RCA) * Elevated left ventricular end diastolic pressure ? Complications/Events: The patient had no complications during these procedures. Impression: 1. NSTEMI 2. Substance abuse Plan: 1. Cath today, patient / cath team agree 2. Further recommendations to follow The patient understands the plan and all questions were answered. Vinh Henderson MD * Quirino Covarrubias - 07/29/2017 3:19 PM EDT Images from the original note were not included. Cardiology Admission History and Physical Patient Name: Sahra Williamson Service: S2 Pager [phone] Responsible Attending: Dr. Henderson Primary Provider: Asya Hand MD [phone] Chief Complaint: Chest Pain History of Present Illness: Ms. Williamson presents in transfer from [facility] with chest pain, now transferred for further management of NSTEMI. On the morning of presentation Ms. Williamson was awoken from sleep at 5:30 am by a stabbing, burning, piercing, crushing chest pain. It lasted without abating for several hours and she arrived at [facility]. She reports that for the past several weeks she has been feeling off and has been unable to go for walks and be as active as she would like. She has noted diminished exercise tolerance with dyspnea on exertion, occasionally with subsequent chest pain, which improves with rest. She has noticed swelling in her legs for the past five to six months, though reports losing weight. She denies orthopnea or paroxysmal nocturnal dyspnea. No relief with position changes. She does note it worsens with change in position from sitting to standing. It is not worsened with deep inspiration. She denies cough or fevers other than her regular smoker's cough. She has been taking care of young grandchildren aged 5 and 7, both of whom were sick in the past month with respiratory infections and ear infections. She overall reports profound fatigue. She reports that she has intermittently had chest discomfort which floors her without a predictable pattern. On arrival at [facility] Ms. Williamson's vitals were normal temperature, pulse 58. She was given sublingual nitroglycerin which provoked a horrendous headache but did little for the pain, pantoprazole, and a GI cocktail which she feels helped. Initial EKG showed known T-wave inversions in V2-V4,subsequent EKG showed new T wave inversions in the inferior leads and normalization of the T wave inversions in the anterior leads. No diagnostic ST segment elevations on either EKG. A creatinine was0.9. A urine toxicology screen was positive for methamphetamines. She was treated with a heparin bolus and infusion. [facility] cardiology was contacted for further evaluation and management of acute coronary syndrome and transfer arranged. She did not receive loading doses of aspirin or clopidogrel prior to transfer. On arrival she endorses pain of 6 out of 10 at rest. She has had continuous chest pain since awakening. Morphine has provided incomplete relief. Review of Systems: ?? GENERAL ?? HEENT ?? COR ?? PULM All negative x All negative ?? All negative ?? All negative ??x Weight loss ?? Headache x Chest Pain ?? Non-productive cough ?? Weight gain ?? Vision change ?? Palpitations -?? Productive cough ?? Fevers ?? Sinus congestion ?? Orthopnea -?? Wheezing ?? Chills ?? Hoarseness x?? Leg edema ?? Hemoptysis ?? Night sweats ?? Epistaxis ?? Paroxysmal nocturnal dyspnea -?? Pleuritic pain ?? Fatigue ? Syncope +?? SOB ? Claudication ??+ EDMOND ? MSK ?? RENAL ?? ENDO ?? GI x All negative x All negative x All negative x All negative ?? Arthralgias ?? Frequency ?? Heat intolerance ?? Blood in stool ?? Myalgias ?? Urgency ?? Cold intolerance ?? Dysphagia ?? Weakness ?? Hematuria ?? Polydipsia ?? Odynophagia ?? Stiffness ?? Flank pain ?? Polyphagia ?? Abdominal discomfort ? Dysuria ?? Cushingoid ?? Constipation ? Foamy urine ? Diarrhea ? Discharge ? Nausea/Vomiting ? LYMPH ?? SKIN ?? NEURO ?? PSYCH x All negative x All negative x All negative x All negative ?? Swollen nodes ?? Rash ?? Seizures ?? Depressed affect ?? Tender nodes ?? Ulcers ?? Tremors ?? Occupational stress ?? Diffuse nodes ?? Bruising ?? Spasticity ?? Anxiety ?? Local nodes ?? Tanned skin ?? Focal weakness ?? Insomnia ?? Night sweats ?? Telangiectasias ?? Diplopia ? Paresthesias ? Dizziness ? Past Medical and Surgical History: Patient Active Problem List Diagnosis ??? Coronary artery disease 02/05/2016 Coronary angiogram at [facility]: LAD mid 50%, OM1 long 40%, RCA mid 50%. ??? NSTEMI (non-ST elevated myocardial infarction) ??? Anxiety ??? Cerebrovascular accident (CVA) ??? Tobacco dependence syndrome ??? Headache, chronic daily ??? Hypertension ??? Hyperlipidemia ??? History of seizure ??? Current smoker 35+yrs ??? Depression ??? 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 Chest pain ??? Chronic pain ??? Migraine ??? Cervical spondylosis ??? PRES (posterior reversible encephalopathy syndrome) Medications: Fluoxetine 40 mg QD Lamotrigine 150 mg QD Metoprolol succinate 100 mg QD Pregabalin 75 mg QD Verapamil 180 mg QD Montelukast 10 mg QD Albuterol inhaler as needed Not taking ASA 81 mg because she prefers ibuprofen Takes a garlic pill for cholesterol and health Allergies: Allergies Allergen Reactions ??? Imitrex [Sumatriptan Succinate] ??? Alprazolam ??? Amoxicillin Unknown pt unsure ??? Ampicillin Itching ??? Azithromycin Itching ??? Codeine Phosphate Itching ??? Sulfa (Sulfonamide Antibiotics) Itching Edema Family History: Father has had cardiac stents, first around age 50 Social History: Alcohol: Drinks wine, usually 2 glasses, occasionally more in a social situation Tobacco: 5 or 6 cigarettes per day, for 30 years Illicits: Smokes marijuana occasionally; used cocaine previously but not for a long time last 20 years ago Living Situation: Lives in [place], [place]. Lives alone, brothers within a few hours drive Vocation: Disabled due to back issues. 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 Part[place] [facility] [place] Pets: Unable to ask Vitals: Last value Range last 24 hrs Temperature Temp: 36.5 ??C (97.7 ??F) Temp: [36.5 ??C (97.7 ??F)] Heart Rate Heart Rate: 51 Heart Rate: [51] Blood Pressure BP: 99/70 BP: (99)/(70) Respiratory Rate Resp: 16 Resp: [16] SpO2 SpO2: 94 % SpO2: [94 %] Examination: General: Acutely ill, bespectacled woman HEENT: Normocephalic, atraumatic. Anicteric sclerae, normal conjunctivae. Oropharynx clear without lesions. Moist mucous membranes Neck: JVP 7 cm with HOB at 30 degrees Cor: Normal rate, regular rhythm; normal S1/S2, no S3; no murmurs or rubs appreciated Lungs: Breathing non-labored. Rales at bases, otherwise clear to auscultation Abdomen: Non-distended, normal bowel sounds, soft, non-tender, non-distended Extremities: Warm, well perfused. No cyanosis, clubbing, or edema. 2+ peripheral pulses present in all four extremities Neurologic: Alert, oriented, cooperative; no focal deficits appreciated. Skin: Warm, dry. No rashes or lesions appreciated. Access: PIVS Laboratory: Prior to Transfer WBC 9.7 Hgb 17.1 Platelet 217 Monocyte predominant Troponin initial <0.06, second 0.15 Na 138 K 4.3 Cl 104 HCO3 22 BUN/Cr 18/0.9 T Protein 7.3 Albumin 4 T bili 0.9 AST/ALT 94/97 Alk phos 148 UDS + for methamphetamine, opiate, buprenorphine Ethanol undetectable Microbiol ogy: None Imaging and Diagnostics: Initial EKG 0742 Second EKG 1142 EKG on arrival: Cath 01/2016: Conclusions: * Two vessel coronary artery disease (LAD and RCA) * Elevated left ventricular end diastolic pressure No PCI undertaken Assessment and Plan: 52 year old female with known coronary disease presenting with crescendo symptoms over past severalweeks and now with rest pain, ongoing, positive troponin consistent with NSTEMI with rales on exam.Unclear relationship between her positive methamphetamine screen and present event and symptoms. #NSTEMI, Killip Class II, high risk --Cardiac catheterization now --Aspirin 325 mg now, continue 81 mg daily --Clopidogrel 600 mg now, continue 75 mg daily --Heparin infusion, ACS dose --High intensity statin: start atorvastatin 40 mg QD --Beta blockade: hold with soft pressures, introduce as tolerated --RAAS blockade: initiate as tolerated, hold at present --Serial cardiac enzymes, risk stratification --TTE, CXR --Chest pain protocol, SL nitro or PRN morphine for chest pain #Tobacco use --Nicotine patch provided, counseled on abstinence #Methamphetamine use, positive drug screen for other substances --May warrant behavioral intervention counseling following procedure --Unclear relationship to acute coronary event but with known disease and typical symptoms, treat as NSTE-ACS --Hold verapamil at present with borderline BP, reintroduce as tolerated #Chronic conditions --Continue home fluoxetine, lamotrigine #FEN/PPx/Disposition Fluids: None at present with rales on exam Electrolytes: K>4 Mg>1 Nutrition: NPO DVT PPx: Therapeutic heparin infusion GI PPx: Not indicated Glycemic control: None Disposition: ICCU, pending course Code Status: Full; Goals: Recovery; would not want prolonged life support if limited chance of recovery Alternate Decision Maker: Rudy Laureano [phone] Mian Covarrubias PGY-3 S2 Pager [phone] documented in this encounter Miscellaneous Notes * Plan of Care - Angeles Araujo RN - 07/29/2017 6:34 PM EDT Problem: Patient Care Overview Goal: Fall Prevention-Safe Patient Handling Outcome: Ongoing (Interventions Implemented as Appropriate) 07/29/17 1530 Pineda Fall Risk History of Falling 0 Secondary Diagnosis 15 Ambulatory Aids 0 Intravenous Therapy/Heparin/Saline Lock 0 Gait/Transferring 0 Mental Status 0 Score 15 OTHER Pineda Fall Risk Low Restraint Interventions Safety Promotion/Fall Prevention safety round/check completed;nonskid shoes/slippers when out of bed;muscle strengthening facilitated;fall prevention program maintained;activity supervised Positioning Body Position independent OUTCOME EVALUATION NOTE: OUTCOME SUMMARY: Pt arrived from OSH at 1530 with 5/10 sharp SSCP. 2mg IV morphine given. [id number] and plavix 600mg given here. Pt arrived on heparin drip but was not switched over to our concentration before taken for cath at 1640. She is a/o x4. VSS. EKG: SB 50s, no STEs. PLAN MOVING FORWARD: Post-cath monitoring INDIVIDUALIZED FALL PREVENTION INTERVENTIONS: Patient-specific fall risk factors per assessment: [current deficits]: Assistance [level of assistance required for transfers and ambulation]: SBA Supervision [direct monitoring required during toileting and ADLs]: Intermittent. Pt uses call bellappropriately Surveillance [continuous indirect monitoring]: Purposeful hourly rounding, telemetry Goal: Infection Control Outcome: Ongoing (Interventions Implemented as Appropriate) 07/29/17 1530 Safety Interventions Isolation Precautions standard precautions maintained Infection Prevention cohorting utilized;environmental surveillance performed;personal protective equipment utilized;rest/sleep promoted;single patient room provided Coping Strategies Supportive Measures active listening utilized;decision-making supported;goal setting facilitated;positive reinforcement provided;problem solving facilitated;relaxation techniques promoted;self-care encouraged;verbalization of feelings encouraged documented in this encounter Plan of Treatment Scheduled Orders Name Type Priority Associated Diagnoses Orde r Schedule EKG 12 Lead ECG Routine Coronary artery disease, angina presence unspecified, unspecified vessel or lesion type, unspecified whether hughes or transplanted heart One Time for 1 Occurrences starting 07/30/2017 until 07/30/2017 documented as of this encounter Procedures Procedure Name Priority Date/Time Associated Diagnosis Comments IMPLANTABLE DEVICES SCAN 07/31/2017 12:00 AM EDT CIVIL RIGHTS INVESTIGATOR SCAN 07/31/2017 12:00 AM EDT CARDIAC CATH SCAN 07/31/2017 12: 00 AM EDT ECHO COMPLETE Routine 07/30/2017 12:29 PM EDT Coronary artery disease, angina presence unspecified, unspecified vessel or lesion type, unspecified whether hughes or transplanted heart EKG 12-LEAD Routine 07/30/2017 7:20 AM EDT Coronary artery disease, angina presence unspecified, unspecified vessel or lesion type, unspecified whether hughes or transplanted heart XR CHEST PA AND LATERAL Routine 07/30/20 17 6:54 AM EDT HEMOGRAM Routine 07/30/2017 6:20 AM EDT DIFFERENTIAL, AUTOMATED Routine 07/30/20 17 6:20 AM EDT CARDIAC ENZYMES (DH/CGP) Routine 07/30/2017 6:20 AM EDT CBC (WITH DIFF) Routine 07/30/2017 6:20 AM EDT LIPID PANEL (REFLEX DIRECT LDL) Routine 07/30/2017 6:20 AM EDT BASIC METABOLIC PANEL (NON-FASTING) Routine 07/30/2017 6:20 AM EDT URINALYSIS MICROSCOPIC EXAM Routine 07/30/2017 3:45 AM EDT URINE HOLD Routine 07/30/2017 3:45 AM EDT URINALYSIS WITH REFLEX CULTURE Routine 07/30/2017 3:45 AM EDT CARDIAC ENZYMES ([facility]/CGP) Routine 07/29/2017 11:39 PM EDT EKG 12-LEAD Routine 07/29/2017 7:10 PM EDT Coronary artery disease, angina presence unspecified, unspecified vessel or lesion type, unspecified whether hughes or transplanted heart HEMOGRAM Routine 07/29/2017 6:25 PM EDT DIFFERENTIAL, AUTOMATED Routine 07/29/20 17 6:25 PM EDT CARDIAC ENZYMES ([facility]/CGP) Routine 07/29/2017 6:25 PM EDT CBC (WITH DIFF) Routine 07/29/2017 6:25 PM EDT TSH Routine 07/29/2017 6:25 PM EDT PRO-BRAIN NATRIURETIC PEPTIDE Routine 07/29/2017 6:25 PM EDT MAGNESIUM Routine 07/29/2017 6:25 PM EDT CALCIUM Routine 07/29/2017 6:25 PM EDT BASIC METABOLIC PANEL (NON-FASTING) Routine 07/29/2017 6:25 PM EDT CARDIAC CATHETERIZATION Routine 07/29/20 6:22 PM EDT APTT STAT 07/29/2017 5:00 PM EDT EKG 12-LEAD Routine 07/29/2017 3:51 PM EDT Coronary artery disease, angina presence unspecified, unspecified vessel or lesion type, unspecified whether hughes or transplanted heart FILM LIBRARY STORAGE ONLY DX CHEST Routine 07/29/2017 12:00 AM EDT documented in this encounter Results * SCAN DOC: IMPLANTABLE DEVICES (07/31/2017 12:00 AM EDT) Narrative 07/31/2017 12:00 AM EDT Ordered by an unspecified provider. Scanning Provider MEDIA MGR SCAN EXT O RDR/RSLT * SCAN DOC: CIVIL RIGHTS INVESTIGATOR (07/31/2017 12:00 AM EDT) Anatomical Region Laterality Modality Other Narrative 07/31/2017 12:00 AM EDT Ordered by an unspecified provider. Scanning Provider MEDIA MGR SCAN EXT O RDR/RSLT * SCAN DOC: CARDIAC CATH (07/31/2017 12:00 AM EDT) Anatomical Region Laterality Modality Cardiac Other Narrative 07/31/2017 12:00 AM EDT Ordered by an unspecified provider. Scanning Provider MEDIA MGR SCAN EXT O RDR/RSLT * ECHO COMPLETE (07/30/2017 12:29 PM EDT) EF 62 HEARTLAB SYSTEM Anatomical Region Laterality Modality Other 07/30/2017 Narrative 07/30/2017 12:58 PM EDT Procedure: ?Transthoracic Echocardiogram Patient: ?JORDYN Barnes ? (Age): 1965(52y) Med Rec#: ? [id number] ?Sex: ?F ? Site Loc: ? [facility] ?Ht / Wt: ??170(cm)/80(kg) Pt. Loc: ?Adult Floor ? BSA: ?1.92 Study Date: ?? 07/30/2017 ?Pt. Type: Inpatient Tape: ? 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 129/63 SUMMARY: 1. The left ventricular chamber size is normal. ??The quantitative left ventricular ejection fraction by biplane Spears's method is 62%. ??The basal inferior, and ??mid inferior wall segments are hypokinetic (score 2). 2. Right ventricular chamber size and systolic function are within normal limits. ??The estimated pulmonary artery systolic pressure is 31 mmHg. 3. There is no hemodynamically significant valve disease. 4. See remainder of report for additional findings. Findings ? : Study Quality: ? Adequate Left Ventricle: ? The left ventricular chamber size is normal. ?Left ventricular wall thickness is normal. ?There is normal global left ventricular systolic function. ?The quantitative left ventricular ejection fraction by biplane Spears's method is 62%. ?There are left ventricular segmental wall motion abnormalities present, as shown in the diagram below. ?Doppler assessment is consistent with normal left sided filling pressure. ?The ??basal inferior, and ??mid inferior wall segments are hypokinetic (score 2). ?Overall wallmotion score index is ??1.13 Left Atrium: ? The left atrium is normal in size. (34 ml/m2 by volume index) Right Ventricle: ? Right ventricular chamber size, wall thickness, and systolic function are within normal limits. ?The estimated pulmonary artery systolic pressure is 31 mmHg. ?The estimated right atrial pressure is 3 mmHg. Right Atrium: ? The right atrium appears normal. Aortic Valve: ? The aortic valve is trileaflet. The leaflets are thin with normal excursion. There is no aortic stenosis or regurgitation present. Mitral Valve: ? The mitral valve appears normal in structure and function. ?There is mild (1+/4+) mitral regurgitation present. Tricuspid Valve: ? The tricuspid valve appears normal in structure and function. ?There is trace tricuspid regurgitation present. Pulmonic Valve: ? The pulmonic valve appears normal in structure and function. Pericardium: ? The pericardium appears normal and there is no evidence of a pericardial effusion. Aorta: ? The aortic root is normal in size. ?There is mild dilatation of the ascending aorta. Pulmonary Artery: ? The main pulmonary artery appears normal. Venous: ? The inferior vena cava appears normal in size. ?There is a greater than 50% respiratory change in the inferior vena cava dimension. Misc: ? There is no hemodynamically significant valve disease. ?See remainder of report for additional findings. ?Two-dimensional echo, spectral Doppler and color Doppler performed. Chambers 2D ?Value ?Units (Range) ? IVSd (2D) ? 0.9 ?cm ? LVPWd (2D) ?1 ?cm ? IVS:LVPW ratio (2D) 0.9 ?ratio ? RWT (2D) ?0.4 ?ratio ? RWT PW (2D) ? 0.4 ?ratio ? LVIDd (2D) ?4.8 ?cm ? LVIDs (2D) ?2.8 ?cm ? LVIDd (2D) index ?2.5 ?cm/m2 ? LVIDs (2D) index ?1.4 ?cm/m2 ? LV FS (2D) ?43 ? % ? EF Teichholz (2D) ?? 74 ? % ? Ao root diameter (2D3.4 ?cm (2.1 - 3.6) ? Ascending Ao ?3.7 ?cm (2 - 3.5) ? Volumes/Mass ?Value ?Units (Range) ? LA Area 4 CH ?22 ? cm2 (<21) ? RA AREA 4CH ? 16.5 ? cm2 ? LA ESV BP (MOD) inde33.9 ? ml/m2 ? LV ESV SP 4CH (MOD) 27 ? ml ? LV ESV SP 2CH (MOD) 24 ? ml ? LV EDV BP ? 69 ? ml ? LV ESV BP ? 26 ? ml ? LV EDV BP index ? 35.9 ? ml/m2 ? LV ESV BP index ? 13.5 ? ml/m2 ? BP EF (MOD) ? 62 ? % ? LV mass (2D) ?167.2 ?g ? LV mass (2D) index ??87.1 ? g/m2 ? Diastolic/Systolic Function ?Value ?Units (Range) ? MV E-wave Vmax ?0.5 ?m/sec ? MV deceleration cmof856 ?msec ? MV A-wave Vmax ?0.5 ?m/sec ? MV E:A ratio ?1.1 ?ratio ? LV septal e' Vmax ?? 0.1 ?m/sec ? LV lateral e' Vmax ??0.1 ?m/sec ? LV average e' Vmax ??0.1 ?m/sec ? LV E:e' septal ratio9.9 ?ratio ? LV E:e' lateral rati6 ?ratio ? LV average E:e' rati7.1 ?ratio ? Tricuspid Valve ?Value ?Units (Range) ? TAPSE ? 2.2 ?cm ? TR Vmax ? 2.6 ?m/sec ? TR peak gradient ?27.9 ? mmHg ? RAP ? 3 ?mmHg ? RVSP ?31 ? mmHg ? Wall Motion: Segment Name ?Rest ? Base-Anteroseptal ?? Normal ? Base-Anterior ? Normal ? Base-Anterolateral ??Normal ? Base-Posterolateral Normal ? Base-Inferior ? Hypokinetic ? Base-Inferoseptal ?? Normal ? Mid-Anteroseptal ?Normal ? Mid-Anterior ?Normal ? Mid-Anterolateral ?? Normal ? Mid-Posterolateral ??Normal ? Mid-Inferior ?Hypokinetic ? Mid-Inferoseptal ?Normal ? [place]-Septal ? Normal ? [place]-Anterior ? Normal ? [place]-Lateral ?Normal ? [place]-Inferior ? Normal ? [place]-Tip ?Normal ? This report has been electronically signed by: Neo Rodriguez MD ? 07/30/2017 12:57:34 Images reviewed and interpretation verified [facility] Cardiac Ultrasound Laboratory Procedure Note Neo Rodriguez MD - 07/30/2017 Procedure: Transthoracic Echocardiogram Patient: JORDYN Barnes DOB(Age): 1965(52y) Med Rec#: [id number] Sex: F Site Loc: [facility] Ht / Wt: 170(cm)/80(kg) Pt. Loc: Adult Floor BSA: 1.92 Study Date: 07/30/2017 Pt. 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 The left ventricular chamber size is normal. The quantitative left ventricular ejection fraction by biplane Spears's method is 62%. The basal inferior, and mid inferior wall segments are hypokinetic (score 2). 2. Right ventricular chamber size and systolic function are within normal limits. The estimated pulmonary artery systolic pressure is 31 mmHg. 3. There is no hemodynamically significant valve disease. 4. See remainder of report for additional findings. Findings : Study Quality: Adequate Left Ventricle: The left ventricular chamber size is normal. Left ventricular wall thickness is normal. There is normal global left ventricular systolic function. The quantitative left ventricular ejection fraction by biplane Spears's method is 62%. There are left ventricular segmental wall motion abnormalities present, as shown in the diagram below. Doppler assessment is consistent with normal left sided filling pressure. The basal inferior, and mid inferior wall segments are hypokinetic (score 2). Overall wallmotion score index is 1.13 Left Atrium: The left atrium is normal in size. (34 ml/m2 by volume index) Right Ventricle: Right ventricular chamber size, wall thickness, and systolic function are within normal limits. The estimated pulmonary artery systolic pressure is 31 mmHg. The estimated right atrial pressure is 3 mmHg. Right Atrium: The right atrium appears normal. Aortic Valve: The aortic valve is trileaflet. The leaflets are thin with normal excursion. There is no aortic stenosis or regurgitation present. Mitral Valve: The mitral valve appears normal in structure and function. There is mild (1+/4+) mitral regurgitation present. Tricuspid Valve: The tricuspid valve appears normal in structure and function. There is trace tricuspid regurgitation present. Pulmonic Valve: The pulmonic valve appears normal in structure and function. Pericardium: The pericardium appears normal and there is no evidence of a pericardial effusion. Aorta: The aortic root is normal in size. There is mild dilatation of the ascending aorta. Pulmonary Artery: The main pulmonary artery appears normal. Venous: The inferior vena cava appears normal in size. There is a greater than 50% respiratory change in the inferior vena cava dimension. Misc: There is no hemodynamically significant valve disease. See remainder of report for additional findings. Two-dimensional echo, spectral Doppler and color Doppler performed. Chambers 2D Value Units (Range) IVSd (2D) 0.9 cm LVPWd (2D) 1 cm IVS:LVPW ratio (2D) 0.9 ratio RWT (2D) 0.4 ratio RWT PW (2D) 0.4 ratio LVIDd (2D) 4.8 cm LVIDs (2D) 2.8 cm LVIDd (2D) index 2.5 cm/m2 LVIDs (2D) index 1.4 cm/m2 LV FS (2D) 43 % EF Teichholz (2D) 74 % Ao root diameter (2D3.4 cm (2.1 - 3.6) Ascending Ao 3.7 cm (2 - 3.5) Volumes/Mass Value Units (Range) LA Area 4 CH 22 cm2 (<21) RA AREA 4CH 16.5 cm2 LA ESV BP (MOD) inde33.9 ml/m2 LV ESV SP 4CH (MOD) 27 ml LV ESV SP 2CH (MOD) 24 ml LV EDV BP 69 ml LV ESV BP 26 ml LV EDV BP index 35.9 ml/m2 LV ESV BP index 13.5 ml/m2 BP EF (MOD) 62 % LV mass (2D) 167.2 g LV mass (2D) index 87.1 g/m2 Diastolic/Systolic Function Value Units (Range) MV E-wave Vmax 0.5 m/sec MV deceleration [id number] msec MV A-wave Vmax 0.5 m/sec MV E:A ratio 1.1 ratio LV septal e' Vmax 0.1 m/sec LV lateral e' Vmax 0.1 m/sec LV average e' Vmax 0.1 m/sec LV E:e' septal ratio9.9 ratio LV E:e' lateral rati6 ratio LV average E:e' rati7.1 ratio Tricuspid Valve Value Units (Range) TAPSE 2.2 cm TR Vmax 2.6 m/sec TR peak gradient 27.9 mmHg RAP 3 mmHg RVSP 31 mmHg Wall Motion: Segment Name Rest Base-Anteroseptal Normal Base-Anterior Normal Base-Anterolateral Normal Base-Posterolateral Normal Base-Inferior Hypokinetic Base-Inferoseptal Normal Mid-Anteroseptal Normal Mid-Anterior Normal Mid-Anterolateral Normal Mid-Posterolateral Normal Mid-Inferior Hypokinetic Mid-Inferoseptal Normal [place]-Septal Normal [place]-Anterior Normal [place]-Lateral Normal [place]-Inferior Normal [place]-Tip Normal This report has been electronically signed by: Neo Rodriguez MD 07/30/2017 12:57:34 Images reviewed and interpretation verified [facility] Cardiac Ultrasound Laboratory Vinh Henderson MD ECHO ORDERABLES * EKG 12 Lead (07/30/2017 7:20 AM EDT) Ventricular rate 58 BPM MUSE SYSTEM Atrial Rate 58 BPM MUSE SYSTEM P-R Interval 158 ms MUSE SYSTEM QRS Duration 90 ms MUSE SYSTEM Q-T Interval 466 ms MUSE SYSTEM QTC Calculated (Bezet) 457 ms MUSE SYSTEM Calculated P Pinola 40 degrees MUSE SYSTEM Calculated R Pinola -30 degrees MUSE SYSTEM Calculated T Pinola -17 degrees MUSE SYSTEM INTERPRETATION Sinus bradycardia Left axis deviation RSR' or QR pattern in V1 suggests right ventricular conduction delay Nonspecific T wave abnormality Inferior leads Abnormal ECG Confirmed by MD Ivan, Chetan ([id number]) on 07/30/2017 11:51:19 AM MUSE SYSTEM 07/30/2017 7:20 AM EDT 07/30/2017 11:51 AM EDT Vinh Henderson MD ECG ORDERABLES MUSE SYSTEM * XR Chest PA & Lateral (Generic) (07/30/2017 6:54 AM EDT) Anatomical Region Laterality Modality Chest N/A Digital Radiogra phy Impressions 07/30/2017 7:26 AM EDT No acute cardiopulmonary process seen. I have personally reviewed the image(s) and the residents interpretation and agree with the findings, Nestor Chavarria at 07/30/2017 7:26 AM Narrative 07/30/2017 7:26 AM EDT EXAMINATION: XR CHEST PA AND LATERAL (GENERIC) CLINICAL HISTORY: Chest pain TECHNIQUE: PA and lateral upright views of the chest COMPARISON: Radiograph 07/29/2017 and 02/14/2011 FINDINGS: Mild streaky bibasilar subsegmental atelectasis and/or scarring. No confluent airspace opacity, pleural effusion, or pneumothorax definitively identified. Cardiomediastinal contours without appreciable change. Lower cervical spine fusion hardware and two screws fixating the right AC joint redemonstrated. Procedure Note Nestor Chavarria MD - 07/30/2017 EXAMINATION: XR CHEST PA AND LATERAL (GENERIC) CLINICAL HISTORY: Chest pain TECHNIQUE: PA and lateral upright views of the chest COMPARISON: Radiograph 07/29/2017 and 02/14/2011 FINDINGS: Mild streaky bibasilar subsegmental atelectasis and/or scarring. Noconfluent airspace opacity, pleural effusion, or pneumothorax definitivelyidentified. Cardiomediastinal contours without appreciable change. Lower cervicalspine fusion hardware and two screws fixating the right AC jointredemonstrated. IMPRESSION No acute cardiopulmonary process seen. I have personally reviewed the image(s) and the residents interpretationand agree with the findings, Nestor Chavarria at 07/30/2017 7:26 AM Vinh Henderson MD IMG DX ORDERABLES * Differential, Automated (07/30/2017 6:20 AM EDT) Neutrophils % 64.7 % [facility] Neutr Abs (ANC) 4.98 1.70 - 6.10 x10(3)/[facility] Lymphocytes % 20.6 % [facility] Lymphocytes Abs 1.6 0.9 - 3.2 x10(3)/[facility] Monocytes % 11.7 % [facility] Monocyte Abs 0.9 0.3 - 0.9 x10(3)/[facility] Eosinophils % 2.0 % [facility] Eosinophils Abs 0.2 0.0 - 0.4 x10(3)/[facility] Basophils % 0.7 % [facility] Basophils Abs 0.0 0.0 - 0.1 x10(3)/[facility] Immature Gran % 0.30 % [facility] Comment: Immature granulocytes(IG's)percentage and absolute count will include metamyelocytes, myelocytes, and promyelocytes. Blood smears from CBCs yielding IG's will be scanned manually for concordance. If this scan disagrees with the automated IG or if promyelocytes are noted, a manual differential will be performed. Patsy Gran Abs 0.02 0.00 - 0.04 x10(3)/[facility] Blood specimen (specimen) 07/30/2017 6:20 AM EDT 07/30/2017 6:32 AM EDT Narrative Resulting Agency Comment Spec In Lab Neo Rodriguez MD HEMATOLOGY ORDERABLE S [facility] [place] [place] [address] * (ABNORMAL) Hemogram (07/30/2017 6:20 AM EDT) WBC 7.7 4.0 - 9.5 x10(3)/[facility] RBC 5.34(H) 4.00 - 5.21 x10(6)/[facility] Hemoglobin 16.4(H) 11.7 - 15.5 gm/dL [facility] Hematocrit 48.4(H) 35.7 - 45.8 % [facility] MCV 90.6 82.6 - 94.4 [facility] MCH 30.7 27.1 - 32.0 pg [facility] MCHC 33.9 31.7 - 35.0 gm/dL [facility] Platelets 180 145 - 357 x10(3)/[facility] RDWSD 48.8(H) 37.0 - 46.0 [facility] RDWCV 14.7(H) 11.5 - 14.1 % [facility] MPV 10.5 7.6 - 12.9 [facility] nRBC % Auto 0.0 % [facility] nRBC Abs Auto 0.000 0.000 - 0.000 x10(3)/[facility] Blood specimen (specimen) 07/30/2017 6:20 AM EDT 07/30/2017 6:32 AM EDT Narrative Resulting Agency Comment Spec In Lab Neo Rodriguez MD HEMATOLOGY ORDERABLE S Performing Organization Address City/[facility]/ZIP Co de Phone Number [facility] [place] [place] [address] * Basic Metabolic Panel (non-fasting) (07/30/2017 6:20 AM EDT) Glucose Lvl 98 65 - 199 mg/dL [facility] Comment:Diabetes: >=200 mg/d L plus symptoms BUN 11 8 - 18 mg/dL [facility] Creatinine 0.87 0.70 - 1.20 mg/dL [facility] Sodium 138 135 - 145 mmol/L [facility] Potassium 4.3 3.5 - 5.0 mmol/L [facility] Comment: Please note: ??Patients with WBC >100,000 may have falsely elevated Potassium levels. ??For accurate Potassium quantification in these patients send serum separator tube (gold top) for subsequent determinations. ??Contact the Clinical Chemistry Laboratory if there are any questions. Chloride 102 98 - 107 mmol/L [facility] CO2 27 22 - 31 mmol/L [facility] Anion Gap 9 5 - 15 mmol/L [facility] Calcium 8.7 8.5 - 10.5 mg/dL [facility] Estimated GFR >60 >=60 [facility] Comment: The reported eGFR should be multiplied by 1.2 for patients. The MDRD is not an appropriate measure of renal function for patients with body mass extremes or in patients with acute kidney failure. http://[employer].JotSpot/DHnkdep http://[employer]otSpot/DHMCnkf Blood specimen (specimen) 07/30/2017 6:20 AM EDT 07/30/2017 6:32 AM EDT Narrative Resulting Agency Comment Spec In Lab Neo Rodriguez MD CHEMISTRY ORDERABLES Performing Organization Address City/[facility]/ZIP Co de Phone Number [facility] [place] [place] [address] * Lipid Panel (07/30/2017 6:20 AM EDT) Chol, Total 163 <=239 mg/dL [facility] Triglycerides 91 <=199 mg/dL [facility] HDL 50 >=40 mg/dL [facility] LDL Cholesterol 95 <=190 mg/dL [facility] Chol/HDL Ratio 3.3 ratio [facility] Lipid Interpretation See Note [facility] Comment: Lipid management should be guided by a patient? s ASCVD risk, goals and preferences. ACC/AHA Guidelines recommend high intensity statin if clinical ASCVD or LDL greater than or equal to 190 mg/dL. http://vushaper/IND-CBB-Zgfbggmcl Adults aged 40-75 with LDL 70-189 mg/dL should have their 10 year ASCVD risk estimated with the ACC/AHA ASCVD risk slip cover estimator http://tools.acc.org/KQJLR-Zzne-Cngynobmw/ Statin should be discussed if risk greater than or equal to 7.5% in non-diabetics. With diabetes, moderate intensity statin is recommended if risk less than 7.5%, high intensity if risk greater than or equal to 7.5%. Annual lipid monitoring on statins is not necessary. Evaluate secondary causes of Triglycerides greater than 500 mg/dL or LDL greater than 190 mg/dL: See table 6 of ACC/AHA Guideline. Lifestyle modification is a critical component of ASCVD risk reduction. Blood specimen (specimen) 07/30/2017 6:20 AM EDT 07/30/2017 6:32 AM EDT Narrative Resulting Agency Comment Spec In Lab Vinh Henderson MD CHEMISTRY ORDERABLES [facility] [place] [place] [address] * (ABNORMAL) Cardiac Enzymes (07/30/2017 6:20 AM EDT) Troponin-T 0.13(H) 0.00 - 0.00 ng/mL [facility] Comment: The 99th percentile for Troponin [...] ischemia ?? New or presumed new significant VD-biafdbw-G wave (ST-T) changes or new left bundle [...] additional sample may be indicated. Reference: Third Cornell Definition of Myocardial Infarction. Journal of the [place] College [employer] 2012;60:1581-98 CK, Total 162(H) 0 - 160 unit/L [facility] Blood specimen (specimen) 07/30/2017 6:20 AM EDT 07/30/2017 6:33 AM EDT Narrative Resulting Agency Comment Spec In Lab Vinh Henderson MD CHEMISTRY ORDERABLES Performing Organization Address [facility]/State/[facility] Co de Phone Number [facility] [place] [address] * Urinalysis Microscopic Exam (07/30/2017 3:45 AM EDT) RBC UA 1 0 - 4 /HPF [facility] WBC UA <1 0 - 5 /HPF [facility] Squam Epith UA 1 <=4 /HPF [facility] Urine specimen (specimen) 07/30/2017 3:45 AM EDT 07/30/2017 3:58 AM EDT Narrative Resulting Agency Comment Spec In Lab Vinh Henderson MD URINE ORDERABLES Performing Organization Address City/[facility]/ZIP Co de Phone Number [facility] [place] [address] * Urine Hold (07/30/2017 3:45 AM EDT) Urine Hold Sample in lab. [facility] Urine specimen (specimen) Urine / Unknown 07/30/2017 3:45 AM EDT 07/30/2017 3:59 AM EDT Vinh Henderson MD URINE ORDERABLES Performing Organization Address [facility] Co de Phone Number [facility] [place] [place] [address] * (ABNORMAL) Urinalysis with reflex Culture (07/30/2017 3:45 AM EDT) Glucose UA Negative Negative mg/dL [facility] Protein UA Negative Negative mg/dL [facility] Bilirubin UA Negative Negative mg/dL [facility] Comment: Clinical correlation required for positive Urine Bilirubin results as false positive may occur with some drugs and drug related products. If a false positive is suspected a serum total bilirubin should be considered if clinically indicated. Urobilinogen UA Normal Normal mg/dL [facility] pH UA 5.0 5.0 - 8.0 [facility] Blood UA Moderate(A) Negative mg/dL [facility] Ketones UA Negative Negative mg/dL [facility] Nitrite UA Negative Negative [facility] Leukocytes UA Negative Negative [facility] Appearance UA Clear Clear [facility] Spec Bob White UA >1.035(H) 1.002 - 1.030 [facility] Color UA Yellow Yellow [facility] Culture Reflexed No [facility] Urine specimen (specimen) 07/30/2017 3:45 AM EDT 07/30/2017 3:58 AM EDT Narrative Resulting Agency Comment Spec In Lab Vinh Henderson MD URINE ORDERABLES Performing Organization Address City/[facility]/ZIP Co de Phone Number [facility] [place] [address] * (ABNORMAL) Cardiac Enzymes (07/29/2017 11:39 PM EDT) [facility] Troponin-T 0.22(H) 0.00 - 0.00 ng/mL [facility] Comment: The 99th percentile for Troponin [...] ischemia ?? New or presumed new significant LJ-spdxups-V wave (ST-T) changes or new left bundle [...] additional sample may be indicated. Reference: Third Cornell Definition of Myocardial Infarction. Journal of the [place] College [employer]iology 2012;60:1581-98 CK, Total 178(H) 0 - 160 unit/L [facility] Blood specimen (specimen) 07/29/2017 11:39 PM EDT 07/29/2017 11:44 PM EDT Narrative Resulting Agency Comment Spec In Lab Vinh Henderson MD CHEMISTRY ORDERABLES Performing Organization Address City/[facility]/ZIP Co de Phone Number [facility] [place] [place] [address] * EKG 12 Lead (07/29/2017 7:10 PM EDT) [facility] Ventricular rate 50 BPM MUSE SYSTEM Atrial Rate 50 BPM MUSE SYSTEM P-R Interval 178 ms MUSE SYSTEM QRS Duration 84 ms MUSE SYSTEM Q-T Interval 498 ms MUSE SYSTEM QTC Calculated (Bezet) 454 ms MUSE SYSTEM Calculated P Pinola 37 degrees MUSE SYSTEM Calculated R [place] -16 degrees MUSE SYSTEM Calculated T [place] -7 degrees MUSE SYSTEM INTERPRETATION Sinus bradycardia RSR' or QR pattern in V1 suggests right ventricular conduction delay Borderline ECG Confirmed by MD Love Douglas ([id number]) on 07/30/2017 11:50:35 AM MUSE SYSTEM 07/29/2017 7:10 PM EDT 07/30/2017 11:50 AM EDT Vinh Henderson MD ECG ORDERABLES MUSE SYSTEM * (ABNORMAL) Differential, Automated (07/29/2017 6:25 PM EDT) Neutrophils % 48.9 % [facility] Neutr Abs (ANC) 4.38 1.70 - 6.10 x10(3)/[facility] Lymphocytes % 37.2 % [facility] Lymphocytes Abs 3.3(H) 0.9 - 3.2 x10(3)/[facility] LABOR[facility] Monocytes % 10.5 % [facility] Monocyte Abs 0.9 0.3 - 0.9 x10(3)/[facility] Eosinophils % 2.5 % [facility] Eosinophils Abs 0.2 0.0 - 0.4 x10(3)/[facility] Basophils % 0.7 % [facility] Basophils Abs 0.1 0.0 - 0.1 x10(3)/[facility] LABORATORY Immature Gran % 0.20 % [facility] Comment: Immature granulocytes(IG's)percentage and absolute count will include metamyelocytes, myelocytes, and promyelocytes. Blood smears from CBCs yielding IG's will be scanned manually for concordance. If this scan disagrees with the automated IG or if promyelocytes are noted, a manual differential will be performed. Patsy Gran Abs 0.02 0.00 - 0.04 x10(3)/ L [facility] Blood specimen (specimen) 07/29/2017 6:25 PM EDT 07/29/2017 6:43 PM EDT Narrative Resulting Agency Comment Spec In Lab Vinh Henderson MD HEMATOLOGY ORDERABLE S [facility] [place] [place] [address] * (ABNORMAL) Hemogram (07/29/2017 6:25 PM EDT) WBC 9.0 4.0 - 9.5 x10(3)/[facility] LABORATORY RBC 5.18 4.00 - 5.21 x10(6)/[facility]ORATORY Hemoglobin 15.5 11.7 - 15.5 gm/dL [facility] Hematocrit 47.7(H) 35.7 - 45.8 % [facility] MCV 92.1 82.6 - 94.4 [facility]ORATORY MCH 29.9 27.1 - 32.0 pg [facility] MCHC 32.5 31.7 - 35.0 gm/dL [facility] Platelets 194 145 - 357 x10(3)/[facility] LABORATORY RDWSD 51.1(H) 37.0 - 46.0 [facility] RDWCV 14.9(H) 11.5 - 14.1 % [facility] MPV 10.4 7.6 - 12.9 [facility] nRBC % Auto 0.0 % [facility] nRBC Abs Auto 0.000 0.000 - 0.000 x10(3)/[facility] Blood specimen (specimen) 07/29/2017 6:25 PM EDT 07/29/2017 6:43 PM EDT Narrative Resulting Agency Comment Spec In Lab Vinh Henderson MD HEMATOLOGY ORDERABLE S Performing Organization Address City/[facility]/ZIP Co de Phone Number [facility] [place] [place] [address] * (ABNORMAL) Cardiac Enzymes (07/29/2017 6:25 PM EDT) [facility] Troponin-T 0.17(H) 0.00 - 0.00 ng/mL [facility] Comment: The 99th percentile for Troponin [...] ischemia ?? New or presumed new significant XD-eqahabb-E wave (ST-T) changes or new left bundle [...] additional sample may be indicated. Reference: Third Cornell Definition of Myocardial Infarction. Journal of the [place] [employer] 2012;60:1581-98 CK, Total 193(H) 0 - 160 unit/L [facility] Blood specimen (specimen) 07/29/2017 6:25 PM EDT 07/29/2017 6:43 PM EDT Narrative Resulting Agency Comment Spec In Lab Vinh Henderson MD CHEMISTRY ORDERABLES [facility] [place] [place] [address] * (ABNORMAL) pro-Brain Natriuretic Peptide (07/29/2017 6:25 PM EDT) [facility] ProBNP 342(H) <=125 pg/mL [facility] Blood specimen (specimen) 07/29/2017 6:25 PM EDT 07/29/2017 6:43 PM EDT Narrative Resulting Agency Comment Spec In Lab Vinh Henderson MD CHEMISTRY ORDERABLES Performing Organization Address City/[facility]/ZIP Co de Phone Number [facility] [place] [place] [address] * TSH (07/29/2017 6:25 PM EDT) TSH 2.10 0.27 - 4.20 mlU/ML [facility] Blood specimen (specimen) 07/29/2017 6:25 PM EDT 07/29/2017 6:43 PM EDT Narrative Resulting Agency Comment Spec In Lab Vinh Henderson MD CHEMISTRY ORDERABLES Performing Organization Address [facility] Co de Phone Number [facility] [place] [address] * Magnesium (07/29/2017 6:25 PM EDT) Magnesium 0.85 0.69 - 1.07 mmol/L [facility] Blood specimen (specimen) 07/29/2017 6:25 PM EDT 07/29/2017 6:43 PM EDT Narrative Resulting Agency Comment Spec In Lab Vinh Henderson MD CHEMISTRY ORDERABLES Performing Organization Address [facility] Co de Phone Number [facility] [place] [place] [address] * Calcium (07/29/2017 6:25 PM EDT) Calcium 8.6 8.5 - 10.5 mg/dL [facility] Blood specimen (specimen) 07/29/2017 6:25 PM EDT 07/29/2017 6:43 PM EDT Narrative Resulting Agency Comment Spec In Lab Vinh Henderson MD CHEMISTRY ORDERABLES Performing Organization Address City/[facility]/ZIP Co de Phone Number [facility] [place] [place] [address] * Basic Metabolic Panel (non-fasting) (07/29/2017 6:25 PM EDT) Glucose Lvl 70 65 - 199 mg/dL [facility] Comment:Diabetes: >=200 mg/d L plus symptoms BUN 13 8 - 18 mg/dL [facility] Creatinine 0.88 0.70 - 1.20 mg/dL [facility] Sodium 139 135 - 145 mmol/L [facility] Potassium 4.6 3.5 - 5.0 mmol/L [facility] Comment: Please note: ??Patients with WBC >100,000 may have falsely elevated Potassium levels. ??For accurate Potassium quantification in these patients send serum separator tube (gold top) for subsequent determinations. ??Contact the Clinical Chemistry Laboratory if there are any questions. Chloride 102 98 - 107 mmol/L [facility] CO2 26 22 - 31 mmol/L [facility] Anion Gap 11 5 - 15 mmol/L [facility] Calcium 8.6 8.5 - 10.5 mg/dL [facility] Estimated GFR >60 >=60 [facility] Comment: The reported eGFR should be multiplied by 1.2 for patients. The MDRD is not an appropriate measure of renal function for patients with body mass extremes or in patients with acute kidney failure. [email or web address]/DHnkdep [email or web address]/DHMCnkf Blood specimen (specimen) 07/29/2017 6:25 PM EDT 07/29/2017 6:43 PM EDT Narrative Resulting Agency Comment Spec In Lab Vinh Henderson MD CHEMISTRY ORDERABLES Performing Organization Address [facility]/ZIP Co de Phone Number [facility] [place] [place] [address] * CARDIAC CATHETERIZATION (07/29/2017 6:22 PM EDT) Anatomical Region Laterality Modality Other Narrative 07/29/2017 6:53 PM EDT ?[facility] ? Cardiac Catheterization/Intervention Report ? Patient Name: Sahra Williamson. ? Procedure Date: 07/29/2017 ? A #: [id number] ? Primary Physician: Jim Chen ? Case #: [id number] ? File Name: [id number] ? Catheterization Order Number: [id number] ? [facility] ? Final Report [place], [place] ? Patient Name: ? Sahra Williamson ? ID#: ?[id number] ? : ?1965 ? Procedure Date: ? July 29, 2017 ? Case #: ? [id number] ? Room: ? 6 ? Case Physician: ? Jim Chen M.D. ? Start: ?17:09 ?Fellow: ? Wendi Lucia M.D. ? Admission: ??07/29/2017 ?Cosmo Saeed M.D. ? Discharge: ??07/30/2017 ? Referring ? Asya Hand M.D. ? Physicians: ?Jose Maria Yancey M.D. ? Procedures: ?* Coronary Angiography ?* Left Heart Catheterization ?* Coronary Stent Insertion ?* Vascular Closure Device Deployment ?* Access Site Angiography ? History ?Sahra Barnes. Jordyn is a 52 year old woman. She has hypertension and a family ?history of coronary artery disease. The patient has a history of smoking ?and is still smoking. She has untreated hypercholesterolemia. The patient ?has unstable angina, unknown troponin, a history of chest pain and a ?prior history of coronary artery disease. She is status post a recent ?non-ST elevation myocardial infarction. The patient has a remote cerebral ?vascular accident. She has a history of chronic obstructive pulmonary ?disease. The patient also has a history of an abnormal EKG. Prior to the ?initiation of this procedure, the patient was designated as ASA Class IV. ? Patient Status at Catheterization: ?The patient presented with: unstable angina (w/i 60 days). [place] ?Cardiovascular Society angina class was III. This patient was on beta ?blockers prior to the procedure. No stress or imaging studies were ?performed prior to this procedure. The status of the diagnostic procedure ?was Urgent. ? Technique: ?A 6Fr sheath was inserted in the right femoral artery utilizing the ?Seldinger technique. The left coronary artery was injected utilizing a ?5Fr JL 4 catheter. A 5Fr 3DRC catheter was used to inject the right ?coronary artery. Left ventricular pressure was performed with a 5Fr ?Angled pigtail catheter. Coronary stent insertion was performed and the ?equipment utilized will be described in the intervention summary section. ?6,000 units of heparin were administered. A total of 200cc of Omnipaque ?were opened, 155cc of Omnipaque were administered and 45cc of Omnipaque ?were wasted. Radiation: Fluoro time was 7.4 minutes, dose area product ?was 74,967 mGYcm2 and air kerma was 1,118 mGY. ?The patient received the following medications prior to and during the ?procedure: Aspirin (any), Clopidogrel and Unfractionated Heparin (any). ? Hemodynamics: ?Left Heart Pressures ? Resting: ? Syst Diast ? EDP ?a ?v ? m ?Ao 111 ?? 65 ?85 ?LV 105 ? 15 ? Coronary Angiography: ?Dominance: Right ?Left Main ? The left main was normal, free of disease. ?Left Anterior Descending ? There was mild diffuse (<=25% stenosis) disease of the entire vessel ? segment of the left anterior descending artery (LAD) and it was ? calcified. ??The LAD was large. ??The mid segment of the LAD had a ? calcified single discrete 75% stenosis. ?Left Circumflex ? There was mild diffuse (<=25% stenosis) disease of the entire vessel ? segment of the left circumflex artery (LCX) and it was tortuous. ? The LCX was large. ? Systolic compression proximal OM2. ?Right Coronary Artery ? There was mild diffuse (<=25% stenosis) disease of the entire vessel ? segment of the right coronary artery (RCA). ??The RCA was large. ??The ? mid segment of the RCA had a single discrete 90% stenosis. ??There ? also was a 50% single discrete stenosis of the distal segment of the ? RCA. ? Indication for Intervention: ?Coronary intervention was indicated for treatment of high risk unstable ?angina. Left Ventricular Ejection fraction was not assessed. The priority ?for the procedure was Urgent. The NCDR indication for the procedure was ?PCI for high risk Non-STEMI or unstable angina. ? Intervention Summary: ?Left Anterior Descending Artery ? Mid 75% ? Stent insertion was performed on the 75% stenosis in the mid ? segment of the LAD. This was a de neeraj lesion. According to ? the ACC/AHA classification system, this lesion was a type B2 ? high risk lesion. Primary prevention of restenosis was the ? indication for stent insertion. Vessel flow pre intervention ? was TANIKA 3. ? Stent insertion was accomplished through a 6 Fr. EBU 4.0 ? guide. ??The lesion was predilated with a 2.50mm EUPHORA 12 MM ? balloon with a maximum inflation pressure of 15 atmospheres. ? A premounted 2.75 x 12 mm Resolute PRISCILA (MARY) was deployed ? with a maximum inflation pressure of 18 atmospheres. ? Following stent deployment, the lesion was dilated using a ? 3.00mm NC EUPHORA 08 MM balloon with a maximum inflation ? pressure of 22 atmospheres. ? The final outcome was defined as successful. There was no ? residual stenosis following this intervention. The final TANIKA ? flow was 3. ?Right Coronary Artery ? Mid 90% ? Stent insertion was performed on the 90% stenosis in the mid ? segment of the RCA. This was a de neeraj lesion. This lesion was ? designated a type B2 high risk lesion based on ACC/AHA ? classification system. Primary prevention of restenosis was ? the indication for stent insertion. This was the culprit ? lesion. Vessel flow pre intervention was TANIKA 3. ? Stent insertion was accomplished through a 6 Fr. JR 4 guide. ? The lesion was predilated with a 2.50mm EUPHORA 12 MM balloon ? with a maximum inflation pressure of 15 atmospheres. ??A ? premounted 3.50 x 18 mm Resolute PRISCILA (MARY) was deployed with ? a maximum inflation pressure of 18 atmospheres. ? The final outcome was defined as successful. There was no ? residual stenosis following this intervention. The final TANIKA ? flow was 3. ? Vascular Access: ?Vascular Access Angiogram: ? A selective angiogram at the right femoral artery revealed mild ? diffuse disease. ?Vascular Access Management: ? A 6 Fr Perclose was deployed at the right femoral artery access ? site. This device was successful. ? Dual Antiplatelet (DAPT) Recommendations: ?Drug eluting stent (MARY) inserted. ?P2Y12 Loading dose administered prior to arrival in the labor relations officer. ?Recommend continuing clopidogrel 75 mg PO daily for 12 months. ??Recommend ?continuing aspirin 81 mg unless intolerant. ?The DAPT score is 2. ??The DAPT score calculates net clinical benefit of ?prolonged dual antiplatelet therapy following percutaneous coronary ?intervention. A DAPT Score of equal or greater than 2 suggests an ?increased risk of late stent thrombosis and MACCE. If the DAPT score is ?equal or greater than 2 and the patient tolerates the recommended ?duration of DAPT without bleeding or side effects, consider extending the ?DAPT to 30 months post procedure. ? Conclusions: ?* Two vessel coronary artery disease (LAD and RCA) ?* Successful stent insertion of the mid RCA lesion ?* Successful stent insertion of the mid LAD lesion ?* Recommend continuing clopidogrel 75 mg PO daily for 12 months (see DAPT ?Recommendations above for more information.) ? Complications/Events: ?The patient had no complications during these procedures. ?The attending physician was present for the entire procedure. ?Dr. Jim Chen M.D. was present during the moderate sedation ?intraservice time as documented by the sedation nurse. ??Case time = 01:03. ?Dr. Jim Chen M.D. performed the coronary angiography, left heart ?catheterization, stent insertion-coronary, access site angiography and ?vascular closure device. ? Jim Chen M.D. ? Electronically Signed by: Jim Chen M.D. ? Report Finalized: 07/29/2017 ??18:42 ? Report Last Ammended: 12/22/2017 ??11:11 ? Procedure Note Jim Chen MD - 12/22/2017 [facility] Cardiac Catheterization/Intervention Report Patient Name: Sahra WilliamsonFloresita Procedure Date: 07/29/2017 A #: [id number] Primary Physician: Jim Chen Case #: [id number] File Name: [id number] Catheterization Order Number: [id number] [facility] FinalReport [place], [place] Patient Name: Sahra Williamson ID#:[id number] :1965 Procedure Date: July 29, 2017 Case #: [id number] Room: 6 Case Physician: Jim Chen M.D. Start: 17:09 Fellow: Wendi Lucia M.D. Admission:07/29/2017 Cosmo Saeed M.D. Discharge:07/30/2017 Referring Asya Hand M.D. Physicians: Jose Maria Yancey M.D. Procedures: * Coronary Angiography * Left Heart Catheterization * Coronary Stent Insertion * Vascular Closure Device Deployment * Access Site Angiography History Sahra Williamson is a 52 year old woman. She has hypertension and afamily history of coronary artery disease. The patient has a history ofsmoking and is still smoking. She has untreated hypercholesterolemia. Thepatient has unstable angina, unknown troponin, a history of chest pain and a prior history of coronary artery disease. She is status post arecent non-ST elevation myocardial infarction. The patient has a remotecerebral vascular accident. She has a history of chronic obstructivepulmonary disease. The patient also has a history of an abnormal EKG. Prior tothe initiation of this procedure, the patient was designated as ASAClass IV. Patient Status at Catheterization: The patient presented with: unstable angina (w/i 60 days). [place] [employer] Society angina class was III. This patient was onbeta blockers prior to the procedure. No stress or imaging studies were performed prior to this procedure. The status of the diagnosticprocedure was Urgent. Technique: A 6Fr sheath was inserted in the right femoral artery utilizing the Seldinger technique. The left coronary artery was injected utilizinga 5Fr JL 4 catheter. A 5Fr 3DRC catheter was used to inject the right coronary artery. Left ventricular pressure was performed with a 5Fr Angled pigtail catheter. Coronary stent insertion was performed andthe equipment utilized will be described in the intervention summarysection. 6,000 units of heparin were administered. A total of 200cc ofOmnipaque were opened, 155cc of Omnipaque were administered and 45cc ofOmnipaque were wasted. Radiation: Fluoro time was 7.4 minutes, dose areaproduct was 74,967 mGYcm2 and air kerma was 1,118 mGY. The patient received the following medications prior to and duringthe procedure: Aspirin (any), Clopidogrel and Unfractionated Heparin(any). Hemodynamics: Left Heart Pressures Resting: Syst Diast EDP a v m Ao 111 65 85 LV 105 15 Coronary Angiography: Dominance: Right Left Main The left main was normal, free of disease. Left Anterior Descending There was mild diffuse (<=25% stenosis) disease of the entirevessel segment of the left anterior descending artery (LAD) and it was calcified. The LAD was large. The mid segment of the LAD hada calcified single discrete 75% stenosis. Left Circumflex There was mild diffuse (<=25% stenosis) disease of the entirevessel segment of the left circumflex artery (LCX) and it wastortuous. The LCX was large. Systolic compression proximal OM2. Right Coronary Artery There was mild diffuse (<=25% stenosis) disease of the entirevessel segment of the right coronary artery (RCA). The RCA was large.The mid segment of the RCA had a single discrete 90% stenosis.There also was a 50% single discrete stenosis of the distal segmentof the RCA. Indication for Intervention: Coronary intervention was indicated for treatment of high riskunstable angina. Left Ventricular Ejection fraction was not assessed. Thepriority for the procedure was Urgent. [facility] for the procedurewas PCI for high risk Non-STEMI or unstable angina. Intervention Summary: Left Anterior Descending Artery Mid 75% Stent insertion was performed on the 75% stenosis in themid segment of the LAD. This was a de neeraj lesion. Accordingto the ACC/AHA classification system, this lesion was a typeB2 high risk lesion. Primary prevention of restenosis wasthe indication for stent insertion. Vessel flow preintervention was TANIKA 3. Stent insertion was accomplished through a 6 Fr. EBU 4.0 guide. The lesion was predilated with a 2.50mm [id number] MM balloon with a maximum inflation pressure of 15atmospheres. A premounted 2.75 x 12 mm Resolute PRISCILA (MARY) wasdeployed with a maximum inflation pressure of 18 atmospheres. Following stent deployment, the lesion was dilated usinga 3.00mm NC EUPHORA 08 MM balloon with a maximum inflation pressure of 22 atmospheres. The final outcome was defined as successful. There was no residual stenosis following this intervention. The finalTIMI flow was 3. Right Coronary Artery Mid 90% Stent insertion was performed on the 90% stenosis in themid segment of the RCA. This was a de neeraj lesion. Thislesion was designated a type B2 high risk lesion based on ACC/AHA classification system. Primary prevention of restenosiswas the indication for stent insertion. This was the culprit lesion. Vessel flow pre intervention was TANIKA 3. Stent insertion was accomplished through a 6 Fr. JR 4guide. The lesion was predilated with a 2.50mm EUPHORA 12 MMballoon with a maximum inflation pressure of 15 atmospheres. A premounted 3.50 x 18 mm Resolute PRISCILA (MARY) was deployedwith a maximum inflation pressure of 18 atmospheres. The final outcome was defined as successful. There was no residual stenosis following this intervention. The finalTIMI flow was 3. Vascular Access: Vascular Access Angiogram: A selective angiogram at the right femoral artery revealed mild diffuse disease. Vascular Access Management: A 6 Fr Perclose was deployed at the right femoral artery access site. This device was successful. Dual Antiplatelet (DAPT) Recommendations: Drug eluting stent (MARY) inserted. P2Y12 Loading dose administered prior to arrival in the labor relations officer. Recommend continuing clopidogrel 75 mg PO daily for 12 months.Recommend continuing aspirin 81 mg unless intolerant. The DAPT score is 2. The DAPT score calculates net clinical benefitof prolonged dual antiplatelet therapy following percutaneous coronary intervention. A DAPT Score of equal or greater than 2 suggests an increased risk of late stent thrombosis and MACCE. If the DAPT scoreis equal or greater than 2 and the patient tolerates the recommended duration of DAPT without bleeding or side effects, considerextending the DAPT to 30 months post procedure. Conclusions: * Two vessel coronary artery disease (LAD and RCA) * Successful stent insertion of the mid RCA lesion * Successful stent insertion of the mid LAD lesion * Recommend continuing clopidogrel 75 mg PO daily for 12 months (seeDAPT Recommendations above for more information.) Complications/Events: The patient had no complications during these procedures. The attending physician was present for the entire procedure. Dr. Jim Chen M.D. was present during the moderate sedation intraservice time as documented by the sedation nurse. Case time =01:03. Dr. Jim Chen M.D. performed the coronary angiography, leftheart catheterization, stent insertion-coronary, access site angiography and vascular closure device. Jim Chen M.D. Electronically Signed by: Jim Chen M.D. Report Finalized: 07/29/2017 18:42 Report Last Ammended: 12/22/2017 11:11 Neo Rodriguez MD CARDIAC CATH ORDERAB LES * (ABNORMAL) APTT (07/29/2017 5:00 PM EDT) [facility] PTT >160.0(Cr itical) 25 - 35 [facility] Comment: Called by: EDGAR, Read back by: Mary Avitia, Date/Time:07/29/17 18:46. The recommended therapeutic range for full dose, unfractionated heparin at [facility] is 80 ? 114 seconds. The use of the anti-Xa (heparin) level rather than the PTT is recommended for monitoring anticoagulation intensity in critically ill patients receiving unfractionated heparin by continuous IV infusion. Blood specimen (specimen) 07/29/2017 5:00 PM EDT 07/29/2017 6:12 PM EDT Narrative Resulting Agency Comment Spec In Lab Neo Rodriguez MD HEMATOLOGY ORDERABLE S [facility] [place] [address] * EKG 12 Lead (07/29/2017 3:51 PM EDT) Pathologist [facility] Ventricular rate 51 BPM MUSE SYSTEM Atrial Rate 51 BPM MUSE SYSTEM P-R Interval 164 ms MUSE SYSTEM QRS Duration 84 ms MUSE SYSTEM Q-T Interval 486 ms MUSE SYSTEM QTC Calculated (Bezet) 447 ms MUSE SYSTEM Calculated P [place] 24 degrees MUSE SYSTEM Calculated R [place] -20 degrees MUSE SYSTEM Calculated T [place] -8 degrees MUSE SYSTEM INTERPRETATION Sinus bradycardia RSR' or QR pattern in V1 suggests right ventricular conduction delay Borderline ECG When compared with ECG of 05-FEB-2016 07:50, No significant change was found Confirmed by MD Love Douglas ([id number]) on 07/30/2017 11:49:57 AM MUSE SYSTEM 07/29/2017 3:51 PM EDT 07/30/2017 11:49 AM EDT Vinh Henderson MD ECG ORDERABLES MUSE SYSTEM * Film Library- Storage Only DX Chest (07/29/2017 12:00 AM EDT) Narrative [facility] - 07/29/2017 5:25 PM EDT This exam is for storage only and is auto-finalizing. Neo Rodriguez MD IMG FILM LIBRARY ORD ERABLES Performing Organization Address [facility] Co de Phone Number [place], [place] documented in this encounter Visit Diagnoses Diagnosis NSTEMI (non-ST elevated myocardial infarction)- Primary Acute myocardial infarction, subendocardial infarction, episode of care unspecified Coronary artery disease, angina presence unspecified, unspecified vessel or lesion type, unspecified whether hughes or transplanted heart Coronary artery disease Coronary atherosclerosis of unspecified type of vessel, hughes or graft Hypertension Unspecified essential hypertension Hyperlipidemia Other and unspecified hyperlipidemia Chest pain Chest pain, unspecified Positive urine drug screen for amphetamines, opiates, buprenorphine on admission Nonspecific abnormal toxicological findings Tobacco use Tobacco use disorder documented in this encounter Admitting Diagnoses Diagnosis NSTEMI (non-ST elevated myocardial infarction) Acute myocardial infarction, subendocardial infarction, episode of care unspecified documented in this encounter Administered Medications Inactive Administered Medications - up to 3 most recent administrations Medication Order MAR Action Action Date Dose Rate Site acetaminophen (TYLENOL) tablet 500 mg 500 mg, Oral, EVERY 6 HOURS PRN, Starting on 07/30/17 at 1132, Until 07/30/17 at 1748, Pain, Maximum dose of acetaminophen is 4000 mg from all sources in 24 hours., Routine Given 07/30/2017 11:41 AM EDT 500 mg aspirin chewable tablet 325 mg 325 mg, Oral, ONCE, 1 dose, On Tue07/29/17 at 1630, STAT Given 07/29/2017 4:35 PM EDT 325 mg aspirin chewable tablet 81 mg 81 mg, Oral, DAILY, First dose on 07/30/17 at 0900, Until Discontinued, Routine Given 07/30/2017 9:22 AM EDT 81 mg atorvastatin (LIPITOR) tablet 40 mg 40 mg, Oral, EVERY EVENING, First dose on Tue07/29/17 at 1700, Until Discontinued, Routine Given 07/29/2017 4:35 PM EDT 40 mg atorvastatin (LIPITOR) tablet 40 mg 40 mg, Oral, ONCE, 1 dose, On 07/30/17 at 1045, Routine Given 07/30/2017 11:41 AM EDT 40 mg atorvastatin (LIPITOR) tablet 40 mg 40 mg, Oral, EVERY EVENING, First dose on 07/31/17 at 1700, Until Discontinued, Routine clopidogrel (PLAVIX) tablet 600 mg 600 mg, Oral, ONCE, 1 dose, On Tue07/29/17 at 1630, Cath (Day of Procedure), STAT Given 07/29/2017 4:35 PM EDT 600 mg clopidogrel (PLAVIX) tablet 75 mg 75 mg, Oral, DAILY, First dose on 07/30/17 at 0945, Until Discontinued, Routine Given 07/30/2017 9:33 AM EDT 75 mg FLUoxetine (PROzac) capsule 40 mg 40 mg, Oral, DAILY, First dose on Tue07/29/17 at 1800, Until Discontinued, Routine Given 07/30/2017 9:22 AM EDT 40 mg heparin (porcine) injection 0-4,000 Units 0-4,000 Units, Intravenous, BOLUS PER HEPARIN PROTOCOL, Starting on Tue07/29/17 at 1609, Until 07/30/17 at 1748, Per Protocol, START ADJUSTMENT SCHEDULE 6 HOURS AFTER STARTING INFUSION aPTT Between 60 - 79 seconds: Bolus 2,000 units aPTT Less than 60 seconds: Bolus 4,000 units Increase infusion and recheck aPTT in 6 hours. , Routine heparin 25,000 units in dextrose 5% 500 mL infusion 0-5,000 Units/hr (0-100 mL/hr), Intravenous, CONTINUOUS, Starting on Tue07/29/17 at 1630, Until Tue07/30/17 at 1748, BEGIN infusion at 950 units per hr [...] Indication: ACS (STEMI vs NSTEMI vs UA) lamoTRIgine (LaMICtal) tablet 150 mg 150 mg, Oral, DAILY, First dose on 07/30/17 at 0900, Until Discontinued, Routine Given 07/30/2017 9:22 AM EDT 150 mg meTOPROLOL succinate (TOPROL-XL) XL tablet 50 mg 50 mg, Oral, DAILY, First dose on 07/30/17 at 0945, Until Discontinued, DO NOT CRUSH OR OPEN, Routine Given 07/30/2017 9:33 AM EDT 50 mg montelukast (SINGULAIR) tablet 10 mg 10 mg, Oral, NIGHTLY, First dose on Tue07/29/17 at 2100, Until Discontinued, Routine Given 07/29/2017 10:33 PM EDT 10 mg morphine 2 mg/mL carpuject 2 mg 2 mg, Intravenous, EVERY 3 HOURS PRN, Starting on Tue07/29/17 at 1618, Until 07/30/17 at 1748, Pain, May give an additional 2 mg in 30 minutes once if pain not relieved., Routine Given 07/29/2017 4:35 PM EDT 2 mg nicotine (NICODERM CQ) 7 mg/24 hr patch 7 mg 7 mg, Transdermal, DAILY, First dose on Tue07/29/17 at 1800, Until Discontinued, Routine nicotine (NICODERM CQ) 7 mg/24 hr patch Patch Removal Transdermal, DAILY, First dose on Tue07/30/17 at 0900, Until Discontinued, Remove nicotine 7 mg/24 hr patch nicotine (NICODERM CQ) 7 mg/24 hr patch Patch Verification Transdermal, 2 TIMES DAILY, First dose on 07/30/17 at 0900, Until Discontinued, Verify nicotine 7 mg/24 hr patch. nitroGLYcerin (NITROSTAT) SL tablet 0.4 mg 0.4 mg, Sublingual, EVERY 5 MIN PRN, Starting on Tue07/29/17 at 1833, Until Tue07/30/17 at 1748, Chest pain, May repeat every 5 minutes for a total of three doses. Notify provider if chest pain not relieved with nitroglycerin. Do not administer nitroglycerin if the patinet has received or taken phosphodiesterase (PDE-5) inhibitors such as sildenafil, tadalafil or vardenafil within the last 24 to 72 hours., Recovery (Recovery-Hospital Unit), Routine pregabalin (LYRICA) capsule 75 mg 75 mg, Oral, DAILY, First dose on Tue07/29/17 at 1800, Until Discontinued, Routine Given 07/30/2017 9:22 AM EDT 75 mg sodium chloride 0.9 % flush 5 mL 5 mL, Intravenous, 2 TIMES DAILY, First dose on Tue07/29/17 at 2100, Until Discontinued, Routine Given 07/30/2017 9:24 AM EDT 5 mLs sodium chloride 0.9 % flush 5 mL 5 mL, Intravenous, EVERY 12 HOURS, First dose on Tue07/29/17 at 1630, Until Discontinued, Cath (Day of Procedure), Routine Given 07/29/2017 4:39 PM EDT 5 mLs sodium chloride 0.9% infusion 100 mL/hr, Intravenous, CONTINUOUS, Starting on Tue07/29/17 at 1900, Until Tue07/29/17 at 2359, Recovery (Recovery-Hospital Unit) New Bag 07/29/2017 6:45 PM EDT 100 mL/hr 100 mL/hr documented in this encounter Active and Recently Administered Medications Times are shown in EDT. Scheduled Medication Order 07/28/2017 07/29/2017 07/30/2017 aspirin chewable tablet 325 mg (COMPLETED) 325 mg, Oral, ONCE, 1 dose, On Tue07/29/17 at 1630, STAT 1635 (Given - Provider: Angeles Araujo RN) aspirin chewable tablet 81 mg 81 mg, Oral, DAILY, First dose on 07/30/17 at 0900, Until Discontinued, Routine 1643 (MAR Hold - Provider: Admin Adt - Reason: Transfer to a Procedural area)1943 (MAR Unhold - Provider: Admin Adt) 09 (Given - Provider: Jennyfer Alvarado RN) atorvastatin (LIPITOR) tablet 40 mg (CANCELED) 40 mg, Oral, EVERY EVENING, First dose on Tue07/29/17 at 1700, Until Discontinued, Routine 1635 (Given - Provider: Angeles Araujo RN)1643 (MAR Hold - Provider: Admin Adt - Reason: Transfer to a Procedural area)1943 ([facility] Unhold - Provider: Admin Adt) atorvastatin (LIPITOR) tablet 40 mg (COMPLETED) 40 mg, Oral, ONCE, 1 dose, On 07/30/17 at 1045, Routine 1141 (Given - Provid er: Jennyfer Alvarado RN) atorvastatin (LIPITOR) tablet 40 mg 40 mg, Oral, EVERY EVENING, First dose on 07/31/17 at 1700, Until Discontinued, Routine clopidogrel (PLAVIX) tablet 600 mg (COMPLETED)(Linked Group 1) 600 mg, Oral, ONCE, 1 dose, On Tue07/29/17 at 1630, Cath (Day of Procedure), STAT 1635 (Given - Provider: Angeles Araujo RN) clopidogrel (PLAVIX) tablet 75 mg 75 mg, Oral, DAILY, First dose on 07/30/17 at 0945, Until Discontinued, Routine 0933 (Given - Provid er: Jennyfer Alvarado RN) FLUoxetine (PROzac) capsule 40 mg 40 mg, Oral, DAILY, First dose on 07/29/17 at 1800, Until Discontinued, Routine 1643 (MAR Hold - Provider: Admin Adt - Reason: Transfer to a Procedural area)1800 (Automatically Held - Provider: Admin Adt)1943 (MAR Unhold - Provider: Admin Adt) 0922 (Given - Provider: Jennyfer Alvarado RN) lamoTRIgine (LaMICtal) tablet 150 mg 150 mg, Oral, DAILY, First dose on Tue07/30/17 at 0900, Until Discontinued, Routine 1642 (MAR Hold - Provider: Admin Adt - Reason: Transfer to a Procedural area)1942 (MAR Unhold - Provider: Admin Adt) 0922 (Given - Provider: Jennyfer Alvarado RN) meTOPROLOL succinate (TOPROL-XL) XL tablet 50 mg 50 mg, Oral, DAILY, First dose on Tue07/30/17 at 0945, Until Discontinued, DO NOT CRUSH OR OPEN, Routine 09 (Given - Provid er: Jennyfer Alvarado RN) montelukast (SINGULAIR) tablet 10 mg 10 mg, Oral, NIGHTLY, First dose on Tue07/29/17 at 2100, Until Discontinued, Routine 164 (MAR Hold - Provider: Admin Adt - Reason: Transfer to a Procedural area)1942 (MAR Unhold - Provider: Admin Adt)2232 (Given - Provider: Alberto Ferguson RN) nicotine (NICODERM CQ) 7 mg/24 hr patch 7 mg(Linked Group 2) 7 mg, Transdermal, DAILY, First dose on Tue07/29/17 at 1800, Until Discontinued, Routine 1642 (MAR Hold - Provider: Admin Adt - Reason: Transfer to a Procedural area)1800 (Automatically Held - Provider: Admin Adt)1942 (MAR Unhold - Provider: Admin Adt) 0900 (Not Given - Provider: Jennyfer Alvarado RN - Reason: Patient/family refused) nicotine (NICODERM CQ) 7 mg/24 hr patch Patch Removal(Linked Group 2) Transdermal, DAILY, First dose on Tue07/30/17 at 0900, Until Discontinued, Remove nicotine 7 mg/24 hr patch 1642 (MAR Hold - Provider: Admin Adt - Reason: Transfer to a Procedural area)1942 (MAR Unhold - Provider: Admin Adt) 0900 (Patch Not Removed (add comment) - Provider: Jennyfer Alvarado RN - Comment: patch not applied) nicotine (NICODERM CQ) 7 mg/24 hr patch Patch Verification(Linked Group 2) Transdermal, 2 TIMES DAILY, First dose on Tue07/30/17 at 0900, Until Discontinued, Verify nicotine 7 mg/24 hr patch. 1643 (NOV Hold - Provider: Admin Adt - Reason: Transfer to a Procedural area)1943 (NOV Unhold - Provider: Admin Adt) 0900 (Not Given - Provider: Jennyfer Alvarado RN - Reason: See comment - Comment: not applied) pregabalin (LYRICA) capsule 75 mg 75 mg, Oral, DAILY, First dose on Tue07/29/17 at 1800, Until Discontinued, Routine 1643 (MAR Hold - Provider: Admin Adt - Reason: Transfer to a Procedural area)1800 (Automatically Held - Provider: Admin Adt)1943 (MAR Unhold - Provider: Admin Adt) 0922 (Given - Provider: Jennyfer Alvarado RN) sodium chloride 0.9 % flush 5 mL 5 mL, Intravenous, 2 TIMES DAILY, First dose on Tue07/29/17 at 2100, Until Discontinued, Routine 1643 (MAR Hold - Provider: Admin Adt - Reason: Transfer to a Procedural area)1943 (MAR Unhold - Provider: Admin Adt)2100 (Not Given - Provider: Alberto Ferguson RN - Reason: Order parameters not met) 0924 (Given - Provider: Jennyfer Alvarado RN) sodium chloride 0.9 % flush 5 mL (CANCELED) 5 mL, Intravenous, EVERY 12 HOURS, First dose on Tue07/29/17 at 1630, Until Discontinued, Cath (Day of Procedure), Routine 1639 (Given - Provider: Angeles Araujo RN) Continuous Medication Order 07/28/2017 07/29/2017 07/30/2017 heparin 25,000 units in dextrose 5% 500 mL infusion(Linked Group 3) 0-5,000 Units/hr (0-100 mL/hr), Intravenous, CONTINUOUS, Starting on Tue07/29/17 at 1630, Until 07/30/17 at 1748, BEGIN infusion at 950 units per hr [...] Indication: ACS (STEMI vs NSTEMI vs UA) 1630 (Canceled Entry - Provi khushboo: Alberto Ferguson RN - Reason: See comment - Comment: Not administered prior to heart cath)1643 (NOV Hold - Provider: Admin Adt - Reason: Transfer to a Procedural area)1943 (MAR Unhold - Provider: Admin Adt) sodium chloride 0.9% infusion () 100 mL/hr, Intravenous, CONTINUOUS, Starting on Tue07/29/17 at 1900, Until Tue07/29/17 at 2359, Recovery (Recovery-Hospital Unit) 1845 (New Bag - Provider: Mary Avitia RN)2347 (Stopped - Provider: Alberto Ferguson RN) PRN Medication Order 07/28/2017 07/29/2017 07/30/2017 acetaminophen (TYLENOL) tablet 500 mg 500 mg, Oral, EVERY 6 HOURS PRN, Starting on 07/30/17 at 1132, Until 07/30/17 at 1748, Pain, Maximum dose of acetaminophen is 4000 mg from all sources in 24 hours., Routine 1141 (Given - Provider: Jennyfer Alvarado RN) fentaNYL 50 mcg/mL multi-dose injection (CANCELED) ONCE PRN, Starting on Tue07/29/17 at 1705, Until Tue07/29/17 at 1816, Intra-Operative (Intra-Procedure), Routine 1705 (Given - Provider: Daphne Cunha RN)1739 (Given - Provider: Daphne Cunha RN)1802 (Given - Provider: Daphne Cunha RN) heparin (porcine) injection 0-4,000 Units(Linked Group 3) 0-4,000 Units, Intravenous, BOLUS PER HEPARIN PROTOCOL, Starting on Tue07/29/17 at 1609, Until 07/30/17 at 1748, Per Protocol, START ADJUSTMENT SCHEDULE 6 HOURS AFTER STARTING INFUSION aPTT Between 60 - 79 seconds: Bolus 2,000 units aPTT Less than 60 seconds: Bolus 4,000 units Increase infusion and recheck aPTT in 6 hours. , Routine 164 (NOV Hold - Provider: Admin Adt - Reason: Transfer to a Procedural area)194 (NOV Unhold - Provider: Admin Adt) heparin (porcine) injection (CANCELED) ONCE PRN, Starting on Tue07/29/17 at 1711, Until Tue07/29/17 at 1816, Cath (Intra-Procedure), Routine 171 (Given - Provider: Daphne Cunha RN)172 (Given - Provider: Daphne Cunha RN) iohexol (OMNIPAQUE) 350 mg/mL solution (CANCELED) ONCE PRN, Starting on Tue07/29/17 at 1812, Until Tue07/29/17 at 1816, Cath (Intra-Procedure), Routine 1811 (Given - Provider: Daphne Cunha RN) lidocaine (XYLOCAINE) 10 mg/mL (1 %) injection 3 mg 3 mg (0.3 mL), Subcutaneous, ONCE PRN, 1 dose, Starting on Tue07/29/17 at 1607, Until 07/30/17 at 1748, for discomfort with PIV insertion, Routine 164 (NOV Hold - Provider: Admin Adt - Reason: Transfer to a Procedural area)194 (NOV Unhold - Provider: Admin Adt) midazolam (PF) (VERSED) 1 mg/mL multi-dose injection (CANCELED) ONCE PRN, Starting on Tue07/29/17 at 1704, Until Tue07/29/17 at 1816, Cath (Intra-Procedure), Routine 170 (Given - Provider: Daphne Cunha RN)173 (Given - Provider: Daphne Cunha RN) morphine 2 mg/mL carpuject 2 mg 2 mg, Intravenous, EVERY 3 HOURS PRN, Starting on Tue07/29/17 at 1618, Until 07/30/17 at 1748, Pain, May give an additional 2 mg in 30 minutes once if pain not relieved., Routine 1635 (Given - Provider: Angeles Araujo RN)1642 (NOV Hold - Provider: Admin Adt - Reason: Transfer to a Procedural area)1942 (NOV Unhold - Provider: Admin Adt) nitroGLYcerin (NITROSTAT) SL tablet 0.4 mg 0.4 mg, Sublingual, EVERY 5 MIN PRN, Starting on Tue07/29/17 at 1833, Until 07/30/17 at 1748, Chest pain, May repeat every 5 minutes for a total of three doses. Notify provider if chest pain not relieved with nitroglycerin. Do not administer nitroglycerin if the patinet has received or taken phosphodiesterase (PDE-5) inhibitors such as sildenafil, tadalafil or vardenafil within the last 24 to 72 hours., Recovery (Recovery-Hospital Unit), Routine sodium chloride 0.9 % flush 5-20 mL 5-20 mL, Intravenous, EVERY 1 MIN PRN, Starting on Tue07/29/17 at 1607, Until 07/30/17 at 1748, flush, Flush pertains to all indwelling lines. Flush per protocol found in the job aid using the link provided on this medication record., Routine 1642 (NOV Hold - Provider: Admin Adt - Reason: Transfer to a Procedural area)1942 ([facility] Unhold - Provider: Admin Adt) Linked Groups Order Group 1: clopidogrel (PLAVIX) tablet 600 mg (COMPLETED)Jump to med 600 mg, Oral, ONCE, 1 dose, On Tue07/29/17 at 1630, Cath (Day of Procedure), STAT Followed by clopidogrel (PLAVIX) tablet 75 mg (CANCELED) 75 mg, Oral, DAILY, First dose (after last modification) on Tue07/30/17 at 0900, Until Discontinued, Cath (Day of Procedure), Routine Group 2: nicotine (NICODERM CQ) 7 mg/24 hr patch 7 mgJump to med 7 mg, Transdermal, DAILY, First dose on Tue07/29/17 at 1800, Until Discontinued, Routine And nicotine (NICODERM CQ) 7 mg/24 hr patch Patch VerificationJump to med Transdermal, 2 TIMES DAILY, First dose on Tue07/30/17 at 0900, Until Discontinued, Verify nicotine 7 mg/24 hr patch. And nicotine (NICODERM CQ) 7 mg/24 hr patch Patch RemovalJump to med Transdermal, DAILY, First dose on Tue07/30/17 at 0900, Until Discontinued, Remove nicotine 7 mg/24 hr patch Group 3: heparin (porcine) injection 0-4,000 UnitsJump to med 0-4,000 Units, Intravenous, BOLUS PER HEPARIN PROTOCOL, Starting on Tue07/29/17 at 1609, Until Tue07/30/17 at 1748, Per Protocol, START ADJUSTMENT SCHEDULE 6 HOURS AFTER STARTING INFUSION aPTT Between 60 - 79 seconds: Bolus 2,000 units aPTT Less than 60 seconds: Bolus 4,000 units Increase infusion and recheck aPTT in 6 hours. , Routine And heparin 25,000 units in dextrose 5% 500 mL infusionJump to med 0-5,000 Units/hr (0-100 mL/hr), Intravenous, CONTINUOUS, Starting on Tue07/29/17 at 1630, Until Tue07/30/17 at 1748, BEGIN infusion at 950 units per hr [...] UA) documented in this encounter Care Teams Box Toe Stitcher Relationship Specialty Start Date End Date Asya Hand MD [address] [place] [address] PCP - General Oncology 06/11/16 08/09/19 documented as of this encounter
--- OUTSIDE RECORDS SUMMARY | 2024-04-13 11:20 | XMS_ITS | Encounter Summary ---
Author Organization Formerly [facility] Address [facility] [place] [address] Care Team Providers Care Home Comfort Advisor Name Role Phone Asya Hand MD Primary Care Provider [phone] Encounter Details Date Type Department Care Team (Late st Contact Info) Description 08/15/2017 [place] [phone] Nilam Villarreal MD [facility] CRITICAL [place] [address] Social History Tobacco Use Types Packs/Day Years [...] encounter Miscellaneous Notes * Telephone Encounter - Nilam Villarreal MD - 08/15/2017 6:08 PM EST Telephone Triage Note Initial Contact Date: 08/15/17 Initial contact time: 18:00 Referring Provider: Dr. Cyril Yancey Patient Location: [facility] ED in [facility] Presenting Symptoms per OSH: 52yoF with a history of HTN, HLD, tobacco abuse and ASCVD recently admitted to [facility] Cardiology about 3 weeks ago with NSTEMI s/p PCI to the LAD and RCA. She now presents to [facility] ED with severe 8-10/10 chest pain starting at 11am. The chest pain radiates to the back but not to the arms or jaw. There are no other reported associated symptoms although the provider there notes she is a difficult historian. The patient notes that her pain is Identical to her prior chest pain for which she was treated for NSTEMI. The provider there notes that the patient was also seen at their ED this past Tuesday for shortness of breath and chest tenderness/pain which is different than the curr ent pain. Past Medical History: HTN HLD ASCVD s/p PCI Anxiety Depression Substance abuse (UDS + for opiates and meth at prior hospitalization) Tobacco abuse Pertinent Diagnostic Findings: Vitals: BP 104/67 HR 59 SaO2 95% on RA RR 16 EKG : Not available for my review at the time of the call, but Dr. Yancey reports minor EKG changes including TW flattening in V2-V4 which have since resolved on repeat EKG Troponin negative x2 (initial trop + 4 hour follow up trop) CXR: WNL by report CTA: WNL by report WBC 14.5 HGB 17 OSH Interventions: NTG x3, morphine IV, GI cocktail Plan: Dr. Yancey reports he has no other good explanation for the patient's ongoing chest pain with brief reported TW changes on EKG. Given this, must treat as ACS and consider urgent catheterization. Have advised starting ACS therapy and considering a NTG drip if ongoing pain and vitals can tolerate. Will accept in transfer overnight and assess on arrival for consideration of cath overnight versus tomorrow pending clinical course and further work-up. Have asked Dr. Yancey to fax EKGs for review given they were not available at the time of the call. documented in this encounter Plan of Treatment Not on file documented as of this encounter Visit Diagnoses Not on filedocumented in this encounter Care Teams Home Comfort Advisor Relationship Specialty Start Date End Date Asya Hand MD [address] [place] [address] PCP - General Oncology 06/11/16 08/09/19 documented as of this encounter
--- OUTSIDE RECORDS SUMMARY | 2024-04-13 11:20 | XMS_ITS | Encounter Summary ---
Author Organization Formerly [facility] Address [facility] [place] [address] Care Team Providers Care Utility Assembler Name Role Phone Asya Hand MD Primary Care Provider [phone] Reason for Visit * Auth/Cert Specialty Diagnoses / Procedures Referred By Contac t Referred To Contact Diagnoses Unstable angina CHEST PAIN, ACS, ANGINA Referral ID Status Reason Start Date Expiration Date Visits Re quested Visits Authorized [id number] 1 1 Encounter Details Date Type Department Care Team (Latest Contact Info) Description 08/15/2017 - 08/15/2017 12:04 AM [facility] Hospital En[place] [phone] Pankaj Valerio MD [facility] [place] [address] Pain Discharge Disposition: Home Social History Tobacco [...] Diagnosis Comments FILM LIBRARY STORAGE ONLY CT CHEST Routine 08/15/2017 12:00 AM EST Pain documented in this encounter Results * Film Library- Storage Only CT Chest (08/15/2017 12:00 AM EST) Narrative [facility] - 08/15/2017 7:12 PM EST This exam is for storage only and is auto-finalizing. Pankaj Valerio MD IMG FILM LIBRARY ORD ERABLES Performing Organization Address City/State/[facility] Co de Phone Number [place], [place] documented in this encounter Visit Diagnoses Diagnosis Pain Generalized pain documented in this encounter Care Teams Utility Assembler Relationship Specialty Start Date End Date Asya Hand MD [address] [place] [id number] PCP - General Oncology 06/11/16 08/09/19 documented as of this encounter
--- OUTSIDE RECORDS SUMMARY | 2024-04-13 11:20 | XMS_ITS | Encounter Summary ---
Author Organization [facility] Address [facility] [place] [address] Care Team Providers Care Wool Dyer Name Role Phone Asya Hand MD Primary Care Provider [phone] Encounter Details Date Type Department Care Team (Latest Contact Info) Description 07/29/2017 - 07/29/2017 3:09 PM EDT Hospital Encounter [place] [phone] Discharge Disposition: Home Social History Tobacco Use [...] skin daily. 28 patch 3 07/31/2017 12/15/2021 FLUoxetine (PROZAC) 20 mg Capsule Take 40 mg by mouth daily. 08/17/2017 lamoTRIgine (LAMICTAL) 150 mg Tablet Take 150 mg by mouth daily. 12/15/2021 pregabalin (LYRICA) 75 mg Capsule Take 75 mg by mouth daily. 08/17/2017 meTOPROLOL succinate (TOPROL-XL) 100 mg Tablet Sustained Release 24 hrIndications:hyperte nsion Take 100 mg by mouth daily. Indications: Hypertension 07/30/2017 verapamil (CALAN-SR) 180 mg Tablet Sustained Release [...] DX Chest (07/29/2017 12:00 AM EDT) Narrative [facility] - 07/29/2017 5:25 PM EDT This exam is for storage only and is auto-finalizing. Neo Rodriguez MD G FILM LIBRARY ORD ERABLES Performing Organization Address City/State/[facility] Co de Phone Number [place], [place] documented in this encounter Visit Diagnoses Not on filedocumented in this encounter Care Teams Wool Dyer Relationship Specialty Start Date End Date Asya Hand MD [address] [place] [address] PCP - General Oncology 06/11/16 08/09/19 documented as of this encounter
--- OUTSIDE RECORDS SUMMARY | 2024-04-13 11:20 | XMS_ITS | Encounter Summary ---
Author Organization [facility] Address [facility] [place] [address] Care Team Providers Care Quickbooks Bookkeeper Name Role Phone Asya Hand MD Primary Care Provider [phone] Reason for Referral * Consultation (Routine) - Closed Specialty Diagnoses / Procedures Referred By Maurisio bergman Referred To Contact Cardiac Rehabilitation Diagnoses Non-ST elevation myocardial infarction (NSTEMI) Vinh Henderson MD [facility] [place] [address] Cardiac Rehab, [address] [place] [address] Referral ID Status Reason Start Date Expiration Date V isits Requested Visits Authorized [id number] Closed Consult, Test & Treat 08/01/2017 01/28/2018 36 36 Encounter Details Date Type Department Care Team (Late st Contact Info) Description 08/01/2017 Orders Only Cardiac Rehab [facility] [place] [address] Shira De La Torre RN Non-ST elevation myocardial infarction (NSTEMI) Social History Tobacco Use Types Packs/Day Years [...] on file documented as of this encounter Progress Notes * Shira De La Torre, KOREY - 08/01/2017 9:00 AM EST Cardiac rehab- Called patient who was discharged over the weekend w/NSTEMI, PCI. We reviewed home walk program. She is interested in CR at [facility]. May have transportation issues but is willing to try. Referral sent. documented in this encounter Plan of Treatment Scheduled Referrals Name Type Priority Associated Diagnoses Orde r Schedule Referral to Cardiac Rehab Outpatient Referral Routine Non-ST elevation myocardial infarction (NSTEMI) Ordered: 08/01/2017 documented as of this encounter Visit Diagnoses Diagnosis Non-ST elevation myocardial infarction (NSTEMI) Acute myocardial infarction, subendocardial infarction, episode of care unspecified documented in this encounter Care Teams Quickbooks Bookkeeper Relationship Specialty Start Date End Date Asya Hand MD [address] [place] [address] PCP - General Oncology 06/11/16 08/09/19 documented as of this encounter
--- OUTSIDE RECORDS SUMMARY | 2024-04-13 11:21 | XMS_ITS | Encounter Summary ---
Author Organization [facility] Address [facility] [place] [address] Care Team Providers Care Acid Loader Name Role Phone Unavailable Primary Care Provider Unavailabl e Encounter Details Date Type Department Care Team (Late st Contact Info) Description 05/26/2016 [place] [address] Gracie Hoffmann MD [facility] [place] [address] Cerebral infarction due to unspecified mechanism Social History Tobacco Use Types Packs/Day Years [...] as of this encounter Visit Diagnoses Diagnosis Cerebral infarction due to unspecified mechanism documented in this encounter
--- OUTSIDE RECORDS SUMMARY | 2024-04-13 11:21 | XMS_ITS | Encounter Summary ---
Author Organization [facility] [place] [address] Care Team Providers Care Law Enforcement Director Name Role Phone Asya Martin MD Primary Care Provider [phone] Reason for Referral * Consultation (Routine) - Closed Specialty Diagnoses / Procedures Referred By Contac t Referred To Contact Neurology Diagnoses Headache, chronic daily Gracie Hoffmann MD [facility] [place] [address] Ava Cope MD [facility] [place] [address] Referral ID Status Reason Start Date Expiration Date V isits Requested Visits Authorized [id number] Closed Consult, Test & Treat 06/11/2016 06/11/2017 1 1 Reason for Visit * Reason Comments Blurred Vision * Consultation (Routine) - Closed Specialty Diagnoses / Procedures Referred By Contac t Referred To Contact Neurology Diagnoses Pontine ischemia Asya Martin MD [address] [place] [address] [facility] [address] [place] [phone] Referral ID Status Reason Start Date Expiration Date Visits Re quested Visits Authorized [id number] Closed 05/19/2016 05/19/2017 1 1 Encounter Details Date Type Department Care Team (Latest Contact Info) Description 06/11/2016 9:00 AM EDT Office [place] [address] Gracie Hoffmann MD [facility] [place] [address] Cerebral microvascular disease (Primary Dx); Headache, chronic daily Social History Tobacco Use Types Packs/Day Years [...] Sign Reading Time Taken Comments Blood Pressure 116/84 06/11/2016 8:55 AM EDT Pulse 59 06/11/2016 8:55 AM EDT Temperature - - Respiratory Rate - - Oxygen Saturation - - Inhaled Oxygen Concentration - - Weight 88 kg (194 lb) 06/11/2016 8:55 AM EDT Height 170.2 cm (5' 7) 06/11/2016 8:55 AM EDT Body Mass Index 30.38 06/11/2016 8:55 AM EDT documented in this encounter Progress Notes * Gracie Hoffmann MD - 06/11/2016 9:00 AM EDT Images from the original note were not included. Cerebrovascular Disease and Stroke Program [place] [address] t: [phone] / f: [phone] Date of Appointment: 06/11/2016 Patient: Sahra Williamson PCP: ASYA MARTIN MD Consultation Requested By: Asya Martin Md [address] [place] [address] This 51 y.o. female is evaluated because of evidence of pontine ischemia in recent MRI. I have beenasked to see Ms. Williamson in consultation by Dr. Mayen for MRI findings in my capacity as Vascular Neurology Specialist. Ms. Williamson is a pleasant woman who offers multiple complaints today. She refers a long standing blurred vision with some worsening recently, often binocular, ocassional just her left eye. States has difficulties focusing her eyes. There is no obscuration of visual lawrence or vision loss. She saw box toe cementer recently and was diagnosed with insipid catarcts and told she has some specks in the back of her eye. No diagnosis of glaucoma. The blurriness in her left eye is often accompanied by a headache - in the left advent involving ear, pulsaitng, feels a beat in her neck, no nausea or vomiting. He headaches are daily, can turn into a migrines 4 to 5 times per week. No visual aura Takes OTC combo medication with [id number] 250/Caffeine 65mg once a day at least. Was seen in headache clinic in past an tried Indocin with no relieve. She also has memory complaints - short term, forgets appt, not having trouble with bills except for car insurance. Slow mentation. Chronic neck pain with limited motion, had surgery in past. She admits to chronic neck pain and reports occasionally feeling dizzy and unbalance.- going on for 6 motnhs, becoming more severe when her headaches are bad. Ms. Williamson has a history of PRES presenting with seizures in 01/2011 and stroke on 09/2011- Left parietal hemorrhage. As per chart documentation MRI demonstrated no underlying massess with flair hyperintensity in contralateral occipital cortex suggestive of PRES. Vascular imaging with CTA showed no aneurysm. However due to PRES and location of hemorrahge vasculitis and AV malformations needed to berule out . Patient underwent a conventional angiogram that ruled out undelrying pathology. Most likely etiology of stroke was Hypertension. There was a possibility of sumatriptan overuse contributingto her symptoms. She agreed to taking 3-5 tablets a day for few days preceding admission. She had one GTC upon presentation at that time attributed to PRESS, no other seizure events. She was initially taken off antiplatelets but restarted some time after and is currently taking asa 81mg. Was on pravastatin in the past but stopped due to side effects, unsure if had tried other statins. She has a Brain MRI done recently by her PCP for her complaints of blurred vision. As per report there is evidence of pontine ischemia. These images are not available for my review today. Patient lives independently, is a current smoker of 10 cigarettes at day. Occasional ETOH intake, no recreational drugs. Refers good medication compliance and denies side effects. Past Medical History Diagnosis Date ??? Depression ??? Hemorrhagic cerebrovascular [...] (CVA) I63.9 ??? Tobacco dependence syndrome F17.200 Allergies Allergen Reactions ??? Imitrex [Sumatriptan Succinate] ??? Alprazolam ??? Amoxicillin Unknown pt unsure ??? Ampicillin Itching ??? Azithromycin Itching ??? Codeine Phosphate Itching ??? Sulfa (Sulfonamide Antibiotics) Itching Edema Outpatient Prescriptions Marked as Taking for the 06/11/16 encounter (Office Visit) with Gracie Hoffmann MD Medication Sig Dispense Refill ??? FLUoxetine (PROZAC) 20 mg Capsule Take 60 mg by mouth daily. ??? lamoTRIgine (LAMICTAL) 150 mg Tablet Take 150 mg by mouth daily. ??? pregabalin (LYRICA) 75 mg Capsule Take 75 mg by mouth daily. ??? aspirin 81 mg Tablet, Delayed Release (E.C.) Take 81 mg by mouth daily. Indications: MyocardialReinfarction Prevention ??? meTOPROLOL succinate (TOPROL-XL) 100 mg Tablet Sustained Release 24 hr Take 100 mg by mouth daily. Indications: Hypertension ??? verapamil (CALAN-SR) 180 mg Tablet Sustained Release Take 180 mg by mouth nightly. ??? QUEtiapine (SEROQUEL) 100 mg Tablet Take 1 tablet by mouth nightly. Social History Social History ??? Marital status: Spouse name: N/A ??? Number of children: N/A ??? Years of education: N/A Social History Main Topics ??? Smoking status: Current Every Day Smoker Packs/day: 0.50 Years: 25.00 Types: Cigarettes ??? Smokeless tobacco: Never Used Comment: avs information ??? Alcohol use No Comment: Was an alcoholic until a year ago and prior to that for over 17 years was a heavy alcoholic ??? Drug use: Yes Special: Marijuana Comment: Occasional ??? Sexual activity: Yes Partners: Male Other Topics Concern ??? None Social History Narrative Family History Problem Relation Age of Onset ??? Coronary Artery Disease Early Onset Father ??? Cerebrovascular Accident Mother ROS: [gray: X=present and if no X, was negative] X headache glaucoma transient loss of vision double vision X dizziness difficulty speaking weakness of arm/leg numbness of arm/leg X unsteadiness walking falls seizures difficulty swallowing X memory loss ringing in ears snoring incontinence X chest pain palpitations trouble breathing trouble lying flat nausea/vomiting indigestion abdominal pain rashes birthmarks easy bruising miscarriages blood clots in legs (DVT) poor circulation erectile dysfunction X depression anxiety joint pains fatigue Exam: Vitals: 06/11/16 0855 BP: 116/84 Pulse: 59 General: Well appearing patient, nontoxic. Sclerae anicteric. No cervical adenopathy, thyromegaly or carotid/vertebral bruits. No advent tenderness, palpable bitemple pulses. Painful trigger point in occipital region No audible wheezing. No edema lower extremities. Heart regular, no murmur. Radial pulses palpable and symmetric. Neuro: MS--alert, oriented; speech fluent/articulate, no dysarthria, paraphasic errors or gricelda aphasia; naming, repetition, recall intact. CN--PERRL w/o anisocoria; no ptosis; EOMI; visual lawrence intact to confrontation; facial sensation;facial smile/grimace intact; hearing intact to finger rub; tongue/palate midline. Motor--No pronator drift; bulk and tone normal. Power 5/5 symmetric Sens--light touch, temp intact throughout; No DSSE. Coord--FTN and HTS performed w/o dysmetria; no dysdiadochokinesia Gait--Romberg negative; casual gait unremarkable. Unable to tandem. DTRs--hyperrefelxia in right knee. Data and records reviewed: MRI OF THE BRAIN WITH AND WITHOUT CONTRAST: HISTORY: Acute left intracranial hemorrhage. COMPARISON: MR 02/15/11, CT 10/02/11. FINDINGS: As was present on the recent CT, a 3.6 cm superomedial left parietal lobe hematoma is present. There is surrounding edema and mass effect related to the hemorrhage. An area of signal abnormality is present in the right occipital lobe on FLAIR and T2-weighted images, similar to the previous examination. No area of acute restricted diffusion is present to suggest infarct. No other areas of intracranial hemorrhage are identified. Normal flow void is present in the dural venous sinuses. Postcontrast images demonstrate mild enhancement of the venous structures adjacent to the hematoma with some enhancement in the central sulcus just anterior to the hematoma, which may be related to venous congestion. No enhancing mass is identified. There may be mild enhancement at the inferior and anterior margin of the hematoma. IMPRESSION: 1. Superomedial left parietal hematoma with surrounding edema and mass effect. No definite underlying mass is identified. 2. Signal abnormality in the right parietal lobe consistent with the patient's history of PRES. MRI OF THE BRAIN WITH AND WITHOUT CONTRAST, 02/15/11: PREVIOUS STUDY: CT scan of the head dated 02/14/11. HISTORY: Fevers, confusion, question encephalitis. FINDINGS: On the FLAIR sequence is abnormal T2 signal in the cortex and adjacent subcortical white matter in the bilateral parasagittal parietal lobes, as well as the parasagittal occipital lobes bilaterally. No associated enhancement is identified. There is a tiny focus of restricted diffusion in the right occipital lobe, otherwise no associated restricted diffusion. The edema associated with this process is minimal. There is a single focus of T2 signal alteration in the anterior right parietal lobe, as well as several areas of increased T2 signal in the yissel. These are thought to most likely reflect small vessel ischemic disease. No masses or extraaxial collections. The ventricles and sulci are of proportional size. Normal proximal intracranial flow voids are seen. Although an MRV was performed, the dural sinuses appear patent. The paranasal sinuses are clear. IMPRESSION: T2 signal alteration of the cortex and the adjacent subcortical white matter in a posterior distribution. The most likely diagnosis is PRES (posterior reversible encephalopathy syndrome). Less likely considerations would be encephalitis and seizure activity. Clinical Impression and recommendations: Ms. Sahra Williamson is a pleasant 51 y/o woman seen for opinion about findings suggestive of ischemic changes in the yissel in recent Brain MRI done as part of work up for blurred vision. Recent brain MRI images are not available for my review today. I will work on getting these images to complete my assessment. I personally review previous brain MRIs done at our institution in 2010 and 2011 when Ms. Williamson was hospitalized with PRES and stroke. There was already evidence of significant microvascular ischemic changes in the yissel on those studies. I suspect the abnormalities seen in recent study are similar to the ones documented in the MRI of 2012. Current symptoms of blurred vision are not suggestive of a vascular event but rather a headache/migraine phenomena. Ms. Williamson has had migraine headaches for many years getting worse and changing in nature for past months. She is a chronic pain medications user that can exacerbate her headaches. I am referring Ms. Williamson to our headache clinic for a proper assessment and management of her headaches. Nonetheless, Ms. Williamson has significant CV risk factors, she had a stroke and CAD in past. We discussed about her risk for further ischemic events. Medication complaince, good control of vascular riskfactors, healthy diet and moderate physical activity were recommended. I strongly advised her to quit smoking. We also review indications, benefits and risks associated with the use of statin medications to decreased CV risk. I recommended to try a small dose to avoid side effects. Ischemic Changes in Yissel: probably related to chronic microvascular disease. ??? Will obtain recent Brain MRI from [facility] done in March 2017 to review. I will give a call to Ms. Williamson with my impression once I have reviewed these images. ??? Continue ASA 81 mg PO daily for stroke secondary prevention ??? Recommend a trial of small dose atorvastatin 20mg PO daily for better tolerability. ??? PMD to monitor modifiable CV risk factors and adjust therapy as needed. Suggested guidelines atthe end of this report. Blurred vision: Likely related to migraine headaches ??? Referral to [facility] headache clinic given today ??? I will check ESR today ( I have low suspicion for temporal arteritis but need inflammatory markers to exclude) ??? I did not modify her current pain management. Advice to decrease intake of pain medications. ??? Return to clinic PRN Thank you for the opportunity of seeing Ms. Williamson and allowing me to participate in her care. Greater than 30% of this 60 minute encounter I spent counseling. Modifiable Risk Factors in Secondary Stroke Prevention Risk Factor Treatment Goals Hypertension Patients with hypertension: <140/90 mm Hg; 10-mm Hg reduction in systolic BP and 5-mm Hg reduction in diastolic BP from baseline Patients with diabetes mellitus or renal disease: <130/80 mm Hg; 10-mm Hg reduction in systolic BP and 5-mm Hg reduction in diastolic BP from baseline Patients without hypertension: <120/80 mm Hg; 10-mm Hg reduction in systolic BP and 5-mm Hg reduction in diastolic BP from baseline Dyslipidemia Atherosclerotic stroke or TIA: low-density lipoprotein (LDL) cholesterol level <70 mg/dl or 50% reduction in LDL cholesterol level from baseline Nonatherosclerotic stroke or TIA: per National Cholesterol Education Program (NCEP) Adult TreatmentPanel III (ATP-III) goals Diabetes Mellitus HgA1c level <7% Cigarette Smoking Complete cessation Alcohol Consumption Men: two or fewer drinks per day Non woman: one or fewer drinks per day Physical Activity At least 30 minutes of moderate intensity physical exercise 1- 3 times per week Diet Low-fat, low-sodium, and Mediterranean or Dietary Approaches to Stop Hypertension diets (diabetic diet when applicable) Obesity Goal body mass index of 18.5-25 kg/m2 documented in this encounter Plan of Treatment Scheduled Referrals Name Type Priority Associated Diagnoses Orde r Schedule Referral to Neurology Outpatient Referral Routine Headache, chronic daily Ordered: 06/11/2016 documented as of this encounter Visit Diagnoses Diagnosis Cerebral microvascular disease- Primary Cerebrovascular disease, unspecified Headache, chronic daily Headache documented in this encounter Care Teams Law Enforcement Director Relationship Specialty Start Date End Date Asya Martin MD [address] [place] [address] PCP - General Oncology 06/11/16 08/09/19 documented as of this encounter
--- OUTSIDE RECORDS SUMMARY | 2024-04-13 11:21 | XMS_ITS | Encounter Summary ---
Author Organization [facility] Address [facility] [place] [address] Care Team Providers Care Peeled Potato Inspector Name Role Phone Unavailable Primary Care Provider Unavailabl e Encounter Details Date Type Department Care Team (Latest Contact Info) Description 05/05/2016 - 05/05/2016 11:59 PM EDT Hospital Encounter [place] [address] Gracie Hoffmann MD [facility] [place] [address] Pain Discharge Disposition: Home Social History Tobacco [...] Sig Dispensed Refills Start Date End Date LORazepam (ATIVAN) 1 mg Tablet Take 1 mg by mouth daily as needed. 01/27/2016 06/11/2016 meTOPROLOL succinate (TOPROL-XL) 100 mg Tablet Sustained Release 24 hr Take 1 tablet by mouth daily. 02/01/2016 06/11/2016 pravastatin (PRAVACHOL) 20 mg Tablet Take 60 mg by mouth every evening. 01/06/2016 06/11/2016 LYRICA 50 mg Capsule Take 1 capsule by mouth daily. 01/09/2016 06/11/2016 QUEtiapine (SEROQUEL) 100 mg Tablet Take 1 tablet by mouth nightly. 01/24/2016 07/29/2017 verapamil (VERELAN PM) 180 mg Cap,24 hr Sust Release Pellets Take 1 capsule by mouth daily. 11/30/2015 06/11/2016 lamoTRIgine (LAMICTAL) 100 mg tablet Take 100 mg by mouth daily. 06/11/2016 documented as of this encounter Plan of Treatment Not on file documented as of this encounter Procedures Procedure Name Priority Date/Time Associated Diagnosis Comments FILM LIBRARY STORAGE ONLY MR HEAD Routine 05/05/2016 12:00 AM EDT Pain documented in this encounter Results * Film Library- Storage Only MR Head (05/05/2016 12:00 AM EDT) Narrative ANNELISE URBINA - 06/23/2016 3:04 PM EDT This exam is for storage only and is auto-finalizing. Gracie TOBIAS FILM LIBRARY O RDERABLES [place] documented in this encounter Visit Diagnoses Diagnosis Pain Generalized pain documented in this encounter
--- OUTSIDE RECORDS SUMMARY | 2024-04-13 11:21 | XMS_ITS | Encounter Summary ---
Author Organization [facility] [place] [address] Care Team Providers Care Neonatal Intensive Care Nurse Name Role Phone Asya Hand MD Primary Care Provider [phone] Encounter Details Date Type Department Care Team (Latest Contact Info) Description 03/04/2017 - 03/04/2017 11:59 PM EDT Hospital Encounter [place] [address] Tessa Vázquez APRN [facility] [place] [address] Discharge Disposition: Home Social History Tobacco Use [...] Date FLUoxetine (PROZAC) 20 mg Capsule Take 40 mg by mouth daily. 08/17/2017 lamoTRIgine (LAMICTAL) 150 mg Tablet Take 150 mg by mouth daily. 12/15/2021 pregabalin (LYRICA) 75 mg Capsule Take 75 mg by mouth daily. 08/17/2017 aspirin 81 mg Tablet, Delayed Release (E.C.)Indications:myoca rdial reinfarction prevention Take 81 mg by mouth daily. Indications: Myocardial Reinfarction Prevention 07/29/2017 meTOPROLOL succinate (TOPROL-XL) 100 mg Tablet Sustained Release 24 hrIndications:hypertens ion Take 100 mg by mouth daily. Indications: Hypertension 07/30/2017 verapamil (CALAN-SR) 180 mg Tablet Sustained Release Take 180 mg by mouth nightly. 08/17/2017 QUEtiapine (SEROQUEL) 100 mg Tablet Take 1 tablet by mouth nightly. 01/24/2016 07/29/2017 documented as of this encounter Plan of Treatment Not on file documented as of this encounter Procedures Procedure Name Priority Date/Time Associated Diagnosis Comments FILM LIBRARY STORAGE ONLY MR SPINE Routine 03/04/2017 12:00 AM EDT documented in this encounter Results * Film Library- Storage Only MR Spine (03/04/2017 12:00 AM EDT) Narrative CIARA - 07/19/2018 3:32 PM EDT This exam is for storage only and is auto-finalizing. Tessa Vázquez APRN IMG FILM LIBRARY ORD ERABLES [place], [place] documented in this encounter Visit Diagnoses Not on filedocumented in this encounter Care Teams Neonatal Intensive Care Nurse Relationship Specialty Start Date End Date Asya Hand MD [address] [place] [id number] PCP - General Oncology 06/11/16 08/09/19 documented as of this encounter
--- OUTSIDE RECORDS SUMMARY | 2024-04-13 11:21 | XMS_ITS | Encounter Summary ---
Author Organization [facility] Address [facility] [place] [address] Care Team Providers Care Boomswing Operator Name Role Phone Unavailable Primary Care Provider Unavailabl e Encounter Details Date Type Department Care Team (Late st Contact Info) Description 05/05/2016 Ancillary Procedure Radiology Library at [facility] [place] [address] Mayur Monroy III, MD [facility] [place] [address] Social History Tobacco Use Types Packs/Day Years [...] Associated Diagnosis Comments FILM LIBRARY STORAGE ONLY ULTRASOUND STUDY Routine 05/05/2016 12:00 AM EDT documented in this encounter Results * Film Library- Storage Only Ultrasound Study (05/05/2016 12:00 AM EDT) Narrative [facility] - 05/09/2020 2:38 PM EDT This exam is auto-finalizing. It's purpose is for storage only. Mayur Monroy III, MD IM FILM LIBRARY ORDERABLES Performing Organization Address City/State/[facility] Co de Phone Number [place], [place] documented in this encounter Visit Diagnoses Not on filedocumented in this encounter
--- OUTSIDE RECORDS SUMMARY | 2024-04-13 11:21 | XMS_ITS | Encounter Summary ---
Author Organization [facility] [place] [address] Care Team Providers Care Tanker Serviceman Name Role Phone Asya Hand MD Primary Care Provider [phone] Reason for Visit * Auth/Cert Specialty Diagnoses / Procedures Referred By Contac t Referred To Contact Diagnoses NSTEMI (non-ST elevated myocardial infarction) NSTEMI ( MARICHUY 144) ?CAD Procedures CARDIAC CATHETERIZATION Referral ID Status Reason Start Date Expiration Date Visits Re quested Visits Authorized [id number] 1 1 Encounter Details Date Type Department Care Team (Late st Contact Info) Description 07/29/2017 4:00 PM EDT - 07/29/2017 5:00 PM [place] [address] Jim Chen MD [facility] [address] [place] [address] CARDIAC CATHETERIZATION Social History Tobacco Use Types [...] Coronary artery disease 02/05/2016 Coronary angiogram at [facility]: LAD mid 50%, OM1 long 40%, RCA [...] for several hours and she arrived at [facility]. She reports that for the past several [...] a predictable pattern. ?? On arrival at [facility] Ms. Williamson's vitals were normal temperature, [...] treated with a heparin bolus and infusion. [facility] cardiology was contacted for further evaluation and [...] NSTEMI on 07/29. She then went to lab director and received MARY to her [...] 07/29/17 1700 PTT >160.0* Recent Labs 07/30/17 0620 07/29/17 2339 07/29/17 1825 CK 162* 178* 193* [...] presented with: unstable angina (w/i 60 days). [place] [employer] angina class was III. This [...] priority for the procedure was Urgent. The NCDR indication for the procedure was PCI for [...] dose administered prior to arrival in the pathology laboratory aides teacher. ? Recommend continuing clopidogrel 75 mg PO [...] appointments: During 8am-5pm Tuesday through Tuesday call [phone] to speak with a nurse in the cardiology clinic All other times call [phone] and ask to speak to the communications consultant school plant consultant. Activity level: - No heavy lifting (more [...] from today as well. No future appointments. Film And Video Graphics Designer: Dr. Chang at [phone] PCP: Asya Hand MD at [phone] Your Inpatient Doctor(s) at [facility]: Vinh Henderson MD - Attending physician Jeri Ruiz MD - Resident physician - Flour Inspector physician Your Primary Care Provider: Asya Hand MD [address] / [place] [address] For questions regarding issues relating to your hospitalization on the Hospital Medicine Service, please contact your inpatient physician through the [facility] Playground Aide [phone]. Issues after hours and on weekends will be handled by the Hospitalist staff on-call. General Instructions None Discharge References/Attachments: Discharge References/Attachments None Inpatient Provider Contact Information: [facility] Cardiology - [phone] Electronically Signed By: Wyatt Coreas MD 08/01/2017 [...] appointments: During 8am-5pm Tuesday through Tuesday call [phone] to speak with a nurse in the cardiology clinic All other times call [phone] and ask to speak to the communications consultant school plant consultant. Activity level: - No heavy lifting (more [...] from today as well. No future appointments. Film And Video Graphics Designer: Dr. Chang at [phone] PCP: Asya Hand MD at [phone] Your Inpatient Doctor(s) at [facility]: Vinh Henderson MD - Attending physician Jeri Ruiz MD - Resident physician - Flour Inspector physician Your Primary Care Provider: Asya Hand MD [address] / [facility] [address] For questions regarding issues relating to your hospitalization on the Hospital Medicine Service, please contact your inpatient physician through the [facility] Playground Aide [phone]. Issues after hours and on weekends will [...] and plan with the house staff (resident, senior insight manager international). ?? Brief history: 52 yo woman presents [...] priority for the procedure was Urgent. The [facility] indication for the procedure was PCI [...] dose administered prior to arrival in the pathology laboratory aides teacher. ? Recommend continuing clopidogrel 75 mg PO [...] like to f/u with Dr. Chang in [place], [place] ?? The patient understands the plan and all questions were answered. ?? Vinh Aguilar. MD [place] * Alberto Ferguson RN - 07/30/2017 12:03 AM EDT Pt came back from pathology laboratory aides teacher around 1945 via stretcher with fluids running, [...] femoral access site and no issues Simona Bergman MD documented in this encounter H&P Notes * Vinh Henderson MD - 07/29/2017 4:58 PM EDT Images from the original note were not included. I have reviewed the pertinent information, examined the patient, and discussed the management and plan with the house staff (resident, senior insight manager international). Brief history: 52 yo woman presents with [...] Patient Name: Sahra Williamson Service: S2 Pager [phone] Responsible Attending: Dr. Henderson Primary Provider: Asya Hnad MD [phone] Chief Complaint: Chest Pain History of Present Illness: Ms. Williamson presents in transfer from [facility] with chest pain, now transferred for further management of NSTEMI. On the morning of presentation Ms. Williamson was awoken from sleep at 5:30 am by a stabbing, burning, piercing, crushing chest pain. It lasted without abating for several hours and she arrived at [facility]. She reports that for the past several [...] without a predictable pattern. On arrival at [facility] Ms. Williamson's vitals were normal temperature, [...] treated with a heparin bolus and infusion. [facility] cardiology was contacted for further evaluation and [...] Coronary artery disease 02/05/2016 Coronary angiogram at [facility]: LAD mid 50%, OM1 long 40%, RCA [...] 20 years ago Living Situation: Lives in [place], [place]. Lives alone, brothers within a few hours drive Vocation: Disabled due to back issues. 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 Part[place] [facility] [place] Pets: Unable to ask Vitals: Last [...] of recovery Alternate Decision Maker: Rudy Laureano [phone] Mian Covarrubias PGY-3 S2 Pager [phone] documented in this encounter Miscellaneous Notes * [...] 5/10 sharp SSCP. 2mg IV morphine given. [id number] and plavix 600mg given here. Pt arrived [...] unspecified vessel or lesion type, unspecified whether [place] or transplanted heart One Time for 1 Occurrences starting 07/30/2017 until 07/30/2017 documented as of this encounter Procedures Procedure Name Priority Date/Time Associated Diagnosis Comments IMPLANTABLE DEVICES SCAN 07/31/2017 12:00 AM EDT POWER LINEWORKER SCAN 07/31/2017 12:00 AM EDT CARDIAC CATH SCAN 07/31/2017 12: 00 AM EDT ECHO COMPLETE Routine 07/30/2017 12:29 PM EDT Coronary artery disease, angina presence unspecified, unspecified vessel or lesion type, unspecified whether [place] or transplanted heart EKG 12-LEAD Routine 07/30/2017 7:20 AM EDT Coronary artery disease, angina presence unspecified, unspecified vessel or lesion type, unspecified whether [place] or transplanted heart XR CHEST PA AND LATERAL Routine 07/30/20 6:54 AM EDT HEMOGRAM Routine 07/30/2017 6:20 AM EDT DIFFERENTIAL, AUTOMATED Routine 07/30/20 6:20 AM EDT CARDIAC ENZYMES ([facility]) Routine 07/30/2017 6:20 AM EDT CBC (WITH DIFF) Routine 07/30/2017 6:20 AM EDT LIPID PANEL (REFLEX DIRECT LDL) Routine 07/30/2017 6:20 AM EDT BASIC METABOLIC PANEL (NON-FASTING) Routine 07/30/2017 6:20 AM EDT URINALYSIS MICROSCOPIC EXAM Routine 07/30/2017 3:45 AM EDT URINE HOLD Routine 07/30/2017 3:45 AM EDT URINALYSIS WITH REFLEX CULTURE Routine 07/30/2017 3:45 AM EDT CARDIAC ENZYMES ([facility]) Routine 07/29/2017 11:39 PM EDT EKG 12-LEAD Routine 07/29/2017 7:10 PM EDT Coronary artery disease, angina presence unspecified, unspecified vessel or lesion type, unspecified whether [place] or transplanted heart HEMOGRAM Routine 07/29/2017 6:25 PM EDT DIFFERENTIAL, AUTOMATED Routine 07/29/20 17 6:25 PM EDT CARDIAC ENZYMES ([facility]) Routine 07/29/2017 6:25 PM EDT CBC (WITH DIFF) Routine 07/29/2017 6:25 PM EDT TSH Routine 07/29/2017 6:25 PM EDT PRO-BRAIN NATRIURETIC PEPTIDE Routine 07/29/2017 6:25 PM EDT MAGNESIUM Routine 07/29/2017 6:25 PM EDT CALCIUM Routine 07/29/2017 6:25 PM EDT BASIC METABOLIC PANEL (NON-FASTING) Routine 07/29/2017 6:25 PM EDT CARDIAC CATHETERIZATION Routine 07/29/20 17 6:22 PM EDT APTT STAT 07/29/2017 5:00 PM EDT EKG 12-LEAD Routine 07/29/2017 3:51 PM EDT Coronary artery disease, angina presence unspecified, unspecified vessel or lesion type, unspecified whether [place] or transplanted heart FILM LIBRARY STORAGE ONLY DX CHEST Routine 07/29/2017 12:00 AM EDT documented in this encounter Results * SCAN DOC: IMPLANTABLE DEVICES (07/31/2017 12:00 AM EDT) Narrative 07/31/2017 12:00 AM EDT Ordered by an unspecified provider. Scanning Provider MEDIA MGR SCAN EXT O RDR/RSLT * SCAN DOC: POWER LINEWORKER (07/31/2017 12:00 AM EDT) Anatomical Region Laterality [...] PM EDT Procedure: ?Transthoracic Echocardiogram Patient: ?JORDYN WALLACE A ? (Age): 1965(52y) Med Rec#: ? [id number] ?Sex: ?F ? Site Loc: ? [facility] ?Ht / Wt: ??170(cm)/80(kg) Pt. Loc: ?Adult Floor ? BSA: ?1.92 Study Date: ?? 07/30/2017 ?Pt. Type: Inpatient Tape: ? Referring: Vinh Henderson ([id number]) Referring: JOSE MARIA YANCEY R Reading: Neo Rodriguez ([id number]) Laryngologist: Deborah Ruiz BA, [facility] Diagnosis: *ICD-10-PCS Atherosclerotic heart disease of [place] coronary artery without angina pectoris (I25.10) BP: [...] E-wave Vmax ?0.5 ?m/sec ? MV deceleration [id number] ?msec ? MV A-wave Vmax ?0.5 ?m/sec [...] ? Mid-Inferior ?Hypokinetic ? Mid-Inferoseptal ?Normal ? Dana-Septal ? Normal ? Dana-Anterior ? Normal ? Dana-Lateral ?Normal ? Dana-Inferior ? Normal ? Dana-Tip ?Normal ? This report has been electronically signed by: Neo Rodriguez MD ? 07/30/2017 12:57:34 Images reviewed and interpretation verified [facility] Cardiac Ultrasound Laboratory Procedure Note Neo Rodriguez MD - 07/30/2017 Procedure: Transthoracic Echocardiogram Patient: JORDYN CERVANTES(Age): 1965(52y) Med Rec#: [id number] Sex: F Site Loc: [facility] Ht / Wt: 170(cm)/80(kg) Pt. Loc: Adult Floor BSA: 1.92 Study Date: 07/30/2017 Pt. Type: Inpatient Tape: Referring: Vinh Henderson ([id number]) Referring: JOSE MARIA YANCEY R Reading: Neo Rodriguez ([id number]) Laryngologist: Deborah Ruiz BA, [facility] Diagnosis: *ICD-10-PCS Atherosclerotic heart disease of [place] coronary artery without angina pectoris (I25.10) BP: [...] MV E-wave Vmax 0.5 m/sec MV deceleration [id number] msec MV A-wave Vmax 0.5 m/sec MV [...] Normal Mid-Posterolateral Normal Mid-Inferior Hypokinetic Mid-Inferoseptal Normal Dana-Septal Normal Dana-Anterior Normal Dana-Lateral Normal Dana-Inferior Normal Dana-Tip Normal This report has been electronically signed by: Neo Rodriguez MD 07/30/2017 12:57:34 Images reviewed and interpretation verified [facility] Cardiac Ultrasound Laboratory Vinh Henderson MD ECHO ORDERABLES * EKG 12 Lead (07/30/2017 7:20 AM EDT) Ventricular rate 58 BPM MUSE SYSTEM Atrial Rate 58 BPM MUSE SYSTEM P-R Interval 158 ms MUSE SYSTEM QRS Duration 90 ms MUSE SYSTEM Q-T Interval 466 ms MUSE SYSTEM QTC Calculated (Bezet) 457 ms MUSE SYSTEM Calculated P [place] 40 degrees MUSE SYSTEM Calculated R [place] -30 degrees MUSE SYSTEM Calculated T [place] -17 degrees MUSE SYSTEM INTERPRETATION Sinus bradycardia Left axis deviation RSR' or QR pattern in V1 suggests right ventricular conduction delay Nonspecific T wave abnormality Inferior leads Abnormal ECG Confirmed by MD Love Douglas ([id number]) on 07/30/2017 11:51:19 AM MUSE SYSTEM [...] 6:20 AM EDT) Neutrophils % 64.7 % [facility] Neutr Abs (ANC) 4.98 1.70 - 6.10 x10(3)/[facility] LABORAT[facility] Lymphocytes % 20.6 % [facility] Lymphocytes Abs 1.6 0.9 - 3.2 x10(3)/[facility]OR[facility] Monocytes % 11.7 % [facility] Monocyte Abs 0.9 0.3 - 0.9 x10(3)/[facility] Eosinophils % 2.0 % [facility] Eosinophils Abs 0.2 0.0 - 0.4 x10(3)/[facility]OR[facility] Basophils % 0.7 % [facility] Basophils Abs 0.0 0.0 - 0.1 x10(3)/[facility]ORATORY Immature Gran % 0.30 % [facility] Comment: Immature granulocytes(IG's)percentage and absolute count will include metamyelocytes, myelocytes, and promyelocytes. Blood smears from CBCs yielding IG's will be scanned manually for concordance. If this scan disagrees with the automated IG or if promyelocytes are noted, a manual differential will be performed. Patsy Gran Abs 0.02 0.00 - 0.04 x10(3)/[facility] LABORATORY Blood specimen (specimen) 07/30/2017 6:20 AM EDT 07/30/2017 6:32 AM EDT Narrative Resulting Agency Comment Spec In Lab Neo Rodriguez MD HEMATOLOGY ORDERABLE S Performing Organization Address City/[facility]/ZIP Co de Phone Number [facility] [place] [address] * (ABNORMAL) Hemogram (07/30/2017 6:20 AM EDT) WBC 7.7 4.0 - 9.5 x10(3)/[facility] LABORATORY RBC 5.34(H) 4.00 - 5.21 x10(6)/[facility] Hemoglobin 16.4(H) 11.7 - 15.5 gm/dL [facility] Hematocrit 48.4(H) 35.7 - 45.8 % [facility] MCV 90.6 82.6 - 94.4 [facility] LABORATORY MCH 30.7 27.1 - 32.0 pg [facility] MCHC 33.9 31.7 - 35.0 gm/dL [facility] Platelets 180 145 - 357 x10(3)/[facility]ORATORY RDWSD 48.8(H) 37.0 - 46.0 [facility] RDWCV 14.7(H) 11.5 - 14.1 % [facility] MPV 10.5 7.6 - 12.9 [facility] nRBC % Auto 0.0 % [facility] nRBC Abs Auto 0.000 0.000 - 0.000 x10(3)/[facility] Blood specimen (specimen) 07/30/2017 6:20 AM EDT 07/30/2017 6:32 AM EDT Narrative Resulting Agency Comment Spec In Lab Neo Rodriguez MD HEMATOLOGY ORDERABLE S [facility] [place] [address] * Basic Metabolic Panel (non-fasting) (07/30/2017 6:20 AM EDT) Glucose Lvl 98 65 - 199 mg/dL [facility] Comment:Diabetes: >=200 mg/d L plus symptoms BUN 11 8 - 18 mg/dL [facility] Creatinine 0.87 0.70 - 1.20 mg/dL [facility] Sodium 138 135 - 145 mmol/L [facility] Potassium 4.3 3.5 - 5.0 mmol/L [facility] Comment: Please note: ??Patients with WBC >100,000 may have falsely elevated Potassium levels. ??For accurate Potassium quantification in these patients send serum separator tube (gold top) for subsequent determinations. ??Contact the Clinical Chemistry Laboratory if there are any questions. Chloride 102 98 - 107 mmol/L [facility] CO2 27 22 - 31 mmol/L [facility] Anion Gap 9 5 - 15 mmol/L [facility] Calcium 8.7 8.5 - 10.5 mg/dL [facility] Estimated GFR >60 >=60 [facility] Comment: The reported eGFR should be multiplied by 1.2 for patients. The MDRD is not an appropriate measure of renal function for patients with body mass extremes or in patients with acute kidney failure. http://KnowledgeMill.Meggatel/DHnkdep http://[facility]/DHMCnkf Blood specimen (specimen) 07/30/2017 6:20 AM EDT 07/30/2017 6:32 AM EDT Narrative Resulting Agency Comment Spec In Lab Neo Rodriguez MD CHEMISTRY ORDERABLES [facility] [place] [address] * Lipid Panel (07/30/2017 6:20 AM EDT) Chol, Total 163 <=239 mg/dL [facility] Triglycerides 91 <=199 mg/dL [facility] HDL 50 >=40 mg/dL [facility] LDL Cholesterol 95 <=190 mg/dL [facility] Chol/HDL Ratio 3.3 ratio [facility] Lipid Interpretation See Note [facility] Comment: Lipid management should be guided by a patient? s ASCVD risk, goals and preferences. ACC/AHA Guidelines recommend high intensity statin if clinical ASCVD or LDL greater than or equal to 190 mg/dL. http://[employer]ledgeMill.com/IDV-PVL-Tmirzboyt Adults aged 40-75 with LDL 70-189 mg/dL should have their 10 year ASCVD risk estimated with the ACC/AHA ASCVD risk weather algorithm scientist http://tools.acc.org/HIIZE-Iydl-Uhafxrmxh/ Statin should be discussed if risk greater [...] Henderson MD CHEMISTRY ORDERABLES Performing Organization Address City/State/[facility] Co de Phone Number [facility] [place] [address] * (ABNORMAL) Cardiac Enzymes (07/30/2017 6:20 AM EDT) Troponin-T 0.13(H) 0.00 - 0.00 ng/mL [facility] Comment: The 99th percentile for Troponin T is less than 0.01 ng/mL, any detectable cTnT concentration using this assay should be considered elevated. According to the third universal definition of myocardial infarction the following criteria with a clinical presentation consistent with acute myocardial ischemia meets the diagnosis for a myocardial infarction (VT). Detection of a rise and/or fall of cTnT, with at least one value greater than the 99th percentile (> or = 0.01) and with at least one of the following ?? Symptoms of ischemia ?? New or presumed new significant CA-aiwppmd-B wave (ST-T) changes or new left bundle [...] additional sample may be indicated. Reference: Third [place] Definition of Myocardial Infarction. Journal of the [place] [employer] 2012;60:1581-98 CK, Total 162(H) 0 - 160 unit/L [facility] Blood specimen (specimen) 07/30/2017 6:20 AM EDT 07/30/2017 6:33 AM EDT Narrative Resulting Agency Comment Spec In Lab Vinh Henderson MD CHEMISTRY ORDERABLES Performing Organization Address City/[facility]/ZIP Co de Phone Number [facility] [place] [address] * Urinalysis Microscopic Exam (07/30/2017 3:45 AM EDT) RBC UA 1 0 - 4 /HPF [facility] WBC UA <1 0 - 5 /HPF [facility] Squam Epith UA 1 <=4 /HPF [facility] Urine specimen (specimen) 07/30/2017 3:45 AM EDT 07/30/2017 3:58 AM EDT Narrative Resulting Agency Comment Spec In Lab Vinh Henderson MD URINE ORDERABLES Performing Organization Address City/[facility]/ZIP Co de Phone Number [facility] [place] [address] * Urine Hold (07/30/2017 3:45 AM EDT) Urine Hold Sample in lab. [facility] Urine specimen (specimen) Urine / Unknown 07/30/2017 3:45 AM EDT 07/30/2017 3:59 AM EDT Vinh Henderson MD URINE ORDERABLES Performing Organization Address [facility] Co de Phone Number [facility] [place] [address] * (ABNORMAL) Urinalysis with reflex Culture (07/30/2017 3:45 AM EDT) Glucose UA Negative Negative mg/dL [facility] Protein UA Negative Negative mg/dL [facility] Bilirubin UA Negative Negative mg/dL [facility] Comment: Clinical correlation required for positive Urine Bilirubin results as false positive may occur with some drugs and drug related products. If a false positive is suspected a serum total bilirubin should be considered if clinically indicated. Urobilinogen UA Normal Normal mg/dL [facility] pH UA 5.0 5.0 - 8.0 [facility] Blood UA Moderate(A) Negative mg/dL [facility] Ketones UA Negative Negative mg/dL [facility] Nitrite UA Negative Negative [facility] Leukocytes UA Negative Negative mcL [facility] Appearance UA Clear Clear [facility] Spec [place] UA >1.035(H) 1.002 - 1.030 [facility] Color UA Yellow Yellow [facility] Culture Reflexed No [facility] Urine specimen (specimen) 07/30/2017 3:45 AM EDT 07/30/2017 3:58 AM EDT Narrative Resulting Agency Comment Spec In Lab Vinh Henderson MD URINE ORDERABLES Performing Organization Address [facility]/ZIP Co de Phone Number [facility] [place] [address] * (ABNORMAL) Cardiac Enzymes (07/29/2017 11:39 PM EDT) Troponin-T 0.22(H) 0.00 - 0.00 ng/mL [facility] Comment: The 99th percentile for Troponin T is less than 0.01 ng/mL, any detectable cTnT concentration using this assay should be considered elevated. According to the third universal definition of myocardial infarction the following criteria with a clinical presentation consistent with acute myocardial ischemia meets the diagnosis for a myocardial infarction (VT). Detection of a rise and/or fall of cTnT, with at least one value greater than the 99th percentile (> or = 0.01) and with at least one of the following ?? Symptoms of ischemia ?? New or presumed new significant PH-pqmxahs-G wave (ST-T) changes or new left bundle [...] additional sample may be indicated. Reference: Third [place] Definition of Myocardial Infarction. Journal of the [place] [employer]iology 2012;60:1581-98 CK, Total 178(H) 0 - 160 unit/L [facility] Blood specimen (specimen) 07/29/2017 11:39 PM EDT 07/29/2017 11:44 PM EDT Narrative Resulting Agency Comment Spec In Lab Vinh Henderson MD CHEMISTRY ORDERABLES [facility] [place] [address] * EKG 12 Lead (07/29/2017 7:10 PM EDT) [facility] Ventricular rate 50 BPM MUSE SYSTEM Atrial Rate 50 BPM MUSE SYSTEM P-R Interval 178 ms MUSE SYSTEM QRS Duration 84 ms MUSE SYSTEM Q-T Interval 498 ms MUSE SYSTEM QTC Calculated (Bezet) 454 ms MUSE SYSTEM Calculated P [place] 37 degrees MUSE SYSTEM Calculated R [place] -16 degrees MUSE SYSTEM Calculated T [place] -7 degrees MUSE SYSTEM INTERPRETATION Sinus bradycardia RSR' or QR pattern in V1 suggests right ventricular conduction delay Borderline ECG Confirmed by MD Love Douglas ([id number]) on 07/30/2017 11:50:35 AM MUSE SYSTEM 07/29/2017 7:10 PM EDT 07/30/2017 11:50 AM EDT Vinh Henderson MD ECG ORDERABLES MUSE SYSTEM * (ABNORMAL) Differential, Automated (07/29/2017 6:25 PM EDT) Neutrophils % 48.9 % [facility] Neutr Abs (ANC) 4.38 1.70 - 6.10 x10(3)/[facility] LABORATORY Lymphocytes % 37.2 % [facility] Lymphocytes Abs 3.3(H) 0.9 - 3.2 x10(3)/[facility] LABORATORY Monocytes % 10.5 % [facility] Monocyte Abs 0.9 0.3 - 0.9 x10(3)/[facility] LABORATORY Eosinophils % 2.5 % [facility] Eosinophils Abs 0.2 0.0 - 0.4 x10(3)/[facility] LABORATORY Basophils % 0.7 % [facility] Basophils Abs 0.1 0.0 - 0.1 x10(3)/[facility] LABORAT[facility] Immature Gran % 0.20 % [facility] [facility] Comment: Immature granulocytes(IG's)percentage and absolute count will include metamyelocytes, myelocytes, and promyelocytes. Blood smears from CBCs yielding IG's will be scanned manually for concordance. If this scan disagrees with the automated IG or if promyelocytes are noted, a manual differential will be performed. Patsy Gran Abs 0.02 0.00 - 0.04 x10(3)/[facility] LABORATORY Blood specimen (specimen) 07/29/2017 6:25 PM EDT 07/29/2017 6:43 PM EDT Narrative Resulting Agency Comment Spec In Lab Vinh Henderson MD HEMATOLOGY ORDERABLE S [facility] [place] [address] * (ABNORMAL) Hemogram (07/29/2017 6:25 PM EDT) [facility] WBC 9.0 4.0 - 9.5 x10(3)/[facility] LABORATORY RBC 5.18 4.00 - 5.21 x10(6)/[facility] LABORATORY Hemoglobin 15.5 11.7 - 15.5 gm/dL [facility] Hematocrit 47.7(H) 35.7 - 45.8 % [facility] MCV 92.1 82.6 - 94.4 [facility] LABORATORY MCH 29.9 27.1 - 32.0 pg [facility] MCHC 32.5 31.7 - 35.0 gm/dL [facility] Platelets 194 145 - 357 x10(3)/[facility] LABORATORY RDWSD 51.1(H) 37.0 - 46.0 [facility] LABORATORY RDWCV 14.9(H) 11.5 - 14.1 % [facility] MPV 10.4 7.6 - 12.9 [facility] LABORATORY nRBC % Auto 0.0 % [facility] LABORATORY nRBC Abs Auto 0.000 0.000 - 0.000 x10(3)/[facility] LABORATORY Blood specimen (specimen) 07/29/2017 6:25 PM EDT 07/29/2017 6:43 PM EDT Narrative Resulting Agency Comment Spec In Lab Vinh Henderson MD HEMATOLOGY ORDERABLE S [facility] [place] [address] * (ABNORMAL) Cardiac Enzymes (07/29/2017 6:25 PM EDT) [facility] Troponin-T 0.17(H) 0.00 - 0.00 ng/mL [facility] Comment: The 99th percentile for Troponin T is less than 0.01 ng/mL, any detectable cTnT concentration using this assay should be considered elevated. According to the third universal definition of myocardial infarction the following criteria with a clinical presentation consistent with acute myocardial ischemia meets the diagnosis for a myocardial infarction (VT). Detection of a rise and/or fall of cTnT, with at least one value greater than the 99th percentile (> or = 0.01) and with at least one of the following ?? Symptoms of ischemia ?? New or presumed new significant HK-yoefbko-N wave (ST-T) changes or new left bundle [...] additional sample may be indicated. Reference: Third [place] Definition of Myocardial Infarction. Journal of the [place] [employer]iology 2012;60:1581-98 CK, Total 193(H) 0 - 160 unit/L [facility] Blood specimen (specimen) 07/29/2017 6:25 PM EDT 07/29/2017 6:43 PM EDT Narrative Resulting Agency Comment Spec In Lab Vinh Henderson MD CHEMISTRY ORDERABLES Performing Organization Address City/[facility] Co de Phone Number [facility] [place] [address] * (ABNORMAL) pro-Brain Natriuretic Peptide (07/29/2017 6:25 PM EDT) [facility] ProBNP 342(H) <=125 pg/mL [facility] Blood specimen (specimen) 07/29/2017 6:25 PM EDT 07/29/2017 6:43 PM EDT Narrative Resulting Agency Comment Spec In Lab Vinh Henderson MD CHEMISTRY ORDERABLES [facility] [place] [address] * TSH (07/29/2017 6:25 PM EDT) Pathologist [facility] TSH 2.10 0.27 - 4.20 mlU/ML [facility] Blood specimen (specimen) 07/29/2017 6:25 PM EDT 07/29/2017 6:43 PM EDT Narrative Resulting Agency Comment Spec In Lab Vinh Henderson MD CHEMISTRY ORDERABLES Performing Organization Address City/[facility]/ZIP Co de Phone Number [facility] [place] [address] * Magnesium (07/29/2017 6:25 PM EDT) [facility] Magnesium 0.85 0.69 - 1.07 mmol/L [facility] Blood specimen (specimen) 07/29/2017 6:25 PM EDT 07/29/2017 6:43 PM EDT Narrative Resulting Agency Comment Spec In Lab Vinh Henderson MD CHEMISTRY ORDERABLES Performing Organization Address City/[facility]/ZIP Co de Phone Number [facility] [place] [address] * Calcium (07/29/2017 6:25 PM EDT) [facility] Calcium 8.6 8.5 - 10.5 mg/dL [facility] Blood specimen (specimen) 07/29/2017 6:25 PM EDT 07/29/2017 6:43 PM EDT Narrative Resulting Agency Comment Spec In Lab Vinh Henderson MD CHEMISTRY ORDERABLES Performing Organization Address City/[facility]/ZIP Co de Phone Number [facility] [place] [address] * Basic Metabolic Panel (non-fasting) (07/29/2017 6:25 PM EDT) Glucose Lvl 70 65 - 199 mg/dL [facility] Comment:Diabetes: >=200 mg/d L plus symptoms BUN 13 8 - 18 mg/dL [facility] Creatinine 0.88 0.70 - 1.20 mg/dL [facility] Sodium 139 135 - 145 mmol/L [facility] Potassium 4.6 3.5 - 5.0 mmol/L [facility] Comment: Please note: ??Patients with WBC >100,000 may have falsely elevated Potassium levels. ??For accurate Potassium quantification in these patients send serum separator tube (gold top) for subsequent determinations. ??Contact the Clinical Chemistry Laboratory if there are any questions. Chloride 102 98 - 107 mmol/L [facility] CO2 26 22 - 31 mmol/L [facility] Anion Gap 11 5 - 15 mmol/L [facility] Calcium 8.6 8.5 - 10.5 mg/dL [facility] Estimated GFR >60 >=60 [facility] LAB[facility]ATORY Comment: The reported eGFR should be multiplied by 1.2 for patients. The MDRD is not an appropriate measure of renal function for patients with body mass extremes or in patients with acute kidney failure. http://[employer]Meggatel/DHnkdep [email or web address]://[facility]/DHMCnkf Blood specimen (specimen) 07/29/2017 6:25 PM EDT 07/29/2017 6:43 PM EDT Narrative Resulting Agency Comment Spec In Lab Vinh Henderson MD CHEMISTRY ORDERABLES [facility] [place] [address] * CARDIAC CATHETERIZATION (07/29/2017 6:22 PM EDT) Anatomical Region Laterality Modality Other Narrative 07/29/2017 6:53 PM EDT ?[facility] ? Cardiac Catheterization/Intervention Report ? Patient Name: Williamson, Sahra A. ? Procedure Date: 07/29/2017 ? A #: [id number] ? Primary Physician: Chen, Jim J ? Case #: [id number] ? File Name: [id number] ? Catheterization Order Number: [id number] ? [facility] ? Final Report [place], [place] ? Patient Name: ? Sahra A. Williamson ? ID#: ?[id number] ? : ?1965 ? Procedure Date: ? July 29, 2017 ? Case #: ? [id number] ? Room: ? 6 ? Case Physician: [...] ?* Access Site Angiography ? History ?Sahra Williamson is a 52 [...] presented with: unstable angina (w/i 60 days). [place] ?Cardiovascular Society angina class was III. This [...] dose administered prior to arrival in the pathology laboratory aides teacher. ?Recommend continuing clopidogrel 75 mg PO daily [...] Procedure Note Jim Chen MD - 12/22/2017 [facility] Cardiac Catheterization/Intervention Report Patient Name: Sahra WilliamsonFloresita Procedure Date: 07/29/2017 A #: [id number] Primary Physician: Jim Chen Case #: [id number] File Name: [id number] Catheterization Order Number: [id number] [facility] FinalReport [place], [place] Patient Name: Sahra Williamson ID#:[id number] :1965 Procedure Date: July 29, 2017 Case [...] presented with: unstable angina (w/i 60 days). [place] Cardiovascular Society angina class was III. This [...] Thepriority for the procedure was Urgent. [facility] the procedure[facility] PCI for high [...] The lesion was predilated with a 2.50mm [id number] MM balloon with a maximum inflation pressure [...] dose administered prior to arrival in the pathology laboratory aides teacher. Recommend continuing clopidogrel 75 mg PO daily [...] sedation nurse. Case time =01:03. Dr. Jim J Chen, M.D. performed the coronary angiography, leftheart catheterization, stent insertion-coronary, access site angiography and vascular closure device. Jim Chen M.D. Electronically Signed by: Jim Chen M.D. Report Finalized: 07/29/2017 18:42 Report Last Ammended: 12/22/2017 11:11 Neo Rodriguez MD CARDIAC CATH ORDERAB LES * (ABNORMAL) APTT (07/29/2017 5:00 PM EDT) [facility] PTT >160.0(Cr itical) 25 - 35 [facility] Comment: Called by: EDGAR, Read back by: Mary Avitia, Date/Time:07/29/17 18:46. The recommended therapeutic range for full dose, unfractionated heparin at [facility] is 80 ? 114 seconds. The use of the anti-Xa (heparin) level rather than the PTT is recommended for monitoring anticoagulation intensity in critically ill patients receiving unfractionated heparin by continuous IV infusion. Blood specimen (specimen) 07/29/2017 5:00 PM EDT 07/29/2017 6:12 PM EDT Narrative Resulting Agency Comment Spec In Lab Neo Rodriguez MD HEMATOLOGY ORDERABLE S [facility] [place] [address] * EKG 12 Lead (07/29/2017 3:51 PM EDT) [facility] Ventricular rate 51 BPM MUSE SYSTEM Atrial Rate 51 BPM MUSE SYSTEM P-R Interval 164 ms MUSE SYSTEM QRS Duration 84 ms MUSE SYSTEM Q-T Interval 486 ms MUSE SYSTEM QTC Calculated (Bezet) 447 ms MUSE SYSTEM Calculated P [place] 24 degrees MUSE SYSTEM Calculated R [place] -20 degrees MUSE SYSTEM Calculated T [place] -8 degrees MUSE SYSTEM INTERPRETATION Sinus bradycardia [...] DX Chest (07/29/2017 12:00 AM EDT) Narrative [facility] - 07/29/2017 5:25 PM EDT This exam is for storage only and is auto-finalizing. Neo Rodriguez MD IMG FILM LIBRARY ORD ERABLES Performing Organization Address City/[facility]/ZIP Co de Phone Number [facility] [place], [place] documented in this encounter Visit Diagnoses Not on filedocumented in this encounter Admitting Diagnoses Diagnosis NSTEMI [...] AM EDT 500 mg aspirin chewable tablet 81 mg 81 mg, Oral, DAILY, First dose on 07/30/17 at 0900, Until Discontinued, Routine Given 07/30/2017 9:22 AM EDT 81 mg atorvastatin (LIPITOR) tablet 40 mg 40 mg, Oral, EVERY EVENING, First dose on 07/31/17 at 1700, Until Discontinued, Routine clopidogrel (PLAVIX) tablet 75 mg 75 mg, Oral, DAILY, First dose on 07/30/17 at 0945, Until Discontinued, Routine Given 07/30/2017 9:33 AM EDT 75 mg fentaNYL 50 mcg/mL multi-dose injection ONCE PRN, Starting on 07/29/17 at 1705, Until Tue07/29/17 at 1816, Intra-Operative (Intra-Procedure), Routine Given 07/29/2017 6:02 PM EDT 25 mcg Given 07/29/2017 5:39 PM EDT 25 mcg Given 07/29/2017 5:05 PM EDT 50 mcg FLUoxetine (PROzac) capsule 40 mg 40 mg, [...] aPTT in 6 hours. , Routine heparin (porcine) injection ONCE PRN, Starting on Tue07/29/17 at 1711, Until Tue07/29/17 at 1816, Cath (Intra-Procedure), Routine Given 07/29/2017 5:23 PM EDT 4,000 Units Given 07/29/2017 5:11 PM EDT 2,000 Units heparin 25,000 units in dextrose 5% 500 [...] Indication: ACS (STEMI vs NSTEMI vs UA) iohexol (OMNIPAQUE) 350 mg/mL solution ONCE PRN, Starting on Tue07/29/17 at 1812, Until Tue07/29/17 at 1816, Cath (Intra-Procedure), Routine Given 07/29/2017 6:12 PM EDT 155 mLs lamoTRIgine (LaMICtal) tablet 150 mg 150 mg, Oral, DAILY, First dose on 07/30/17 at 0900, Until Discontinued, Routine Given 07/30/2017 9:22 AM EDT 150 mg meTOPROLOL succinate (TOPROL-XL) XL tablet 50 mg 50 mg, Oral, DAILY, First dose on 07/30/17 at 0945, Until Discontinued, DO NOT CRUSH OR OPEN, Routine Given 07/30/2017 9:33 AM EDT 50 mg midazolam (PF) (VERSED) 1 mg/mL multi-dose injection ONCE PRN, Starting on Tue07/29/17 at 1704, Until Tue07/29/17 at 1816, Cath (Intra-Procedure), Routine Given 07/29/2017 5:39 PM EDT 1 mg Given 07/29/2017 5:01 PM EDT 1 mg montelukast (SINGULAIR) tablet 10 mg 10 mg, Oral, NIGHTLY, First dose on Tue07/29/17 at 2100, Until Discontinued, Routine Given 07/29/2017 10:3 3 PM EDT 10 mg morphine 2 mg/mL [...] Given 07/30/2017 9:24 AM EDT 5 mLs documented in this encounter Active and Recently Administered Medications Times are shown in EDT. Scheduled Medication Order 07/28/2017 07/29/2017 07/30/2017 aspirin chewable tablet 325 mg (COMPLETED) 325 mg, Oral, ONCE, 1 dose, On Tue07/29/17 at 1630, STAT 1635 (Given - Provider: Angeles Araujo, KOREY) aspirin chewable tablet 81 mg 81 mg, Oral, DAILY, First dose on Tue07/30/17 at 0900, Until Discontinued, Routine 1643 (NOV Hold - Provider: Admin Adt - Reason: Transfer to a Procedural area)1943 (NOV Unhold - Provider: Admin Adt) 0922 (Given - Provider: Jennyfer Alvarado RN) atorvastatin (LIPITOR) tablet 40 mg (CANCELED) 40 mg, Oral, EVERY EVENING, First dose on Tue07/29/17 at 1700, Until Discontinued, Routine 1635 (Given - Provider: Angeles Araujo RN)1643 (MAR Hold - Provider: Admin Adt - Reason: Transfer to a Procedural area)194 ([facility] Unhold - Provider: Admin Adt) atorvastatin [...] 600 mg, Oral, ONCE, 1 dose, On 07/29/17 at 1630, Cath (Day of Procedure), STAT 1635 (Given - Provider: Angeles Araujo RN) clopidogrel (PLAVIX) tablet 75 mg 75 mg, Oral, DAILY, First dose on 07/30/17 at 0945, Until Discontinued, Routine 09 (Given - Provid er: Jennyfer Alvarado RN) FLUoxetine (PROzac) capsule 40 mg 40 mg, Oral, DAILY, First dose on Tue07/29/17 at 1800, Until Discontinued, Routine 1643 (MAR Hold - Provider: Admin Adt - Reason: Transfer to a Procedural area)1800 (Automatically Held - Provider: Admin Adt)194 ([facility] Unhold - Provider: Admin Adt) 0922 (Given - Provider: Jennyfer Alvarado RN) lamoTRIgine (LaMICtal) tablet 150 mg 150 mg, Oral, DAILY, First dose on 07/30/17 at 0900, Until Discontinued, Routine 1643 (MAR Hold - Provider: Admin Adt - Reason: Transfer to a Procedural area)194 ([facility] Unhold - Provider: Admin Adt) 0922 (Given - Provider: Jennyfer Alvarado RN) meTOPROLOL succinate (TOPROL-XL) XL tablet 50 mg 50 mg, Oral, DAILY, First dose on 07/30/17 at 0945, Until Discontinued, DO NOT CRUSH OR OPEN, Routine 0933 (Given - Provid er: Jennyfer Alvarado RN) montelukast (SINGULAIR) tablet 10 mg 10 mg, Oral, NIGHTLY, First dose on Tue07/29/17 at 2100, Until Discontinued, Routine 1642 ([facility] Hold - Provider: Admin Adt - Reason: Transfer to a Procedural area)1942 ([facility] Unhold - Provider: Admin Adt)223 (Given - Provider: Alberto Ferguson RN) nicotine (NICODERM CQ) 7 mg/24 hr patch 7 mg(Linked Group 2) 7 mg, Transdermal, DAILY, First dose on Tue07/29/17 at 1800, Until Discontinued, Routine 1642 ([facility] Hold - Provider: Admin Adt - Reason: Transfer to a Procedural area)1800 (Automatically Held - Provider: Admin Adt)1942 ([facility] Unhold - Provider: Admin Adt) 0900 (Not Given - Provider: Jennyfer Alvarado RN - Reason: Patient/family refused) nicotine (NICODERM CQ) 7 mg/24 hr patch Patch Removal(Linked Group 2) Transdermal, DAILY, First dose on Tue07/30/17 at 0900, Until Discontinued, Remove nicotine 7 mg/24 hr patch 1642 ([facility] Hold - Provider: Admin Adt - Reason: Transfer to a Procedural area)1942 ([facility] Unhold - Provider: Admin Adt) 0900 (Patch Not Removed (add comment) - Provider: Jennyfer Alvarado RN - Comment: patch not applied) nicotine (NICODERM CQ) 7 mg/24 hr patch Patch Verification(Linked Group 2) Transdermal, 2 TIMES DAILY, First dose on Tue07/30/17 at 0900, Until Discontinued, Verify nicotine 7 mg/24 hr patch. 1642 ([facility] Hold - Provider: Admin Adt - Reason: Transfer to a Procedural area)1942 ([facility] Unhold - Provider: Admin Adt) 0900 (Not Given - Provider: Jennyfer Alvarado RN - Reason: See comment - Comment: not applied) pregabalin (LYRICA) capsule 75 mg 75 mg, Oral, DAILY, First dose on Tue07/29/17 at 1800, Until Discontinued, Routine 1642 ([facility] Hold - Provider: Admin Adt - Reason: Transfer to a Procedural area)1800 (Automatically Held - Provider: Admin Adt)1942 ([facility] Unhold - Provider: Admin Adt) 0922 (Given - Provider: Jennyfer Alvarado RN) sodium chloride 0.9 % flush 5 mL 5 mL, Intravenous, 2 TIMES DAILY, First dose on Tue07/29/17 at 2100, Until Discontinued, Routine 1643 (NOV Hold - Provider: Admin Adt - Reason: Transfer to a Procedural area)1943 (NOV Unhold - Provider: Admin Adt)2100 (Not Given [...] - Comment: Not administered prior to heart cath)1642 (NOV Hold - Provider: Admin Adt - Reason: Transfer to a Procedural area)1942 (NOV Unhold - Provider: Admin Adt) sodium [...] (Intra-Procedure), Routine 1705 (Given - Provider: Daphne Cunha, KOREY)1739 (Given - Provider: Daphne Cunha RN)1802 (Given [...] area)1942 (NOV Unhold - Provider: Admin Adt) heparin (porcine) injection (CANCELED) ONCE PRN, Starting on Tue07/29/17 at 1711, Until Tue07/29/17 at 1816, Cath (Intra-Procedure), Routine 1711 (Given - Provider: Daphne Cunha, KOREY)1723 (Given - Provider: Daphne Cunha RN) iohexol (OMNIPAQUE) 350 mg/mL solution (CANCELED) ONCE PRN, Starting on Tue07/29/17 at 1812, Until Tue07/29/17 at 1816, Cath (Intra-Procedure), Routine 181 (Given - Provider: Daphne Cunha RN) lidocaine (XYLOCAINE) 10 mg/mL (1 %) injection 3 mg 3 mg (0.3 mL), Subcutaneous, ONCE PRN, 1 dose, Starting on Tue07/29/17 at 1607, Until 07/30/17 at 1748, for discomfort with PIV insertion, Routine 164 (NOV Hold - Provider: Admin Adt - Reason: Transfer to a Procedural area)194 ([facility] Unhold - Provider: Admin Adt) midazolam (PF) (VERSED) 1 mg/mL multi-dose injection (CANCELED) ONCE PRN, Starting on Tue07/29/17 at 1704, Until Tue07/29/17 at 1816, Cath (Intra-Procedure), Routine 170 (Given - Provider: Daphne Cunha RN)1739 (Given - Provider: Daphne Cunha RN) morphine 2 mg/mL carpuject 2 mg 2 mg, Intravenous, EVERY 3 HOURS PRN, Starting on Tue07/29/17 at 1618, Until 07/30/17 at 1748, Pain, May give an additional 2 mg in 30 minutes once if pain not relieved., Routine 1635 (Given - Provider: Angeles Araujo, KOREY)164 (NOV Hold - Provider: Admin Adt - Reason: Transfer to a Procedural area)194 (MAR Unhold - Provider: Admin Adt) nitroGLYcerin (NITROSTAT) [...] PRN, Starting on Tue07/29/17 at 1607, Until Tue07/30/17 at 1748, flush, Flush pertains to all indwelling lines. Flush per protocol found in the job aid using the link provided on this medication record., Routine 164 (NOV Hold - Provider: Admin Adt - Reason: Transfer to a Procedural area)194 (NOV Unhold - Provider: Admin Adt) Linked Groups [...] Units/hr (0-100 mL/hr), Intravenous, CONTINUOUS, Starting on 07/29/17 at 1630, Until 07/30/17 at 1748, BEGIN [...] UA) documented in this encounter Care Teams Tanker Serviceman Relationship Specialty Start Date End Date Asya Hand MD [address] [place] [address] PCP - General Oncology 06/11/16 08/09/19 documented as of this encounter
--- OUTSIDE RECORDS SUMMARY | 2024-04-13 11:21 | XMS_ITS | Encounter Summary ---
Author Organization [facility] [place] [address] Care Team Providers Care Lower School Music Teacher Name Role Phone CristoferPark reyes MYAH Primary Care Provider [phone] Encounter Details Date Type Department Care Team (Latest Contact Info) Description 04/25/2012 - 04/25/2012 12:04 AM EDT Hospital Encounter Radiology Library at [facility] [place] [address] Tessa Vázquez REVENUE AGENT [facility] [place] [address] Discharge Disposition: Home Social History Tobacco Use Types Packs/Day Years Used Date Smoking Tobacco: Every Day Cigarettes 0.5 25 Smokeless Tobacco: Never Comments:avs information Alcohol Use Standard Drinks/Week Comments No 0 (1 standard drink = 0.6 oz pur e alcohol) Sex and Gender Information Value Date Recorded Sex Assigned at Not on file Gender Identity Not on file Sexual Orientation Not on file documented as of this encounter Medications at Time of Discharge Medication Sig Dispensed Refills Start Date End Date QUEtiapine (SEROQUEL) 50 mg tablet Take 150 mg by mouth nightly. 02/04/2016 metoprolol succinate (TOPROL-XL) 50 mg 24 hr tablet Take 50 mg by mouth daily. 02/04/2016 metoprolol succinate (TOPROL-XL) 25 mg 24 hr tablet Take 25 mg by mouth daily. 02/04/2016 divalproex (DEPAKOTE ER) 500 mg 24 hr tablet Take 500 mg by mouth nightly. 02/04/2016 Indomethacin (INDOCIN) 50 mg suppositoryIndicati ons:Headache(784.0) Place 1 suppository rectally 3 times daily as needed. 10 suppository 5 02/25/2012 02/04/2016 promethazine (PHENERGAN) [address] 1 suppository rectally 3 times daily as needed for Nausea. Caution:sedation. Or as directed 10 suppository 11 02/25/2012 02/04/2016 verapamil (CALAN SR) 120 mg CR tablet Take 1 tablet by mouth nightly. 30 tablet 5 12/02/2011 02/04/2016 gabapentin (NEURONTIN) 300 mg capsule Take 2 capsules by mouth 3 times daily. 180 capsule 5 11/03/2011 02/04/2016 OXYcodone (ROXICODONE) 15 mg immediate release tablet Take 15 mg by mouth every 4 hours as needed. (7x per day) 02/04/2016 docusate sodium (COLACE) 100 mg capsule Take 100 mg by mouth daily as needed. 02/15/2011 02/04/2016 lamoTRIgine (LAMICTAL) 100 mg tablet Take 100 mg by mouth daily. 06/11/2016 documented as of this encounter Plan of Treatment Not on file documented as of this encounter Procedures Procedure Name Priority Date/Time Associated Diagnosis Comments FILM LIBRARY STORAGE ONLY MR SPINE Routine 04/25/2012 12:00 AM EDT documented in this encounter Results * Film Library- Storage Only MR Spine (04/25/2012 12:00 AM EDT) Narrative [facility] - 07/19/2018 3:33 PM EDT This exam is for storage only and is auto-finalizing. Tessa Vázquez APRN IMSue FILM LIBRARY ORD ERABLES [place], [place] documented in this encounter Visit Diagnoses Not on filedocumented in this encounter Care Teams Lower School Music Teacher Relationship Specialty Start Date End Date Park Rawls APRN [address] [place] [address] PCP - General 10/03/11 02/05/16 documented as of this encounter
--- OUTSIDE RECORDS SUMMARY | 2024-04-13 11:21 | XMS_ITS | Encounter Summary ---
Author Organization [facility] [place] [address] Care Team Providers Care Parts Processor Name Role Phone CristoferPark reyes MYAH Primary Care Provider Encounter Details Date Type Department Care Team (Latest Contact Info) Description 09/23/2014 - 09/23/2014 11:59 PM EST Hospital Encounter [place] [address] Tessa Vázquez EXTRUDER OPERATOR MULT[employer]LE [facility] [place] [address] Discharge Disposition: Home Social History Tobacco Use [...] FILM LIBRARY STORAGE ONLY MR SPINE Routine 09/23/2014 12:00 AM EST documented in this encounter Results * Film Library- Storage Only MR Spine (09/23/2014 12:00 AM EST) Narrative [facility] - 07/19/2018 3:37 PM EDT This exam is for storage only and is auto-finalizing. Tessa Vázquez APRN IMG FILM LIBRARY ORD ERABLES [place], [place] documented in this encounter Visit Diagnoses Not on filedocumented in this encounter Care Teams Parts Processor Relationship Specialty Start Date End Date Park Rawls APRN [address] [place] [address] PCP - General 10/03/11 02/05/16 documented as of this encounter
--- OUTSIDE RECORDS SUMMARY | 2024-04-13 11:21 | XMS_ITS | Encounter Summary ---
[place] [address] Care Team Providers Care Radio Antenna Installer Name Role Phone Park Rawls PRESS TOOL MAKER Primary Care Provider [phone] Reason for Visit * Reason Comments Pre Procedure Call scheduled for Occipi lottie nerve block 03/09/12 with TW Encounter Details Date Type Department Care Team (Late st Contact Info) Description 03/01/2012 Telephone [place] [address] Geraldine Riley RN Pre Procedure Call (scheduled for Occipital nerve block 03/09/12 with TW) Social History Tobacco Use Types Packs/Day Years [...] encounter Miscellaneous Notes * Telephone Encounter - Geraldine Riley RN - 03/01/2012 5:17 PM EDT [facility] Procedure Information Phone Note Patient: Sahra Williamson [id number] Sahra Barnes Clay called today requesting information about her upcoming occipital nerve block procedure to be performed in the [facility] by Awilda Huang MD on 03/09/12. Patient???s questions regarding this procedure were answered to her satisfaction. Patient indicatedthat she understood information discussed. Patient thought she was having some kind of injection in her neck or back. After reviewing the referral from Dr. Portillo she was advised that the occipital block was for her headaches. She stated, Oh. It is for my migraines. Are they going to give me any medication for anxiety? Patient stated that she generally gets propofol when she has a procedure like the medial branch blocks. Ms. Williamson was advised that we do the occipital blocks in an exam room without medication. No Propofol is given in the [facility] for any procedure. Sahra Williamson knows how to contact the [facility] staff and understands that she may doso at any time should she have further questions or concerns. Geraldine Riley RN documented in this encounter Plan of Treatment Not on file documented as of this encounter Visit Diagnoses Not on filedocumented in this encounter Care Teams Radio Antenna Installer Relationship Specialty Start Date End Date Park Rawls APRN [address] [place] [address] PCP - General 10/03/11 02/05/16 documented as of this encounter
--- OUTSIDE RECORDS SUMMARY | 2024-04-13 11:21 | XMS_ITS | Encounter Summary ---
Author Organization [facility] [place] [address] Care Team Providers Care Thermodynamics Professor Name Role Phone CristoferPark reyes MYAH Primary Care Provider Encounter Details Date Type Department Care Team (Latest Contact Info) Description 04/25/2012 12:05 AM EDT - 04/25/2012 11:59 PM EDT Hospital Encounter [place] [address] Tessa Vázquez APR[place] [facility] [place] [address] Discharge Disposition: Home Social History Tobacco Use [...] LIBRARY STORAGE ONLY MR SPINE Routine 04/25/2012 12:05 AM EDT documented in this encounter Results * Film Library- Storage Only MR Spine (04/25/2012 12:05 AM EDT) Narrative [facility] - 07/19/2018 3:36 PM EDT This exam is for storage only and is auto-finalizing. Tessa Vázquez APRN IMSue FILM LIBRARY ORD ERABLES [place], [place] documented in this encounter Visit Diagnoses Not on filedocumented in this encounter Care Teams Thermodynamics Professor Relationship Specialty Start Date End Date Park Rawls APRN [address] [place] [address] PCP - General 10/03/11 02/05/16 documented as of this encounter
--- OUTSIDE RECORDS SUMMARY | 2024-04-13 11:21 | XMS_ITS | Encounter Summary ---
Author Organization [facility] Address [facility] [place] [address] Care Team Providers Care Nickel Plant Operator Name Role Phone Unavailable Primary Care Provider Unavailabl e Encounter Details Date Type Department Care Team (Late st Contact Info) Description 05/20/2016 Ancillary Procedure Radiology Library at [facility] [place] [address] Mayur Monroy III, MD [facility] [place] [address] Social History Tobacco Use Types Packs/Day Years [...] FILM LIBRARY STORAGE ONLY CT HEAD Routine 05/20/2016 12:00 AM EDT documented in this encounter Results * Film Library- Storage Only CT Head (05/20/2016 12:00 AM EDT) Narrative [facility] - 05/09/2020 11:28 AM EDT This exam is auto-finalizing. It's purpose is for storage only. Mayur Monroy III, MD IM FILM LIBRARY ORDERABLES Performing Organization Address City/State/[facility] Co de Phone Number [place], [place] documented in this encounter Visit Diagnoses Not on filedocumented in this encounter
--- OUTSIDE RECORDS SUMMARY | 2024-04-13 11:21 | XMS_ITS | Encounter Summary ---
Author Organization [facility] Address [facility] [place] [address] Care Team Providers Care Freelance Digital Project Manager Name Role Phone Park Rawls APRN Primary Care Provider [phone] Reason for Visit * Reason Onset Date Comments Other 03/08/2012 Encounter Details Date Type Department Care Team (Late st Contact Info) Description 03/08/2012 [place] [address] Vikash Portillo MD [facility] [place] [address] Other Social History Tobacco Use Types Packs/Day Years [...] encounter Miscellaneous Notes * Telephone Encounter - Leann Hough RN - 03/08/2012 4:30 PM EDT Return call to pt. Informed of tx planto be discusses at next follow up appt. with no changes at this time and recommendation to read book Dr. Portillo suggested. Pt verbalizes understanding of tx plan. * Telephone Encounter - Vikash Portillo MD - 03/08/2012 3:56 PM EDT No, she needs to come to a follow-up to discuss all this. In the meantime, get the book and read it.. The new plan will occur then. And I am recommending no narcotics. * Telephone Encounter - Leann Hough RN - 03/08/2012 2:40 PM EDT Call back to pt discussed Plan of care with pt. Pt states she will stop indomethacin. She has also moved her appt up with NF for March 30. Pt is asking for a medication to be called into the pharmacy now that she can take for her new headache starting now to her pharmacy ([facility] in [place]).Pt will be in doctors appt x 2 hours and will be unreachable. Pt requests new med be faxed to pharmacy and message of med and dosage left on her cell phone voice mail. Message to Dr. Portillo to follow up. * Telephone Encounter - Leann Hough RN - 03/08/2012 1:[address] to appt will call us back! * Telephone Encounter - Vikash Portillo MD - 03/08/2012 12:24 PM EDT First, let's be extremely clear about this. She should not be smoking,m so everything else she states about the medications is less important. Also, yes, people can take indomethacin with Toprol but the Toprol's dose may need to be adjusted. I gave her the indomethacin because she has very few choices left given her history. However, if it is causing her problems she should stop it. If she cannotget it, we could help her find it i suspect. Otherwise, she can just keep her follow-up. This was all explained to her in detail at her visit. Lastly, has she gotten and read the book I recommended (almost certainly not as these questions wouldbe answered for her if she read and understood it).?? Lastly, i'd love to hear the name of the person from the FDA she spoke to...please ask her for it. * Telephone Encounter - Leann Hough RN - 03/08/2012 10:56 AM EDT Pt called with concerns. She states that indomethacin has been discontinued in the [place]. She did not state specifically supp which she is taking. She also states that there are many adverse side affects she is having: loss of bowel control, black stools, confusion, increased pain, still minor headaches,. She states she called the FDA who warned her that people who smoke currently and have had strokes should not take this medication. She has a history of [place], stroke and indeed is currently smoking. Pt also states she was told that the medication reduces the positive affects of Topril which she is currently taking. Pt states she does not know why she was prescribed this medication with her medical history. Message forwarded to Dr. Portillo for follow up. Last appt 02/24 Next appt 04/26 * Telephone Encounter - Zaid Nguyen - 03/08/2012 10:32 AM EDT Patient stated that she has concerns regarding Indocin. Patient stated that she called the FDA regarding side affects of Indocin, and that people who are smokers and or have had strokes should not take Topril. Patient stated that she is experiencing the following symptoms: loss of bowel control, chest pain, black stools, confusion, increased pain, still having minor headaches. Patient stated thatshe does not understand why she was prescribed this medication with her medical history. Please call. documented in this encounter Plan of Treatment Not on file documented as of this encounter Visit Diagnoses Not on filedocumented in this encounter Care Teams Freelance Digital Project Manager Relationship Specialty Start Date End Date Park Rawls [place] [address] [place] [address] PCP - General 10/03/11 02/05/16 documented as of this encounter
--- OUTSIDE RECORDS SUMMARY | 2024-04-13 11:21 | XMS_ITS | Encounter Summary ---
Author Organization [facility] [place] [address] Care Team Providers Care Jewelry Model Maker Name Role Phone Park Rawls APRN Primary Care Provider Reason for Visit * Reason Onset Date Comments Prior Authorization 02/29/2012 INDOMETHACIN APPROVED THROUGH 09/25/2022 Encounter Details Date Type Department Care Team (Late st Contact Info) Description 02/29/2012 Telephone [place] [address] [facility] [place] [address] Prior Authorization (INDOMETHACIN APPROVED THROUGH 09/25/2022) Social History Tobacco Use Types Packs/Day Years [...] encounter Miscellaneous Notes * Telephone Encounter - Bonita Perera - 02/29/2012 8:41 AM EDT INDOMETHACIN APPROVED THROUGH 09/25/2022 documented in this encounter Plan of Treatment Not on file documented as of this encounter Visit Diagnoses Not on filedocumented in this encounter Care Teams Jewelry Model Maker Relationship Specialty Start Date End Date Park Rawls APRN [address] [place] [address] PCP - General 10/03/11 02/05/16 documented as of this encounter
--- OUTSIDE RECORDS SUMMARY | 2024-04-13 11:21 | XMS_ITS | Encounter Summary ---
Author Organization [facility] Address [facility] [place] [address] Care Team Providers Care Consumer Studies Professor Name Role Phone Park Rawls APRN Primary Care Provider [phone] Encounter Details Date Type Department Care Team (Late st Contact Info) Description 10/10/2014 Ancillary Procedure [place] [address] Mayur Monroy III, MD [facility] [place] [address] Social History Tobacco Use Types Packs/Day Years [...] FILM LIBRARY STORAGE ONLY ULTRASOUND STUDY Routine 10/10/2014 12:00 AM EST documented in this encounter Results * Film Library- Storage Only Ultrasound Study (10/10/2014 12:00 AM EST) Narrative [facility] - 05/09/2020 11:28 AM EDT This exam is auto-finalizing. It's purpose is for storage only. Mayur Monroy III, MD IMG FILM LIBRARY ORDERABLES [facility] [place], [place] documented in this encounter Visit Diagnoses Not on filedocumented in this encounter Care Teams Consumer Studies Professor Relationship Specialty Start Date End Date Park Rawls APRN [address] [place] [address] PCP - General 10/03/11 02/05/16 documented as of this encounter
--- OUTSIDE RECORDS SUMMARY | 2024-04-13 11:21 | XMS_ITS | Encounter Summary ---
Author Organization [facility] Address [facility] [place] [address] Care Team Providers Care Entry Level Marketing Representative Name Role Phone Park Rawls TESTER WASTE DISPOSAL LEAKAGE Primary Care Provider Reason for Visit * Reason Onset Date Comments Medication Refill 02/28/2012 Encounter Details Date Type Department Care Team (Late st Contact Info) Description 02/28/2012 Refill [place] [address] Vikash Portillo MD [facility] [place] [address] Social History Tobacco Use Types Packs/Day Years [...] encounter Miscellaneous Notes * Telephone Encounter - Norma Saxena LPN - 02/29/2012 8:58 AM EDT DEEPA approved and documented. * Telephone Encounter - Juliana Whitaker - 02/28/2012 11:58 AM EDT Patient returning Sahra's phone call. She's asked to have a phone call back. * Telephone Encounter - Norma Saxena LPN - 02/28/2012 11:51 AM EDT Spoke with pt's insurance, they are going to fax paperwork over for urgent request. * Telephone Encounter - Zaid Nguyen - 02/28/2012 10:47 AM EDT Patient stated that she is having pressure in her head. Patient stated that Medicare is denying Indocin. Patient stated that Medicare will approve the Indocin if the provider calls and requests and urgent appeal at . Please call patient to confirm that this has been done and to discuss symptoms. documented in this encounter Plan of Treatment Not on file documented as of this encounter Visit Diagnoses Not on filedocumented in this encounter Care Teams Entry Level Marketing Representative Relationship Specialty Start Date End Date Park Rawls APRN [address] [place] [address] PCP - General 10/03/11 02/05/16 documented as of this encounter
--- OUTSIDE RECORDS SUMMARY | 2024-04-13 11:21 | XMS_ITS | Encounter Summary ---
Author Organization [facility] Address [facility] [place] [address] Care Team Providers Care Neon Electrician Name Role Phone Kg Maldonado APRN Primary Care Provider [phone] Reason for Visit * Auth/Cert Specialty Diagnoses / Procedures Referred By Contac t Referred To Contact Diagnoses Unstable angina [place] ASCVD Procedures CARDIAC CATHETERIZATION Referral ID Status Reason Start Date Expiration Date Visits Re quested Visits Authorized [id number] 1 1 Encounter Details Date Type Department Care Team (Late st Contact Info) Description 02/05/2016 2:30 PM EDT - 02/05/2016 3:30 PM EDT Surgery [place] [id number] Jim Chen MD [facility] [place] [address] CARDIAC CATHETERIZATION Social History Tobacco Use Types [...] Sign Reading Time Taken Comments Blood Pressure 125/85 02/05/2016 4:45 PM EDT Pulse 55 02/05/2016 4:45 PM EDT Temperature 36.5 ??C (97.7 ??F) 02/05/2016 3:59 PM ED T Respiratory Rate 16 02/05/2016 3:59 PM EDT Oxygen Saturation 94% 02/05/2016 3:59 PM EDT Inhaled Oxygen Concentration - - Weight 84.9 kg (187 lb 2.7 oz) 02/05/2016 6:24 A M EDT Height 170.2 cm (5' 7) 02/04/2016 8:30 PM EDT Body Mass Index 29.32 02/04/2016 8:30 PM EDT documented in this encounter Discharge Summaries * Wendi Lucia V - 02/05/2016 4:31 PM EDT Patient Name: Sahra Williamson Patient Age: 50 y.o. Language: Congolese Race: White Ethnicity: Not nor Admit date: 02/04/2016 Discharge date and time: 02/05/2016 Attending Physician: Andry Clifton MD Discharge Physician: Andry Clifton MD Follow-up Recommendations for Providers: 1. Not applicable. (She said she will call Dr Chang's office) Inpatient Provider Contact Information: DEEPA MCMILLAN PAC Helisch, Armin, MD Helisch, Armin, MD [phone] Discharge Diagnoses (Hospital Problems) and Secondary Diagnoses (Chronic Problems): Active Hospital Problems Diagnosis ??? Unstable angina ??? Hypertension ??? Hyperlipidemia ??? History of seizure ??? Current smoker 35+yrs ??? Depression ??? 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 Active Non-Hospital Problems Diagnosis ??? Migraine ??? Cervical spondylosis ??? PRES (posterior reversible encephalopathy syndrome) Operations/Major Procedures: Procedure(s) with comments: CARDIAC CATHETERIZATION - Procedure: Coronary Angiography History of Presentation: Sahra Williamson is a 50 y.o. old female who is transferred to [facility] from [facility] for management of persistent chest pain. Patient went to ER at [facility] yesterday evening for evaluation of left sided chest pain that was non radiating and was persistent and did not have relief with Vicodin that she first tried. She didn't have chest pain prior to yesterday. She says had a treadmill stress test with Dr Chang about two years ago which was reportedly normal. Yesterday, patient was in her usual state of healthwhen she developed chest pain under the left breast after lunch. She had one leftover vicodin from the past which she tried without any relief. She then got onto internet and reviewed her symptoms and as it said that it could be heart attack, she went to ER. She didn't call EMS. She had ST depressions in anterior leads and was given aspirin and nitroglycerin and she became hypotensive with NTG. She was then given 100 mcg of IV fentanyl and was admitted overnight. She had an echocardiogram this morning that was normal and her case was discussed with Dr Chang. This morning she continued to have 5/[address] depressions improved but troponins remained negative. She was given full dose lovenox at 9:00 AM and was given 300 mg of Plavix and cardiology was consulted for transfer, for higher level of care. Patient says that over the last few weeks, she was under a lot of stress as one of her close friends in a plane crash and other is dying with terminal cancer and one of her sons was arrested forstealing a truck and other son was admitted to ICU for alcohol intoxication and with a combination of all the above, she has not been feeling well mentally. In addition, she is on seroquel and ativanfor anxiety. 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 She had fusion surgery in neck and had lumbar laminectomy and is not on any narcotics except lyrica for neuropathy. Recently, she was told that her CPK was high and EMIL was abnormal and was told to stop her pravastatin but that was only two days ago. She didn't take her pravastatin but denies any myalgias at this time. She had a screening colonoscopytwo months ago and was told that few polyps were sent for biopsy and they were pre-cancerous and that she needs a repeat scope in 5 years. Hospital Course: On admission to [facility], the patient had no complaints of chest pain or shortness of breath. Telemetry was attached which showed normal sinus rhythm throughout the admission. Chest Pain/ non obstructive CAD Given the patient's risk factors and presentation, subtle EKG changes, the patient was treated withheparin and loaded Plavix at the outside hospital. She was arranged for coronary angiography which showed moderate disease though not thought appropriate for intervention intitially. She had recurrent CP with other possible GI components and labs were done to rule out acute cholycysititis and pancreatitis. An echo from the outside hospital was reviewed. She was treated with metoprolol and opioids when here and she couldn't tolerate nitroglycerin as she reported headaches. She was to have a stress test tomorrow but she refused to stay. Follow up is planned with Dr Chang. Hyperlipidemia Lipid profile is as shown below. Patient has been on Pravastatin and while here was on atorvastatinbut patient refused to take it as she was told her EMIL and CPK were high and she shouldn't be on statins. Her CPK was fine here. Hypertension Her BP remained high and she was due to have renal dopplers done tomorrow. Smoking cessation was advised & discussed. Functional and Cognitive Status: At baseline Cognition intact Ambulatory Important Studies and Lab Data: Lab Results Component Value Date WBC 8.4 02/05/2016 RBC 4.35 02/05/2016 HGB 13.6 02/05/2016 HCT 39.9 02/05/2016 MCV 91.7 02/05/2016 MCH 31.3 02/05/2016 MCHC 34.1 02/05/2016 PLATELET 236 02/05/2016 RDWCV 13.4 02/05/2016 Lab Results Component Value Date SODIUM 139 02/04/2016 POTASSIUM 4.1 02/04/2016 CHLORIDE 102 02/04/2016 CO2 25 02/04/2016 BUN 13 02/04/2016 CREATININE 1.03 02/04/2016 GLUCOSE LVL 83 02/04/2016 Recent Labs 02/05/16 0331 02/04/16 2129 CK 121 131 TROPONINT <0.03 <0.03 Lab Results Component Value Date CHLPL 175 02/05/2016 HDL 34* 02/05/2016 CHOLHDL 5.1 02/05/2016 TRIG 124 02/05/2016 LDLCHOL 116* 02/05/2016 Studies: Echocardiogram: LVEF 65%, Mild TR, trace MR, ascending aorta 3.7 cm. (from outside) LHC/ angiography: Coronary Angiography:? Dominance: Right? Left Main? The left main was normal.? Left Anterior Descending? There was mild diffuse disease of the proximal segment of the left? anterior descending artery (LAD) and it was aneurysmal.?? The LAD was ? large.?? The mid segment of the LAD had a single discrete 50% ? stenosis.? Left Circumflex? There was mild diffuse disease of the proximal segment of the left? circumflex artery (LCX) and it was aneurysmal and tortuous.?? The LCX ? was large.? There was a 40% eccentric and tortuous diffuse stenosis of the? proximal segment of the second obtuse marginal branch (OM2) of the? LCX.?? The OM2 was large.? Right Coronary Artery? There was mild diffuse disease of the proximal segment of the right? coronary artery (RCA) and it was aneurysmal.?? The RCA was large.? The mid segment of the RCA had an eccentric single discrete 50%? stenosis.?? There also was a 40% eccentric single discrete stenosis? of the distal segment of the RCA.? Vascular Access:? Vascular Access Management:? Mechanical Compression of the right radial artery access site was? performed.? Conclusions:? * Two vessel coronary artery disease (LAD and RCA)? * Elevated left ventricular end diastolic pressure? Discharge Conditions/Prognosis: Pt signed out against medical advice. Discharge to: Home (AMA) Updated Allergies/ADRs: Allergies Allergen Reactions ??? Imitrex [Sumatriptan Succinate] ??? Amoxicillin Unknown pt unsure ??? Ampicillin Itching ??? Azithromycin Itching ??? Codeine Phosphate Itching ??? Sulfa (Sulfonamide Antibiotics) Itching Edema Immunizations Given this Hospitalization: There is no immunization history on file for this patient. Discharge Medications: Your Medications UNREVIEWED medications - Discuss With Your Provider Dose Details lamoTRIgine 100 mg Tab Commonly known as: LaMICtal Take 100 mg by mouth daily. 100 mg Refills: 0 LORazepam 1 mg Tab Commonly known as: ATIVAN Take 1 mg by mouth daily as needed. 1 mg Refills: 0 LYRICA 50 mg Cap Take 1 capsule by mouth daily. Generic drug: pregabalin 1 capsule Refills: 0 meTOPROLOL succinate 100 mg Tablet sr Commonly known as: TOPROL-XL Take 1 tablet by mouth daily. 1 tablet Refills: 0 pravastatin 20 mg Tab Commonly known as: PRAVACHOL Take 60 mg by mouth every evening. 60 mg Refills: 0 QUEtiapine 100 mg Tab Commonly known as: SEROquel Take 1 tablet by mouth nightly. 1 tablet Refills: 0 verapamil 180 mg C24p Commonly known as: VERELAN PM Take 1 capsule by mouth daily. 1 capsule Refills: 0 Smoking Status at Discharge: History Smoking status ??? Current Every Day Smoker -- 0.50 packs/day for 25 years ??? Types: Cigarettes Smokeless tobacco ??? Never Used Comment: avs information Instructions Given to Patient at Discharge: There are no Patient Instructions on file for this visit. General Instructions Cardiology Instructions Call your doctor if: Chest pain, dyspnea, pain or swelling in legs occurs. If you have non-emergent questions between now and the time of your follow up appointments: -During 8am-5pm Tuesday through Tuesday call [phone] to speak with a nurse in the cardiology clinic -All other times call [phone] and ask to speak to the lead handler regional sales coordinator. Return to work/ usual actvities: 1 week or as tolerated Driving: No driving for 48 hours after catheterization. Follow up Appointments: PCP: KG MALDONADO APRN ; [phone] . Cardiology; Dr Chang in [place], [place] [phone] Signed: THOMAS Harrington Pager [phone] DATE: 02/05/2016 Addendum: Part of the above notes edited. I talked to her about a stress test and then deciding on disposition but she didn't want to stay and signed out AMA. She signed the papers. She said she willcall Dr Chang and decide if she wants to do an outpatient stress test. I will route this note to Dr Chang and cath report is pasted above. Wendi Lucia MD 8:10 PM February 05, 2016 documented in this encounter Discharge Instructions * Discharge Instructions* Lashonda Estrada PA - 02/05/2016 7:53 AM EDT Cardiology Instructions Call your doctor if: Chest pain, dyspnea, pain or swelling in legs occurs. If you have non-emergent questions between now and the time of your follow up appointments: -During 8am-5pm Tuesday through Tuesday call [phone] to speak with a nurse in the cardiology clinic -All other times call [phone] and ask to speak to the lead handler regional sales coordinator. Return to work/ usual actvities: 1 week as tolerated Driving: No driving for 48 hours after catheterization. Follow up Appointments: PCP: KG MALDONADO APRN ; [phone] . Follow up Cardiology; Dr Chnag in [place], [place] . [phone] documented in this encounter Medications at Time [...] daily. 06/11/2016 documented as of this encounter Progress Notes * Yolanda Lerner RN - 02/05/2016 7:50 PM EDT 1900- MD Lucia in to speak with pt about risks of leaving AMA. Pt acknowledged risks with MD Lucia but still decided to leave AMA. Pt educated on appropriate cath site care, and importance of following up with PCP and local Foster Care Therapist. Pt verbalized the importance of following through on this. IV's and tele d/c'd. Pt signed AMA sheet- in pts chart. Pt ambulated off the floor for discharge to [facility] by private car. * Yolanda Lerner RN - 02/05/2016 7:03 PM EDT OUTCOME EVALUATION NOTE: OUTCOME SUMMARY: Pt had uneventful day. VSS, SR on tele. Pt had c/o CP relieved with 2 mg IV morphine. Pt cath'd- nonobstructive CAD. No intervention. Pt returned to room, and continued to c/o CP- BMX, Protonix, Tylenol and Tramadol all with no releif. Pt refused additional tramadol, Tylenol, and Lipitor stating Iwon't take any new medications until I discuss it with my doctor at home. Pt given 2 mg IV Morphine at 1816. Pt then ran at 1840 and informed this RN that she was leaving. Pt informed of the risks of leaving AMA. MD Lucia aware. Pt agreed to speak to MD before she left. Pt stated I have all the information I want from pathology laboratory technologist and I will talk about it with my doctor at home. My friend is coming to give me a ride home. PLAN MOVING FORWARD: ? Pt leaving AMA INDIVIDUALIZED FALL PREVENTION INTERVENTIONS: Patient-specific fall risk factors per assessment: [current deficits]: Unfamiliar environment Assistance [level of assistance required for transfers and ambulation]: Indep Supervision [direct monitoring required during toileting and ADLs]: Indep Surveillance [continuous indirect monitoring]: Indep Patient-specific fall prevention interventions for sensory deficits provided, if applicable: n/a CPG GOAL OUTCOME EVALUATION: * Andry Clifton MD - 02/05/2016 7:54 AM EDT Inpatient Cardiology Progress Note Patient Name: Sahra Williamson Service: IRON HANDLER / PA Responsible Attending: Andry Clifton MD Reason for continued hospitalization: Evaluation and management of CP Active Problems: Active Hospital Problems Diagnosis ??? Unstable angina ??? Hypertension ??? Hyperlipidemia ??? History of seizure ??? Current smoker 35+yrs ??? Depression ??? 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 Interval History: Persistent CP again today, treated with MS as NTG dropped BP per RNs Pt reports pain usually with rest, sedentary at baseline, walking is peak exercise +much social stress +lump in throat with swallowing water daily Recent normal C scope, never had UGI Review of Systems: General: Denies fever, chills, recent illness Cardiovascular: Denies palpitations, LE edema, Respiratory: +EDMOND worsening GI: Denies abdominal pain, bowel changes/ melena : no dysuria/ hematuria Meds: ??? meTOPROLOL 25 mg Oral Q6H VIANEY ??? nitroGLYcerin ??? lamoTRIgine 100 mg Oral Daily ??? pregabalin 50 mg Oral Daily ??? QUEtiapine 100 mg Oral Nightly ??? sodium chloride 0.9 % 5 mL Intravenous BID ??? aspirin 81 mg Oral Daily ??? atorvastatin 80 mg Oral QPM Continuous Infusions: ??? heparin 750 Units/hr (02/05/16 0520) Vital Signs: Last value Range last 24 hrs Temperature Temp: 36.9 ??C (98.4 ??F) Temp: [36.7 ??C (98.1 ??F)-36.9 ??C (98.4 ??F)] Heart Rate Heart Rate: 60 Heart Rate: [54-61] Blood Pressure BP: 109/77 mmHg BP: (91-121)/(59-81) Respiratory Rate Resp: 16 Resp: [16-18] SpO2 SpO2: 97 % SpO2: [91 %-97 %] Telemetry: sinus rhythm, HR 50-75 Patient Vitals for the past 168 hrs: Weight 02/05/16 0624 84.9 kg (187 lb 2.7 oz) 02/04/16 2030 85.3 kg (188 lb 0.8 oz) Physical Exam: General: NAD, AAOx3, appropriate, appears older than stated age HEENT: NC/AT, anicteric sclerae, PER, Neck: No JVD Lungs: clear without W/R/R CV: RRR, S1, S2, no M/R/G Abd: Nl BS, soft, NT, ND, obese Ext: early clubbing of nails; no Edema Vascular: 2+ radial, femoral, and intact distal pulses b/l R radial access site stable without hematoma, significant tenderness. Cap refill and sensation of Rhand intact. Neuro: Ambulatory per pt, MAEW Lab Comments: Recent Labs 02/05/16 0331 02/04/162128 WBC 8.4 8.6 HGB 13.6 13.6 HCT 39.9 39.6 PLATELET 236 238 Recent Labs 02/04/162128 INR 1.0 Recent Labs 02/04/162128 NA 139 K 4.1 CL 102 CO2 25 BUN 13 CREATININE 1.03 Recent Labs 02/04/162128 AST 17 ALT 18 ALKPHOS 84 BILITOT 0.5 BILIDIR 0.1 Recent Labs 02/04/162128 CALCIUM 9.0 MAGNESIUM 0.90 PHOS 2.9 Recent Labs 02/05/16 0331 02/04/16 2129 CK 121 131 TROPONINT <0.03 <0.03 Lab Results Component Value Date CHLPL 175 02/05/2016 TRIG 124 02/05/2016 LDLCHOL 116* 02/05/2016 Pertinent Radiographic/Diagnostic Results: outside hospital : Echocardiogram: LVEF 65%, Mild TR, trace MR, ascending aorta 3.7 cm. I have independently visualized the following studies: ECG: NSR with softTWI V3-4 yesterday , less prominent today ? Assessment/ Plan Ms Williamson is a 50 year old woman with h/o persistent chest pain that resolves only with morphine or fentanyl per report and had ECG changes without troponin elevation over the last 24 hours who is nowadmitted for further management. She is a hypertensive and heavy smoker and has family history of premature CAD. She was treated as ACS so far with IV heparin, plavix and aspirin. LHC today From [facility], knew Dr Chang remotely, did not see him this admit at outside hospital . 1. CP/ CAD LHC today with moderate disease in 3 vessels Recurrent pain today at rest, previously not responsive to SL NTG which argues against vasospasm- held off trial of Norvasc later today as BPs soft post LHC and sedation Consider nuclear stress test in am (ordered for now) if persistent pain and wish to reassess degreeif CAD in am Note - plavix not continued here as an inpatient on admit last night Considering also non cardiac CP Continue home beta-jaswinder Continue statin GI etiology of CP? lump in throat with swallowing water Never had EGD Normal G scope recently Trial of BMX today appears unhelpful so far Added PPI today LFTs normal today Added amylase, lipase Hypertension: - Continue metoprolol Change verapamil to Norvasc when possible for ?vasospasm Reports labile BPs at home Tried to get renal angio today- did not happen, will add renal doppler in am Hyperlipidemia: - Switched Pravastatin to Atorvastatin. Nicotine addiction: -nicotine patch Seizure prophylaxis from prior hemorrhagic CVA: - Continue Lamotrigine. Anxiety: - Continue ativan and Seroquel Neuropathy: - Continue pregabalin. THOMAS Harrington Pager [phone] 02/05/2016 Cardiology Attending Addendum I shared this visit with DEEPA Estrada and guided the medical decision- making. Coronary angiogram showed moderate 3VD. Patient complained of continued chest pain which did not appear to be anginal in nature. We planned for resting nuclear perfusion test (followed by stress test, if baseline images normal) but I just read that patient ended up leaving [facility] against medical advice. documented in this encounter H&P Notes * Wedni Lucia V - 02/04/2016 9:18 PM EDT Admission History and Physical Exam February 04, 2016 Name: Sahra Williamson Gender: female : 1965 Age: 50 y.o. Date of Admit: 02/04/2016 Attending Physician Andry Clifton MD Chief Complaint: Persistent left sided chest pain present at rest. Patient Active Problem List Diagnosis ??? Unstable angina ??? Migraine ??? Cervical spondylosis Overview Note: ??? PRES (posterior reversible encephalopathy syndrome) Overview Note: History of Presenting Illness: Sahra Williamson is a 50 y.o. old female who is transferred to [facility] from [facility] for management of persistent chest pain. Patient went to ER at [facility] yesterday evening for evaluation of left sided chest pain that was non radiating and was persistent and did not have relief with Vicodin that she first tried. She didn't have chest pain prior to yesterday. She says had a treadmill stress test with Dr Chang about two years ago which was reportedly normal. Yesterday, patient was in her usual state of healthwhen she developed chest pain under the left breast after lunch. She had one leftover vicodin from the past which she tried without any relief. She then got onto internet and reviewed her symptoms and as it said that it could be heart attack, she went to ER. She didn't call EMS. She had ST depressions in anterior leads and was given aspirin and nitroglycerin and she became hypotensive with NTG. She was then given 100 mcg of IV fentanyl and was admitted overnight. She had an echocardiogram this morning that was normal and her case was discussed with Dr Chang. This morning she continued to have 5/[address] her [address] depressions improved but troponins remained negative. She was given full dose lovenox at 9:00 AM and was given 300 mg of Plavix and cardiology was consulted for transfer, for higher level of care. Patient says that over the last few weeks, she was under a lot of stress as one of her close friends in a plane crash and other is dying with terminal cancer and one of her sons was arrested forstealing a truck and other son was admitted to ICU for alcohol intoxication and with a combination of all the above, she has not been feeling well mentally. In addition, she is on seroquel and ativanfor anxiety. 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 She had fusion surgery in neck and had lumbar laminectomy and is not on any narcotics except lyrica for neuropathy. Recently, she was told that her CPK was high and EMIL was abnormal and was told to stop her pravastatin but that was only two days ago. She didn't take her pravastatin but denies any myalgias at this time. She had a screening colonoscopytwo months ago and was told that few polyps were sent for biopsy and they were pre-cancerous and that she needs a repeat scope in 5 years. Review of Systems: General ROS: No fatigue or weakness. Psychological: No anxiety or depression, no mood swings. (handled with seroquel and ativan) Ophthalmic: No blurred vision or watery or red eyes. ENT: Negative for ear discharge or running nose or cold or throat swelling. Allergy: negative for - itchy/watery eyes Heme: Negative for-bleeding, bruising, fatigue, jaundice, night sweats Endocrine: negative for - polydipsia/polyuria/ heat intolerance Respiratory: As in HPI CVS: As in HPI GI: No abd pain, change in bowel habits, or black or bloody stools (colonoscopy recent, polyps) Genitourinary: No dysuria, trouble voiding, or hematuria MSK: positive for - joint pain, joint stiffness or joint swelling Neurological: No TIA or stroke symptoms Allergies:Imitrex; Amoxicillin; Ampicillin; Azithromycin; Codeine phosphate; and Sulfa (sulfonamideantibiotics) Home Medications: Prescriptions prior to admission Medication Sig Dispense Refill Last Dose ??? LORazepam (ATIVAN) 1 mg Tablet Take 1 mg by mouth daily as needed. 02/03/2016 at Unknown time ??? meTOPROLOL succinate (TOPROL-XL) 100 mg Tablet Sustained Release 24 hr Take 1 tablet by mouth daily. 02/04/2016 at Unknown time ??? pravastatin (PRAVACHOL) 20 mg Tablet Take 60 mg by mouth every evening. Past Week at Unknown time ??? LYRICA 50 mg Capsule Take 1 capsule by mouth daily. 02/03/2016 at Unknown time ??? QUEtiapine (SEROQUEL) 100 mg Tablet Take 1 tablet by mouth nightly. 02/03/2016 at Unknown time ??? verapamil (VERELAN PM) 180 mg Cap,24 hr Sust Release Pellets Take 1 capsule by mouth daily. 02/04/2016 at Unknown time ??? lamoTRIgine (LAMICTAL) 100 mg tablet Take 100 mg by mouth daily. 02/04/2016 at Unknown time Past Medical History Diagnosis Date ??? Seizures ??? Depression ??? HTN (hypertension) ??? 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 Migraine ??? Hyperlipidemia ??? Neuropathy Past Surgical History Procedure Laterality Date ??? Lumbar laminectomy ??? Cervical fusion ??? Ankle surgery Left ??? Shoulder surgery Right ??? Appendectomy ??? Hysterectomy Family History Problem Relation Age of Onset ??? Coronary Artery Disease Early Onset Father ??? Cerebrovascular Accident Mother History Social History ??? Marital Status: Spouse Name: N/A Number of Children: N/A ??? Years of Education: N/A Occupational History ??? Not on file. Social History Main Topics ??? Smoking status: Current Every Day Smoker -- 0.50 packs/day for 25 years Types: Cigarettes ??? Smokeless tobacco: Never Used Comment: avs information ??? Alcohol Use: No Comment: Was an alcoholic until a year ago and prior to that for over 17 years was a heavy alcoholic ??? Drug Use: Yes Special: Marijuana Comment: Occasional ??? Sexual Activity: Partners: Male Other Topics Concern ??? Not on file Social History Narrative Physical Exam: Filed Vitals: 02/04/162029 BP: 121/80 Pulse: 54 Temp: 36.7 ??C (98.1 ??F) Resp: 18 Gen/Constitutional: Alert, appears comfortable and older than stated age HEENT: MARCELLUS, EOMI, No conjunctival pallor or scleral icterus Cardiac/CVS: Regular S1 S2 No murmurs Pulm/Chest: Clear, No creps or ronchi. Abd/GI: No tenderness, not distended, soft, BS present, no organomegaly Musculoskeletal: No edema, Pulses palpable, no calf tenderness Neuro/LANDSCAPE TECHNICIAN: AAO x 3, No evident deficits Skin/Integumentary: No rash or ulcers Labs: Troponin: <0.06 x 3 BUN/Creatinine: 17/1.0 Hgb/Hct/Plt: 14/41/305 WBC: 12.7 Sodium/Potassium: 138/4.4 PT/INR: 9.9/1.0 Magnesium: 2.1 TSH: 4.9 ECG: NSR with T wave inversions in III and aVF here and had T wave inversions and flattening in V2-V3 yesterday and flattening today. Echocardiogram: LVEF 65%, Mild TR, trace MR, ascending aorta 3.7 cm. Assessment and Plan: Ms Williamson is a 50 year old woman with h/o persistent chest pain that resolves only with morphine or fentanyl and had ECG changes without troponin elevation over the last 24 hours who is now admitted for further management. She is a hypertensive and heavy smoker and has family history of premature CAD. She was treated as ACS so far with IV heparin, plavix and aspirin. Depending on the clinical course, stress test vs diagnostic cath to be decided. 1. Unstable Angina: - Despite multiple risk factors and persistent chest pain with ECG changes, her echo and troponins remained normal - She received full dose lovenox and 300 mg of Plavix already. Will continue with IV heparin. - Will keep her NPO and she consented for a diagnostic cath if it is required. - Pharmacological stress test vs cath to be decided depending on the clinical course - Continue Metoprolol succinate, aspirin and start 80 mg of Atorvastatin. - As she couldn't tolerate nitroglycerin and wasn't giving angina relief, will order prn morphine. 2. Hypertension: - Continue metoprolol and verapamil.(dose of verapamil to be confirmed between 120 and 180) 3. Hyperlipidemia: - Switch Pravastatin to Atorvastatin. 4. Nicotine addiction: - She thinks she can quit without any help. 5. 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 6. Anxiety: - Continue ativan and seroquel 7. Neuropathy: - Continue pregabalin. Signature: Wendi Lucia MD Date: February 04, 2016 Time: 9:18 PM Pager: [phone] documented in this encounter Miscellaneous Notes * Plan of Care - Angeles Araujo RN - 02/05/2016 4:53 AM EDT Problem: General Plan of Care Goal: Infection Control 02/05/16 0452 Coping/Psychosocial Response Interventions Counseling personal strengths integrated;relaxation techniques promoted Safety Interventions Isolation Precautions standard precautions maintained Infection Prevention hydration promoted;nutrition promoted;bronchial hygiene promoted;promote handwashing;rest/sleep promoted;environmental surveillance Comments: OUTCOME EVALUATION NOTE: OUTCOME SUMMARY: Assumed care of pt at 2300 from KOREY Amaral. VSS. No c/o pain since 2299, pt has been sleeping with no issues. Trops negative x2. Call dubose within reach. PLAN MOVING FORWARD: NPO since for cardiac cath v.s. Stress test INDIVIDUALIZED FALL PREVENTION INTERVENTIONS: Patient-specific fall risk factors per assessment: [current deficits]: IV pole, new admit Assistance [level of assistance required for transfers and ambulation]: SBA Supervision [direct monitoring required during toileting and ADLs]: Intermittent. Pt uses call bellappropriately Surveillance [continuous indirect monitoring]: Purposeful hourly rounding, telemetry Patient-specific fall prevention interventions for sensory deficits provided, if applicable: CPG GOAL OUTCOME EVALUATION: Ongoing * Plan of Care - Dixie Amaral RN - 02/04/2016 10:37 PM EDT Problem: General Plan of Care Goal: Plan of Care Review Outcome: Ongoing (Interventions Implemented as Appropriate) 02/04/16 2353 Plan of Care Review Plan of Care Outcome Status ongoing (interventions implemented as appropriate) Progress improving Coping/Psychosocial Response Interventions Plan of Care Reviewed with patient OUTCOME EVALUATION NOTE: OUTCOME SUMMARY: Patient is alert and oriented. VSS. NSR/SB on tele. Patient arrived at 2030 via ambulance with 5/10chest pain located in midsternum and radiates to left breast. Heparin gtt initiated. Pain not relieved with 3 SL nitro at OSH, drop in BP, pt got a headache. Given 2mg morphine IV. EKG shows T wave inversions. First trop negative. Consent signed for potential cath in the AM vs. Stress test. PLAN MOVING FORWARD: NPO for stress vs. cath INDIVIDUALIZED FALL PREVENTION INTERVENTIONS: Patient-specific fall risk factors per assessment: [current deficits]: Pain medications, IV pole, unfamiliar env Assistance [level of assistance required for transfers and ambulation]: SBA Supervision [direct monitoring required during toileting and ADLs]: Intermittent Surveillance [continuous indirect monitoring]: Purposeful hourly rounding Patient-specific fall prevention interventions for sensory deficits provided, if applicable: N/A CPG GOAL OUTCOME EVALUATION: Goal: Individualization and Mutuality Outcome: Ongoing (Interventions Implemented as Appropriate) Goal: Fall Prevention-Safe Patient Handling Outcome: Ongoing (Interventions Implemented as Appropriate) Goal: Infection Control Outcome: Ongoing (Interventions Implemented as Appropriate) Goal: Discharge Needs Assessment Outcome: Ongoing (Interventions Implemented as Appropriate) 02/04/16204602/04/162232 Discharge Needs Assessment Concerns to be Addressed -- no discharge needs identified Readmission Within the Last 30 Days -- no previous admission in last 30 days Equipment Needed After Discharge -- none Current Health Anticipated Changes Related to Illness -- none Self-Care Equipment Currently Used at Home -- none Living Environment Transportation Available family or friend will provide -- documented in this encounter Plan of Treatment Scheduled Orders Name Type Priority Associated Diagnoses Orde r Schedule EKG 12 Lead ECG Routine Chest pain, unspecified type One Time for 1 Occurrences starting 02/04/2016 until 02/04/2016 documented as of this encounter Procedures Procedure Name Priority Date/Time Associated Diagnosis Comments STOKER INSTALLATION MECHANIC SCAN 02/06/2016 12:00 AM EDT CARDIAC CATH SCAN 02/06/2016 12: 00 AM EDT TESTOSTERONE, TOTAL AND FREE Routine 02/05/2016 2:06 PM EDT ALDOSTERONE Routine 02/05/2016 2:06 PM EDT RENIN ACTIVITY Routine 02/05/2016 2:06 PM EDT DHEA Routine 02/05/2016 2:06 PM EDT CARDIAC CATHETERIZATION Routine 02/05/20 11:33 AM EDT EKG 12-LEAD STAT 02/05/2016 7:50 AM EDT Chest pain, unspecified type EKG 12-LEAD STAT 02/05/2016 6:24 AM EDT Chest pain, unspecified type NUCLEATED RED BLOOD CELLS Routine 02/05/2016 3:31 AM EDT HEMOGRAM Routine 02/05/2016 3:31 AM EDT DIFFERENTIAL, AUTOMATED Routine 02/05/20 16 3:31 AM EDT CARDIAC ENZYMES ([facility]) Routine 02/05/2016 3:31 AM EDT APTT STAT 02/05/2016 3:31 AM EDT CBC (WITH DIFF) Routine 02/05/2016 3:31 AM EDT LIPASE Routine 02/05/2016 3:31 AM EDT AMYLASE Routine 02/05/2016 3:31 AM EDT LIPID PANEL (REFLEX DIRECT LDL) Routine 02/05/2016 3:31 AM EDT HEMOGRAM Routine 02/04/2016 9:29 PM EDT DIFFERENTIAL, AUTOMATED Routine 02/04/20 16 9:29 PM EDT CARDIAC ENZYMES ([facility]) Routine 02/04/2016 9:29 PM EDT APTT Routine 02/04/2016 9:29 PM EDT SEDIMENTATION RATE Routine 02/04/2016 9: 29 PM EDT PROTHROMBIN TIME Routine 02/04/2016 9:29 PM EDT CBC (WITH DIFF) Routine 02/04/2016 9:29 PM EDT CRP, CARDIAC RISK ([facility] CRP) Routine 02/04/2016 9:29 PM EDT TSH Routine 02/04/2016 9:29 PM EDT PHOSPHORUS Routine 02/04/2016 9:29 PM EDT PRO-BRAIN NATRIURETIC PEPTIDE Routine 02/04/2016 9:29 PM EDT MAGNESIUM Routine 02/04/2016 9:29 PM EDT HEPATIC FUNCTION PANEL Routine 6 9:29 PM EDT BASIC METABOLIC PANEL (NON-FASTING) Routine 02/04/2016 9:29 PM EDT EKG 12-LEAD Routine 02/04/2016 8:37 PM EDT Chest pain, unspecified type documented in this encounter Results * SCAN DOC: CARDIAC CATH (02/06/2016 12:00 AM EDT) Anatomical Region Laterality Modality Other Scanning Provider MEDIA MGR SCAN EXT O RDR/RSLT * SCAN DOC: STOKER INSTALLATION MECHANIC (02/06/2016 12:00 AM EDT) Anatomical Region Laterality Modality Other Scanning Provider MEDIA MGR SCAN EXT O RDR/RSLT * Testosterone, total and free (02/05/2016 2:06 PM EDT) Testo Total 12 2 - 45 ng/dL [facility] Comment: For more information on this test, go to http://education.WeDemand/faq/ TotalTestosteroneLCMSMS Testo Free 1.5 0.1 - 6.4 pg/mL [facility] Comment: Test Performed by [facility] [employer] [facility], [address] [place] [address] Doroteo Paz M.D., Ph.D., Director of Laboratories , [facility] [id number] Blood specimen (specimen) 02/05/2016 2:06 PM EDT 02/05/2016 3:25 PM EDT Narrative Resulting Agency Comment Spec In Lab Andry Clifton MD CHEMISTRY ORDERABLES Performing Organization Address City/[facility] Co de Phone Number [facility] [place] [address] * DHEA (02/05/2016 2:06 PM EDT) DHEA 0.8 <6.0 ng/mL [facility] Comment: Test Performed by: [facility] [place] [address] [employer] Installer: Remington Lawton II, M.D., Ph.D. Blood specimen (specimen) 02/05/2016 2:06 PM EDT 02/05/2016 3:28 PM EDT Narrative Resulting Agency Comment Spec In Lab Andry Clifton MD CHEMISTRY ORDERABLES Performing Organization Address City/[facility] Co de Phone Number [facility] [place] [address] * Aldosterone (02/05/2016 2:06 PM EDT) Aldosterone <4.0 <=21 ng/dL [facility] Comment: ADDITIONAL INFORMATION Reference range for patients 11 years and older is based on upright A.M. collection from subjects without sodium restrictions. Test Performed by: [place] [address] [employer] Installer: Remington Lawton II, M.D., Ph.D. Blood specimen (specimen) 02/05/2016 2:06 PM EDT 02/05/2016 3:28 PM EDT Narrative Resulting Agency Comment Spec In Lab Andry Clifton MD CHEMISTRY ORDERABLES Performing Organization Address [facility] Co de Phone Number [facility] [place] [address] * Renin Activity (02/05/2016 2:06 PM EDT) Renin Activity 1.3 ng/ml/hr [facility] Comment: REFERENCE VALUE (Peripheral vein specimen) Na-deplete, upright: ??Mean: 5.9 ??Range: 2.9-10.8 Na-replete, upright: ??Mean: 1.0 ??Range: < or =0.6-3.0 ADDITIONAL INFORMATION Testing performed by Liquid Chromatography-Tandem Mass Spectrometry (LC-MS/MS). Test Performed by: [place] [address] [employer] Installer: Remington Lawton II, M.D., Ph.D. Blood specimen (specimen) 02/05/2016 2:06 PM EDT 02/05/2016 2:32 PM EDT Narrative Resulting Agency Comment Spec In Lab Andry Clifton MD CHEMISTRY ORDERABLES Performing Organization Address [facility] Co de Phone Number [facility] [place] [address] * CARDIAC CATHETERIZATION (02/05/2016 11:33 AM EDT) Anatomical Region Laterality Modality Other Narrative 02/05/2016 11:33 AM EDT ?[facility] ? Cardiac Catheterization/Intervention Report ? Patient Name: Clay, Sahra Barnes. ? Procedure Date: 02/05/2016 ? A #: [id number] ? Primary Physician: Chen, Jim J ? Case #: [id number] ? File Name: [id number] ? Catheterization Order Number: [id number] ? [facility] ? Final Report [place], [place] ? Patient Name: ? Sahra AFloresita Williamson ? ID#: ?[id number] ? : ?1965 ? Procedure Date: ? February 05, 2016 ? Case #: ? [id number] ? Room: ? 5 ? Case Physician: ? Jim Chen M.D. ? Start: ?09:55 ? Admission: ??02/04/2016 ? Referring ? Kg Maldonado M.D. ? Physicians: ?Sami Irvin M.D. ? Procedures: ?* Coronary Angiography ?* Left Heart Catheterization ? History ?Sahra Williamson is a 50 year old woman. She has hypertension and a family ?history of coronary artery disease. The patient has a history of smoking ?and is still smoking. She has hypercholesterolemia managed with lipid ?therapy. The patient has atypical symptoms for coronary artery disease, ?unstable angina, negative troponin and a history of chest pain. She has a ?remote cerebral vascular accident. The patient also has a history of an ?abnormal EKG. Prior to the initiation of this procedure, the patient was ?designated as ASA Class II. ? Patient Status at Catheterization: ?The patient presented with: symptom unlikely to be ischemic (w/i 14 ?days). [place] [employer] angina class was IV. This patient ?was on calcium edmar blockers prior to the procedure. No stress or ?imaging studies were performed prior to this procedure ? Technique: ?A 6 SLFr sheath was inserted in the right radial artery utilizing the ?Seldinger technique. The left coronary artery was injected utilizing a ?5Fr Anish Radial catheter. A 5Fr Anish Radial catheter was used to inject ?the right coronary artery. Left ventricular pressure was performed with a ?5Fr Anish Radial catheter. 5,000 units of heparin were administered. A ?total of 100cc of Omnipaque were opened, 50cc of Omnipaque were ?administered and 50cc of Omnipaque were wasted. Radiation: Fluoro time ?was 4.0 minutes, dose area product was 32,161 mGYcm2 and air kerma was ?827 mGY. ?The patient received the following medications prior to and during the ?procedure: Aspirin (any), Clopidogrel and Unfractionated Heparin (any). ? Hemodynamics: ?Left Heart Pressures ? Resting: ? Syst Diast ? EDP ?a ?v ? m ?Ao 131 ?? 78 ?99 ?LV 139 ? 20 ? Coronary Angiography: ?Dominance: Right ?Left Main ? The left main was normal. ?Left Anterior Descending ? There was mild diffuse disease of the proximal segment of the left ? anterior descending artery (LAD) and it was aneurysmal. ??The LAD was ? large. ??The mid segment of the LAD had a single discrete 50% ? stenosis. ?Left Circumflex ? There was mild diffuse disease of the proximal segment of the left ? circumflex artery (LCX) and it was aneurysmal and tortuous. ??The LCX ? was large. ? There was a 40% eccentric and tortuous diffuse stenosis of the ? proximal segment of the second obtuse marginal branch (OM2) of the ? LCX. ??The OM2 was large. ?Right Coronary Artery ? There was mild diffuse disease of the proximal segment of the right ? coronary artery (RCA) and it was aneurysmal. ??The RCA was large. ? The mid segment of the RCA had an eccentric single discrete 50% ? stenosis. ??There also was a 40% eccentric single discrete stenosis ? of the distal segment of the RCA. ? Vascular Access: ?Vascular Access Management: ? Mechanical Compression of the right radial artery access site was ? performed. ? Conclusions: ?* Two vessel coronary artery disease (LAD and RCA) ?* Elevated left ventricular end diastolic pressure ? Complications/Events: ?The patient had no complications during these procedures. ? Comments: ?Radial Access ?Access was obtained in the right/left radial artery using micropuncture ?technique after confirming a normal Allens test. ??A 0.035 Bobby-Torque wire ?was used to navigate the aortic arch vessels and to track a 5 Fr Anish ?catheter to the aortic root. ?? At the conclusion of the case, all sheaths ?and catheters were removed and a Vascular Band was applied for hemostasis ?over the radial access site. ??Neurovascular supply to the hand was intact ?at the conclusion of the case. ?The attending physician was present for the entire procedure. ?Dr. Jim Chen M.D. performed the coronary angiography and left ?heart catheterization. ? Jim Tamayo Chen, M.D. ? Electronically Signed by: Jim Tamayo Chen, M.D. ? Report Finalized: 02/05/2016 ??11:27 ? Procedure Note Jim Chen MD - 02/05/2016 [facility] Cardiac Catheterization/Intervention Report Patient Name: Sahra Williamson Procedure Date: 02/05/2016 A #: [id number] Primary Physician: Jim Chen Case #: [id number] File Name: [id number] Catheterization Order Number: [id number] [facility] FinalReport [place], [place] Patient Name: Sahra Williamson ID#:[id number] :1965 Procedure Date: February 05, 2016 Case #: [id number] Room: 5 Case Physician: Jim Chen M.D. Start: 09:55 Admission:02/04/2016 Referring Kg Maldonado M.D. Physicians: Sami Irvin M.D. Procedures: * Coronary Angiography * Left Heart Catheterization History Sahra Williamson is a 50 year old woman. She has hypertension and afamily history of coronary artery disease. The patient has a history ofsmoking and is still smoking. She has hypercholesterolemia managed withlipid therapy. The patient has atypical symptoms for coronary arterydisease, unstable angina, negative troponin and a history of chest pain. Shehas a remote cerebral vascular accident. The patient also has a history ofan abnormal EKG. Prior to the initiation of this procedure, the patientwas designated as ASA Class II. Patient Status at Catheterization: The patient presented with: symptom unlikely to be ischemic (w/i 14 days). [place] [employer] angina class was IV. Thispatient was on calcium edmar blockers prior to the procedure. No stress or imaging studies were performed prior to this procedure Technique: A 6 SLFr sheath was inserted in the right radial artery utilizingthe Seldinger technique. The left coronary artery was injected utilizinga 5Fr Anish Radial catheter. A 5Fr Anish Radial catheter was used toinject the right coronary artery. Left ventricular pressure was performedwith a 5Fr Anish Radial catheter. 5,000 units of heparin were administered.A total of 100cc of Omnipaque were opened, 50cc of Omnipaque were administered and 50cc of Omnipaque were wasted. Radiation: Fluorotime was 4.0 minutes, dose area product was 32,161 mGYcm2 and air kermawas 827 mGY. The patient received the following medications prior to and duringthe procedure: Aspirin (any), Clopidogrel and Unfractionated Heparin(any). Hemodynamics: Left Heart Pressures Resting: Syst Diast EDP a v m Ao 131 78 99 LV 139 20 Coronary Angiography: Dominance: Right Left Main The left main was normal. Left Anterior Descending There was mild diffuse disease of the proximal segment of theleft anterior descending artery (LAD) and it was aneurysmal. TheLAD was large. The mid segment of the LAD had a single discrete 50% stenosis. Left Circumflex There was mild diffuse disease of the proximal segment of theleft circumflex artery (LCX) and it was aneurysmal and tortuous.The LCX was large. There was a 40% eccentric and tortuous diffuse stenosis of the proximal segment of the second obtuse marginal branch (OM2) ofthe LCX. The OM2 was large. Right Coronary Artery There was mild diffuse disease of the proximal segment of theright coronary artery (RCA) and it was aneurysmal. The RCA waslarge. The mid segment of the RCA had an eccentric single discrete 50% stenosis. There also was a 40% eccentric single discretestenosis of the distal segment of the RCA. Vascular Access: Vascular Access Management: Mechanical Compression of the right radial artery access sitewas performed. Conclusions: * Two vessel coronary artery disease (LAD and RCA) * Elevated left ventricular end diastolic pressure Complications/Events: The patient had no complications during these procedures. Comments: Radial Access Access was obtained in the right/left radial artery usingmicropuncture technique after confirming a normal Allens test. A 0.035 Bobby-Torquewire was used to navigate the aortic arch vessels and to track a 5 FrJacky catheter to the aortic root. At the conclusion of the case, allsheaths and catheters were removed and a Vascular Band was applied forhemostasis over the radial access site. Neurovascular supply to the hand wasintact at the conclusion of the case. The attending physician was present for the entire procedure. Dr. Jim Chen M.D. performed the coronary angiography and left heart catheterization. Jim Chen M.D. Electronically Signed by: Jim Chen M.D. Report Finalized: 02/05/2016 11:27 Andry Clifton MD CARDIAC CATH ORDERAB LES * EKG 12 Lead (02/05/2016 7:50 AM EDT) Ventricular rate 62 BPM MUSE SYSTEM Atrial Rate 62 BPM MUSE SYSTEM P-R Interval 164 ms MUSE SYSTEM QRS Duration 84 ms MUSE SYSTEM Q-T Interval 440 ms MUSE SYSTEM QTC Calculated (Bezet) 446 ms MUSE SYSTEM Calculated P Uriah 24 degrees MUSE SYSTEM Calculated R Uriah -12 degrees MUSE SYSTEM Calculated T Uriah 0 degrees MUSE SYSTEM INTERPRETATION Normal sinus rhythm RSR' or QR pattern in V1 suggests right ventricular conduction delay Borderline ECG When compared with ECG of 05-FEB-2016 06:24, (unconfirmed) No significant change was found Confirmed by MD SALOMÓN, LAUREN ([id number]) on 02/05/2016 9:34:16 AM MUSE SYSTEM 02/05/2016 7:50 AM EDT 02/05/2016 9:34 AM EDT Wendi Ahumada MD ECG ORDERABLES MUSE SYSTEM * EKG 12 Lead (02/05/2016 6:24 AM EDT) Ventricular rate 61 BPM MUSE SYSTEM Atrial Rate 61 BPM MUSE SYSTEM P-R Interval 164 ms MUSE SYSTEM QRS Duration 86 ms MUSE SYSTEM Q-T Interval 452 ms MUSE SYSTEM QTC Calculated (Bezet) 455 ms MUSE SYSTEM Calculated P Uriah 31 degrees MUSE SYSTEM Calculated R Uriah -5 degrees MUSE SYSTEM Calculated T Uriah 7 degrees MUSE SYSTEM INTERPRETATION Normal sinus rhythm Nonspecific T wave abnormality Septal leads Borderline ECG When compared with ECG of 04-FEB-2016 20:37, No significant change was found Confirmed by MD SALOMÓN, OLEGARIOWARD (50) on 02/05/2016 9:33:57 AM MUSE SYSTEM 02/05/2016 6:24 AM EDT 02/05/2016 9:33 AM EDT Wendi Ahumada MD ECG ORDERABLES Performing Organization Address [facility] Co de Phone Number MUSE SYSTEM * Lipase (02/05/2016 3:31 AM EDT) Lipase 37 0 - 60 unit/L [facility] Blood specimen (specimen) Venous Draw / Unknown 02/05/2016 3:31 AM EDT 02/05/2016 3:54 AM EDT Narrative Resulting Agency Comment Spec In Lab Wendi Ahumada MD CHEMISTRY ORDERABLE S Performing Organization Address [facility] de Phone Number [facility] [place] [address] * Amylase (02/05/2016 3:31 AM EDT) Amylase 62 28 - 100 unit/L [facility] Blood specimen (specimen) Venous Draw / Unknown 02/05/2016 3:31 AM EDT 02/05/2016 3:54 AM EDT Narrative Resulting Agency Comment Spec In Lab Wendi Ahumada MD CHEMISTRY ORDERABLE S Performing Organization Address [facility] Co de Phone Number [facility] [place] [address] * Nucleated Red Blood Cells (02/05/2016 3:31 AM EDT) Pathologist [facility] nRBC % Auto 0.0 % [facility] nRBC Abs Auto 0.000 0.000 - 0.012 x10(3)/mcL [facility] Blood specimen (specimen) 02/05/2016 3:31 AM EDT 02/05/2016 3:51 AM EDT Narrative Resulting Agency Comment Spec In Lab Wendi Ahumada MD HEMATOLOGY ORDERABL ES Performing Organization Address [facility] de Phone Number [facility] [place] [address] * Cardiac Enzymes (02/05/2016 3:31 AM EDT) Troponin-T <0.03 <=0.03 ng/mL [facility] Comment: 0.03 ng/mL: Represents the 99th percentile upper reference limit for normals. >0.03 ng/mL: Elevated cardiac troponin T level indicative of myocardial damage. Diagnosis of acute, evolving or recent [place] requires a typical rise and gradual fall of cTnT with at least ONE of the following: a) Ischemic symptoms b) Development of pathologic Q waves on the ECG c) ECG changes indicative of eschemia (S-T segment elevation/depression) d) Coronary artery intervention Serial bloods should be obtained for testing on admission, at 6 to 9 hrs and again at 12 to 24 hrs if earlier samples are negative and the clinical index of suspicion is high. Reference: [Myocardial infarction redefined? a consensus document of the Joint Society of Cardiology/[place] [employer] Cardiology Committee for the redefinition of myocardial infarction. ??Journal of the [place] College of [employer]iology 2000; 36: 959-969] CK, Total 121 0 - 160 unit/L [facility] Blood specimen (specimen) Venous Draw / Unknown 02/05/2016 3:31 AM EDT 02/05/2016 3:51 AM EDT Narrative Resulting Agency Comment Spec In Lab Wendi Ahumada MD CHEMISTRY ORDERABLE S Performing Organization Address [facility]/ZIP Co de Phone Number [facility] [place] [place] [address] * (ABNORMAL) APTT (02/05/2016 3:31 AM EDT) PTT 150(Criti jewels) 25 - 35 sec [facility] Comment: Called by: SRINIVAS, Read back by: Felicia Valencia, Date/Time:02/05/16 04:17. The recommended therapeutic range for full dose, unfractionated heparin at [facility] is 80 ? 114 seconds. The use of the anti-Xa (heparin) level rather than the PTT is recommended for monitoring anticoagulation intensity in critically ill patients receiving unfractionated heparin by continuous IV infusion. Blood specimen (specimen) 02/05/2016 3:31 AM EDT 02/05/2016 3:51 AM EDT Narrative Resulting Agency Comment Spec In Lab Wendi Ahumada MD HEMATOLOGY ORDERABL ES [facility] [place] [address] * Differential, Automated (02/05/2016 3:31 AM EDT) Neutrophils % 45.6 % [facility] Neutr Abs (ANC) 3.83 1.50 - 6.30 x10(3)/[facility] Lymphocytes % 43.3 % [facility] Lymphocytes Abs 3.6 1.0 - 3.6 x10(3)/[facility] Monocytes % 7.9 % [facility] Monocyte Abs 0.7 0.2 - 1.0 x10(3)/[facility] Eosinophils % 2.5 % [facility] Eosinophils Abs 0.2 0.0 - 0.5 x10(3)/[facility] Basophils % 0.5 % [facility] Basophils Abs 0.0 0.0 - 0.2 x10(3)/[facility] Immature Gran % 0.20 % [facility] Comment: Immature granulocytes(IG's)percentage and absolute count will include metamyelocytes, myelocytes, and promyelocytes. Blood smears from CBCs yielding IG's will be scanned manually for concordance. If this scan disagrees with the automated IG or if promyelocytes are noted, a manual differential will be performed. Patsy Gran Abs 0.02 0.00 - 0.05 x10(3)/[facility] Blood specimen (specimen) 02/05/2016 3:31 AM EDT 02/05/2016 3:51 AM EDT Narrative Resulting Agency Comment Spec In Lab Wendi Ahumada MD HEMATOLOGY ORDERABL ES [facility] [place] [address] * Hemogram (02/05/2016 3:31 AM EDT) WBC 8.4 4.0 - 10.0 x10(3)/[facility] RBC 4.35 3.93 - 5.22 x10(6)/[facility] Hemoglobin 13.6 11.2 - 15.7 gm/dL [facility] Hematocrit 39.9 34.0 - 45.0 % [facility] MCV 91.7 79.0 - 94.0 fL [facility] MCH 31.3 26.6 - 32.2 pg [facility] MCHC 34.1 32.0 - 36.5 gm/dL [facility] Platelets 236 145 - 370 x10(3)/[facility] RDWSD 44.6 35.0 - 46.0 fL [facility] RDWCV 13.4 10.9 - 14.4 % [facility] MPV 10.4 9.0 - 12.0 fL [facility] Blood specimen (specimen) 02/05/2016 3:31 AM EDT 02/05/2016 3:51 AM EDT Narrative Resulting Agency Comment Spec In Lab Wendi Ahumada MD HEMATOLOGY ORDERABL ES [facility] [place] [address] * (ABNORMAL) Lipid panel (fasting) (02/05/2016 3:31 AM EDT) Chol, Total 175 <=199 mg/dL [facility] Comment: Recommendations of the NCEP Adult Treatment Panel for the following risk cutoff thresholds for the [place] population: Desirable: <200 mg/dL Borderline High: 200-239 mg/dL High: > or = 240 mg/dL Triglycerides 124 <=149 mg/dL [facility] Comment: Reference Range: Normal triglycerides: ??<150 mg/dL Borderline high: ??150-199 mg/dL High: ??200-499 mg/dL Very high: ??>yq=564 mg/dL LINDA 2001; 285(19):0913-4848 HDL 34(L) >=40 mg/dL [facility] Comment: Reference range: ??Low HDL: ?? < 40 mg/dL ??Normal: ?40-60 mg/dL ??Desirable: > 60 mg/dL LINDA 2001; 285(19):9760-7114 LDL Cholesterol 116(H) <=99 mg/dL [facility] Comment: Reference range: ?? Optimal: ?<100 mg/dL ?? Near Optimal/Above Optimal: ?? 100-129 mg/dL ?? Borderline high: ?130-159 mg/dL ?? High: ? 160-189 mg/dL ?? Very high: ?>ft=485 mg/dL LINDA 2001: 285(19):7127-8829 Chol/HDL Ratio 5.1 ratio [facility] Comment: A Cholesterol to HDL ratio below 4:1 is desirable. ??Studies suggest that increased CAD risk occurs at ratios above 5 for females and above 6 for men. ? [place] Heart Association ??(http://www.americanheart.org) ? Alyson Int Med, 1994; 121:641 ? AM J Med, 1998; 105(1A):48S Blood specimen (specimen) 02/05/2016 3:31 AM EDT 02/05/2016 3:51 AM EDT Narrative Resulting Agency Comment Spec In Lab Wendi Ahumada MD CHEMISTRY ORDERABLE S Performing Organization Address [facility] Phone Number [facility] [place] [address] * Sedimentation rate (02/04/2016 9:29 PM EDT) Sed Rate 14 0 - 20 mm/hr [facility] Blood specimen (specimen) Venous Draw / Unknown 02/04/2016 9:29 PM EDT 02/04/2016 9:43 PM EDT Narrative Resulting Agency Comment Spec In Lab Wendi Ahumada MD HEMATOLOGY ORDERABL ES Performing Organization Address [facility] Phone Number [facility] [place] [address] * High Sensitivity CRP (02/04/2016 9:29 PM EDT) CRP High Sens 9.2 mg/L [facility] Comment: Interpretations: 1) For accurate cardiac risk assessment, the average of 2 values >2 weeks apart should be obtained (ref 1&2). A value >10 mg/L indicates an inflammatory condition, concentrations >10 mg/L should not be used for cardiac risk assessment. ?<1.0 mg/L: low risk ?1.0 - 3.0 mg/L: moderate risk ?>3.0 mg/L: high risk groups for future cardiovascular events 2) The general reference range of apparently healthy individuals using this test is <5.0 mg/L (derived from the test package insert) References: 1. Bart NAM et. al. ??AHA/CDC Scientific Statement: Markers of Inflammation and Cardiovascular Disease. ??Circulation 2003; 107:499-511 2. Ridker PM. ??Clinical applications of C-reactive protein for cardiovascular disease detection and prevention. ??Circulation 2003; 107:363-369 Blood specimen (specimen) Venous Draw / Unknown 02/04/2016 9:29 PM EDT 02/04/2016 9:45 PM EDT Narrative Resulting Agency Comment Spec In Lab Wendi Ahumada MD CHEMISTRY ORDERABLE S Performing Organization Address [facility] de Phone Number [facility] [place] [address] * (ABNORMAL) APTT (02/04/2016 9:29 PM EDT) PTT 49(H) 25 - 35 sec [facility] Comment: The recommended therapeutic range for full dose, unfractionated heparin at [facility] is 80 ? 114 seconds. The use of the anti-Xa (heparin) level rather than the PTT is recommended for monitoring anticoagulation intensity in critically ill patients receiving unfractionated heparin by continuous IV infusion. Blood specimen (specimen) Venous Draw / Unknown 02/04/2016 9:29 PM EDT 02/04/2016 9:43 PM EDT Narrative Resulting Agency Comment Spec In Lab Wendi Ahumada MD HEMATOLOGY ORDERABL ES Performing Organization Address [facility] de Phone Number [facility] [place] [address] * Differential, Automated (02/04/2016 9:29 PM EDT) Neutrophils % 47.1 % [facility] Neutr Abs (ANC) 4.04 1.50 - 6.30 x10(3)/[facility] Lymphocytes % 41.4 % [facility] Lymphocytes Abs 3.6 1.0 - 3.6 x10(3)/[facility] Monocytes % 8.9 % [facility] Monocyte Abs 0.8 0.2 - 1.0 x10(3)/[facility] Eosinophils % 2.2 % [facility] Eosinophils Abs 0.2 0.0 - 0.5 x10(3)/[facility] Basophils % 0.3 % [facility] Basophils Abs 0.0 0.0 - 0.2 x10(3)/[facility] Immature Gran % 0.10 % [facility] Comment: Immature granulocytes(IG's)percentage and absolute count will include metamyelocytes, myelocytes, and promyelocytes. Blood smears from CBCs yielding IG's will be scanned manually for concordance. If this scan disagrees with the automated IG or if promyelocytes are noted, a manual differential will be performed. Patsy Gran Abs 0.01 0.00 - 0.05 x10(3)/[facility] Blood specimen (specimen) 02/04/2016 9:29 PM EDT 02/04/2016 9:43 PM EDT Narrative Resulting Agency Comment Spec In Lab Wendi Ahumada MD HEMATOLOGY ORDERABL ES [facility] [place] [address] * Hemogram (02/04/2016 9:29 PM EDT) WBC 8.6 4.0 - 10.0 x10(3)/[facility] RBC 4.32 3.93 - 5.22 x10(6)/[facility] Hemoglobin 13.6 11.2 - 15.7 gm/dL [facility] Hematocrit 39.6 34.0 - 45.0 % [facility] MCV 91.7 79.0 - 94.0 fL [facility] MCH 31.5 26.6 - 32.2 pg [facility] MCHC 34.3 32.0 - 36.5 gm/dL [facility] Platelets 238 145 - 370 x10(3)/mcL [facility] RDWSD 44.7 35.0 - 46.0 fL [facility] RDWCV 13.4 10.9 - 14.4 % [facility] MPV 10.3 9.0 - 12.0 fL [facility] Blood specimen (specimen) 02/04/2016 9:29 PM EDT 02/04/2016 9:43 PM EDT Narrative Resulting Agency Comment Spec In Lab Wendi Ahumada MD HEMATOLOGY ORDERABL ES [facility] [place] [address] * Cardiac Enzymes (02/04/2016 9:29 PM EDT) Troponin-T <0.03 <=0.03 ng/mL [facility] Comment: 0.03 ng/mL: Represents the 99th percentile upper reference limit for normals. >0.03 ng/mL: Elevated cardiac troponin T level indicative of myocardial damage. Diagnosis of acute, evolving or recent [place] requires a typical rise and gradual fall of cTnT with at least ONE of the following: a) Ischemic symptoms b) Development of pathologic Q waves on the ECG c) ECG changes indicative of eschemia (S-T segment elevation/depression) d) Coronary artery intervention Serial bloods should be obtained for testing on admission, at 6 to 9 hrs and again at 12 to 24 hrs if earlier samples are negative and the clinical index of suspicion is high. Reference: [Myocardial infarction redefined? a consensus document of the Joint Society of Cardiology/[place] [employer] Cardiology Committee for the redefinition of myocardial infarction. ??Journal of the [place] College of Cardiology 2000; 36: 959-969] CK, Total 131 0 - 160 unit/L [facility] Blood specimen (specimen) 02/04/2016 9:29 PM EDT 02/04/2016 9:43 PM EDT Narrative Resulting Agency Comment Spec In Lab Wendi Ahumada MD CHEMISTRY ORDERABLE S Performing Organization Address [facility] Co de Phone Number [facility] [place] [address] * Prothrombin Time (02/04/2016 9:29 PM EDT) PT 13.4 12.0 - 15.0 sec [facility] Comment: An INR <2.0 [...] may be appropriate depending on clinical circumstances. INR 1.0 0.9 - 1.1 [facility] Blood specimen (specimen) 02/04/2016 9:29 PM EDT 02/04/2016 9:43 PM EDT Narrative Resulting Agency Comment Spec In Lab Wendi Ahumada MD HEMATOLOGY ORDERABL ES Performing Organization Address [facility] Co de Phone Number [facility] [place] [address] * Hepatic Function Panel (02/04/2016 9:29 PM EDT) Total Protein 7.3 6.1 - 8.0 gm/dL [facility] Albumin 4.0 3.2 - 5.2 gm/dL [facility] AST 17 0 - 30 unit/L [facility] ALT 18 0 - 30 unit/L [facility] Alk Phos 84 40 - 104 unit/L [facility] Total Bilirubin 0.5 0.2 - 1.3 mg/dL [facility] Bili, Direct 0.1 0.0 - 0.3 mg/dL [facility] Blood specimen (specimen) 02/04/2016 9:29 PM EDT 02/04/2016 9:43 PM EDT Narrative Resulting Agency Comment Spec In Lab Wnedi Ahumada MD CHEMISTRY ORDERABLE S [facility] [place] [address] * pro-Brain Natriuretic Peptide (02/04/2016 9:29 PM EDT) ProBNP 52 <=125 pg/mL [facility] Blood specimen (specimen) 02/04/2016 9:29 PM EDT 02/04/2016 9:43 PM EDT Narrative Resulting Agency Comment Spec In Lab Wendi Ahumada MD CHEMISTRY ORDERABLE S Performing Organization Address City/[facility]/ZIP Co de Phone Number [facility] [place] [address] * TSH (02/04/2016 9:29 PM EDT) TSH 3.22 0.27 - 4.20 mcIU/mL [facility] Blood specimen (specimen) 02/04/2016 9:29 PM EDT 02/04/2016 9:43 PM EDT Narrative Resulting Agency Comment Spec In Lab Wendi Ahumada MD CHEMISTRY ORDERABLE S Performing Organization Address City/[facility]/ZIP Co de Phone Number [facility] [place] [address] * Phosphorus (02/04/2016 9:29 PM EDT) Phosphorus 2.9 2.5 - 4.5 mg/dL [facility] Blood specimen (specimen) 02/04/2016 9:29 PM EDT 02/04/2016 9:43 PM EDT Narrative Resulting Agency Comment Spec In Lab Wendi Ahumada MD CHEMISTRY ORDERABLE S [facility] [place] [address] * Magnesium (02/04/2016 9:29 PM EDT) Pathologist [facility] Magnesium 0.90 0.69 - 1.07 mmol/L [facility] Blood specimen (specimen) 02/04/2016 9:29 PM EDT 02/04/2016 9:43 PM EDT Narrative Resulting Agency Comment Spec In Lab Wendi Ahumada MD CHEMISTRY ORDERABLE S [facility] [place] [address] * (ABNORMAL) Basic Metabolic Panel (non-fasting) (02/04/2016 9:29 PM EDT) [facility] Glucose Lvl 83 65 - 199 mg/dL [facility] Comment:Diabetes: >=200 mg/d L plus symptoms BUN 13 8 - 18 mg/dL [facility] Creatinine 1.03 0.70 - 1.20 mg/dL [facility] Comment: Please note that the pediatric reference intervals supplied above were not validated at [facility]. Results from pediatric patients should be interpreted in conjunction to the patient's age, height and muscle mass. Sodium 139 135 - 145 mmol/L [facility] Potassium 4.1 3.5 - 5.0 mmol/L [facility] Comment: Please note: ??Patients with WBC >100,000 may have falsely elevated Potassium levels. ??For accurate Potassium quantification in these patients send serum separator tube (gold top) for subsequent determinations. ??Contact the Clinical Chemistry Laboratory if there are any questions. Chloride 102 98 - 107 mmol/L [facility] CO2 25 22 - 31 mmol/L [facility] Anion Gap 12 5 - 15 mmol/L [facility] Calcium 9.0 8.5 - 10.5 mg/dL [facility] Estimated GFR 56(L) >=60 [facility] Comment: This estimated GFR (eGFR) value was calculated using the MDRD equation which has been validated on patients between the ages of 18 and 70. The MDRD should not be used to assess kidney function in patients < 18 years of age or in patients with extremes of body mass, or in patients with acute kidney failure. This value should be multiplied by 1.2 for patients. For further information please copy and paste the following links into your internet browser. [email or web address] Blood specimen (specimen) 02/04/2016 9:29 PM EDT 02/04/2016 9:43 PM EDT Narrative Resulting Agency Comment Spec In Lab Wendi Ahumada MD CHEMISTRY ORDERABLE S Performing Organization Address [facility] Co de Phone Number [facility] [place] [address] * EKG 12 Lead (02/04/2016 8:37 PM EDT) Ventricular rate 53 BPM MUSE SYSTEM Atrial Rate 53 BPM MUSE SYSTEM P-R Interval 166 ms MUSE SYSTEM QRS Duration 86 ms MUSE SYSTEM Q-T Interval 474 ms MUSE SYSTEM QTC Calculated (Bezet) 444 ms MUSE SYSTEM Calculated P Uriah 28 degrees MUSE SYSTEM Calculated R Uriah -7 degrees MUSE SYSTEM Calculated T Uriah 2 degrees MUSE SYSTEM INTERPRETATION Sinus bradycardia Nonspecific ST and T wave abnormality Abnormal ECG When compared with ECG of 17-FEB-2011 07:59, Nonspecific T wave abnormality now evident in Anterior leads Confirmed by MD SALOMÓN, EDWARD ([id number]) on 02/05/2016 7:47:25 AM MUSE SYSTEM 02/04/2016 8:37 PM EDT 02/05/2016 7:47 AM EDT Andry Clifton MD ECG ORDERABLES Performing Organization Address City/[facility] Co de Phone Number MUSE SYSTEM documented in this encounter Visit Diagnoses Not on filedocumented in this encounter Admitting Diagnoses Diagnosis Unstable angina Intermediate coronary syndrome documented in this encounter Administered Medications Inactive Administered Medications - up to 3 most recent administrations Medication Order MAR Action Action Date Dose Rate Site fentaNYL 50 mcg/mL multi-dose injection ONCE PRN, Starting on Raissa 02/05/16 at 0952, Until Raissa 02/05/16 at 1143, Intra-Operative (Intra-Procedure), Routine Given 02/05/2016 10:01 AM EDT 25 mcg Given 02/05/2016 9:52 AM EDT 25 mcg heparin (porcine) injection ONCE PRN, Starting on Raissa 02/05/16 at 1023, Until Raissa 02/05/16 at 1143, Cath (Intra-Procedure), Routine Given 02/05/2016 10:23 AM EDT 5,000 Units midazolam (PF) (VERSED) 1 mg/mL multi-dose injection ONCE PRN, Starting on Raissa 02/05/16 at 0951, Until Raissa 02/05/16 at 1143, Cath (Intra-Procedure), Routine Given 02/05/2016 10:00 AM EDT 1 mg Given 02/05/2016 9:51 AM EDT 1 mg nitroGLYcerin 100 mcg/mL intracoronary dilution ONCE PRN, Starting on Raissa 02/05/16 at 1017, Until Raissa 02/05/16 at 1143, Cath (Intra-Procedure), Routine Given 02/05/2016 10:17 AM EDT 250 mcg verapamil (ISOPTIN) injection ONCE PRN, Starting on Raissa 02/05/16 at 1016, Until Raissa 02/05/16 at 1143, Administer over 2 Minutes, Cath (Intra-Procedure) Given 02/05/2016 10:16 AM EDT 2.5 mg documented in this encounter Active and Recently Administered Medications Times are shown in EDT. Scheduled Medication Order 02/03/2016 02/04/2016 02/05/2016 aspirin EC tablet 81 mg (CANCELED) 81 mg, Oral, DAILY, First dose on Tue02/05/16 at 0900, Until Discontinued, Routine 0823 (Given - Provid er: Yolanda Lerner RN)0941 (NOV Hold - Provider: Admin Adt - Reason: Transfer to a Procedural area)1306 (NOV Unhold - Provider: Admin Adt) atorvastatin (LIPITOR) tablet 80 mg (CANCELED) 80 mg, Oral, EVERY EVENING, First dose on Tue02/04/16 at 2200, Until Discontinued, Routine 2200 (Given - Provider: Dixie Amaral RN) 0941 (NOV Hold - Provider: Admin Adt - Reason: Transfer to a Procedural area)1306 (NOV Unhold - Provider: Admin Adt)1602 (Not Given - Provider: Yolanda Lerner RN - Reason: Patient/family refused) diaZEPam (VALIUM) tablet 5 mg (COMPLETED) 5 mg, Oral, WAITER/WAITRESS FORMAL, 1 dose, On Raissa 02/05/16 at 0830, Routine 0923 (Given - Provid er: Yolanda Lerner RN) diphenhydrAMINE (BENADRYL) capsule 50 mg (COMPLETED) 50 mg, Oral, WAITER/WAITRESS FORMAL, 1 dose, On Raissa 02/05/16 at 0830, Routine 0923 (Given - Provid er: Yolanda Lerner RN) diphenhydrAMINE/aluminum- magnesium hydroxide with simethicone/lidocaine (BMX) oral suspension (COMPLETED) 20 mL, Oral, ONCE, 1 dose, On Raissa 02/05/16 at 1445, Each 5mL contains equal parts of Maalox, Lidocaine, and Diphenhydramine, STAT 1433 (Given - Provid er: Shelley Lang RN) lamoTRIgine (LaMICtal) tablet 100 mg (CANCELED) 100 mg, Oral, DAILY, First dose on Raissa 02/05/16 at 0900, Until Discontinued, Routine 0823 (Given - Provid er: Yolanda Lerner RN)0941 (NOV Hold - Provider: Admin Adt - Reason: Transfer to a Procedural area)1306 (MAR Unhold - Provider: Admin Adt) meTOPROLOL tartrate (LOPRESSOR) tablet 25 mg (CANCELED) 25 mg, Oral, EVERY 6 HOURS SCHEDULED, First dose on Raissa 02/05/16 at 0815, Until Discontinued, Hold for SBP<90 and HR<50, Routine 0824 (Given - Provid er: Yolanda Lerner RN)0941 (NOV Hold - Provider: Admin Adt - Reason: Transfer to a Procedural area)1200 (Automatically Held - Provider: Admin Adt)1306 (NOV Unhold - Provider: Admin Adt) pantoprazole (PROTONIX) tablet 40 mg (CANCELED) 40 mg, Oral, DAILY, First dose on Raissa 02/05/16 at 1500, Until Discontinued, DO NOT CRUSH OR OPEN 1436 (Given - Provid er: Shelley Lang RN) pregabalin (LYRICA) capsule 50 mg (CANCELED) 50 mg, Oral, DAILY, First dose on Raissa 02/05/16 at 0900, Until Discontinued, Routine 0941 ([facility] Hold - Provider: Admin Adt - Reason: Transfer to a Procedural area)1306 ([facility] Unhold - Provider: Admin Adt)1601 (Given - Provider: Yolanda Lerner RN) QUEtiapine (SEROquel) tablet 100 mg (CANCELED) 100 mg, Oral, NIGHTLY, First dose on Tue02/04/16 at 2145, Until Discontinued, Routine 214 (Given - Provider: Dixie Amaral RN) 0941 ([facility] Hold - Provider: Admin Adt - Reason: Transfer to a Procedural area)1306 ([facility] Unhold - Provider: Admin Adt) sodium chloride 0.9 % flush 5 mL (CANCELED) 5 mL, Intravenous, 2 TIMES DAILY, First dose on Tue02/04/16 at 2145, Until Discontinued, Routine 214 (Given - Provider: Dixie Amaral RN) 0923 (Given - Provider: Yolanda Lerner RN)0941 ([facility] Hold - Provider: Admin Adt - Reason: Transfer to a Procedural area)1306 ([facility] Unhold - Provider: Admin Adt) sodium chloride 0.9 % flush 5 mL (CANCELED) 5 mL, Intravenous, EVERY 12 HOURS, First dose on Tue02/05/16 at 0815, Until Discontinued, Cath (Day of Procedure), Routine 0923 (Given - Provid er: Yolanda Lerner RN) Continuous Medication Order 02/03/2016 02/04/2016 02/05/2016 heparin 25,000 units in dextrose 5% 500 mL infusion (CANCELED) 350-7,000 Units/hr (7-140 mL/hr), Intravenous, CONTINUOUS, Starting on Tue02/04/16 at 2145, Until Raissa 02/05/16 at 1410, Patient Weight 85-89 kg Initial dose - 1,000 units/hr = 20 mL/hr aPTT less than 60 sec - increase by 350 units/hr = 7 mL/hr aPTT 60-79 sec- increase by 150 units/hr = 3 mL/hr aPTT 80-114 sec - no change aPTT 115-129 sec - decrease by 100 units/hr = 2 mL/hr aPTT 130-145 sec - stop infusion for 30 min then decrease by 150 units/hr = 3 mL/hr aPTT greater than 145 sec - stop infusion for 60 min then decrease by 250 units/hr = 5 mL/hr aPTT greater than 145 sec X 2 - call housekeeper head See [facility] dosing guidance for aPTT values less than 80 seconds under PRN medications Repeat aPTT 6 hours after initiating heparin. Then 6 hours after each dose adjustment. When 2 consecutive aPTT within target range of 80 - 114 seconds, change aPTT to once every 24 hours with A.M. labs while on heparin. RN to order required aPTT - Per Protocol, Routine 2138 (New Bag - Provider: Dixie Amaral RN) 0419 (Paused - Provider: Angeles Araujo RN - Comment: aPTT >145 sec)0520 (Restarted - Provider: Angeles Araujo RN)0928 (Stopped - Provider: Yolanda Lerner RN)0941 (NOV Hold - Provider: Admin Adt - Reason: Transfer to a Procedural area)1306 (MAR Unhold - Provider: Admin Adt) sodium chloride 0.9% infusion (CANCELED) 150 mL/hr, Intravenous, CONTINUOUS, Starting on Raissa 02/05/16 at 0815, Until Raissa 02/05/16 at 1145, Cath (Day of Procedure) 0822 (New Bag - Provider: Yolanda Lerner RN)0928 (Stopped - Provider: Yolanda Lerner RN) sodium chloride 0.9% infusion () 75 mL/hr, Intravenous, CONTINUOUS, Starting on Raissa 02/05/16 at 1215, Until Raissa 02/05/16 at 1614, Recovery (Recovery-Hospital Unit) 1230 (New Bag - Provider: Sindhu Casey RN) PRN Medication Order 02/03/2016 02/04/2016 02/05/2016 acetaminophen (TYLENOL) tablet 1,000 mg (CANCELED) 1,000 mg, Oral, EVERY 6 HOURS PRN, Starting on Raissa 02/05/16 at 1543, Until Raissa 02/05/16 at 2122, Pain, Maximum dose of acetaminophen is 4000 mg from all sources in 24 hours., Routine 1557 (Given - Provid er: Yolanda Lerner RN) fentaNYL 50 mcg/mL multi-dose injection (CANCELED) ONCE PRN, Starting on Raissa 02/05/16 at 0952, Until Raissa 02/05/16 at 1143, Intra-Operative (Intra-Procedure), Routine 0952 (Given - Provid er: Kam Marrero RN)1001 (Given - Provider: Janet Quiles RN) heparin (porcine) injection (CANCELED) ONCE PRN, Starting on Raissa 02/05/16 at 1023, Until Raissa 02/05/16 at 1143, Cath (Intra-Procedure), Routine 1023 (Given - Provid er: Janet Quiles RN) LORazepam (ATIVAN) tablet 1 mg (CANCELED) 1 mg, Oral, DAILY PRN, Starting on Tue02/04/16 at 2119, Until Raissa 02/05/16 at 2122, Anxiety, Routine 0941 (NOV Hold - Provider: Admin Adt - Reason: Transfer to a Procedural area)1306 (NOV Unhold - Provider: Admin Adt)1643 (Given - Provider: Yolanda Lerner RN) midazolam (PF) (VERSED) 1 mg/mL multi-dose injection (CANCELED) ONCE PRN, Starting on Raissa 02/05/16 at 0951, Until Raissa 02/05/16 at 1143, Cath (Intra-Procedure), Routine 0951 (Given - Provid er: Kam Marrero RN)1000 (Given - Provider: Janet Quiles RN) morphine 2 mg/mL carpuject 2 mg (CANCELED) 2 mg, Intravenous, EVERY 4 HOURS PRN, Starting on Tue02/04/16 at 2206, Until Raissa 02/05/16 at 0857, Pain, Routine 2218 (Given - Provider: Dixie Amaral, KOREY) 0617 (Given - Provider: Angeles Araujo RN) morphine 2 mg/mL carpuject 2 mg (CANCELED) 2 mg, Intravenous, EVERY 1 HOUR PRN, Starting on Raissa 02/05/16 at 0900, Until Raissa 02/05/16 at 1412, Pain, Routine 0912 (Given - Provid er: Yolanda Lerner RN)0941 (NOV Hold - Provider: Admin Adt - Reason: Transfer to a Procedural area)1306 (MAR Unhold - Provider: Admin Adt) morphine 2 mg/mL carpuject 2 mg (CANCELED) 2 mg, Intravenous, EVERY 4 HOURS PRN, Starting on Raissa 02/05/16 at 1804, Until Raissa 02/05/16 at 2122, Pain, Routine 1816 (Given - Provid er: Yolanda Lerner RN) nitroGLYcerin 100 mcg/mL intracoronary dilution (CANCELED) ONCE PRN, Starting on Raissa 02/05/16 at 1017, Until Raissa 02/05/16 at 1143, Cath (Intra-Procedure), Routine 1017 (Given - Provid er: Jim Chen MD) traMADol (ULTRAM) tablet 50-100 mg (CANCELED) 50-100 mg, Oral, EVERY 6 HOURS PRN, Starting on Raissa 02/05/16 at 1543, Until Raissa 02/05/16 at 2122, Pain, Give 50 mg for mild to moderate pain (1-6). Give 100 mg for severe pain (7-10) If pain not relived after 60 minutes by a dose of 50 mg then may repeat 50 mg ONCE. Maximum of 400 mg/day., Routine 1558 (Given - Provid er: Yolanda Lerner RN) verapamil (ISOPTIN) injection (CANCELED) ONCE PRN, Starting on Raissa 02/05/16 at 1016, Until Raissa 02/05/16 at 1143, Administer over 2 Minutes, Cath (Intra-Procedure) 1016 (Given - Provid er: Jim Chen MD) documented in this encounter Care Teams Neon Electrician Relationship Specialty Start Date End Date Kg Maldonado APRN [address] [place] [address] PCP - General 10/03/11 02/05/16 documented as of this encounter
--- OUTSIDE RECORDS SUMMARY | 2024-04-13 11:21 | XMS_ITS | Encounter Summary ---
[place] [address] Care Team Providers Care High Speed Warper Tender Name Role Phone Park Rawls APRN Primary Care Provider [phone] Reason for Visit * Reason Onset Date Comments Questions 02/28/2012 Encounter Details Date Type Department Care Team (Late st Contact Info) Description 02/28/2012 Telephone [place] [id number] Evon Hooker, RN Questions Social History Tobacco Use Types Packs/Day Years [...] encounter Miscellaneous Notes * Telephone Encounter - Evon Hooker RN - 02/28/2012 12:05 PM EDT [facility] Procedure Information Phone Note Patient: Sahra Barnes Clay [id number] Sahra Williamson called today requesting information about her upcoming occipital nerve block procedure to be performed in the [facility] Management [facility] by Awilda Huagn MD on 03/09/2012 Patient???s questions regarding this procedure were answered to her satisfaction. Patient indicatedthat she understood information discussed. Sahra Williamson knows how to contact the [facility] staff and understands that she may doso at any time should she have further questions or concerns. Evon Hooker RN documented in this encounter Plan of Treatment Not on file documented as of this encounter Visit Diagnoses Not on filedocumented in this encounter Care Teams High Speed Warper Tender Relationship Specialty Start Date End Date Park Rawls APRN [address] [place] [address] PCP - General 10/03/11 02/05/16 documented as of this encounter
--- OUTSIDE RECORDS SUMMARY | 2024-04-13 11:21 | XMS_ITS | Encounter Summary ---
Author Organization [facility] Address [facility] [place] [place] [address] Care Team Providers Care Change Release Manager Name Role Phone Park Rawls POULTRY HATCHERY MANAGER Primary Care Provider [phone] Reason for Visit * Reason Onset Date Comments Other 03/09/2012 Please call amina ent back to discuss a plan of care Encounter Details Date Type Department Care Team (Late st Contact Info) Description 03/09/2012 Telephone [place] [phone] Vikash Portillo MD [facility] [place] [address] Other (Please call patient back to discuss a plan of care) Social History Tobacco Use Types Packs/Day Years [...] Telephone Encounter - Leann Hough RN - 03/09/2012 4:28 PM EDT Call returned to pt. Identified book title Conquering Headache. Pt states she indeed did not receive info about or read this book. This nurse looked up book to purchase on line. It is $17.95. Pt states she cannot afford it. She states she was reading stroke book.Pt states she wants another medication prescribed as she can't take Indomethacin due to side affects. This nurse read Dr Crabtree recent note. Pt asking what am I to do until March 30. ED visit recommended if current regimen not working. Pt has scheduled visit March 29 * Telephone Encounter - Vikash Portillo MD - 03/09/2012 3:51 PM EDT Please re-read her my recommendations from yesterday. She chose not to accept my recommendatiions and is still on narcotics. That is her situation. I have nothing further to add. And she needs to get and read the book. * Telephone Encounter - Leann Hough RN - 03/09/2012 2:23 PM EDT Please see yesterdays note. Forwarded today,s message from pt for follow up. * Telephone Encounter - Mitali Quintero - 03/09/2012 2:12 PM EDT Patient called to report that migraines are absolutely unacceptable at this point since she discontinued medication as advised. Patient feels frustrated that she was told there is nothing more thancan be done for her, and would like to discuss a plan of care to prevent her from going into the ER. Please call patient back to address concerns. documented in this encounter Plan of Treatment Not on file documented as of this encounter Visit Diagnoses Not on filedocumented in this encounter Care Teams Change Release Manager Relationship Specialty Start Date End Date Park Rawls APRN [address] [place] [address] PCP - General 10/03/11 02/05/16 documented as of this encounter
--- OUTSIDE RECORDS SUMMARY | 2024-04-13 11:21 | XMS_ITS | Encounter Summary ---
Author Organization [facility] Address [facility] [place] [place] [address] Care Team Providers Care Counseling Specialist Name Role Phone Park Rawls APRN Primary Care Provider [phone] Reason for Visit * Reason Onset Date Comments Other 03/23/2012 patient would li ke to discuss hospital admission Encounter Details Date Type Department Care Team (Late st Contact Info) Description 03/23/2012 [place] [phone] Vikash Portillo MD [facility] [place] [address] Other (patient would like to discuss hospital admission) Social History Tobacco Use Types Packs/Day Years [...] encounter Miscellaneous Notes * Telephone Encounter - Vikash Portillo MD - 03/23/2012 4:28 PM EDT We had discussed this before and she refused my recommendations so now she will have to deal with her withdrawal elsewhere. I like to have a clear plan of action and proceed in a logical fashion, notreact to crises so she should in fact get her local providers to deal with the situation as it now stands. I made other suggestions and the chart clearly shows she wasn't going to accept my best advice. * Telephone Encounter - Leann Hough RN - 03/23/2012 4:17 PM EDT Pt called and has states that she can no longer get narcotics per her PCP and that she wants to be admitted for detox. Pt states she is out of meds. Discussed with pt need to go to the Emergency department where there are dependence counselors and medical staff so that can monitor her detox safely and provide support. Discussed with pt to bring all empty med bottles she has and to write down whatmeds and how much she has taken especially within this last 48 hrs and on a regular basis daily. Pthas agreed to plan. Pt states will be going to ED near her home. Forwarded to Dr. Portillo for review. * Telephone Encounter - Mitali Quintero - 03/23/2012 3:29 PM EDT Patient reports she is being taken off of opiates. Patient has discussed with Dr. Portillo being admitted to the hospital for a rapid detox. Patient is starting her withdrawal tomorrow, and would like to discuss possible admission with nurse. Please return her call. documented in this encounter Plan of Treatment Not on file documented as of this encounter Visit Diagnoses Not on filedocumented in this encounter Care Teams Counseling Specialist Relationship Specialty Start Date End Date Park Rawls APRN [address] [place] [address] PCP - General 10/03/11 02/05/16 documented as of this encounter
--- OUTSIDE RECORDS SUMMARY | 2024-04-13 11:21 | XMS_ITS | Encounter Summary ---
Author Organization [facility] Address [facility] [place] [address] Care Team Providers Care Corrections Caseworker Name Role Phone Kg Maldonado APRN Primary Care Provider Reason for Visit * Auth/Cert Specialty Diagnoses / Procedures Referred By Contac t Referred To Contact Diagnoses Unstable angina [place] ASCVD Procedures CARDIAC CATHETERIZATION Referral ID Status Reason Start Date Expiration Date Visits Re quested Visits Authorized [id number] 1 1 Encounter Details Date Type Department Care Team (Latest Contact Info) Description 02/04/2016 8:24 PM EDT - 02/05/2016 7:22 PM EDT Hospital Encounter Inter[place] [address] Andry Clifton MD [facility] [place] [address] Chest pain, unspecified type Discharge Disposition: Against Medical Advice Social History Tobacco Use Types Packs/Day Years [...] Sahra Williamson Patient Age: 50 y.o. Language: Anguillan Race: White Ethnicity: Not nor Admit date: 02/04/2016 Discharge date and time: 02/05/2016 Attending Physician: Andry Clifton MD Discharge Physician: Andry Clifton MD Follow-up Recommendations for Providers: 1. Not applicable. (She said she will call Dr Chang's office) Inpatient Provider Contact Information: DEEPA MCMILLAN, Andry Mesa MD Helisch, Armin, MD [phone] Discharge Diagnoses (Hospital Problems) and Secondary Diagnoses [...] y.o. old female who is transferred to [facility] from [facility] for management of persistent chest pain. Patient went to ER at [facility] yesterday evening for evaluation of left sided [...] 5 years. Hospital Course: On admission to [facility], the patient had no complaints of chest [...] appointments: -During 8am-5pm Tuesday through Tuesday call [phone] to speak with a nurse in the cardiology clinic -All other times call [phone] and ask to speak to the rad tech pest control service technician. Return to work/ usual actvities: 1 week or as tolerated Driving: No driving for 48 hours after catheterization. Follow up Appointments: PCP: KG MALDONADO APRN ; [phone] . Cardiology; Dr Chang in [place], [place] [phone] Signed: THOMAS Harrington Pager [phone] DATE: 02/05/2016 Addendum: Part of the above [...] appointments: -During 8am-5pm Tuesday through Tuesday call [phone] to speak with a nurse in the cardiology clinic -All other times call [phone] and ask to speak to the rad tech pest control service technician. Return to work/ usual actvities: 1 week as tolerated Driving: No driving for 48 hours after catheterization. Follow up Appointments: PCP: KG MALDONADO APRN ; [phone] . Follow up Cardiology; Dr Chang in [place], [place] . [phone] documented in this encounter Medications at Time [...] of following up with PCP and local Budget Consultant. Pt verbalized the importance of following through on this. IV's and tele d/c'd. Pt signed AMA sheet- in pts chart. Pt ambulated off the floor for discharge to [facility] by private car. * Yolanda Lerner RN [...] informed of the risks of leaving AMA. Lingam aware. Pt agreed to speak to MD before she left. Pt stated I have all the information I want from clinical laboratory assistant and I will talk about it with [...] Progress Note Patient Name: Sahra Williamson Service: MANAGER HOME / PA Responsible Attending: Andry Clifton MD [...] 0.90 PHOS 2.9 Recent Labs 02/05/16 0331 02/04/162128 CK 121 131 TROPONINT <0.03 <0.03 Lab [...] heparin, plavix and aspirin. LHC today From [facility], knew Dr Chang remotely, did not [...] Neuropathy: - Continue pregabalin. THOMAS Harrington Pager [phone] 02/05/2016 Cardiology Attending Addendum I shared this visit with DEEPA Estrada and guided the medical decision- making. Coronary angiogram showed moderate 3VD. Patient complained of continued chest pain which did not appear to be anginal in nature. We planned for resting nuclear perfusion test (followed by stress test, if baseline images normal) but I just read that patient ended up leaving [facility] against medical advice. documented in this encounter H&P Notes * Wendi Lucia V - 02/04/2016 9:18 PM EDT [...] y.o. old female who is transferred to [facility] from [facility] for management of persistent chest pain. Patient went to ER at [facility] yesterday evening for evaluation of left sided [...] No edema, Pulses palpable, no calf tenderness Neuro/SELF PAY SPECIALIST: AAO x 3, No evident deficits Skin/Integumentary: [...] February 04, 2016 Time: 9:18 PM Pager: [phone] documented in this encounter Miscellaneous Notes * [...] KOREY Amaral. VSS. No c/o pain since 2300, pt has been sleeping with no issues. Trops negative x2. Call dubose within reach. PLAN MOVING FORWARD: NPO since [facility] for cardiac cath v.s. Stress test INDIVIDUALIZED [...] Outcome: Ongoing (Interventions Implemented as Appropriate) 02/04/16 9050 Plan of Care Review Plan of Care Outcome Status ongoing (interventions implemented as appropriate) Progress improving Coping/Psychosocial Response Interventions Plan of Care Reviewed with patient OUTCOME EVALUATION NOTE: OUTCOME SUMMARY: Patient is alert and oriented. VSS. NSR/SB on tele. Patient arrived at 2029 via ambulance with 5/10chest pain located in [...] Procedure Name Priority Date/Time Associated Diagnosis Comments DIAMOND CLEANER SCAN 02/06/2016 12:00 AM EDT CARDIAC CATH [...] 02/05/20 16 3:31 AM EDT CARDIAC ENZYMES ([facility]) Routine 02/05/2016 3:31 AM EDT APTT STAT 02/05/2016 3:31 AM EDT CBC (WITH DIFF) Routine 02/05/2016 3:31 AM EDT LIPASE Routine 02/05/2016 3:31 AM EDT AMYLASE Routine 02/05/2016 3:31 AM EDT LIPID PANEL (REFLEX DIRECT LDL) Routine 02/05/2016 3:31 AM EDT HEMOGRAM Routine 02/04/2016 9:29 PM EDT DIFFERENTIAL, AUTOMATED Routine 02/04/20 16 9:29 PM EDT CARDIAC ENZYMES ([facility]) Routine 02/04/2016 9:29 PM EDT APTT Routine [...] SCAN EXT O RDR/RSLT * SCAN DOC: DIAMOND CLEANER (02/06/2016 12:00 AM EDT) Anatomical Region Laterality Modality Other Scanning Provider MEDIA MGR SCAN EXT O RDR/RSLT * Testosterone, total and free (02/05/2016 2:06 PM EDT) Testo Total 12 2 - 45 ng/dL [facility] Comment: For more information on this test, go to http://education.Carepeutics/faq/ TotalTestosteroneLCMSMS Testo Free 1.5 0.1 - 6.4 pg/mL [facility] Comment: Test Performed by Lalo Kumar, [facility], [address] [place] [address] Doroteo Paz M.D., Ph.D., Director of Laboratories , [facility] [id number] Blood specimen (specimen) 02/05/2016 2:06 PM EDT 02/05/2016 3:25 PM EDT Narrative Resulting Agency Comment Spec In Lab Andry Clifton MD CHEMISTRY ORDERABLES Performing Organization Address City/[facility]/ZIP Co de Phone Number [facility] [place] [address] * DHEA (02/05/2016 2:06 PM EDT) Pathologist [facility] DHEA 0.8 <6.0 ng/mL [facility] Comment: Test Performed by: [facility] [place] [address] Blower Feeder Dyed Raw Stock: Remington Lawton II, M.D., Ph.D. Blood specimen (specimen) 02/05/2016 2:06 PM EDT 02/05/2016 3:28 PM EDT Narrative Resulting Agency Comment Spec In Lab Andry Clifton MD CHEMISTRY ORDERABLES Performing Organization Address City/[facility]/ZIP Co de Phone Number [facility] [place] [address] * Aldosterone (02/05/2016 2:06 PM EDT) Aldosterone <4.0 <=21 ng/dL [facility] Comment: ADDITIONAL INFORMATION Reference range for patients 11 years and older is based on upright A.M. collection from subjects without sodium restrictions. Test Performed by: [facility] [place] [address] Blower Feeder Dyed Raw Stock: Remington Lawton II, M.D., Ph.D. Blood specimen (specimen) 02/05/2016 2:06 PM EDT 02/05/2016 3:28 PM EDT Narrative Resulting Agency Comment Spec In Lab Andry Clifton MD CHEMISTRY ORDERABLES Performing Organization Address [facility] de Phone Number [facility] [place] [address] * Renin Activity (02/05/2016 2:06 PM EDT) Renin Activity 1.3 ng/ml/hr [facility] Comment: REFERENCE VALUE (Peripheral vein specimen) Na-deplete, upright: ??Mean: 5.9 ??Range: 2.9-10.8 Na-replete, upright: ??Mean: 1.0 ??Range: < or =0.6-3.0 ADDITIONAL INFORMATION Testing performed by Liquid Chromatography-Tandem Mass Spectrometry (LC-MS/MS). Test Performed by: [place] [address] Blower Feeder Dyed Raw Stock: Remington Lawton II, M.D., Ph.D. Blood specimen (specimen) 02/05/2016 2:06 PM EDT 02/05/2016 2:32 PM EDT Narrative Resulting Agency Comment Spec In Lab Andry Clifton MD CHEMISTRY ORDERABLES Performing Organization Address [facility] Co de Phone Number [facility] [place] [address] * CARDIAC CATHETERIZATION (02/05/2016 11:33 AM EDT) Anatomical Region Laterality Modality Other Narrative 02/05/2016 11:33 AM EDT ?[facility] ? Cardiac Catheterization/Intervention Report ? Patient Name: Sahra Williamson. ? Procedure Date: 02/05/2016 ? A #: [id number] ? Primary Physician: Chen, Jim J ? Case #: [id number] ? File Name: [id number] ? Catheterization Order Number: [id number] ? [facility] ? Final Report [place], [place] ? Patient Name: ? Sahra Williamson ? ID#: ?[id number] ? : ?1965 ? Procedure Date: ? February 05, 2016 ? Case #: ? [id number] ? Room: ? 5 ? Case Physician: ? Jim Cehn M.D. ? Start: ?09:55 ? Admission: ??02/04/2016 [...] unlikely to be ischemic (w/i 14 ?days). [employer] angina class was IV. This [...] angiography and left ?heart catheterization. ? Jim Chen, M.D. ? Electronically Signed by: Jim Chen, M.D. ? Report Finalized: 02/05/2016 ??11:27 ? Procedure Note Jim Chen MD - 02/05/2016 [facility] Cardiac Catheterization/Intervention Report Patient Name: Sahra Williamson Procedure Date: 02/05/2016 A #: [id number] Primary Physician: Jim Chne Case #: [id number] File Name: [id number] Catheterization Order Number: [id number] [facility] FinalReport [place], [place] Patient Name: Sahra Williamson ID#:[id number] :1965 Procedure Date: February 05, 2016 Case [...] unlikely to be ischemic (w/i 14 days). [employer] angina class was IV. Thispatient [...] (Bezet) 446 ms MUSE SYSTEM Calculated P [place] 24 degrees MUSE SYSTEM Calculated R [place] -12 degrees MUSE SYSTEM Calculated T [place] 0 degrees MUSE SYSTEM INTERPRETATION Normal sinus rhythm RSR' or QR pattern in V1 suggests right ventricular conduction delay Borderline ECG When compared with ECG of 05-FEB-2016 06:24, (unconfirmed) No significant change was found Confirmed by MD SALOMÓN, EDWARD ([id number]) on 02/05/2016 9:34:16 AM MUSE SYSTEM [...] (Bezet) 455 ms MUSE SYSTEM Calculated P [place] 31 degrees MUSE SYSTEM Calculated R [place] -5 degrees MUSE SYSTEM Calculated T [place] 7 degrees MUSE SYSTEM INTERPRETATION Normal sinus rhythm Nonspecific T wave abnormality Septal leads Borderline ECG When compared with ECG of 04-FEB-2016 20:37, No significant change was found Confirmed by MD SALOMÓN, LAUREN (50) on 02/05/2016 9:33:57 AM MUSE SYSTEM 02/05/2016 6:24 AM EDT 02/05/2016 9:33 AM EDT Wendi Ahumada MD ECG ORDERABLES Performing Organization Address [place]/[facility]/ZIP Co de Phone Number MUSE SYSTEM * Lipase (02/05/2016 3:31 AM EDT) Pathologist [facility] Lipase 37 0 - 60 unit/L [facility] Blood specimen (specimen) Venous Draw / Unknown 02/05/2016 3:31 AM EDT 02/05/2016 3:54 AM EDT Narrative Resulting Agency Comment Spec In Lab Wendi Ahumada MD CHEMISTRY ORDERABLE S Performing Organization Address [place]/[facility] Co de Phone Number [facility] [place] [address] * Amylase (02/05/2016 3:31 AM EDT) Pathologist [facility] Amylase 62 28 - 100 unit/L [facility] Blood specimen (specimen) Venous Draw / Unknown 02/05/2016 3:31 AM EDT 02/05/2016 3:54 AM EDT Narrative Resulting Agency Comment Spec In Lab Wendi Ahumada MD CHEMISTRY ORDERABLE S Performing Organization Address [place]/[facility] Co de Phone Number [facility] [place] [address] * Nucleated Red Blood Cells (02/05/2016 3:31 AM EDT) Pathologist [facility] nRBC % Auto 0.0 % [facility] nRBC Abs Auto 0.000 0.000 - 0.012 x10(3)/mcL [facility] Blood specimen (specimen) 02/05/2016 3:31 AM EDT 02/05/2016 3:51 AM EDT Narrative Resulting Agency Comment Spec In Lab Wendi Ahumada MD HEMATOLOGY ORDERABL ES Performing Organization Address [place]/[facility] de Phone Number [facility] [place] [address] * Cardiac Enzymes (02/05/2016 3:31 AM EDT) [facility] Troponin-T <0.03 <=0.03 ng/mL [facility] Comment: 0.03 ng/mL: Represents the 99th percentile upper reference limit for normals. >0.03 ng/mL: Elevated cardiac troponin T level indicative of myocardial damage. Diagnosis of acute, evolving or recent PR requires a typical rise and gradual fall [...] consensus document of the Joint Society of Cardiology/[place] College of Cardiology Committee for the redefinition of myocardial infarction. ??Journal of the [place] College of Cardiology 2000; 36: 959-969] CK, Total 121 0 - 160 unit/L [facility] Blood specimen (specimen) Venous Draw / Unknown 02/05/2016 3:31 AM EDT 02/05/2016 3:51 AM EDT Narrative Resulting Agency Comment Spec In Lab Wendi Ahumada MD CHEMISTRY ORDERABLE S Performing Organization Address [place]/[facility] Co de Phone Number [facility] [place] [address] * (ABNORMAL) APTT (02/05/2016 3:31 AM EDT) PTT 150(Criti jewels) 25 - 35 sec [facility] Comment: Called by: [email or web address], Read back by: Felicia Valencia, Date/Time:02/05/16 04:17. The recommended therapeutic range for full dose, unfractionated heparin at [facility] is 80 ? 114 seconds. The use of the anti-Xa (heparin) level rather than the PTT is recommended for monitoring anticoagulation intensity in critically ill patients receiving unfractionated heparin by continuous IV infusion. Blood specimen (specimen) 02/05/2016 3:31 AM EDT 02/05/2016 3:51 AM EDT Narrative Resulting Agency Comment Spec In Lab Wendi Ahumada MD HEMATOLOGY ORDERABL ES [facility] [place] [address] * Differential, Automated (02/05/2016 3:31 AM EDT) Pathologist [facility] Neutrophils % 45.6 % [facility] Neutr Abs (ANC) 3.83 1.50 - 6.30 x10(3)/[facility] Lymphocytes % 43.3 % [facility] Lymphocytes Abs 3.6 1.0 - 3.6 x10(3)/[facility] Monocytes % 7.9 % [facility] Monocyte Abs 0.7 0.2 - 1.0 x10(3)/[facility] Eosinophils % 2.5 % [facility] Eosinophils Abs 0.2 0.0 - 0.5 x10(3)/[facility] Basophils % 0.5 % [facility] Basophils Abs 0.0 0.0 - 0.2 x10(3)/[facility] Immature Gran % 0.20 % [facility] Comment: Immature granulocytes(IG's)percentage and absolute count will include metamyelocytes, myelocytes, and promyelocytes. Blood smears from CBCs yielding IG's will be scanned manually for concordance. If this scan disagrees with the automated IG or if promyelocytes are noted, a manual differential will be performed. Patsy Gran Abs 0.02 0.00 - 0.05 x10(3)/[facility] Blood specimen (specimen) 02/05/2016 3:31 AM EDT 02/05/2016 3:51 AM EDT Narrative Resulting Agency Comment Spec In Lab Wendi Ahumada MD HEMATOLOGY ORDERABL ES [facility] [place] [address] * Hemogram (02/05/2016 3:31 AM EDT) WBC 8.4 4.0 - 10.0 x10(3)/[facility] RBC 4.35 3.93 - 5.22 x10(6)/[facility] Hemoglobin 13.6 11.2 - 15.7 gm/dL [facility] Hematocrit 39.9 34.0 - 45.0 % [facility] MCV 91.7 79.0 - 94.0 fL [facility] MCH 31.3 26.6 - 32.2 pg [facility] MCHC 34.1 32.0 - 36.5 gm/dL [facility] Platelets 236 145 - 370 x10(3)/[facility] RDWSD 44.6 35.0 - 46.0 fL [facility] RDWCV 13.4 10.9 - 14.4 % [facility] MPV 10.4 9.0 - 12.0 fL [facility] Blood specimen (specimen) 02/05/2016 3:31 AM EDT 02/05/2016 3:51 AM EDT Narrative Resulting Agency Comment Spec In Lab Wendi Ahumada MD HEMATOLOGY ORDERABL ES [facility] [place] [address] * (ABNORMAL) Lipid panel (fasting) (02/05/2016 3:31 AM EDT) Chol, Total 175 <=199 mg/dL [facility] Comment: Recommendations of the NCEP Adult Treatment Panel for the following risk cutoff thresholds for the [place] population: Desirable: <200 mg/dL Borderline High: 200-239 mg/dL High: > or = 240 mg/dL Triglycerides 124 <=149 mg/dL [facility] Comment: Reference Range: Normal triglycerides: ??<150 mg/dL Borderline high: ??150-199 mg/dL High: ??200-499 mg/dL Very high: ??>be=290 mg/dL LINDA 2001; 285(19):7344-9033 HDL 34(L) >=40 mg/dL [facility] Comment: Reference range: ??Low HDL: ?? < 40 mg/dL ??Normal: ?40-60 mg/dL ??Desirable: > 60 mg/dL LINDA 2001; 285(19):5362-2968 LDL Cholesterol 116(H) <=99 mg/dL [facility] Comment: Reference range: ?? Optimal: ?<100 mg/dL ?? Near Optimal/Above Optimal: ?? 100-129 mg/dL ?? Borderline high: ?130-159 mg/dL ?? High: ? 160-189 mg/dL ?? Very high: ?>mr=466 mg/dL LINDA 2001: 285(19):4368-5714 Chol/HDL Ratio 5.1 ratio [facility] Comment: A Cholesterol to HDL ratio below 4:1 is desirable. ??Studies suggest that increased CAD risk occurs at ratios above 5 for females and above 6 for men. ? [place] Heart Association ??(http://www.americanheart.org) ? Alyson Int Med, 1994; 121:641 ? AM J Med, 1998; 105(1A):48S Blood specimen (specimen) 02/05/2016 3:31 AM EDT 02/05/2016 3:51 AM EDT Narrative Resulting Agency Comment Spec In Lab Wendi Ahumada MD CHEMISTRY ORDERABLE S Performing Organization Address [facility] Co de Phone Number [facility] [place] [address] * Sedimentation rate (02/04/2016 9:29 PM EDT) Sed Rate 14 0 - 20 mm/hr [facility] Blood specimen (specimen) Venous Draw / Unknown 02/04/2016 9:29 PM EDT 02/04/2016 9:43 PM EDT Narrative Resulting Agency Comment Spec In Lab Wendi Ahumada MD HEMATOLOGY ORDERABL ES Performing Organization Address [facility] Phone Number [facility] [place] [address] * High Sensitivity CRP (02/04/2016 9:29 PM EDT) CRP High Sens 9.2 mg/L [facility] Comment: Interpretations: 1) For accurate cardiac [...] MD CHEMISTRY ORDERABLE S Performing Organization Address [place]/[facility] Co de Phone Number [facility] [place] [address] * (ABNORMAL) APTT (02/04/2016 9:29 PM EDT) PTT 49(H) 25 - 35 sec [facility] Comment: The recommended therapeutic range for full dose, unfractionated heparin at [facility] is 80 ? 114 seconds. The use [...] MD HEMATOLOGY ORDERABL ES Performing Organization Address [place]/[facility] Co de Phone Number [facility] [place] [address] * Differential, Automated (02/04/2016 9:29 PM EDT) Neutrophils % 47.1 % [facility] Neutr Abs (ANC) 4.04 1.50 - 6.30 x10(3)/[facility] Lymphocytes % 41.4 % [facility] Lymphocytes Abs 3.6 1.0 - 3.6 x10(3)/[facility] Monocytes % 8.9 % [facility] Monocyte Abs 0.8 0.2 - 1.0 x10(3)/[facility] Eosinophils % 2.2 % [facility] Eosinophils Abs 0.2 0.0 - 0.5 x10(3)/[facility] Basophils % 0.3 % [facility] Basophils Abs 0.0 0.0 - 0.2 x10(3)/[facility] Immature Gran % 0.10 % [facility] Comment: Immature granulocytes(IG's)percentage and absolute count will include metamyelocytes, myelocytes, and promyelocytes. Blood smears from CBCs yielding IG's will be scanned manually for concordance. If this scan disagrees with the automated IG or if promyelocytes are noted, a manual differential will be performed. Patsy Gran Abs 0.01 0.00 - 0.05 x10(3)/[facility] Blood specimen (specimen) 02/04/2016 9:29 PM EDT 02/04/2016 9:43 PM EDT Narrative Resulting Agency Comment Spec In Lab Wendi Ahumada MD HEMATOLOGY ORDERABL ES [facility] [place] [address] * Hemogram (02/04/2016 9:29 PM EDT) WBC 8.6 4.0 - 10.0 x10(3)/[facility] RBC 4.32 3.93 - 5.22 x10(6)/[facility] Hemoglobin 13.6 11.2 - 15.7 gm/dL [facility] Hematocrit 39.6 34.0 - 45.0 % [facility] MCV 91.7 79.0 - 94.0 fL [facility] MCH 31.5 26.6 - 32.2 pg [facility] MCHC 34.3 32.0 - 36.5 gm/dL [facility] Platelets 238 145 - 370 x10(3)/mcL [facility] RDWSD 44.7 35.0 - 46.0 fL [facility] RDWCV 13.4 10.9 - 14.4 % [facility] MPV 10.3 9.0 - 12.0 fL [facility] Blood specimen (specimen) 02/04/2016 9:29 PM EDT 02/04/2016 9:43 PM EDT Narrative Resulting Agency Comment Spec In Lab Wendi Ahumada MD HEMATOLOGY ORDERABL ES [facility] [place] [address] * Cardiac Enzymes (02/04/2016 9:29 PM EDT) Troponin-T <0.03 <=0.03 ng/mL [facility] Comment: 0.03 ng/mL: Represents the 99th percentile upper reference limit for normals. >0.03 ng/mL: Elevated cardiac troponin T level indicative of myocardial damage. Diagnosis of acute, evolving or recent PR requires a typical rise and gradual fall [...] consensus document of the Joint Society of Cardiology/[place] College of Cardiology Committee for the redefinition of myocardial infarction. ??Journal of the [place] College of Cardiology 2000; 36: 959-969] CK, Total 131 0 - 160 unit/L [facility] Blood specimen (specimen) 02/04/2016 9:29 PM EDT 02/04/2016 9:43 PM EDT Narrative Resulting Agency Comment Spec In Lab Wendi Ahumada MD CHEMISTRY ORDERABLE S Performing Organization Address [place]/[facility]/ZIP Co de Phone Number [facility] [place] [address] * Prothrombin Time (02/04/2016 9:29 PM EDT) PT 13.4 12.0 - 15.0 sec [facility] Comment: An INR <2.0 indicates [...] clinical circumstances. INR 1.0 0.9 - 1.1 [facility] Blood specimen (specimen) 02/04/2016 9:29 PM EDT 02/04/2016 9:43 PM EDT Narrative Resulting Agency Comment Spec In Lab Wendi Ahumada MD HEMATOLOGY ORDERABL ES Performing Organization Address [place]/[facility] Co de Phone Number [facility] [place] [address] * Hepatic Function Panel (02/04/2016 9:29 PM EDT) Total Protein 7.3 6.1 - 8.0 gm/dL [facility] Albumin 4.0 3.2 - 5.2 gm/dL [facility] AST 17 0 - 30 unit/L [facility] ALT 18 0 - 30 unit/L [facility] Alk Phos 84 40 - 104 unit/L [facility] Total Bilirubin 0.5 0.2 - 1.3 mg/dL [facility] Bili, Direct 0.1 0.0 - 0.3 mg/dL [facility] Blood specimen (specimen) 02/04/2016 9:29 PM EDT 02/04/2016 9:43 PM EDT Narrative Resulting Agency Comment Spec In Lab Wendi Ahumada MD CHEMISTRY ORDERABLE S [facility] [place] [address] * pro-Brain Natriuretic Peptide (02/04/2016 9:29 PM EDT) ProBNP 52 <=125 pg/mL [facility] Blood specimen (specimen) 02/04/2016 9:29 PM EDT 02/04/2016 9:43 PM EDT Narrative Resulting Agency Comment Spec In Lab Wendi Ahumada MD CHEMISTRY ORDERABLE S Performing Organization Address City/[facility]/ZIP Co de Phone Number [facility] [place] [address] * TSH (02/04/2016 9:29 PM EDT) TSH 3.22 0.27 - 4.20 mcIU/mL [facility] Blood specimen (specimen) 02/04/2016 9:29 PM EDT 02/04/2016 9:43 PM EDT Narrative Resulting Agency Comment Spec In Lab Wendi Ahumada MD CHEMISTRY ORDERABLE S Performing Organization Address City/[facility]/ZIP Co de Phone Number [facility] [place] [address] * Phosphorus (02/04/2016 9:29 PM EDT) Phosphorus 2.9 2.5 - 4.5 mg/dL [facility] Blood specimen (specimen) 02/04/2016 9:29 PM EDT 02/04/2016 9:43 PM EDT Narrative Resulting Agency Comment Spec In Lab Wendi Ahumada MD CHEMISTRY ORDERABLE S [facility] [place] [address] * Magnesium (02/04/2016 9:29 PM EDT) Magnesium 0.90 0.69 - 1.07 mmol/L [facility] Blood specimen (specimen) 02/04/2016 9:29 PM EDT 02/04/2016 9:43 PM EDT Narrative Resulting Agency Comment Spec In Lab Wendi Ahumada MD CHEMISTRY ORDERABLE S [facility] [place] [address] * (ABNORMAL) Basic Metabolic Panel (non-fasting) (02/04/2016 9:29 PM EDT) Pathologist [facility] Glucose Lvl 83 65 - 199 mg/dL [facility] Comment:Diabetes: >=200 mg/d L plus symptoms BUN 13 8 - 18 mg/dL [facility] Creatinine 1.03 0.70 - 1.20 mg/dL [facility] Comment: Please note that the pediatric reference intervals supplied above were not validated at [facility]. Results from pediatric patients should be interpreted in conjunction to the patient's age, height and muscle mass. Sodium 139 135 - 145 mmol/L [facility] Potassium 4.1 3.5 - 5.0 mmol/L [facility] Comment: Please note: ??Patients with WBC >100,000 may have falsely elevated Potassium levels. ??For accurate Potassium quantification in these patients send serum separator tube (gold top) for subsequent determinations. ??Contact the Clinical Chemistry Laboratory if there are any questions. Chloride 102 98 - 107 mmol/L [facility] CO2 25 22 - 31 mmol/L [facility] Anion Gap 12 5 - 15 mmol/L [facility] Calcium 9.0 8.5 - 10.5 mg/dL [facility] Estimated GFR 56(L) >=60 [facility] Comment: This estimated GFR (eGFR) value [...] the following links into your internet browser. [email or web address] Blood specimen (specimen) 02/04/2016 9:29 PM EDT 02/04/2016 9:43 PM EDT Narrative Resulting Agency Comment Spec In Lab Wendi Ahumada MD CHEMISTRY ORDERABLE S Performing Organization Address [place]/[facility] Co de Phone Number [facility] [place] [address] * EKG 12 Lead (02/04/2016 8:37 PM EDT) Ventricular rate 53 BPM MUSE SYSTEM Atrial Rate 53 BPM MUSE SYSTEM P-R Interval 166 ms MUSE SYSTEM QRS Duration 86 ms MUSE SYSTEM Q-T Interval 474 ms MUSE SYSTEM QTC Calculated (Bezet) 444 ms MUSE SYSTEM Calculated P [place] 28 degrees MUSE SYSTEM Calculated R [place] -7 degrees MUSE SYSTEM Calculated T [place] 2 degrees MUSE SYSTEM INTERPRETATION Sinus bradycardia Nonspecific ST and T wave abnormality Abnormal ECG When compared with ECG of 17-FEB-2011 07:59, Nonspecific T wave abnormality now evident in Anterior leads Confirmed by MD SALOMÓN, [email or web address] ([id number]) on 02/05/2016 7:47:25 AM MUSE SYSTEM 02/04/2016 8:37 PM EDT 02/05/2016 7:47 AM EDT Andry Clifton MD ECG ORDERABLES Performing Organization Address [place]/[facility] Co de Phone Number MUSE SYSTEM documented in this encounter Visit Diagnoses Diagnosis Chest pain, unspecified type Unstable angina Intermediate coronary syndrome Hypertension Unspecified essential hypertension Hyperlipidemia Other and unspecified hyperlipidemia History of seizure Current smoker Tobacco use disorder Depression Depressive disorder, not elsewhere classified 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 Chronic kidney disease, Stage II (mild) documented in this encounter Admitting Diagnoses Diagnosis Unstable angina Intermediate coronary syndrome documented in this encounter Administered Medications Inactive Administered Medications - up to 3 most recent administrations Medication Order MAR Action Action Date Dose Rate Site acetaminophen (TYLENOL) tablet 1,000 mg 1,000 mg, Oral, EVERY 6 HOURS PRN, Starting on Tue02/05/16 at 1543, Until Tue02/05/16 at 2122, Pain, Maximum dose of acetaminophen is 4000 mg from all sources in 24 hours., Routine Given 02/05/2016 3:57 PM EDT 1,000 mg aspirin EC tablet 81 mg 81 mg, Oral, DAILY, First dose on Tue02/05/16 at 0900, Until Discontinued, Routine Given 02/05/2016 8:23 AM EDT 81 mg atorvastatin (LIPITOR) tablet 80 mg 80 mg, Oral, EVERY EVENING, First dose on Tue02/04/16 at 2200, Until Discontinued, Routine Given 02/04/2016 10:00 PM EDT 80 mg diaZEPam (VALIUM) tablet 5 mg 5 mg, Oral, MEDICAL LAB TECH INSTRUCTOR, 1 dose, On Tue02/05/16 at 0830, Routine Given 02/05/2016 9:23 AM EDT 5 mg diphenhydrAMINE (BENADRYL) capsule 50 mg 50 mg, Oral, MEDICAL LAB TECH INSTRUCTOR, 1 dose, On Tue02/05/16 at 0830, Routine Given 02/05/2016 9:23 AM EDT 50 mg diphenhydrAMINE/aluminum-ma gnesium hydroxide with simethicone/lidocaine (BMX) oral suspension 20 mL, Oral, ONCE, 1 dose, On Tue02/05/16 at 1445, Each 5mL contains equal parts of Maalox, Lidocaine, and Diphenhydramine, STAT Given 02/05/2016 2:33 PM EDT 20 mLs heparin 25,000 units in dextrose 5% 500 mL infusion 350-7,000 Units/hr (7-140 mL/hr), Intravenous, CONTINUOUS, Starting on Tue02/04/16 at 2145, Until Tue02/05/16 at 1410, Patient Weight 85-89 kg Initial [...] than 145 sec X 2 - call supervisor bottle house cleaners See Bolus dosing guidance for aPTT values less than 80 seconds under PRN medications Repeat aPTT 6 hours after initiating heparin. Then 6 hours after each dose adjustment. When 2 consecutive aPTT within target range of 80 - 114 seconds, change aPTT to once every 24 hours with A.M. labs while on heparin. RN to order required aPTT - Per Protocol, Routine Restarted 02/05/2016 5:20 AM EDT 750 Units/hr 15 mL/hr New Bag 02/04/2016 9:38 PM EDT 1,000 Units/hr 20 mL/hr lamoTRIgine (LaMICtal) tablet 100 mg 100 mg, Oral, DAILY, First dose on Tue02/05/16 at 0900, Until Discontinued, Routine Given 02/05/2016 8:23 AM EDT 100 mg LORazepam (ATIVAN) tablet 1 mg 1 mg, Oral, DAILY PRN, Starting on Tue02/04/16 at 2119, Until Tue02/05/16 at 2122, Anxiety, Routine Given 02/05/2016 4:43 PM EDT 1 mg meTOPROLOL tartrate (LOPRESSOR) tablet 25 mg 25 mg, Oral, EVERY 6 HOURS SCHEDULED, First dose on Tue02/05/16 at 0815, Until Discontinued, Hold for SBP<90 and HR<50, Routine Given 02/05/2016 8:24 AM EDT 25 mg morphine 2 mg/mL carpuject 2 mg 2 mg, Intravenous, EVERY 4 HOURS PRN, Starting on Tue02/04/16 at 2206, Until Tue02/05/16 at 0857, Pain, Routine Given 02/05/2016 6:17 AM EDT 2 mg Given 02/04/2016 10:18 PM EDT 2 mg morphine 2 mg/mL carpuject 2 mg 2 mg, Intravenous, EVERY 1 HOUR PRN, Starting on Tue02/05/16 at 0900, Until Tue02/05/16 at 1412, Pain, Routine Given 02/05/2016 9:12 AM EDT 2 mg morphine 2 mg/mL carpuject 2 mg 2 mg, Intravenous, EVERY 4 HOURS PRN, Starting on Raissa 02/05/16 at 1804, Until Raissa 02/05/16 at 2122, Pain, Routine Given 02/05/2016 6:16 PM EDT 2 mg pantoprazole (PROTONIX) tablet 40 mg 40 mg, Oral, DAILY, First dose on Raissa 02/05/16 at 1500, Until Discontinued, DO NOT CRUSH OR OPEN Given 02/05/2016 2:36 PM EDT 40 mg pregabalin (LYRICA) capsule 50 mg 50 mg, Oral, DAILY, First dose on Raissa 02/05/16 at 0900, Until Discontinued, Routine Given 02/05/2016 4:01 PM EDT 50 mg QUEtiapine (SEROquel) tablet 100 mg 100 mg, Oral, NIGHTLY, First dose on Tue02/04/16 at 2145, Until Discontinued, Routine Given 02/04/2016 9:40 PM EDT 100 mg sodium chloride 0.9 % flush 5 mL 5 mL, Intravenous, 2 TIMES DAILY, First dose on Tue02/04/16 at 2145, Until Discontinued, Routine Given 02/05/2016 9:23 AM EDT 5 mLs Given 02/04/2016 9:40 PM EDT 5 mLs sodium chloride 0.9 % flush 5 mL 5 mL, Intravenous, EVERY 12 HOURS, First dose on Raissa 02/05/16 at 0815, Until Discontinued, Cath (Day of Procedure), Routine Given 02/05/2016 9:23 AM EDT 5 mLs sodium chloride 0.9% infusion 150 mL/hr, Intravenous, CONTINUOUS, Starting on Raissa 02/05/16 at 0815, Until Raissa 02/05/16 at 1145, Cath (Day of Procedure) New Bag 02/05/2016 8:22 AM EDT 150 mL/hr 150 mL/hr sodium chloride 0.9% infusion 75 mL/hr, Intravenous, CONTINUOUS, Starting on Raissa 02/05/16 at 1215, Until Raissa 02/05/16 at 1614, Recovery (Recovery-Hospital Unit) New Bag 02/05/2016 12:30 PM EDT 75 mL/hr 75 mL /hr traMADol (ULTRAM) tablet 50-100 mg 50-100 mg, Oral, EVERY 6 HOURS PRN, Starting on Raissa 02/05/16 at 1543, Until Tue02/05/16 at 2122, Pain, Give 50 mg for mild to moderate pain (1-6). Give 100 mg for severe pain (7-10) If pain not relived after 60 minutes by a dose of 50 mg then may repeat 50 mg ONCE. Maximum of 400 mg/day., Routine Given 02/05/2016 3:58 PM EDT 50 mg documented in this encounter Active and Recently Administered Medications Times are shown in EDT. Scheduled Medication Order 02/03/2016 02/04/2016 02/05/2016 aspirin EC tablet 81 mg (CANCELED) 81 mg, Oral, DAILY, First dose on Tue02/05/16 at 0900, Until Discontinued, Routine 0823 (Given - Provid er: Yolanda Lerner RN)0941 (NOV Hold - Provider: Admin Adt - Reason: Transfer to a Procedural area)1306 ([facility] Unhold - Provider: Admin Adt) atorvastatin (LIPITOR) tablet 80 mg (CANCELED) 80 mg, Oral, EVERY EVENING, First dose on Tue02/04/16 at 2200, Until Discontinued, Routine 2200 (Given - Provider: Dixie Amaral RN) 0941 (NOV Hold - Provider: Admin Adt - Reason: Transfer to a Procedural area)1306 ([facility] Unhold - Provider: Admin Adt)1602 (Not Given - Provider: Yolanda Lerner RN - Reason: Patient/family refused) diaZEPam (VALIUM) tablet 5 mg (COMPLETED) 5 mg, Oral, MEDICAL LAB TECH INSTRUCTOR, 1 dose, On Raissa 02/05/16 at 0830, Routine 0923 (Given - Provid er: Yolanda Lerner RN) diphenhydrAMINE (BENADRYL) capsule 50 mg (COMPLETED) 50 mg, Oral, MEDICAL LAB TECH INSTRUCTOR, 1 dose, On Raissa 02/05/16 at 0830, Routine 0923 (Given - Provid er: Yolanda Lerner RN) diphenhydrAMINE/aluminum- magnesium hydroxide with simethicone/lidocaine (BMX) oral suspension (COMPLETED) 20 mL, Oral, ONCE, 1 dose, On Tue02/05/16 at 1445, Each 5mL contains equal parts of Maalox, Lidocaine, and Diphenhydramine, STAT 1433 (Given - Provid er: Shelley Lang RN) lamoTRIgine (LaMICtal) tablet 100 mg (CANCELED) 100 mg, Oral, DAILY, First dose on Raissa 02/05/16 at 0900, Until Discontinued, Routine 0823 (Given - Provid er: Yolanda Lerner RN)0941 ([facility] Hold - Provider: Admin Adt - Reason: Transfer to a Procedural area)1306 ([facility] Unhold - Provider: Admin Adt) meTOPROLOL tartrate (LOPRESSOR) tablet 25 mg (CANCELED) 25 mg, Oral, EVERY 6 HOURS SCHEDULED, First dose on Tue02/05/16 at 0815, Until Discontinued, Hold for SBP<90 and HR<50, Routine 0824 (Given - Provid er: Yolanda Lerner RN)0941 ([facility] Hold - Provider: Admin Adt - Reason: Transfer to a Procedural area)1200 (Automatically Held - Provider: Admin Adt)1306 ([facility] Unhold - Provider: Admin Adt) pantoprazole (PROTONIX) tablet 40 mg (CANCELED) 40 mg, Oral, DAILY, First dose on Tue02/05/16 at 1500, Until Discontinued, DO NOT CRUSH OR OPEN 1436 (Given - Provid er: Shelley Lang RN) pregabalin (LYRICA) capsule 50 mg (CANCELED) 50 mg, Oral, DAILY, First dose on Tue02/05/16 at 0900, Until Discontinued, Routine 0941 ([facility] Hold - Provider: Admin Adt - Reason: Transfer to a Procedural area)1306 ([facility] Unhold - Provider: Admin Adt)1601 (Given - Provider: Yolanda Lerner RN) QUEtiapine (SEROquel) tablet 100 mg (CANCELED) 100 mg, Oral, NIGHTLY, First dose on Tue02/04/16 at 2145, Until Discontinued, Routine 2140 (Given - Provider: Dixie Amaral RN) 0941 ([facility] Hold - Provider: Admin Adt - Reason: Transfer to a Procedural area)1306 ([facility] Unhold - Provider: Admin Adt) sodium chloride 0.9 % flush 5 mL (CANCELED) 5 mL, Intravenous, 2 TIMES DAILY, First dose on Tue02/04/16 at 2145, Until Discontinued, Routine 214 (Given - Provider: Dixie Amaral RN) 0923 (Given - Provider: Yolanda Lerner RN)0941 (NOV Hold - Provider: Admin Adt - Reason: Transfer to a Procedural area)1306 (NOV Unhold - Provider: Admin Adt) sodium chloride 0.9 % flush 5 mL (CANCELED) 5 mL, Intravenous, EVERY 12 HOURS, First dose on Raissa 02/05/16 at 0815, Until Discontinued, Cath (Day of Procedure), Routine 09 (Given - Provid er: Yolanda Lerner RN) [...] than 145 sec X 2 - call supervisor bottle house cleaners See Bolus dosing guidance for aPTT values less than 80 seconds under PRN medications Repeat aPTT 6 hours after initiating heparin. Then 6 hours after each dose adjustment. When 2 consecutive aPTT within target range of 80 - 114 seconds, change aPTT to once every 24 hours with A.M. labs while on heparin. RN to order required aPTT - Per Protocol, Routine 2137 (New Bag - Provider: Dixie Amaral RN) 0419 (Paused - Provider: Angeles Araujo RN - Comment: aPTT >145 sec)0520 (Restarted - Provider: Angeles Araujo RN)0928 (Stopped - Provider: Yolanda Lerner RN)0941 (NOV Hold - Provider: Admin Adt - Reason: Transfer to a Procedural area)1306 (NOV Unhold - Provider: Admin Adt) sodium [...] Kam Marrero RN)1001 (Given - Provider: Janet Quiles, KOREY) heparin (porcine) injection (CANCELED) ONCE PRN, Starting on Raissa 02/05/16 at 1023, Until Raissa 02/05/16 at 1143, Cath (Intra-Procedure), Routine 1023 (Given - Provid er: Janet Quiles, KOREY) LORazepam (ATIVAN) tablet 1 mg (CANCELED) 1 mg, Oral, DAILY PRN, Starting on Tue02/04/16 at 2119, Until Raissa 02/05/16 at 2122, Anxiety, Routine 0941 (NOV Hold - Provider: Admin Adt - Reason: Transfer to a Procedural area)1306 (NOV Unhold - Provider: Admin Adt)1643 (Given - Provider: Yolanda Lerner, KOREY) midazolam (PF) (VERSED) 1 mg/mL multi-dose injection [...] Pain, Routine 2218 (Given - Provider: Dixie Amaral RN) 0617 (Given - Provider: Angeles Araujo RN) morphine 2 mg/mL carpuject 2 mg (CANCELED) 2 mg, Intravenous, EVERY 1 HOUR PRN, Starting on Raissa 02/05/16 at 0900, Until Raissa 02/05/16 at 1412, Pain, Routine 0912 (Given - Provid er: Yolanda Lerner, KOREY)0941 (NOV Hold - Provider: Admin Adt - Reason: Transfer to a Procedural area)1306 (NOV Unhold - Provider: Admin Adt) morphine 2 mg/mL carpuject 2 mg (CANCELED) 2 mg, Intravenous, EVERY 4 HOURS PRN, Starting on Raissa 02/05/16 at 1804, Until Raissa 02/05/16 at 2122, Pain, Routine 1816 (Given - Provid er: Yolanda Lerner RN) nitroGLYcerin 100 mcg/mL intracoronary dilution (CANCELED) ONCE PRN, Starting on Raissa 02/05/16 at 1017, Until Raissa 16 at 1143, Cath (Intra-Procedure), Routine 1017 (Given [...] MD) documented in this encounter Care Teams Corrections Caseworker Relationship Specialty Start Date End Date Kg Maldonado APRN [address] [place] [address] PCP - General 10/03/11 02/05/16 documented as of this encounter
--- OUTSIDE RECORDS SUMMARY | 2024-04-13 11:22 | XMS_ITS | Encounter Summary ---
Author Organization [facility] Address [facility] [place] [address] Care Team Providers Care Facilities Administrator Name Role Phone Modesto Hayes MD Primary Care Provider + Encounter Details Date Type Department Care Team (Late st Contact Info) Description 09/28/2010 8:45 AM EST Office Visit Dermatology [address] [place], [place] [id number] Ronnie Crowder MD [address] [facility] [place] [address] Social History Tobacco Use Types Packs/Day Years Used Date Smoking Tobacco: Never Assessed Sex and Gender Information Value Date Recorded Sex Assigned at Not on file Gender Identity Not on file Sexual Orientation Not on file documented as of this encounter Plan of Treatment Not on file documented as of this encounter Visit Diagnoses Not on filedocumented in this encounter Care Teams Facilities Administrator Relationship Specialty Start Date End Date Modesto Hayes MD [address] [place] [address] PCP - General 08/18/10 10/02/11 documented as of this encounter
--- OUTSIDE RECORDS SUMMARY | 2024-04-13 11:22 | XMS_ITS | Encounter Summary ---
Author Organization [facility] Address [facility] [place] [address] Care Team Providers Care Regional Production Manager Name Role Phone JovanniPark Husain TIER LIFT OPERATOR Primary Care Provider [phone] Reason for Referral * Consultation (Routine) - Closed Specialty Diagnoses / Procedures Referred By Maurisio bergman Referred To Contact Pain Management Diagnoses Chronic pain Montse Arce MD [facility] [place] [address] [facility] [address] [place] [id number] Referral ID Status Reason Start Date Expiration Date V isits Requested Visits Authorized [id number] Closed Consult Only 11/03/2011 05/01/2012 1 1 Encounter Details Date Type Department Care Team (Late st Contact Info) Description 11/03/2011 1:45 PM EST [place] [address] Vikash Portillo MD [facility] [place] [address] ICH (intracerebral hemorrhage) (Primary Dx); Chronic pain Discharge Disposition: Home Social History Tobacco Use [...] Sign Reading Time Taken Comments Blood Pressure 123/89 11/03/2011 1:58 PM EST Pulse 72 11/03/2011 1:58 PM EST Temperature - - Respiratory Rate - - Oxygen Saturation - - Inhaled Oxygen Concentration - - Weight 72.6 kg (160 lb) 11/03/2011 1:58 PM EST r eported Height 172.7 cm (5' 8) 11/03/2011 1:58 PM EST r eported Body Mass Index 24.33 11/03/2011 1:58 PM EST documented in this encounter Progress Notes * Montse Arce - 11/03/2011 2:26 PM EST Neurology Clinic Initial Progress Note CC: hospital check HPI: Ms. Williamson is a 46 yo female with a PMH significant for migraines, HTN, and PRES with related seizures, absence seizures as child, depression/bipolar disorder managed on lamictal, chronic back and neck pain s/p cervical fusion and lumbar laminectomy who presents for a hospital check. She was admitted from 10/03- 07/07 for left parietal hemorrhage. Patient presented with several days of poorly controlled headaches and a breakthrough generalized seizure without head trauma. Lamictal level was subtherapeutic at 1.2 on admit, coags were normal. Utox positive for marijuana. Head CT revealed a 2x3cm left parietal hemorrhage. Neurosurgery was consulted but deemed her non-traumatic IPH nonsurgicaland more suitable for medical management and thus patient was admitted to the Neurology service. CTA was unremarkable for underlying vascular malformation. MRI of the brain with and without contrast was consistent with her known left parietal hemorrhage with surrounding edema and mass effect but noabnormal mass; also persistent signal present in right parietal lobe consistent with patient???s his tory of PRES. DDx included poorly controlled HTN, RCVS secondary to SSRI use, and RECEPTIONIST SCHEDULER vasculitis. CRP, ESR, RF, EMIL, MPO, proteinase-3, and c/p-ANCA were found to be within normal limits. Conventional angiogram was obtained and was revealing for small areas of distal arterial narrowing in the parietal and occipital lobes consistent with sequealae of PRES. No other arterial or venous abnormality was seen. The patient???s mental status improved and she was able to provide additional history at this point to endorse the use of up to 8 tablets of 100mg Imitrex per day for several days prior to admission. The possibility of transient vasospasm related to Imitrex overuse leading to IPH was considered. Paxil and Imitrex were discontinued and patient was transitioned from Toprol to Verapamil for dual BP control and migraine prevention. Gabapentin was initiated for neuropathic pain control with plan to consider narcotic wean as outpatient and repeat CTA in 3 months. Interval history: Patient returns to clinic at this time and reports headache is described as better in terms of severity, located top of head, dull most of the time, sharp exacerbation. Headaches are no longer daily and now she is able to function better overall. Initially she had home PT and now is undergoing outpatient PT for weakness on her right side. She still has issues with L/R confusion and some clumsiness of her right hand. Her issues with speech have resolved. She continues to have chronic issues with neck and back pain. This is managed by her PCP. She is willing to come off narcotics with pain clinic help, ?methadone. She is tolerating the Verapamil well with some constipation improved with Colace. She is tolerating Neurontin as well. No recurrent seizures. Neurological reviewof systems is pertinent for depressed mood, as she has been having some issues with her children. She endorses a good social support system and denies suicidality. She believes her short term memory is impaired but improving since the hemorrhage. Denies issues with vision, left sided weakness, sensory changes, or imbalance. PMH: Migraines HTN PRES (01/2011 admission, presented with AMS, GTC seizure, and HTN, normal EEG/LP, MRI consistent with PRES, discharged on antihypertensive regimen and continued Lamictal) Medications and Allergies reviewed in eDH FHx: Noncontributory SocHx: Disability due to chronic pain. Tobacco: 1ppd x25yrs, has ordered electronic cigarette and is motivated to quit EtOH: denies Physical Exam: Vitals: Temp: -- Heart Rate: [72] Resp: -- BP: (123)/(89) SpO2: -- General: Tearful at times, otherwise NAD. Nondiaphoretic. HEENT: normocephalic/atraumatic. Oropharynx clear. Neck is supple with FROM. No meningeal signs. Bilateral belly of trapezeii are taut to palpation. CV: regular rate/rhythm, no murmurs/rubs/gallops. No carotid bruits ascultated. Pulm: clear to auscultation bilaterally. Extremities: warm and well perfused, no edema Neuro: Mental Status: alert and oriented to person, place and date. Speech is fluent without dysarthria oraphasia. Raspy voice quality. Naming, reading, repetition intact. Able to follow multistep commandscrossing midline. CN: PERRL, EOMI, no ptosis, visual lawrence intact. Facial sensation intact to light touch throughout. Hearing intact to fingerub BL. Face symmetric without ptosis or droop. Midline palatal elevation and tongue protrusion. Normal shoulder shrug, normal head rotation strength Motor: Normal tone and bulk. No tremor or pronator drift. Full strength throughout Reflex: R: TJ 1+, BJ 1+, BRJ 1+, Pat 2+, AJ 2+, toes equivocal L: TJ 1+, BJ 1+, BRJ 1+, Pat 2+, AJ 2+, toes equivocal Sensation: intact to touch throughout. Coordination: Normal onzmrs-bjyw-qtznzc, decreased GERALDINE on right, normal on left. Romberg not present Gait: Normal gait and armswing Labs: See HPI, none new Diagnostic Testing: See HPI, none new Assessment: 46 yo female with a PMH significant for migraines, HTN, and PRES with related seizures,absence seizures as child, depression/bipolar disorder managed on lamictal, chronic back and neck pain s/p cervical fusion and lumbar laminectomy who presents for a hospital check for her left parietal hemorrhage in setting of Imitrex overuse, HTN, and breakthrough seizure. Clinically the patient continues to improve with respect to her right sided weakness, headaches, and speech. No recurrent seizures. I have encouraged her to continue with outpatient PT. She appears to be tolerating her medications well and we will dose increase her Gabapentin. She is motivated to quit smoking and wean her narcotics. She is interested in methadone. We will refer her to the pain clinic at this time and coordinate this with Neurology follow-up. We will see her in follow-up after a repeat CTA in 2 months to ensure no underlying vascular abnormality. Patient is in agreement with the plan. Plan: -continue Lamictal -continue Verapamil and Colace -titrate Gabapentin to 600 TID -continue outpatient PT -imaging: repeat CTA in 2 months (ordered) -labs: none -referral to pain clinic, ?coordinate with Neurology follow-up given distance from home -follow-up Neurology clinic after CTA in 2 months Case discussed with Dr. Maria Teresa Arce MD. PGY3 Neurology Resident Neurology (Staff) Addendum I saw and evaluated the patient with Dr. Arce on 11/03/2011. I have reviewed the resident's history, physical examination findings, assessment and plan during the visit and I agree with the details as written, unless otherwise specified as below. 46 y/o woman w/ recent left parietal hemorrhage in setting of elevated BP, serotonin exposure. Workup (incl. MRI, angiogram) nondiagnostic. Pt improved since discharge. Still has chronic pain issues; interested in considering methadone/pain clinic referral. She is trying to quit smoking. She knows importance of BP control. Will reimage w/ CT, CTA CoW at f/u visit ~2 months. Dionicio Morel DO Neurology Staff documented in this encounter Plan of Treatment Scheduled Referrals Name Type Priority Associated Diagnoses Orde r Schedule REFERRAL TO PAIN CLINIC Outpatient Referral Routine Chronic pain Ordered: 11/03/2011 documented as of this encounter Visit Diagnoses Diagnosis ICH (intracerebral hemorrhage)- Primary Intracerebral hemorrhage Chronic pain Other chronic pain documented in this encounter Care Teams Regional Production Manager Relationship Specialty Start Date End Date Park Rawls APRN [address] [place] [address] PCP - General 10/03/11 02/05/16 documented as of this encounter
--- OUTSIDE RECORDS SUMMARY | 2024-04-13 11:22 | XMS_ITS | Encounter Summary ---
Author Organization [facility] Address [facility] [place] [address] Care Team Providers Care Hall Tender Name Role Phone Modesto Hayes MD Primary Care Provider + Encounter Details Date Type Department Care Team (Late st Contact Info) Description 10/02/2011 [place] [address] Edy Shipley MD [facility] [address] Social History Tobacco Use Types Packs/Day Years Used Date Smoking Tobacco: Every Day Cigarettes 1 25 Smokeless Tobacco: Never Comments:avs information Alcohol Use Standard Drinks/Week Comments Not Asked 0 (1 standard drink = 0.6 oz [...] FILM LIBRARY STORAGE ONLY CT HEAD Routine 10/02/2011 9:58 PM EST documented in this encounter Results * FILM LIBRARY- STORAGE ONLY CT HEAD (10/02/2011 9:58 PM EST) 10/02/2011 9:58 PM EST Narrative RAD - 01/29/2014 7:44 PM EDT This is a non-reportable exam. Procedure Note Rios Benton - 01/29/2014 This is a non-reportable exam. Edy Ahumada MD IM FILM LIBRARY ORDERABLES DH RAD [address] [facility] [place] [address] documented in this encounter Visit Diagnoses Not on filedocumented in this encounter Care Teams Hall Tender Relationship Specialty Start Date End Date Modesto Hayes MD [address] [place] [address] PCP - General 08/18/10 10/02/11 documented as of this encounter
--- OUTSIDE RECORDS SUMMARY | 2024-04-13 11:22 | XMS_ITS ---
Author Organization Unknown Address [address] [place] [phone] Phone Care Team Providers Care Phlebotomy Tech Name Role Phone SEBASTIÁN [place] DPMoris Attending Unavailable MADHU NORIEGA Primary Unavailable Results MO FOOT LEFT 3V MIN - Comple jarvis: 04/27/2021 16:56 LOINC: Three views were obtained. T here appears to be a mild flat foot deformity. There is moderate hallux valgus deformity. There are slight secondary degenerative changes of the 1st MTP joint. There are mild degenerative changes of the articulations of the ankle most prominent at the talonavicular joint. No other significant bony or soft tissue abnormality is seen. Dictated by: MONIE MCGINNIS M.D. RADIOLOGIST Transcribed by: ORLANDO 04/27/21/14:41 D 04/27/2021 13:51:54 [id number] Electronically Reviewed and Signed By: DOUGLAS MCGINNIS M.D. RADIOLOGIST 04/27/21 15:23 Social History Type Status Start Date End Date Code Code Syst em Smoking History Current every day smoker [id number] SNOMED CT Sex Female Hospital Discharge Instructions Should you have any questions prior to discharge, please contact a member of your healthcare team. If you have left the hospital and have any questions, please contact your primary care physician. Reason For Referral No Data Found Plan of Treatment No Data Found Encounters Encounter Diagnosis Start Date Code Code Sys tem Idiopathic osteoarthritis 04/27/2021 [id number] SN OMED-CT Personal Care Team Section Performer Name Performer Role Active Date Inactive Da te
--- OUTSIDE RECORDS SUMMARY | 2024-04-13 11:22 | XMS_ITS | Encounter Summary ---
[place] [address] Care Team Providers Care Director Of Audiology Name Role Phone Modesto Hayes MD Primary Care Provider + Encounter Details Date Type Department Care Team (Late st Contact Info) Description 04/27/2011 Abstract [place] [id number] Gabriela Tapia RN Social History Tobacco Use Types Packs/Day [...] filedocumented in this encounter Care Teams Director Of Audiology Relationship Specialty Start Date End Date Modesto Hayes MD [address] [place] [address] PCP - General 08/18/10 10/02/11 documented as of this encounter
--- OUTSIDE RECORDS SUMMARY | 2024-04-13 11:22 | XMS_ITS | Encounter Summary ---
Author Organization [facility] Address [facility] [place] [address] Care Team Providers Care Driver Guide Name Role Phone Park Rawls APRN Primary Care Provider [phone] Encounter Details Date Type Department Care Team (Late st Contact Info) Description 11/16/2011 [place] [phone] Vikash Portillo MD [facility] [place] [address] Social History Tobacco Use Types Packs/Day Years [...] FILM LIBRARY STORAGE ONLY CT HEAD Routine 11/16/2011 9:15 AM EST documented in this encounter Results * FILM LIBRARY- STORAGE ONLY CT HEAD (11/16/2011 9:15 AM EST) 11/16/2011 9:15 AM EST Narrative [facility] - 02/19/2014 1:41 PM EDT This is a non-reportable exam. Procedure Note Rios Benton - 02/19/2014 This is a non-reportable exam. Vikash Portillo MD IM FILM LIBRARY ORD ERABLES RAD [address] [address] documented in this encounter Visit Diagnoses Not on filedocumented in this encounter Care Teams Driver Guide Relationship Specialty Start Date End Date Park Rawls APRN [address] [place] [address] PCP - General 10/03/11 02/05/16 documented as of this encounter
--- OUTSIDE RECORDS SUMMARY | 2024-04-13 11:22 | XMS_ITS | Encounter Summary ---
Author Organization [facility] Address [facility] [place] [address] Care Team Providers Care Orthopedic Shoe Maker Name Role Phone Trip Perry MD Primary Care Provider + Encounter Details Date Type Department Care Team (Latest Contact Info) Description 02/14/2011 3:11 AM EDT - 02/17/2011 12:35 PM EDT Hospital Encounter [address] [place] [address] Alyssa Beltran MD [facility] [place] [address] Ash Leroy MD [address] [place] [address] [place] [address] Mental status alteration; Cardiac enzymes elevated; Altered mental status; Other nonspecific abnormal serum enzyme levels Discharge Disposition: Home Social History Tobacco Use Types Packs/Day Years Used Date Smoking Tobacco: Never Assessed Sex and Gender Information Value Date Recorded Sex Assigned at Not on file Gender Identity Not on file Sexual Orientation Not on file documented as of this encounter Last Filed Vital Signs Vital Sign Reading Time Taken Comments Blood Pressure 101/77 02/17/2011 11:50 AM EDT Pulse 59 02/17/2011 11:50 AM EDT Temperature 36.7 ??C (98.1 ??F) 02/17/2011 11:50 AM E DT Respiratory Rate 16 02/17/2011 11:50 AM EDT Oxygen Saturation 96% 02/17/2011 11:50 AM EDT Inhaled Oxygen Concentration - - Weight 68.1 kg (150 lb 2.1 oz) 02/15/2011 11:56 PM EDT Height 177.8 cm (5' 10) 02/14/2011 5:00 AM EDT Body Mass Index 21.54 02/14/2011 5:00 AM EDT documented in this encounter Discharge Instructions * Patient Instructions* Nitish Hayden MD - 02/17/2011 11:48 AM EDT Instruction after leaving the hospital Why you were hospitalized: Seizure and confusion Call your doctor or seek medical attention if you develop the following: Recurrent seizure, worsening confusion or tremors, chest pain, shortness of breath, abdominal pain. Activity level: Per normal routine Diet: low fat, low cholesterol diet Driving: No driving until re-evaluated by a doctor Shower/Bath: Per normal routine Wound Care: N/A Home Oxygen therapy: None needed Specific instructions related to your condition: Follow-up Appointments after Discharge Provider and Service Date Time Location Dr. Rudolph (Primary Care) 02/25 8:[address] Care [address]. Shah (neurology) Friday 03/09 11:00 AM [facility] Neurology 3C Your Inpatient Medical Team at [facility] Name(s) of your inpatient provider(s): Dr. Nitish Hayden For questions regarding issues relating to your hospitalization on the Medical Service, please contact your inpatient physician through the [facility] Cinder Crusher Operator . Issues after hours and on weekends will be handled by the Hospitalist staff on-call. Your Primary Care Provider TRIP PERRY MD documented in this encounter Medications at Time of Discharge Medication Sig Dispensed Refills Start Date End Date metoprolol succinate (TOPROL-XL) 50 mg 24 hr tablet Take 1 tablet by mouth daily. 30 tablet 12 02/17/2011 02/17/2012 aspirin 81 mg EC tablet Take 1 tablet by mouth daily. 30 tablet 02/17/2011 10/05/2011 OXYcodone (ROXICODONE) 15 mg immediate release tablet Take 15 mg by mouth every 4 hours as needed. (7x per day) 02/04/2016 docusate sodium (COLACE) 100 mg capsule Take 100 mg by mouth daily as needed. 02/15/2011 02/04/2016 PARoxetine (PAXIL) 30 mg tablet Take 60 mg by mouth every morning. 10/05/2011 lamoTRIgine (LAMICTAL) 100 mg tablet Take 100 mg by mouth daily. 06/11/2016 SUMAtriptan (IMITREX) 100 mg tablet Take 100 mg by mouth as needed. 02/14/2011 10/05/2011 QUEtiapine (SEROQUEL) 25 mg tablet Take 50 mg by mouth 3 times daily. 02/14/2011 10/05/2011 documented as of this encounter Progress Notes * Vivian Kendall RN - 02/17/2011 12:33 PM EDT Pt discharged to home accompanied by family. PIV removed per MD order. Discharge instructions givento pt and explained by MD and RN. * Salo Lang, PT - 02/17/2011 12:01 PM EDT Physical Therapy Evaluation Patient profile: Patient is a 45 y.o. female of Nitish Mckeon MD, admitted on 02/14/2011. PMH: Past Medical History Diagnosis Date ??? Seizures ??? Depression ??? HTN (hypertension) History reviewed. No pertinent past surgical history. Interval History: Active Hospital Problems Diagnoses ??? PRES (posterior reversible encephalopathy syndrome) Resolved Hospital Problems Diagnoses Date Resolved ??? Seizure 02/17/2011 Priority: High ??? Fever 02/17/2011 Priority: Medium ??? Confusion 02/17/2011 Priority: Medium ??? Abdominal pain 02/17/2011 ??? Cardiac enzymes elevated 02/17/2011 Social History: Home Living Type of Home: Mobile home Home Layout: One level;Stairs to enter w/o rails;Other (comment) (2 steps, pt normally holds onto for support.) Bathroom Shower/Tub: Tub/Shower unit Bathroom Toilet: Standard Bathroom Equipment: Grab bars in shower Home Equipment: (walking stick) Prior Function Level of Semmes: Independent with ADLs and functional transfers;Needs assistance with homemaking Lives With: Spouse Receives Help From: Family ADL Assistance: Independent Homemaking Assistance: ( does vacuuming, pt some cooking, folding laundry) Vocational: On disability Additional Comments: (Pt was scheduled for oupt PT, but went 1x due to illness) Precautions/Special Considerations: Precautions/Limitations: fall precautions S/z d/o. Subjective: I feel so much better. I do feel a little more unsteady on my feet, but my will help me. and son state pt has been getting weaker and more unsteady x 3 months. They felt pt looked better than she did prior to last few months. Objective: Total time spent with patient: 43 minutes Total timed interventions:0 minutes Pain: Chronic neck and LBP. Uses oxycodone at home and valium. Pain no worse now than prior to admission. Gets sciatic pain LLE, intermittently. Vital Signs: Sp02: NE HR: telemetry. Mental Status/Behavior: Pt status: Alert, oriented, thought content appropriate Strength/ROM: BUE and BLE AROM grossly wfls. UE strength not resisted, but at least 3/5. Both hip flexion ~3+/5, knees 4/5 right and ~4-/5 left, left ankle df 4-/5 and 4/5 on the right. Bed Mobility: Supine -> Sit: supervision. Rolling: independent. Transfers: Sit <-> Stand: supervision using no assistive device. Bed <-> Chair: contact guard of 1 using no assistive device. Gait: Distance: 125' Device: no assistive device Assist level: contact guard. Gait pattern: LEs cross midlines at time, corrected by stopping or sidestepping. Pt. to utilize one hand hold and straight cane and contact guard for ambulation with nursing. Balance: Sitting: Good sitting balance. Able to don slipper socks sitting EOB by figure 4 position, pulling foot to thigh level. ?? Standing: Fair static standing. Unable to stand tandem without min to mod support. Negative rhomberg, but increased trunk sway and only kept eyes closed for 10 seconds. LLE unilateral stance ~1-2 seconds and RLE ~3-4 seconds. Education: Pt told she should not walk without support of cane and/or until stronger and balance improved. Instructed Pt to continue PT as an outpt.. Pt left sitting in a recliner with son and present. Patient status, treatment, and mobility recommendations discussed with nursing. Assessment: Pt is a nice lady with resolved cognitive issue s/p Posterior reversible encephalopathy syndrome. Pt with gait and balance issues prior to admission due to chronic back pain and LLE deficits >right. Not back at baseline after prolonged bedrest. Feel she is safe for dc with assisting, as needed. Pt given a cane that was adjusted for her height and told to use it on her right side. PT will be helpful to return pt to baseline and treat back pain. Clear for dc home with family support. Goals: To be achieved by 02/17/11. 1. supervision with bed mobility. 2. supervision with sit <-> stand transfers utilizing a no assistive device. 3. Pt. to ambulate >100' feet; with a one hand hold/cane, and contact guard. 4. Pt. to ambulate up/down 2 step/stairs with agreeing to assist on one arm and cane in theopposite side. 5. Family or caregiver to demonstrate understanding of therapeutic interventions to support the care of the patient. Plan: Pt to be seen 1 times per week for therapy including Transfers, Assistive device/technique, Safety , Equipment use, Gait , Role of therapy, Balance and Discharge planning. Equipment needs: Cane Discharge Recommendations: Patient would benefit from continued outpatient physical therapy to progress toward functional goals. No other consults recommended at this time Pager: [phone] SALO LANG, PT 02/17/2011 Physical Therapy Rehabilitation Department * Ltous Maldonado, OT - 02/17/2011 11:55 AM EDT Occupational Therapy Evaluation Patient profile: Patient is a 45 [address] of Dr[address] Alyssa Beltran MD, admitted on 02/14/2011 with mental status changes. PMH: Past Medical History Diagnosis Date ??? Seizures ??? Depression ??? HTN (hypertension) History reviewed. No pertinent past surgical history. Social History: Home Living Type of Home: Mobile home Home Layout: One level;Stairs to enter w/o rails Bathroom Shower/Tub: Tub/Shower unit Bathroom Toilet: Standard Bathroom Equipment: Grab bars in shower Home Equipment: (walking stick) Prior Function Level of Semmes: Independent with ADLs and functional transfers;Needs assistance with homemaking Lives With: Spouse Receives Help From: Family ADL Assistance: Independent Homemaking Assistance: ( does vacuuming, pt some cooking, folding laundry) Vocational: On disability Precautions/Special Considerations: Precautions/Limitations: fall precautions Subjective: I don't, remember what happened, that's probably a good thing Pain:none Objective: Pt seen today for evaluation. Seen with PT. Possible d/c home today. Cognitive Status/Behavior: alert, oriented to person, place, and time. Family reports much improved. Coping: no apparent distress, pleasant, cooperative Vision & Perception: wears bifocals Activities of Daily Living: Self-feeding: not assessed Upper body self care: pt reports walked into bathroom this morning for self care Lower body self care: Level of assistance: independent to don socks. Completed: EOB Toileting: Toilet Transfer: Level of assistance: independent Functional Mobility: Supine to sit: independent Sit to stand: independent Ambulation: supervision Stand to sit: independent Endurance: SpO2: 98% HR: low 60s Pt tolerated well. Walked 40 feet x2. Range of motion, strength, coordination: Bilateral UEs are within functional limitations Right UE is within functional limitations Left UE is within functional limitations LE limitations: LLE weaker at baseline, has occasional tingling hip to ankle. Balance: Patient has a history of falls. Reports fell in store this winter and broke tailSignadynee. Balance deficits observed: A little unsteady on feet, drifting to the right side, but pt aware. Sitting balance: Static: good Dynamic: good Standing balance: Static: good Dynamic: fair+. Informed Consent: The patient agrees to and understands the OT treatment plan and goals. Education: family and patient have been educated on Role of occupational therapy/rehabilitation, Transfers, Assistive device/technique, Safety, Functional Mobility, Activity pacing/Energy conservation and Recommendations and verbalizes understanding. Patient status, treatment, and mobility recommendations discussed with nursing. Assessment: Pt admitted with mental status changes, observed seizure at home. Pt and report decline past 3 months, pt reports feeling tired, states as id someone unplugged her spirit. Pt alert and oriented, following directions. A little unsteady on her feet when walking, drifting to the right, but pt aware. is home 18/04, at baseline pt does not ambulate far distances. Pt's son and report pt 100% better. Probable d/c home today. No further OT intervention indicated. 1. Plan: No skilled OT needs. D/C skilled OT. Recommendations: Equipment needs at discharge: pt will get shower chair Discharge Recommendations:no follow up OT needs. Other Recommendations: No other consults recommended at this time Total time spent with patient: 30 minutes Total timed interventions: 0 minutes Pager: [phone] LOTUS MALDONADO OT 02/17/2011 Occupational Therapy Rehabilitation Department * Sindhu Ba RN - 02/17/2011 11:11 AM EDT OFFICE OF CARE MANAGEMENT CLINICAL TEACHER ASSOCIATE PROGRESS NOTE e-DH reviewed. Report received from Dr. Hayden. Per MD, pt is medically ready for discharge today. Pt is ambulating independently in her room. Steady per bedside RN. Alert and oriented x3. Pt's Ivan will provide transportation. No needs at discharge. Plan: CRC will continue to follow for coordination of care and to facilitate discharge planning. Sindhu Ba RN [facility] Clinical Social Group Worker Office of Care Management pager [phone] * Mary Noe RN - 02/17/2011 6:45 AM EDT Patient Name:Sahra Cobb [address] Telemetry Note Diagnosis r/t telemetry: Seizure Subjective: Objective: Pt reported to have had chest pain early during the day that lasted an hour, which she did not report. Pt informed of importance to report chest pain and agreed to notify staff. Pt slept without sx/sy of distress overnight. Pt c/o pain and received oxycodone 15mg PRN. VSS: see merlene-sheet Cardiac meds: see MAR Assessment: Pt appears to be tolerating current rate & rhythm. Telemetry noted rare PVCs, sinusbradycardia, sinus rhythm. HR 50-85. Plan: continue tele monitoring, assess hemodynamic tolerance of dysrythmia, see tele strip (attached) * Rupinder Ziegler RD - 02/16/2011 12:45 PM EDT Nutrition Services Initial Note Patient Active Hospital Problem List: *Seizure (02/14/2011) Fever (02/14/2011) Confusion (02/14/2011) Abdominal pain (02/15/2011) Cardiac enzymes elevated (02/15/2011) Diet order: Regular Appetite: decreased Wt: 68.1 kg Admit Wt: 70.3 kg Ht: 177.8 cm BMI: 22.3 Wt changes: 30 lbs wt loss per patient over the past 6-8 months since she has not been feeling well Albumin 3.5 Assessment: Patient at increased nutrition risk secondary to decreased appetite and oral intake, and h/o unplanned 30 lb wt loss over the past 6-8 months. Patient reports eating only 25% of meal trays. Agrees to snacks and would like to try Ensure supplements. Plan/Recommendations: Regular diet as ordered. Encourage p.o. intake. [place] food preferences as able. Snacks/Ensure supplements added to maximize oral intake. Monitor weight. Suggest multivitamin supplement. Nutrition services to follow up weekly unless consulted in the interim. * Nitish Hayden MD - 02/16/2011 9:28 AM EDT [facility] MEDICINE DAILY PROGRESS NOTE Name: Sahra Cobb : 1965 Sex: female Problem List: No resolved problems to display. Active Hospital Problems Diagnoses ??? Seizure Priority: High ??? Fever Priority: Medium ??? Confusion Priority: Medium ??? Abdominal pain ??? Cardiac enzymes elevated Resolved Hospital Problems Diagnoses Date Resolved PMHx: Past Medical History Diagnosis Date ??? Seizures ??? Depression ??? HTN (hypertension) 24 Hour Events: None Subjective: No complaints. Abd pain mostly resolved and feels like muscle strain. Denies CP, deniesSOB, denies N/V. Diarrhea resolving off antibiotics. Physical Exam: Temp: [36.7 ??C (98.1 ??F)-36.9 ??C (98.4 ??F)] Heart Rate: [60-84] Resp: [20-22] BP: (104-130)/(73-96) SpO2: [90 %-99 %] Gen: NAD HEENT: MMM, no oral lesions/erythema Resp: mild crackles bilat bases CV: RRR, S1/S2, no m/r/g Abd: Soft, ND, NABS, + mild LLQ abd tenderness Ext: No LE edema Skin: No rash Neuro: A&Ox3, uvula/palate elevate mildline, tongue midline, face symmetric Lines: Results for orders placed during the hospital encounter of 02/14/11 (from the past 24 hour(s)) CBC (WITH DIFF) Component Value Range ??? WBC 19.1 (*) 4.0 - 10.0 (x10(3)/mcL) ??? RBC 4.27 3.93 - 5.22 (x10(6)/mcL) ??? Hemoglobin 12.9 11.2 - 15.7 (gm/dL) ??? Hematocrit 37.7 34.0 - 45.0 (%) ??? MCV 88.3 79.0 - 94.0 (fL) ??? MCH 30.2 26.6 - 32.2 (pg) ??? MCHC 34.2 32.0 - 36.5 (gm/dL) ??? Platelets 265 145 - 370 (x10(3)/mcL) ??? RDWSD 42.5 35.0 - 46.0 (fL) ??? RDWCV 13.4 10.9 - 14.4 (%) ??? MPV 10.3 9.0 - 12.0 (fL) CARDIAC ENZYMES Component Value Range ? ? Troponin-T 0.03 <=0.03 (ng/mL) ??? CK, Total 484 (*) 0 - 160 (unit/L) LACTIC ACID, PLASMA Component Value Range ??? Lactate 1.0 0.5 - 2.2 (mmol/L) COMPREHENSIVE METABOLIC PANEL (NON-FASTING) Component Value Range ??? Glucose Lvl 107 60 - 199 (mg/dL) ??? BUN 7 (*) 8 - 18 (mg/dL) ??? Creatinine 0.57 (*) 0.70 - 1.20 (mg/dL) ??? Sodium 142 135 - 145 (mmol/L) ??? Potassium 2.6 (*) 3.5 - 5.0 (mmol/L) ??? Chloride 113 (*) 98 - 107 (mmol/L) ??? CO2 19 (*) 22 - 31 (mmol/L) ??? Anion Gap 10 5 - 15 (mmol/L) ??? Calcium 7.7 (*) 8.5 - 10.5 (mg/dL) ??? Total Protein 6.1 (*) 6.4 - 8.3 (gm/dL) ??? Albumin 3.5 3.2 - 5.2 (gm/dL) ??? AST 30 0 - 30 (unit/L) ??? ALT 22 0 - 30 (unit/L) ??? Alk Phos 86 40 - 104 (unit/L) ??? Total Bilirubin 0.6 0.2 - 1.3 (mg/dL) ??? Bili, Direct 0.1 0.0 - 0.3 (mg/dL) ? ? Estimated GFR >60 >=60 REFLEX LAB-A-DIFF Component Value Range ??? Neutrophils % 77.0 (*) 34.0 - 71.0 (%) ??? Neutr Abs (ANC) 14.69 (*) 1.50 - 6.30 (x10(3)/mcL) ??? Lymphocytes % 13.9 (*) 19.0 - 53.0 (%) ??? Lymphocytes Abs 2.6 1.0 - 3.6 (x10(3)/mcL) ??? Monocytes % 8.7 4.0 - 13.0 (%) ??? Monocyte Abs 1.7 (*) 0.2 - 1.0 (x10(3)/mcL) ??? Eosinophils % 0.1 0.0 - 7.0 (%) ??? Eosinophils Abs 0.0 0.0 - 0.5 (x10(3)/mcL) ??? Basophils % 0.1 0.0 - 2.0 (%) ??? Basophils Abs 0.0 0.0 - 0.2 (x10(3)/mcL) ??? Immature Gran % 0.20 0.00 - 0.66 (%) ??? Patsy Gran Abs 0.04 0.00 - 0.05 (x10(3)/mcL) VANCOMYCIN, TROUGH Component Value Range ??? Vanc Trough 7.5 (mg/L) POTASSIUM Component Value Range ??? Potassium 4.6 3.5 - 5.0 (mmol/L) CBC (WITH DIFF) Component Value Range ??? WBC 12.2 (*) 4.0 - 10.0 (x10(3)/mcL) ??? RBC 4.45 3.93 - 5.22 (x10(6)/mcL) ??? Hemoglobin 13.2 11.2 - 15.7 (gm/dL) ??? Hematocrit 40.1 34.0 - 45.0 (%) ??? MCV 90.1 79.0 - 94.0 (fL) ??? MCH 29.7 26.6 - 32.2 (pg) ??? MCHC 32.9 32.0 - 36.5 (gm/dL) ??? Platelets 264 145 - 370 (x10(3)/mcL) ??? RDWSD 43.7 35.0 - 46.0 (fL) ??? RDWCV 13.2 10.9 - 14.4 (%) ??? MPV 10.3 9.0 - 12.0 (fL) BMP W/FASTING GLUCOSE Component Value Range ??? Glucose Fasting 104 (*) 65 - 99 (mg/dL) ??? BUN 10 8 - 18 (mg/dL) ??? Creatinine 0.70 0.70 - 1.20 (mg/dL) ??? Sodium 138 135 - 145 (mmol/L) ??? Potassium 4.4 3.5 - 5.0 (mmol/L) ??? Chloride 108 (*) 98 - 107 (mmol/L) ??? CO2 23 22 - 31 (mmol/L) ??? Anion Gap 7 5 - 15 (mmol/L) ??? Calcium 9.3 8.5 - 10.5 (mg/dL) ? ? Estimated GFR >60 >=60 MAGNESIUM Component Value Range ??? Magnesium 0.83 0.69 - 1.07 (mmol/L) PHOSPHORUS Component Value Range ??? Phosphorus 2.3 (*) 2.5 - 4.5 (mg/dL) REFLEX LAB-A-DIFF Component Value Range ??? Neutrophils % 58.1 34.0 - 71.0 (%) ??? Neutr Abs (ANC) 7.09 (*) 1.50 - 6.30 (x10(3)/mcL) ??? Lymphocytes % 31.3 19.0 - 53.0 (%) ??? Lymphocytes Abs 3.8 (*) 1.0 - 3.6 (x10(3)/mcL) ??? Monocytes % 8.7 4.0 - 13.0 (%) ??? Monocyte Abs 1.1 (*) 0.2 - 1.0 (x10(3)/mcL) ??? Eosinophils % 1.2 0.0 - 7.0 (%) ??? Eosinophils Abs 0.2 0.0 - 0.5 (x10(3)/mcL) ??? Basophils % 0.5 0.0 - 2.0 (%) ??? Basophils Abs 0.1 0.0 - 0.2 (x10(3)/mcL) ??? Immature Gran % 0.20 0.00 - 0.66 (%) ??? Patsy Gran Abs 0.02 0.00 - 0.05 (x10(3)/mcL) Microbiology: Blood 02/14: NGTD Urine Culture 02/14: No growth Radiology/Imaging: Echo: 1. The left ventricular chamber size is normal. Left ventricular wall thickness is normal. There is mild inferior wall hypokinesis. There is normal global left ventricular systolic function. Ejection fraction is estimated to be 55%. 2. Right ventricular chamber size, wall thickness, and systolic function are within normal limits. 3. There is mild to moderate (1-2+/4+) mitral regurgitation present. There is mild (1+/4+) tricuspid regurgitation present. 4. The estimated pulmonary artery systolic pressure is 24 mmHg. 5. See remainder of report for additional findings. Assessment/Plan: 45 yo female with remote hx of seizure disorder and h/o chronic back pain on pain medications, admitted with fever, seizure episode and confusion. Concern for infection despite unremarkable OSH LP chemistries, and was treating empirically with Vanco, Cipro, Flagyl, and acyclovir pending further evaluation and culture results. EEG shows no evidence for current siezure activity. MRI of brain showing findings consistent with PRES. OSH CSF cultures showing NGTD at 48 hours, blood and urine culturesshowing NGTD. Antibiotics stopped yesterday, but continuing on Acyclovir pending OSH HSV/VZV PCR results. MS dramatically improved the last 2 days. In regards to abdominal pain with elevated lactate level, lactate has returned to normal and CT scan of abd/pelvis unremarkable. Abdominal pain improving, diarrhea resolving off antibitoics. Will continue to monitor clinically. In regards to elevated CE's, Tn downtrending to normal and CPK elevated - ? Secondary to siezure activity vs. Cardiac demand ischemia. TTE shows preserved systolic function but some inferior WMA's. Discussed case with cardiology re: need for stress test, and given clinical scenario and low pre-testprobability for ASCVD, recommended simply re-checking echo in 4-6 weeks. Cardiology felt that siezure could contribute to WMA's and elevated CE's. Patient does, however, have significant smoking history so would have a low threshold to work-up more aggressively is symptoms develop. Plan: Neurology consulting Continue Lamictal Stop Keppra LP at OSH not impressive for bacterial infection (1 wbc, nl gluc/protein) but viral studies (enterovirus, HSV, VZV) pending - Called yesterday and cultures showing no growth at 48hours Antibiotics off Continue Acyclovir for now pending OSH CSF HSV PCR CE's elevated but trending downwards Echo showing WMA's - will need repeat Echo vs. Stress test after discharge Decrease Metoprolol to 12.5 mg po Q6hr for episodes of bradycardia Continue ASA for now Check C. Diff if continues to have diarrhea DVT PPx: SQ heparin Code Status: Full Dispo: transfer to floor today, possible D/C in next 1-2 days. Team/Pager: [phone] NITISH HAYDEN 02/16/2011 9:36 AM * Shelbie Bearden, RN - 02/16/2011 12:10 AM EDT 2000: Patient is alert and oriented x3. Pain reported in neck. Will give oxycodone when due, patient agreeable. at bedside. VS WNL. 0000: Patient desatting slightly to 90 when sleeping, 2lnc placed with good effect. Will continue to monitor. * Apoorva Bustamante RN - 02/15/2011 4:59 PM EDT CLINICAL TEACHER ASSOCIATE (CRC) Office of Care Management Apoorva Bustamante RN, CRC Phone [phone] Pager # [phone] INITIAL ASSESSMENT: REASON for HOSPITALIZATION: Per medicine note; 45 yo female with remote hx of seizure disorder and h/o chronic back pain on pain medications, admitted with fever, seizure episode and confusion. Concern for infection despite unremarkable OSH LP chemistries, but treating empirically with Vanco, Cipro, Flagyl, and acyclovir pending further evaluation and culture results. EEG shows no evidence for current siezure activity. MRI of brain showing findings consistent with PRES. OSH CSF cultures showing NGTD at 48 hours. Will stop antibiotics as there is no evidence for bacterial infection. Control blood pressure. F/u CSF viral studies and continue acyclovir for now. Neurology following. CURRENT STATUS: Pt at ISCU level of care; pt is now alert, oriented, conversant. States I dont remember a thing. Acyclovir. Keppra, lamictal. Ativan, oxycodone, zofran prn. RA O2. Etiology of episode unclear; results of testing pending. BASELINE FUNCTIONAL STATUS/SOCIAL/FAMILY SUPPORTS: Introduced self and role to pt and her ivan. Pt states they live in a trailer, 2 steps to enter. Pt states she is disabled due to her back. She is independent ADL's, however states that her does the housework. She ambulates without assistive device, but states that she holds on to thingsin the trailer, and often has a hand on her husbands arm when they are out. She is unable to ambulate distances, and states she gets depressed due to her limited mobility, as she used to be active and outdoorsy. Pt has 2 children, ages 22 and 24; states they are supportive. Pt and have a black lab, Jory. INSURANCE COVERAGE/FINANCIAL ISSUES: Medicare, [place] Medicaid, Maria Alejandra after medicaid REHAB TEAM CONSULTS: May benefit from PT for evaluation of mobility, potential new deficits; potential need for ambulation assist device. REMEDIATION PROJECT ENGINEER REFERRAL: Available if needs identified. POTENTIAL DISCHARGE NEEDS: Unclear at this time. PLAN: Will continue to follow while pt ISCU level of care. * Yusef Lowe MD - 02/15/2011 11:24 AM EDT Neurology Progress Note Patient Name: Sahra Cobb Admit Date: 02/14/2011 Attending: yonatan Patient ID: Sahra Cobb is a 45 y.o. female with remote hx of epilepsy presented with seizures and AMS. Interval History:Patient more coherent, able to provide more history this am. 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 Patient on lamictal for depression, presumably bipolar disorder. Has been not feeling well for last few weeks, no fevers or clear illness, just not feeling right. Day of admission had a severe headache (patient has hx of migraines), tried to take imitrex, vomited, took another dose, then soon after was found by after falling out of bed and had a GTC seizure lasting 90 seconds. Patient denies missing doses of any medications. She takes ativan, percocet on a daily basis. Has had trouble with HTN in the past. Was on an antihtn med, but stopped taking it recently because of low bp readings. It normally runs 90 or so diastolic. Medications: ??? lamoTRIgine 200 mg Oral Daily ??? PARoxetine 60 mg Oral QAM ??? heparin (porcine) 5,000 Units Subcutaneous Q8H VIANEY ??? docusate sodium 100 mg Oral BID ??? vancomycin 1 g Intravenous Q12H ??? ciprofloxacin 400 mg Intravenous Q12H VIANEY ??? metroNIDAZOLE 500 mg Intravenous Q8H VIANEY ??? LORazepam 0.5-1 mg Intravenous Once ??? haloperidol lactate 5 mg Intravenous Once ??? leveTIRAcetam 1 g Intravenous Q12H VIANEY ??? leveTIRAcetam 1 g Intravenous Once ??? acyclovir 10 mg/kg/dose Intravenous Q8H VIANEY Physical Exam: Vitals: Temp: [36.8 ??C (98.2 ??F)-37.8 ??C (100 ??F)] Heart Rate: [82-110] Resp: [22-32] BP: (138-160)/(88-107) SpO2: [93 %-99 %] Constitutional: Patient of apparent stated age, no acute distress CV: RRR, S1, S2, no murmur Resp: CTAB, symmetric expansion Neuro: MS: Alert, oriented, clear language, no dysarthria, follows commands CN: PERRL (?mild APD on right), EOMI, no facial asymmetry Motor: no pronator drift, 5/5 strength diffusely Reflexes: 3+ bilat bi, br, tri, pat, achilles Toes equivocal because of voluntary withdrawal. Labs: Results for orders placed during the hospital encounter of 02/14/11 (from the past 24 hour(s)) URINALYSIS WITH MICROSCOPIC Component Value Range ??? Glucose UA Negative Negative (mg/dL) ??? Protein UA Trace (*) Neg (mg/dL) ??? Bilirubin UA Negative Negative (mg/dL) ??? Urobilinogen UA Normal (mg/dL) ??? pH UA 5.5 5.0 - 8.0 ??? Blood UA Small (*) Neg ??? Ketones UA Trace (*) Neg (mg/dL) ??? Nitrite UA Negative ??? Leukocytes UA Trace (*) Neg ??? Appearance UA Clear Clear ? ? Spec [place] UA >1.035 (*) 1.002 - 1.030 ??? Color UA Yellow Yellow ??? RBC UA 1 0 - 4 (/HPF) ??? WBC UA 3 0 - 5 (/HPF) ? ? Squam Epith UA <1 <=4 (/HPF) POTASSIUM Component Value Range ??? Potassium 3.3 (*) 3.5 - 5.0 (mmol/L) Diagnostic Tests and Imaging: MRI brain official report pending, but team review shows some areas of hyperintensity in bilat occipital lobes. EEG: no subclinical seizure activity Assessment and Plan: This is a 45 y/o female with remote hx of epilepsy and hx of migraine headache presents with AMS and seizures. CSF from OSH not suggestive of infection, but PCRs pending and patient on acyclovir, cipro, flagyl, and vanco. EEG reassuring and patient has cleared today, but MRI brain concerning for posterior process. Likely PRES. Pres is associated with the clinical triad of headache, seizure, and ams. It has been associated with HTN, which the patient has suffered since admission. This is her most likely dx. -cont acyclovir until pcr for hsv returns -okay to stop keppra, would cont lamictal -monitor bp -would consider restarting patient's home lorazepam and oxycodone to avoid withdrawal -we will follow Matty Shah MD Neurology Attending I saw and evaluated the patient with the neurology team. I have reviewed the resident's history during the visit and I agree with the details as written. My physical examination confirms the resident's findings. The assessment and plan were formulated in discussion with me at the time of the visit and I agree with them as documented. Pertinent History: She had seizures and encephalopathy which seems to be resolving. Pertinent Exam: Alert and oriented, neuro exam non-focal. Pertinent Diagnostic Studies: MRI shows posterior gyriform bright signals Major issues addressed and Plan: I suspect that problem was in some way related to hypertension and multiple medications. I would favor trying to simplify her regimen, using stable rather than prn dosing. I doubt she will need keppra, but would continue Lamictal in view of seizures. MRI lesions will probably resolve. It is reasonable to continue acyclovir till Herpes PCR comes back negative, but I would stop broad spectrum antibiotic coverage. * Nitish Hayden MD - 02/15/2011 10:38 AM EDT [facility] MEDICINE DAILY PROGRESS NOTE Name: Sahra Cobb : 1965 Sex: female Problem List: No resolved problems to display. Active Hospital Problems Diagnoses ??? Seizure Priority: High ??? Fever Priority: Medium ??? Confusion Priority: Medium ??? Abdominal pain ??? Cardiac enzymes elevated Resolved Hospital Problems Diagnoses Date Resolved PMHx: Past Medical History Diagnosis Date ??? Seizures ??? Depression ??? HTN (hypertension) 24 Hour Events: More alert this AM MRI of brain performed Subjective: Reports some sharp chest pains preceding hospitalization, random, no known exacerbatingfactors. Denies current CP. Denies SOB. + diffuse abd tenderness that patient reports feels more muscular from fighting with staff yesterday. Denies current N/V. + watery diarrhea. Physical Exam: Temp: [36.7 ??C (98.1 ??F)-37.8 ??C (100 ??F)] Heart Rate: [82-110] Resp: [22-32] BP: (138-160)/(88-107) SpO2: [93 %-99 %] Gen: NAD HEENT: MMM, no oral lesions/erythema Resp: mild crackles bilat bases CV: RRR, S1/S2, no m/r/g Abd: Soft, ND, NABS, + lower abd tenderness Ext: No LE edema Skin: No rash Neuro: A&Ox3, PERRL, EOMI, uvula/palate elevate mildline, tongue midline, face symmetric, movesall 4 ext. Lines: Results for orders placed during the hospital encounter of 02/14/11 (from the past 24 hour(s)) URINALYSIS WITH MICROSCOPIC Component Value Range ??? Glucose UA Negative Negative (mg/dL) ??? Protein UA Trace (*) Neg (mg/dL) ??? Bilirubin UA Negative Negative (mg/dL) ??? Urobilinogen UA Normal (mg/dL) ??? pH UA 5.5 5.0 - 8.0 ??? Blood UA Small (*) Neg ??? Ketones UA Trace (*) Neg (mg/dL) ??? Nitrite UA Negative ??? Leukocytes UA Trace (*) Neg ??? Appearance UA Clear Clear ? ? Spec [place] UA >1.035 (*) 1.002 - 1.030 ??? Color UA Yellow Yellow ??? RBC UA 1 0 - 4 (/HPF) ??? WBC UA 3 0 - 5 (/HPF) ? ? Squam Epith UA <1 <=4 (/HPF) POTASSIUM Component Value Range ??? Potassium 3.3 (*) 3.5 - 5.0 (mmol/L) CBC (WITH DIFF) Component Value Range ??? WBC 19.1 (*) 4.0 - 10.0 (x10(3)/mcL) ??? RBC 4.27 3.93 - 5.22 (x10(6)/mcL) ??? Hemoglobin 12.9 11.2 - 15.7 (gm/dL) ??? Hematocrit 37.7 34.0 - 45.0 (%) ??? MCV 88.3 79.0 - 94.0 (fL) ??? MCH 30.2 26.6 - 32.2 (pg) ??? MCHC 34.2 32.0 - 36.5 (gm/dL) ??? Platelets 265 145 - 370 (x10(3)/mcL) ??? RDWSD 42.5 35.0 - 46.0 (fL) ??? RDWCV 13.4 10.9 - 14.4 (%) ??? MPV 10.3 9.0 - 12.0 (fL) CARDIAC ENZYMES Component Value Range ? ? Troponin-T 0.03 <=0.03 (ng/mL) ??? CK, Total 484 (*) 0 - 160 (unit/L) LACTIC ACID, PLASMA Component Value Range ??? Lactate 1.0 0.5 - 2.2 (mmol/L) COMPREHENSIVE METABOLIC PANEL (NON-FASTING) Component Value Range ??? Glucose Lvl 107 60 - 199 (mg/dL) ??? BUN 7 (*) 8 - 18 (mg/dL) ??? Creatinine 0.57 (*) 0.70 - 1.20 (mg/dL) ??? Sodium 142 135 - 145 (mmol/L) ??? Potassium 2.6 (*) 3.5 - 5.0 (mmol/L) ??? Chloride 113 (*) 98 - 107 (mmol/L) ??? CO2 19 (*) 22 - 31 (mmol/L) ??? Anion Gap 10 5 - 15 (mmol/L) ??? Calcium 7.7 (*) 8.5 - 10.5 (mg/dL) ??? Total Protein 6.1 (*) 6.4 - 8.3 (gm/dL) ??? Albumin 3.5 3.2 - 5.2 (gm/dL) ??? AST 30 0 - 30 (unit/L) ??? ALT 22 0 - 30 (unit/L) ??? Alk Phos 86 40 - 104 (unit/L) ??? Total Bilirubin 0.6 0.2 - 1.3 (mg/dL) ??? Bili, Direct 0.1 0.0 - 0.3 (mg/dL) ? ? Estimated GFR >60 >=60 REFLEX LAB-A-DIFF Component Value Range ??? Neutrophils % 77.0 (*) 34.0 - 71.0 (%) ??? Neutr Abs (ANC) 14.69 (*) 1.50 - 6.30 (x10(3)/mcL) ??? Lymphocytes % 13.9 (*) 19.0 - 53.0 (%) ??? Lymphocytes Abs 2.6 1.0 - 3.6 (x10(3)/mcL) ??? Monocytes % 8.7 4.0 - 13.0 (%) ??? Monocyte Abs 1.7 (*) 0.2 - 1.0 (x10(3)/mcL) ??? Eosinophils % 0.1 0.0 - 7.0 (%) ??? Eosinophils Abs 0.0 0.0 - 0.5 (x10(3)/mcL) ??? Basophils % 0.1 0.0 - 2.0 (%) ??? Basophils Abs 0.0 0.0 - 0.2 (x10(3)/mcL) ??? Immature Gran % 0.20 0.00 - 0.66 (%) ??? Patsy Gran Abs 0.04 0.00 - 0.05 (x10(3)/mcL) Microbiology: Blood 02/14: NGTD Urine Culture 02/14: No growth Radiology/Imaging: CT head: Examination is somewhat limited given the degree of motion but no acute processes identified. CT neck: No acute processes identified within the neck. CT Abd/pelvis: 1. I do not see an obvious cause for the patient's fever. 2. There does appear to be a slight thickening of the sigmoid colon and rectum. In a patient with a clinical presentation suggestive of colitis, the CT images would be consistent. Without a strongly suggestive history, I would consider the colon to be normal. 3. Extensive vascular calcification. I do not see evidence of embolic disease. CXR: Allowing for the portable technique, the cardiac size is within normal limits. I do not see evidence of failure or pneumonia. Postsurgical changes are seen at the cervical spine and the right acromioclavicular joint. MRI brain: T2 signal alteration of the cortex in the adjacent subcortical white matter in a posterior distribution. The most likely diagnosis is PRES (posterior reversible encephalopathy syndrome). Less likely considerations would be encephalitis and seizure activity. EEG 02/15: INTERPRETATION: This EEG is abnormal due to the presence of diffuse arrhythmic slowing. CLINICAL CORRELATION: This tracing is consistent with an encephalopathy Assessment/Plan: 45 yo female with remote hx of seizure disorder and h/o chronic back pain on pain medications, admitted with fever, seizure episode and confusion. Concern for infection despite unremarkable OSH LP chemistries, but treating empirically with Vanco, Cipro, Flagyl, and acyclovir pending further evaluation and culture results. EEG shows no evidence for current siezure activity. MRI of brain showing findings consistent with PRES. OSH CSF cultures showing NGTD at 48 hours. Will stop antibiotics as there is no evidence for bacterial infection. Control blood pressure. F/u CSF viral studies and continue acyclovir for now. Neurology following. In regards to abdominal pain with elevated lactate level, lactate has returned to normal and CT scan of abd/pelvis unremarkable. Will stop Cipro/Flagyl and monitor. Also with report of diarrhea, so will check C. Diff. In regards to elevated CE's, Tn downtrending to normal and CPK elevated - ? Secondary to siezure activity vs. Cardiac demand ischemia. Will check echo to eval for WMA's that might be indicative of more serious underlying ASCVD. Plan: Neurology consult Cassy per neurology recs LP at OSH not impressive for bacterial infection (1 wbc, nl gluc/protein) but viral studies (enterovirus, HSV, VZV) pending - called today and culture showing No growth, viral studies pending. CT scan of abd/pelvis unremarkable and lactate has normalized D/C Cipro/Flagyl and Vanco Continue Acyclovir for now pending OSH CSF HSV PCR HIV and Hep serologies negative CE's elevated but trending downwards Echo given elevation on Tn and CPK Metoprolol 25 mg po Q6hr for B/P control in setting of elevated CE's Continue ASA for now Check C. diff K 2.6 - replace with PO and IV KCL DVT PPx: SQ heparin Code Status: Full Dispo: Unknown Team/Pager: Luke HAYDEN 02/15/2011 1:01 PM * Jennyfer Robin RN - 02/14/2011 6:30 PM EDT Patient beginning to open eyes spontaneously and talk to her , appearing to become less confused and agitated. [place] vest and upper soft limb restraints removed. Will continue to monitor. * Jennyfer Robin RN - 02/14/2011 3:00 PM EDT Patient non-verbal, unable to follow commands, and restless all day. Patient has upper arm soft limb restraints and gama vest on. RN and PCT accompanied patient to xray and CT scan today. Patient extremely restless and agitated in CT scan, Ativan and Haldol given. Continuing with antibiotics, willcontinue to monitor. documented in this encounter H&P Notes * Alyssa Beltran MD - 02/14/2011 3:49 AM EDT Inpatient Hospital Medicine - Admission Note Problem List: There are no hospital problems to display for this patient. There are no active non-hospital problems to display for this patient. ID: 45 y.o. Female presents to [facility] with mental status change and SZ History of Present Illness: HPI Presented to OSH with seizure episode. Experienced LOS and appeared confused after. Did have incontinence of bowel/bladder per transfer note. Witnessed by . Has history of seizure as teenager,on lamictal. On arrival to ISCU she is confused and aggitated. Could not get history from the patient. But and son then arrived and were able to give some history. Per the , patient had not been feeling herself for about 2-3 months and he noted she had a tremor (which she continues to have now), he states this progressed over that time. He said a week ago she seemed a little confused to him butthen returned to normal. Last night, she became very confused all of a sudden and didn't recognize him or her son, was curled up in a ball in the room. Then she had a witnessed seizure as above and was taken to local hospital. The does not believe she had any fever during the preceeding time. He is worried about withdrawal as she was on oxycodone and had not taken it a few days. I didn;t get a history of her being a drinker or drug user from him though her tox screen at OSH did test positive for MJ. OSH got: ativan 0.5mg, NS, ASA, nitroglycerin, dexamethasone, ceftaz, vanco LP was done: see below CT head was done: no acute findings Review of Systems: Review of Systems Unable to obtain due to mental status Past Medical and Surgical History: No past medical history on file. Back pain, has had surgeries on back with plate in place in cervical spine No past surgical history on file. Prior To Admission Medications: Prescriptions prior to admission Medication Sig Dispense Refill ??? OXYcodone-acetaminophen (PERCOCET) 10-325 mg per tablet 1 Tablet(s), PO, Four times daily PRN ??? estrogens, conjugated, (PREMARIN) 1.25 mg tablet ??? PARoxetine (PAXIL) 40 mg tablet ??? atenolol (TENORMIN) 50 mg tablet ??? fentaNYL (DURAGESIC) 25 mcg/hr 25MCG/1h = 1 Patch(es), TD, Q72hrs ??? ezetimibe-simvastatin (VYTORIN 10-20) 10-20 mg per tablet ??? pregabalin (LYRICA) 150 mg capsule ??? senna-docusate (SENOKOT-S) 8.6-50 mg per tablet 1-2 Tablet(s), PO, Twice daily,PRN ??? polyethylene glycol (MIRALAX) 17 gram packet 17GRAM = 1 Packet(s), PO, Once daily Allergies: Allergies Allergen Reactions ??? Amoxicillin ??? Sulfa (Sulfonamide Antibiotics) ??? Ampicillin CIS - ITCHY ??? Codeine Phos CIS - Itchy Family History: No family history on file. Social History and Habits: History Social History ??? Marital Status: Spouse Name: N/A Number of Children: N/A ??? Years of Education: N/A Occupational History ??? Not on file. Social History Main Topics ??? Smoking status: Not on file ??? Smokeless tobacco: Not on file ??? Alcohol Use: Not on file ??? Drug Use: Not on file ??? Sexually Active: Not on file Other Topics Concern ??? Not on file Social History Narrative ??? No narrative on file denies tob or ivdu Unable to obtain history from patient Immunizations: There is no immunization history on file for this patient. Physical Exam: Last Set of Vitals and range of vitals over past 24 hours: Last value Range last 24 hrs Temperature Heart Rate Heart Rate: -- Blood Pressure BP: ()/() Respiratory Rate Resp: -- SpO2 SpO2: -- Last value Range last 24 hrs Temperature Temp: 38.2 ??C (100.8 ??F) Temp: [38.2 ??C (100.8 ??F)] Heart Rate Heart Rate: 98 Heart Rate: [98] Blood Pressure BP: -- Respiratory Rate Resp: 24 Resp: [24] SpO2 SpO2: 99 % SpO2: [99 %] Physical Exam aggitated Face and chest are flushed Awakens but is not making sense Few old scars on legs Abdomen is soft Heart sounds without m, regular Lungs CTA b/l Neck difficult to examine but appears supple Laboratory (Last 24 Hours): No results found for this or any previous visit (from the past 24 hour(s)). OSH: tox screen: benzo, oxycodone, marajuana pos (urine) UA normal, +3 blood Wbc 23.2 N90 ALP 174, AST 56 Troponin 0.18 CSF: wbc 1, rbc 3, lympho 1, gluc 90 No orgs Protein 32 preg test neg Microbiology: Blood Cultures: ordered Urine Cultures: ordered Radiology: CXR - CT - outside head CT, noncontrast without acute findings Ultrasound - MRI - Other Studies: EKG - Echocardiogram - Vascular Studies - Pulmonary Report - Endoscopy - Assessment: 45F with remote hx of seizure disorder with chronic back pain on pain medications, admitted with seizure episode along with (per ) a more subacute process over 2-3 months prior. She also has had fever. Her drug tox screen was positive so one wonders about etoh/du as well. Her mental state and delerium could also be from infection (bacteremia, abd is benign but LFTs are up mildly, LEAD CYTOGENETIC TECHNOLOGIST). Hertrop was also elevated, treated with ASA, nitro at OSH. In terms of her mental status and fever, her LP was not impressive for bacterial infection with 1 wbc. MRI will be helpful to look closer at the brain. CT head at OSH was not revealing. Will place neurology consult for her, she would need EEG,MRI imaging and further workup of her ongoing neurol symptoms. Check tox screen for ?toxin etiology. She receieved vanco and ceftaz prior to transfer here (allergy to amox). Plan: ?? Admit to medicine ?? Telemetry, ISCU status ?? Montesinos culture: blood, UA, urine cx, CXR, f/u LP culture from OSH ?? LP there was not impressive for bacterial infection (1 wbc, nl gluc/protein) but would add on viral studies (enterovirus, HSV, VZV) ?? Also test for HIV ?? Repeat cardiac enzymes, telemetry ?? Got ASA. See what her next set of cardiac enz look like. ?? Neurology consult will be important ?? Serum drug tox screen ?? Given her fever and concern for infection will continue antibiotics for now with vancomycin and ceftriaxone, following up LEAD CYTOGENETIC TECHNOLOGIST cultures from OSH, as well as cultures we will obtain here. ?? Physical Therapy referral ?? DVT Prophylaxis ?? If currently a smoker - advised about smoking cessation and will provide smoking cessation material and support. ?? Pneumovax and Influenza Immunizations given as needed. ?? Unable to discuss code status with patient due to mental status, but will need to A copy of this document will be sent to the patient's Primary Care Physician and/or Referring Physician. ALYSSA BELTRAN 02/14/2011 Addendum: New labs reviewed: Lactate is elevated, trop is coming down to nearly nl, febrile here. LFTs also mildly elevated. Will check hepatitis serol. ALP is elevated--?GB issues. Worry about intra abd source given lack of findings on LP? Will cover with rahat trevizo and amy given her allergies. Would get CT of abd/pelvisto look for abd process. also says she has complained of neck pain last few days and she has lami and hardware there, so will add on CT neck. documented in this encounter Procedure Notes * Provider, Scanning - 02/18/2011 3:23 PM EDTAssociated Order(s): SCAN DOC: DONOR RECRUITMENT MANAGER * Douglas Altamirano MD - 02/15/2011 8:22 AM EDTAssociated Order(s): EEG LESS THAN I HR Procedure(s): EEG, EXTENDED MONITORING; UP TO ONE HOUR PRFM Pre-Procedure Diagnose(s): Altered level of consciousness Post-Procedure Diagnose(s): Altered level of consciousness Routine Adult EEG Report Date of Service: 02/14/2011 Interpreting Physician: Douglas Altamirano MD [Attending] Ronnie Polk III, MD [Resident] Referring Physician: Yusef Lowe BRIEF HISTORY/INDICATION FOR STUDY: 45 yo F with a history of an ill-defined seizure disorder since she was a teenager who presents with an altered sensorium in the setting of metabolic derangements. MEDICATIONS: Lamictal 200mg qd Paroextine 60mg qd Lorazepam Haldol Vancomycin Ciprofloxacin Metronidazole PRIOR EEG: No previous EEG reports were available. METHODS: A 21 channel digitized electroencephalogram was performed in the [facility] Clinical Neurophysiology Laboratory. The 10/20 international system of electrode placement was used and bipolar and referential electrode montages were recorded. The patient was recorded during sleep/coma only and during the activation procedure(s) of photic stimulation. Video was recorded during the session. The duration of the recording was 30 minutes. DESCRIPTIVE TEXT: There was no identifiable background rhythm and no idenitifiable state change. The tracing consisted of diffuse arrhythmic delta along with admixed theta frequencies. Seen at 16:07 during photic stimulation was an approx 30sec episode of head shaking consisting of subtle flexion and extension of the head as well as RLE shaking which appeared rhythmic. There was no electrographic correalate with this episode. There were no significant asymmetries of background activity noted. Stage II sleep was not achieved despite provocative measures on the part of the diligent dairy technician. No focal lateralizing epileptiform abnormalities were recorded. Photic Stimulation Photic stimulation using a step-milton increase in photic frequency from 1-21 Hertz resulted in no driving responses or appearance of abnormal activity. INTERPRETATION: This EEG is abnormal due to the presence of diffuse arrhythmic slowing. CLINICAL CORRELATION: This tracing is consistent with an encephalopathy This test was interpreted in the presence of Rnonie Polk III, MD and I am in full agreement with the description and impression noted above. documented in this encounter Miscellaneous Notes * Miscellaneous - [place], [place] - 02/19/2011 10:49 AM EDT * Discharge Summary - Nitish Hayden MD - 02/17/2011 12:15 PM EDT [facility] Hospital Medicine - Attending Day of Discharge Documentation Discharge diagnosis Active Hospital Problems Diagnoses ??? PRES (posterior reversible encephalopathy syndrome) Resolved Hospital Problems Diagnoses Date Resolved ??? Seizure 02/17/2011 Priority: High ??? Fever 02/17/2011 Priority: Medium ??? Confusion 02/17/2011 Priority: Medium ??? Abdominal pain 02/17/2011 ??? Cardiac enzymes elevated 02/17/2011 Secondary Issues There are no active non-hospital problems to display for this patient. The patient has been seen, examined and is ready for discharge. Plans B/P control with Toprol XL ASA daily Recommend outpatient stress test F/u with PCP and neurology Please see the Discharge Summary for complete details <30 minutes were spent in face to face patient care. * Discharge Summary - Nitish Hayden MD - 02/17/2011 12:11 PM EDT Inpatient Hospital Medicine - Discharge Summary Patient Name: Sahra Cobb Patient Age: 45 y.o. Birthdate: 1965 Admit date: 02/14/2011 Discharge date and time: No discharge date for patient encounter. Attending Physician: Nitish Hayden MD Discharge Diagnoses (Hospital Problems) and Secondary Diagnoses (Chronic Problems): Active Hospital Problems Diagnoses ??? PRES (posterior reversible encephalopathy syndrome) Resolved Hospital Problems Diagnoses Date Resolved ??? Seizure 02/17/2011 Priority: High ??? Fever 02/17/2011 Priority: Medium ??? Confusion 02/17/2011 Priority: Medium ??? Abdominal pain 02/17/2011 ??? Cardiac enzymes elevated 02/17/2011 There are no active non-hospital problems to display for this patient. Operations/Major Procedures: Operations: * No surgery found * Other Major Procedures: None History of Presentation: Presented to OSH with seizure episode. Experienced LOS and appeared confused after. Did have incontinence of bowel/bladder per transfer note. Witnessed by . Has history of seizure as teenager,on lamictal. On arrival to [facility] she is confused and aggitated. Could not get history from the patient. But and son then arrived and were able to give some history. Per the , patient had not been feeling herself for about 2-3 months and he noted she had a tremor (which she continues to have now), he states this progressed over that time. He said a week ago she seemed a little confused to him butthen returned to normal. Last night, she became very confused all of a sudden and didn't recognize him or her son, was curled up in a ball in the room. Then she had a witnessed seizure as above and was taken to local hospital. The does not believe she had any fever during the preceeding time. He is worried about withdrawal as she was on oxycodone and had not taken it a few days. I didn;t get a history of her being a drinker or drug user from him though her tox screen at OSH did test positive for MJ. OSH got: ativan 0.5mg, NS, ASA, nitroglycerin, dexamethasone, ceftaz, vanco LP was done: see below CT head was done: no acute findings Hospital Course: Fever, sieuzre, MS changes, Siezure: Patient was admitted to the medicine service [facility] status and placed on tele, montesinos cultured and started empirically on Vancomycin, Cipro, Flagyl, and Acyclovir pending cultures and further infectious work-up. [facility] was called and requested to add on CSF HSV PCR, VZV PVR, and arbovirus studies. Given LFT abnormalities, Hep B and C and HIV studies were checked. Lactate was also checked on admission and was elevated at 4.2 (returned to normal after a couple days). Due to concern foroccult infection, patient underwent a CT scan of the Abd/pelvis, and CT scan of Head/neck due to report of metal plate in neck. Urine drug screen was also obtained and C. Diff was checked as reportedbelow. Neurology was consulted and patient was loaded with Keppra in addition to her home dose Lamictal. MRI was obtained. OSH CSF culture returned negative after 48 hours, blood and urine cultures were unremarkable, and CT scans of Head/Neck/Abd/Pelvis did not show evidence of infection. The Cipro/Flagyl and Vanco were stopped and patient remained afebrile. Acyclovir was continued pending CSF PCR results. MRI result returned showing findings consistent with PRES, which neurology felt was probably due to HTN. Within a couple days of admission, mental status dramatically cleared and patient remained A&Ox3 for the remainder of the hospitalization. Blood pressure was controlled with metoprolol and at discharge SBP was in the 110-120 range. At discharge, [facility] was contacted about CSF PCR studies and only the HSV PCR had been ordered, which was negative for HSV 1 and 2. CSF VZV PCR was added at that time and pending at discharge. Acyclovir was stopped as MS changes were felt to be unlikely related to HSV or VZV. Patient will follow up closely with PCP and neurology. Elevated CE's, Chest Pain: Also of note, cardiac enzymes were elevated at OSH and on admission to [facility]. They were cycled and trended downwards. As mental status cleared, patient reported non-specific sharp left sided chest pains with ambulation and at rest. TTE was obtained and showed preserved EF, but with mild inferior WMA's. Case was discussed with cardiology who thought that elevated CE's and WMA's on Echo could be related to seizure activity and suggested simple repeat outpatient echo in 4-6 weeks. Prior to discharge, however, patient reported continued sharp left sided CP. EKG on day of discharge was re-checked and showed NSR without ischemic changes, but with inferior Q-waves. CE's were also re-checked and Tn w as neg with continued down-trending CPK. There was no evidence for acute ischemia, and patient reported that chest pain symptoms had been occuring for 2- 3 years. Patient remained hemodynamically stable. She will be discharged on ASA and metoprolol and with PCP follow up. Would recommend outpatient stress test in next few weeks to help risk-stratify, jeferson since patient is an ongoing tobacco user. Important Studies and Lab Data: Labs: Recent Results (from the past 72 hour(s)) URINE CULTURE Component Value Range ??? Urine Culture Value: Patient Name: SAHRA COBB Ordered By: ASH LEROY MR#: [id number] LOC: [facility] /Sex: 1965 (45 years), Female PROCEDURE: Urine Culture SOURCE: [facility] COLLECTED: 02/14/2011 17:27 STARTED: 02/14/2011 18:27 FINAL REPORT Final Report Verified:02/15/2011 15:08 No growth (Less than 1,000 cfu/ml). URINALYSIS WITH MICROSCOPIC Component Value Range ??? Glucose UA Negative Negative (mg/dL) ??? Protein UA Trace (*) Neg (mg/dL) ??? Bilirubin UA Negative Negative (mg/dL) ??? Urobilinogen UA Normal (mg/dL) ??? pH UA 5.5 5.0 - 8.0 ??? Blood UA Small (*) Neg ??? Ketones UA Trace (*) Neg (mg/dL) ??? Nitrite UA Negative ??? Leukocytes UA Trace (*) Neg ??? Appearance UA Clear Clear ? ? Spec [place] UA >1.035 (*) 1.002 - 1.030 ??? Color UA Yellow Yellow ??? RBC UA 1 0 - 4 (/HPF) ??? WBC UA 3 0 - 5 (/HPF) ? ? Squam Epith UA <1 <=4 (/HPF) POTASSIUM Component Value Range ??? Potassium 3.3 (*) 3.5 - 5.0 (mmol/L) CBC (WITH DIFF) Component Value Range ??? WBC 19.1 (*) 4.0 - 10.0 (x10(3)/mcL) ??? RBC 4.27 3.93 - 5.22 (x10(6)/mcL) ??? Hemoglobin 12.9 11.2 - 15.7 (gm/dL) ??? Hematocrit 37.7 34.0 - 45.0 (%) ??? MCV 88.3 79.0 - 94.0 (fL) ??? MCH 30.2 26.6 - 32.2 (pg) ??? MCHC 34.2 32.0 - 36.5 (gm/dL) ??? Platelets 265 145 - 370 (x10(3)/mcL) ??? RDWSD 42.5 35.0 - 46.0 (fL) ??? RDWCV 13.4 10.9 - 14.4 (%) ??? MPV 10.3 9.0 - 12.0 (fL) CARDIAC ENZYMES Component Value Range ? ? Troponin-T 0.03 <=0.03 (ng/mL) ??? CK, Total 484 (*) 0 - 160 (unit/L) LACTIC ACID, PLASMA Component Value Range ??? Lactate 1.0 0.5 - 2.2 (mmol/L) COMPREHENSIVE METABOLIC PANEL (NON-FASTING) Component Value Range ??? Glucose Lvl 107 60 - 199 (mg/dL) ??? BUN 7 (*) 8 - 18 (mg/dL) ??? Creatinine 0.57 (*) 0.70 - 1.20 (mg/dL) ??? Sodium 142 135 - 145 (mmol/L) ??? Potassium 2.6 (*) 3.5 - 5.0 (mmol/L) ??? Chloride 113 (*) 98 - 107 (mmol/L) ??? CO2 19 (*) 22 - 31 (mmol/L) ??? Anion Gap 10 5 - 15 (mmol/L) ??? Calcium 7.7 (*) 8.5 - 10.5 (mg/dL) ??? Total Protein 6.1 (*) 6.4 - 8.3 (gm/dL) ??? Albumin 3.5 3.2 - 5.2 (gm/dL) ??? AST 30 0 - 30 (unit/L) ??? ALT 22 0 - 30 (unit/L) ??? Alk Phos 86 40 - 104 (unit/L) ??? Total Bilirubin 0.6 0.2 - 1.3 (mg/dL) ??? Bili, Direct 0.1 0.0 - 0.3 (mg/dL) ? ? Estimated GFR >60 >=60 REFLEX LAB-A-DIFF Component Value Range ??? Neutrophils % 77.0 (*) 34.0 - 71.0 (%) ??? Neutr Abs (ANC) 14.69 (*) 1.50 - 6.30 (x10(3)/mcL) ??? Lymphocytes % 13.9 (*) 19.0 - 53.0 (%) ??? Lymphocytes Abs 2.6 1.0 - 3.6 (x10(3)/mcL) ??? Monocytes % 8.7 4.0 - 13.0 (%) ??? Monocyte Abs 1.7 (*) 0.2 - 1.0 (x10(3)/mcL) ??? Eosinophils % 0.1 0.0 - 7.0 (%) ??? Eosinophils Abs 0.0 0.0 - 0.5 (x10(3)/mcL) ??? Basophils % 0.1 0.0 - 2.0 (%) ??? Basophils Abs 0.0 0.0 - 0.2 (x10(3)/mcL) ??? Immature Gran % 0.20 0.00 - 0.66 (%) ??? Patsy Gran Abs 0.04 0.00 - 0.05 (x10(3)/mcL) C. DIFFICILE SCREEN Component Value Range ??? C Diff Screen Negative Negative ECHOCARDIOGRAM TRANSTHORACIC Component Value Range ??? EF 55 VANCOMYCIN, TROUGH Component Value Range ??? Vanc Trough 7.5 (mg/L) POTASSIUM Component Value Range ??? Potassium 4.6 3.5 - 5.0 (mmol/L) CBC (WITH DIFF) Component Value Range ??? WBC 12.2 (*) 4.0 - 10.0 (x10(3)/mcL) ??? RBC 4.45 3.93 - 5.22 (x10(6)/mcL) ??? Hemoglobin 13.2 11.2 - 15.7 (gm/dL) ??? Hematocrit 40.1 34.0 - 45.0 (%) ??? MCV 90.1 79.0 - 94.0 (fL) ??? MCH 29.7 26.6 - 32.2 (pg) ??? MCHC 32.9 32.0 - 36.5 (gm/dL) ??? Platelets 264 145 - 370 (x10(3)/mcL) ??? RDWSD 43.7 35.0 - 46.0 (fL) ??? RDWCV 13.2 10.9 - 14.4 (%) ??? MPV 10.3 9.0 - 12.0 (fL) BMP W/FASTING GLUCOSE Component Value Range ??? Glucose Fasting 104 (*) 65 - 99 (mg/dL) ??? BUN 10 8 - 18 (mg/dL) ??? Creatinine 0.70 0.70 - 1.20 (mg/dL) ??? Sodium 138 135 - 145 (mmol/L) ??? Potassium 4.4 3.5 - 5.0 (mmol/L) ??? Chloride 108 (*) 98 - 107 (mmol/L) ??? CO2 23 22 - 31 (mmol/L) ??? Anion Gap 7 5 - 15 (mmol/L) ??? Calcium 9.3 8.5 - 10.5 (mg/dL) ? ? Estimated GFR >60 >=60 MAGNESIUM Component Value Range ??? Magnesium 0.83 0.69 - 1.07 (mmol/L) PHOSPHORUS Component Value Range ??? Phosphorus 2.3 (*) 2.5 - 4.5 (mg/dL) REFLEX LAB-A-DIFF Component Value Range ??? Neutrophils % 58.1 34.0 - 71.0 (%) ??? Neutr Abs (ANC) 7.09 (*) 1.50 - 6.30 (x10(3)/mcL) ??? Lymphocytes % 31.3 19.0 - 53.0 (%) ??? Lymphocytes Abs 3.8 (*) 1.0 - 3.6 (x10(3)/mcL) ??? Monocytes % 8.7 4.0 - 13.0 (%) ??? Monocyte Abs 1.1 (*) 0.2 - 1.0 (x10(3)/mcL) ??? Eosinophils % 1.2 0.0 - 7.0 (%) ??? Eosinophils Abs 0.2 0.0 - 0.5 (x10(3)/mcL) ??? Basophils % 0.5 0.0 - 2.0 (%) ??? Basophils Abs 0.1 0.0 - 0.2 (x10(3)/mcL) ??? Immature Gran % 0.20 0.00 - 0.66 (%) ??? Patsy Gran Abs 0.02 0.00 - 0.05 (x10(3)/mcL) EKG 12-LEAD Component Value Range ??? Ventricular rate 62 (BPM) ??? Atrial Rate 62 (BPM) ??? P-R Interval 144 (ms) ??? QRS Duration 82 (ms) ??? Q-T Interval 470 (ms) ??? QTC Calculated (Bezet) 477 (ms) ??? Calculated P [place] 44 (degrees) ??? Calculated T [place] 27 (degrees) ??? INTERPRETATION Value: Normal sinus rhythm Normal ECG When compared with ECG of 14-FEB-2011 05:01, Vent. rate has decreased BY 30 BPM Confirmed by MD Parker, John Barnes ([id number]) on 02/17/2011 9:07:50 AM CARDIAC ENZYMES Component Value Range ? ? Troponin-T <0.03 <=0.03 (ng/mL) ??? CK, Total 318 (*) 0 - 160 (unit/L) Tn 0.05, 0.03, < 0.03 CPK 506, 484, 318 C. Diff: Negaitve Latate: 4.1 >> 1.0 HIV: Neg Hep B and C: Neg Urine Drug: Drug of Abuse, Benzo Conf, U GC/MS Confirmation - Positive Benzodiazepine Lorazepam 396 ng/mL Cutoff: <100 Nordiazepam Negative ng/mL Cutoff: <100 Oxazepam Negative ng/mL Cutoff: <100 Temazepam Negative ng/mL Cutoff: <100 OD-Frwef-Gklqzzyiiw Negative ng/mL Cutoff: <100 6-CZ-Octrbtminb Negative ng/mL Cutoff: <100 2-TA-Cpzfubfwjkhxs Negative ng/mL Cutoff: <50 Alpha OH-Alprazolam 168 ng/mL Cutoff: <100 Phrhe-UM-Qzpkmjqqw Negative ng/mL Cutoff: <100 Drug of Abuse, THC Conf, U GC/MS Confirmation - Positive THC THC Carboxylic Acid 360 ng/mL Cutoff: <3 [facility] Drug Screen, U Amphetamines Negative ng/mL Cutoff: 1000 MDMA (Ecstasy) Negative ng/mL Cutoff: 500 Barbiturates Negative ng/mL Cutoff: 200 Benzodiazepines Positive ng/mL Cutoff: 200 Drug confirmation ordered by reflex. Cocaine Metabolite Negative ng/mL Cutoff: 300 Methadone Negative ng/mL Cutoff: 300 Opiates Negative ng/mL Cutoff: 300 Phencyclidine Negative ng/mL Cutoff: 25 Propoxyphene Negative ng/mL Cutoff: 300 Tetrahydrocannabinols Positive ng/mL Cutoff: 50 Drug confirmation ordered by reflex. Ethanol Negative mg/dL Cutoff: 10 Confirmation - Opiates Positive Discrepancy noted between immunoassay result and GC/MS result. The GC/MS result is the definitive result. Codeine Negative ng/mL <100 Hydrocodone Negative ng/mL <100 Hydromorphone Negative ng/mL <100 Morphine Negative ng/mL <100 Oxycodone Negative ng/mL <100 Oxymorphone 189 ng/mL <100 Microbiology: Blood Culture 02/14: NGTD Urine [place] 02/14: No growth OSH CSF Culture: No growth at 24 or 48 hours OSH CSF HSV PCR: Negative for HSV 1 or HSV 2 Studies: EEG: INTERPRETATION: This EEG is abnormal due to the presence of diffuse arrhythmic slowing. CLINICAL CORRELATION: This tracing is consistent with an encephalopathy Echo: 1. The left ventricular chamber size is normal. Left ventricular wall thickness is normal. There is mild inferior wall hypokinesis. There is normal global left ventricular systolic function. Ejection fraction is estimated to be 55%. 2. Right ventricular chamber size, wall thickness, and systolic function are within normal limits. 3. There is mild to moderate (1-2+/4+) mitral regurgitation present. There is mild (1+/4+) tricuspid regurgitation present. 4. The estimated pulmonary artery systolic pressure is 24 mmHg. 5. See remainder of report for additional findings. CXR: Allowing for the portable technique, the cardiac size is within normal limits. I do not see evidence of failure or pneumonia. Postsurgical changes are seen at the cervical spine and the right acromioclavicular joint. CT Head: FINDINGS: This examination is marred by patient motion. Three separate scans were obtained through the head because of patient movement. No hemorrhages, masses, mass effect, or extraaxial collections are identified. No osseous abnormalities detected. The ventricles and sulci are of proportional size. CT Neck: No lymphadenopathy or masses identified. Patient is status post C5 through C7 anterior fusion of the cervical spine. The pharynx, larynx, and hypopharynx appear normal. CT Abd//Pelvis: 1. I do not see an obvious cause for the patient's fever. 2. There does appear to be a slight thickening of the sigmoid colon and rectum. In a patient with a clinical presentation suggestive of colitis, the CT images would be consistent. Without a strongly suggestive history, I would consider the colon to be normal. 3. Extensive vascular calcification. I do not see evidence of embolic disease. MRI Brain: T2 signal alteration of the cortex and the adjacent subcortical white matter in a posterior distribution. The most likely diagnosis is PRES (posterior reversible encephalopathy syndrome). Less likely considerations would be encephalitis and seizure activity. Pending Studies and Lab Data: OSH CSF VZV PCR (added on the day of discharge) Final Blood Culture results Discharge Conditions/Prognosis: MS cleared, afebrile, blood pressure stable Discharge to: Home Discharge Medications: Current Discharge Medication List New Meds Details aspirin 81 mg Take 81 mg by mouth daily. Qty: 30 tablet Refills: metoprolol succinate (TOPROL-XL) 50 mg Take 50 mg by mouth daily. Qty: 30 tablet Refills: 12 Continued medications, unchanged Details OXYcodone (ROXICODONE) 15 mg Take 15 mg by mouth every 4 hours as needed. Qty: Refills: docusate sodium (COLACE) 100 mg Take 100 mg by mouth daily as needed. Qty: Refills: PARoxetine (PAXIL) 60 mg Take 60 mg by mouth every morning. Qty: Refills: lamoTRIgine (LAMICTAL) 200 mg Take 200 mg by mouth daily. Qty: Refills: SUMAtriptan (IMITREX) 100 mg Take 100 mg by mouth as needed. Qty: Refills: ALPRAZolam (XANAX) 1 mg Take 1 mg by mouth nightly as needed. Qty: Refills: QUEtiapine (SEROQUEL) 50 mg Take 50 mg by mouth nightly as needed. Qty: Refills: Updated Allergies/ADRs: Allergies Allergen Reactions ??? Amoxicillin ??? Sulfa (Sulfonamide Antibiotics) ??? Ampicillin CIS - ITCHY ??? Codeine Phos CIS - Itchy Follow-up Recommendations for Providers: - Recommend cardiac stress test in next few weeks - Evaluate for smoking cessation - Evaluate for blood pressure control - Evaluate for ongoing chest pain - Please ensure follow up with neurology Instructions Given to Patient at Discharge: Provider Instructions Instruction after leaving the hospital Why you were hospitalized: Seizure and confusion Call your doctor or seek medical attention if you develop the following: Recurrent seizure, worsening confusion or tremors, chest pain, shortness of breath, abdominal pain. Activity level: Per normal routine Diet: low fat, low cholesterol diet Driving: No driving until re-evaluated by a doctor Shower/Bath: Per normal routine Wound Care: N/A Home Oxygen therapy: None needed Specific instructions related to your condition: Follow-up Appointments after Discharge Provider and Service Date Time Location Dr. Rudolph (Primary Care) 02/25 8:[address] Primary Care Office [address] Shah (neurology) Friday 03/09 11:00 AM [facility] Neurology 3C Your Inpatient Medical Team at [facility] Name(s) of your inpatient provider(s): Dr. Nitish Hayden For questions regarding issues relating to your hospitalization on the Medical Service, please contact your inpatient physician through the [facility] [employer] . Issues after hours and on weekends will be handled by the Hospitalist staff on-call. Your Primary Care Provider TRIP PERRY MD General Instructions None Future Appointments and Orders Future Appointments: Provider: Department: Dept Phone: Center: 03/09/2011 10:45 AM Vinh Cohn MD [facility] Neurology [phone] [facility] Joint Appt Neurology Nurse Visit [facility] Neurology [phone] [facility] 03/09/2011 11:00 AM Matty Shah MD [facility] Neurology [phone] [facility] Provider Contact Information: Dr. Nitish Hayden [phone] Discharge References/Attachments: Discharge References/Attachments None For questions regarding this document or issues relating to this hospitalization on the Medical Service, please contact your inpatient physician through the [facility] [employer] . Issues afterhours and on weekends will be handled by the Hospitalist staff on-call. Signed: NITISH HAYDEN 02/17/2011 * Consult Note - Yusef Lowe MD - 02/16/2011 1:47 PM EDT Neurology Progress Note Patient Name: Sahra Cobb Admit Date : 02/14/2011 Attending: Dr. Lowe Patient ID: Sahra Cobb is a 45 y.o. female with remote hx of epilepsy who presented with seizures and AMS. Interval History: Patient is alert, No complaints overnight. Left arm weakness old from old cervical disc surgery. Patient reports feeling more awake. No headache. No new weakness or numbness. No other complaints. -No fevers since discontinuing vancomycin, cipro flagyl. Medications: ??? metoprolol tartrate 12.5 mg Oral Q6H VIANEY ??? potassium chloride with lidocaine 10 mEq Intravenous Q1H ??? potassium chloride SA 40 mEq Oral Q2H ??? DISCONTD: metoprolol tartrate 25 mg Oral Q6H VIANEY ??? lamoTRIgine 200 mg Oral Daily ??? PARoxetine 60 mg Oral QAM ??? heparin (porcine) 5,000 Units Subcutaneous Q8H VIANEY ??? docusate sodium 100 mg Oral BID ??? acyclovir 10 mg/kg/dose Intravenous Q8H VIANEY ??? DISCONTD: leveTIRAcetam 1 g Intravenous Q12H VIANEY ??? OXYcodone (ROXICODONE) immediate release tablet 10-15 mg 10-15 mg Oral Q4H PRN ### ??? bisacodyl (DULCOLAX) suppository 10 mg 10 mg Rectal Daily PRN ### ??? ondansetron (ZOFRAN) tablet 4 mg 4 mg Oral Q8H PRN ### ??? ondansetron (ZOFRAN) injection 4 mg 4 mg Intravenous Q8H PRN ### ??? acetaminophen (TYLENOL) tablet 650 mg 650 mg Oral Q6H PRN ### ??? LORazepam (ATIVAN) injection 0.5-1 mg 0.5-1 mg Intravenous BID PRN ### Physical Exam: Vitals: Last value Range last 12 hrs Temperature Temp: 36.1 ??C (97 ??F) Temp: [36.1 ??C (97 ??F)-37.2 ??C (99 ??F)] Heart Rate Heart Rate: 51 Heart Rate: [51-60] Blood Pressure BP: 116/86 mmHg BP: (114-124)/(76-86) Respiratory Rate Resp: 18 Resp: [16-18] SpO2 SpO2: 96 % SpO2: [91 %-97 %] Constitutional: Wearing glasses sitting up in bed, no distress. CV: RRR, S1, S2, no murmur Resp: CTAB , symmetric expansion Neuro: MS: Alert, oriented, clear language, no dysarthria , follows commands, able to converse without difficulty. Recall 3/5. Months of year backward without problem, names president, day, month, date, andyear CN: PERRL , EOMI, no facial asymmetry Motor: no pronator drift, 5/5 strength diffusely, except for left upper extremity 4+ L deltoid, 4+ L biceps, 4+ left triceps. Reflexes: 2+ bilat bi, br, tri, pat, achilles Toes equivocal on left and downward on right. Romberg negative, Normal gait. Labs: Results for orders placed during the hospital encounter of 02/14/11 (from the past 24 hour(s)) VANCOMYCIN, TROUGH Component Value Range ??? Vanc Trough 7.5 (mg/L) POTASSIUM Component Value Range ??? Potassium 4.6 3.5 - 5.0 (mmol/L) CBC (WITH DIFF) Component Value Range ??? WBC 12.2 (*) 4.0 - 10.0 (x10(3)/mcL) ??? RBC 4.45 3.93 - 5.22 (x10(6)/mcL) ??? Hemoglobin 13.2 11.2 - 15.7 (gm/dL) ??? Hematocrit 40.1 34.0 - 45.0 (%) ??? MCV 90.1 79.0 - 94.0 (fL) ??? MCH 29.7 26.6 - 32.2 (pg) ??? MCHC 32.9 32.0 - 36.5 (gm/dL) ??? Platelets 264 145 - 370 (x10(3)/mcL) ??? RDWSD 43.7 35.0 - 46.0 (fL) ??? RDWCV 13.2 10.9 - 14.4 (%) ??? MPV 10.3 9.0 - 12.0 (fL) BMP W/FASTING GLUCOSE Component Value Range ??? Glucose Fasting 104 (*) 65 - 99 (mg/dL) ??? BUN 10 8 - 18 (mg/dL) ??? Creatinine 0.70 0.70 - 1.20 (mg/dL) ??? Sodium 138 135 - 145 (mmol/L) ??? Potassium 4.4 3.5 - 5.0 (mmol/L) ??? Chloride 108 (*) 98 - 107 (mmol/L) ??? CO2 23 22 - 31 (mmol/L) ??? Anion Gap 7 5 - 15 (mmol/L) ??? Calcium 9.3 8.5 - 10.5 (mg/dL) ? ? Estimated GFR >60 >=60 MAGNESIUM Component Value Range ??? Magnesium 0.83 0.69 - 1.07 (mmol/L) PHOSPHORUS Component Value Range ??? Phosphorus 2.3 (*) 2.5 - 4.5 (mg/dL) REFLEX LAB-A-DIFF Component Value Range ??? Neutrophils % 58.1 34.0 - 71.0 (%) ??? Neutr Abs (ANC) 7.09 (*) 1.50 - 6.30 (x10(3)/mcL) ??? Lymphocytes % 31.3 19.0 - 53.0 (%) ??? Lymphocytes Abs 3.8 (*) 1.0 - 3.6 (x10(3)/mcL) ??? Monocytes % 8.7 4.0 - 13.0 (%) ??? Monocyte Abs 1.1 (*) 0.2 - 1.0 (x10(3)/mcL) ??? Eosinophils % 1.2 0.0 - 7.0 (%) ??? Eosinophils Abs 0.2 0.0 - 0.5 (x10(3)/mcL) ??? Basophils % 0.5 0.0 - 2.0 (%) ??? Basophils Abs 0.1 0.0 - 0.2 (x10(3)/mcL) ??? Immature Gran % 0.20 0.00 - 0.66 (%) ??? Patsy Gran Abs 0.02 0.00 - 0.05 (x10(3)/mcL) OSH Lumbar Puncture: 1 WBC (1 lymphocyte), 3 RBC, glc 90, protein 32, no organisms. Diagnostic Tests and Imaging: MRI OF THE BRAIN WITH AND WITHOUT CONTRAST, 02/15/11: FINDINGS: On the FLAIR sequence is abnormal [...] appear patent. The paranasal sinuses are clear. IMPRESSION T2 signal alteration of the cortex and the adjacent subcortical white matter in a posterior distribution. The most likely diagnosis is PRES (posterior reversible encephalopathy syndrome). Less likely considerations would be encephalitis and seizure activity. EEG 02/15/11: DESCRIPTIVE TEXT: There was no identifiable background rhythm and no idenitifiable state change. The tracing consisted of diffuse arrhythmic delta along with admixed theta frequencies. Seen at 16:07 during photic stimulation was an approx 30sec episode of head shaking consisting of subtle flexion and extension of the head as well as RLE shaking which appeared rhythmic. There was no electrographic correalate with this episode. There were no significant asymmetries of background activity noted. Stage II sleep was not achieved despite provocative measures on the part of the diligent dairy technician. No focal lateralizing epileptiform abnormalities were recorded. Photic Stimulation Photic stimulation using a step-milton increase in photic frequency from 1-21 Hertz resulted in no driving responses or appearance of abnormal activity. INTERPRETATION: This EEG is ab normal due to the presence of diffuse arrhythmic slowing. Assessment: Sahra Cobb is a 45 y/o woman with a hx of epilepsy as a teenager, hx of migraine headaches transferred to [facility] on 02/14 for altered mental status and seizures. Lumbar puncture done at outside hospital was not consistent with infection. MRI brain suggestive of PRES (posterior reversible encephalopathy syndrome). Patient's systolic blood pressure was acutely elevated to 160s when she came into the hospital. EEG reassuring. Patient appearing close to mental status baseline. Believe PRES to be mostlikely diagnosis at this point. This may have been secondary to acute hypertensive episode. This could be secondary to hypertension from withdrawal benzo/opiate, or other etiology. If patient is restarted on opiates and benzos, would make sure that her prescriber monitors for overuse. Although PRES is most likely diagnosis recommend still following up outside hospital HSV/VZV titersto ruleout encephalitis. Would continue acyclovir 10mg/kg Q 8 hours for a total of 14 days if her titer were to come back reactive. -Would continue lamictal 200mg daily alone for seizure prophylaxis. -Recommend continued blood pressure control as you are doing with metoprolol Neurology will sign off. Please contact us if any other concerns arise. Thank you for this consultation. Patient seen and plan discussed with Dr. Lowe. Ian Segovia MD Neurology Attending I saw and evaluated the patient with the neurology team. I have reviewed the resident's history during the visit and I agree with the details as written. My physical examination confirms the resident's findings. The assessment and plan were formulated in discussion with me at the time of the visit and I agree with them as documented. Pertinent History: Doing much better. No seizures Pertinent Exam: Mentally clear. Mild LUE weakness. Pertinent Diagnostic Studies: Major issues addressed and Plan: Resolving encephalopathy, probably PRES. Underlying etiology remains unclear, but BP control will be important. I would favor keeping her on lamictal for seizure control and giving her fixed rather than PRN doses of opiates and benzodiazepines. I think it is OK to send her home tomorrow even if herpes PCR remains pending. She seems essentially back to normal, and none of the studies really suggest herpes. Left arm weakness is explained by old C-spine surgery. * Miscellaneous - Provider, Scanning - 02/15/2011 1:25 PM EDT * Miscellaneous - Provider, Scanning - 02/15/2011 1:25 PM EDT * Consult Note - Yusef Lowe MD - 02/14/2011 1:43 PM EDT Neurology Inpatient Consut Note Date: 02/14/11 Reason for Referral: We are seeing this patient at the request of Dr. Leroy for evaluation of altered mental status and seizure HPI: Ms. Cobb is a 45 yo female with a history of seizures as a teenager, managed on lamictal, whowas admitted to the medicine service last night with mental status changes and a seizure. Patient presented to the OSH after a seizure episode. Per report she experienced LOC and appeared confused aft erwards. Per OSH records she had incontinence of both bowel and bladder. At the OSH an LP was performed and revealed 1 WBC (1 lymphocyte), 3 RBC, glc 90, protein 32, no organisms. At the OSH a CT head was performed with no acute findings per report. OSH labs revealing for Utox positive for marijuana, oxycodone, and BZs; normal UA, leukocytosis to 23 with 90% neutrophils, ALT 174, AST 56, elevatedtroponin of 0.18, negative upreg. At the OSH she received Ativan 0.5mg, IVF, ASA, nitroglycerin, dexamethasone, ceftaz, and vancomycin. Upon arrival to [facility] patient was noted to be confused and agitated with a flushed face and supple neck. She had a low grade temperature of 38.2. History was thus obtained from the and son. Per patient had not been feeling herself for about 2-3 months. He also noted she has had a progressive tremor, unknown duration. notes that one weekago the patient had an episode of confusion, but then returned to normal. Duration of this episode was not noted in the records. Last night the witnessed a sudden episode of confusion during which she did not recognize him or her son. She was noted to be curled up in a ball in the room. She then had a witnessed seizure, semiology unknown. does not believe any fever preceeded theseizure but he is concerned about withdrawal as patient was on oxycodone and had not taken it in several days. Medicine service is considering seizure in the setting of delirium secondary to drug use or infection. She was pancultured and hepatic serologies were ordered. Viral studies were added to OSH CSF. She was continued on vancomycin and ceftriaxone on admission and transitioned to vancomycin, cipro andflagyl later this am to cover for an intra-abdominal source. CT neck given history of plate in neckordered. MRI brain also ordered. Upon Neurological evaluation patient is confused and agitated. No family present. Home phone is disconnected and no one answers her cell phone thus unfortunately no additional collateral could be obtained. Last MRI brain is unknown. Last EEG is unknown. Unknown prior AED trials. Risk factors for epi lepsy unknown beyond seizures as teenager. Past Medical History: Seizures as teenager, managed on lamictal Back pain s/p surgery Medications: Outpatient medications Percocet prn Premarin po Paxil Atenolol Fentanyl patch Vytorin Lyrica RBOs (did not see lamictal on her admisison med list) Inpatient medications ??? lamoTRIgine 200 mg Oral Daily ??? PARoxetine 60 mg Oral QAM ??? heparin (porcine) 5,000 Units Subcutaneous Q8H VIANEY ??? docusate sodium 100 mg Oral BID ??? LORazepam 1-2 mg Intravenous Once ??? vancomycin 1 g Intravenous Q12H ??? ciprofloxacin 400 mg Intravenous Q12H VIANEY ??? metroNIDAZOLE 500 mg Intravenous Q8H VIANEY ??? LORazepam 0.5-1 mg Intravenous Once ??? haloperidol lactate 5 mg Intravenous Once prn: bisacodyl, ondansetron, ondansetron, acetaminophen, potassium chloride, potassium chloride, potassium chloride, LORazepam Allergies: Amoxicillin Sulfas Ampicillin Codeine FHx: Unable to obtain SHx: Occupation: unknown EtOH: unknown No tobacco or IVDU. ROS: (x) Unable to obtain as patient is confused and agitated General: no fevers or chills, denies unintentional weight change, denies fatigue Eyes: no vision changes, diplopia, or blurry vision. ENT: no sore throat or dysphagia, denies rhinorrhea. CVS: denies chest pain, palpitations Respiratory: denies SOB, denies cough, denies wheezing GI: no reflux, no abdominal discomfort, no diarrhea/constipation, no nausea/vomiting. : no dysuria or hematuria Musculoskeletal: no myalgias, no acute joint pain or swelling Skin: no rashes or bruises Endocrine: denies h/o DM, denies h/o thyroid disorder Neuro: see HPI Psych: denies depression/anxiety. Physical Exam: Vitals: Patient Vitals in the past 24 hrs: Temp Temp src Pulse Resp SpO2 Height Weight 02/14/11 1141 37.6 ??C (99.7 ??F) Axillary - - - - - 02/14/11 0735 37.6 ??C (99.7 ??F) Axillary - - - - - 02/14/11 0500 - - - - - 1.778 m (5' 10) 70.308 kg (155 lb) 02/14/11 0430 38.2 ??C (100.8 ??F) Axillary 98 24 99 % - - General: Laying comfortably supine with eyes closed in 4 point restraints with gama vest in place HEENT: normocephalic/atraumatic. Oropharynx clear. Neck is FROM, supple but challenging to assess given agitation CV: regular rate/rhythm, no murmurs/rubs/gallops. Pulm: clear to auscultation bilaterally. Extremities: warm and well perfused, no edema Neuro: Mental Status: somnolent, arousable to drowsy. Requires constant stimulation to attend. Agitated and combative at times. Can not state name, place, date but able to state don't know to these questions after multiple attempts. Does not follow simple commands CN: PERRL, eyes do not cross midline on left with question of left gaze preference. Face symmetric with grimace. Motor: Normal tone and bulk. Bilateral low amplitude high frequency tremor noted in LE at rest, resolved upon agitation or movement. Moves all extremities spontaneously and purposefully but not to command. Reflex: Hypereflexic throughout. Down toes BL Sensation: withdraws to noxious stimuli in all 4 extremities Coordination: unable to assess Gait: Unable to assess Labs: Results for orders placed during the hospital encounter of 02/14/11 (from the past 24 hour(s)) CBC (WITH DIFF) Component Value Range ??? WBC 20.5 (*) 4.0 - 10.0 (x10(3)/mcL) ??? RBC 4.64 3.93 - 5.22 (x10(6)/mcL) ??? Hemoglobin 13.9 11.2 - 15.7 (gm/dL) ??? Hematocrit 40.1 34.0 - 45.0 (%) ??? MCV 86.4 79.0 - 94.0 (fL) ??? MCH 30.0 26.6 - 32.2 (pg) ??? MCHC 34.7 32.0 - 36.5 (gm/dL) ??? Platelets 279 145 - 370 (x10(3)/mcL) ??? RDWSD 40.7 35.0 - 46.0 (fL) ??? RDWCV 12.8 10.9 - 14.4 (%) ??? MPV 10.6 9.0 - 12.0 (fL) BASIC METABOLIC PANEL (NON-FASTING) Component Value Range ??? Glucose Lvl 146 60 - 199 (mg/dL) ??? BUN 13 8 - 18 (mg/dL) ??? Creatinine 0.74 0.70 - 1.20 (mg/dL) ??? Sodium 137 135 - 145 (mmol/L) ??? Potassium 3.1 (*) 3.5 - 5.0 (mmol/L) ??? Chloride 103 98 - 107 (mmol/L) ??? CO2 16 (*) 22 - 31 (mmol/L) ??? Anion Gap 18 (*) 5 - 15 (mmol/L) ??? Calcium 8.7 8.5 - 10.5 (mg/dL) ? ? Estimated GFR >60 >=60 MAGNESIUM Component Value Range ??? Magnesium 0.66 (*) 0.69 - 1.07 (mmol/L) PHOSPHORUS Component Value Range ??? Phosphorus 1.9 (*) 2.5 - 4.5 (mg/dL) HEPATIC FUNCTION PANEL Component Value Range ??? Total Protein 7.5 6.4 - 8.3 (gm/dL) ??? Albumin 4.2 3.2 - 5.2 (gm/dL) ??? AST 40 (*) 0 - 30 (unit/L) ??? ALT 37 (*) 0 - 30 (unit/L) ??? Alk Phos 127 (*) 40 - 104 (unit/L) ??? Total Bilirubin 0.5 0.2 - 1.3 (mg/dL) ??? Bili, Direct 0.1 0.0 - 0.3 (mg/dL) PROTHROMBIN TIME Component Value Range ??? PT 13.2 12.3 - 14.7 (sec) ??? INR 1.0 0.9 - 1.1 APTT Component Value Range ??? PTT 24 (*) 25 - 37 (sec) CARDIAC ENZYMES Component Value Range ? ? Troponin-T 0.05 (*) <=0.03 (ng/mL) ??? CK, Total 506 (*) 0 - 160 (unit/L) REFLEX LAB-A-DIFF Component Value Range ??? Neutrophils % 92.6 (*) 34.0 - 71.0 (%) ??? Neutr Abs (ANC) 18.96 (*) 1.50 - 6.30 (x10(3)/mcL) ??? Lymphocytes % 6.4 (*) 19.0 - 53.0 (%) ??? Lymphocytes Abs 1.3 1.0 - 3.6 (x10(3)/mcL) ??? Monocytes % 0.6 (*) 4.0 - 13.0 (%) ??? Monocyte Abs 0.1 (*) 0.2 - 1.0 (x10(3)/mcL) ??? Eosinophils % 0.0 0.0 - 7.0 (%) ??? Eosinophils Abs 0.0 0.0 - 0.5 (x10(3)/mcL) ??? Basophils % 0.1 0.0 - 2.0 (%) ??? Basophils Abs 0.0 0.0 - 0.2 (x10(3)/mcL) ??? Immature Gran % 0.30 0.00 - 0.66 (%) ??? Patsy Gran Abs 0.06 (*) 0.00 - 0.05 (x10(3)/mcL) REFLEX LAB-SCAN, PERIPHERAL BLOOD Component Value Range ??? Plat Estimate Normal ??? RBC Morphology Abnormal ??? Ovalocytes 1-5 (/HPF) URINALYSIS WITH MICROSCOPIC Component Value Range ??? Glucose UA Negative Negative (mg/dL) ??? Protein UA Trace (*) Neg (mg/dL) ??? Bilirubin UA Negative Negative (mg/dL) ??? Urobilinogen UA Normal (mg/dL) ??? pH UA 6.0 5.0 - 8.0 ??? Blood UA Small (*) Neg ??? Ketones UA 10 (*) Neg (mg/dL) ??? Nitrite UA Negative ??? Leukocytes UA Negative (mcL) ??? Appearance UA Cloudy (*) Clear ??? Spec [place] UA 1.012 1.002 - 1.030 ??? Color UA Yellow Yellow ??? RBC UA 3 0 - 4 (/HPF) ??? WBC UA Not Present 0 - 5 ??? Amorph Irena UA Moderate (/HPF) LACTIC ACID, PLASMA Component Value Range ??? Lactate 4.2 (*) 0.5 - 2.2 (mmol/L) Pertinent Radiographic/Diagnostic Results: 02/[address] OSH Negative for acute pathology 02/14 CT Head My read: a lot of artifact, no acute intracranial bleed, midline shift, mass effect orlarge territorial stroke MRI brain Pending completion 02/14 CT abd/pelvis Completed, report pending 02/14 CXR My read: no acute cardiopulmonary process Assessment: Ms. Cobb is a 45 yo female with a history of seizures as a teenager, managed on lamictal, who was admitted to the medicine service last night with mental status changes and a seizure. Patient also with fevers and abnormal LFTs. Patient continues to be confused and agitated at times. Unfortunately no family is available at the bedside or phone for collateral information regarding her previous diagnosis of seizures. Unclear semiology of episode or history of tremor. Neurological examination is pertinent for continued altered mental status, hyperreflexia, and possible gaze preference. Patient is currently undergoing a metabolic and infectious work-up for delirium and source of fever. I am also concerned about subclinical status epilepticus vs delirium secondary to encephalitis in Ms. Cobb.I would thus recommend the following: Recommendation: -MRI brain with and without winnie now -EEG monitoring, we will arrange for this -continue Lamictal po 200mg daily if able to tolerate po -Recommend 1gm Keppra IV load with Keppra maintenance dose 500mg po/IV BID -Recommend initiating acyclovir to cover for potential viral process. Ensure HSV is checked in OSH CSF -consider dose reduction of lyrica if for pain rather than epilepsy as can worsen an epileptic process -continue delirium work-up as you are doing in terms of ruling out a metabolic or infectious cause. Thank you for this interesting consult Neurology Attending I saw and evaluated the patient with the neurology team. I have reviewed the resident's history during the visit and I agree with the details as written. My physical examination confirms the resident's findings. The assessment and plan were formulated in discussion with me at the time of the visit and I agree with them as documented. Pertinent History: Not much history available. She has some type of epilepsy and now presents with seizure and encephalopathy. Hs fever, elevated WBC and elevated LFTs. Pertinent Exam: Intermittently agitated and lethargic. Say a few words. follows some directions. Moves al 4 extremities well. Withdraws bilaterally Pertinent Diagnostic Studies: EEG shows profound generalized slowing but no clearly epileptic abnormalities. Major issues addressed and Plan: It is not clear what has happened. She seems to have an acute encephalitis/encephalopathy. I favor continuing antibiotics and adding acyclovir till culture results and herpes PCR study come back negative. Please continue lamictal if she can take PO and also as a precaution add Keppra 1000 mg bid. I would reduce Lyrica since it is sedating and can make some epilepsies worse and it sesms it was prescribed for pain and not epilepsy. Montse Arce MD, Neurology resident Case discussed and patient seen with Dr. Lowe documented in this encounter Plan of Treatment Not on file documented as of this encounter Procedures Procedure Name Priority Date/Time Associated Diagnosis Comments DONOR RECRUITMENT MANAGER SCAN 02/18/2011 3:23 PM EDT CARDIAC ENZYMES ([facility]) STAT 02/17/2011 8:17 AM EDT EKG 12-LEAD STAT 02/17/2011 7:59 AM EDT Cardiac enzymes elevated BMP W/FASTING GLUCOSE Routine 02/16/2011 3:39 AM EDT DIFFERENTIAL, AUTOMATED Routine 02/17/20 11 3:39 AM EDT CBC (WITH DIFF) Routine 02/16/2011 3:39 AM EDT PHOSPHORUS Routine 02/16/2011 3:39 AM EDT MAGNESIUM Routine 02/16/2011 3:39 AM EDT POTASSIUM Timed 02/16/2011 12:34 AM EDT VANCOMYCIN, TROUGH Timed 02/15/2011 8: 28 PM EDT ECHOCARDIOGRAM TRANSTHORACIC Routine 02/15/2011 4:17 PM EDT Mental status alteration Cardiac enzymes elevated C. DIFFICILE SCREEN Routine 02/15/2011 3 :19 PM EDT DIFFERENTIAL, AUTOMATED Routine 02/16/20 11 11:29 AM EDT CARDIAC ENZYMES ([facility]) Routine 02/15/2011 11:29 AM EDT CBC (WITH DIFF) Routine 02/15/2011 11:29 AM EDT LACTATE, PLASMA Routine 02/15/2011 11:29 AM EDT COMPREHENSIVE METABOLIC PANEL (NON-FASTING) Routine 02/15/2011 11:29 AM EDT MRI BRAIN WWO CONTRAST (GENERIC) Routine 02/15/2011 9:48 AM EDT EEG, EXTENDED MONITORING; UP TO ONE HOUR PRFM Routine 02/15/2011 8:30 AM EDT POTASSIUM Routine 02/14/2011 6:18 PM EDT URINALYSIS WITH REFLEX CULTURE Routine 02/14/2011 5:28 PM EDT URINE CULTURE Routine 02/14/2011 5:27 PM EDT XR CHEST ONE VIEW Routine 02/14/2011 2:[address] NECK SOFT TISSUE W CONTRAST Routine 02/14/2011 1:[address] HEAD WO CONTRAST (GENERIC) Routine 02/14/2011 1:[address] ABDOMEN AND PELVIS W CONTRAST Routine 02/14/2011 1:56 PM EDT EKG 12-LEAD STAT 02/14/2011 5:01 AM EDT Mental status alteration HEPATITIS C ANTIBODY Routine 02/14/2011 4:45 AM EDT HEPATITIS B CORE ANTIBODY, TOTAL Routine 02/14/2011 4:45 AM EDT HIV SCREEN, 4TH GENERATION ([facility]P/APD/NLH) Routine 02/14/2011 4:45 AM EDT HEPATITIS B SURFACE ANTIBODY Routine 02/14/2011 4:45 AM EDT HEPATITIS B SURFACE ANTIGEN Routine 02/14/2011 4:45 AM EDT BLOOD CULTURE STAT 02/14/2011 4:45 AM EDT LACTATE, PLASMA Routine 02/14/2011 4:40 AM EDT DRUG SCREEN WITH CONFIRMATION, URINE (SEND OUT) Routine 02/14/2011 4:34 AM EDT THC (MARIJUANA), URINE, CONFIRMATION Routine 02/14/2011 4:34 AM EDT BENZODIAZEPINE, URINE CONFIRMATION Routine 02/14/2011 4:34 AM EDT URINALYSIS WITH REFLEX CULTURE Routine 02/14/2011 4:34 AM EDT URINE CULTURE Routine 02/14/2011 4:34 AM EDT SCAN, PERIPHERAL BLOOD Routine 1 4:30 AM EDT DIFFERENTIAL, AUTOMATED Routine 02/15/20 11 4:30 AM EDT CARDIAC ENZYMES ([facility]) Routine 02/14/2011 4:30 AM EDT APTT Routine 02/14/2011 4:30 AM EDT PROTHROMBIN TIME Routine 02/14/2011 4:30 AM EDT CBC (WITH DIFF) Routine 02/14/2011 4:30 AM EDT PHOSPHORUS Routine 02/14/2011 4:30 AM EDT MAGNESIUM Routine 02/14/2011 4:30 AM EDT HEPATIC FUNCTION PANEL Routine 1 4:30 AM EDT BASIC METABOLIC PANEL (NON-FASTING) Routine 02/14/2011 4:30 AM EDT documented in this encounter Results * SCAN DOC: DONOR RECRUITMENT MANAGER (02/18/2011 3:23 PM EDT) Anatomical Region Laterality Modality Other Narrative 02/19/2011 7:28 AM EDT Procedure Note Provider, Scanning - 02/18/2011 3:23 PM EDT Scanning Provider MEDIA MGR SCAN EXT O RDR/RSLT * (ABNORMAL) Cardiac Enzymes (02/17/2011 8:17 AM EDT) Troponin-T <0.03 <=0.03 ng/mL PARISHLUIZA [place] Comment: 0.03 ng/mL: Represents the 99th percentile upper reference limit for normals. >0.03 ng/mL: Elevated cardiac troponin T level indicative of myocardial damage. Diagnosis of acute, evolving or recent MD requires a typical rise and gradual fall [...] of suspicion is high. Reference: [Myocardial infarction redefined a consensus document of the Joint Society of Cardiology/[place] College [employer] Committee for the redefinition of myocardial infarction. Journal of the [place] College [employer] 2000; 36: 959-969] CK, Total 318(H) 0 - 160 unit/L JANAY HELENSISNATHAN Blood specimen (specimen) 02/17/2011 8:17 AM EDT 02/17/2011 8:22 AM EDT Nitish Hayden MD CHEMISTRY ORDERABLES JANAY PANDYA * EKG 12-LEAD Is a rhythm strip needed?: No; Reason for Exam:: Chest Pain (02/17/2011 7:59 AM EDT) Ventricular rate 62 BPM MUSE SYSTEM Atrial Rate 62 BPM MUSE SYSTEM P-R Interval 144 ms MUSE SYSTEM QRS Duration 82 ms MUSE SYSTEM Q-T Interval 470 ms MUSE SYSTEM QTC Calculated (Bezet) 477 ms MUSE SYSTEM Calculated P [place] 44 degrees MUSE SYSTEM Calculated T [place] 27 degrees MUSE SYSTEM INTERPRETATION Normal sinus rhythm Normal ECG When compared with ECG of 14-FEB-2011 05:01, Vent. rate has decreased BY ??30 BPM Confirmed by MD Parker, John Barnes ([id number]) on 02/17/2011 9:07:50 AM MUSE SYSTEM 02/17/2011 7:59 AM EDT 02/17/2011 9:07 AM EDT Nitish Hayden MD ECG ORDERABLES MUSE SYSTEM * (ABNORMAL) REFLEX LAB-A-DIFF (02/16/2011 3:39 AM EDT) Neutrophils % 58.1 34.0 - 71.0 % CERNER MILLENNIUM Neutr Abs (ANC) 7.09(H) 1.50 - 6.30 x10(3)/mc L CERNER MILLENNIUM Lymphocytes % 31.3 19.0 - 53.0 % CERNER MILLENNIUM Lymphocytes Abs 3.8(H) 1.0 - 3.6 x10(3)/mc L CERNER MILLENNIUM Monocytes % 8.7 4.0 - 13.0 % CERNER MILLENNIUM Monocyte Abs 1.1(H) 0.2 - 1.0 x10(3)/mc L CERNER MILLENNIUM Eosinophils % 1.2 0.0 - 7.0 % CERNER MILLENNIUM Eosinophils Abs 0.2 0.0 - 0.5 x10(3)/mc L CERNER MILLENNIUM Basophils % 0.5 0.0 - 2.0 % CERNER MILLENNIUM Basophils Abs 0.1 0.0 - 0.2 x10(3)/mc L CERNER MILLENNIUM Immature Gran % 0.20 0.00 - 0.66 % CERNER MILLENNIUM Comment: Immature granulocytes(IG's)percentage and absolute count will include metamyelocytes, myelocytes, and promyelocytes. Blood smears from CBCs yielding IG's will be scanned manually for concordance. If this scan disagrees with the automated IG or if promyelocytes are noted, a manual differential will be performed. Patsy Gran Abs 0.02 0.00 - 0.05 x10(3)/mc L CERNER MILLENNIUM Blood specimen (specimen) 02/16/2011 3:39 AM EDT 02/16/2011 3:50 AM EDT Nitish Hayden MD HEMATOLOGY ORDERABLE S [facility] * (ABNORMAL) Phosphorus (02/16/2011 3:39 AM EDT) Phosphorus 2.3(L) 2.5 - 4.5 mg/dL [facility] Blood specimen (specimen) 02/16/2011 3:39 AM EDT 02/16/2011 3:50 AM EDT Nitish Hayden MD CHEMISTRY ORDERABLES [facility] * Magnesium (02/16/2011 3:39 AM EDT) Magnesium 0.83 0.69 - 1.07 mmol/L [facility] Blood specimen (specimen) 02/16/2011 3:39 AM EDT 02/16/2011 3:50 AM EDT Nitish Hayden MD CHEMISTRY ORDERABLES [facility] * (ABNORMAL) BMP w/fasting Glucose (02/16/2011 3:39 AM EDT) Glucose Fasting 104(H) 65 - 99 mg/dL [facility] Comment: ?Fasting* Glucose Interpretive Criteria Normal ?65-99 mg/dL Impaired Fasting glucose ?100-125 mg/dL Consistent with Diabetes Mellitus ? >or= 126 mg/dL *Fasting is defined as no caloric intake for at least 8 hours In the absence of unequivocal hyperglycemia a plasma glucose value of >or= 126 mg/dL should be repeated on a subsequent day. Diagnosis and Classification of Diabetes Mellitus, Position Statement from the [place] [employer]. ??Diabetes Care, Volume 33, Supplement 1, Sep 2009 BUN 10 8 - 18 mg/dL CERNER MILLENNIUM Creatinine 0.70 0.70 - 1.20 mg/dL CERNER MILLENNIUM Sodium 138 135 - 145 mmol/L CERNER MILLENNIUM Potassium 4.4 3.5 - 5.0 mmol/L CERNER MILLENNIUM Comment: Please note: ??Patients with WBC >100,000 may have falsely elevated Potassium levels. ??For accurate Potassium quantification in these patients send serum separator tube (gold top) for subsequent determinations. ??Contact the Clinical Chemistry Laboratory if there are any questions. Chloride 108(H) 98 - 107 mmol/L CERNER MILLENNIUM CO2 23 22 - 31 mmol/L CERNER MILLENNIUM Anion Gap 7 5 - 15 mmol/L CERNER MILLENNIUM Calcium 9.3 8.5 - 10.5 mg/dL CERNER MILLENNIUM Comment:result rechecked-pe Estimated GFR >60 >=60 CERNER MILLENNIUM Comment: The National Kidney Disease Education Program (NKDEP) has recommended all laboratories report estimated GFR (eGFR) along with plasma creatinine measurements to assist you with recognition of early kidney disease. Caveats: ??Plasma creatinine should be at steady-state (unchanged within the past week). For patients multiply eGFR by 1.2.MDRD equation has not been validated for pediatric patients and is only valid for patients with age >= 18 years. At present, NKDEP does NOT recommend using the MDRD equation for drug dosing purposes and pharmacists should continue to use their current dosing methods. In addition, numerical eGFR values greater than 60 ml/min/1.73 square meters should be treated as > 60, and not an exact number due to greater inaccuracies at these higher values. Per NKDEP, they classify normal renal function as any GFR >60ml/min/1.73 square meters; chronic kidney disease when GFR <60, and renal failure when GFR <15. ??This calculation may not be valid for patients with atypical muscle mass (very lean or obese), acute renal failure, and in patients with diabetic kidney disease. References: http://nkdep.nih.gov/resources/NKDEP_Suggestn4Labs_0606_508.pdf http://www.kidney.org/professionals/kls/pdf/faq_gfr.pdf Blood specimen (specimen) 02/16/2011 3:39 AM EDT 02/16/2011 3:50 AM EDT Nitish Hayden MD CHEMISTRY ORDERABLES Performing Organization Address [facility] de Phone Number CERNER MILLENNIUM * (ABNORMAL) CBC (with Diff) (02/16/2011 3:39 AM EDT) WBC 12.2(H) 4.0 - 10.0 x10(3)/mcL CERNER MILLENNIUM RBC 4.45 3.93 - 5.22 x10(6)/mcL CERNER MILLENNIUM Hemoglobin 13.2 11.2 - 15.7 gm/dL CERNER MILLENNIUM Hematocrit 40.1 34.0 - 45.0 % CERNER MILLENNIUM MCV 90.1 79.0 - 94.0 fL CERNER MILLENNIUM MCH 29.7 26.6 - 32.2 pg CERNER MILLENNIUM MCHC 32.9 32.0 - 36.5 gm/dL CERNER MILLENNIUM Platelets 264 145 - 370 x10(3)/mcL CERNER MILLENNIUM RDWSD 43.7 35.0 - 46.0 fL CERNER MILLENNIUM RDWCV 13.2 10.9 - 14.4 % CERNER MILLENNIUM MPV 10.3 9.0 - 12.0 fL CERNER MILLENNIUM Blood specimen (specimen) 02/16/2011 3:39 AM EDT 02/16/2011 3:50 AM EDT Nitish Hayden MD HEMATOLOGY ORDERABLE S Performing Organization Address [facility] Co de Phone Number [facility] * Potassium (02/16/2011 12:34 AM EDT) Potassium 4.6 3.5 - 5.0 mmol/L CERNER MILLENNIUM Comment: result rechecked-pe Please note: ??Patients with WBC >100,000 may have falsely elevated Potassium levels. ??For accurate Potassium quantification in these patients send serum separator tube (gold top) for subsequent determinations. ??Contact the Clinical Chemistry Laboratory if there are any questions. Blood specimen (specimen) 02/16/2011 12:34 AM EDT 02/16/2011 12:42 AM EDT Nitish Hayden MD CHEMISTRY ORDERABLES Performing Organization Address St. [facility] Co de Phone Number [facility] * Vancomycin, trough (02/15/2011 8:28 PM EDT) Vanc Trough 7.5 mg/L [facility] Comment: Therapeutic range for complicated infections such as bacteremia, endocarditis, osteomyelitis, meningitis, and hospital-acquired pneumonia caused by S. aureus: 15-20 mg/L Therapeutic range for other indications: 10-15 mg/L Toxic: >30 mg/L Reference: Vancomycin Therapeutic Monitoring: Review and Recommendations from the ASHP, IDSA and SIDP Task Force. ??Am J Health-Syst Pharm. 2009; 66:82-98 Blood specimen (specimen) 02/15/2011 8:28 PM EDT 02/15/2011 8:32 PM EDT Nitish Hayden MD CHEMISTRY ORDERABLES Performing Organization Address [facility] Co de Phone Number [facility] * Echo Transthoracic (Complete) (02/15/2011 4:17 PM EDT) EF 55 HEARTLAB SYSTEM Anatomical Region Laterality Modality Other 02/15/2011 Narrative 02/15/2011 4:30 PM EDT Procedure: ? Transthoracic Echocardiogram ? Patient: ? JORDYN Barnes ? (Age): 1965(45) Med Rec#: ?[id number] ?Sex: ?F ? Site Loc: ?[facility] ?Ht / Wt: ??(cm)/67(kg) ?? Pt. Loc: ? ICU ? BSA: ? Study Date: ?02/15/2011 ?Pt. Type: Inpatient Tape: ? Referring: Nitish Hayden Referring: AMBROSIO LOPEZ Screening Specialist: Moe Schuster Diagnosis: ??Chest pain (786.50) CPT Code(s): ??Echo Full (69025), ??Spectral Doppler (79249), ??Color Doppler (31292), Indication(s): ??Chest Pain Rhythm: HR ?BP ?150/96 ?? SUMMARY: 1. The left ventricular chamber size is normal. Left ventricular wall thickness is normal. There is mild inferior wall hypokinesis. There is normal global left ventricular systolic function. ??Ejection fraction is estimated to be 55%. 2. Right ventricular chamber size, wall thickness, and systolic function are within normal limits. 3. There is mild to moderate (1-2+/4+) mitral regurgitation present. There is mild (1+/4+) tricuspid regurgitation present. 4. The estimated pulmonary artery systolic pressure is 24 mmHg. 5. See remainder of report for additional findings. FINDINGS: Left Ventricle ?The left ventricular chamber size is normal. ?Left ventricular wall thickness is normal. ?There is normal global left ventricular systolic function. ??Ejection fraction is estimated to be 55%. ?There are left ventricular segmental wall motion abnormalities present, as shown in the diagram below. ?Doppler assessment is consistent with elevated left sided filling pressure. ?The ??basal inferior, basal inferoseptal, mid inferior and mid inferoseptal wall segments are hypokinetic. Left Atrium ?The left atrium is normal in size. Right Ventricle ?Right ventricular chamber size, wall thickness, and systolic function are within normal limits. ?The estimated pulmonary artery systolic pressure is 24 mmHg. ?The estimated right atrial pressure is 3 mmHg. Right Atrium ?The right atrium is normal in size. Aortic Valve ?The aortic valve is tricuspid. ?There is no evidence of aortic valve stenosis. ?There is a trace of aortic regurgitation present. Mitral Valve ?The mitral valve leaflets appear normal. ?There is no evidence of mitral stenosis. ?There is mild to moderate (1-2+/4+) mitral regurgitation present. Tricuspid Valve ?The tricuspid valve appears normal in structure and function. ?There is mild (1+/4+) tricuspid regurgitation present. Pulmonic Valve ?The pulmonic valve appears normal in structure and function. ?There is trace pulmonic regurgitation present. Pericardium ?The pericardium appears normal and there is no evidence of a pericardial effusion. Aorta ?The aortic root is normal in size. ?The ascending aorta is normal in size. Pulmonary Artery ?The main pulmonary artery appears normal. Venous ?The inferior vena cava appears normal in size. ?There is a greater than 50% respiratory change in the inferior vena cava dimension. Misc ?Two-dimensional echo, spectral Doppler and color Doppler performed. Wall Motion: Segment Name ?Rest ? Base-Anteroseptal ?? Normal ? Base-Anterior ? Normal ? Base-Anterolateral ??Normal ? Base-Posterolateral Normal ? Base-Inferior ? Hypokinetic ? Base-Inferoseptal ?? Hypokinetic ? Mid-Anteroseptal ?Normal ? Mid-Anterior ?Normal ? Mid-Anterolateral ?? Normal ? Mid-Posterolateral ??Normal ? Mid-Inferior ?Hypokinetic ? Mid-Inferoseptal ?Hypokinetic ? [place]-Septal ? Normal ? [place]-Anterior ? Normal ? [place]-Lateral ?Normal ? [place]-Inferior ? Normal ? [place]-Tip ?Normal ? Chambers ?Value ?Units (Range) ? IVSd 2D ? 0.8 ?cm ? LVIDd 2D ?5 ?cm ? PWd 2D ?0.9 ?cm ? LVFS 2D ? 8 ?% ? LA area ? 16 ? cm2 (<21) ? RA area ? 14 ? cm2 (<18) ? Ao root ? 3.3 ?cm (2.1 to 3.6) ? Asc Ao ?3.4 ?cm (2 to 3.5) ? Mitral Valve ?Value ?Units (Range) ? E peak ?0.65 ? m/sec ? E/A ratio ? 2 ?ratio ? MVDT ?165 ?msec ? E1 ?0.04 ? m/sec ? E/E1 ?16.3 ? ratio ? Tricuspid/Pulmonic Valves ?Value ?Units (Range) ? TR peak vijay ? 2.3 ?m/sec ? RAP ? 3 ?mmHg ? RVSP/PASP ? 24 ? mmHg ? This report has been electronically signed by: Homer Horvath MD ? 02/15/2011 16:29:49 Images reviewed and interpretation verified [facility] Cardiac Ultrasound Laboratory Procedure Note 02/15/2011 Procedure: Transthoracic Echocardiogram Patient: JORDYN CERVANTES(Age): 1965(45) Med Rec#: [id number] Sex: F Site Loc: [facility] Ht / Wt: (cm)/67(kg) Pt. Loc: ICU BSA: Study Date: 02/15/2011 Pt. Type: Inpatient Tape: Referring: Nitish Hayden Referring: AMBROSIO LOPEZ Screening Specialist: Moe Schuster Diagnosis: Chest pain (786.50) CPT Code(s): Echo Full (94464), Spectral Doppler (47317), Color Doppler (31953), Indication(s): Chest Pain Rhythm: HR BP 150/96 SUMMARY: 1. The left ventricular chamber size is normal. Left ventricular wall thickness is normal. There is mild inferior wall hypokinesis. There is normal global left ventricular systolic function. Ejection fraction is estimated to be 55%. 2. Right ventricular chamber size, wall thickness, and systolic function are within normal limits. 3. There is mild to moderate (1-2+/4+) mitral regurgitation present. There is mild (1+/4+) tricuspid regurgitation present. 4. The estimated pulmonary artery systolic pressure is 24 mmHg. 5. See remainder of report for additional findings. FINDINGS: Left Ventricle The left ventricular chamber size is normal. Left ventricular wall thickness is normal. There is normal global left ventricular systolic function. Ejection fraction is estimated to be 55%. There are left ventricular segmental wall motion abnormalities present, as shown in the diagram below. Doppler assessment is consistent with elevated left sided filling pressure. The basal inferior, basal inferoseptal, mid inferior and mid inferoseptal wall segments are hypokinetic. Left Atrium The left atrium is normal in size. Right Ventricle Right ventricular chamber size, wall thickness, and systolic function are within normal limits. The estimated pulmonary artery systolic pressure is 24 mmHg. The estimated right atrial pressure is 3 mmHg. Right Atrium The right atrium is normal in size. Aortic Valve The aortic valve is tricuspid. There is no evidence of aortic valve stenosis. There is a trace of aortic regurgitation present. Mitral Valve The mitral valve leaflets appear normal. There is no evidence of mitral stenosis. There is mild to moderate (1-2+/4+) mitral regurgitation present. Tricuspid Valve The tricuspid valve appears normal in structure and function. There is mild (1+/4+) tricuspid regurgitation present. Pulmonic Valve The pulmonic valve appears normal in structure and function. There is trace pulmonic regurgitation present. Pericardium The pericardium appears normal and there is no evidence of a pericardial effusion. Aorta The aortic root is normal in size. The ascending aorta is normal in size. Pulmonary Artery The main pulmonary artery appears normal. Venous The inferior vena cava appears normal in size. There is a greater than 50% respiratory change in the inferior vena cava dimension. Misc Two-dimensional echo, spectral Doppler and color Doppler performed. Wall Motion: Segment Name Rest Base-Anteroseptal Normal Base-Anterior Normal Base-Anterolateral Normal Base-Posterolateral Normal Base-Inferior Hypokinetic Base-Inferoseptal Hypokinetic Mid-Anteroseptal Normal Mid-Anterior Normal Mid-Anterolateral Normal Mid-Posterolateral Normal Mid-Inferior Hypokinetic Mid-Inferoseptal Hypokinetic [place]-Septal Normal [place]-Anterior Normal [place]-Lateral Normal [place]-Inferior Normal [place]-Tip Normal Chambers Value Units (Range) IVSd 2D 0.8 cm LVIDd 2D 5 cm PWd 2D 0.9 cm LVFS 2D 8 % LA area 16 cm2 (<21) RA area 14 cm2 (<18) Ao root 3.3 cm (2.1 to 3.6) Asc Ao 3.4 cm (2 to 3.5) Mitral Valve Value Units (Range) E peak 0.65 m/sec E/A ratio 2 ratio MVDT 165 msec E1 0.04 m/sec E/E1 16.3 ratio Tricuspid/Pulmonic Valves Value Units (Range) TR peak vijay 2.3 m/sec RAP 3 mmHg RVSP/PASP 24 mmHg This report has been electronically signed by: Homer Horvath MD 02/15/2011 16:29:49 Images reviewed and interpretation verified [facility] Cardiac Ultrasound Laboratory Nitish Hayden MD ECHO ORDERABLES * C. Difficile Screen (02/15/2011 3:19 PM EDT) [facility] C Diff Screen Negative Negative [facility] Stool specimen (specimen) 02/15/2011 3:19 PM EDT 02/15/2011 3:52 PM EDT Nitish Hayden MD MICROBIOLOGY - GENER AL ORDERABLES [facility] * (ABNORMAL) REFLEX LAB-A-DIFF (02/15/2011 11:29 AM EDT) Pathologist [facility] Neutrophils % 77.0(H) 34.0 - 71.0 % [facility] Neutr Abs (ANC) 14.69(H) 1.50 - 6.30 x10(3)/mc L [facility] Lymphocytes % 13.9(L) 19.0 - 53.0 % [facility]ILL[facility]NI[facility] Lymphocytes Abs 2.6 1.0 - 3.6 x10(3)/mc L [facility] Monocytes % 8.7 4.0 - 13.0 % [facility]ILLENNI[facility] Monocyte Abs 1.7(H) 0.2 - 1.0 x10(3)/mc L [facility] Eosinophils % 0.1 0.0 - 7.0 % [facility] Eosinophils Abs 0.0 0.0 - 0.5 x10(3)/mc L [facility] Basophils % 0.1 0.0 - 2.0 % [facility]ILL[facility] Basophils Abs 0.0 0.0 - 0.2 x10(3)/mc L [facility] Immature Gran % 0.20 0.00 - 0.66 % [facility] Comment: Immature granulocytes(IG's)percentage and absolute count will include metamyelocytes, myelocytes, and promyelocytes. Blood smears from CBCs yielding IG's will be scanned manually for concordance. If this scan disagrees with the automated IG or if promyelocytes are noted, a manual differential will be performed. Patsy Gran Abs 0.04 0.00 - 0.05 x10(3)/mc L [facility] Blood specimen (specimen) 02/15/2011 11:29 AM EDT 02/15/2011 11:36 AM EDT Nitish Hayden MD HEMATOLOGY ORDERABLE S [facility] * (ABNORMAL) Comprehensive metabolic panel (non-fasting) (02/15/2011 11:29 AM EDT) Glucose Lvl 107 60 - 199 mg/dL [facility] Comment:Diabetes: >=200 mg/d L plus symptoms BUN 7(L) 8 - 18 mg/dL [facility] Creatinine 0.57(L) 0.70 - 1.20 mg/dL [facility] Sodium 142 135 - 145 mmol/L [facility] Potassium 2.6(Criti jewels) 3.5 - 5.0 mmol/L [facility] Comment: Result rechecked. Called by: EDINSON, Read back by: Ary Robin, Date/Time:02/15/11 12:41. Please note: ??Patients with WBC >100,000 may have falsely elevated Potassium levels. ??For accurate Potassium quantification in these patients send serum separator tube (gold top) for subsequent determinations. ??Contact the Clinical Chemistry Laboratory if there are any questions. Chloride 113(H) 98 - 107 mmol/L [facility] CO2 19(L) 22 - 31 mmol/L [facility] Anion Gap 10 5 - 15 mmol/L [facility] Calcium 7.7(L) 8.5 - 10.5 mg/dL [facility] Comment:result [facility]hecked-[facility] Total Protein 6.1(L) 6.4 - 8.3 gm/dL [facility]ILL[facility] Albumin 3.5 3.2 - 5.2 gm/dL [facility] MILLENNIUM AST 30 0 - 30 unit/L [facility]ILL[facility] ALT 22 0 - 30 unit/L [facility] Alk Phos 86 40 - 104 unit/L [facility] Total Bilirubin 0.6 0.2 - 1.3 mg/dL [facility] Bili, Direct 0.1 0.0 - 0.3 mg/dL [facility] Estimated GFR >60 >=60 [facility] Comment: The National Kidney Disease Education Program (NKDEP) has recommended all laboratories report estimated GFR (eGFR) along with plasma creatinine measurements to assist you with recognition of early kidney disease. Caveats: ??Plasma creatinine should be at steady-state (unchanged within the past week). For patients multiply eGFR by 1.2.MDRD equation has not been validated for pediatric patients and is only valid for patients with age >= 18 years. At present, NKDEP does NOT recommend using the MDRD equation for drug dosing purposes and pharmacists should continue to use their current dosing methods. In addition, numerical eGFR values greater than 60 ml/min/1.73 square meters should be treated as > 60, and not an exact number due to greater inaccuracies at these higher values. Per NKDEP, they classify normal renal function as any GFR >60ml/min/1.73 square meters; chronic kidney disease when GFR <60, and renal failure when GFR <15. ??This calculation may not be valid for patients with atypical muscle mass (very lean or obese), acute renal failure, and in patients with diabetic kidney disease. References: http://nkdep.nih.gov/resources/NKDEP_Suggestn4Labs_0606_508.pdf http://www.kidney.org/professionals/kls/pdf/faq_gfr.pdf Blood specimen (specimen) 02/15/2011 11:29 AM EDT 02/15/2011 11:36 AM EDT Nitish Hayden MD CHEMISTRY ORDERABLES Performing Organization Address [facility] Co de Phone Number [facility] * Lactic acid, plasma (02/15/2011 11:29 AM EDT) Pathologist [facility] Lactate 1.0 0.5 - 2.2 mmol/L [facility] Comment:result rechecked-kml Blood specimen (specimen) 02/15/2011 11:29 AM EDT 02/15/2011 11:37 AM EDT Nitish Hayden MD CHEMISTRY ORDERABLES Performing Organization Address [facility] Co de Phone Number [facility] * (ABNORMAL) Cardiac Enzymes (02/15/2011 11:29 AM EDT) Troponin-T 0.03 <=0.03 ng/mL [facility] Comment: 0.03 ng/mL: Represents the 99th percentile upper reference limit for normals. >0.03 ng/mL: Elevated cardiac troponin T level indicative of myocardial damage. Diagnosis of acute, evolving or recent MD requires a typical rise and gradual fall [...] of suspicion is high. Reference: [Myocardial infarction redefined a consensus document of the Joint Society of Cardiology/[place] College of Cardiology Committee for the redefinition of myocardial infarction. Journal of the [place] College of Cardiology 2000; 36: 959-969] CK, Total 484(H) 0 - 160 unit/L [facility] MILLENNI[facility] Blood specimen (specimen) 02/15/2011 11:29 AM EDT 02/15/2011 11:36 AM EDT Nitish Hayden MD CHEMISTRY ORDERABLES [facility] * (ABNORMAL) CBC (with Diff) (02/15/2011 11:29 AM EDT) WBC 19.1(H) 4.0 - 10.0 x10(3)/mcL [facility]ILL[facility] RBC 4.27 3.93 - 5.22 x10(6)/mcL [facility]ILLENNI[facility] Hemoglobin 12.9 11.2 - 15.7 gm/dL [facility]ILLENNI[facility] Hematocrit 37.7 34.0 - 45.0 % CERNER MILLENNIUM MCV 88.3 79.0 - 94.0 fL CERNER MILLENNIUM MCH 30.2 26.6 - 32.2 pg CERNER MILLENNIUM MCHC 34.2 32.0 - 36.5 gm/dL [facility] MILLENNI[facility] Platelets 265 145 - 370 x10(3)/mcL [facility]ERNER MILLENNIUM RDWSD 42.5 35.0 - 46.0 fL CERNER MILLENNIUM RDWCV 13.4 10.9 - 14.4 % CERNER MILLENNIUM MPV 10.3 9.0 - 12.0 fL [facility]ILL[facility] Blood specimen (specimen) 02/15/2011 11:29 AM EDT 02/15/2011 11:36 AM EDT Nitish Hayden MD HEMATOLOGY ORDERABLE S [facility] * MRI BRAIN WITH/WO CONTRAST (02/15/2011 9:48 AM EDT) Anatomical Region Laterality Modality Head Magnetic Resonan ce 02/15/2011 9:48 AM EDT Impressions 02/15/2011 1:40 PM EDT IMPRESSION: T2 signal alteration of the cortex and the adjacent subcortical white matter in a posterior distribution. The most likely diagnosis is PRES (posterior reversible encephalopathy syndrome). Less likely considerations would be encephalitis and seizure activity. Narrative 02/15/2011 1:40 PM EDT MRI OF THE BRAIN WITH AND WITHOUT CONTRAST, 02/15/11: CONTRAST: ??13 cc of Magnevist administered. PREVIOUS STUDY: ??CT scan of the head dated 02/14/11. HISTORY: ??Fevers, confusion, question encephalitis. FINDINGS: ??On the FLAIR sequence is abnormal T2 signal [...] appear patent. The paranasal sinuses are clear. Procedure Note Homer Lopez MD - 02/15/2011 MRI OF THE BRAIN WITH AND WITHOUT CONTRAST, 02/15/11: CONTRAST: 13 cc of Magnevist administered. PREVIOUS STUDY: CT scan of the head dated 02/14/11. HISTORY: Fevers, confusion, question encephalitis. FINDINGS: On the FLAIR sequence is abnormal T2 signal in the cortex and adjacent subcortical white matter in the bilateral parasagittal parietallobes, as well as the parasagittal occipital lobes bilaterally. No associated enhancement is identified. There is a tiny focus of restricted diffusionin the right occipital lobe, otherwise no associated restricted diffusion. Theedema associated with this process is minimal. There is a single focus of T0wmtauz alteration in the anterior right parietal lobe, as well as several areasof increased T2 signal in the yissel. These are thought to most likely reflectsmall vessel ischemic disease. No masses or extraaxial collections. The ventricles and sulci are of proportional size. Normal proximal intracranial flow voids are seen.Although an MRV was performed, the dural sinuses appear patent. The paranasal sinuses are clear. IMPRESSION IMPRESSION: T2 signal alteration of the cortex and the adjacent subcortical whitematter in a posterior distribution. The most likely diagnosis is PRES (posterior reversible encephalopathy syndrome). Less likely considerations would be encephalitis and seizure activity. Ash Leroy MD IMG MRI ORDERABLES * EEG, EXTENDED MONITORING; UP TO ONE HOUR PRFM (02/15/2011 8:30 AM EDT) Narrative Ronnie Polk - 02/15/2011 8:30 AM EDT DOUGLAS ALTAMIRANO ? 02/16/2011 ? 3:31:41 PM Routine Adult EEG Report Date of Service: ?? 02/14/2011 Interpreting Physician: Douglas Altamirano MD [Attending] Ronnie Polk III, MD [Resident] Referring Physician: Yusef Lowe BRIEF HISTORY/INDICATION FOR STUDY: 45 yo F with a history of an ill-defined seizure disorder since she was a teenager who presents with an altered sensorium in the setting of metabolic derangements. MEDICATIONS: Lamictal 200mg qd Paroextine 60mg qd Lorazepam Haldol Vancomycin Ciprofloxacin Metronidazole PRIOR EEG: No previous EEG reports were available. METHODS: A 21 channel digitized electroencephalogram was performed in the [facility] Clinical Neurophysiology Laboratory. The 10/20 international system of electrode placement was used and bipolar and referential electrode montages were recorded. The patient was recorded during sleep/coma only and during the activation procedure(s) of photic stimulation. Video was recorded during the session. The duration of the recording was 30 minutes. DESCRIPTIVE TEXT: There was no identifiable background rhythm and no idenitifiable state change. The tracing consisted of diffuse arrhythmic delta along with admixed theta frequencies. Seen at 16:07 during photic stimulation was an approx 30sec episode of head shaking consisting of subtle flexion and extension of the head as well as RLE shaking which appeared rhythmic. ??There was no electrographic correalate with this episode. There were no significant asymmetries of background activity noted. Stage II sleep was not achieved despite provocative measures on the part of the diligent dairy technician. No focal lateralizing epileptiform abnormalities were recorded. Photic Stimulation Photic stimulation using a step-milton increase in photic frequency from 1-21 Hertz resulted in no driving responses or appearance of abnormal activity. INTERPRETATION: This EEG is abnormal due to the presence of diffuse arrhythmic slowing. CLINICAL CORRELATION: This tracing is consistent with an encephalopathy This test was interpreted in the presence of Ronnie Polk III, MD and I am in full agreement with the description and impression noted above. Procedure Note Douglas Altamirano MD - 02/15/2011 8:22 AM EDT Routine Adult EEG Report Date of Service: 02/14/2011 Interpreting Physician: Douglas Altamirano MD [Attending] Ronnie Polk III, MD [Resident] Referring Physician: Yusef Lowe BRIEF HISTORY/INDICATION FOR STUDY: 45 yo F with a history of an ill-defined seizure disorder since she was ateenager who presents with an altered sensorium in the setting ofmetabolic derangements. MEDICATIONS: Lamictal 200mg qd Paroextine 60mg qd Lorazepam Haldol Vancomycin Ciprofloxacin Metronidazole PRIOR EEG: No previous EEG reports were available. METHODS: A 21 channel digitized electroencephalogram was performed in the [facility] Clinical Neurophysiology Laboratory. The 10/20 internationalsystem of electrode placement was used and bipolar and referentialelectrode montages were recorded. The patient was recorded during sleep/coma only and during the activationprocedure(s) of photic stimulation. Video was recorded during the session.The duration of the recording was 30 minutes. DESCRIPTIVE TEXT: There was no identifiable background rhythm and no idenitifiable statechange. The tracing consisted of diffuse arrhythmic delta along withadmixed theta frequencies. Seen at 16:07 during photic stimulation was anapprox 30sec episode of head shaking consisting of subtle flexion andextension of the head as well as RLE shaking which appeared rhythmic.There was no electrographic correalate with this episode. There were nosignificant asymmetries of background activity noted. Stage II sleep wasnot achieved despite provocative measures on the part of the diligentelectroencephalographic ict help desk technician. No focal lateralizing epileptiformabnormalities were recorded. Photic Stimulation Photic stimulation using a step-milton increase in photic frequency from1-21 Hertz resulted in no driving responses or appearance of abnormalactivity. INTERPRETATION: This EEG is abnormal due to the presence of diffuse arrhythmic slowing. CLINICAL CORRELATION: This tracing is consistent with an encephalopathy This test was interpreted in the presence of Ronnie Polk III, MD Caridad am in full agreement with the description and impression noted above. Yusef Lowe MD NEUROLOGY ORDERABLES * (ABNORMAL) Potassium (02/14/2011 6:18 PM EDT) Potassium 3.3(L) 3.5 - 5.0 mmol/L [facility] Comment: Please note: ??Patients with WBC >100,000 may have falsely elevated Potassium levels. ??For accurate Potassium quantification in these patients send serum separator tube (gold top) for subsequent determinations. ??Contact the Clinical Chemistry Laboratory if there are any questions. Blood specimen (specimen) 02/14/2011 6:18 PM EDT 02/14/2011 6:29 PM EDT Alyssa Beltran MD CHEMISTRY ORDERABLES [facility] * (ABNORMAL) Urinalysis with microscopic (02/14/2011 5:28 PM EDT) Glucose UA Negative Negative mg/dL [facility] Protein UA Trace(A) Neg mg/dL [facility] Bilirubin UA Negative Negative mg/dL [facility] Urobilinogen UA Normal mg/dL [facility] ER [facility]ILLENNI[facility] pH UA 5.5 5.0 - 8.0 [facility]ILLENNI[facility] Blood UA Small(A) Neg [facility] Ketones UA Trace(A) Neg mg/dL [facility] Nitrite UA Negative [facility] Leukocytes UA Trace(A) Neg [facility]ILL[facility] Appearance UA Clear Clear [facility] MILLENNIUM Spec [place] UA >1.035(H) 1.002 - 1.030 [facility] MILLENNIUM Color UA Yellow Yellow [facility]ILLEN[facility] RBC UA 1 0 - 4 /HPF [facility]ILLENNI[facility] WBC UA 3 0 - 5 /HPF [facility] MILLENNIUM Squam Epith UA <1 <=4 /HPF [facility]ERNE R MILLENNIUM Urine specimen (specimen) 02/14/2011 5:28 PM EDT 02/14/2011 5:43 PM EDT Ash Leroy MD URINE ORDERABLES Performing Organization Address [facility] Co de Phone Number [facility] APNDYA * Urine culture Indwelling Catheter Urine (02/14/2011 5:27 PM EDT) Urine Culture ? Patient Name: SAHRA COBB ? Ordered By: ASH LEROY ? MR#: [id number] ?LOC: ??ISCU ? /Sex: ?? 3 (45 years), ? Female ? PROCEDURE: Urine Culture ?SOURCE: [facility] ? COLLECTED: 02/14/2011 17:27 ? STARTED: 02/14/2011 18:27 ? FINAL REPORT ? Final Report ? Verified: 15:08 ? No growth (Less than 1,000 cfu/ml). ? ____ CERLUIZA COOLIUM Urine specimen obtained via indwelling urinary catheter (specimen) 02/14/2011 5:27 PM EDT 02/14/2011 6:26 PM EDT Ash Leroy MD MICROBIOLOGY - GENER AL ORDERABLES Performing Organization Address City/[facility] Co de Phone Number JANAY PANDYA * XR CHEST PA OR AP- 1 VIEW (02/14/2011 2:03 PM EDT) Anatomical Region Laterality Modality Chest N/A Radiographic Chandrika ging 02/14/2011 2:03 PM EDT Narrative 02/15/2011 8:08 AM EDT CHEST X-RAY, 02/14/11: ?? CLINICAL HISTORY: ??Fever. ?? TECHNIQUE: ??Portable film of the chest. ?? FINDINGS: ??Allowing for the portable technique, the cardiac size is within normal limits. ??I do not see evidence of failure or pneumonia. ??Postsurgical changes are seen at the cervical spine and the right acromioclavicular joint. Procedure Note Chetan Davenport MD - 02/15/2011 CHEST X-RAY, 02/14/11: CLINICAL HISTORY: Fever. TECHNIQUE: Portable film of the chest. FINDINGS: Allowing for the portable technique, the cardiac size is within normal limits. I do not see evidence of failure or pneumonia.Postsurgical changes are seen at the cervical spine and the right acromioclavicularjoint. Alyssa Beltran MD IMG DX ORDERABLES * CT NECK SOFT TISSUE WITH CONTRAST (02/14/2011 1:57 PM EDT) Anatomical Region Laterality Modality Neck, Head Computed Tomogra phy 02/14/2011 1:57 PM EDT Impressions 02/15/2011 12:13 PM EDT IMPRESSION: ?? Examination is somewhat limited given the degree of motion but no acute processes identified. ?? CT SCAN OF THE NECK: ?? FINDINGS: ??No lymphadenopathy or masses identified. Patient is status post C5 through C7 anterior fusion of the cervical spine. The pharynx, larynx, and hypopharynx appear normal. IMPRESSION: No acute processes identified within the neck. Narrative 02/15/2011 12:13 PM EDT NONCONTRAST HEAD CT SCAN AND A CT SCAN OF THE NECK WITH CONTRAST, 02/14/11: COMPARISON: ??Outside CT scan for comparison dated 02/13/11. ?? CONTRAST: ??110 cc Omni-350 administered. ?? HISTORY: ??Fever, mental status changes, neck pain; look for infection or pathology in the head and neck. HEAD CT SCAN: ?? FINDINGS: ??This examination is marred by patient motion. Three separate scans were obtained through the head because of patient movement. No hemorrhages, masses, mass effect, or extraaxial collections are identified. No osseous abnormalities detected. The ventricles and sulci are of proportional size. ?? Procedure Note Homer Lopez MD - 02/15/[address] SCAN AND A CT SCAN OF THE NECK WITH CONTRAST,02/14/11: COMPARISON: Outside CT scan for comparison dated 02/13/11. CONTRAST: 110 cc Omni-350 administered. HISTORY: Fever, mental status changes, neck pain; look for infection or pathology in the head and neck. HEAD CT SCAN: FINDINGS: This examination is marred by patient motion. Three separatescans were obtained through the head because of patient movement. Nohemorrhages, masses, mass effect, or extraaxial collections are identified. No osseous abnormalities detected. The ventricles and sulci are of proportional size. IMPRESSION IMPRESSION: Examination is somewhat limited given the degree of motion but no acute processes identified. CT SCAN OF THE NECK: FINDINGS: No lymphadenopathy or masses identified. Patient is status postC5 through C7 anterior fusion of the cervical spine. The pharynx, larynx, and hypopharynx appear normal. IMPRESSION: No acute processes identified within the neck. Alyssa Beltran MD IMG CT ORDERABLES * CT HEAD WO CONTRAST (02/14/2011 1:57 PM EDT) Anatomical Region Laterality Modality Head Computed Tomogra phy 02/14/2011 1:57 PM EDT Impressions 02/15/2011 12:13 PM EDT IMPRESSION: ?? Examination is somewhat limited given the degree of motion but no acute processes identified. ?? CT SCAN OF THE NECK: ?? FINDINGS: ??No lymphadenopathy or masses identified. Patient is status post C5 through C7 anterior fusion of the cervical spine. The pharynx, larynx, and hypopharynx appear normal. IMPRESSION: No acute processes identified within the neck. Narrative 02/15/2011 12:13 PM EDT NONCONTRAST HEAD CT SCAN AND A CT SCAN OF THE NECK WITH CONTRAST, 02/14/11: COMPARISON: ??Outside CT scan for comparison dated 02/13/11. ?? CONTRAST: ??110 cc Omni-350 administered. ?? HISTORY: ??Fever, mental status changes, neck pain; look for infection or pathology in the head and neck. HEAD CT SCAN: ?? FINDINGS: ??This examination is marred by patient motion. Three separate scans were obtained through the head because of patient movement. No hemorrhages, masses, mass effect, or extraaxial collections are identified. No osseous abnormalities detected. The ventricles and sulci are of proportional size. ?? Procedure Note Homer Lopez MD - 02/15/[address] SCAN AND A CT SCAN OF THE NECK WITH CONTRAST,02/14/11: COMPARISON: Outside CT scan for comparison dated 02/13/11. CONTRAST: 110 cc Omni-350 administered. HISTORY: Fever, mental status changes, neck pain; look for infection or pathology in the head and neck. HEAD CT SCAN: FINDINGS: This examination is marred by patient motion. Three separatescans were obtained through the head because of patient movement. Nohemorrhages, masses, mass effect, or extraaxial collections are identified. No osseous abnormalities detected. The ventricles and sulci are of proportional size. IMPRESSION IMPRESSION: Examination is somewhat limited given the degree of motion but no acute processes identified. CT SCAN OF THE NECK: FINDINGS: No lymphadenopathy or masses identified. Patient is status postC5 through C7 anterior fusion of the cervical spine. The pharynx, larynx, and hypopharynx appear normal. IMPRESSION: No acute processes identified within the neck. Alyssa Beltran MD IMG CT ORDERABLES * CT ABDOMEN & PELVIS WITH CONTRAST (02/14/2011 1:56 PM EDT) Anatomical Region Laterality Modality Abdomen, Pelvis Computed Tomogra phy 02/14/2011 1:56 PM EDT Impressions 02/15/2011 8:08 AM EDT IMPRESSION: ?? 1. ??I do not see an obvious cause for the patient's fever. ?? 2. ??There does appear to be a slight thickening of the sigmoid colon and rectum. ??In a patient with a clinical presentation suggestive of colitis, the CT images would be consistent. ??Without a strongly suggestive history, I would consider the colon to be normal. ?? 3. ??Extensive vascular calcification. ??I do not see evidence of embolic disease. Narrative 02/15/2011 8:[address] ABDOMEN AND PELVIS, 02/14/11: ?? CLINICAL HISTORY: ??Elevated lactate and fever. ?? TECHNIQUE: ??CT images of the abdomen and pelvis were acquired oral contrast administration and during intravenous administration of 110 cc of Omnipaque-350. ?? FINDINGS: ??Images through the lung bases revealed small areas of dependent atelectasis. ??No effusion or consolidation is identified. ??There is no pericardial collection. ?? ABDOMEN: ??The liver and spleen are normal in appearance as are the kidneys, bilaterally, and the adrenal glands. ??There is no biliary dilatation. ??No pancreatic mass is identified. ??I do not see retroperitoneal adenopathy. ?? PELVIS: ??No free fluid is seen. ??The urinary bladder is normal in appearance. ?? There is a Hills catheter in place. ??Contrast is seen within the colon to the level of the sigmoid colon. ??The sigmoid and rectum appear slightly thick walled. ??This is probably only due to the failure of contrast to reach this portion of the bowel. ??It is a very subtle finding but if the patient is presenting with signs and symptoms suggestive of colitis, it is possible that the CT images could be consistent with that diagnosis. ??In the absence of any history suggestive of colitis, I would consider the appearance to be normal. ?? The surrounding fat is not infiltrated and there is no adjacent abscess or fluid collection. ?? Vascular calcification is present at the aorta and the iliac system bilaterally. ??Also noted is pronounced disc degeneration in the lower lumbar spine. ??I do not see adjacent soft tissue swelling or other CT finding suggestive of disc infection. ?? Procedure Note Chetan Davenport MD - 02/15/2011 CT ABDOMEN AND PELVIS, 02/14/11: CLINICAL HISTORY: Elevated lactate and fever. TECHNIQUE: CT images of the abdomen and pelvis were acquired oralcontrast administration and during intravenous administration of 110 cc of Omnipaque-350. FINDINGS: Images through the lung bases revealed small areas of dependent atelectasis. No effusion or consolidation is identified. There is no pericardial collection. ABDOMEN: The liver and spleen are normal in appearance as are thekidneys, bilaterally, and the adrenal glands. There is no biliary dilatation. No pancreatic mass is identified. I do not see retroperitoneal adenopathy. PELVIS: No free fluid is seen. The urinary bladder is normal inappearance. There is a Hills catheter in place. Contrast is seen within the colon tothe level of the sigmoid colon. The sigmoid and rectum appear slightly thick walled. This is probably only due to the failure of contrast to reachthis portion of the bowel. It is a very subtle finding but if the patient is presenting with signs and symptoms suggestive of colitis, it is possiblethat the CT images could be consistent with that diagnosis. In the absence ofany history suggestive of colitis, I would consider the appearance to benormal. The surrounding fat is not infiltrated and there is no adjacent abscess or fluid collection. Vascular calcification is present at the aorta and the iliac system bilaterally. Also noted is pronounced disc degeneration in the lowerlumbar spine. I do not see adjacent soft tissue swelling or other CT finding suggestive of disc infection. IMPRESSION IMPRESSION: 1. I do not see an obvious cause for the patient's fever. 2. There does appear to be a slight thickening of the sigmoid colon and rectum. In a patient with a clinical presentation suggestive of colitis,the CT images would be consistent. Without a strongly suggestive history, Iwould consider the colon to be normal. 3. Extensive vascular calcification. I do not see evidence of embolicdisease. Alyssa Beltran MD IMG CT ORDERABLES * EKG 12-LEAD Is a rhythm strip needed?: No; Reason for Exam:: Abnormal EKG (02/14/2011 5:01 AM EDT) Ventricular rate 92 BPM MUSE SYSTEM Atrial Rate 92 BPM MUSE SYSTEM P-R Interval 108 ms MUSE SYSTEM QRS Duration 88 ms MUSE SYSTEM Q-T Interval 414 ms MUSE SYSTEM QTC Calculated (Bezet) 511 ms MUSE SYSTEM Calculated P [place] 35 degrees MUSE SYSTEM Calculated R [place] 4 degrees MUSE SYSTEM Calculated T [place] 44 degrees MUSE SYSTEM INTERPRETATION Sinus rhythm with short GA Prolonged QT Abnormal ECG No previous ECGs available Confirmed by MD DOUG, YENI ([id number]) on 02/14/2011 4:28:28 PM MUSE SYSTEM 02/14/2011 5:01 AM EDT 02/14/2011 4:28 PM EDT Alyssa Beltran MD ECG ORDERABLES MUSE SYSTEM * Blood culture (02/14/2011 4:45 AM EDT) Blood Culture ? Patient Name: SAHRA COBB ? Ordered By: ALYSSA BELTRAN ? MR#: [id number] ?LOC: ??1EST ? /Sex: ??1965 (45 years), ? Female ? PROCEDURE: Blood Culture ?SOURCE: Blood ? COLLECTED: 02/14/2011 04:45 ? STARTED: 02/14/2011 06:40 ? FINAL REPORT ? Final Report ? Verified:2010 15:06 ? No growth at 5 days. ? PRELIMINARY REPORT ? Preliminary Report ? Verified:2010 07:06 ? No growth at 4 days. ? CERNER MILLENNIUM Blood specimen (specimen) 02/14/2011 4:45 AM EDT 02/14/2011 6:40 AM EDT Alyssa Beltran MD MICROBIOLOGY - BLOOD ORDERABLES Performing Organization Address [facility]/ZIP Co de Phone Number [facility] * Hepatitis C Antibody (02/14/2011 4:45 AM EDT) Hepatitis C Ab Negative Negative [facility] Blood specimen (specimen) 02/14/2011 4:45 AM EDT 02/14/2011 6:33 AM EDT Alyssa Beltran MD IMMUNOLOGY ORDERABLE S Performing Organization Address [facility] Co de Phone Number [facility] * Hepatitis B Surface Antigen (02/14/2011 4:45 AM EDT) HepB Surface Ag Negative Negative [facility] Blood specimen (specimen) 02/14/2011 4:45 AM EDT 02/14/2011 6:33 AM EDT Alyssa Beltran MD CHEMISTRY ORDERABLES Performing Organization Address [facility] de Phone Number [facility] * Hepatitis B Surface Antibody (02/14/2011 4:45 AM EDT) HepB Surface Ab Negative [facility] Comment: A positive test indicates a value > 10 mIU/ml consistent with protective immunity. Blood specimen (specimen) 02/14/2011 4:45 AM EDT 02/14/2011 6:33 AM EDT Alyssa Beltran MD IMMUNOLOGY ORDERABLE S Performing Organization Address [facility] Co de Phone Number [facility] * Hepatitis B Core Antibody, Total (02/14/2011 4:45 AM EDT) Hep B Core Ab Negative Negative [facility] Blood specimen (specimen) 02/14/2011 4:45 AM EDT 02/14/2011 6:33 AM EDT Alyssa Beltran MD CHEMISTRY ORDERABLES Performing Organization Address City/[facility]/ZIP Co de Phone Number [facility] * HIV (02/14/2011 4:45 AM EDT) Pathologist [facility] HIV 1/2 Ab Negative [facility] Blood specimen (specimen) 02/14/2011 4:45 AM EDT 02/14/2011 6:33 AM EDT Alyssa Beltran MD IMMUNOLOGY ORDERABLE S Performing Organization Address [facility] de Phone Number [facility] * (ABNORMAL) Lactic acid, plasma (02/14/2011 4:40 AM EDT) Pathologist [facility] Lactate 4.2(H) 0.5 - 2.2 mmol/L [facility] Blood specimen (specimen) 02/14/2011 4:40 AM EDT 02/14/2011 4:47 AM EDT Alyssa Beltran MD CHEMISTRY ORDERABLES Performing Organization Address [facility] de Phone Number [facility] * THC (MARIJUANA), URINE, CONFIRMATION (02/14/2011 4:34 AM EDT) Pathologist [facility] U THC Conf ? HI ? Expected Test ? Result ?LO ??Units ??Values Drug of Abuse, THC Conf, U ??GC/MS Confirmation - ? Positive ?THC ??THC Carboxylic Acid ?360 ? ng/mL ??Cutoff: <3 This report is intended for use in clinical monitoring and management of patients. It is not intended for use in employment-relat ed drug testing. Test Performed by: [employer] [address], [place] [address] Black Puller: Loraine Dawn, Ph.D. JANAY PANDYA Urine specimen (specimen) 02/14/2011 4:34 AM EDT 02/15/2011 9:29 AM EDT Alyssa Beltran MD URINE ORDERABLES Performing Organization Address City/State/[facility] Co de Phone Number [facility] * BENZODIAZEPINE, QUANTITATIVE, URINE (02/14/2011 4:34 AM EDT) U Benzo Conf ? HI ? Expected Test ? Result ?LO ??Units ??Values Drug of Abuse, Benzo Conf, U ??GC/MS Confirmation - ? Positive ?Benzodiazepine ??Lorazepam ?396 ? ng/mL ??Cutoff: <100 ??Nordiazepam ?Negative ?ng/mL ??Cutoff: <100 ??Oxazepam ? Negative ?ng/mL ??Cutoff: <100 ??Temazepam ?Negative ?ng/mL ??Cutoff: <100 ??BU-Rwtqf-Usppx zepam ?Negative ?ng/mL ??Cutoff: <100 ??2-ZO-Tamhvgpht m ?Negative ?ng/mL ??Cutoff: <100 ??8-BE-Ekvvgqhza epam ? Negative ?ng/mL ??Cutoff: <50 ??Alpha OH-Alprazolam ?168 ? ng/mL ??Cutoff: <100 ??Zfvdv-MC-Xdyaj olam ? Negative ?ng/mL ??Cutoff: <100 This report is intended for use in clinical monitoring and management of patients. It is not intended for use in employment-relat ed drug testing. Test Performed by: [place] [address] Black Puller: Loraine Dawn, Ph.D. [facility] Urine specimen (specimen) 02/14/2011 4:34 AM EDT 02/15/2011 9:29 AM EDT Alyssa eBltran MD URINE ORDERABLES [facility] * Drug of Abuse Screen with Confirmation (send out) (02/14/2011 4:34 AM EDT) U ROSA w/Conf ? HI ? Expected Test ? Result ?LO ??Units ??Values [facility] Drug Screen, U ??Amphetamines ? Negative ?ng/mL ??Cutoff: 1000 ??MDMA (Ecstasy) ? Negative ?ng/mL ??Cutoff: ??500 ??Barbiturates ? Negative ?ng/mL ??Cutoff: ??200 ??Benzodiazepine s ?Positive ?ng/mL ??Cutoff: ??200 Drug confirmation ordered by reflex. ??Cocaine Metabolite ? Negative ?ng/mL ??Cutoff: ??300 ??Methadone ?Negative ?ng/mL ??Cutoff: ??300 ??Opiates ?Negative ?ng/mL ??Cutoff: ??300 ??Phencyclidine ?Negative ?ng/mL ??Cutoff: ?? 25 ??Propoxyphene ? Negative ?ng/mL ??Cutoff: ??300 ??Tetrahydrocann abinols ?Positive ?ng/mL ??Cutoff: ?? 50 Drug confirmation ordered by reflex. ??Ethanol ?Negative ?mg/dL ??Cutoff: ?? 10 ??Confirmation - Opiates ?? Positive Discrepancy noted between immunoassay result and GC/MS result. The GC/MS result is the definitive result. ??Codeine ?Negative ?ng/mL ??<100 ??Hydrocodone ?Negative ?ng/mL ??<100 ??Hydromorphone ?Negative ?ng/mL ??<100 ??Morphine ? Negative ?ng/mL ??<100 ??Oxycodone ?Negative ?ng/mL ??<100 ??Oxymorphone ?189 ? ng/mL ??<100 Test Performed by: [facility] [address] Black Puller: Loraine Dawn, Ph.D. JANAY CERVANTESCASEY Urine specimen (specimen) 02/14/2011 4:34 AM EDT 02/15/2011 9:29 AM EDT Alyssa Beltran MD URINE ORDERABLES [facility] [place] * Urine culture Indwelling Catheter Urine (02/14/2011 4:34 AM EDT) Urine Culture ? Patient Name: SAHRA COBB ? Ordered By: ALYSSA BELTRAN ? MR#: [id number] ?LOC: ??ISCU ? /Sex: ?? 3 (45 years), ? Female ? PROCEDURE: Urine Culture ?SOURCE: U [facility] ? COLLECTED: 02/14/2011 04:34 ? STARTED: 02/14/2011 07:30 ? FINAL REPORT ? Final Report ? Verified: 07:49 ? No growth (Less than 1,000 cfu/ml). ? ____ CERNER MILLENNIUM Urine specimen obtained via indwelling urinary catheter (specimen) 02/14/2011 4:34 AM EDT 02/14/2011 7:30 AM EDT Alyssa Beltran MD MICROBIOLOGY - GENER AL ORDERABLES Performing Organization Address City/[facility]/ZIP Co de Phone Number [facility] * (ABNORMAL) Urinalysis (on admission) (02/14/2011 4:34 AM EDT) Glucose UA Negative Negative mg/dL CERNER MILLENNIUM Protein UA Trace(A) Neg mg/dL CERNER MILLENNIUM Bilirubin UA Negative Negative mg/dL CERNER MILLENNIUM Urobilinogen UA Normal mg/dL CERN ER MILLENNIUM pH UA 6.0 5.0 - 8.0 CERNER MILLENNIUM Blood UA Small(A) Neg CERNER MILLENNIUM Ketones UA 10(A) Neg mg/dL CERNER MILLENNIUM Nitrite UA Negative CERNER MILLENNIUM Leukocytes UA Negative mcL CERNER MILLENNIUM Appearance UA Cloudy(A) Clear CERNER MILLENNIUM Spec [place] UA 1.012 1.002 - 1.030 CERNER MILLENNIUM Color UA Yellow Yellow CERNER MILLENNIUM RBC UA 3 0 - 4 /HPF CERNER MILLENNIUM WBC UA Not Present 0 - 5 CERNER MILLENNIUM Amorph Irena UA Moderate /HPF CERNE R MILLENNIUM Urine specimen (specimen) 02/14/2011 4:34 AM EDT 02/14/2011 5:01 AM EDT Alyssa Beltran MD URINE ORDERABLES [facility] * REFLEX LAB-SCAN, PERIPHERAL BLOOD (02/14/2011 4:30 AM EDT) Plat Estimate Normal CERNER MILLENNIUM RBC Morphology Abnormal CERNE R MILLENNIUM Ovalocytes 1-5 /HPF CERNER MILLENNIUM Blood specimen (specimen) 02/14/2011 4:30 AM EDT 02/14/2011 4:31 AM EDT Alyssa Beltran MD HEMATOLOGY ORDERABLE S JANAY CERVANTESENNIUM * (ABNORMAL) REFLEX LAB-A-DIFF (02/14/2011 4:30 AM EDT) Neutrophils % 92.6(H) 34.0 - 71.0 % CERNER MILLENNIUM Neutr Abs (ANC) 18.96(H) 1.50 - 6.30 x10(3)/mc L CERNER MILLENNIUM Lymphocytes % 6.4(L) 19.0 - 53.0 % CERNER MILLENNIUM Lymphocytes Abs 1.3 1.0 - 3.6 x10(3)/mc L CERNER MILLENNIUM Monocytes % 0.6(L) 4.0 - 13.0 % CERNER MILLENNIUM Monocyte Abs 0.1(L) 0.2 - 1.0 x10(3)/mc L CERNER MILLENNIUM Eosinophils % 0.0 0.0 - 7.0 % CERNER MILLENNIUM Eosinophils Abs 0.0 0.0 - 0.5 x10(3)/mc L CERNER MILLENNIUM Basophils % 0.1 0.0 - 2.0 % CERNER MILLENNIUM Basophils Abs 0.0 0.0 - 0.2 x10(3)/mc L CERNER MILLENNIUM Immature Gran % 0.30 0.00 - 0.66 % CERNER MILLENNIUM Comment: Immature granulocytes(IG's)percentage and absolute count will include metamyelocytes, myelocytes, and promyelocytes. Blood smears from CBCs yielding IG's will be scanned manually for concordance. If this scan disagrees with the automated IG or if promyelocytes are noted, a manual differential will be performed. Patsy Gran Abs 0.06(H) 0.00 - 0.05 x10(3)/mc L CERNER MILLENNIUM Blood specimen (specimen) 02/14/2011 4:30 AM EDT 02/14/2011 4:31 AM EDT Alyssa Beltran MD HEMATOLOGY ORDERABLE S Performing Organization Address [facility] de Phone Number [employer]UI[facility] [place] * (ABNORMAL) Cardiac Enzymes (02/14/2011 4:30 AM EDT) Troponin-T 0.05(H) <=0.03 ng/mL [facility] [place] [facility] Comment: 0.03 ng/mL: Represents the 99th percentile upper reference limit for normals. >0.03 ng/mL: Elevated cardiac troponin T level indicative of myocardial damage. Diagnosis of acute, evolving or recent MD requires a typical rise and gradual fall [...] of suspicion is high. Reference: [Myocardial infarction redefined a consensus document of the Joint Society of Cardiology/[place] [employer] Committee for the redefinition of myocardial infarction. Journal of the [place] College [employer] 2000; 36: 959-969] CK, Total 506(H) 0 - 160 unit/L [facility] Blood specimen (specimen) 02/14/2011 4:30 AM EDT 02/14/2011 4:31 AM EDT Alyssa Beltran MD CHEMISTRY ORDERABLES Performing Organization Address [facility] de Phone Number JANAY CERVANTESReduxNATHAN * (ABNORMAL) APTT (02/14/2011 4:30 AM EDT) PTT 24(L) 25 - 37 sec [facility] [place] [facility] Comment: Recommended therapeutic PTT range for full dose unfractionated heparin is 80-114 seconds. Blood specimen (specimen) 02/14/2011 4:30 AM EDT 02/14/2011 4:31 AM EDT Alyssa Beltran MD HEMATOLOGY ORDERABLE S Performing Organization Address [facility] Co de Phone Number CERNER MILLENNIUM * Protime-INR (02/14/2011 4:30 AM EDT) PT 13.2 12.3 - 14.7 sec CERNER MILLENNIUM Comment: [facility] Transfusion Committee Guidelines: INR less than 2.0, PTT less than OR equal to 43.5 seconds, or Fibrinogen greater than or equal to 100 mg/dl indicate adequate procoagulant activity for hemostasis in patients without underlying bleeding disorders. INR 1.0 0.9 - 1.1 CERNER MILLENNIUM Blood specimen (specimen) 02/14/2011 4:30 AM EDT 02/14/2011 4:31 AM EDT Alyssa Beltran MD HEMATOLOGY ORDERABLE S Performing Organization Address [facility] de Phone Number CERNER MILLENNIUM * (ABNORMAL) Hepatic function panel (02/14/2011 4:30 AM EDT) Total Protein 7.5 6.4 - 8.3 gm/dL CERNER MILLENNIUM Albumin 4.2 3.2 - 5.2 gm/dL CERNER MILLENNIUM AST 40(H) 0 - 30 unit/L CERNER MILLENNIUM ALT 37(H) 0 - 30 unit/L CERNER MILLENNIUM Alk Phos 127(H) 40 - 104 unit/L CERNER MILLENNIUM Total Bilirubin 0.5 0.2 - 1.3 mg/dL CERNER MILLENNIUM Bili, Direct 0.1 0.0 - 0.3 mg/dL CERNER MILLENNIUM Blood specimen (specimen) 02/14/2011 4:30 AM EDT 02/14/2011 4:31 AM EDT Alyssa Beltran MD CHEMISTRY ORDERABLES Performing Organization Address [facility] Co de Phone Number CERLUIZA MILLENNIUM * (ABNORMAL) Phosphorus (02/14/2011 4:30 AM EDT) Phosphorus 1.9(L) 2.5 - 4.5 mg/dL CERNER MILLENNIUM Blood specimen (specimen) 02/14/2011 4:30 AM EDT 02/14/2011 4:31 AM EDT Alyssa Beltran MD CHEMISTRY ORDERABLES Performing Organization Address [facility] de Phone Number CERNER MILLENNIUM * (ABNORMAL) Magnesium (02/14/2011 4:30 AM EDT) Magnesium 0.66(L) 0.69 - 1.07 mmol/L CERNER MILLENNIUM Blood specimen (specimen) 02/14/2011 4:30 AM EDT 02/14/2011 4:31 AM EDT Alyssa Beltran MD CHEMISTRY ORDERABLES Performing Organization Address [facility] de Phone Number CERNER MILLENNIUM * (ABNORMAL) Basic metabolic panel (02/14/2011 4:30 AM EDT) Glucose Lvl 146 60 - 199 mg/dL CERNER MILLENNIUM Comment:Diabetes: >=200 mg/d L plus symptoms BUN 13 8 - 18 mg/dL CERNER MILLENNIUM Creatinine 0.74 0.70 - 1.20 mg/dL CERNER MILLENNIUM Sodium 137 135 - 145 mmol/L CERNER MILLENNIUM Potassium 3.1(L) 3.5 - 5.0 mmol/L CERNER MILLENNIUM Comment: Please note: ??Patients with WBC >100,000 may have falsely elevated Potassium levels. ??For accurate Potassium quantification in these patients send serum separator tube (gold top) for subsequent determinations. ??Contact the Clinical Chemistry Laboratory if there are any questions. Chloride 103 98 - 107 mmol/L CERNER MILLENNIUM CO2 16(L) 22 - 31 mmol/L CERNER MILLENNIUM Anion Gap 18(H) 5 - 15 mmol/L CERNER MILLENNIUM Calcium 8.7 8.5 - 10.5 mg/dL CERNER MILLENNIUM Estimated GFR >60 >=60 CERNER MILLENNIUM Comment: The National Kidney Disease Education Program (NKDEP) has recommended all laboratories report estimated GFR (eGFR) along with plasma creatinine measurements to assist you with recognition of early kidney disease. Caveats: ??Plasma creatinine should be at steady-state (unchanged within the past week). For patients multiply eGFR by 1.2.MDRD equation has not been validated for pediatric patients and is only valid for patients with age >= 18 years. At present, NKDEP does NOT recommend using the MDRD equation for drug dosing purposes and pharmacists should continue to use their current dosing methods. In addition, numerical eGFR values greater than 60 ml/min/1.73 square meters should be treated as > 60, and not an exact number due to greater inaccuracies at these higher values. Per NKDEP, they classify normal renal function as any GFR >60ml/min/1.73 square meters; chronic kidney disease when GFR <60, and renal failure when GFR <15. ??This calculation may not be valid for patients with atypical muscle mass (very lean or obese), acute renal failure, and in patients with diabetic kidney disease. References: http://nkdep.nih.gov/resources/NKDEP_Suggestn4Labs_0606_508.pdf http://www.kidney.org/professionals/kls/pdf/faq_gfr.pdf Blood specimen (specimen) 02/14/2011 4:30 AM EDT 02/14/2011 4:31 AM EDT Alyssa Beltran MD CHEMISTRY ORDERABLES [facility] * (ABNORMAL) CBC (with Diff) (02/14/2011 4:30 AM EDT) WBC 20.5(H) 4.0 - 10.0 x10(3)/mcL CERNER MILLENNIUM RBC 4.64 3.93 - 5.22 x10(6)/mcL CERNER MILLENNIUM Hemoglobin 13.9 11.2 - 15.7 gm/dL CERNER MILLENNIUM Hematocrit 40.1 34.0 - 45.0 % CERNER MILLENNIUM MCV 86.4 79.0 - 94.0 fL CERNER MILLENNIUM MCH 30.0 26.6 - 32.2 pg CERNER MILLENNIUM MCHC 34.7 32.0 - 36.5 gm/dL CERNER MILLENNIUM Platelets 279 145 - 370 x10(3)/mcL JANAY CERVANTESENNIUM RDWSD 40.7 35.0 - 46.0 fL JANAY CERVANTESENNIUM RDWCV 12.8 10.9 - 14.4 % JANAY CERVANTESENNIUM MPV 10.6 9.0 - 12.0 fL JANAY COOLIUM Blood specimen (specimen) 02/14/2011 4:30 AM EDT 02/14/2011 4:31 AM EDT Alyssa Beltran MD HEMATOLOGY ORDERABLE S JANAY PANDYA documented in this encounter Visit Diagnoses Diagnosis PRES (posterior reversible encephalopathy syndrome)- Primary Other encephalopathy Mental status alteration Altered mental status Cardiac enzymes elevated Other nonspecific abnormal serum enzyme levels Altered mental status Other nonspecific abnormal serum enzyme levels Seizure Other convulsions Fever Fever, unspecified Confusion Unspecified psychosis Abdominal pain Abdominal pain, unspecified site documented in this encounter Administered Medications Inactive Administered Medications - up to 3 most recent administrations Medication Order MAR Action Action Date Dose Rate Site acetaminophen (TYLENOL) tablet 650 mg 650 mg, Oral, EVERY 6 HOURS PRN, Starting on Tue02/14/11 at 0414, Until Tue02/17/11 at 1437, Pain, Fever, Administer for temperature greater than or equal to 38.2 degrees celsius, Routine Given 02/16/2011 8:15 PM EDT 650 mg acyclovir (ZOVIRAX) 705 mg in sodium chloride 0.9% 164.1 mL 705 mg (10 mg/kg/dose ? 70.3 kg), Intravenous, EVERY 8 HOURS SCHEDULED, First dose on Tue02/14/11 at 1700, Until Discontinued, Administer over 60 Minutes Given 02/17/2011 5:11 AM EDT 705 mg 164. 1 mL/hr Given 02/16/2011 9:45 PM EDT 705 mg 164.1 mL/hr Given 02/16/2011 2:25 PM EDT 705 mg 164.1 mL/hr aspirin EC tablet 81 mg 81 mg, Oral, DAILY, First dose on Tue02/17/11 at 0900, Until Discontinued, Routine Given 02/17/2011 9:13 AM EDT 81 mg ciprofloxacin (CIPRO) 400mg in dextrose 5% 200mL 400 mg, Intravenous, EVERY 12 HOURS SCHEDULED (2 times per day), First dose on Tue02/14/11 at 0900, Until Discontinued, Administer over 60 Minutes, Restricted Antibiotic: Please indicate the most appropriate choice: ID Approval by Alyssa Beltran Given 02/15/2011 9:00 AM EDT 400 m g 200 mL/hr Given 02/14/2011 9:00 PM EDT 400 mg 200 mL/hr Given 02/14/2011 9:59 AM EDT 400 mg 200 mL/hr docusate sodium (COLACE) capsule 100 mg 100 mg, Oral, 2 TIMES DAILY, First dose on Tue02/14/11 at 0900, Until Discontinued, Routine Given 02/17/2011 9:17 AM EDT 100 mg gadopentetate dimeglumine (MAGNEVIST) 10 mmol/20 mL (469.01 mg/mL) injection 13.48 mL 13.48 mL (0.2 mL/kg/dose ? 67.4 kg), Intravenous, ONCE PRN, 1 dose, Starting on Tue02/15/11 at 0917, Until Tue02/15/11 at 0924, Per Protocol, Routine Given 02/15/2011 9:24 AM EDT 13 mLs haloperidol lactate (HALDOL) injection 5 mg 5 mg, Intravenous, ONCE, 1 dose, On Tue02/14/11 at 1330, Routine Given 02/14/2011 1:30 PM EDT 5 mg heparin (porcine) subcutaneous injection 5,000 Units 5,000 Units, Subcutaneous, EVERY 8 HOURS SCHEDULED, First dose on Tue02/14/11 at 0600, Until Discontinued, Routine Given 02/17/2011 5:11 AM EDT 5,000 Unit s Given 02/16/2011 9:45 PM EDT 5,000 Units Given 02/16/2011 2:25 PM EDT 5,000 Units iohexol (OMNIPAQUE) 350 mg/mL injection 49,000 mg 49,000 mg (140 mL), Intravenous, ONCE PRN, 1 dose, Starting on Tue02/14/11 at 1406, Until Tue02/14/11 at 1406, Per Protocol, Routine Given 02/14/2011 2:06 PM EDT 49,000 mg lamoTRIgine (LAMICTAL) tablet 200 mg 200 mg, Oral, DAILY, First dose on Tue02/14/11 at 0900, Until Discontinued, Routine Given 02/17/2011 9:14 AM EDT 200 mg Given 02/16/2011 9:00 AM EDT 200 mg Given 02/15/2011 9:00 AM EDT 200 mg leveTIRAcetam (KEPPRA) 1,000 mg in sodium chloride 0.9% 110 mL 1,000 mg (1 g), Intravenous, at 440 mL/hr, EVERY 12 HOURS SCHEDULED (2 times per day), First dose on Tue02/14/11 at 2100, Until Discontinued, Routine Given 02/16/2011 9:00 AM EDT 1,000 mg 440 mL/hr Given 02/15/2011 9:00 PM EDT 1,000 mg 440 mL/hr Given 02/15/2011 9:00 AM EDT 1,000 mg 440 mL/hr leveTIRAcetam (KEPPRA) 1,000 mg in sodium chloride 0.9% 110 mL 1,000 mg (1 g), Intravenous, at 440 mL/hr, ONCE, 1 dose, On Tue02/14/11 at 1630, Routine Given 02/14/2011 6:00 PM EDT 1,000 mg 440 mL /hr LORazepam (ATIVAN) 2 mg/mL injection 1 dose, Starting on Tue02/14/11 at 0343, Until Tue02/14/11 at 0400, TED ZAMUDIO: Cabinet Override LORazepam (ATIVAN) injection 0.5-1 mg 0.5-1 mg, Intravenous, 2 TIMES DAILY PRN, Starting on Tue02/14/11 at 1013, Until Tue02/17/11 at 1437, Anxiety, Routine Given 02/16/2011 10:59 PM EDT 1 mg Given 02/14/2011 10:30 AM EDT 1 mg LORazepam (ATIVAN) injection 0.5-1 mg 0.5-1 mg, Intravenous, ONCE, 1 dose, On Tue02/14/11 at 1145, Routine Given 02/14/2011 11:45 AM EDT 1 mg LORazepam (ATIVAN) injection 1-2 mg 1-2 mg, Intravenous, ONCE, 1 dose, On Tue02/14/11 at 0445, Routine Given 02/14/2011 4:00 AM EDT 2 mg Right Arm metoprolol succinate (TOPROL-XL) XL tablet 50 mg 50 mg, Oral, DAILY, First dose on Tue02/17/11 at 0900, Until Discontinued, Routine Given 02/17/2011 9:43 AM EDT 50 mg metoprolol tartrate (LOPRESSOR) tablet 12.5 mg 12.5 mg, Oral, EVERY 6 HOURS SCHEDULED, First dose (after last modification) on Tue02/16/11 at 1200, Until Discontinued, Hold for SBP < 90 or HR < 60, Routine Given 02/17/2011 6:00 AM EDT 12.5 mg Given 02/17/2011 12:07 AM EDT 12.5 mg Given 02/16/2011 11:43 AM EDT 12.5 mg metoprolol tartrate (LOPRESSOR) tablet 25 mg 25 mg, Oral, EVERY 6 HOURS SCHEDULED, First dose on Tue02/15/11 at 1315, Until Discontinued, Hold for SBP < 90 or HR < 60, Routine Given 02/16/2011 6:20 AM EDT 25 mg Given 02/16/2011 12:30 AM EDT 25 mg Given 02/15/2011 6:00 PM EDT 25 mg metroNIDAZOLE (FLAGYL) 500 mg in sodium chloride 0.9% 100 mL 500 mg, Intravenous, EVERY 8 HOURS SCHEDULED, First dose on Tue02/14/11 at 0700, Until Discontinued, Administer over 30 Minutes Given 02/15/2011 6:23 AM EDT 500 mg 200 mL/hr Given 02/14/2011 10:00 PM EDT 500 mg 200 mL/hr Given 02/14/2011 2:00 PM EDT 500 mg 200 mL/hr ondansetron (ZOFRAN) injection 4 mg 4 mg, Intravenous, EVERY 8 HOURS PRN, Starting on Tue02/14/11 at 0414, Until Tue02/17/11 at 1437, Nausea, Vomiting, May repeat times one in 30 minutes if ineffective , Routine Given 02/15/2011 6:27 AM EDT 4 mg OXYcodone (ROXICODONE) immediate release tablet 10-15 mg 10-15 mg, Oral, EVERY 4 HOURS PRN, Starting on Tue02/15/11 at 1616, Until Tue02/17/11 at 1437, Pain, Routine Given 02/17/2011 9:42 AM EDT 15 mg Given 02/17/2011 5:34 AM EDT 15 mg Given 02/17/2011 1:30 AM EDT 15 mg PARoxetine (PAXIL) tablet 60 mg 60 mg, Oral, EVERY MORNING, First dose on Tue02/14/11 at 0700, Until Discontinued, Routine Given 02/17/2011 6:27 AM EDT 60 mg Given 02/16/2011 6:45 AM EDT 60 mg Given 02/15/2011 6:55 AM EDT 60 mg potassium chloride 10 mEq in 100 mL 10 mEq, Intravenous, EVERY 1 HOUR PRN, Starting on Tue02/14/11 at 0534, Until Tue02/15/11 at 1309, Administer over 60 Minutes, hypokalemia, Administer 2 times 10 meq/100 mL bags, each over 30-60 minutes for serum potassium (mMol/L) of 3.9 - 4 New Bag 02/14/2011 6:00 AM EDT 10 mEq 100 mL/hr potassium chloride 10 mEq in 100 mL 10 mEq, Intravenous, EVERY 1 HOUR PRN, Starting on Tue02/14/11 at 0534, Until Tue02/15/11 at 1309, Administer over 60 Minutes, hypokalemia, Administer 4 times 10 meq/100 mL bags, each over 30-60 minutes for serum potassium (mMol/L) of 3.3 - 3.8 New Bag 02/14/2011 7:44 PM EDT 10 mEq 100 mL/hr potassium chloride 10 mEq with lidocaine (1%) 1 mL in sodium chloride 0.9% 100 mL IV 10 mEq, Intravenous, EVERY HOUR, 6 doses, First dose on Tue02/15/11 at 1400, Last dose on Tue02/15/11 at 1900, Administer over 60 Minutes Given 02/15/2011 9:40 PM EDT 10 mEq Given 02/15/2011 7:45 PM EDT 10 mEq Given 02/15/2011 5:00 PM EDT 10 mEq potassium chloride SA (K-DUR;KLOR-CON) tablet 40 mEq 40 mEq, Oral, EVERY 2 HOURS, 2 doses, First dose on Tue02/15/11 at 1400, Last dose on Tue02/15/11 at 1600, 20 mEq tablet may be dissolved in water for administration, Routine Given 02/15/2011 4:00 PM EDT 40 mEq Given 02/15/2011 2:00 PM EDT 40 mEq sodium chloride 0.9% infusion 100 mL/hr, Intravenous, CONTINUOUS, Starting on Tue02/14/11 at 0445, Until Tue02/16/11 at 0934 New Bag 02/14/2011 4:45 AM EDT 100 mL/hr 100 mL/hr vancomycin 1 g in sodium chloride 0.9% 250 mL 1,000 mg (1 g), Intravenous, at 166.7 mL/hr, EVERY 12 HOURS, First dose on Tue02/14/11 at 0700, Until Discontinued, Routine Given 02/15/2011 9:00 AM EDT 1,000 mg 166.7 mL/ hr Given 02/14/2011 9:00 PM EDT 1,000 mg 166.7 mL/hr Given 02/14/2011 11:15 AM EDT 1,000 mg 166.7 mL/hr documented in this encounter Active and Recently Administered Medications Times are shown in EDT. Scheduled Medication Order 02/15/2011 02/16/2011 02/17/2011 acyclovir (ZOVIRAX) 705 mg in sodium chloride 0.9% 164.1 mL (CANCELED) 705 mg (10 mg/kg/dose ? 70.3 kg), Intravenous, EVERY 8 HOURS SCHEDULED, First dose on Tue02/14/11 at 1700, Until Discontinued, Administer over 60 Minutes 0600 (Given - Provider: Luis Armando Siu, K[place])1400 (Given - Provider: Jennyfer Robin, [place])2230 (Given - Provider: Shelbie Bearden, [place]) 0620 (Given - Provider: Shelbie Bearden, KORE[place])1425 (Given - Provider: Kori Rivera, [place])2145 (Given - Provider: Elham Ling, [place]) 0511 (Given - Provider: Mary Noe, [place]) aspirin EC tablet 81 mg 81 mg, Oral, DAILY, First dose on Tue02/17/11 at 0900, Until Discontinued, Routine 912 (Given - Provider: Vivian Kendall, [place]) ciprofloxacin (CIPRO) 400mg in dextrose 5% 200mL (CANCELED) 400 mg, Intravenous, EVERY 12 HOURS SCHEDULED (2 times per day), First dose on Tue02/14/11 at 0900, Until Discontinued, Administer over 60 Minutes, Restricted Antibiotic: Please indicate the most appropriate choice: ID Approval by Alyssa Beltran [phone] (Given - Provider: Jennyfer Robin RN) docusate sodium (COLACE) capsule 100 mg (CANCELED) 100 mg, Oral, 2 TIMES DAILY, First dose on 02/14/11 at 0900, Until Discontinued, Routine 0900 (Hold - Provider: Jennyfer Robin RN - Reason: See comment - Comment: pt. having loose stools.)2100 (Hold - Provider: Shelbie Bearden RN - Reason: Order parameters not met - Comment: patient had small loose BM X 3) 899 (Not Given - Provider: Angeles Morris, KOREY - Reason: Contraindicated)2099 (Not Given - Provider: Elham Ling RN - Reason: Contraindicated) 916 (Given - Provider: Vivian Kendall, [place]) heparin (porcine) subcutaneous injection 5,000 Units (CANCELED) 5,000 Units, Subcutaneous, EVERY 8 HOURS SCHEDULED, First dose on 02/14/11 at 0600, Until Discontinued, Routine 0600 (Given - Provider: Luis Armando Siu RN)1400 (Given - Provider: Jennyfer Robin RN)2200 (Given - Provider: Shelbie Bearden, KOREY) 0620 (Given - Provider: Shelbie Bearden, KOREY)1425 (Given - Provider: Kori Rivera RN)2145 (Given - Provider: Elham Ling, [place]) 0511 (Given - Provider: Mary Noe RN) lamoTRIgine (LAMICTAL) tablet 200 mg (CANCELED) 200 mg, Oral, DAILY, First dose on 02/14/11 at 0900, Until Discontinued, Routine 0900 (Given - Provider: Jennyfer Robin RN) 0900 (Given - Provider: Angeles Morris, KORE[place]) 0914 (Given - Provider: Vivian Kendall, [place]) leveTIRAcetam (KEPPRA) 1,000 mg in sodium chloride 0.9% 110 mL (CANCELED) 1,000 mg (1 g), Intravenous, at 440 mL/hr, EVERY 12 HOURS SCHEDULED (2 times per day), First dose on 02/14/11 at 2100, Until Discontinued, Routine 0900 (Given - Provider: Jennyfer Robin RN)2100 (Given - Provider: Shelbie Bearden, KOREY) 0900 (Given - Provider: Angeles Morris, KOREY)0944 (Not Given - Provider: Angeles Morris RN - Reason: Entered in Error) metoprolol succinate (TOPROL-XL) XL tablet 50 mg 50 mg, Oral, DAILY, First dose on Tue02/17/11 at 0900, Until Discontinued, Routine 0943 (Given - Provider: Vivian Kendall RN) metoprolol tartrate (LOPRESSOR) tablet 12.5 mg (CANCELED) 12.5 mg, Oral, EVERY 6 HOURS SCHEDULED, First dose (after last modification) on Tue02/16/11 at 1200, Until Discontinued, Hold for SBP < 90 or HR < 60, Routine 1143 (Given - Provider: Angeles Morris RN)1800 (Not Given - Provider: Kori Rivera RN - Reason: Order parameters not met) 0007 (Given - Provider: Mary Noe RN)0600 (Given - Provider: Mary Noe RN) metoprolol tartrate (LOPRESSOR) tablet 25 mg (CANCELED) 25 mg, Oral, EVERY 6 HOURS SCHEDULED, First dose on Tue02/15/11 at 1315, Until Discontinued, Hold for SBP < 90 or HR < 60, Routine 1315 (Given - Provider: Jennyfer Robin RN)1800 (Given - Provider: Jennyfer Robin RN) 0030 (Given - Provider: Shelbie Bearden, KOREY)0620 (Given - Provider: Shelbie Bearden RN) metroNIDAZOLE (FLAGYL) 500 mg in sodium chloride 0.9% 100 mL (CANCELED) 500 mg, Intravenous, EVERY 8 HOURS SCHEDULED, First dose on 02/14/11 at 0700, Until Discontinued, Administer over 30 Minutes 0623 (Given - Provider: Luis Armando Siu RN) PARoxetine (PAXIL) tablet 60 mg (CANCELED) 60 mg, Oral, EVERY MORNING, First dose on 02/14/11 at 0700, Until Discontinued, Routine 0655 (Given - Provider: Luis Armando Siu, KOREY) 0645 (Given - Provider: Shelbie Bearden RN) 0627 (Given - Provider: Mary Noe, KORE[place]) potassium chloride 10 mEq with lidocaine (1%) 1 mL in sodium chloride 0.9% 100 mL IV (COMPLETED) 10 mEq, Intravenous, EVERY HOUR, 6 doses, First dose on Tue02/15/11 at 1400, Last dose on Tue02/15/11 at 1900, Administer over 60 Minutes 1400 (Given - Provider: Jennyfer Robin RN)1500 (Given - Provider: Jennyfer Robin RN)1659 (Given - Provider: Jennyfer Robin RN)1700 (Given - Provider: Jennyfer Robin RN)1945 (Given - Provider: Shelbie Bearden, RN)2140 (Given - Provider: Shelbie Bearden, RN) potassium chloride SA (K-DUR;KLOR-CON) tablet 40 mEq (COMPLETED) 40 mEq, Oral, EVERY 2 HOURS, 2 doses, First dose on Tue02/15/11 at 1400, Last dose on Tue02/15/11 at 1600, 20 mEq tablet may be dissolved in water for administration, Routine 1400 (Given - Provider: Jennyfer Robin RN)1600 (Given - Provider: Jennyfer Robin RN) vancomycin 1 g in sodium chloride 0.9% 250 mL (CANCELED) 1,000 mg (1 g), Intravenous, at 166.7 mL/hr, EVERY 12 HOURS, First dose on Tue02/14/11 at 0700, Until Discontinued, Routine 0900 (Given - Provider: Jennyfer Robin RN) PRN Medication Order 02/15/2011 02/16/2011 02/17/2011 acetaminophen (TYLENOL) tablet 650 mg (CANCELED) 650 mg, Oral, EVERY 6 HOURS PRN, Starting on Tue02/14/11 at 0414, Until Tue02/17/11 at 1437, Pain, Fever, Administer for temperature greater than or equal to 38.2 degrees celsius, Routine 2014 (Given - Provider: Elham Ling, KOREY) gadopentetate dimeglumine (MAGNEVIST) 10 mmol/20 mL (469.01 mg/mL) injection 13.48 mL (COMPLETED) 13.48 mL (0.2 mL/kg/dose ? 67.4 kg), Intravenous, ONCE PRN, 1 dose, Starting on Tue02/15/11 at 0917, Until Tue02/15/11 at 0924, Per Protocol, Routine 0924 (Given - Provider: Kayla St) LORazepam (ATIVAN) injection 0.5-1 mg (CANCELED) 0.5-1 mg, Intravenous, 2 TIMES DAILY PRN, Starting on 02/14/11 at 1013, Until Tue02/17/11 at 1437, Anxiety, Routine 2259 (Given - Provider: Mary Noe, [place]) ondansetron (ZOFRAN) injection 4 mg (CANCELED)(Linked Group 1) 4 mg, Intravenous, EVERY 8 HOURS PRN, Starting on 02/14/11 at 0414, Until Tue02/17/11 at 1437, Nausea, Vomiting, May repeat times one in 30 minutes if ineffective , Routine 0627 (Given - Provider: Luis Armando Siu RN) OXYcodone (ROXICODONE) immediate release tablet 10-15 mg (CANCELED) 10-15 mg, Oral, EVERY 4 HOURS PRN, Starting on 02/15/11 at 1616, Until Tue02/17/11 at 1437, Pain, Routine 1641 (Given - Provider: Jennyfer Robin, K[place])2041 (Given - Provider: Shelbie Bearden, [place]) 0353 (Given - Provider: Shelbie Bearden RN)0905 (Given - Provider: Angeles Morris, K[place]Y)1300 (Given - Provider: Kori Rivera, K[place]Y)1702 (Given - Provider: Livier Velarde RN)2113 (Given - Provider: Elham Ling, [place]) 0130 (Given - Provider: Mary Noe, K[place])0534 (Given - Provider: Mary Noe, K[place]Y)0942 (Given - Provider: Vivian Kendall, [place]) Linked Groups Order Group 1: ondansetron (ZOFRAN) tablet 4 mg (CANCELED) 4 mg, Oral, EVERY 8 HOURS PRN, Starting on 02/14/11 at 0414, Until Tue02/17/11 at 1437, Nausea, Vomiting, May repeat times one in 45 minutes if ineffective , Routine Or ondansetron (ZOFRAN) injection 4 mg (CANCELED)Jump to med 4 mg, Intravenous, EVERY 8 HOURS PRN, Starting on 02/14/11 at 0414, Until 02/17/11 at 1437, Nausea, Vomiting, May repeat times one in 30 minutes if ineffective , Routine documented in this encounter Care Teams [employer] Relationship Specialty Start Date End Date Trip Perry MD [address] [place] [address] PCP - General 08/18/10 10/02/11 documented as of this encounter
--- OUTSIDE RECORDS SUMMARY | 2024-04-13 11:22 | XMS_ITS | Encounter Summary ---
Author Organization [facility] Address [facility] [place] [address] Care Team Providers Care Construction Consultant Name Role Phone Modesto Hayes MD Primary Care Provider + Reason for Visit * Reason Comments Neck And Shoulder Pain Encounter Details Date Type Department Care Team (Late st Contact Info) Description 04/28/2011 12:20 PM EDT Office [place] [address] Alcides Rojas MD [facility] [place] [place] [address] Cervical spondylosis (Primary Dx) Discharge Disposition: Home Social History Tobacco Use Types Packs/Day Years Used Date Smoking Tobacco: Every Day Cigarettes 1 25 Smokeless Tobacco: Never Tobacco Cessation:Ready to [...] Sign Reading Time Taken Comments Blood Pressure - - Pulse - - Temperature - - Respiratory Rate - - Oxygen Saturation - - Inhaled Oxygen Concentration - - Weight 70.3 kg (155 lb) 04/28/2011 12:45 PM EDT Height 170.2 cm (5' 7) 04/28/2011 12:45 PM EDT Body Mass Index 24.28 04/28/2011 12:45 PM EDT documented in this encounter Patient Instructions * Patient Instructions* Pallavi John Angeline, CANVAS CUTTER MACHINE - 04/28/2011 12:47 PM EDT [facility] Deciding About Using Medicines To Quit Smoking What are the medicines you can use? Your doctor may prescribe varenicline (Chantix) or bupropion (Zyban) to help you cope with cravingsfor tobacco. These medicines are pills that don't contain nicotine. You also can use nicotine replacement products, which do contain nicotine. There are several types of nicotine replacement. ?? Gum and lozenges slowly release nicotine into your mouth. ?? Patches stick to your skin and slowly release nicotine into your bloodstream. ?? An inhaler has a agrawal that contains nicotine. It delivers a puff of nicotine vapor into your mouth and throat. What are gray points about this decision? ?? Using medicines can double your chances of quitting smoking. They can relieve nicotine craving and withdrawal symptoms. ?? Getting counseling, along with using medicine, can increase your chances of quitting even more. ?? If you smoke fewer than 10 cigarettes a day, you may not need medicines to help you quit smoking. ?? The side effects of nicotine replacement products depend on the type of product. For example, a patch can make your skin red and itchy. Medicines in pill form can cause nausea, dry mouth, and trouble sleeping. For most people, the side effects are not bad enough to make them stop using the medicines. ?? Nicotine medicines have less nicotine than cigarettes. And by itself, nicotine is not nearly as harmful as smoking. The tars, carbon monoxide, and other toxic chemicals in tobacco cause the harmful effects. Why might you choose to use medicines to quit smoking? ?? You have tried on your own to stop smoking, but you were not able to stop. ?? You smoke more than 10 cigarettes a day. ?? You want to increase your chances of quitting smoking. ?? You want to reduce your craving for tobacco and your nicotine withdrawal symptoms. ?? You feel the benefits of medicine outweigh the side effects. Why might you choose not to use medicine? ?? You want to try quitting on your own by stopping all at once (cold turkey). ?? You want to cut back slowly on the number of cigarettes you smoke. ?? You smoke fewer than 10 cigarettes a day. ?? You do not like using medicine. ?? You feel the side effects of medicines outweigh the benefits. ?? You are worried about the cost of medicines. Your decision Thinking about the facts and your feelings can help you make a decision that is right for you. Be sure you understand the benefits and risks of your options, and think about what else you need to do before you make the decision. Where can you learn more? Visit our health information library at http://www.Everyday.[facility] hospital[facility] Biotechnology[facility].Userlike Live Chat/healthinfo. You can alsoview health information on [employer], your personal patient account. Log in or sign up today. Enter K933 in the search box to learn more about Deciding About Using Medicines To Quit Smoking. ?? [id number] [employer]. Care instructions adapted under license by [facility]. This care instruction is for use with your licensed healthcare professional. If you have questions about a medical condition or this instruction, always ask your healthcare professional. [employer] disclaims any warranty or liability for your use of this information. Content Version: 8.9.34858; Last Revised: October 01, 2009[facility] Stopping Smoking: After Your Visit Your Care Instructions Cigarette smokers crave the nicotine in cigarettes. Giving it up is much harder than simply changing a habit. Your body has to stop craving the nicotine. It is hard to quit, but you can do it. There are many tools that people use to quit smoking. You may find that combining tools works best for you. There are several steps to quitting. First you get ready to quit. Then you get support to help you.After that, you learn new skills and behaviors to become a nonsmoker. For many people, a necessary step is getting and using medicine. Your doctor will help you set up the plan that best meets your needs. You may want to attend a smoking cessation program to help you quit smoking. When you choose a program, look for one that has proven success. Ask your doctor for ideas. You will greatly increase your chances of success if you take medicine as well as get counseling or join a cessation program. Some of the changes you feel when you first quit tobacco are uncomfortable. Your body will miss thenicotine at first, and you may feel short-tempered and grumpy. You may have trouble sleeping or concentrating. Medicine can help you deal with these symptoms. You may struggle with changing your smoking habits and rituals. The last step is the tricky one: Be prepared for the smoking urge to continue for a time. This is a lot to deal with, but keep at it. You will feel better. Follow-up care is a gray part of your treatment and safety. Be sure to make and go to all appointments, and call your doctor if you are having problems. It???s also a good idea to know your test results and keep a list of the medicines you take. How can you care for yourself at home? ?? Ask your family, friends, and coworkers for support. You have a better chance of quitting if youhave help and support. ?? Join a support group, such as Nicotine Anonymous, for people who are trying to quit smoking. ?? Consider signing up for a smoking cessation program, such as the [employer]'s [place] from Smoking program. ?? Set a quit date and stick to it. Pick your date carefully so that it is not right in the middle of a big deadline or stressful time. Once you quit, do not even take a puff. Get rid of all ashtraysand lighters after your last cigarette. Clean your house and your clothes so that they do not smellof smoke. ?? Learn how to be a nonsmoker. Think about ways you can avoid those things that make you reach fora cigarette. ?? Avoid situations that put you at greatest risk for smoking. For some people, it is hard to have a drink with friends without smoking. For others, they might skip a coffee break with coworkers who smoke. ?? Change your daily routine. Take a different route to work or eat a meal in a different place. ?? Cut down on stress. Calm yourself or release tension by doing an activity you enjoy, such as reading a book, taking a hot bath, or gardening. ?? Talk to your doctor or pharmacist about nicotine replacement therapy, which replaces the nicotine in your body. You still get nicotine but you do not use tobacco. Nicotine replacement products help you slowly reduce the amount of nicotine you need. These products come in several forms, many of them available shev-vrg-cimkypt: ?? Nicotine patches ?? Nicotine gum and lozenges ?? Nicotine inhaler ?? Ask your doctor about bupropion (Wellbutrin) or varenicline (Chantix), which are prescription medicines. They do not contain nicotine. They help you by reducing withdrawal symptoms, such as stressand anxiety. ?? Some people find hypnosis, acupuncture, and massage helpful for ending the smoking habit. ?? Eat a healthy diet and get regular exercise. Having healthy habits will help your body move pastits craving for nicotine. ?? Be prepared to keep trying. Most people are not successful the first few times they try to quit.Do not get mad at yourself if you smoke again. Make a list of things you learned and think about when you want to try again, such as next week, next month, or next year. ?? If other medicines and techniques do not seem to help you, your doctor may prescribe a differentmedicine, such as nortriptyline (Aventyl, Pamelor) or clonidine (Catapres), that usually is used totreat other medical conditions. These medicines also can be effective at helping people quit smoking. Where can you learn more? Visit our health information library at http://www.[facility].Userlike Live Chat/healthinfo. You can alsoview health information on [employer], your personal patient account. Log in or sign up today. Enter Y522 in the search box to learn more about Stopping Smoking: After Your Visit. ?? [id number] [employer]. Care instructions adapted under license by [facility]. This care instruction is for use with your licensed healthcare professional. If you have questions about a medical condition or this instruction, always ask your healthcare professional. [employer] disclaims any warranty or liability for your use of this information. Content Version: 8.9.45192; Last Revised: May 05, 2009 documented in this encounter Progress Notes * Shital Eckert, PT - 04/28/2011 2:08 PM EDT Sahra Williamson [facility] evaluation in conjunction with Alcides Rojas M.D. from the neurosurgical service. She came here with the expectations to see if there is anything that can be done from a surgical point of view to relieve her symptoms. History of present illness: Ms. Williamson reports she underwent a anterior cervical decompression and instrumented fusion at C5-C6 in 2003. Following of this procedure she continued to have neck pain andwhich has been treated with medications, multiple injections, and exercises. She did well until having a seizure in February 2011. Upon coming to following this seizure she began to have neck and left shoulder and arm pain. The left sided symptoms have improved and the pain is now radiating down the right arm and seems to be worsening over time. Ms. Williamson currently complains of neck pain radiating tothe right shoulder, right scapular, and to the mid arm. The neck pain is worse than the upper extrem ity pain. The pain is rated 6/10 at its least and 8/10 at its worst. Symptoms worsen with sitting, driving, turning, and looking down. Symptoms ease when lying down or taking her medications. She reports intermittent numbness and tingling of the right shoulder and denies weakness fine motor function is normal. Sleep is disturbed due to the pain. When asked about a gait or balance disturbance Ms. Williamson notes she feels clumsy when walking. She denies fevers, chills, unexplained weight loss, night sweats, and gastrointestinal symptoms. Bowel and bladder function is normal. Past medical history: posterior reversible encephalopathy syndrome, depression, and hypertension Past surgical history: lumbar laminectomy in 1997, cervical fusion 2001, lumbar laminectomy 2005, left ankle surgery 2001, right shoulder surgery 1986, appendectomy 1978, and hysterectomy 1992 Social history: Ms. Williamson is a disabled and lives with her in [place], [place]. Shesmokes 1 pack of cigarettes per day, drinks no alcohol, and is not involved in a structured exercise program. She has not been working since 2003 and has been receiving disability benefits. Physical exam: Ms. Williamson is a 46 y.o. female with a stated height 5 feet 7 inches and weight of 155lbs. who moves about in the exam room without difficulty and appears comfortable while seated. Gait is unremarkable. She is able to heel/toe walk and squat fully. She has no difficulty with single-legstance. Examination of the spine in the standing position reveals a mildly protruded head posture and rounded shoulders. Active range of motion of the lumbar spine is limited to 40?? flexion and 10??extension. Active range of motion of the cervical spine is limited to 30?? flexion, 10?? extension,50?? right rotation, 55?? left rotation, 20?? right sidebending and 25?? left sidebending. Strengthis 5/5 bilateral upper and lower extremities. Light touch is intact bilateral upper extremities. DTRs are 2+ and symmetric in upper and lower extremities. There is no clonus. Toes are downgoing. Spurling maneuver to the right and left reproduces the neck pain but does not produce any radicular symptoms. There is no muscle atrophy. Med sign is absent. Active range of motion of bilateral shoulders is full and painless. Assessment/ Treatment plan: Ms. Williamson was seen in with Alcides Rojas M.D. Please refer to Dr. Rojas note for details. * Alcides Rojas MD - 04/28/2011 1:50 PM EDT I have just seen Sahra Williamson [facility] at the request of Modesto Hayes M.D. for evaluation of a herniated disk. Ms. Williamson is a 46-year-old female who has been previously disabled for several years. She has undergone a cervical fusion from C5 to C7 as well as what appears to be a lumbar fusion. She was recently admitted to the hospital for an episode of PRES. However, sometime thereafter she began developing increased neck pain and initially left shoulder pain, which has now switched more so to the right side. She describes it as primarily into the trapezius and shoulder region without extension into her arm. Again, she does have a preexisting history of neck pain. She notes no difficulty with fine motor coordination. Her exam was performed by Shital Eckert PT, which failed to show any evidence of hyperreflexia. Her MRI shows a preexisting fusion at the C5 through C7 levels. Just superior to this at C4-C5, she has a disk protrusion that is actually more pronounced on the left side near the foramen. The central canal is narrowed, but the cord does not seem to be compressed. I told Ms. Williamson that while the C4-C5 area may be contributing or causative for her symptoms, I would certain recommend conservative treatment first. She has no indications for myelopathic process. To that end she will follow up with her local physical therapist. She is also seeing a pain clinic closer to home, and it may benefit her to revisit with them. If these fail, we could consider surgery. However, there will be certain implications being that this is adjacent to a previously fused segment. I did discuss that a cervical artificial disk could be used in this region to hopefully avoid additional neck movement restriction. She expressed understanding and was actually hoping to avoid surgery, and I think at least for the time being we can certainly do so. She had no further questions at the conclusion of our meeting. The entirety of this 15-minute visit was spent in [id number] consultation reviewing her MRI and discussing treatment options. documented in this encounter Plan of Treatment Not on file documented as of this encounter Visit Diagnoses Diagnosis Cervical spondylosis- Primary Cervical spondylosis without myelopathy documented in this encounter Care Teams Construction Consultant Relationship Specialty Start Date End Date Modesto Hayes MD [address] [place] [address] PCP - General 08/18/10 10/02/11 documented as of this encounter
--- OUTSIDE RECORDS SUMMARY | 2024-04-13 11:22 | XMS_ITS | Encounter Summary ---
Author Organization [facility] Address [facility] [place] [address] Care Team Providers Care Park Manager Name Role Phone Unknown Primary Care Provider Unavailabl e Encounter Details Date Type Department Care Team (Late st Contact Info) Description 11/10/2006 Orders [place] [address] Alcides Rojas MD [facility] [place] [address] Social History Tobacco Use Types Packs/Day Years Used Date Smoking Tobacco: Never Assessed Sex and Gender Information Value Date Recorded Sex Assigned at Not on file Gender Identity Not on file Sexual Orientation Not on file documented as of this encounter Plan of Treatment Not on file documented as of this encounter Procedures Procedure Name Priority Date/Time Associated Diagnosis Comments SURGICAL PATHOLOGY REPORT Routine 11/10/2006 3:11 PM EST documented in this encounter Results * Surgical Pathology Report (11/10/2006 3:11 PM EST) Surgical Pathology Report - [id number] ? Location: 5WST; 0500; B The signing pathologist has (i) examined the relevant preparation(s) for the specimen(s) and (ii) rendered or confirmed the diagnosis(es). . ?Pathology Surgical Pathology Final Report Clinical Information Specimen Submitted: A - Disc: L4 - 5. Clinical History: Clinical Diagnosis: Left L4 - 5 HNP. Gross Description Labeled/Fixativ e: ? Disc, L4-5, fresh. Quantity/Size: ?Multiple, 3.5 x 2.0 x 0.7 cm. Tissue Description: ?? Dense, workman-white, friable fragments. Sections/Proces sing: ??No sections are submitted. ??crh/CSS Diagnosis Intervertebral disc, L4-5, clinically left L4-5 HNP. ?? Gross surgical pathology examination. CR-0 11/10/06 [facility] 11/11/06 Verified by: ? Porfirio Duncan MD ?Pathologist ?(Electronic Signature) The attending pathologist whose signature appears on this report has reviewed all diagnostic slides and has edited the gross and/or microscopic portion of the report in rendering the final pathologic diagnosis. JANAY PANDYA 11/10/2006 3:11 PM EST Alcides Rojas MD PATHOLOGY/CYTOLOGY O RDERABLES JANAY PANDYA documented in this encounter Visit Diagnoses Not on filedocumented in this encounter Care Teams Park Manager Relationship Specialty Start Date End Date Unknown None PCP - General 05/27/23 documented as of this encounter
--- OUTSIDE RECORDS SUMMARY | 2024-04-13 11:22 | XMS_ITS | Encounter Summary ---
Author Organization [facility] Address [facility] [place] [address] Care Team Providers Care Network Security Officer Name Role Phone Park Rawls APRN Primary Care Provider [phone] Reason for Visit * Reason Onset Date Comments Other 12/17/2011 Encounter Details Date Type Department Care Team (Late st Contact Info) Description 12/17/2011 [place] [address] Montse Arce MD [facility] [place] [address] Other Social History Tobacco Use Types Packs/Day [...] encounter Miscellaneous Notes * Telephone Encounter - Montse Arce - 12/23/2011 12:30 PM EDT Returned patient call. Informed patient that while I am not comfortable prescribing medical marijuana but would be happy to put in a referral to the pain clinic at [facility] at this time. If she prefers [facility] local pain clinic she can inquire through her PCP. Instructed patient to call back with any questions. * Telephone Encounter - Emily Patton - 12/17/2011 10:47 AM EDT Patient would like a referral for medical marijuana, She wants to set up an appointment with a painclinic and try to come off of her pain meds and per the patient this was an option Patient is aware that Dr. Arce is not available until Tuesday and she agreed to a call back then documented in this encounter Plan of Treatment Not on file documented as of this encounter Visit Diagnoses Not on filedocumented in this encounter Care Teams Network Security Officer Relationship Specialty Start Date End Date Park Rawls APRN [address] [place] [address] PCP - General 10/03/11 02/05/16 documented as of this encounter
--- OUTSIDE RECORDS SUMMARY | 2024-04-13 11:22 | XMS_ITS | Encounter Summary ---
Author Organization [facility] Address [facility] [place] [address] Care Team Providers Care Electronic Controls Repairer Supervisor Name Role Phone Park Rawls APRN Primary Care Provider Encounter Details Date Type Department Care Team (Late st Contact Info) Description 11/10/2011 Orders [place] [address] Montse Arce MD [facility] [place] [address] ICH (intracerebral hemorrhage) Social History Tobacco Use Types Packs/Day Years [...] this encounter Visit Diagnoses Diagnosis ICH (intracerebral hemorrhage) Intracerebral hemorrhage documented in this encounter Care Teams Electronic Controls Repairer Supervisor Relationship Specialty Start Date End Date Park Rawls APRN [address] [place] [address] PCP - General 10/03/11 02/05/16 documented as of this encounter
--- OUTSIDE RECORDS SUMMARY | 2024-04-13 11:22 | XMS_ITS | Encounter Summary ---
Author Organization [facility] Address [facility] [place] [address] Care Team Providers Care Flavorings Compounder Name Role Phone Park Rawls APRN Primary Care Provider [phone] Reason for Visit * Reason Onset Date Comments Neurologic Problem 11/16/2011 Headaches and Dizziness Encounter Details Date Type Department Care Team (Late st Contact Info) Description 11/16/2011 [place] [address] Montse Arce MD [facility] [place] [address] Neurologic Problem (Headaches and Dizziness) Social History Tobacco Use Types Packs/Day Years [...] * Telephone Encounter - Montse Arce - 11/16/2011 10:19 AM EST Patient reports that last Tuesday she started to feel lightheaded and dose reduced Gabapentin on herown back to 300mg TID with some improvement. On Th/Tue she developed what she thought was her typical migraine, left sided with associated N/V (3 episodes) and went to her local ED where a noncontrast head CT was performed with no new acute process and stable presence of her hemorrhage per her report. Since then she has had continued headaches which do not improve with oral narcotics. We discussed the nature of her headaches in detail. I am glad she has repeated the head CT since the onset of this headache without evidence of a new process although I am limited by my inability to not view this scan personally. We discussed, again, the likelihood that narcotics are contributing to a rebound worsening of her headaches. We are limited in terms of prn medications given her recent head bleed. I offered to call in a phenergan suppository for her to help relieve her nausea and provide rest/relief. She asked if I could call her local ED to suggest IV narcotics. I again explained that this would not likely help her headaches and I would not recommend IV narcotics use but it wouldbe reasonable for her to go to her local ED for a repeat CT, consideration of CTA and possible IVF or IV magnesium. She stated she did not believe she was dehydrated and was actually able to keep fluid/oral medications down without difficulty at the time being. I also offered to increased her preventative medication, particularly the verapamil, but increase in her lamictal dose would also not be unreasonable. She endorses current psychosocial stressors which I believe may also be contributing to her headaches. Ms. Williamson was not pleased with my recommendations and again asked me to call her local ED to endorse IV narcotics which I stated was not likely to help her headaches in the intermediat e or correction. I acknowledged her frustration and apologized for the inconvenience but stated evenif I were to see her in the [facility] ED I would not likely provide IV narcotics for a migraine. * Telephone Encounter - Evelin Lanier - 11/16/2011 9:18 AM EST Patient is calling again because she cannot tolerate the pain. Please call her back to discuss. * Telephone Encounter - Evelin Lanier - 11/16/2011 8:21 AM EST Patient is calling in regards to having lots of headaches and dizziness. She has been getting sick to her stomach quit a bit. Please call her back to discuss what her options are for medication. documented in this encounter Plan of Treatment Not on file documented as of this encounter Visit Diagnoses Not on filedocumented in this encounter Care Teams Flavorings Compounder Relationship Specialty Start Date End Date Park Rawls APRN [address] [place] [address] PCP - General 10/03/11 02/05/16 documented as of this encounter
--- OUTSIDE RECORDS SUMMARY | 2024-04-13 11:22 | XMS_ITS | Encounter Summary ---
Author Organization [facility] Address [facility] [place] [address] Care Team Providers Care Technician Assistant Name Role Phone Park Rawls APRN Primary Care Provider Reason for Visit * Reason Onset Date Comments Medication Refill 12/02/2011 VERAPAMIL Encounter Details Date Type Department Care Team (Late st Contact Info) Description 12/02/2011 [place] [address] Montse Arce MD [facility] [place] [address] Social History Tobacco Use Types Packs/Day Years [...] * Telephone Encounter - Bonita Perera - 12/02/2011 8:14 AM EST Name of Med: VERAPAMIL Strength of Pills: 120 MG Dosing Directions: 1 PILL IN AM, 1 PILL IN PM Pharmacy: [facility] documented in this encounter Plan of Treatment Not on file documented as of this encounter Visit Diagnoses Not on filedocumented in this encounter Care Teams Technician Assistant Relationship Specialty Start Date End Date Park Rawls APRN [address] [place] [address] PCP - General 10/03/11 02/05/16 documented as of this encounter
--- OUTSIDE RECORDS SUMMARY | 2024-04-13 11:22 | XMS_ITS | Encounter Summary ---
Author Organization [facility] Address [facility] [place] [address] Care Team Providers Care Door Tender Name Role Phone Park Rawls APRN Primary Care Provider Reason for Visit * Reason Comments Headache Encounter Details Date Type Department Care Team (Late st Contact Info) Description 10/02/2011 9:16 PM EST - 10/05/2011 1:12 PM [facility] Hospital Encounter [address] [place] [address] Ivan Ohara Jr., MD [facility] [place] [address] Eloy Uribe MD [facility] [place] [address] Quirino Morel Jr., [facility] [place] [address] ICH (intracerebral hemorrhage) Discharge Disposition: Home with VNA Social History Tobacco Use Types Packs/Day Years [...] Sign Reading Time Taken Comments Blood Pressure 124/82 10/05/2011 9:45 AM EST Pulse 60 10/05/2011 9:45 AM EST Temperature 36.4 ??C (97.5 ??F) 10/05/2011 9:45 AM ES T Respiratory Rate 16 10/05/2011 9:45 AM EST Oxygen Saturation 95% 10/05/2011 9:45 AM EST Inhaled Oxygen Concentration - - Weight 74.2 kg (163 lb 9.3 oz) 10/04/2011 12:04 AM EST Height 167.6 cm (5' 6) 10/03/2011 2:50 AM EST Body Mass Index 26.4 10/03/2011 2:50 AM EST documented in this encounter Medications at Time of Discharge Medication Sig Dispensed Refills Start Date End Date gabapentin (NEURONTIN) 300 mg capsule Take 1 capsule by mouth 3 times daily. 90 capsule 1 10/05/2011 11/03/2011 verapamil (CALAN SR) 120 mg CR tablet Take 1 tablet by mouth nightly. 30 tablet 1 10/05/2011 12/02/2011 metoprolol succinate (TOPROL-XL) 50 mg 24 hr tablet Take 1 tablet by mouth daily. 30 tablet 12 02/17/2011 02/17/2012 OXYcodone (ROXICODONE) 15 mg immediate release tablet Take 15 mg by mouth every 4 hours as needed. (7x per day) 02/04/2016 docusate sodium (COLACE) 100 mg capsule Take 100 mg by mouth daily as needed. 02/15/2011 02/04/2016 lamoTRIgine (LAMICTAL) 100 mg tablet Take 100 mg by mouth daily. 06/11/2016 documented as of this encounter Progress Notes * Che Covarrubias - 10/05/2011 2:20 PM EST Occupational Therapy Treatment Note Visit : 10/05 Patient Dx: L parietal IVH Precautions: falls Interval History: ISCU-3W. S: I have to concentrate on what I have to do much more now. O: Patient seen for 44 mins for ADL's and mobility to address goals. Pt demonstrated the following: ?? Slow and deliberate movement requiring extra time to complete functional tasks. ?? Decreased right/left discrimination ?? Supervision for UB/LB dressing, cues for safety and technique ?? Stand hike for pants with supervision and cues. Pain: none indicated Education: Pt/family education ongoing regarding energy conservation and techniques. Issued handoutand reviewed principles. Recommended seat for showering and waiting for VNA to assist with first shower transfer. Staff Communication: Patient status, treatment, and mobility recommendations discussed with nursing, CRC and PT. A: Pt presents with improved L/R discrimination based on documentation from initial evaluation. Sheis moving with FWW and supervision and will require someone with her at home 18/04 at initial d/c 2'to unsteadiness and perceptual deficits. Pt would benefit from Home OT to assess safety and IADL's in home environment. P: plan for d/c home today Total time spent with patient: 44 minutes Total timed interventions: 44 minutes Pager: [phone] LUDWIN CARBAJAL 10/05/2011 Occupational Therapy Rehabilitation Department * Isabel Post RN - 10/05/2011 1:08 PM EST Patient alert and oriented, in chair in no apparent distress. Lungs clear bilaterally, heart rate regular, abdomen soft and nontender, positive bowel sounds and flatus, no neuro deficits, ambulating with standby assist and walker, voiding independently. Patient is discharged home * Naty Samuels, PT - 10/05/2011 12:57 PM EST Physical Therapy Evaluation Patient profile: Patient is a 46 y.o. female of Quirnio Carson Jr., ,with a h/o PRES admitted on 10/02/2011 with spontaneous L parietal IPH PMH: Past Medical History Diagnosis Date ??? Seizures ??? Depression ??? HTN (hypertension) History reviewed. No pertinent past surgical history. Interval History: There are no hospital problems to display for this patient. Social History: , from [place], [place]. 2 step, no railing into house(wall on one side) then all on one level Precautions/Special Considerations: At risk to fall Subjective: I've been having trouble with depth perception. I've had a couple of falls at home Objective: Total time spent with patient: 27 minutes eval Total timed interventions: 0 minutes Pain: mild, 3/10 headache, much improved from yesterday Vital Signs: Sp02: N/E HR: N/E Mental Status/Behavior: Pt status: Alert, oriented, thought content appropriate Strength/ROM: WFL Bed Mobility: 1. lying <-> Sit: independent. 2. Rolling: independent. Transfers: 3. Sit <-> Stand: independent using no assistive device,wide base of support 4. Bed <-> Chair: close contact guard of 1 using no assistive device. Gait: 5. Distance: amb x approx 12 ft with close CG, 150 ft with FWW 6. Device: rolling walker 7. Assist level: supervision w/ FWW 8. Gait pattern: ataxic,wide base of support 9. Stairs: up and down 3 steps with wall support on left side and min assist on right. Pt s husbandto assist at home and instructed how to assist . 10. Pt. to utilize rolling walker and supervision for ambulation with nursing. Balance: 11. Sitting: good ?? Standing: decreased Some left /right discrimination issues Education: patient have been educated on Bed mobility, Transfers, Assistive device/technique, Stairs, Safety , Precautions/protocol, Gait , Role of therapy, Balance and Discharge planning and verbalizes understanding. Patient status, treatment, and mobility recommendations discussed with nursing. Assessment: 46 yo female with h/o PRES s/p L pariental IPH Plan: Pt is ready,willing and safe for d/c to home with 24 hour supervision of her Equipment needs: Rolling walker Discharge Recommendations: Patient would benefit from continued therapeutic interventions 2-3 times a week as provided in a home environment to progress toward functional goals. Occupational Therapy consult Pager: [phone] NATY SAMUELS, ROBERTO 10/05/2011 Physical Therapy Rehabilitation Department * Radha Robin RN - 10/05/2011 11:20 AM EST Office of Care Management Clinical Roofing Laborer (CRC) Radha Robin RN, BSN -CRC Neurology/ENT Voice Mail [phone] Pager [phone] DISCHARGE PLANNING: ROOM: [id number] ATTENDING: Dr. Morel Reason for Hospitalization: 46 y/o female with L parietal IPH Have been informed by the team that patient will be kindra to go home today. Her will be there with her around the clock. She is feeling that she would like to have home PT for a while until she feels up to going for outpatient therapy. She also would need a rolling walker. There is no preference for a DME airplane gas tank liner assembler nor VNA. Will set these services up now. Will ask to have a rolling walker delivered to her room this afternoon. P: plan d/c home today. * Quirino Morel Jr., DO - 10/05/2011 7:42 AM EST NEUROLOGY PROGRESS NOTE Patient Name: Shara Cobb Admit Date: 10/02/2011 Attending: Dr. Morel Clinical Synopsis 46 year old lady admitted with left parietal hemorrhage Subjective Headaches improved Objective OT evaluation: need skilled OT, patient says she does have a therapist Had conventional angiogram: no aneurysm/ vascular malformations NS on consult Vitals: Temp: [36.5 ??C (97.7 ??F)-37.2 ??C (99 ??F)] Heart Rate: [52-75] Resp: [11-18] BP: (100-148)/(43-99) SpO2: [94 %-98 %] Physical Examination General Examination No distress, cooperative.No pallor, cyanosis, clubbing or lymphadenopathy. No JVD. Respiratory System No supra/infraclavicular hollowing. Normal respirations. No tenderness to palpation. Vesicular breath sounds bilaterally. No adventitious sounds Cardiovascular System No visible pulsations,[place] normal,Heart sounds: [id number], S2 normal. No S3/S4. No murmurs. Gastrointestinal System Abdomen: soft, non tender. No organomegaly. Bowel sounds normal Extremities/Dermatology No skin lesions noted. No edema, Peripheral pulses normal Neurological Examination MS/Higher Functions Alert and oriented. Follows commands Speech: fluent, no aphasia/dysarthria or dysphonia Cranial Nerves II-XII: Pupils bilaterally equal and symmetric conjugate gaze, reacting to light. No ptosis/nystagmus. EOMI. No facial droop. Normal sensations and equal sensations bilaterally on face. No weakness of jaw/uvula/ palate Motor Normal tone and bulk of right and left sided muscles Upper extremity: Right: UE 5/5 LE 5/5 Left: UE 5/5 LE 5/5 Reflexes +2 DTR bilaterally Sensory Normal sensations bilaterally Coordination Normal No abnormal / involuntary movements Skull and Spine/ Meningeal Signs/Carotids Normal, no meningeal signs, no carotid bruit Labs/ Imaging: Recent Results (from the past 24 hour(s)) SEDIMENTATION RATE Component Value Range ??? Sed Rate 14 0 - 20 (mm/hr) HIGH SENSITIVITY CRP Component Value Range ??? CRP High Sens 2.7 (mg/L) RHEUMATOID FACTOR, QUANT Component Value Range ? ? RF <10 <=14 (IU/mL) BMP W/FASTING GLUCOSE Component Value Range ??? Glucose Fasting 108 (*) 65 - 99 (mg/dL) ??? BUN 15 8 - 18 (mg/dL) ??? Creatinine 0.84 0.70 - 1.20 (mg/dL) ??? Sodium 141 135 - 145 (mmol/L) ??? Potassium 4.2 3.5 - 5.0 (mmol/L) ??? Chloride 108 (*) 98 - 107 (mmol/L) ??? CO2 24 22 - 31 (mmol/L) ??? Anion Gap 9 5 - 15 (mmol/L) ??? Calcium 9.0 8.5 - 10.5 (mg/dL) ? ? Estimated GFR >60 >=60 Assessment and Plan 46 year old female with history of HTN, PRES, depression, migraines admitted with left parietal hemorrhage. Remains normotensive. Headaches improving. Neurologically remains non focal and stable. Conventional angiogram showing no aneurysm/ vascular malformation Impression: Parietal ICH Etiology: likely Hypertensive bleed Workup: vasculitis panel few tests pending Management Left Parietal ICH Neurochecks, BP control, PT/OT. HTN: controlled metoprolol Migraines on PRN oxycodone gabapentin, verapamil Depresson on seroquel, paroxetine held Seizure: Lamictal. Level pending Plan: Will discuss with PT/OT regarding rehab needs. Headache control. Outpatient f/up arrangement.Out patient pain consult for opioid tapering. Yusef Ibarra MD Resident Physician Neurology Pager [phone] Neurology (Staff) Addendum I saw and evaluated the patient with Dr. Ibarra on 10/05/2011. I have reviewed the resident's history, physical examination findings, assessment and plan during the visit and I agree with the details as written, unless otherwise specified as below. No new neurologic symptoms; headache improved, at a 12/03 today. Exam reassuring, notable for R UE sensory ataxia. Labs and imaging nondiagnostic. A/P: Left parietal ICH, w/u unrevealing. Pt revealed taking ~4 doses of Imitrex daily for several days prior to event. May have contributed. Will need f/u formal angio results and repeat imaging oncehemorrhage resolves. Would d/c triptan, avoid increasing opioids. Continue gabapentin and verapamilas able to tolerate. Pt eager for d/c home today. * Candi Machado - 10/05/2011 6:16 AM EST Neurosurgery Progress Note 46 yo female patient with history of PRES with spontaneous L parietal IPH HD 3 Events: Angio yesterday Started on verampamil yesterday for CHOWDARY CHOWDARY last night improved this morning States she has had some blurry vision since admission-stable VS: Temp: [36.5 ??C (97.7 ??F)-37.2 ??C (99 ??F)] Heart Rate: [52-75] Resp: [11-18] BP: (100-148)/(43-99) SpO2: [94 %-98 %] I/O last 3 completed shifts: In: 730 [P.O.:730] Out: 2650 [Urine:2650] I/O this shift: In: 660 [P.O.:660] Out: 700 [Urine:700] Exam: Alert, oriented x 3 Speech fluent and appropriate PERRL EOMI Facial motor function symmetric. No pronator drift. Motor full x 4 Sensation intact to light touch x 4 Labs: Lab Results Component Value Date/Time WBC 9.8 10/02/11 11:25 PM HGB 12.4 10/02/11 11:25 PM PLATELET 285 10/02/11 11:25 PM Lab Results Component Value Date/Time NA 141 10/05/11 04:49 AM K 4.2 10/05/11 04:49 AM CL 108* 10/05/11 04:49 AM CO2 24 10/05/11 04:49 AM BUN 15 10/05/11 04:49 AM CREATININE 0.84 10/05/11 04:49 AM Meds Scheduled Meds: ??? QUEtiapine 75 mg Oral Nightly ??? gabapentin 300 mg Oral TID ??? verapamil 120 mg Oral Nightly ??? DISCONTD: diphenhydrAMINE 50 mg Intravenous Once ??? DISCONTD: ondansetron 4 mg Intravenous Once ??? sodium chloride 0.9 % 5 mL Intravenous Q12H ??? famotidine 20 mg Oral BID ??? famotidine 20 mg Intravenous BID ??? docusate sodium 100 mg Oral BID ??? metoprolol succinate 50 mg Oral Daily ??? lamoTRIgine 100 mg Oral BID ??? DISCONTD: chlorhexidine 15 mL Oral Q12H VIANEY ??? DISCONTD: QUEtiapine 50 mg Oral TID Continuous Infusions: ??? sodium chloride 0.9% 50 mL/hr (10/04/11 1100) PRN Meds:.DISCONTD: fentaNYL (PF), DISCONTD: midazolam, bisacodyl, enalaprilat, acetaminophen, OXYcodone, labetalol Assessment: 46 y/o female with L parietal IPH h/o PRES, Neurologically stable Plan: - neuro checks q 4 - no anticoagulation - keep SBP < 160 - maintain normonatremia - MRI negative - would recommend angio - further care per neurology * Tessa Mendoza, BITUMINOUS PAVING MACHINE OPERATOR - 10/05/2011 12:00 AM EST Speech-Language Pathology 10/05/11 Chart reviewed. BITUMINOUS PAVING MACHINE OPERATOR was unable to complete initial evaluation yesterday as Pt was off floor for procedure. Attempted to see Pt today, however was preparing to be d/c to home. D/w RN and Pt, no reported concerns regarding swallow or dysphagia. Pt reports cognitive deficits (i.e. Memory). D/w Pt rec for BITUMINOUS PAVING MACHINE OPERATOR for cognition at d/c. Please contact me if I can be of further assistance Tessa Mendoza MS, CF-BITUMINOUS PAVING MACHINE OPERATOR Speech Language Pathologist Rehabilitation Medicine Pager #[phone] * Francisco J Hernandez - 10/04/2011 7:02 PM EST Patient arrived to floor from ISCU in nonapparent distress. Denies SOB, chest pain, nausea, vomiting or dizziness. No pain present. VSS. Oriented to room/call dubose. Patient on flat bed rest till 1900for angiogram done this afternoon. Patient aware. Angio site has a small amount of dried drainage but otherwise remains intact. at bedside. No concerns at this time. FRANCISCO J HERNANDEZ RN * Lety Appiah RN - 10/04/2011 6:16 PM EST Report given to KOREY Pollock. Patient stable for transfer, belongings packed, patient and family aware of transfer. * Lety Appiah RN - 10/04/2011 5:02 PM EST 1630: Patient returned from Angio with dressing to right groin, intact. Pulses present, flat bedrest for 4 hours. * Tessa Mendoza SLP - 10/04/2011 3:26 PM EST Speech-Language Pathology 10/04/2011 Attempted to see Pt for initial evaluation. Pt off floor for angio. Will follow up tomorrow am Please contact me if I can be of further assistance Tessa Mendoza, MS, CF-BITUMINOUS PAVING MACHINE OPERATOR Speech Language Pathologist Rehabilitation Medicine Pager #[phone] * Uyen Bliss PT - 10/04/2011 2:03 PM EST 2 attempts made to work with pt, unavailable due to working with OT then was having an angiogram. Eval to follow * Kati Hauser DT - 10/04/2011 12:46 PM EST Nutrition Services - Initial Note Sahra Cobb : 1965 AGE: 46 y.o. MedDx/PMHx: admitted with left parietal hemorrhage Reason for Nutrition Intervention: Patient Eating ICSU Diet Order: [facility] Appetite: good Food allergies: none Chewing/Swallowing difficulty: none Height: (cm) 167.6 Weight: (kg) 74.4 BMI: 26.5 Assessment: Patient denies need for any changes or nutrition education. Nutrition Plan: [facility] diet. Support and encouragement provided. Nutrition services to follow weekly thru hospital course unless consulted in the interim. KYLIE COLLINS * Perla Patton RN - 10/04/2011 11:14 AM EST [facility] NURSING DATABASE-INPT [id number] Name: SAHRA COBB Date of : 1965 Address: [address] [place] [id number] Phone: There are no phone numbers on file. Referring Provider: Manan Yancey Reason for Visit: Cerebral angiogram (left parietal hemorrhage, ?RCVS or vasculitis) Allergies Allergen Reactions ??? Amoxicillin Unknown pt unsure ??? Sulfa (Sulfonamide Antibiotics) Other (See Comments) Edema and itching ??? Ampicillin Itching ??? Codeine Phos Itching Pertinent PMH: Patient Active Problem List Diagnoses Code ??? PRES (posterior reversible encephalopathy syndrome) 348.39AD ??? Cervical spondylosis 721.0D HTN depression, migraines Pertinent PSH: History reviewed. No pertinent past surgical history. Date/Procedure Comments: 10/04/11 Cerebral A-grams Fentanyl 275mcg/ Versed 3.5mg Laboratory Results: Lab Results Component Value Date INR 1.0 10/02/2011 Lab Results Component Value Date PT 13.2 10/02/2011 PTT 30 10/02/2011 Lab Results Component Value Date BUN 12 10/02/2011 Lab Results Component Value Date CREATININE 0.92 10/02/2011 Lab Results Component Value Date K 4.3 10/02/2011 Lab Results Component Value Date PLATELET 285 10/02/2011 Medications: Prior to Admission medications Medication Sig Start Date End Date Taking? Authorizing Provider aspirin 81 mg EC tablet Take 1 tablet by mouth daily. 02/17/11 02/17/12 Nitish Hayden MD metoprolol succinate (TOPROL-XL) 50 mg 24 hr tablet Take 1 tablet by mouth daily. 02/17/11 02/17/12 Nitish Hayden MD OXYcodone (ROXICODONE) 15 mg immediate release tablet Take 15 mg by mouth every 4 hours as needed. (7x per day) Historical Provider, docusate sodium (COLACE) 100 mg capsule Take 100 mg by mouth daily as needed. 02/15/11 Historical Provider, PARoxetine (PAXIL) 30 mg tablet Take 60 mg by mouth every morning. Historical Provider, lamoTRIgine (LAMICTAL) 100 mg tablet Take 200 mg by mouth daily. Historical Provider, SUMAtriptan (IMITREX) 100 mg tablet Take 100 mg by mouth as needed. 02/14/11 Historical Provider, ALPRAZolam (XANAX) 1 mg tablet Take 1 mg by mouth nightly as needed. Historical Provider, QUEtiapine (SEROQUEL) 25 mg tablet Take 50 mg by mouth 3 times daily. 02/14/11 Historical ProviderMD * Lety Appiah RN - 10/04/2011 8:49 AM EST Patient complains of pain in her head, described as a pressure, states that it is different than a headache. Tylenol given. Patient also walked to bathroom and on way back states dizziness and nausea, it passed in about 3 minutes, vitals stable. Team called on pager [phone], notified of head pressure.No orders received. * Quirino Morel Jr., - 10/04/2011 7:51 AM EST NEUROLOGY PROGRESS NOTE Patient Name: Sahra Cobb Admit Date: 10/02/2011 Attending: Dr. Morel Clinical Synopsis: 46 year old lady admitted with left parietal hemorrhage. Subjective no complaints Objective Stable vitals, afebrile, MRI brain done: no masses, NS recommends angio Vitals: Temp: [36.4 ??C (97.5 ??F)-37.3 ??C (99.1 ??F)] Heart Rate: [57-71] Resp: [8-17] BP: (100-121)/(72-77) SpO2: [95 %-96 %] Physical Examination General Examination No distress, cooperative.No pallor, cyanosis, clubbing or lymphadenopathy. No JVD. Respiratory System No supra/infraclavicular hollowing. Normal respirations. No tenderness to palpation. Vesicular breath sounds bilaterally. No adventitious sounds Cardiovascular System No visible pulsations,[place] normal,Heart sounds: [id number], S2 normal. No S3/S4. No murmurs. Gastrointestinal System Abdomen: soft, non tender. No organomegaly. Bowel sounds normal Extremities/Dermatology No skin lesions noted. No edema, Peripheral pulses normal Neurological Examination MS/Higher Functions Alert and oriented. Follows commands Speech: fluent, no aphasia/dysarthria or dysphonia Cranial Nerves II-XII: Pupils bilaterally equal and symmetric conjugate gaze, reacting to light. No ptosis/nystagmus. EOMI. No facial droop. Normal sensations and equal sensations bilaterally on face. No weakness of jaw/uvula/ palate Motor Normal tone and bulk of right and left sided muscles Upper extremity: Right: UE 5/5 LE 5/5 Left: UE 5/5 LE 5/5 Reflexes Right: Biceps- +2, Triceps +2, Brachioradialis +2 Knee +2, Ankle +2 Left: Biceps- +2, Triceps +2, Brachioradialis +2 Knee +2, Ankle +2 Flexor plantar bilaterally Sensory Normal sensations bilaterally Coordination Normal No abnormal / involuntary movements Skull and Spine/ Meningeal Signs/Carotids Normal, no meningeal signs, no carotid bruit Labs/ Imaging 1. Superomedial left parietal hematoma with surrounding edema and mass effect. No definite underlying mass is identified. 2. Signal abnormality in the right parietal lobe consistent with the patient???s history of PRES. No results found for this or any previous visit (from the past 24 hour(s)). Assessment and Plan 46 year old female with history of HTN, PRES, depression, migraines admitted with left parietal hemorrhage. Remains normotensive. Neurologically improving sensorium. Imaging not suggestive of aneurysms or underlying masses Impression: Parietal ICH Etiology: likely Hypertensive bleed, to rule out vasculitis, CVST and AV malformation Workup: urine drug screen pending Management Left Parietal ICH Neurochecks, BP control, PT/OT. Headache: PRN oxycodone HTN: controlled metoprolol Migraines on PRN oxycodone Plan: Will get conventional angiogram / workup for vasculitis. Transfer to floor. Control and prophylaxis of headaches with verapamil and gabapentin. Yusef Ibarra MD Resident Physician Neurology Pager [phone] Neurology (Staff) Addendum I saw and evaluated the patient with Dr. Ibarra on 10/04/2011. I have reviewed the resident's history,physical examination findings, assessment and plan during the visit and I agree with the details aswritten, unless otherwise specified as below. 46 y/o woman w/ hx absence sz in childhood, headaches, epsisode of PRES in January 2011 (delirium, seizure, posterior WMH on MRI) admitted from OSH where she presented with seizure, left parietal ICH and antecedent 5 day hx worsening headaches. Hosp course notable for suboptimal control of headaches. Exam shows alert woman, NAD. Speech is clear, hx is apt. PERRL, EOMI, VFIC. Symmetric smile. Appendicular power intact. Head CT - acute left parietal ICH CTA - marred by motion; no vasculopathy identified. MRI Brain - acute left parietal ICH; b/l occipital T2 hyperintensities c/w prior MRI. #ICH; unclear cause, given headaches, SSRI, antipsychotics and triptans, consider vasospasm and RCVS; however CTA unrevealing and given antecedent headaches and prior PRES episode, would consider vasculities; further testing can also better eval for possibility of cortical vein thrombus. -remain NPO -angiogram -send bloods for inflammatory etiologies #headache; would eschew opioids -gabapentin -verapamil -d/c triptan (and henceforth) -d/c quetiapine #HTN -holding parameters given bblocker and verapamil * Alexandre Seaman MD - 10/04/2011 6:31 AM EST Neurosurgery Progress Note 46 yo female patient with history of PRES with spontaneous L parietal IPH HD 2 Events: No events overnight VS: Temp: [36.4 ??C (97.5 ??F)-37.3 ??C (99.1 ??F)] Heart Rate: [57-71] Resp: [8-17] BP: (100-121)/(72-77) SpO2: [95 %-96 %] I/O last 3 completed shifts: In: 680 [P.O.:680] Out: 1300 [Urine:1300] I/O this shift: In: - Out: 950 [Urine:950] Exam: Alert, oriented x 3 Speech fluent and appropriate PERRL EOMI Facial motor function symmetric. No pronator drift. Motor full x 4 Sensation intact to light touch x 4 Labs: Lab Results Component Value Date/Time WBC 9.8 10/02/11 11:25 PM HGB 12.4 10/02/11 11:25 PM PLATELET 285 10/02/11 11:25 PM Lab Results Component Value Date/Time NA 139 10/02/11 11:25 PM K 4.3 10/02/11 11:25 PM CL 104 10/02/11 11:25 PM CO2 29 10/02/11 11:25 PM BUN 12 10/02/11 11:25 PM CREATININE 0.92 10/02/11 11:25 PM Meds Scheduled Meds: ??? chlorhexidine 15 mL Oral Q12H VIANEY ??? sodium chloride 0.9 % 5 mL Intravenous Q12H ??? famotidine 20 mg Oral BID ??? famotidine 20 mg Intravenous BID ??? docusate sodium 100 mg Oral BID ??? metoprolol succinate 50 mg Oral Daily ??? QUEtiapine 50 mg Oral TID ??? lamoTRIgine 100 mg Oral BID ??? DISCONTD: lamoTRIgine 200 mg Oral Daily ??? DISCONTD: PARoxetine 60 mg Oral QAM Continuous Infusions: PRN Meds:.bisacodyl, enalaprilat, acetaminophen, OXYcodone, labetalol, gadopentetate dimeglumine Assessment: Neurologically stable Plan: - neuro checks q 2 - no anticoagulation - keep SBP < 160 - maintain normonatremia - MRI negative - would recommend angio - further care per neurology * Pallavi Welch RN - 10/03/2011 7:06 PM EST RN shift report given to oncoming RN. * Pallavi Wlech RN - 10/03/2011 6:53 PM EST Uneventful day. Pt remains feeling unsteady on feet. Denies headaches. Slept most of the day. Drankseveral cups of coffee. Tolerated meals well. * Pallavi Welch RN - 10/03/2011 11:00 AM EST Pt states has a hard time connecting thoughts with actions. Pt was drinking coffee and slipping it.Has a hard time with coordination. S/B neurology service earlier. Pt was tearful earlier this am talking to father and then to at separate times. Emotional support given to pt. * Alexandre Seaman MD - 10/03/2011 7:28 AM EST Neurosurgery Progress Note 46 yo female patient with history of PRES with spontaneous L parietal IPH HD 1 Events: No events overnight VS: Temp: [36.3 ??C (97.3 ??F)-36.7 ??C (98.1 ??F)] Heart Rate: [58-69] Resp: [8-17] BP: (102-118)/(68-85) SpO2: [95 %-99 %] I/O last 3 completed shifts: In: - Out: 500 [Urine:500] Exam: Alert, oriented x 3 Speech fluent and appropriate PERRL EOMI Facial motor function symmetric. No pronator drift. Motor full x 4 Sensation intact to light touch x 4 Labs: Lab Results Component Value Date/Time WBC 9.8 10/02/11 11:25 PM HGB 12.4 10/02/11 11:25 PM PLATELET 285 10/02/11 11:25 PM Lab Results Component Value Date/Time NA 139 10/02/11 11:25 PM K 4.3 10/02/11 11:25 PM CL 104 10/02/11 11:25 PM CO2 29 10/02/11 11:25 PM BUN 12 10/02/11 11:25 PM CREATININE 0.92 10/02/11 11:25 PM Meds Scheduled Meds: ??? chlorhexidine 15 mL Oral Q12H VIANEY ??? sodium chloride 0.9 % 5 mL Intravenous Q12H ??? famotidine 20 mg Oral BID ??? famotidine 20 mg Intravenous BID ??? docusate sodium 100 mg Oral BID ??? lamoTRIgine 200 mg Oral Daily ??? metoprolol succinate 50 mg Oral Daily ??? PARoxetine 60 mg Oral QAM ??? QUEtiapine 50 mg Oral TID Continuous Infusions: PRN Meds:.bisacodyl, enalaprilat, acetaminophen, OXYcodone, labetalol, DISCONTD: labetalol, iohexol Assessment: Neurologically stable Plan: - neuro checks q 2 - no anticoagulation - keep SBP < 160 - maintain normonatremia - MRI pending - if MRI negative will acquire angio - further care per neurology * Pallavi Welch RN - 10/03/2011 7:21 AM EST RN shift report rec'd. Pt awake, denies discomforts. documented in this encounter H&P Notes * Matthew Joshi MD - 10/03/2011 5:44 AM EST Neurosurgery Consultation Emergency Department CC: L parietal IPH HPI: Asked by Dr. Uribe to see Mrs. Cobb, a 46F with spontaneous left parietal IPH. She has a pmhx of PRES, migraines and seizures who has had a headache for the past five days that was not responsiveto her imitrex medication. Pt states she feels more confused and disoriented and slow in general (physically and cognitively). She was last hospitalized at [facility] in 01/2011 after having a grand mal seizure at OSH. Pt was f/u by neurology at the time time and they diagnosed the patient based on MRI with progressive reversible encephalopathic syndrome. AT OSH pt noted to have vital within normal range including BP in the 130'-140's max. Denies any focal weakness, numbness or tingling in either upper or lowe extremities. PMH: HTN PRES Seizures Depression Lumbar laminectomy, cervical fusion, left ankle surgery, appendectomy, right shoulder surgery, hysterectomy Medications: See EDH Allergies: See EDH Social Hx: + Tobacco - ETOH Lives with ROS: Constitutional: No recent weight loss, fevers, chills, night sweats. HEENT: No recent visual changes, hearing changes, headache. Cardiovascular: No chest pain, palpitations, orthopnea. Pulmonary: No shortness of breath. No cough, no wheezing. GI: No abdominal pain, vomiting, significant change in bowel habits. : No dysuria, urinary retention, urinary incontinence. Musculoskeletal: No joint pain. Endocrine: No heat/cold intolerance, polyuria. Skin: No rashes. Neuro: See HPI. Physical Exam: Vital Signs: Temp: [36.3 ??C (97.3 ??F)-36.7 ??C (98.1 ??F)] Heart Rate: [58-69] Resp: [8-17] BP: (102-118)/(68-85) SpO2: [95 %-99 %] Neuro: Sensorium: Eyes closed but opens to voice. Oriented x3. Speech - fluent, naming and repetition intact CN: CN II - Vision grossly intact all 4 quadrants CN III, IV, - EOMI. No diplopia CN V - V1-3 dermatomes intact to LT, MM 5/5 bilat CN VII - No facial asymmetry CN VIII - Hearing intact to limited bedside exam CN IX, X - Uvula midline, gag present CN XI - SCM and trapezius 5/5 bilat CN XII - Tongue midline Motor: Pronator drift: Rt - Lt - Arms Bi [employer] R 5 5 5 L 5 5 5 Legs HF HE KF KE DF PF R 5 5 5 5 5 5 L 5 5 5 5 5 5 Reflexes: R L Biceps 2+ 2+ Patellar 2+ 2+ Toes Downgoing Downgoing Sensory: LT - Intact to x4 extremities PP - Intact to x4 extremities JPS - Intact in bilat forefingers & big toes Cerebellar: Dysmetria: None Labs: Recent Labs Basename 10/02/11 2325 ??? WBC 9.8 ??? HGB 12.4 ??? HCT 36.5 ??? PLATELET 285 ??? K 4.3 ??? CL 104 ??? CO2 29 ??? BUN 12 ??? CREATININE 0.92 ??? PTT 30 ??? PT 13.2 ??? INR 1.0 Na: 139 Impression: 46F h/o PRES with headache five days and left parietal IPH 2x3cm high vertex. Repeat CT stable and no evidence of vascular anomalies on CTA. Some confusion but otherwise without any focal deficits. Plan: 1- Admit /NSCU 2- NPO 3- Labs (CBC, Coag, Lytes, BUN, Creat, T&X) 4- Neurology 5- keep SBP less than 150 6- No anticoagulation Neurosurgery Attending addendum: I have seen and independently examined the above patient. I have reviewed the resident's history, physical exam, and impressions. I agree with the above, with the following additions/amendments: 46 yo woman with history of seizure disorder and diagnosis of PRES resulting from admission in January.She presents with confusion and difficulty with fine motor tasks, particularly on the right side. On my interview today, she is unsure if she had a seizure, but this is documented in the record. Imaging reveals left parietal lobar hemorrhage with edema but not significant mass effect. On MRI, thereis right occipital FLAIR abnormality. No flow voids. Sinuses appear patent. CTA is very limited. She is awake and alert, without aphasia. VFF to confrontation, +sensory extinction. Motor full, no drift. Remembers 1/3 at 5 minutes. Impression/Plan: Left parietal hemorrhage, no indication for surgery at this time. Would consider conventional angiogram to rule out structural etiology (small fistula, vasculitis), but will defer toneurology (primary service). Will continue to follow while here in the hospital, but barring clot expansion or new findings, patient can fu with neurology, and no scheduled fu with neurosurgery is needed. Keyon Joshi MD Neurosurgery * Eloy Uribe MD - 10/03/2011 12:39 AM EST ADMISSION HISTORY AND PHYSICAL: NEUROLOGY PATIENT DETAILS Patient name:Sahra Cobb Date of :1965 Admit date: 10/02/2011 HISTORY PRESENTING COMPLAINTS : IPH, left. HISTORY OF PRESENTING COMPLAINTS : 46 year old lady transferred from OSH due to IPH - According to patient she doesn't recollect the events much. She says she had a seizure today morning while at home and was taken to hospital - has headache for past few days, not controlled with migraine medications. No h/o weakness/ nausea/ vomiting. - transfer accepted by [facility] to ED. Was evaluated and had a repeat CT head, reportedly stable. CTA showing no evidence of aneurysm. No interventions required per neurosurgery. Advised admission to neurology service for monitoring. Past Medical History: HTN PRES Seizures Depression Lumbar laminectomy, cervical fusion, left ankle surgery, appendectomy, right shoulder surgery, hysterectomy Family history: non contributory Personal History: smoking +, no alcohol/drug abuse. Disabled, lives with , has 2 sons. Medications: No current facility-administered medications on file prior to encounter. Current outpatient prescriptions ordered prior to encounter Medication Sig Dispense Refill ??? aspirin 81 mg EC tablet Take 1 tablet by mouth daily. 30 tablet ??? metoprolol succinate (TOPROL-XL) 50 mg 24 hr tablet Take 1 tablet by mouth daily. 30 tablet 12 ??? OXYcodone (ROXICODONE) 15 mg immediate release tablet Take 15 mg by mouth every 4 hours as needed. (7x per day) ??? docusate sodium (COLACE) 100 mg capsule Take 100 mg by mouth daily as needed. ??? PARoxetine (PAXIL) 30 mg tablet Take 60 mg by mouth every morning. ??? lamoTRIgine (LAMICTAL) 100 mg tablet Take 200 mg by mouth daily. ??? SUMAtriptan (IMITREX) 100 mg tablet Take 100 mg by mouth as needed. ??? ALPRAZolam (XANAX) 1 mg tablet Take 1 mg by mouth nightly as needed. ??? QUEtiapine (SEROQUEL) 25 mg tablet Take 50 mg by mouth 3 times daily. Allergies: Allergies Allergen Reactions ??? Amoxicillin Unknown pt unsure ??? Sulfa (Sulfonamide Antibiotics) Other (See Comments) Edema and itching ??? Ampicillin Itching ??? Codeine Phos Itching Review of systems: Constitutional: No fevers or chills Eyes: No vision changes, no diplopia, no blurry vision ENT: No rhinorrhea or pharyngitis, no meningismus CV: No chest pain or palpitations Resp: No cough, no shortness of breath GI: No nausea, vomiting, diarrhea or constipation : No dysuria, no incontinence Heme: No bleeding or bruising Endo: No diabetes or thyroid disease Neuro: See HPI Psych: No depression, normal sleep [x] Review of systems otherwise negative Physical Exam: Patient Vitals in the past 8 hrs: BP Temp Temp src Pulse Resp SpO2 10/02/11 2330 102/68 mmHg 36.3 ??C (97.3 ??F) Oral 69 11 95 % 10/02/11 2126 109/84 mmHg 36.7 ??C (98.1 ??F) Oral 63 8 99 % Physical Examination o General Examination No distress, cooperative.No pallor, cyanosis, clubbing or lymphadenopathy. No JVD. o Respiratory System No supra/infraclavicular hollowing. Normal respirations. No tenderness to palpation. Vesicular breath sounds bilaterally. No adventitious sounds o Cardiovascular System No visible pulsations,[place] normal,Heart sounds: [id number], S2 normal. No S3/S4. No murmurs. o Gastrointestinal System Abdomen: soft, non tender. No organomegaly. Bowel sounds normal o Extremities/Dermatology No skin lesions noted. No edema, Peripheral pulses normal Neurological Examination o MS/Higher Functions Speech: fluent, no aphasia/dysarthria or dysphonia Alert and oriented. o Cranial Nerves II-XII: Pupils bilaterally equal and symmetric conjugate gaze, reacting to light. No ptosis/nystagmus. Vision normal. No field deficits. EOMI. No facial droop. No weakness of jaw/uvula/ palate o Motor Normal tone, bulk and strength of right and left sided muscles ? Drift RUE. o Coordination Normal o Sensory Normal sensations bilaterally o Reflexes Right: Biceps- +2, Triceps +2, Brachioradialis +2 Knee +2, Ankle +2 Left: Biceps- +2, Triceps +2, Brachioradialis +2 Knee +2, Ankle +2 Plantar: equivocal o Skull and Spine/ Meningeal Signs/Carotids Normal, no meningeal signs, no carotid bruit Labs/ Imaging: CT scan reported as left IPH, no aneurysm on CTA. ASSESSMENT & PLAN : 46 year old lady with history of HTN/PRES, depression, smoking admitted with headaches, seizures found to have Left ICH. Neurologically no weakness/ sensory abnormalities noticed. CTA not showing anyaneurysms. Impression: ICH Etiology: likely HTN [facility], Neurochecks. Neurosurgery on consult. Hydration PT/OT evaluation SCD. GI prophylaxis. Lipid profile, HbA1C [facility] diet Full code. Seizures: Lamicatal, lamictal level Yusef Ibarra MD Resident Physician Neurology Pager [phone] Neurology (Staff) Addendum I saw and evaluated the patient with Dr. Ibarra on 10/03/2011. I have reviewed the resident's history,physical examination findings, assessment and plan during the visit and I agree with the details aswritten, unless otherwise specified as below. 46 y/o woman presents with 1 weeks of increased headache and cognitive complaints and a seizure. Onexam, poor working memory, mild R/L confusion, normal visual lawrence, normal cranial nerves, mild RUE and RLE long track signs. MR shows left parietal ICH with bilateral occipital FLAIR abnormalities,subtle enhancement in right occipital lobe? CTA reviewed without obvious vascular abnormalities. Cause of ICH uncertain, possibly HTN related, ?related to PRESS, RCVS or PACNS? -blood pressure control, urine tox, stop Paxil documented in this encounter Procedure Notes * Provider, Scanning - 10/06/2011 1:03 PM ESTAssociated Order(s): SCAN DOC: CUTTER HEAD SHARPENER * Nadir Mullen MD - 10/05/2011 10:27 AM EST CEREBRAL ANGIOGRAM: HISTORY: Left parietal hemorrhage PROCEDURE: Cerebral angiogram. OPERATORS: Dr. Nadir Mullen, Dr. Pablito Bunch. ANESTHESIA: Moderate sedation with intravenous Versed and fentanyl. EBL: Less than 50 mL. CONTRAST: 40 mL Visipaque. RADIATION EXPOSURE: 730.9 mGy A plane, 324.7 mGy B plane. MATERIALS: Micropuncture set, 0.035 inch 3J-wire, 0.035 inch Glidewire, 5Fr Richfield sheath, 5Fr Justin catheter. DESCRIPTION: The procedure and its risks were discussed with the patient and written informed consent was obtained. She was brought to the angiography suite and placed supine. Her right groin was sterilely prepped and draped. The right femoral artery was accessed using a micropuncture set and the 5-Fr femoral sheath placed and flushed. The 5-Fr Justin catheter was placed in the descending aorta over the 3J-wire, flushed, and connected to a continuous heparinized saline infusion. This catheter was sequentially directed tothe right common carotid, right internal carotid, left common carotid, left internal carotid, left external carotid and left vertebral arteries. From each position, biplane cerebral angiography was performed. The catheter was removed.The patient tolerated the procedure well and there were no immediate complications. FINDINGS: RIGHT COMMON CAROTID ROADMAP: The right carotid bifurcation is of normal course and caliber. RIGHT INTERNAL CAROTID ARTERY: There is mild irregularity and subtle distal arterial pruning in thedistal inferior parietal and occipital branches. The internal carotid artery and its major branchesare of normal course and caliber. LEFT COMMON CAROTID ARTERY ROADMAP: The left carotid bifurcation is of normal course and caliber. LEFT INTERNAL CAROTID ARTERY: The internal carotid artery and its major branches are of normal course and caliber. There is mild irregularity and subtle distal arterial pruning in the distal inferiorparietal branches. The internal carotid artery and its major branches are of normal course and caliber. LEFT EXTERNAL CAROTID ARTERY: The left externall carotid artery and its major branches are of normal course and caliber. LEFT VERTEBRAL ARTERY INJECTION: The left vertebral, basilar and posterior cerebral arteries are normal. IMPRESSION: 1. Small areas of distal arterial narrowing in the parietal and occipital lobes. No other arterial or venous abnormality. 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 Nadir Alvarado, was present for the entire procedure. * Pablito Bunch MD - 10/04/2011 12:32 PM EST PRE-PROCEDURE VIR NOTE Date of : 1965 Age: 46 y.o. PCP: PARK RAWLS APRN Referring Physician (if different): Jennyfer Arce Indication: Left parietal hemorrhage and seizure Planned Procedure: Cerebral angiogram Chief Complaint/Diagnosis: 46 yo woman presents with seizure. Know history of PRES. PNH of HTN. Recent headache not controlled with migraine medications. CT demonstrates left parietal hemorrhage. Pertinent Past Medical/Surgical History: Patient Active Problem List Diagnoses Code ??? PRES (posterior reversible encephalopathy syndrome) 348.39AD ??? Cervical spondylosis 721.0D History reviewed. No pertinent past surgical history. Allergies Allergen Reactions ??? Amoxicillin Unknown pt unsure ??? Sulfa (Sulfonamide Antibiotics) Other (See Comments) Edema and itching ??? Ampicillin Itching ??? Codeine Phos Itching No current facility-administered medications on file prior to encounter. Current outpatient prescriptions ordered prior to encounter Medication Sig Dispense Refill ??? aspirin 81 mg EC tablet Take 1 tablet by mouth daily. 30 tablet ??? metoprolol succinate (TOPROL-XL) 50 mg 24 hr tablet Take 1 tablet by mouth daily. 30 tablet 12 ??? OXYcodone (ROXICODONE) 15 mg immediate release tablet Take 15 mg by mouth every 4 hours as needed. (7x per day) ??? docusate sodium (COLACE) 100 mg capsule Take 100 mg by mouth daily as needed. ??? PARoxetine (PAXIL) 30 mg tablet Take 60 mg by mouth every morning. ??? lamoTRIgine (LAMICTAL) 100 mg tablet Take 200 mg by mouth daily. ??? SUMAtriptan (IMITREX) 100 mg tablet Take 100 mg by mouth as needed. ??? ALPRAZolam (XANAX) 1 mg tablet Take 1 mg by mouth nightly as needed. ??? QUEtiapine (SEROQUEL) 25 mg tablet Take 50 mg by mouth 3 times daily. Pertinent ROS: as per HPI Pertinent Family History: non contributory Social History: n/a Labs: Lab Results Component Value Date WBC 9.8 10/02/2011 HCT 36.5 10/02/2011 PLATELET 285 10/02/2011 INR 1.0 10/02/2011 BUN 12 10/02/2011 Lab Results Component Value Date ALKPHOS 86 02/15/2011 AST 30 02/15/2011 ALBUMIN 3.5 02/15/2011 BILIDIR 0.1 02/15/2011 BILITOT 0.6 02/15/2011 ALT 22 02/15/2011 Imaging: CT head, 10/02/2011, CTA Head 10/02/2010, MR brain 10/03/2010 Addendum: Risks (including hemorrhage, infection, allergic reaction, occlusion, respiratory depression), and benefits discussed and patient consented to the procedure. Physical Exam Heart: RRR Lungs: clear Neuro: A& O x 3, CN II-XII intact, speech fluent, negative Romberg. Strength b/l UE 5/5, b/l LE5/5 Pedal Pulses: 2+ b/l ASA Classification: ASA 2 - Patient with mild systemic disease with no functional limitations Mallampati Classification: II (soft palate, uvula, fauces visible) Assessment / Plan: 46 yo woman presents with seizure. Know history of PRES. PNH of HTN. Recent headache not controlled with migraine medications. CT demonstrates left parietal hemorrhage. Cerebral angiogram Medications to discontinue: none Prophylactic antibiotic: none Planned access site / position: [employer] documented in this encounter ED Notes * Israel Reyez RN - 10/03/2011 1:29 AM EST Report to [facility]. Pt is resting quietly, NAD, clinical status unchanged. * Israel Reyez RN - 10/02/2011 11:38 PM EST Patient is resting comfortably, eyes closed, respirations regular, and even, NAD. Vital signs stable, pt pupils ER, able to move all four ext to command, AxO x3. * Israel Reyez RN - 10/02/2011 10:35 PM EST Pt returned from CT, neurosurgery in to asses pt. * Israel Reyez RN - 10/02/2011 10:[address], vital signs stable, neurosurgery has been in to see pt. * Jan Everett MD - 10/02/2011 9:59 PM EST Chief Complaint Patient presents with ??? Headache HPI Patient a 46 y/o female with pmhx of PRES, seizures, depression, epilepsy, DJD, fibromyalgia, migraines who presents on transfer from [facility] hospital with a left ICH. Pt had a headache for the past fivedays that was not responsive to her imitrex medication. Pt states she feels more confused and disoriented and slow in general (physically and cognitively). Pt hospitalized at [facility] in 01/2011 after having a grand mal seizure at OSH. Pt was f/u by neurology at the time time and they diagnosed the patient based on MRI with progressive reversible encephalopathic syndrome. AT OSH pt noted to have vitalwithin normal range including BP in the 130'-140's max. Pt states she takes her 50mg of Toprol every day. She takes opioids for her pain management but denies any cocaine or illicit drugs otherwise. Past Medical History Diagnosis Date ??? Seizures ??? Depression ??? HTN (hypertension) Allergies Allergen Reactions ??? Amoxicillin Unknown pt unsure ??? Sulfa (Sulfonamide Antibiotics) Other (See Comments) Edema and itching ??? Ampicillin Itching ??? Codeine Phos Itching Review of Systems Constitutional: Negative for fever, chills, diaphoresis, appetite change, fatigue and unexpected weight change. HENT: Negative for congestion, rhinorrhea, sneezing, postnasal drip and sinus pressure. Eyes: Negative for visual disturbance. Respiratory: Negative for choking, chest tightness and shortness of breath. Cardiovascular: Negative for chest pain, palpitations and leg swelling. Gastrointestinal: Negative for abdominal pain and abdominal distention. Genitourinary: Negative for dysuria, frequency, hematuria and flank pain. Musculoskeletal: Positive for back pain. Negative for myalgias and joint swelling. Neurological: Positive for weakness and headaches. Negative for tremors, seizures, facial asymmetry, speech difficulty and light-headedness. Psychiatric/Behavioral: Positive for confusion and decreased concentration. The patient is not nervous/anxious. Physical Exam Constitutional: She appears well-developed and well-nourished. No distress. HENT: Head: Normocephalic and atraumatic. Mouth/Throat: No oropharyngeal exudate. Eyes: Conjunctivae and EOM are normal. Pupils are equal, round, and reactive to light. Neck: Neck supple. Cardiovascular: Normal rate, regular rhythm and normal heart sounds. Exam reveals no gallop and no friction rub. No murmur heard. Pulmonary/Chest: Effort normal and breath sounds normal. No respiratory distress. She has no wheezes. She has no rales. She exhibits no tenderness. Abdominal: Soft. Bowel sounds are normal. She exhibits no distension. No tenderness. Musculoskeletal: She exhibits no edema. Lymphadenopathy: She has no cervical adenopathy. Neurological: She is alert. She has normal strength. She displays no atrophy and no tremor. No cranial nerve deficit or sensory deficit. She exhibits normal muscle tone. She displays a negative Romberg sign. She displays no seizure activity. Coordination normal. Skin: Skin is warm and dry. She is not diaphoretic. Procedures MDM ED Course: On admission to ED. Pt's vitals were wnl with BP's in there 120's/80's. Pt went for CTA head and neck to rule out an AV fistula that could be contributing to the Left IPH. That study's prelim report was negative. Pt's labs wnl. UA and UCx still to be collected and pending urine sample. Pt had labs c/w with UTI at OSH. Currently stable to be be admitted to neurology service for further monitoring of ICH 46 year old lady with history of HTN/PRES, depression, smoking admitted with headaches, seizures found to have Left ICH. Neurologically no weakness/ sensory abnormalities noticed. CTA not showing anyaneurysms. Impression: ICH Etiology: likely HTN Plan: Admit to Neurology Jan Everett MD Resident 10/03/11 0118 Jan Everett MD Resident 10/03/11 0118 Jan Everett MD Resident 10/03/11 0121 Jan Everett MD Resident 10/12/11 1323 * Israel Reyez RN - 10/02/2011 9:51 PM EST Drowsy but arousable. Follows commands, is AxO x 3, pupils ER bilat, NAD. * Israel Reyez RN - 10/02/2011 9:51 PM EST * Ivan Ohara - 10/02/2011 9:38 PM EST Chief Complaint Patient presents with ??? Headache HPI Allergies Allergen Reactions ??? Amoxicillin Unknown pt unsure ??? Sulfa (Sulfonamide Antibiotics) Other (See Comments) Edema and itching ??? Ampicillin Itching ??? Codeine Phos Itching Review of Systems Physical Exam Procedures MDM ED Course: ED ATTENDING ADDENDUM: ED ATTENDING BRIEF NOTE: This 46 y.o. female was transferred from an outside hospital emergency department to receive specialty care provided by the neurosurgery service for left parietal intraparenchymal hemorrhage. I reviewed the patients vitals as recorded in the electronic medical record, ED nursing notes, and discussed the case with resident/fellow of the accepting service. The patient was deemed to be stable and not require significant involvement from the attending emergency physician at this time. The acceptingservice has assumed further care of the patient. Please see their notes for any further clinical details. Ivan Ohara Jr., MD 10/02/11 2139 documented in this encounter Miscellaneous Notes * Miscellaneous - Provider, Scanning - 10/08/2011 8:31 AM EST * Miscellaneous - Provider, Scanning - 10/06/2011 1:03 PM EST * Med Student Progress Note - Dirk Crooks - 10/04/2011 6:11 PM EST Neurology Medical Student Inpatient Progress Note Admission date: 10/02/2011 Responsible Attending: Quirino Morel PATIENT ID: Sahra Cobb is a 46 y.o. female who presented with acute onset headache, AMS, admitted with left parietal hemorrhage. This is Hospital Day 4. PROBLEM LIST #Left Parietal hemorrhage #Posterior reversible encephalopathy syndrome #H/o Seizures #Migraines #Depression #Cervical spondylosis SUBJECTIVE Interval History Consults: Nutrition: Continue [facility] diet PT/Speech unable to evaluate due to pt out of room, at angio OT: need skilled OT; per patient, she is followed by PT as outpatient Per Pt -CHOWDARY improving, 11/28 compared to 01/28 yesterday. CHOWDARY -Difficulty with gait when ambulating quickly; feels unbalanced Relevant Meds ??? QUEtiapine 75 mg Oral Nightly ??? gabapentin 300 mg Oral TID ??? verapamil 120 mg Oral Nightly ??? DISCONTD: diphenhydrAMINE 50 mg Intravenous Once ??? DISCONTD: ondansetron 4 mg Intravenous Once ??? sodium chloride 0.9 % 5 mL Intravenous Q12H ??? famotidine 20 mg Oral BID ??? famotidine 20 mg Intravenous BID ??? docusate sodium 100 mg Oral BID ??? metoprolol succinate 50 mg Oral Daily ??? lamoTRIgine 100 mg Oral BID ??? DISCONTD: chlorhexidine 15 mL Oral Q12H VIANEY ??? DISCONTD: QUEtiapine 50 mg Oral TID PRN Meds: Available: DISCONTD: fentaNYL (PF), DISCONTD: midazolam, bisacodyl, enalaprilat, acetaminophen, OXYcodone, labetalol Given: Tylenol 650 mg x 1, Roxicodone 15 mg x 5 OBJECTIVE Vitals Last value 24hr range T 36.6 ??C (97.9 ??F) Temp: [36.5 ??C (97.7 ??F)-37.2 ??C (99 ??F)] HR 70 Heart Rate: [52-75] BP 100/43 mmHg (RN aware of BP) BP: (100-148)/(43-99) RR 16 Resp: [11-18] SpO2 97 % SpO2: [94 %-98 %] Intake/Output Summary (Last 24 hours) at 10/05/11 0652 Last data filed at 10/05/11 0502 Gross per 24 hour Intake 710 ml Output 1600 ml Net -890 ml Physical Exam General: Resting at bedside with breakfast, alert, pleasant, cooperative HEENT: normocephalic/atraumatic. OP clear. Neck is supple. No meningeal signs CV: regular rate/rhythm, no murmurs/rubs/gallops. No carotid bruits ascultated. Pulm: clear to auscultation bilaterally, no wheezing, rhonci, rales Abd: soft, non-tender, non-distended, normoactive bowel sounds Extremities: warm and well perfused, no rashes Neuro: Mental Status: Aert and oriented to person, place and date. Speech is fluent without dysarthria or aphasia. Naming, reading, repetition intact. Able to spell WORLD forwards and backwards. Able to follow multistep commands; difficulty with R-L confusion, especially on R side with commands crossing the midline. CN: PERRL, EOMI, no ptosis, visual lawrence intact. Facial sensation intact to light touch throughout. Hearing intact to fingerub bilaterally. Face symmetric without ptosis or droop. Midline palatal elevation and tongue protrusion. Normal shoulder shrug, normal head rotation strength. Motor: Normal tone and bulk. No tremor or pronator drift. RUE: 5/5 LUE: 5/5 RLE: 5/5 LLE: 5/ Reflex: +2 DTR bilaterally, no plantar extensor reflexes appreciated bilaterally Sensation: intact to touch, temp, pin, vibration, and proprioception throughout. Coordination: Normal [id number], rapid alternating movements, finger taps. Romberg not present Gait: Deferred as pt reports difficulty when walking fast Labs: Recent Labs Basename 10/02/112324 ??? WBC 9.8 ??? HGB 12.4 ??? HCT 36.5 ??? PLATELET 285 Recent Labs Basename 10/05/1144810/02/112324 ??? NA 141 139 ??? K 4.2 4.3 ??? CL 108* 104 ??? CO2 24 29 ??? BUN 15 12 ??? CREATININE 0.84 0.92 Recent Labs Basename 10/02/112324 ??? GLUCOSE 89 Recent Labs Basename 10/05/1144810/02/112324 ??? CALCIUM 9.0 8.6 ??? MAGNESIUM -- -- ??? PHOS -- -- Recent Labs Basename 10/02/112324 ??? PT 13.2 ??? PTT 30 ??? INR 1.0 Pertinent Radiographic/Diagnostic Results: Date Study Impression 10/04/10 Angiogram Preliminary impression of no gross abnormality as read by Neurology team. Final read from Radiology pending ASSESSMENT AND PLAN Sahra Cobb is a 46 y.o. female w/ history of PRES, HTN, depression, migraines, chronic pain admitted with L parietal hemorrhage, of unknown etiology. The cause for hemorrhage in a person of her age and history is unclear. The differential at this point includes a hypertensive bleed, possibly in the setting of sumatriptan use with a rule out for any underlying connective tissue diseases, vasculitides, etc.. Reversible cerebral vasoconstriction less likely at this time given angio. Today, she is improved and has responded well to management of her CHOWDARY with verapamil with no significant effect to BP. Goals of management at this point will include optimization of management for pain, CHOWDARY as well as BP. #L Parietal ICH -Continue neuro check, BP control -Appreciate PT/OT evaluation for need of continued care after discharge #HTN -Well controlled on metoprolol #Migraines #Headache 2/2 L Parietal ICH #H/o Chronic Pain -Currently on PRN oxycodone, Gabapentin, and verapamil. -Consider follow-up with pain management post discharge #Depression -Paxil held due to concern for RCVS; will consider restart upon discharge -Continue seroquel #Seizures -Continue Lamictal. Level pending. #PPx: ISS/Pepcid/bisacodyl/ambulate ab ashwini and with assistance if needed #Dispo: Consider d/c to rehab pending PT/OT recommendation. * Initial Assessments - Ce Bar, OT - 10/04/2011 10:11 AM EST Occupational Therapy Evaluation Patient profile: Sahra Cobb is a 46 y.o. female of Quirino Carson Jr., DO, with history of PRES, was admitted on 10/02/2011 with left parietal hemorrhage. Patient Active Problem List Diagnoses Code ??? PRES (posterior reversible encephalopathy syndrome) 348.39AD ??? Cervical spondylosis 721.0D History reviewed. No pertinent past surgical history. Social History: Patient lives with her in a trailer that is 1 level with 2 steps to enter without a railing. She has a tub shower. Baseline ADL/Mobility: At baseline, pt was independent with ADL's, IADL's and functional mobility without a device. She was driving, though the week or so before admission, pt reports being sick and 5 days before admission, she reports having a headache. During this time, pt noticed her balance, coordination, and depth perception were off. She fell down the stairs multiple times, though denies hitting her head and denies LOC. Precautions/Special Considerations: at risk to fall with h/o falls RESIDENTIAL MONITOR, impaired proprioception, impaired coordination, impaired depth perception Subjective: I don't trust myself (with walking/driving) Objective: Seen today for OT evaluation. Cognitive Status/Behavior: alert, oriented to person, place, and time, aware of situation, appears with intact safety awareness/judgement, reports impaired memory of events from prior day/earlier in day, My brain is mush. Vision & Perception: horizontal nystagmus noted in both eyes when tracking to the right; visualfields appear intact; pt wears glasses all the time-with glasses on, visual acuity appears intact (read name badge and clock on wall); depth perception impaired at ~5-6'; impaired right/left discrimination, impaired proprioception in bilateral UE's and appeared in LE's as well, though not assessed Range of motion, strength, coordination: Hand dominance: right Bilateral UEs are within functional limitations for strength and ROM, impaired gross and fine motorcoordination, impaired proprioception-awkward fitness management director, but crossing midline and adjusting appropriately (not apraxic); with FNF test, impaired speed with bilateral UE's, accuracy slightly worse on right (undershooting/overshooting targets) LE limitations: strength appears intact, though pt reports pain with L LE knee extension (from prior injury/history); ? Impaired proprioception Sensation: intact to light touch throughout; decreased proprioception in UE's, likely LE's as well Activities of Daily Living: Self-feeding: NPO today, though pt reports mild difficulty using utensils to feed herself (though was able to manage this) Upper body self care: pt stood at the sink to wash her face and upper body, and brush her teeth with SBA for balance and set up; impaired coordination with knocking items over, though with extra time, she was able to screw on/off the toothpaste cap, apply toothpaste to brush, and brush her teeth (adjusting her product/device technologist appropriately/crossing midline appropriately, though awkward fitness management director at times) Lower body self care: able to kika/doff her socks seated, would need assist for pant hike Toileting: not observed Functional Mobility: Supine to sit: with HOB elevated, pt was supervision to EOB Sit to stand: contact guard Ambulation: contact guard to min A with no device, unsteady, reaching for furniture Stand to sit: contact guard Sit to supine: supervision Balance: good sitting balance, impaired standing balance with wide NICOLLE Endurance: Information taken from last recorded vitals in flowsheet. Last value Range last 8 hrs Heart Rate Heart Rate: 72 Heart Rate: [52-72] Blood Pressure BP: 116/87mmHg following activity BP: (111-148)/(79-98) SpO2 SpO2: 94 % on RA SpO2: [94 %-98 %] Pt becomes fatigued quickly with activity, though was able to tolerate standing at the sink for ~5-7 mins Pain: At rest: 8 on a scale of 1 - 10 Location: headache pain, right side more than L Following activity: 6 on a scale of 1 - 10 Location: headache pain MD aware of pt's pain level and may switch medications; pt reported her pain was tolerable enough for activity Coping: fair, appears with good sense of deficit, further social supports are unclear Skin: Not assessed Informed Consent: The patient agrees to and understands the OT treatment plan and goals. Education: patient has been educated on Role of occupational therapy/rehabilitation, Transfers, ADL, Positioning, Safety, Precautions/Protocol, Functional Mobility, Activity pacing/Energy conservation, Balance and Recommendations and verbalizes understanding. Patient status, treatment, and mobility recommendations discussed with nursing. Assessment: Pt presents s/p left parietal IPH with impaired ability to perform daily activities andfunctional mobility secondary to impaired balance, impaired UE and potentially LE proprioception, impaired coordination (fine and gross motor), impaired depth perception, and subjective memory impairments. Pt currently requires assist with all mobility and would likely benefit from using a device with activity as she is unsteady and reaching out for objects while mobilizing. Pt also reported several falls that occurred at home prior to admission while pt was experiencing the headache pain/dizziness. Pt would benefit from ongoing OT services to maximize functional independence. Medical plan may involve angiogram later today. Recommendations: Equipment needs at discharge: ? assistive device (PT to evaluate), shower seat Discharge Recommendations: Recommend continued skilled OT services upon d/c. Other Recommendations: No other consults recommended at this time Goals: To be achieved within 1 week, by 10/11/11: 1. Patient will perform hygiene tasks independently standing at the sink. 2. Patient will perform lower body self-care independently. 3. Patient will ambulate independently to the bathroom with least restrictive device. 4. Patient will maintain compliance with UE coordination/exercise program. 5. Pt will demonstrate understanding of adaptive strategies for impaired depth perception and impaired proprioception. Plan: Pt to be seen 4-5 times per week for therapy including Role of occupational therapy/rehabilitation,Transfers, Assistive device/technique, ADL, Exercise, Positioning, Safety, Functional Mobility, Activity pacing/Energy conservation, Home Program, Home Management, Balance, Recommendations, Family training and Discharge planning. Total time spent with patient: 51 minutes for initial evaluation Total timed interventions: 0 minutes Pager: [phone] CE BAR OT 10/04/2011 Occupational Therapy Rehabilitation Department * Discharge Summary - Yusef Ibarra - 10/04/2011 8:00 AM EST NEUROLOGY INPATIENT DISCHARGE SUMMARY Patient Name: Sahra Cobb : 1965 Admit Date: 10/02/2011 Discharge Date: Primary Diagnosis: Left parietal hemorrhage. Secondary Diagnosis: There are no hospital problems to display for this patient. Past Medical History Diagnosis Date ??? Seizures ??? Depression ??? HTN (hypertension) History of Presentation: 46 year old lady transferred from OSH due to [facility] - According to patient she doesn't recollect the events much. She says she had a seizure today morning while at home and was taken to hospital - has headache for past few days, not controlled with migraine medications. No h/o weakness/ nausea/ vomiting. - transfer accepted by NS to ED. Was evaluated and had a repeat CT head, reportedly stable. CTA showing no evidence of aneurysm. No interventions required per neurosurgery. Advised admission to neurology service for monitoring. Physical Exam at Admission: 10/02/11 2126 109/84 mmHg 36.7 ??C (98.1 ??F) Oral 63 8 99 % Physical Examination General Examination No distress, cooperative.No pallor, cyanosis, clubbing or lymphadenopathy. No JVD. Respiratory System No supra/infraclavicular hollowing. Normal respirations. No tenderness to palpation. Vesicular breath sounds bilaterally. No adventitious sounds Cardiovascular System No visible pulsations,[place] normal,Heart sounds: [id number], S2 normal. No S3/S4. No murmurs. Gastrointestinal System Abdomen: soft, non tender. No organomegaly. Bowel sounds normal Extremities/Dermatology No skin lesions noted. No edema, Peripheral pulses normal Neurological Examination MS/Higher Functions Speech: fluent, no aphasia/dysarthria or dysphonia Alert and oriented. Cranial Nerves II-XII: Pupils bilaterally equal and symmetric conjugate gaze, reacting to light. No ptosis/nystagmus. Vision normal. No field deficits. EOMI. No facial droop . No weakness of jaw/uvula/ palate Motor Normal tone , bulk and strength of right and left sided muscles ? Drift RUE. Coordination Normal Sensory Normal sensations bilaterally Reflexes Right: Biceps- +2, Triceps +2, Brachioradialis +2 Knee +2, Ankle +2 Left: Biceps- +2, Triceps +2, Brachioradialis +2 Knee +2, Ankle +2 Plantar: equivocal Skull and Spine/ Meningeal Signs/Carotids Normal, no meningeal signs, no carotid bruit NIH stroke Scale: 0 Hospital Course: Sahra Cobb was admitted to the neurology service for further evaluation. Neurological examination on admission did not show any focal deficits. Patient was monitored with frequent checks of vitalsand neurological status in the ISCU. Telemetry monitoring was unrevealing for arrhythmia. BP control was maintained without need for labetalol. MRI demonstrated no underlying massess with flair hyperintensity in contralateral occipital cortex suggestive of PRES. Vascular imaging with CTA showed no aneurysm. However due to PRES and location of hemorrahge vasculitis and AV malformations needed to be rule out . Patient underwent a conventional angiogram. Angiogram didn't show any of those pathologies Most likely etiology of stroke was Hypertension. There was a possibility of sumatriptan overuse contributing to her symptoms. She agreed to taking 3-5 tablets a day for few days preceding admission. Patient was evaluated by rehabilitation services and deemed appropriate for Skilled PT/OT in outpatient setting since patient had some ataxia. She was advised a walker which was arranged. Patient didhave a PT in outpatient settings where she previously was visiting. Patient was started on verapamil and gabapentin for control and prophylaxis of headaches. On day of discharge patient Had improvement in her headaches. . Patient will be discharged on the ambulatory regimen with Neurology Resident clinic follow-up as outlined below. Plan was to have her f/up also in pain clinic for evaluation of opioid overuse and gradual taper. Patient was also encouraged to avoid use of sumatriptan and overuse of opioids. LDL was mildly elevated. Patient was not started on lipid lowering agents. Patient was planned to have outpatient CTA in 3 months. Operations & Procedures: Conventional angiogram Consultations: 1. PT/OT Diagnostic Tests & Neuroimaging: Date Study Results ECG CXR 10/02/11 CT Head/CTA 1. No significant interval change in left parietal intraparenchymal hemorrhage without obvious findings on the limited CTA. 2. Persistent hypodensities in the occipital lobes consistent with known history of PRES 10/03/11 MRI BRAIN 1. Superomedial left parietal hematoma with surrounding edema and mass effect. No definite underlying mass is identified. 2. Signal abnormality in the right parietal lobe consistent with the patient's history of PRES. 10/04/11 Cerebral Angiogram Prelim: No aneurysm or AV malformation. Carotid Duplex Important Lab Data: Recent Results (from the past 24 hour(s)) SEDIMENTATION RATE Component Value Range ??? Sed Rate 14 0 - 20 (mm/hr) HIGH SENSITIVITY CRP Component Value Range ??? CRP High Sens 2.7 (mg/L) RHEUMATOID FACTOR, QUANT Component Value Range ? ? RF <10 <=14 (IU/mL) BMP W/FASTING GLUCOSE Component Value Range ??? Glucose Fasting 108 (*) 65 - 99 (mg/dL) ??? BUN 15 8 - 18 (mg/dL) ??? Creatinine 0.84 0.70 - 1.20 (mg/dL) ??? Sodium 141 135 - 145 (mmol/L) ??? Potassium 4.2 3.5 - 5.0 (mmol/L) ??? Chloride 108 (*) 98 - 107 (mmol/L) ??? CO2 24 22 - 31 (mmol/L) ??? Anion Gap 9 5 - 15 (mmol/L) ??? Calcium 9.0 8.5 - 10.5 (mg/dL) ? ? Estimated GFR >60 >=60 Lab results pending at discharge: Vasculitis markers. EMIL, proteinase 3, c ANCA, urine toxicology. lamictal level. Condition at Discharge: Stable Blood pressure 100/76, pulse 57, temperature 36.5 ??C (97.7 ??F), temperature source Oral, resp. rate 8, height 167.6 cm (5' 6), weight 74.2 kg (163 lb 9.3 oz), last menstrual period 09/02/2011, SpO2 95.00%. Physical exam at discharge: Alert, oriented, no focal neurologic deficits. Patient is being discharged to: Home. Medications at Discharge: Medications prior to admission that will be resumed at discharge: Medication Sig Dispense Refill ??? metoprolol succinate (TOPROL-XL) 50 mg 24 hr tablet Take 1 tablet by mouth daily. 30 tablet 12 ??? OXYcodone (ROXICODONE) 15 mg immediate release tablet Take 15 mg by mouth every 4 hours as needed. (7x per day) ??? docusate sodium (COLACE) 100 mg capsule Take 100 mg by mouth daily as needed. ??? lamoTRIgine (LAMICTAL) 100 mg tablet Take 200 mg by mouth daily. ??? ALPRAZolam (XANAX) 1 mg tablet Take 1 mg by mouth nightly as needed. New medications prescribed at discharge: Medication Sig Dispense Refill ??? gabapentin (NEURONTIN) 300 mg capsule Take 1 capsule by mouth 3 times daily. 90 capsule 1 ??? QUEtiapine (SEROQUEL) 25 mg tablet Take 3 tablets by mouth nightly. 60 tablet 1 ??? verapamil (CALAN SR) 120 mg CR tablet Take 1 tablet by mouth nightly. 30 tablet 1 ADR/ALLERGIES: Allergies Allergen Reactions ??? Amoxicillin Unknown pt unsure ??? Sulfa (Sulfonamide Antibiotics) Other (See Comments) Edema and itching ??? Ampicillin Itching ??? Codeine Phos Itching SECONDARY STROKE PREVENTION: Preventative measure Antithrombotic agent for stroke prevention (aspirin, Plavix) was not initiated. if no, why: hemorrhagic stroke If documented history of atrial fibrillation/flutter, anticoagulation therapy (warfarin, enoxaparin, dabigatrin) was not initiated for stroke prevention. if no, why: Cholesterol-lowering medication was not prescribed if no, why: Smoking cessation: If patient smoked within the past year, smoking cessation counseling was provided, and nicotine supplements were offered. if no, why: Education: Stroke information packet provided to patient and/or family, which included personal modifiable risk factors for stroke, stroke warning signs and symptoms, how to activate EMS for stroke, and need for follow-up after discharge. if no, why: Patient Instructions: Primary Care Provider: PARK RAWLS, USER EXPERIENCE TEAM LEAD [phone] [facility] [address] / [place] [address] Call your doctor or seek medical attention if you have weakness or numbness in your face or one of your limbs or difficulty speaking sudden loss of vision loss of consciousness Diet: we recommend a heart healthy diet: low fat, low cholesterol, low concentrated sweets. Activity Restrictions: None Driving Restrictions: None Follow-up: Neurology: You will have a follow-up appointment in the neurology clinic at [facility] With Dr. Arce on Tuesday 3.30pm on Oct 29. Primary Care Provider: Please follow up with your Primary Care Provider within one to 2 weeks of discharge.. For questions regarding this document or issues relating to this hospitalization on the Neurology Service, please contact the author(s) of this discharge summary through the [facility] [employer] Superintendent . * Miscellaneous - Provider, Scanning - 10/03/2011 2:55 PM EST * Miscellaneous - Provider, Scanning - 10/03/2011 2:55 PM EST * ED Triage - Benjamin Cortes RN - 10/02/2011 9:29 PM EST PT ARRIVED FROM [facility] PT HAS DX OF INTRAPARENCHYMAL BLEED PT IS DROUSY STATES GOOD PAIN RELIEF ON ARRIVAL RESP ARE REGULAR UNLABORED SKIN IS WARM ND DRY documented in this encounter Plan of Treatment Not on file documented as of this encounter Procedures Procedure Name Priority Date/Time Associated Diagnosis Comments CUTTER HEAD SHARPENER SCAN 10/06/2011 1:03 PM EST HEPATIC FUNCTION PANEL Routine 2 11:35 AM EST BMP W/FASTING GLUCOSE Routine 10/05/2011 4:49 AM EST CYTOPLASMIC NEUTROPHILIC AB Routine 10/04/2011 4:40 PM EST PROTEINASE-3 ANTIBODY Routine 10/04/2011 4:40 PM EST MYELOPEROXIDASE AB Routine 10/04/2011 4: 40 PM EST SEDIMENTATION RATE Routine 10/04/2011 4: 40 PM EST RHEUMATOID FACTOR, QUANT Routine 10/04/2011 4:40 PM EST CRP, CARDIAC RISK (HS CRP) Routine 10/04/2011 4:40 PM EST EMIL ANTIBODY SCREEN Routine 10/04/2011 4 :40 PM EST IR ALL NEURO ANGIOGRAMS Routine 10/04/19 12 2:56 PM EST DRUG SCREEN WITH CONFIRMATION, URINE (SEND OUT) Routine 10/03/2011 9:35 AM EST THC (MARIJUANA), URINE, CONFIRMATION Routine 10/03/2011 9:35 AM EST MRI BRAIN WWO CONTRAST (GENERIC) STAT 10/03/2011 9:15 AM EST LAMOTRIGINE LVL Routine 10/03/2011 1:10 AM EST HEMOGLOBIN A1C Routine 10/03/2011 1:10 AM EST LIPID PANEL (REFLEX DIRECT LDL) Routine 10/03/2011 1:10 AM EST DIFFERENTIAL, AUTOMATED STAT 10/02/19 12 11:25 PM EST APTT STAT 10/02/2011 11:25 PM EST PROTHROMBIN TIME STAT 10/02/2011 11:2 5 PM EST CBC (WITH DIFF) STAT 10/02/2011 11:25 PM EST BASIC METABOLIC PANEL (NON-FASTING) STAT 10/02/2011 11:[address] [place] W CONTRAST STAT 10/02/2011 10:[address] HEAD WO CONTRAST (GENERIC) STAT 10/02/2011 10:30 PM EST documented in this encounter Results * SCAN DOC: CUTTER HEAD SHARPENER (10/06/2011 1:03 PM EST) Anatomical Region Laterality Modality Other Narrative 10/06/2011 5:41 PM EST Procedure Note Provider, Scanning - 10/06/2011 1:03 PM EST Scanning Provider MEDIA MGR SCAN EXT O RDR/RSLT * Hepatic Function Panel (10/05/2011 11:35 AM EST) Total Protein 7.4 6.4 - 8.3 gm/dL CERNER MILLENNIUM Albumin 4.2 3.2 - 5.2 gm/dL CERNER MILLENNIUM AST 25 0 - 30 unit/L CERNER MILLENNIUM ALT 14 0 - 30 unit/L CERNER MILLENNIUM Alk Phos 95 40 - 104 unit/L CERNER MILLENNIUM Total Bilirubin 0.2 0.2 - 1.3 mg/dL CERNER MILLENNIUM Bili, Direct 0.1 0.0 - 0.3 mg/dL CERNER MILLENNIUM Blood specimen (specimen) 10/05/2011 11:35 AM EST 10/05/2011 11:40 AM EST Quirino Moerl Jr., CHEMISTRY MAYRA JIMENEZ JANAY COOLIUM * (ABNORMAL) BMP w/fasting Glucose (10/05/2011 4:49 AM EST) [facility] Glucose Fasting 108(H) 65 - 99 mg/dL CERNER MILLENNIUM Comment: ?Fasting* Glucose Interpretive Criteria Normal ?65-99 [...] of Diabetes Mellitus, Position Statement from the [place] [employer]. ??Diabetes Care, Volume 33, Supplement 1, Sep 2009 BUN 15 8 - 18 mg/dL CERNER MILLENNIUM Creatinine 0.84 0.70 - 1.20 mg/dL CERNER MILLENNIUM Sodium 141 135 - 145 mmol/L CERNER MILLENNIUM Potassium 4.2 3.5 - 5.0 mmol/L CERNER MILLENNIUM Comment: Please note: ??Patients with WBC >100,000 may have falsely elevated Potassium levels. ??For accurate Potassium quantification in these patients send serum separator tube (gold top) for subsequent determinations. ??Contact the Clinical Chemistry Laboratory if there are any questions. Chloride 108(H) 98 - 107 mmol/L CERNER MILLENNIUM CO2 24 22 - 31 mmol/L CERNER MILLENNIUM Anion Gap 9 5 - 15 mmol/L CERNER MILLENNIUM Calcium 9.0 8.5 - 10.5 mg/dL CERNER MILLENNIUM Estimated GFR >60 >=60 CERNER MILLENNIUM Comment: The National Kidney Disease Education Program (NKDEP) has recommended all laboratories report estimated GFR (eGFR) along with plasma creatinine measurements to assist you with recognition of early kidney disease. Caveats: ??Plasma creatinine should be at steady-state (unchanged within the past week). For patients multiply eGFR by 1.2. The MDRD equation has not been validated for pediatric [...] disease. References: http://nkdep.nih.gov/resources/NKDEP_Suggestn4Labs_0606_508.pdf http://www.kidney.org/professionals/kls/pdf/faq_gfr.pdf Blood specimen (specimen) 10/05/2011 4:49 AM EST 10/05/2011 5:12 AM EST DO CHANDRA Esquivel Jr. JANAY PANDYA * Proteinase-3 Antibody (10/04/2011 4:40 PM EST) PR3 Ab 2.7 <=20.0 unit(s) JANAY PANDYA Comment: As of 10 the ANCA PR3 assay is being performed using reagents from a new manager field. A patient correlation study showed excellent concordance between methods up to 100 units. However, the reference range will change from the previous of <=3.5 U/mL to <=20 units is negative, 21-30 units is weak positive and >30 units is moderate to strong positive. MI-3 results were obtained with the [employer] QUANTA Lite MI-3 IgG MARVIN. MI-3 values obtained with different manufacturers'assay ??methods may not be used interchangeably. The magnitude of the reported IgG levels cannot be correlated to an endpoint titer. Please contact Linda Wren, [facility] Reference Network Design Architect, at [phone] ext. [phone] with any questions or concerns. Blood specimen (specimen) 10/04/2011 4:40 PM EST 10/05/2011 8:17 AM EST Quirino Morel Jr. [employer] MAYRA CROWDERENA Performing Organization Address [facility] [[email or web address]] de Phone Number JANAY COOLFORMERLY [facility] * Myeloperoxidase Ab (10/04/2011 4:40 PM EST) MPO Ab 2.6 <=20.0 unit(s) [facility] Comment: As of 09 the ANCA MPO assay will be performed using reagents from a new manager field. A patient correlation study showed excellent concordance between methods up to 60 units. However, the reference range will change from the previous of <=9.0 U/mL to <=20 units is negative, 21-30 units is weak positive and >30 units is moderate to strong positive. MPO results were obtained with the [employer] QUANTA Lite MPO IgG MARVIN. MPO values obtained with different manufacturers' assay methods may not be used interchangeably. The magnitude of the reported IgG levels cannot be correlated to an endpoint titer. Please contact Linda Wren [facility] Reference Network Design Architect, at [phone] ext. [phone] with any questions or concerns. Blood specimen (specimen) 10/04/2011 4:40 PM EST 10/05/2011 8:17 AM EST Quirino Morel Jr., DO [employer] MAYRA CROWDERENA Performing Organization Address [facility] [[email or web address]] de Phone Number JANAY PANDYA * Cytoplasmic Neutrophilic Ab (10/04/2011 4:40 PM EST) C-ANCA Negative Negative [facility] Comment: Test Performed by: [facility] Dpt of Lab Med and Pathology [address] [place] [id number] [employer] Bonder: Andrzej Montenegro III, M.D. P-ANCA Negative Negative [facility] Comment: Negative for cANCA and pANCA patterns by immunofluorescence. Test Performed by: [facility] Dpt of Lab Med and Pathology [address] [place] [id number] [employer]onder: Andrzej Montenegro III, M.D. Blood specimen (specimen) 10/04/2011 4:40 PM EST 10/05/2011 8:41 AM EST Quirino Morel Jr., DO CHEMISTRY ORDE BARBARA Performing Organization Address [facility] Phone Number [facility] * EMIL (10/04/2011 4:40 PM EST) Pathologist [facility] EMIL Neg Neg [facility] Blood specimen (specimen) 10/04/2011 4:40 PM EST 10/05/2011 8:21 AM EST Quirino Morel Jr., DO IMMUNOLOGY ORD ERABLES Performing Organization Address [facility] Phone Number [facility] * Rheumatoid factor, quant (10/04/2011 4:40 PM EST) Pathologist [facility] RF <10 <=14 IU/mL [facility] Blood specimen (specimen) 10/04/2011 4:40 PM EST 10/04/2011 4:54 PM EST Quirino Morel Jr., DO IMMUNOLOGY ORD ERABLES Performing Organization Address [facility] Phone Number [facility] * High Sensitivity CRP (10/04/2011 4:40 PM EST) Pathologist [facility] CRP High Sens 2.7 mg/L [facility] Comment: Interpretations: 1) For cardiac risk assessment, two values (fasting or nonfasting sample acceptable) taken at least 2 weeks apart, should be averaged to provide a more reliable estimate of marker level. ??This laboratory uses the recommendations from the AHA/CDC Scientific Statement for interpretations of future risks of cardiovascular events: ? <1.0 mg/L: low risk 1.0 - 3.0 mg/L: moderate risk >3.0 mg/L: high risk groups for future cardiovascular events 2) The general reference range of apparently healthy individuals using this test is <5.0 mg/L (derived from the test package insert) A few words of caution: For cardiac assessment, when a value >10 mg/L is encountered, there should be a search for an acute inflammatory condition or infection (in patients with acute inflammation, the concentration can increase to >500 mg/L). ??The >10 mg/L should be discarded if such a situation exists, since the risk for coronary heart disease cannot be provided, and a repeat specimen, taken at least two weeks after resolution of the acute inflammatory condition, may allow for appraisal of coronary risk information. Please note that significantly decreased CRP values may be obtained from samples taken from patients who have been treated with carboxypenicillins. References: 1. Bart NAM et. al. ??AHA/CDC Scientific Statement: Markers of Inflammation and Cardiovascular Disease. ??Circulation 2003; 107:499-511 2. Ridker PM. ??Clinical applications of C-reactive protein for cardiovascular disease detection and prevention. ??Circulation 2003; 107:363-369 Blood specimen (specimen) 10/04/2011 4:40 PM EST 10/04/2011 4:54 PM EST Quirino Morel Jr., DO CHEMISTRY ORDE RABENA Performing Organization Address [facility] Phone Number [employer] * Sedimentation rate (10/04/2011 4:40 PM EST) Sed Rate 14 0 - 20 mm/hr [facility] [employer] Blood specimen (specimen) 10/04/2011 4:40 PM EST 10/04/2011 4:54 PM EST Quirino Morel Jr., DO HEMATOLOGY ORD ERABLES Performing Organization Address [facility] Co de Phone Number [employer] * IR all neuro angiograms (10/04/2011 2:56 PM EST) Anatomical Region Laterality Modality Vascular X-Ray Angiograph y 10/04/2011 2:56 PM EST Impressions 10/16/2011 6:49 AM EST IMPRESSION: ?? 1. Small areas of distal arterial narrowing in the parietal and occipital lobes. No other arterial or venous abnormality. 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 ?? I, Ndair Mullen, was present for the entire procedure. ? Film and interpretation reviewed by the attending Narrative 10/16/2011 6:49 AM EST CEREBRAL ANGIOGRAM: ?? HISTORY: Left parietal hemorrhage ?? PROCEDURE: ?? Cerebral angiogram. ?? OPERATORS: Dr. Nadir Mullen, Dr. Pablito Bunch. ?? ANESTHESIA: Moderate sedation with intravenous Versed and fentanyl. ?? EBL: Less than 50 mL. ?? CONTRAST: 40 mL Visipaque. ?? RADIATION EXPOSURE: 730.9 mGy A plane, 324.7 mGy B plane. ?? MATERIALS: Micropuncture set, 0.035 inch 3J-wire, 0.035 inch Glidewire, ?? 5Fr Richfield sheath, 5Fr Justin catheter. ?? DESCRIPTION: The procedure and its risks were discussed with the patient and ?? written informed consent was obtained. She was brought to the angiography suite and placed supine. Her right groin was sterilely prepped and draped. ?? The right femoral artery was accessed using a micropuncture set and the 5-Fr femoral sheath placed and flushed. The 5-Fr Justin catheter was placed in the descending aorta over the 3J-wire, flushed, and connected to a continuous heparinized saline infusion. This catheter was sequentially directed to the right common carotid, right internal carotid, left common carotid, left internal carotid, left external carotid and left vertebral arteries. From each position, biplane cerebral angiography was performed. The catheter was removed.The patient tolerated the procedure well and there were no immediate complications. ?? FINDINGS: ?? RIGHT COMMON CAROTID ROADMAP: The right carotid bifurcation is of normal course and caliber. ?? RIGHT INTERNAL CAROTID ARTERY: There is mild irregularity and subtle distal arterial pruning in the distal inferior parietal and occipital branches. The internal carotid artery and its major branches are of normal course and caliber. ?? LEFT COMMON CAROTID ARTERY ROADMAP: The left carotid bifurcation is of ?? normal course and caliber. ?? LEFT INTERNAL CAROTID ARTERY: The internal carotid artery and its major branches are of normal course and caliber. There is mild irregularity and subtle distal arterial pruning in the distal inferior parietal branches. The internal carotid artery and its major branches are of normal course and caliber. ?? LEFT EXTERNAL CAROTID ARTERY: The left externall carotid artery and its ?? major branches are of normal course and caliber. ?? LEFT VERTEBRAL ARTERY INJECTION: The left vertebral, basilar and posterior cerebral arteries are normal. ?? Procedure Note Nadir Mullen MD - 11/16/2011 CEREBRAL ANGIOGRAM: HISTORY: Left parietal hemorrhage PROCEDURE: Cerebral angiogram. OPERATORS: Dr. Nadir Mullen, Dr. Pablito Bunch. ANESTHESIA: Moderate sedation with intravenous Versed and fentanyl. EBL: Less than 50 mL. CONTRAST: 40 mL Visipaque. RADIATION EXPOSURE: 730.9 mGy A plane, 324.7 mGy B plane. MATERIALS: Micropuncture set, 0.035 inch 3J-wire, 0.035 inch Glidewire, 5Fr Richfield sheath, 5Fr Justin catheter. DESCRIPTION: The procedure and its risks were discussed with the patientand written informed consent was obtained. She was brought to the angiographysuite and placed supine. Her right groin was sterilely prepped and draped. The right femoral artery was accessed using a micropuncture set and the5-Fr femoral sheath placed and flushed. The 5-Fr Justin catheter was placed inthe descending aorta over the 3J-wire, flushed, and connected to a continuous heparinized saline infusion. This catheter was sequentially directed tothe right common carotid, right internal carotid, left common carotid, left internal carotid, left external carotid and left vertebral arteries. Fromeach position, biplane cerebral angiography was performed. The catheter was removed.The patient tolerated the procedure well and there were noimmediate complications. FINDINGS: RIGHT COMMON CAROTID ROADMAP: The right carotid bifurcation is of normalcourse and caliber. RIGHT INTERNAL CAROTID ARTERY: There is mild irregularity and subtledistal arterial pruning in the distal inferior parietal and occipital branches.The internal carotid artery and its major branches are of normal course and caliber. LEFT COMMON CAROTID ARTERY ROADMAP: The left carotid bifurcation is of normal course and caliber. LEFT INTERNAL CAROTID ARTERY: The internal carotid artery and its major branches are of normal course and caliber. There is mild irregularity and subtle distal arterial pruning in the distal inferior parietal branches.The internal carotid artery and its major branches are of normal course and caliber. LEFT EXTERNAL CAROTID ARTERY: The left externall carotid artery and its major branches are of normal course and caliber. LEFT VERTEBRAL ARTERY INJECTION: The left vertebral, basilar and posterior cerebral arteries are normal. IMPRESSION IMPRESSION: 1. Small areas of distal arterial narrowing in the parietal and occipital lobes. No other arterial or venous abnormality. The appearance isconsistent with sequella of PRES. I, Nadir Mullen, was present for the entire procedure. Film and interpretation reviewed by the attending Quirino Morel Jr., DO G IR ORDERAB LES * THC (MARIJUANA), URINE, CONFIRMATION (10/03/2011 9:35 AM EST) U THC Conf ? HI ? Expected Test ? Result ?LO ??Units ??Values Drug of Abuse, THC Conf, U ??GC/MS Confirmation - ? Positive ?THC ??THC Carboxylic Acid ?412 ? ng/mL ??Cutoff:<3 This report is intended for use in clinical monitoring and management of patients. It is not intended for use in employment-relat ed drug testing. Test Performed by: [facility] [employer] [address] [address] [employer]: Loraine Dawn, Ph.D. JANAY PANDYA Urine specimen (specimen) 10/03/2011 9:35 AM EST 10/04/2011 10:50 AM EST Eloy Uribe MD URINE ORDERABLES JANAY PANDYA * Drug Screen with Confirmation, Urine (10/03/2011 9:35 AM EST) U ROSA w/Conf ? HI ? Expected Test ? Result ?LO ??Units ??Values --------- [facility] Drug Screen, U ??Amphetamines ? Negative ?ng/mL ??Cutoff: 1000 ??MDMA (Ecstasy) ? Negative ?ng/mL ??Cutoff: 500 ??Barbiturates ? Negative ?ng/mL ??Cutoff: 200 ??Benzodiazepines ?Negative ?ng/mL ??Cutoff: 200 ??Cocaine Metabolite ? Negative ?ng/mL ??Cutoff: 300 ??Methadone ?Negative ?ng/mL ??Cutoff: 300 ??Opiates ?Positive ?ng/mL ??Cutoff: 300 ??Phencyclidine ?Negative ?ng/mL ??Cutoff: 25 ??Propoxyphene ? Negative ?ng/mL ??Cutoff: 300 ??Tetrahydrocanna binols ?Positive ?ng/mL ??Cutoff: 50 ??Ethanol ?Negative ?mg/dL ??Cutoff: 10 Results from this test are presumptive; for positive results refer to the corresponding drug confirmation for the definitive result. This report is intended for use in clinical monitoring and management of patients. It is not intended for use in employment-relate d drug testing. ??Confirmation - Opiates ?? Positive ??Codeine ?Negative ?ng/mL ??<100 ??Hydrocodone ?Negative ?ng/mL ??<100 ??Hydromorphone ?Negative ?ng/mL ??<100 ??Morphine ? 3559 ?ng/mL ??<100 If heroin use suspected, test 40493, 8-qgwe-hzwvxk-mor phine(6-FELIZ) heroin metabolite, can be added at an additional charge. ??Oxycodone ?1900 ?ng/mL ??<100 ??Oxymorphone ?1629 ?ng/mL ??<100 This report is intended for use in clinical monitoring and management of patients. It is not intended for use in employment-relate d drug testing. Test Performed by: [place] [address] [employer]: Loraine Dawn, Ph.D. JANAY PANDYA Urine specimen (specimen) 10/03/2011 9:35 AM EST 10/04/2011 10:50 AM EST Eloy Uribe MD URINE ORDERABLES JANAY CERVANTESCASEY * MRI brain with/WO contrast (10/03/2011 9:15 AM EST) Anatomical Region Laterality Modality Head Magnetic Resonan ce 10/03/2011 9:15 AM EST Impressions 10/04/2011 2:37 PM EST IMPRESSION: ? 1. ??Superomedial left parietal hematoma with surrounding edema and mass effect. ?? No definite underlying mass is identified. 2. ??Signal abnormality in the right parietal lobe consistent with the patient's history of PRES. Narrative 10/04/2011 2:37 PM EST MRI OF THE BRAIN WITH AND WITHOUT CONTRAST: ?? HISTORY: ?? Acute left intracranial hemorrhage. TECHNIQUE: ??MRI of the brain performed prior to and following intravenous administration of 15 mL Magnevist. CONTRAST: ??15 mL of Magnevist. COMPARISON: ??MR 02/15/11, CT 10/02/11. FINDINGS: ??As was present on the recent CT, a 3.6 cm superomedial left parietal lobe hematoma is present. ??There is surrounding edema and mass effect related to the hemorrhage. ??An area of signal abnormality is present in the right occipital lobe on FLAIR and T2-weighted images, similar to the previous examination. ??No area of acute restricted diffusion is present to suggest infarct. ??No other areas of intracranial hemorrhage are identified. ??Normal flow void is present in the dural venous sinuses. ??Postcontrast images demonstrate mild enhancement of the venous structures adjacent to the hematoma with some enhancement in the central sulcus just anterior to the hematoma, which may be related to venous congestion. No enhancing mass is identified. There may be mild enhancement at the inferior and anterior margin of the hematoma. Procedure Note Corby Angeles MD - 10/04/2011 MRI OF THE BRAIN WITH AND WITHOUT CONTRAST: HISTORY: Acute left intracranial hemorrhage. TECHNIQUE: MRI of the brain performed prior to and following intravenous administration of 15 mL Magnevist. CONTRAST: 15 mL of Magnevist. COMPARISON: MR 02/15/11, CT 10/02/11. FINDINGS: As was present on the recent CT, a 3.6 cm superomedial leftparietal lobe hematoma is present. There is surrounding edema and mass effectrelated to the hemorrhage. An area of signal abnormality is present in the right occipital lobe on FLAIR and T2-weighted images, similar to the previous examination. No area of acute restricted diffusion is present to suggest infarct. No other areas of intracranial hemorrhage are identified.Normal flow void is present in the dural venous sinuses. Postcontrast images demonstrate mild enhancement of the venous structures adjacent to thehematoma with some enhancement in the central sulcus just anterior to the hematoma, which may be related to venous congestion. No enhancing mass isidentified. There may be mild enhancement at the inferior and anterior margin of the hematoma. IMPRESSION IMPRESSION: 1. Superomedial left parietal hematoma with surrounding edema and masseffect. No definite underlying mass is identified. 2. Signal abnormality in the right parietal lobe consistent with thepatient's history of PRES. Eloy Uribe MD [facility] MRI ORDERABL ES * Hemoglobin A1c (10/03/2011 1:10 AM EST) Hemoglobin A1C 5.5 4.3 - 6.1 % CERNER MILLENNFORMERLY [facility] Est Avg Gluc 111 mg/dL [facility] Comment: eAG equivalents for HbA1c percentages: HbA1c(%) ?eAG(mg/dL) 6.0 ?126 6.5 ?140 7.0 ?154 7.5 ?169 8.0 ?183 8.5 ?197 9.0 ?212 9.5 ?226 10.0 ? 240 Limitations: The eAG calculation has not been validated on women, individuals below 18 years old and above 70 years old, and individuals with hemoglobinopathies. Additional resources are available on the ADA website: ??http://professional.diabetes.org/glucosecalculator.aspx Reference: Alcides PAREDES, An J, Jackelin R, et al. ??Translating the A1C assay into estimated average glucose values. ??Diabetes Care 2008:31(8):2169-8718. Blood specimen (specimen) 10/03/2011 1:10 AM EST 10/03/2011 1:20 AM EST Eloy Uribe MD CHEMISTRY SHANDRA VAZQUEZ [facility] * (ABNORMAL) Lipid panel (fasting) (10/03/2011 1:10 AM EST) Chol, Total 187 <=199 mg/dL [facility] Comment: Recommendations of the NCEP Adult Treatment Panel for the following risk cutoff thresholds for the [place] population: Desirable: <200 mg/dL Borderline High: 200-239 mg/dL High: > or = 240 mg/dL Triglycerides 159(H) <=149 mg/dL [facility] Comment: Reference Range: Normal triglycerides: ??<150 mg/dL Borderline high: ??150-199 mg/dL High: ??200-499 mg/dL Very high: ??>mw=113 mg/dL LINDA 2001; 285(19):0316-3014 HDL 30(L) >=40 mg/dL [facility] Comment: Reference range: ??Low HDL: ?? < 40 mg/dL ??Normal: ?40-60 mg/dL ??Desirable: > 60 mg/dL LINDA 2001; 285(19):1479-5440 LDL Cholesterol 125(H) <=99 mg/dL [facility] Comment: Reference range: ?? Optimal: ?<100 mg/dL ?? Near Optimal/Above Optimal: ?? 100-129 mg/dL ?? Borderline high: ?130-159 mg/dL ?? High: ? 160-189 mg/dL ?? Very high: ?>wz=223 mg/dL LINDA 2001: 285(19):6511-7993 Chol/HDL Ratio 6.2 ratio DAILY COOLIUM Comment: A Cholesterol to HDL ratio below 4:1 is desirable. ??Studies suggest that increased CAD risk occurs at ratios above 5 for females and above 6 for men. ? [place] Heart Association ??(http://www.americanheart.org) ? Alyson Int Med, 1994; 121:641 ? AM J Med, 1998; 105(1A):48S Blood specimen (specimen) 10/03/2011 1:10 AM EST 10/03/2011 1:20 AM EST Eloy Uribe MD CHEMISTRY ORDERMolly VAZQUEZ Performing Organization Address [facility] [[email or web address]] de Phone Number JANAY COOLIUM * Lamotrigine Lvl-[place] (10/03/2011 1:10 AM EST) Lamotrigine Lvl 1.2 2.5 - 15.0 mcg/mL CERLUIZA CERVANTESENNIUM Comment: Test Performed by: [facility] Dpt of Lab Med and Pathology [address] [place] [address] [employer]: Andrzej Montenegro III, M.D. Blood specimen (specimen) 10/03/2011 1:10 AM EST 10/04/2011 10:47 AM EST Eloy Uribe MD CHEMISTRY ORDERA BLEMatthew Performing Organization Address City/[facility] Co de Phone Number JANAY COOLIUM * (ABNORMAL) DIFFERENTIAL, AUTOMATED (10/02/2011 11:25 PM EST) Neutrophils % 45.4 34.0 - 71.0 % CERNER MILLENNIUM Neutr Abs (ANC) 4.42 1.50 - 6.30 x10(3)/mc L CERNER MILLENNIUM Lymphocytes % 45.4 19.0 - 53.0 % CERNER MILLENNIUM Lymphocytes Abs 4.4(H) 1.0 - 3.6 x10(3)/mc L CERNER MILLENNIUM Monocytes % 5.7 4.0 - 13.0 % CERNER MILLENNIUM Monocyte Abs 0.6 0.2 - 1.0 x10(3)/mc L CERNER MILLENNIUM Eosinophils % 2.6 0.0 - 7.0 % CERNER MILLENNIUM Eosinophils Abs 0.2 0.0 - 0.5 x10(3)/mc L CERNER MILLENNIUM Basophils % 0.8 0.0 - 2.0 % CERNER MILLENNIUM Basophils Abs 0.1 0.0 - 0.2 x10(3)/mc L CERNER MILLENNIUM Immature Gran % 0.10 0.00 - 0.66 % CERNER MILLENNIUM Comment: Immature granulocytes(IG's)percentage and absolute count will include metamyelocytes, myelocytes, and promyelocytes. Blood smears from CBCs yielding IG's will be scanned manually for concordance. If this scan disagrees with the automated IG or if promyelocytes are noted, a manual differential will be performed. Patsy Gran Abs 0.01 0.00 - 0.05 x10(3)/mc L CERNER MILLENNIUM Blood specimen (specimen) 10/02/2011 11:25 PM EST 10/02/2011 11:31 PM EST Ivan Ohara Jr., MD HEMATOLOGY ORDERAB LES Performing Organization Address [facility] [[email or web address]] de Phone Number [facility] * APTT (10/02/2011 11:25 PM EST) PTT 30 25 - 35 sec [facility] Comment: Recommended therapeutic PTT range for full dose unfractionated heparin is 80-114 seconds. Blood specimen (specimen) 10/02/2011 11:25 PM EST 10/02/2011 11:31 PM EST Ivan Ohara Jr., MD HEMATOLOGY ORDERAB LES Performing Organization Address City/State/[facility] Co de Phone Number [facility] * Prothrombin Time (10/02/2011 11:25 PM EST) PT 13.2 12.3 - 14.7 sec CERNER MILLENNIUM Comment: [facility] Transfusion Committee Guidelines: INR less than 2.0, PTT less than OR equal to 43.5 seconds, or Fibrinogen greater than or equal to 100 mg/dl indicate adequate procoagulant activity for hemostasis in patients without underlying bleeding disorders. INR 1.0 0.9 - 1.1 CERNER MILLENNIUM Blood specimen (specimen) 10/02/2011 11:25 PM EST 10/02/2011 11:31 PM EST Ivan Ohara Jr., MD HEMATOLOGY ORDERAB LES CERNER MILLENNIUM * Basic Metabolic Panel (non-fasting) (10/02/2011 11:25 PM EST) Glucose Lvl 89 60 - 199 mg/dL CERNER MILLENNIUM Comment:Diabetes: >=200 mg/d L plus symptoms BUN 12 8 - 18 mg/dL CERNER MILLENNIUM Creatinine 0.92 0.70 - 1.20 mg/dL CERNER MILLENNIUM Sodium 139 135 - 145 mmol/L CERNER MILLENNIUM Potassium 4.3 3.5 - 5.0 mmol/L CERNER MILLENNIUM Comment: Please note: ??Patients with WBC >100,000 may have falsely elevated Potassium levels. ??For accurate Potassium quantification in these patients send serum separator tube (gold top) for subsequent determinations. ??Contact the Clinical Chemistry Laboratory if there are any questions. Chloride 104 98 - 107 mmol/L CERNER MILLENNIUM CO2 29 22 - 31 mmol/L CERNER MILLENNIUM Anion Gap 6 5 - 15 mmol/L CERNER MILLENNIUM Calcium 8.6 8.5 - 10.5 mg/dL CERNER MILLENNIUM Estimated GFR >60 >=60 CERNER MILLENNIUM Comment: The National Kidney Disease Education Program (NKDEP) has recommended all laboratories report estimated GFR (eGFR) along with plasma creatinine measurements to assist you with recognition of early kidney disease. Caveats: ??Plasma creatinine should be at steady-state (unchanged within the past week). For patients multiply eGFR by 1.2. The MDRD equation has not been validated for pediatric [...] disease. References: http://nkdep.nih.gov/resources/NKDEP_Suggestn4Labs_0606_508.pdf http://www.kidney.org/professionals/kls/pdf/faq_gfr.pdf Blood specimen (specimen) 10/02/2011 11:25 PM EST 10/02/2011 11:31 PM EST Ivan Ohara Jr., MD CHEMISTRY ORDERABL ES CERNER MILLENNIUM * CBC (with Diff) (10/02/2011 11:25 PM EST) WBC 9.8 4.0 - 10.0 x10(3)/mcL CERNER MILLENNIUM RBC 4.02 3.93 - 5.22 x10(6)/mcL CERNER MILLENNIUM Hemoglobin 12.4 11.2 - 15.7 gm/dL CERNER MILLENNIUM Hematocrit 36.5 34.0 - 45.0 % CERNER MILLENNIUM MCV 90.8 79.0 - 94.0 fL CERNER MILLENNIUM MCH 30.8 26.6 - 32.2 pg CERNER MILLENNIUM MCHC 34.0 32.0 - 36.5 gm/dL CERNER MILLENNIUM Platelets 285 145 - 370 x10(3)/mcL CERNER MILLENNIUM RDWSD 41.7 35.0 - 46.0 fL CERNER MILLENNIUM RDWCV 12.5 10.9 - 14.4 % CERNER MILLENNIUM MPV 10.0 9.0 - 12.0 fL JANAY PANDYA Blood specimen (specimen) 10/02/2011 11:25 PM EST 10/02/2011 11:31 PM EST Ivan Ohara Jr., MD HEMATOLOGY ORDERAB LES JANAY PANDYA * CT [place] with contrast (10/02/2011 10:30 PM EST) Anatomical Region Laterality Modality Neck, Head Computed Tomogra phy 10/02/2011 10:3 0 PM EST Impressions 10/04/2011 2:37 PM EST IMPRESSION: ?? 1. ??No significant interval change in left parietal intraparenchymal hemorrhage without obvious findings on the limited CTA. 2. ??Persistent hypodensities in the occipital lobes consistent with known history of PRES. ?? Film and interpretation reviewed by the attending Narrative 10/04/2011 2:[address] HEAD WITHOUT CONTRAST AND CT [place] WITH CONTRAST: INDICATION: ??Left parietal intraparenchymal hemorrhage in a patient with known PRES. COMPARISON: ??CT head, 10/02/11 at 1550 hours and MR brain, 02/15/11. TECHNIQUE: ??CT imaging of the head performed without contrast. ??Subsequently, CT angiogram of the [place] was performed during the intravenous administration of 65 cc of Omnipaque-350. ??3D reformats performed. on a [employer] workstation. ??Please note that the study is somewhat limited due to patient motion. FINDINGS: ?? HEAD CT: ??Not significantly changed from the outside CT of the head is a left parietal intraparenchymal hemorrhage with surrounding edema and local mass effect. ??No abnormal extraaxial fluid collections. ??Note is made of bilateral hypodensities in the occipital lobes consistent with the patient's known history of PRES. ??The ventricles are normal in size. ??The basal cisterns are patent. ??No calvarial fractures. CT [place]: ??Markedly limited study secondary to patient motion. ??No feeding artery is identified in the region of interest in the left parietal lobe. ??No aneurysm or other vascular malformation identified. Procedure Note Corby Angeles MD - 10/04/2011 CT HEAD WITHOUT CONTRAST AND CT [place] WITH CONTRAST: INDICATION: Left parietal intraparenchymal hemorrhage in a patient withknown PRES. COMPARISON: CT head, 10/02/11 at 1550 hours and MR brain, 02/15/11. TECHNIQUE: CT imaging of the head performed without contrast.Subsequently, CT angiogram of the [place] was performed during the intravenous administration of 65 cc of Omnipaque-350. 3D reformats performed. on a [employer] workstation. Please note that the study is somewhat limited dueto patient motion. FINDINGS: HEAD CT: Not significantly changed from the outside CT of the head is aleft parietal intraparenchymal hemorrhage with surrounding edema and local mass effect. No abnormal extraaxial fluid collections. Note is made ofbilateral hypodensities in the occipital lobes consistent with the patient's known history of PRES. The ventricles are normal in size. The basal cisternsare patent. No calvarial fractures. CT [place]: Markedly limited study secondary to patient motion.No feeding artery is identified in the region of interest in the leftparietal lobe. No aneurysm or other vascular malformation identified. IMPRESSION IMPRESSION: 1. No significant interval change in left parietal intraparenchymalhemorrhage without obvious findings on the limited CTA. 2. Persistent hypodensities in the occipital lobes consistent with known history of PRES. Film and interpretation reviewed by the attending Ivan Ohara Jr., MD [facility] [place] CT ORDERABLES * CT head WO contrast (10/02/2011 10:30 PM EST) Anatomical Region Laterality Modality Head Computed Tomogra phy 10/02/2011 10:3 0 PM EST Impressions 10/04/2011 2:37 PM EST IMPRESSION: ?? 1. ??No significant interval change in left parietal intraparenchymal hemorrhage without obvious findings on the limited CTA. 2. ??Persistent hypodensities in the occipital lobes consistent with known history of PRES. ?? Film and interpretation reviewed by the attending Narrative 10/04/2011 2:[address] HEAD WITHOUT CONTRAST AND CT [place] WITH CONTRAST: INDICATION: ??Left parietal intraparenchymal hemorrhage in a patient with known PRES. COMPARISON: ??CT head, 10/02/11 at 1550 hours and MR brain, 02/15/11. TECHNIQUE: ??CT imaging of the head performed without contrast. ??Subsequently, CT angiogram of the [place] was performed during the intravenous administration of 65 cc of Omnipaque-350. ??3D reformats performed. on a [employer] workstation. ??Please note that the study is somewhat limited due to patient motion. FINDINGS: ?? HEAD CT: ??Not significantly changed from the outside CT of the head is a left parietal intraparenchymal hemorrhage with surrounding edema and local mass effect. ??No abnormal extraaxial fluid collections. ??Note is made of bilateral hypodensities in the occipital lobes consistent with the patient's known history of PRES. ??The ventricles are normal in size. ??The basal cisterns are patent. ??No calvarial fractures. CT [place]: ??Markedly limited study secondary to patient motion. ??No feeding artery is identified in the region of interest in the left parietal lobe. ??No aneurysm or other vascular malformation identified. Procedure Note Corby Angeles MD - 10/04/2011 CT HEAD WITHOUT CONTRAST AND CT [place] WITH CONTRAST: INDICATION: Left parietal intraparenchymal hemorrhage in a patient withknown PRES. COMPARISON: CT head, 10/02/11 at 1550 hours and MR brain, 02/15/11. TECHNIQUE: CT imaging of the head performed without contrast.Subsequently, CT angiogram of the [place] was performed during the intravenous administration of 65 cc of Omnipaque-350. 3D reformats performed. on a [employer] workstation. Please note that the study is somewhat limited dueto patient motion. FINDINGS: HEAD CT: Not significantly changed from the outside CT of the head is aleft parietal intraparenchymal hemorrhage with surrounding edema and local mass effect. No abnormal extraaxial fluid collections. Note is made ofbilateral hypodensities in the occipital lobes consistent with the patient's known history of PRES. The ventricles are normal in size. The basal cisternsare patent. No calvarial fractures. CT [place]: Markedly limited study secondary to patient motion.No feeding artery is identified in the region of interest in the leftparietal lobe. No aneurysm or other vascular malformation identified. IMPRESSION IMPRESSION: 1. No significant interval change in left parietal intraparenchymalhemorrhage without obvious findings on the limited CTA. 2. Persistent hypodensities in the occipital lobes consistent with known history of PRES. Film and interpretation reviewed by the attending Ivan Ohara Jr., MD IMG CT ORDERABLES documented in this encounter Visit Diagnoses Diagnosis ICH (intracerebral hemorrhage) Intracerebral hemorrhage documented in this encounter Administered Medications Inactive Administered Medications - up to 3 most recent administrations Medication Order MAR Action Action Date Dose Rate Site acetaminophen (TYLENOL) tablet 650 mg 650 mg, Oral, EVERY 4 HOURS PRN, Starting on Tue10/03/11 at 0102, Until Tue10/05/11 at 1515, Pain, Maximum dose of acetaminophen is 4000 mg from all sources in 24 hours., Routine Given 10/04/2011 11:52 AM EST 650 mg Given 10/04/2011 8:20 AM EST 650 mg Given 10/03/2011 9:16 PM EST 650 mg chlorhexidine (PERIDEX) 0.12 % oral solution 15 mL 15 mL, Oral, EVERY 12 HOURS SCHEDULED (2 times per day), First dose on Tue10/03/11 at 0900, Until Discontinued, [place] teeth every 12 hours, Routine Given 10/04/2011 9:00 AM EST 15 mLs Given 10/03/2011 9:00 PM EST 15 mLs Given 10/03/2011 9:00 AM EST 15 mLs docusate sodium (COLACE) capsule 100 mg 100 mg, Oral, 2 TIMES DAILY, First dose on Tue10/03/11 at 0900, Until Discontinued, Routine Given 10/05/2011 9:00 AM EST 100 mg Given 10/04/2011 8:09 PM EST 100 mg Given 10/04/2011 9:00 AM EST 100 mg famotidine (PEPCID) tablet 20 mg 20 mg, Oral, 2 TIMES DAILY, First dose on Tue10/03/11 at 0115, Until Discontinued, Routine Given 10/05/2011 9:00 AM EST 20 mg Given 10/04/2011 8:09 PM EST 20 mg Given 10/04/2011 9:00 AM EST 20 mg fentaNYL 50mcg/mL injection 25-50 mcg, Intravenous, EVERY 5 MIN PRN, Starting on 10/04/11 at 1247, Until 10/04/11 at 1533, Pain, per protocol, Angio/IR (Intra-Procedure), Routine Given 10/04/2011 3:30 PM EST 275 mcg gabapentin (NEURONTIN) capsule 300 mg 300 mg, Oral, 3 TIMES DAILY, First dose on 10/04/11 at 1100, Until Discontinued, Routine Given 10/05/2011 9:00 AM EST 300 mg Given 10/04/2011 8:09 PM EST 300 mg Given 10/04/2011 11:31 AM EST 300 mg gadopentetate dimeglumine (MAGNEVIST) 10 mmol/20 mL (469.01 mg/mL) injection 14.88 mL 14.88 mL (0.2 mL/kg/dose ? 74.4 kg), Intravenous, ONCE PRN, 1 dose, Starting on 10/03/11 at 0920, Until 10/03/11 at 0905, Per Protocol, Routine Given 10/03/2011 9:05 AM EST 16 mLs iohexol (OMNIPAQUE) 350 mg/mL injection 22,750 mg 22,750 mg (65 mL), Intravenous, ONCE PRN, 1 dose, Starting on 10/02/11 at 2238, Until 10/02/11 at 2219, Per Protocol, Routine Given 10/02/2011 10:19 PM EST 22,750 mg lamoTRIgine (LAMICTAL) tablet 100 mg 100 mg, Oral, 2 TIMES DAILY, First dose (after last modification) on 10/03/11 at 2100, Until Discontinued, Routine Given 10/05/2011 9:00 AM EST 100 mg Given 10/04/2011 8:09 PM EST 100 mg Given 10/04/2011 9:00 AM EST 100 mg lamoTRIgine (LAMICTAL) tablet 200 mg 200 mg, Oral, DAILY, First dose on 10/03/11 at 0900, Until Discontinued, Routine Given 10/03/2011 9:00 AM EST 200 mg metoprolol succinate (TOPROL-XL) XL tablet 50 mg 50 mg, Oral, DAILY, First dose on 10/03/11 at 0900, Until Discontinued, Routine Given 10/05/2011 9:00 AM EST 50 mg Given 10/04/2011 9:00 AM EST 50 mg Given 10/03/2011 9:00 AM EST 50 mg midazolam (VERSED) injection 1-2 mg 1-2 mg, Intravenous, EVERY 5 MIN PRN, Starting on Tue10/04/11 at 1247, Until Tue10/04/11 at 1533, Sleep, per protocol, Angio/IR (Intra-Procedure), Routine Given 10/04/2011 3:31 PM EST 3.5 mg OXYcodone (ROXICODONE) immediate release tablet 15 mg 15 mg, Oral, EVERY 4 HOURS PRN, Starting on Tue10/03/11 at 0233, Until Tue10/05/11 at 1515, Pain, Routine Given 10/05/2011 9:00 AM EST 15 mg Given 10/05/2011 5:17 AM EST 15 mg Given 10/04/2011 11:45 PM EST 15 mg PARoxetine (PAXIL) tablet 60 mg 60 mg, Oral, EVERY MORNING, First dose on Tue10/03/11 at 0900, Until Discontinued, Routine Given 10/03/2011 9:00 AM EST 60 mg QUEtiapine (SEROQUEL) tablet 50 mg 50 mg, Oral, 3 TIMES DAILY, First dose on Tue10/03/11 at 0900, Until Discontinued, Routine Given 10/03/2011 9:00 PM EST 50 mg Given 10/03/2011 3:27 PM EST 50 mg Given 10/03/2011 9:00 AM EST 50 mg QUEtiapine (SEROQUEL) tablet 75 mg 75 mg, Oral, NIGHTLY, First dose (after last modification) on Tue10/04/11 at 2100, Until Discontinued, Routine Given 10/04/2011 8:09 PM EST 75 mg sodium chloride 0.9 % flush 5 mL 5 mL, Intravenous, EVERY 12 HOURS, First dose on Tue10/03/11 at 0115, Until Discontinued Given 10/05/2011 1:15 AM EST 5 mLs Given 10/04/2011 1:15 PM EST 5 mLs Given 10/03/2011 1:15 PM EST 5 mLs sodium chloride 0.9% infusion 50 mL/hr, Intravenous, CONTINUOUS, Starting on Tue10/04/11 at 1100, Until Tue10/05/11 at 0746 New Bag 10/04/2011 11:00 AM EST 50 mL/hr 50 mL/hr verapamil (CALAN-SR) CR tablet 120 mg 120 mg, Oral, NIGHTLY, First dose on 10/04/11 at 2100, Until Discontinued, Routine Given 10/04/2011 8:09 PM EST 120 mg documented in this encounter Active and Recently Administered Medications Times are shown in EST. Scheduled Medication Order 10/03/2011 10/04/2011 10/05/2011 chlorhexidine (PERIDEX) 0.12 % oral solution 15 mL (CANCELED) 15 mL, Oral, EVERY 12 HOURS SCHEDULED (2 times per day), First dose on 10/03/11 at 0900, Until Discontinued, [place] teeth every 12 hours, Routine 0900 (Given - Provider: Pallavi Welch RN)2099 (Given - Provider: Luis Armando Siu RN) 09 (Given - Provider: Lety Appiah RN) docusate sodium (COLACE) capsule 100 mg (CANCELED) 100 mg, Oral, 2 TIMES DAILY, First dose on 10/03/11 at 0900, Until Discontinued, Routine 0900 (Given - Provider: Pallavi Welch RN)2099 (Given - Provider: Luis Armando Siu RN) 09 (Given - Provider: Lety Appiah RN)2008 (Given - Provider: Park Foster, KOREY) 0900 (Given - Provider: Isabel Post, KORE[place]) famotidine (PEPCID) tablet 20 mg (CANCELED)(Linked Group 1) 20 mg, Oral, 2 TIMES DAILY, First dose on 10/03/11 at 0115, Until Discontinued, Routine 0115 (Given - Provider: Luis Armando Siu RN)09 (Given - Provider: Pallavi Welch RN)2099 (Given - Provider: Luis Armando Siu RN) 09 (Given - Provider: Lety Appiah, KOREY)2008 (Given - Provider: Park Foster, KOREY) 0900 (Given - Provider: Isabel Post, KORE[place]) gabapentin (NEURONTIN) capsule 300 mg 300 mg, Oral, 3 TIMES DAILY, First dose on 10/04/11 at 1100, Until Discontinued, Routine 1131 (Given - Provider: Lety Appiah RN)1500 (Not Given - Provider: Lety Appiah RN - Reason: See comment - Comment: off unit)2008 (Given - Provider: Park Foster RN) 899 (Given - Provider: Isabel Post, KOREY) lamoTRIgine (LAMICTAL) tablet 100 mg (CANCELED) 100 mg, Oral, 2 TIMES DAILY, First dose (after last modification) on 10/03/11 at 2100, Until Discontinued, Routine 2099 (Given - Provider: Luis Armando Siu, KORE[place]) 899 (Given - Provider: Lety Appiah RN)2008 (Given - Provider: Park Foster RN) 899 (Given - Provider: Isabel Post, KORE[place]) lamoTRIgine (LAMICTAL) tablet 200 mg (CANCELED) 200 mg, Oral, DAILY, First dose on 10/03/11 at 0900, Until Discontinued, Routine 899 (Given - Provider: Pallavi Welch RN) metoprolol succinate (TOPROL-XL) XL tablet 50 mg (CANCELED) 50 mg, Oral, DAILY, First dose on 10/03/11 at 0900, Until Discontinued, Routine 899 (Given - Provider: Pallavi Welch RN) 899 (Given - Provider: Lety Appiah RN) 09 (Given - Provider: Isabel Post, KORE[place]) PARoxetine (PAXIL) tablet 60 mg (CANCELED) 60 mg, Oral, EVERY MORNING, First dose on 10/03/11 at 0900, Until Discontinued, Routine 899 (Given - Provider: Pallavi Welch RN) QUEtiapine (SEROQUEL) tablet 50 mg (CANCELED) 50 mg, Oral, 3 TIMES DAILY, First dose on 10/03/11 at 0900, Until Discontinued, Routine 899 (Given - Provider: Pallavi Welch RN)1527 (Given - Provider: Pallavi Welch RN)2099 (Given - Provider: Luis Armando Siu RN) QUEtiapine (SEROQUEL) tablet 75 mg (CANCELED) 75 mg, Oral, NIGHTLY, First dose (after last modification) on Tue10/04/11 at 2100, Until Discontinued, Routine 2008 (Given - Provider: Park Foster RN) sodium chloride 0.9 % flush 5 mL (CANCELED) 5 mL, Intravenous, EVERY 12 HOURS, First dose on 10/03/11 at 0115, Until Discontinued 011 (Given - Provider: Luis Armando Siu RN)1315 (Given - Provider: Pallavi Welch RN) 011 (Due)1315 (Given - Provider: Lety Appiah RN) 011 (Given - Provider: Park Foster, KORE[place]) verapamil (CALAN-SR) CR tablet 120 mg 120 mg, Oral, NIGHTLY, First dose on Tue10/04/11 at 2100, Until Discontinued, Routine 2008 (Given - Provider: Park Foster, KORE[place]) Continuous Medication Order 10/03/2011 10/04/2011 10/05/2011 sodium chloride 0.9% infusion (CANCELED) 50 mL/hr, Intravenous, CONTINUOUS, Starting on Tue10/04/11 at 1100, Until Tue10/05/11 at 0746 1100 (New Bag - Provider: Laura Appiah RN) PRN Medication Order 10/03/2011 10/04/2011 10/05/2011 acetaminophen (TYLENOL) tablet 650 mg (CANCELED) 650 mg, Oral, EVERY 4 HOURS PRN, Starting on Tue10/03/11 at 0102, Until Tue10/05/11 at 1515, Pain, Maximum dose of acetaminophen is 4000 mg from all sources in 24 hours., Routine 2115 (Given - Provider: Luis Armando Siu RN) 0820 (Given - Provider: Lety Appiah RN)1152 (Given - Provider: Lety Appiah RN) fentaNYL 50mcg/mL injection (CANCELED) 25-50 mcg, Intravenous, EVERY 5 MIN PRN, Starting on Tue10/04/11 at 1247, Until Tue10/04/11 at 1533, Pain, per protocol, Angio/IR (Intra-Procedure), Routine 1530 (Given - Provider: Perla Patton RN - Comment: given in divided doses for IR procedure (last 50mcg given in IR recovery-yelena obrien/) gadopentetate dimeglumine (MAGNEVIST) 10 mmol/20 mL (469.01 mg/mL) injection 14.88 mL (COMPLETED) 14.88 mL (0.2 mL/kg/dose ? 74.4 kg), Intravenous, ONCE PRN, 1 dose, Starting on Tue10/03/11 at 0920, Until Tue10/03/11 at 0905, Per Protocol, Routine 0905 (Given - Provider: Dilcia Dietz) midazolam (VERSED) injection 1-2 mg (CANCELED) 1-2 mg, Intravenous, EVERY 5 MIN PRN, Starting on Tue10/04/11 at 1247, Until Tue10/04/11 at 1533, Sleep, per protocol, Angio/IR (Intra-Procedure), Routine 1531 (Given - Provider: Perla Patton RN - Comment: given in divided doses for IR procedure) OXYcodone (ROXICODONE) immediate release tablet 15 mg (CANCELED) 15 mg, Oral, EVERY 4 HOURS PRN, Starting on Tue10/03/11 at 0233, Until Tue10/05/11 at 1515, Pain, Routine 0334 (Given - Provider: Luis Armando Siu RN)0700 (Given - Provider: Luis Armando Siu RN)1004 (Given - Provider: Pallavi Welch RN - Comment: regularly takes during the day for chronic pain)1954 (Given - Provider: Luis Armando Siu RN) 0820 (Given - Provider: Lety Appiah RN)1152 (Given - Provider: Lety Appiah RN)2004 (Given - Provider: Park Foster, KOREY)2345 (Given - Provider: Park Foster, KOREY) 0517 (Given - Provider: Park Foster, KOREY)0900 (Given - Provider: Isabel Post RN) Linked Groups Order Group 1: famotidine (PEPCID) tablet 20 mg (CANCELED)Jump to med 20 mg, Oral, 2 TIMES DAILY, First dose on Tue10/03/11 at 0115, Until Discontinued, Routine Or famotidine (PEPCID) injection 20 mg (CANCELED) 20 mg, Intravenous, 2 TIMES DAILY, First dose on Tue10/03/11 at 0115, Until Discontinued, Routine documented in this encounter Care Teams Door Tender Relationship Specialty Start Date End Date Park Rawls APRN [address] [place] [address] PCP - General 10/03/11 02/05/16 documented as of this encounter
--- OUTSIDE RECORDS SUMMARY | 2024-04-13 11:22 | XMS_ITS | Encounter Summary ---
Author Organization Formerly [facility] Address [facility] [place] [address] Care Team Providers Care Lead Engineer Name Role Phone Park Rawls APRN Primary Care Provider [phone] Encounter Details Date Type Department Care Team (Late st Contact Info) Description 01/15/2012 External Results XRay at [address] [place] [id number] Provider, Scanning Social History Tobacco Use Types Packs/Day Years [...] Procedure Name Priority Date/Time Associated Diagnosis Comments CT SCAN (SCAN) Routine 12/15/2011 CT SCAN (SCAN) Routine 11/16/2011 CT SCAN (SCAN) Routine 10/02/2011 documented in this encounter Results * Scan Doc: CT Scan (12/15/2011) Anatomical Region Laterality Modality Other Kwan Tamayo DO MEDIA MGR SCAN EXT O RDR/RSLT * Scan Doc: CT Scan (11/16/2011) Anatomical Region Laterality Modality Other Giuliano Shaw MD MEDIA MGR SCAN EXT O RDR/RSLT * Scan Doc: CT Scan (10/02/2011) Anatomical Region Laterality Modality Other Scanning Provider MEDIA MGR SCAN EXT O RDR/RSLT documented in this encounter Visit Diagnoses Not on filedocumented in this encounter Care Teams Lead Engineer Relationship Specialty Start Date End Date Park Rawls APRN [address] [place] [address] PCP - General 10/03/11 02/05/16 documented as of this encounter
--- OUTSIDE RECORDS SUMMARY | 2024-04-13 11:22 | XMS_ITS | Encounter Summary ---
Author Organization [facility] Address [facility] [place] [address] Care Team Providers Care Health Manager Name Role Phone Park Rawls APRN Primary Care Provider [phone] Encounter Details Date Type Department Care Team (Late st Contact Info) Description 12/15/2011 Orders [place] [phone] Vikash Portillo MD [facility] [place] [address] Social History Tobacco Use Types Packs/Day Years [...] FILM LIBRARY STORAGE ONLY CT HEAD Routine 12/15/2011 9:15 AM EDT documented in this encounter Results * FILM LIBRARY- STORAGE ONLY CT HEAD (12/15/2011 9:15 AM EDT) 12/15/2011 9:15 AM EDT Narrative [facility] - 02/19/2014 1:41 PM EDT This is a non-reportable exam. Procedure Note Rios Benton/27/2014 This is a non-reportable exam. Vikash Portillo MD IM FILM LIBRARY ORD ERABLES [facility] [address] [place] [address] documented in this encounter Visit Diagnoses Not on filedocumented in this encounter Care Teams Health Manager Relationship Specialty Start Date End Date Park Rawls APRN [address] [place] [address] PCP - General 10/03/11 02/05/16 documented as of this encounter
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
--- OUTSIDE RECORDS SUMMARY | 2024-04-13 11:22 | XMS_ITS | Encounter Summary ---
Author Organization [facility] Address [facility] [place] [address] Care Team Providers Care Sales Support Technician Name Role Phone Modseto Hayes MD Primary Care Provider + Encounter Details Date Type Department Care Team (Late st Contact Info) Description 02/14/2011 1:00 PM EDT [place] [address] CLINIC, Yusef Wilkins MD [facility] [address] Discharge Disposition: Home Social History Tobacco Use [...] on filedocumented in this encounter Care Teams Sales Support Technician Relationship Specialty Start Date End Date Modesto Hayes MD [address] [place] [address] PCP - General 08/18/10 10/02/11 documented as of this encounter
--- OUTSIDE RECORDS SUMMARY | 2024-04-13 11:22 | XMS_ITS | Encounter Summary ---
Author Organization [facility] Address [facility] [place] [address] Care Team Providers Care Metal Fabricator Name Role Phone Modesto Hayes MD Primary Care Provider + Encounter Details Date Type Department Care Team (Late st Contact Info) Description 02/13/2011 Orders [place] [address] Alyssa Morales MD [facility] [place] [address] Social History Tobacco Use Types Packs/Day Years [...] FILM LIBRARY STORAGE ONLY CT HEAD Routine 02/13/2011 1:15 PM EDT documented in this encounter Results * FILM LIBRARY- STORAGE ONLY CT HEAD (02/13/2011 1:15 PM EDT) 02/13/2011 1:15 PM EDT Narrative [facility] - 01/29/2014 7:43 PM EDT This is a non-reportable exam. Procedure Note [facility] - 01/29/2014 This is a non-reportable exam. Alyssa Morales MD IMG FILM LIBRARY ORD ERABLES RAD [address] [facility] [place] [address] documented in this encounter Visit Diagnoses Not on filedocumented in this encounter Care Teams Metal Fabricator Relationship Specialty Start Date End Date Modesto Hayes MD [address] [place] [address] PCP - General 08/18/10 10/02/11 documented as of this encounter
--- NOTE | 2024-04-13 12:00 | DI.RAD_ITS ---
Exam(s) XR TOE RT FIFTH EXAM: XR TOE RT FIFTH CLINICAL HISTORY: pain, weeping wound. TECHNIQUE: 2D digital imaging was performed. COMPARISON: No exams were available for comparison FINDINGS: 3 views There is significant trabecular loss in the head of the proximal phalanx of the 5th toe as well as so me bone loss also evident in the adjacent fused middle-distal phalanx with dislocation of the articul ation at this level. No radiopaque foreign body. IMPRESSION: Findings are consistent with osteomyelitis. DATA REPOSITORY: RADIATION DOSE DELIVERED:
[2024-04-13 12:20] LABS: Abs Immature Grans 0.04 10^3/uL (0.0-0.06); Absolute Basophil Count 0.06 10^3/uL (0.0-0.2); Absolute Eosinophil Count 0.07 10^3/uL (0.0-0.7); Absolute Lymphocyte Count 2.03 10^3/uL (1.2-3.4); Absolute Monocyte Count 0.71 10^3/uL (0.1-0.8); Absolute Neutrophil Count 5.58 10^3/uL (1.2-6.7); Basophils % 0.7 %; Eosinophils % 0.8 %; HCT 45.2 % (36.0-46.0); HGB 15.3 g/dL (11.2-15.7); Immature Grans % 0.5 %; Lymphocytes % 23.9 %; MCHC 33.8 % (32.0-36.0); MCV 92 fL (80-95); MPV 10.5 fL (8.0-11.0); Monocytes % 8.4 %; Neutrophils % 65.7 %; Platelet Count 224 10^3/uL (130-400); RBC 4.93 10^6/uL (3.93-5.22); RDW 13.8 % (11.7-14.6); RDW-SD 46.7 fL; WBC 8.49 10^3/uL (4.4-10.8)
[2024-04-13] MEDS: Ketorolac 15 MG/ML VIAL IVP (12:23)
[2024-04-13 12:24] LABS: ESR 25 mm/hr (0-30)
[2024-04-13 12:29] LABS: ALT 20 U/L (14-59); AST 26 U/L (15-37); Albumin 3.8 g/dL (3.4-5.0); Alkaline Phosphatase 110 U/L (46-116); Anion Gap 9.2 mmol/L (3-11); BUN 12 mg/dL (7-18); Bilirubin, Total 0.82 mg/dL (0.2-1.0); C-Reactive Protein 1.04 mg/dL (<or=0.5); CO2 28.8 mmol/L (21.0-32.0); Calcium 9.2 mg/dL (8.5-10.1); Chloride 96 mmol/L (98-107); Estimated GFR 64.09 (mL/min/1.73m2); Glucose 104 mg/dL (74-106); Potassium 4.4 mmol/L (3.5-5.1); Sodium 134 mmol/L (136-145); Total Protein 8.2 g/dL (6.4-8.2)
--- NOTE | 2024-04-13 12:31 | ED.GENADUL_ITS ---
Discharge Plan Disposition Patient Disposition: Home Condition: Stable Discharge Details Clinical Impression: Osteomyelitis of fifth toe of right foot Primary Care Provider: Asya Hand ED Provider: Saud Bauer Home Meds and New Rx's Prescriptions: New doxycycline hyclate 100 mg capsule 100 mg PO BID Qty: 14 0RF Continued fluoxetine [Prozac] 40 MG capsule 20 mg PO TID albuterol 90 mcg/actuation aerosol 90 mcg inhalation Q3H PRN PRN losartan 25 mg tablet 50 mg PO DAILY metoprolol succinate 25 mg tablet extended release 24 hr 25 mg PO DAILY naproxen 500 mg tablet 500 mg PO BID PRN rosuvastatin 10 mg tablet 10 mg PO DAILY budesonide-formoterol [Symbicort] 80-4.5 mcg/actuation HFA aerosol inhaler 2 puff inhalation BID omeprazole 40 mg capsule,delayed release(DR/EC) 40 mg PO DAILY ondansetron HCl 8 mg tablet 8 mg PO Q8H PRN levofloxacin 750 mg tablet 750 mg PO DAILY aspirin 81 mg tablet,chewable 81 mg PO DAILY pregabalin 300 mg capsule 600 mg PO DAILY Discharge Instructions Instructions: Osteomyelitis in adults Additional Instructions: Please take doxycylcine and levaquin (levofloxacin) as prescribed. Stop rifampin. Followup with podiatry on Tuesday. Return to the ER for worsening or new concerning symptoms. Referrals: Asya Hand [Primary Care Provider] - Angeles Neumann DPM [[facility] STAFF PHYSICIAN] - Discharge Data Discharge Date/Time-TO BE ENTERED AT DEPARTURE: 04/13/24 14:57 HPI General Mode of arrival: ambulatory . Date/Time Provider Initiated Documentation: 04/13/24 11:17 . Limitations to Documentation: no limitations . Information obtained by: patient . HPI Narrative: 59yo female with multiple medical problems including CAD, CVA, HTN, smoker, hepatitis C, COPD, seizure, presents today with concern for osteomyelitis of the right fifth toe. Patient notes toe has had hole in it for the past 1 year. Now draining. Patient has been evaluated by her PCP and had toe xray and labs this past week. She was contacted by PCP earlier this week who informed her that the she osteomyelitis and prescribed rifampin and levaofloxacin. She is concerned about taking these antiboitics given potential side effects that she read on label. She denies fever but dose state that she feels generally unwell for sometime (2 years). Related Data Home Medications ?Medication ?Instructions ?Recorded ?Confirmed fluoxetine 40 mg capsule (Prozac) 20 mg PO TID 12/08/15 04/16/24 aspirin 81 mg chewable tablet 81 mg PO DAILY 06/09/21 04/16/24 pregabalin 300 mg capsule 600 mg PO DAILY 06/09/21 04/16/24 albuterol 90 mcg/actuation aerosol 90 mcg inhalation Q3H PRN PRN 09/28/22 04/16/24 inhaler budesonide-formoterol HFA 80 2 puff inhalation BID 09/28/22 04/16/24 mcg-4.5 mcg/actuation aerosol inhaler (Symbicort) losartan 25 mg tablet 50 mg PO DAILY 09/28/22 04/16/24 metoprolol succinate 25 mg 25 mg PO DAILY 09/28/22 04/16/24 tablet,extended release 24 hr naproxen 500 mg tablet 500 mg PO BID PRN 09/28/22 04/16/24 rosuvastatin 10 mg tablet 10 mg PO DAILY 09/28/22 04/16/24 omeprazole 40 mg capsule,delayed 40 mg PO DAILY 04/21/23 04/16/24 release ondansetron HCl 8 mg tablet 8 mg PO Q8H PRN 04/21/23 04/16/24 doxycycline hyclate 100 mg capsule 100 mg PO BID #14 caps 04/13/24 04/16/24 levofloxacin 750 mg tablet 750 mg PO DAILY 04/13/24 04/16/24 Previous Rx's ?Medication ?Instructions ?Recorded doxycycline hyclate 100 mg capsule 100 mg PO BID #14 caps 04/13/24 Allergies Allergy/AdvReac Type Severity Reaction Status Date / Time Sulfa (Sulfonamide Allergy Intermediate swelling Unverified 04/13/24 11:02 Antibiotics) of neck/itching sumatriptan (From Imitrex) Allergy Unknown bad Unverified 04/13/24 11:02 seiziure alprazolam Allergy pt denies Verified 04/13/24 11:02 ampicillin Allergy facial Verified 04/13/24 11:02 swelling, skin rash General Stated Complaint: Cellulitis GAYATRI: 3 Course Vital Signs Vital signs: Vital Signs Temperature 36.5 C 04/13/24 10:57 Pulse 63 04/13/24 10:57 Respiratory Rate 18 04/13/24 10:57 Blood Pressure 124/97 H 04/13/24 10:57 Pulse Oximetry 96 04/13/24 10:57 Temperature 36.5 C 04/13/24 10:57 Pulse 63 04/13/24 10:57 Respiratory Rate 18 04/13/24 10:57 Blood Pressure 124/97 H 04/13/24 10:57 Pulse Oximetry 96 04/13/24 10:57 Lab/Test Results Lab/Test Results: Laboratory Tests Range/Units 04/13/24 11:20 WBC (4.4-10.8) 10^3/uL 8.49 RBC (3.93-5.22) 10^6/uL 4.93 Hgb (11.2-15.7) g/dL 15.3 Hct (36.0-46.0) % 45.2 MCV (80-95) fL 92 MCH (27.0-33.0) pg 31.0 MCHC (32.0-36.0) % 33.8 RDW (11.7-14.6) % 13.8 Plt Count (130-400) 10^3/uL 224 MPV (8.0-11.0) fL 10.5 Immature Gran % % 0.5 Neutrophils % % 65.7 Lymphocytes % % 23.9 Monocytes % % 8.4 Eosinophils % % 0.8 Basophils % % 0.7 Nucleated RBC % (0.0-0.3) % 0.0 Absolute Neutrophils (1.2-6.7) 10^3/uL 5.58 Absolute Lymphocytes (1.2-3.4) 10^3/uL 2.03 Absolute Monocytes (0.1-0.8) 10^3/uL 0.71 Absolute Eosinophils (0.0-0.7) 10^3/uL 0.07 Absolute Basophils (0.0-0.2) 10^3/uL 0.06 ESR (0-30) mm/hr 25 Sodium (136-145) mmol/L 134 L Potassium (3.5-5.1) mmol/L 4.4 Chloride (98-107) mmol/L 96 L Carbon Dioxide (21.0-32.0) mmol/L 28.8 Anion Gap (3-11) mmol/L 9.2 BUN (7-18) mg/dL 12 Creatinine (0.55-1.02) mg/dL 1.0 Est GFR (CKD-EPI 2020) (mL/min/1.73m2) 64.09 Glucose (74-106) mg/dL 104 Calcium (8.5-10.1) mg/dL 9.2 Total Bilirubin (0.2-1.0) mg/dL 0.82 AST (15-37) U/L 26 ALT (14-59) U/L 20 Alkaline Phosphatase (46-116) U/L 110 C-Reactive Protein (<or=0.5) mg/dL 1.04 H Total Protein (6.4-8.2) g/dL 8.2 Albumin (3.4-5.0) g/dL 3.8 Medical Decision Making 59yo female with mulitple medical problems here with concern for osteomyelitis right 5th toe. History of MRSA. Patient on rifampin and levaquin and concerned with potential side effects. xray of the right 5th toe interpreted by radiology: Findings are consistent with osteomyelitis. Labs reviewed and elevated CRP. I spoke with Dr. Christopher. Plan to treat with doxycyline 100mg bid 1week and continue levaquin. Plan for referral to podiatry for close outpatient followup. Lab Data Lab results reviewed: Yes I reviewed the patient's lab results. Labs: Laboratory Tests Range/Units 04/13/24 11:20 WBC (4.4-10.8) 10^3/uL 8.49 RBC (3.93-5.22) 10^6/uL 4.93 Hgb (11.2-15.7) g/dL 15.3 Hct (36.0-46.0) % 45.2 MCV (80-95) fL 92 MCH (27.0-33.0) pg 31.0 MCHC (32.0-36.0) % 33.8 RDW (11.7-14.6) % 13.8 Plt Count (130-400) 10^3/uL 224 MPV (8.0-11.0) fL 10.5 Immature Gran % % 0.5 Neutrophils % % 65.7 Lymphocytes % % 23.9 Monocytes % % 8.4 Eosinophils % % 0.8 Basophils % % 0.7 Nucleated RBC % (0.0-0.3) % 0.0 Absolute Neutrophils (1.2-6.7) 10^3/uL 5.58 Absolute Lymphocytes (1.2-3.4) 10^3/uL 2.03 Absolute Monocytes (0.1-0.8) 10^3/uL 0.71 Absolute Eosinophils (0.0-0.7) 10^3/uL 0.07 Absolute Basophils (0.0-0.2) 10^3/uL 0.06 ESR (0-30) mm/hr 25 Sodium (136-145) mmol/L 134 L Potassium (3.5-5.1) mmol/L 4.4 Chloride (98-107) mmol/L 96 L Carbon Dioxide (21.0-32.0) mmol/L 28.8 Anion Gap (3-11) mmol/L 9.2 BUN (7-18) mg/dL 12 Creatinine (0.55-1.02) mg/dL 1.0 Est GFR (CKD-EPI 2020) (mL/min/1.73m2) 64.09 Glucose (74-106) mg/dL 104 Calcium (8.5-10.1) mg/dL 9.2 Total Bilirubin (0.2-1.0) mg/dL 0.82 AST (15-37) U/L 26 ALT (14-59) U/L 20 Alkaline Phosphatase (46-116) U/L 110 C-Reactive Protein (<or=0.5) mg/dL 1.04 H Total Protein (6.4-8.2) g/dL 8.2 Albumin (3.4-5.0) g/dL 3.8 Quality:SDKS Health Related Social Needs: No Data to Display PFSH All Active Problems (Updated 04/16/24 @ 10:25 by Angeles Neumann DPM) Ulcer of right foot with fat layer exposed (Acute) Osteomyelitis of fifth toe of right foot (Acute) Skin lesion of left arm (Acute) History of colon polyps (Acute ~07/2023) hyperplastic Chronic nausea (Acute) Pulmonary hypertension (Acute) Diastolic dysfunction (Acute) Dilated aortic root (Acute) Atherosclerosis of aorta (Acute) Coronary artery calcification seen on CAT scan (Acute) CAD (coronary artery disease) (Chronic) Diverticulitis (Chronic) Atherosclerotic heart disease of [place] coronary artery without angina pectoris (Acute) Seizures (Acute) PRES (posterior reversible encephalopathy syndrome) (Acute) Abdominal pain (Acute) Medical History NSTEMI (non-ST elevated myocardial infarction) x2 2017 NIKKI (obstructive sleep apnea) On HS O2 3L COPD (chronic obstructive pulmonary disease) Vitamin D deficiency Tobacco abuse Postmenopausal osteoporosis Polyp of gallbladder Anxiety and depression Hyperlipidemia Heart disease GERD (gastroesophageal reflux disease) Essential hypertension Cyst, dermoid, face Constipation Chronic pain Hepatitis C Cerebral hemorrhage 2012 Cataract Arthritis Alcoholism remote Surgical History History of esophagogastroduodenoscopy (~07/2023) History of colonoscopy (~07/2023) S/P cholecystectomy S/P ankle arthrodesis S/P shoulder surgery S/P hysterectomy S/P lumbar fusion S/P cervical spinal fusion S/P appendectomy H/O heart artery stent 2016 Family History Father Colon polyps Hypertension Heart disease Alcohol use disorder Mother Stroke Alcohol use disorder Son Alcohol use disorder Social History Smoking/Tobacco Use Status: Current every day Tobacco Type: cigarettes Smoking risk assessment performed?: Yes Alcohol Intake: current Alcohol Intake frequency: 0-2 drinks per day Alcohol type: beer Drug use: Daily Substance use type: marijuana Household members: family Housing: apartment Number of Children: 2 current occupation: Disabled Do you feel safe at home: Yes Do you feel safe in your relationship?: Yes Additional Social history: lives with son and grandkids
[2024-04-13 12:49] VITALS: BP 124/97; PULSE 63; RESP 18; TEMP 36.5; O2SAT 96
--- NOTE | 2024-04-13 14:27 | OCONE_ITS ---
Date of service: 04/13/24 Time of Service: 14:27 Assessment and Plan Assessment and plan (1) Osteomyelitis of fifth toe of right foot: Status: Acute Assessment and plan: 59 year old female with chronic Right little toe osteomyelitis Discussed with ER Dr. Bauer. Vitals, labs, clinical evaluation reassuring for outpatient management. Recommend doxycycline added to PO abx to cover MRSA. Close follow up with podiatry next week for likely surgery. PFSH All Active Problems (Updated 04/13/24 @ 13:49 by Saud Bauer MD) Osteomyelitis of fifth toe of right foot (Acute) Skin lesion of left arm (Acute) History of colon polyps (Acute ~07/2023) hyperplastic Chronic nausea (Acute) Pulmonary hypertension (Acute) Diastolic dysfunction (Acute) Dilated aortic root (Acute) Atherosclerosis of aorta (Acute) Coronary artery calcification seen on CAT scan (Acute) CAD (coronary artery disease) (Chronic) Diverticulitis (Chronic) Atherosclerotic heart disease of [place] coronary artery without angina pectoris (Acute) Seizures (Acute) PRES (posterior reversible encephalopathy syndrome) (Acute) Abdominal pain (Acute) Medical History (Updated 04/13/24 @ 13:49 by Saud Bauer MD) NSTEMI (non-ST elevated myocardial infarction) x2 2017 NIKKI (obstructive sleep apnea) On HS O2 3L COPD (chronic obstructive pulmonary disease) Vitamin D deficiency Tobacco abuse Postmenopausal osteoporosis Polyp of gallbladder Anxiety and depression Hyperlipidemia Heart disease GERD (gastroesophageal reflux disease) Essential hypertension Cyst, dermoid, face Constipation Chronic pain Hepatitis C Cerebral hemorrhage 2012 Cataract Arthritis Alcoholism remote Surgical History (Updated 08/10/23 @ 08:18 by Brittani Momin) History of esophagogastroduodenoscopy (~07/2023) History of colonoscopy (~07/2023) S/P cholecystectomy S/P ankle arthrodesis S/P shoulder surgery S/P hysterectomy S/P lumbar fusion S/P cervical spinal fusion S/P appendectomy H/O heart artery stent 2016 Family History Father Colon polyps Hypertension Heart disease Alcohol use disorder Mother Stroke Alcohol use disorder Son Alcohol use disorder Social History Smoking/Tobacco Use Status: Current every day Tobacco Type: cigarettes Smoking risk assessment performed?: Yes Alcohol Intake: current Alcohol Intake frequency: 0-2 drinks per day Alcohol type: beer Drug use: Daily Substance use type: marijuana Household members: family Housing: apartment Number of Children: 2 current occupation: Disabled Do you feel safe at home: Yes Do you feel safe in your relationship?: Yes Additional Social history: lives with son and grandkids Results Last Vital Signs Temp 97.7 F 04/13/24 12:49 Pulse 63 04/13/24 12:49 Resp 18 04/13/24 12:49 BP 124/97 H 04/13/24 12:49 Pulse Ox 96 04/13/24 12:49 Labs 04/13/24 11:20 04/13/24 11:20 Labs: Laboratory Results - last 24 hr 04/13/24 11:20 WBC 8.49 RBC 4.93 Hgb 15.3 Hct 45.2 MCV 92 MCH 31.0 MCHC 33.8 RDW 13.8 Plt Count 224 MPV 10.5 Immature Gran % 0.5 Neutrophils % 65.7 Lymphocytes % 23.9 Monocytes % 8.4 Eosinophils % 0.8 Basophils % 0.7 Nucleated RBC % 0.0 Absolute Neutrophils 5.58 Absolute Lymphocytes 2.03 Absolute Monocytes 0.71 Absolute Eosinophils 0.07 Absolute Basophils 0.06 ESR 25 Sodium 134 L Potassium 4.4 Chloride 96 L Carbon Dioxide 28.8 Anion Gap 9.2 BUN 12 Creatinine 1.0 Est GFR (CKD-EPI 2020) 64.09 Glucose 104 Calcium 9.2 Total Bilirubin 0.82 AST 26 ALT 20 Alkaline Phosphatase 110 C-Reactive Protein 1.04 H Total Protein 8.2 Albumin 3.8
[2024-04-13 14:54] VITALS: BP 122/88; PULSE 63; RESP 18; TEMP 36.5; O2SAT 96
== END 2024-04-13 14:57 | disposition home or self-care (01) ==
PROVIDERS: Emergency Provider Student in an Organized Health Care Education/Training Program; PCP Internal Medicine
DX: M86.9 Osteomyelitis, unspecified (principal); I10 Essential (primary) hypertension; I25.2 Old myocardial infarction; J44.9 Chronic obstructive pulmonary disease, unspecified; Z95.2 Presence of prosthetic heart valve; Z98.1 Arthrodesis status; Z86.14 Personal history of Methicillin resistant Staphylococcus aureus infection; Z86.73 Personal history of transient ischemic attack (TIA), and cerebral infarction without residual deficits; F17.210 Nicotine dependence, cigarettes, uncomplicated; Z79.82 Long term (current) use of aspirin
CPT/HCPCS: 80053; 85652; 96374; 99283; 99284; 73660; 85025; 86140; J1885

== ENCOUNTER → 2024-04-16 07:37 | Outpatient (BNVA) | payer OTHER, MEDICAID, SELFPAY | PROVIDERS: PCP Internal Medicine; Referring Provider Internal Medicine; Visit Provider Podiatrist | DX: M86.8X7 Other osteomyelitis, ankle and foot (principal); L97.512 Non-pressure chronic ulcer of other part of right foot with fat layer exposed; Z72.0 Tobacco use | CPT/HCPCS: 99215 ==

== ENCOUNTER 2024-10-18 07:20 | Emergency (ER) | payer MEDICARE, MEDICAID, SELFPAY ==
[2024-10-18 07:23] VITALS: BP 167/95; PULSE 75; RESP 17; TEMP 36.8; O2SAT 98
[2024-10-18 07:26] VITALS: BP 167/95; PULSE 75; RESP 17; TEMP 36.8; O2SAT 98
--- NOTE | 2024-10-18 07:30 | DI.RAD_ITS ---
Exam(s) XR CHEST 2V PA LATERAL EXAM: XR CHEST 2V PA LATERAL CLINICAL HISTORY: cough. TECHNIQUE: 2D digital imaging was performed. COMPARISON: CT CT CHEST/ABD/PELVIS W/O CONT from 01/23/2024 CR XR CHEST 1 VW from 01/23/2024 FINDINGS: 2 views: Fusion plate in the lower cervical spine evident. Heart size is normal. The mediastinum is not widened. Left lung is clear. There is mild infiltrate noted in the right upper lobe above the minor fissure. No pleural effusions. IMPRESSION: Atelectasis and mild infiltrate in the right upper lobe. DATA REPOSITORY: RADIATION DOSE DELIVERED:
[2024-10-18] MEDS: Albuterol/Ipratropium 3 ML UPD VIAL UPD (07:46)
[2024-10-18] MEDS: Dexamethasone 4 MG TAB 8 MG PO (07:46)
--- NOTE | 2024-10-18 07:48 | W.ED.GENAD ---
Discharge Plan Disposition Patient Disposition: Home Condition: Stable Discharge Details Clinical Impression: Pneumonia Primary Care Provider: Asya Hand ED Provider: Maribell Morton Home Meds and New Rx's Prescriptions: New promethazine 6.25 mg/5 mL syrup 12.5 mg PO Q6H PRN (Reason: cough) Qty: 120 0RF benzonatate 100 mg capsule 100 mg PO TID PRN (Reason: cough) Qty: 30 0RF prednisone 20 mg tablet 40 mg PO DAILY 4 Days Qty: 8 0RF azithromycin 250 mg tablet 250 mg PO DAILY 4 Days Qty: 4 0RF Rx Instructions: start on day 2 of therapy No Action fluoxetine [Prozac] 40 MG capsule 20 mg PO TID albuterol 90 mcg/actuation aerosol 90 mcg inhalation Q3H PRN PRN losartan 25 mg tablet 25 mg PO DAILY metoprolol succinate 25 mg tablet extended release 24 hr 25 mg PO DAILY naproxen 500 mg tablet 500 mg PO BID PRN rosuvastatin 10 mg tablet 10 mg PO DAILY budesonide-formoterol [Symbicort] 80-4.5 mcg/actuation HFA aerosol inhaler 2 puff inhalation BID omeprazole 40 mg capsule,delayed release(DR/EC) 40 mg PO DAILY Patient Comments: Has not had for a few weeks ondansetron HCl 8 mg tablet 8 mg PO Q8H PRN mirtazapine 7.5 mg tablet 7.5 mg PO QHS Patient Comments: TAKE ONE TABLET BY MOUTH AT BEDTIME aspirin 81 mg tablet,chewable 81 mg PO DAILY Patient Comments: Last taken a couple of weeks ago pregabalin 300 mg capsule 600 mg PO DAILY Discharge Instructions Instructions: Community-Acquired Pneumonia, Adult (DC) Additional Instructions: Your COVID and flu testing are negative, but your x-ray does demonstrate pneumonia. You were given the first dose of your antibiotic in the emergency department. You are also given a breathing treatment and steroids. Additional steroids and cough medication have been sent to the pharmacy. As well as your remaining antibiotic doses. Please take these medications. Continue taking your inhaler breathing treatments every 4-6 hours. Motrin and Tylenol to help with bodyaches or fever. Please follow-up with your primary care provider as needed return to the emergency department if symptoms worsen. HPI General Date/Time Provider Initiated Documentation: 10/18/24 07:29. Limitations to Documentation: no limitations. Information obtained by: patient. HPI Narrative: 59-year-old female with past medical history of CAD, pulmonary hypertension, tobacco abuse presents for evaluation of cough and bodyaches. She reports that over the [facility] noted to her when she checked and that there were multiple people they are sick with respiratory symptoms. She has since been placed in a hotel. She states that her symptoms started yesterday. She reports headache body aches. No known fever. She reports cough. No significant shortness of breath. Cough nonproductive. She does report a mild sore throat. Related Data Home Medications ?Medication ?Instructions ?Recorded ?Confirmed fluoxetine 40 mg capsule (Prozac) 20 mg PO TID 12/08/15 10/18/24 aspirin 81 mg chewable tablet 81 mg PO DAILY 06/09/21 10/18/24 pregabalin 300 mg capsule 600 mg PO DAILY 06/09/21 10/18/24 albuterol 90 mcg/actuation aerosol 90 mcg inhalation Q3H PRN PRN 09/28/22 10/18/24 inhaler budesonide-formoterol HFA 80 2 puff inhalation BID 09/28/22 10/18/24 mcg-4.5 mcg/actuation aerosol inhaler (Symbicort) losartan 25 mg tablet 25 mg PO DAILY 09/28/22 10/18/24 metoprolol succinate 25 mg 25 mg PO DAILY 09/28/22 10/18/24 tablet,extended release 24 hr naproxen 500 mg tablet 500 mg PO BID PRN 09/28/22 10/18/24 rosuvastatin 10 mg tablet 10 mg PO DAILY 09/28/22 10/18/24 omeprazole 40 mg capsule,delayed 40 mg PO DAILY 04/21/23 10/18/24 release ondansetron HCl 8 mg tablet 8 mg PO Q8H PRN 04/21/23 10/18/24 azithromycin 250 mg tablet 250 mg PO DAILY 4 days #4 tabs 10/18/24 benzonatate 100 mg capsule 100 mg PO TID PRN cough #30 caps 10/18/24 mirtazapine 7.5 mg tablet 7.5 mg PO QHS 10/18/24 10/18/24 prednisone 20 mg tablet 40 mg (2 x 20 mg) PO DAILY 4 days 10/18/24 #8 tabs promethazine 6.25 mg/5 mL oral 12.5 mg (10 mL) PO Q6H PRN cough 10/18/24 syrup #120 mL Previous Rx's ?Medication ?Instructions ?Recorded azithromycin 250 mg tablet 250 mg PO DAILY 4 days #4 tabs 10/18/24 benzonatate 100 mg capsule 100 mg PO TID PRN cough #30 caps 10/18/24 prednisone 20 mg tablet 40 mg (2 x 20 mg) PO DAILY 4 days 10/18/24 #8 tabs promethazine 6.25 mg/5 mL oral 12.5 mg (10 mL) PO Q6H PRN cough 10/18/24 syrup #120 mL Allergies Allergy/AdvReac Type Severity Reaction Status Date / Time Sulfa (Sulfonamide Allergy Intermediate swelling Unverified 10/18/24 07:31 Antibiotics) of neck/itching sumatriptan (From Imitrex) Allergy Unknown bad Unverified 10/18/24 07:31 seiziure ampicillin Allergy facial Verified 10/18/24 07:31 swelling, skin rash General Stated Complaint: RespSymp GAYATRI: 4 Exam Narrative Exam Narrative: Review of Systems: All systems reviewed & are unremarkable except as noted in HPI and below Well-developed, no acute distress afebrile NCAT RRR no murmur Unlabored respiratory effort course cough, diminished at bases Nondistended abdomen Course Vital Signs Vital signs: Vital Signs Temperature 36.8 C 10/18/24 07:23 Pulse 75 10/18/24 07:23 Respiratory Rate 17 10/18/24 07:23 Blood Pressure 167/95 H 10/18/24 07:23 Pulse Oximetry 98 10/18/24 07:23 Temperature 36.8 C 10/18/24 07:26 Temperature Source Oral 10/18/24 07:26 Pulse 75 10/18/24 07:26 Respiratory Rate 17 10/18/24 07:26 Respiratory Effort Normal 10/18/24 07:29 Respiratory Depth Normal 10/18/24 07:29 Blood Pressure 167/95 H 10/18/24 07:26 Blood Pressure Position Sitting 10/18/24 07:26 Pulse Oximetry 98 10/18/24 07:26 Oxygen Delivery Method Room Air 10/18/24 07:26 Oxygen Flow Rate 0 10/18/24 07:26 Pain Level 7 10/18/24 07:26 Medical Decision Making Emergent evaluation of URI symptoms. Initial differential includes viral syndrome, pneumonia, COPD exacerbation. Patient did have recent exposure [facility]. Vital signs are stable and there is no hypoxia. Plan for viral testing and chest x-ray. 0820 Viral testing is negative. Chest x-ray reviewed and there does appear to be a right-sided infiltrate. Will treat with antibiotics. First dose given in the emergency department. Quality:SDOH Health Related Social Needs: Health related social needs housing instability, housed, with risk of homelessness (Z59.811), inadequate housing (Z59.1), material hardship(utilities) (Z59.12), problems related to housing/economic circumstances (Z59.89) PFSH All Active Problems (Updated 10/18/24 @ 08:23 by Maribell Morton MD) Pneumonia (Acute) Ulcer of right foot with fat layer exposed (Acute) Skin lesion of left arm (Acute) History of colon polyps (Acute ~07/2023) hyperplastic Chronic nausea (Acute) Pulmonary hypertension (Acute) Diastolic dysfunction (Acute) Dilated aortic root (Acute) Atherosclerosis of aorta (Acute) Coronary artery calcification seen on CAT scan (Acute) CAD (coronary artery disease) (Chronic) Diverticulitis (Chronic) Atherosclerotic heart disease of [place] coronary artery without angina pectoris (Acute) Seizures (Acute) PRES (posterior reversible encephalopathy syndrome) (Acute) Abdominal pain (Acute) Medical History NSTEMI (non-ST elevated myocardial infarction) x2 2017 NIKKI (obstructive sleep apnea) On HS O2 3L COPD (chronic obstructive pulmonary disease) Vitamin D deficiency Tobacco abuse Postmenopausal osteoporosis Polyp of gallbladder Anxiety and depression Hyperlipidemia Heart disease GERD (gastroesophageal reflux disease) Essential hypertension Cyst, dermoid, face Constipation Chronic pain Hepatitis C Cerebral hemorrhage 2013 Cataract Arthritis Alcoholism remote Surgical History History of esophagogastroduodenoscopy (~07/2023) History of colonoscopy (~07/2023) S/P cholecystectomy S/P ankle arthrodesis S/P shoulder surgery S/P hysterectomy S/P lumbar fusion S/P cervical spinal fusion S/P appendectomy H/O heart artery stent 2017 Family History Father Colon polyps Hypertension Heart disease Alcohol use disorder Mother Stroke Alcohol use disorder Son Alcohol use disorder Social History Smoking/Tobacco Use Status: Current every day Tobacco Type: cigarettes Smoking risk assessment performed?: Yes Alcohol Intake: current Alcohol Intake frequency: 0-2 drinks per day Alcohol type: beer Drug use: Daily Substance use type: marijuana Household members: family Housing: apartment Number of Children: 2 current occupation: Disabled Do you feel safe at home: Yes Do you feel safe in your relationship?: Yes Additional Social history: lives with son and grandkids PAWSS Have you Been Recently Intoxicated or Drunk Within the Last 30 days?: No Have you Ever Experienced Previous Episodes of Alcohol Withdrawal?: No Have you ever Experienced Withdrawal Seizures?: No Have you ever Experienced Delirium Tremens(DT)s?: No Have you ever undergone Alcohol Rehabilitation Treatment (i.e, inpt ot outpatient treatment programs)?: No Have you ever Experienced Blackouts?: No Have you ever Combined Alcohol with other Downers within the last 90 days?: No Have you ever Combined Alcohol with any other Substance of Abuse during the last 90 days?: No Result: 0
[2024-10-18 08:25] VITALS: BP 145/89; PULSE 79; RESP 18; O2SAT 97
[2024-10-18] MEDS: Azithromycin 250 MG TAB 500 MG PO (08:35)
[2024-10-18 08:40] VITALS: BP 142/91; PULSE 85; RESP 18; O2SAT 96
== END 2024-10-18 08:42 | disposition home or self-care (01) ==
PROVIDERS: Emergency Provider Emergency Medicine; PCP Internal Medicine
DX: J18.9 Pneumonia, unspecified organism (principal); I10 Essential (primary) hypertension; E78.5 Hyperlipidemia, unspecified; I25.10 Atherosclerotic heart disease of native coronary artery without angina pectoris; I25.2 Old myocardial infarction; J44.9 Chronic obstructive pulmonary disease, unspecified; Z95.5 Presence of coronary angioplasty implant and graft; F17.210 Nicotine dependence, cigarettes, uncomplicated; Z79.82 Long term (current) use of aspirin; Z98.1 Arthrodesis status
CPT/HCPCS: 87426; 94640; 99284; 71046; J7620; J8540

== ENCOUNTER 2025-04-24 11:11 | Emergency (ER) | payer MEDICARE, MEDICAID, SELFPAY ==
--- NOTE | 2025-04-24 11:00 | RT.EKG_ITS ---
APPROVED REPORT Exam: Resting ECG Reason for Exam: Dizzy Patient Location: E HR:79 bpm ECG Measurements Heart Rate 79 AXIS AK 173 P 68 QRSd 96 QRS 25 QT 430 T 59 QTc 495 Conclusion Sinus rhythm...normal P axis, V-rate 60- 99 Anteroseptal infarct, age indeterminate...Q >35mS, T neg, V1-V2 Sinus rhythm. NO significant change from prior 06/09/21. WD
[2025-04-24 11:14] VITALS: PULSE 73; RESP 18; TEMP 35.7; O2SAT 99
[2025-04-24 11:19] VITALS: PULSE 73; RESP 18; TEMP 35.7; O2SAT 99
--- NOTE | 2025-04-24 11:30 | DI.RAD_ITS ---
Exam(s) XR KNEE RT 3V AP,LAT,LAITH XR TIB/FIB RT EXAM: XR TIB/FIB RT CLINICAL HISTORY: R koenig pain. TECHNIQUE: 2D digital imaging was performed. Five views. COMPARISON: CR XR KNEE RT 3V AP,LAT,LAITH from 04/24/2025 FINDINGS: BONES: No acute fracture is present. No bony destructive lesion is seen. The knee and ankle joints are unremarkable. SOFT TISSUE: Chronic appearing calcification adjacent to the mid fibula which could be within the interosseous membrane IMPRESSION: No acute abnormality in the knee or leg. DATA REPOSITORY: RADIATION DOSE DELIVERED:
--- NOTE | 2025-04-24 11:30 | DI.CT_ITS ---
Exam(s) CT HEAD CERVICAL SPINE WO EXAM: CT HEAD CERVICAL SPINE WO CLINICAL HISTORY: headache, neck pain. TECHNIQUE: Imaging Protocol: Axial computed tomography images with coronal and sagittal reformatted images were created and reviewed COMPARISON: MR MR BRAIN WO CONTRAST from 10/27/[address] HEAD/BRAIN WO CONTRAST from 01/23/2024 FINDINGS: Head CT Ventricles and Extra axial spaces: Normal in size and morphology for the patient's age. Hemorrhage: None. Cerebral parenchyma: No evidence of mass or acute infarct. Old area of encephalomalacia in the posteromedial left parietal lobe. Mild frontal atrophy. Midline shift: None. Brainstem/Cerebellum: Normal. Calvarium: Normal. Visualized Paranasal sinuses/Mastoids: Clear. Soft tissues: Unremarkable. Cervical Spine CT BONES: Vertebral body heights are maintained. Alignment is normal. There is no evidence of acute fracture. Anterior fusion hardware from C5 through C7. Degenerative disc changes and facet degenerative changes are seen . SOFT TISSUES: No paraspinal hematoma. The airway appears intact. No pneumothorax is seen at the lung apices. IMPRESSION: Head CT: No acute abnormality. Old area of encephalomalacia in the left posterior parietal lobe. C-spine CT: Degenerative and postsurgical changes, no acute abnormality. RADIATION DOSE DELIVERED: 1,289.2mGy.cm Total DLP DATA REPOSITORY: All CT scans at this facility are submitted to the National Radiology Data Registry (NRDR) Dose Index Registry (DIR) with the [employer] ([employer]). RADIATION OPTIMIZATION: All CT scans at this facility use at least one of these dose optimization techniques: automated exposure control; mA and/or kV adjustment per patient size (includes targeted exams where dose is matched to clinical indication); or iterative reconstruction.
[2025-04-24 11:44] LABS: Abs Immature Grans 1.16 10^3/uL (0.0-0.06); HCT 42.1 % (36.0-46.0); HGB 14.3 g/dL (11.2-15.7); MCH 31.2 pg (27.0-33.0); MCHC 34.0 % (32.0-36.0); MCV 92 fL (80-95); MPV 10.1 fL (8.0-11.0); Platelet Count 304 10^3/uL (130-400); RBC 4.59 10^6/uL (3.93-5.22); RDW 12.5 % (11.7-14.6); RDW-SD 41.8 fL; WBC 9.94 10^3/uL (4.4-10.8)
--- NOTE | 2025-04-24 11:46 | W.ED.GENAD ---
Discharge Plan Disposition Patient Disposition: Home Condition: Stable Discharge Details Clinical Impression: Chronic pain syndrome, Pain in right leg Primary Care Provider: Asya Hand ED Provider: Luis Armando Marmolejo Home Meds and New Rx's Prescriptions: Continued fluoxetine [Prozac] 40 MG capsule 20 mg PO TID albuterol 90 mcg/actuation aerosol 90 mcg inhalation Q3H PRN PRN losartan 25 mg tablet 25 mg PO DAILY metoprolol succinate 25 mg tablet extended release 24 hr 25 mg PO DAILY naproxen 500 mg tablet 500 mg PO BID PRN rosuvastatin 10 mg tablet 10 mg PO DAILY budesonide-formoterol [Symbicort] 80-4.5 mcg/actuation HFA aerosol inhaler 2 puff inhalation BID omeprazole 40 mg capsule,delayed release(DR/EC) 40 mg PO DAILY Patient Comments: Has not had for a few weeks ondansetron HCl 8 mg tablet 8 mg PO Q8H PRN mirtazapine 7.5 mg tablet 7.5 mg PO QHS Patient Comments: TAKE ONE TABLET BY MOUTH AT BEDTIME promethazine 6.25 mg/5 mL syrup 12.5 mg PO Q6H PRN (Reason: cough) Qty: 120 0RF benzonatate 100 mg capsule 100 mg PO TID PRN (Reason: cough) Qty: 30 0RF oxycodone 15 mg tablet 15 mg PO Q6H PRN Patient Comments: TAKE ONE TABLET BY MOUTH EVERY 6 HOURS NEEDED FOR PAIN desvenlafaxine succinate 50 mg tablet extended release 24 hr 50 mg PO Q24H Patient Comments: TAKE ONE TABLET BY MOUTH EVERY DAY aspirin 81 mg tablet,chewable 81 mg PO DAILY Patient Comments: Last taken a couple of weeks ago pregabalin 300 mg capsule 600 mg PO DAILY Discharge Instructions Instructions: Chronic pain Additional Instructions: You were seen in the emergency department for your reported leg pain at your right proximal koenig, there is no abnormality on x-ray to have no evidence of trauma here, you report back pain as you always have as well as neck pain, there is no acute severe findings on your CT from your head through your pelvis. Your labs showed no signs of infection, normal respiratory status, no evidence for sepsis he had mildly low potassium which you can replete by eating a potassium rich diet and taking [id number] supplements, your cardiac workup is negative you have no elevation of inflammatory markers which suggest you do not have any infection in your back with your hardware, thyroid hormone was within normal limits, your pancreas and liver enzymes are within normal limits, you do not have COVID or the flu or RSV. We did provide you with some of your pain medicine, you need to follow-up with your primary care provider for this please do not hesitate to use the emergency for things like chest pain, shortness of breath, neurologic abnormality, high fevers with abdominal pain or other emergent concerns. Referrals: Asya Hand [Primary Care Provider] Discharge Data Discharge Date/Time-TO BE ENTERED AT DEPARTURE: 04/24/25 15:01 HPI General Date/Time Provider Initiated Documentation: 04/24/25 11:23. HPI Narrative: 60 year-old female presents to ED today by EMS with a chief complaint of chronic neck and back pain, and bone pain at her proximal fibula- also reporting weakness and dizziness with onset for days. Patient is lethargic or mildly sedated on arrival, but is able to be roused to vocal stimuli and answer questions but is not overly participatory, states she is out of her pain medicines and took some suboxone this morning. Quality described as a metal plate in her neck is out of place, her back pain is described as it always is, and she states she's having bone pain in her fibular head, no radiation to nausea/vomiting, chest pain, shortness of breath, cough, states she doesn't know if she's had a fever, but has sweat. Severity is described as severe. Palliating factors include suboxone without relief. Provoking factors include nothing specific. Events leading up to the incident/Associated Symptoms: Patient is currently unhoused. Patient not anticoagulated. Related Data Home Medications ?Medication ?Instructions ?Recorded ?Confirmed fluoxetine 40 mg capsule (Prozac) 20 mg PO TID 12/08/15 04/24/25 aspirin 81 mg chewable tablet 81 mg PO DAILY 06/09/21 04/24/25 pregabalin 300 mg capsule 600 mg PO DAILY 06/09/21 04/24/25 albuterol 90 mcg/actuation aerosol 90 mcg inhalation Q3H PRN PRN 09/28/22 04/24/25 inhaler budesonide-formoterol HFA 80 2 puff inhalation BID 09/28/22 04/24/25 mcg-4.5 mcg/actuation aerosol inhaler (Symbicort) losartan 25 mg tablet 25 mg PO DAILY 09/28/22 04/24/25 metoprolol succinate 25 mg 25 mg PO DAILY 09/28/22 04/24/25 tablet,extended release 24 hr naproxen 500 mg tablet 500 mg PO BID PRN 09/28/22 04/24/25 rosuvastatin 10 mg tablet 10 mg PO DAILY 09/28/22 04/24/25 omeprazole 40 mg capsule,delayed 40 mg PO DAILY 04/21/23 04/24/25 release ondansetron HCl 8 mg tablet 8 mg PO Q8H PRN 04/21/23 04/24/25 benzonatate 100 mg capsule 100 mg PO TID PRN cough #30 caps 10/18/24 04/24/25 mirtazapine 7.5 mg tablet 7.5 mg PO QHS 10/18/24 04/24/25 promethazine 6.25 mg/5 mL oral 12.5 mg (10 mL) PO Q6H PRN cough 10/18/24 04/24/25 syrup #120 mL desvenlafaxine succinate 50 mg 50 mg PO Q24H 04/24/25 04/24/25 tablet,extended release 24 hr oxycodone 15 mg tablet 15 mg PO Q6H PRN 04/24/25 04/24/25 Previous Rx's ?Medication ?Instructions ?Recorded benzonatate 100 mg capsule 100 mg PO TID PRN cough #30 caps 10/18/24 promethazine 6.25 mg/5 mL oral 12.5 mg (10 mL) PO Q6H PRN cough 10/18/24 syrup #120 mL Allergies Allergy/AdvReac Type Severity Reaction Status Date / Time Sulfa (Sulfonamide Allergy Intermediate swelling Unverified 10/18/24 07:31 Antibiotics) of neck/itching sumatriptan (From Imitrex) Allergy Unknown bad Unverified 10/18/24 07:31 seiziure ampicillin Allergy facial Verified 10/18/24 07:31 swelling, skin rash General Stated Complaint: GenMedical GAYATRI: 3 Review of Systems All systems reviewed & are unremarkable except as noted in HPI and below Exam Narrative Exam Narrative: GENERAL APPEARANCE: Well-nourished, non-toxic, awake and alert but possibly intoxicated, atraumatic, mild acute distress. SKIN: Warm, pink, dry, intact, without rashes/lesions/ulcerations. HEAD: Normocephalic, atraumatic- no scalp hematoma, no Espinoza's sign, no periorbital ecchymosis, normal hair distribution for gender/age. EYES: Normal conjunctiva, no exudates on lids/lashes, EOMS intact without nystagmus, pupils pinpoint but reactive ENT: Nares patent, no circumoral cyanosis, no facial swelling NECK: Supple, trachea midline, painless cervical ROM, vertebral tenderness without crepitus/step-offs. LUNGS/CHEST: Lungs CTA bilaterally- no rhonchi/rales/wheezes diffusely, non-labored respirations, normal A/P diameter, symmetrical expansion, no chest wall deformity HEART (CV/PV): Regular rate and rhythm without murmur, no peripheral edema, no JVD. ABDOMEN: Soft, non-distended, no guarding, mild lower abdominal tenderness. MSK: Normal ROM, no swelling/deformity to bilateral UEs or LEs, moving all extremities without weakness, no cyanosis, spine midline without tenderness, normal curvature. NEURO: Mental Status AAOx4 - alert to person, place, time, events- answering questions appropriately No facial droop, no forehead involvement. Motor: No focal weakness - strength 5/5 in bilateral UEs and LEs, proximal and distal, symmetric. Sensory: sensation intact to light touch globally. Gait normal: patient ambulated without ataxia around ED. PSYCH: dysthymic, uncooperative, unpleasant, appropriate speech Course Vital Signs Vital signs: Vital Signs Temperature 35.7 C L 04/24/25 11:14 Pulse 73 04/24/25 11:14 Respiratory Rate 18 04/24/25 11:14 Pulse Oximetry 99 04/24/25 11:14 Temperature 35.7 C L 04/24/25 11:19 Temperature Source Oral 04/24/25 11:19 Pulse 73 04/24/25 11:19 Respiratory Rate 18 04/24/25 11:19 Respiratory Effort Normal 04/24/25 11:20 Respiratory Depth Normal 04/24/25 11:20 Respiratory Pattern Normal 04/24/25 11:20 Pulse Oximetry 99 04/24/25 11:19 Oxygen Delivery Method Room Air 04/24/25 11:19 Oxygen Flow Rate 0 07/30/25 11:19 Pain Level 9 04/24/25 11:19 Lab/Test Results Lab/Test Results: Laboratory Tests Range/Units 04/24/25 04/24/25 12:24 14:24 Troponin I Cancelled Cancelled Medical Decision Making This dictation utilizes [id number] dictation software and may contain unedited grammatical errors. 60 year-old female presents to ED today by EMS with a chief complaint of chronic neck and back pain, and bone pain at her proximal fibula- also reporting weakness and dizziness. Patient is lethargic or mildly sedated on arrival, but is able to be roused to vocal stimuli and answer questions but is not overly participatory, states she is out of her pain medicines and took some suboxone this morning. Quality described as a metal plate in her neck is out of place, her back pain is described as it always is, and she states she's having bone pain in her fibular head, no radiation to nausea/vomiting, chest pain, shortness of breath, cough, states she doesn't know if she's had a fever, but has sweat. Severity is described as severe. Palliating factors include suboxone without relief. Provoking factors include nothing specific. Events leading up to the incident/Associated Symptoms: Patient is currently unhoused. Patients' medical history: NSTEMI, NIKKI, COPD, hyperlipidemia, GERD, hypertension, chronic pain syndrome, hepatitis C, history of cerebral hemorrhage, alcoholism, diastolic dysfunction, coronary artery disease, seizures with history of PRES syndrome. Family and social history: lives at [facility], denies ETOH or illicit drug use. Pertinent exam findings / vital signs include tenderness at the fibular head without crepitus or deformity, no ligamentous laxity with varus valgus forces, no unilateral leg swelling, Homans negative, no medial thigh tenderness, diffuse tenderness to the neck and back, diaphoretic, lethargic possibly intoxicated, diffuse mild abdominal pain without focal tenderness or rebound tenderness, nontoxic, afebrile, nontachycardic. Differential / pathologies of concern include trauma, fracture, chronic pain syndrome, not DVT, electrolyte abnormality. Diagnostic studies of: - CBC, CMP, lactate, VBG, CRP/ESR, magnesium, ammonia, troponin, lipase, TSH, alcohol level, COVID/flu/RSV PCR, UA, UDS, blood cultures, EKG, CT head and cervical spine, CT chest/ABD/pelvis with contrast, CT thoracic and lumbar recons, x-ray of the right knee and tib-fib. - CBC shows no acute abnormalities - CRP and ESR are negative do not suspect serious spinal pathology like discitis - VBG's within normal limits - Lactate is negative - CMP shows mild hypokalemia which was repleted here in the ED transition to high potassium diet recommendations - Magnesium within normal limits - Ammonia negative - Alcohol level negative Interventions of: - 15 mg IVP Toradol, 1 L IVF NS, 40 mEq p.o. potassium, 10 mEq IV potassium, 1 g IV magnesium for Co. transport of potassium, normal at home dose of 15 mg oxycodone, to go bottle of oxycodone 4 tabs 5mg. ED Course/Assessment/Plan: 60-year-old female presents via EMS for period of weakness and dizziness, appears sedated possibly due to substance on arrival, is responding appropriately without slurred speech,, significant pain at the fibular head of the right leg without any focal abnormality, patient is on high dose oxycodone daily likely has an element of opioid-induced hyperalgesia, took Suboxone this morning, has no focal neurodeficits and is neuro intact and unpleasant throughout the visit, coming out into the hallway and screaming, demanding pain medication, inflammatory markers are negative do not suspect any element of spinal infection, the patient has a normal VBG, no leukocytosis, lactate negative, magnesium within normal limits, just had mildly low potassium which was repleted recommend high potassium diet. I recommend the patient follow-up with her primary care provider as she is out of some of her chronic pain medications. Findings not consistent with trauma, spinal emergency, cauda equina, infection, witnessed seizure activity, stroke. Disposition of Pain in Right Leg, Chronic Pain Syndrome. Patient verbalized understanding of the plan and return to ED criteria and engaged in shared decision making. Medical Records Medical records reviewed: Yes I reviewed the patient's medical records. Imaging Data Radiologic Study: Attestation: I personally reviewed and interpreted this imaging study as follows: Imaging: CT Scan Radiologist's impression: EXAM: CT HEAD CERVICAL SPINE WO CLINICAL HISTORY: headache, neck pain. TECHNIQUE: Imaging Protocol: Axial computed tomography images with coronal and sagittal reformatted images were created and reviewed COMPARISON: MR MR BRAIN WO CONTRAST from 10/27/[address] HEAD/BRAIN WO CONTRAST from 01/23/2024 FINDINGS: Head CT Ventricles and Extra axial spaces: Normal in size and morphology for the patient's age. Hemorrhage: None. Cerebral parenchyma: No evidence of mass or acute infarct. Old area of encephalomalacia in the posteromedial left parietal lobe. Mild frontal atrophy. Midline shift: None. Brainstem/Cerebellum: Normal. Calvarium: Normal. Visualized Paranasal sinuses/Mastoids: Clear. Soft tissues: Unremarkable. Cervical Spine CT BONES: Vertebral body heights are maintained. Alignment is normal. There is no evidence of acute fracture. Anterior fusion hardware from C5 through C7. Degenerative disc changes and facet degenerative changes are seen . SOFT TISSUES: No paraspinal hematoma. The airway appears intact. No pneumothorax is seen at the lung apices. IMPRESSION: Head CT: No acute abnormality. Old area of encephalomalacia in the left posterior parietal lobe. C-spine CT: Degenerative and postsurgical changes, no acute abnormality. Radiologic Study #2: Attestation: I personally reviewed and interpreted this imaging study as follows: Imaging: CT Scan Radiologist's impression: EXAM: CT CHEST/ABD/PEL W CLINICAL HISTORY: ABD pain, fever. TECHNIQUE: Imaging Protocol: Axial computed tomography images with coronal and sagittal reformatted images were created and reviewed. Computer aided detection (CAD) was utilized. Axial, coronal and sagittal images were reconstructed from the chest abdomen pelvic CT in bone and soft tissue algorithm. CONTRAST MATERIAL: Intravenous: Omnipaque 350 Contrast volume:75 mL Oral: no COMPARISON: CT CT CHEST/ABD/PELVIS W/O CONT from 01/23/[address] THORACIC LUMBAR SPINE REC from 04/24/2025 FINDINGS: CHEST: Pulmonary parenchyma: No consolidation. No dominant measurable mass. Tracheobronchial tree: No bronchiectasis. No mucous plugging.No bronchial wall thickening. Pleura: No effusion or pneumothorax. Mediastinum: Within normal limits. Pulmonary arteries: No visible emboli. Cardiovascular: The heart is mildly enlarged. There are severe coronary artery calcifications. There are mild to moderate atherosclerotic of the aorta. No pericardial effusion. The ascending aorta measures 4.8 cm. Bones: Unremarkable for age. No lytic or blastic lesions. No compression fractures. No visible rib fractures. Soft tissues: Unremarkable. ABDOMEN and PELVIS: There is streak artifact through the liver and spleen secondary to patient arm positioning. Streak artifact at the level of the pelvis related to metallic densities at the level of the hands and wrist. Liver: Normal density. No suspicious mass. Gallbladder and biliary tract: No evidence of stones or wall thickening. No biliary dilatation. Pancreas: Normal density, no abnormal calcifications or inflammatory process. Spleen: Normal. Kidneys: Normal size, contour and axis. No radiodense stones. No obstructive uropathy. No suspicious masses seen. Adrenal glands: No masses seen. Aorta: Abdominal portion non-dilated. Atherosclerotic changes. Lymph nodes: Within normal limits. Soft tissues: Unremarkable. Bladder: Unremarkable. Bowel: No obstruction or bowel wall thickening. Sigmoid diverticulosis. No evidence of diverticulitis. Peritoneal cavity: No ascites. No focal collection. No mesenteric inflammatory response. No free air. Bones: No evidence of spine or pelvic fracture. Degenerative changes and scoliosis. Reproductive organs: Hysterectomy. IMPRESSION: No acute abnormality in the chest, abdomen or pelvis. Radiologic Study #4: Attestation: I personally reviewed and interpreted this imaging study as follows: Imaging: X-Ray Radiologist's impression: EXAM: XR TIB/FIB RT CLINICAL HISTORY: R koenig pain. TECHNIQUE: 2D digital imaging was performed. Five views. COMPARISON: CR XR KNEE RT 3V AP,LAT,LAITH from 04/24/2025 FINDINGS: BONES: No acute fracture is present. No bony destructive lesion is seen. The knee and ankle joints are unremarkable. SOFT TISSUE: Chronic appearing calcification adjacent to the mid fibula which could be within the interosseous membrane IMPRESSION: No acute abnormality in the knee or leg. Lab Data Lab results reviewed: Yes I reviewed the patient's lab results. Labs: 04/24/25 12:37 Blood Blood Culture - Pending 04/24/25 12:20 Blood Blood Culture - Pending Laboratory Tests Range/Units 04/24/25 04/24/25 04/24/25 11:30 12:20 12:24 WBC (4.4-10.8) 10^3/uL 9.94 RBC (3.93-5.22) 10^6/uL 4.59 Hgb (11.2-15.7) g/dL 14.3 Hct (36.0-46.0) % 42.1 MCV (80-95) fL 92 MCH (27.0-33.0) pg 31.2 MCHC (32.0-36.0) % 34.0 RDW (11.7-14.6) % 12.5 Plt Count (130-400) 10^3/uL 304 MPV (8.0-11.0) fL 10.1 Immature Gran % See Differential Neutrophils % % 51.0 Lymphocytes % % 31.0 Atypical Lymphs % % 2 Monocytes % % 10.0 Eosinophils % % 3.0 Basophils % % 3.0 Nucleated RBC % (0.0-0.3) % 0.0 Absolute Neutrophils (1.2-6.7) 10^3/uL 5.07 Absolute Lymphocytes (1.2-3.4) 10^3/uL 3.28 Absolute Monocytes (0.1-0.8) 10^3/uL 0.99 H Absolute Eosinophils (0.0-0.7) 10^3/uL 0.30 Absolute Basophils (0.0-0.2) 10^3/uL 0.30 H RBC Morphology Normal ESR (0-30) mm/hr 21 VBG pH (7.31-7.41) 7.40 VBG pCO2 (41-51) mmHg 41 VBG pO2 mmHg 29 VBG HCO3 (23-28) mmol/L 26 VBG Total CO2 (24-29) mmol/L 22 L VBG O2 Saturation % 56 VBG Base Excess (-2-3) mmol/L 1 VBG Lactate (<or=2.0) mmol/L 1.6 Sodium (136-145) mmol/L 139 Potassium (3.5-5.1) mmol/L 3.1 L Chloride (98-107) mmol/L 102 Carbon Dioxide (21.0-32.0) mmol/L 27.0 Anion Gap (3-11) mmol/L 10.0 BUN (7-18) mg/dL < 1 L Creatinine (0.55-1.02) mg/dL 1.0 Est GFR (CKD-EPI 2020) (mL/min/1.73m2) 63.70 Glucose (74-106) mg/dL 91 Calcium (8.5-10.1) mg/dL 9.4 Magnesium (1.8-2.4) mg/dL 2.0 Total Bilirubin (0.2-1.0) mg/dL 0.6 AST (15-37) U/L 30 ALT (14-59) U/L 26 Alkaline Phosphatase (46-116) U/L 108 Ammonia (11-32) umol/L < 10 L Troponin I (<or=51) ng/L 4 Cancelled C-Reactive Protein (<or=0.5) mg/dL < 0.50 Total Protein (6.4-8.2) g/dL 7.6 Albumin (3.4-5.0) g/dL 3.7 Lipase (<78) U/L 40 TSH (0.36-3.74) uIU/mL 2.52 Ethyl Alcohol (<10) mg/dL < 3.0 COVID-19 Source Nasopharynx SARS-CoV-2 (PCR) (Negative) Negative Influenza Type A (PCR) (Negative) Negative Influenza Type B (PCR) (Negative) Negative RSV (PCR) (Negative) Negative Range/Units 04/24/25 14:24 WBC (4.4-10.8) 10^3/uL RBC (3.93-5.22) 10^6/uL Hgb (11.2-15.7) g/dL Hct (36.0-46.0) % MCV (80-95) fL MCH (27.0-33.0) pg MCHC (32.0-36.0) % RDW (11.7-14.6) % Plt Count (130-400) 10^3/uL MPV (8.0-11.0) fL Immature Gran % Neutrophils % % Lymphocytes % % Atypical Lymphs % % Monocytes % % Eosinophils % % Basophils % % Nucleated RBC % (0.0-0.3) % Absolute Neutrophils (1.2-6.7) 10^3/uL Absolute Lymphocytes (1.2-3.4) 10^3/uL Absolute Monocytes (0.1-0.8) 10^3/uL Absolute Eosinophils (0.0-0.7) 10^3/uL Absolute Basophils (0.0-0.2) 10^3/uL RBC Morphology ESR (0-30) mm/hr VBG pH (7.31-7.41) VBG pCO2 (41-51) mmHg VBG pO2 mmHg VBG HCO3 (23-28) mmol/L VBG Total CO2 (24-29) mmol/L VBG O2 Saturation % VBG Base Excess (-2-3) mmol/L VBG Lactate (<or=2.0) mmol/L Sodium (136-145) mmol/L Potassium (3.5-5.1) mmol/L Chloride (98-107) mmol/L Carbon Dioxide (21.0-32.0) mmol/L Anion Gap (3-11) mmol/L BUN (7-18) mg/dL Creatinine (0.55-1.02) mg/dL Est GFR (CKD-EPI 2020) (mL/min/1.73m2) Glucose (74-106) mg/dL Calcium (8.5-10.1) mg/dL Magnesium (1.8-2.4) mg/dL Total Bilirubin (0.2-1.0) mg/dL AST (15-37) U/L ALT (14-59) U/L Alkaline Phosphatase (46-116) U/L Ammonia (11-32) umol/L Troponin I (<or=51) ng/L Cancelled C-Reactive Protein (<or=0.5) mg/dL Total Protein (6.4-8.2) g/dL Albumin (3.4-5.0) g/dL Lipase (<78) U/L TSH (0.36-3.74) uIU/mL Ethyl Alcohol (<10) mg/dL COVID-19 Source SARS-CoV-2 (PCR) (Negative) Influenza Type A (PCR) (Negative) Influenza Type B (PCR) (Negative) RSV (PCR) (Negative) Quality:SDOH Health Related Social Needs: Health related social needs inadequate housing risk of homeless material hardship house/econ circumstance PFSH All Active Problems (Updated 04/24/25 @ 14:39 by DEEPA Dwyer) Pain in right leg (Acute) Chronic pain syndrome (Chronic) Ulcer of right foot with fat layer exposed (Acute) Skin lesion of left arm (Acute) History of colon polyps (Acute ~07/2023) hyperplastic Chronic nausea (Acute) Pulmonary hypertension (Acute) Diastolic dysfunction (Acute) Dilated aortic root (Acute) Atherosclerosis of aorta (Acute) Coronary artery calcification seen on CAT scan (Acute) CAD (coronary artery disease) (Chronic) Diverticulitis (Chronic) Atherosclerotic heart disease of [place] coronary artery without angina pectoris (Acute) Seizures (Acute) PRES (posterior reversible encephalopathy syndrome) (Acute) Abdominal pain (Acute) Medical History NSTEMI (non-ST elevated myocardial infarction) x2 2017 NIKKI (obstructive sleep apnea) On HS O2 3L COPD (chronic obstructive pulmonary disease) Vitamin D deficiency Tobacco abuse Postmenopausal osteoporosis Polyp of gallbladder Anxiety and depression Hyperlipidemia Heart disease GERD (gastroesophageal reflux disease) Essential hypertension Cyst, dermoid, face Constipation Chronic pain Hepatitis C Cerebral hemorrhage 2012 Cataract Arthritis Alcoholism remote Surgical History History of esophagogastroduodenoscopy (~07/2023) History of colonoscopy (~07/2023) S/P cholecystectomy S/P ankle arthrodesis S/P shoulder surgery S/P hysterectomy S/P lumbar fusion S/P cervical spinal fusion S/P appendectomy H/O heart artery stent 2016 Family History Father Colon polyps Hypertension Heart disease Alcohol use disorder Mother Stroke Alcohol use disorder Son Alcohol use disorder Social History Smoking/Tobacco Use Status: Current every day Tobacco Type: cigarettes Smoking risk assessment performed?: Yes Alcohol Intake: current Alcohol Intake frequency: 0-2 drinks per day Alcohol type: beer Drug use: Daily Substance use type: marijuana Household members: family Housing: apartment Number of Children: 2 current occupation: Disabled Do you feel safe at home: Yes Do you feel safe in your relationship?: Yes Additional Social history: lives with son and grandkids
[2025-04-24] MEDS: Normal Saline 1,000 ML 1000 ML IV (11:52)
[2025-04-24] MEDS: Ketorolac 15 MG/ML VIAL IVP (11:52)
[2025-04-24 11:58] LABS: ESR 21 mm/hr (0-30)
[2025-04-24 12:03] LABS: ALT 26 U/L (14-59); AST 30 U/L (15-37); Albumin 3.7 g/dL (3.4-5.0); Alkaline Phosphatase 108 U/L (46-116); Anion Gap 10.0 mmol/L (3-11); Bilirubin, Total 0.6 mg/dL (0.2-1.0); CO2 27.0 mmol/L (21.0-32.0); Calcium 9.4 mg/dL (8.5-10.1); Chloride 102 mmol/L (98-107); Estimated GFR 63.70 (mL/min/1.73m2); Glucose 91 mg/dL (74-106); Magnesium 2.0 mg/dL (1.8-2.4); Potassium 3.1 mmol/L (3.5-5.1); Sodium 139 mmol/L (136-145); TSH 2.52 uIU/mL (0.36-3.74); Total Protein 7.6 g/dL (6.4-8.2); Troponin I 4 ng/L (<or=51)
[2025-04-24 12:04] LABS: BUN < 1 mg/dL (7-18)
[2025-04-24 12:08] LABS: Lipase 40 U/L (<78)
[2025-04-24 12:21] LABS: C-Reactive Protein < 0.50 mg/dL (<or=0.5)
[2025-04-24 12:30] LABS: BE (Venous) 1 mmol/L (-2-3); HCO3 (Venous) 26 mmol/L (23-28); O2 Sat (Venous) 56 %; TCO2 (Venous) 22 mmol/L (24-29); pCO2 (Venous) 41 mmHg (41-51); pO2 (Venous) 29 mmHg
[2025-04-24] MEDS: Omnipaque 350 MG/ML 100 ML BTL IJ (12:46)
[2025-04-24 12:47] LABS: RBC Morphology Normal
[2025-04-24] MEDS: Normal Saline - Diluent 50 ML VIAL IJ (12:48)
[2025-04-24 12:58] LABS: Ammonia < 10 umol/L (11-32)
[2025-04-24 13:06] LABS: COVID-19 PCR Negative (Negative); RSV PCR Negative (Negative)
--- NOTE | 2025-04-24 13:13 | DI.CT_ITS ---
Exam(s) CT CHEST/ABD/PEL W CT THORACIC LUMBAR SPINE REC EXAM: CT CHEST/ABD/PEL W CLINICAL HISTORY: ABD pain, fever. TECHNIQUE: Imaging Protocol: Axial computed tomography images with coronal and sagittal reformatted images were created and reviewed. Computer aided detection (CAD) was utilized. Axial, coronal and sagittal images were reconstructed from the chest abdomen pelvic CT in bone and soft tissue algorithm. CONTRAST MATERIAL: Intravenous: Omnipaque 350 Contrast volume:75 mL Oral: no COMPARISON: CT CT CHEST/ABD/PELVIS W/O CONT from 01/23/[address] THORACIC LUMBAR SPINE REC from 04/24/2025 FINDINGS: CHEST: Pulmonary parenchyma: No consolidation. No dominant measurable mass. Tracheobronchial tree: No bronchiectasis. No mucous plugging.No bronchial wall thickening. Pleura: No effusion or pneumothorax. Mediastinum: Within normal limits. Pulmonary arteries: No visible emboli. Cardiovascular: The heart is mildly enlarged. There are severe coronary artery calcifications. There are mild to moderate atherosclerotic of the aorta. No pericardial effusion. The ascending aorta measures 4.8 cm. Bones: Unremarkable for age. No lytic or blastic lesions. No compression fractures. No visible rib fractures. Soft tissues: Unremarkable. ABDOMEN and PELVIS: There is streak artifact through the liver and spleen secondary to patient arm positioning. Streak artifact at the level of the pelvis related to metallic densities at the level of the hands and wrist. Liver: Normal density. No suspicious mass. Gallbladder and biliary tract: No evidence of stones or wall thickening. No biliary dilatation. Pancreas: Normal density, no abnormal calcifications or inflammatory process. Spleen: Normal. Kidneys: Normal size, contour and axis. No radiodense stones. No obstructive uropathy. No suspicious masses seen. Adrenal glands: No masses seen. Aorta: Abdominal portion non-dilated. Atherosclerotic changes. Lymph nodes: Within normal limits. Soft tissues: Unremarkable. Bladder: Unremarkable. Bowel: No obstruction or bowel wall thickening. Sigmoid diverticulosis. No evidence of diverticulitis. Peritoneal cavity: No ascites. No focal collection. No mesenteric inflammatory response. No free air. Bones: No evidence of spine or pelvic fracture. Degenerative changes and scoliosis. Reproductive organs: Hysterectomy. IMPRESSION: No acute abnormality in the chest, abdomen or pelvis. RADIATION DOSE DELIVERED: 711.52mGy.cm Total DLP DATA REPOSITORY: All CT scans at this facility are submitted to the National Radiology Data Registry (NRDR) Dose Index Registry (DIR) with the [employer] ([employer]). RADIATION OPTIMIZATION: All CT scans at this facility use at least one of these dose optimization techniques: automated exposure control; mA and/or kV adjustment per patient size (includes targeted exams where dose is matched to clinical indication); or iterative reconstruction.
[2025-04-24] MEDS: POTASSIUM CHLORIDE 10 MEQ/100 ML BAG 100 MEQ IV_INF (13:43)
[2025-04-24] MEDS: MAGNESIUM SULFATE 1 GM/100 ML BAG IV_INF (13:43)
[2025-04-24] MEDS: Potassium Chloride 10 MEQ CAPCR 40 MEQ PO (13:59)
[2025-04-24] MEDS: oxyCODONE 15 MG TAB PO (13:59)
[2025-04-24 14:03] LABS: Cannabinoids THC Positive (Negative); METHADONE URINE SCREEN Negative (Negative)
[2025-04-24 14:10] LABS: Glucose 500 mg/dL (Negative)
[2025-04-25 10:14] LABS: Lyme Ab w Rflx to Lyme Confirm Negative (Negative)
[2025-04-26 19:51] LABS: B. miyamotoi PCR Negative (Negative); Babesia divergens/MO-1 Negative (Negative); Ehrlichia muris eauclairensis Negative (Negative)
== END 2025-04-24 15:01 | disposition home or self-care (01) ==
PROVIDERS: Emergency Medicine Emergency Medical Services; Emergency Provider Physician Assistant; PCP Internal Medicine
DX: G89.4 Chronic pain syndrome (principal); R26.2 Difficulty in walking, not elsewhere classified; I25.10 Atherosclerotic heart disease of native coronary artery without angina pectoris; I25.2 Old myocardial infarction; J44.9 Chronic obstructive pulmonary disease, unspecified; E78.5 Hyperlipidemia, unspecified; I10 Essential (primary) hypertension; F17.210 Nicotine dependence, cigarettes, uncomplicated; Z95.5 Presence of coronary angioplasty implant and graft; Z98.1 Arthrodesis status; Z79.82 Long term (current) use of aspirin
CPT/HCPCS: 73562; 74177; 80053; 80307; 82805; 83690; 85652; 87040; 87637; 87798; 93005; 96374; 96375; 99285; 70450; 71260; 72125; 73590; 80320; 81003; 82140; 83605; 83735; 84443; 84484; 85025; 86140; 86618; 93010; J1885; J3475; J3480; J3490

== ENCOUNTER 2025-05-15 15:16 | Outpatient (RCR) | payer MEDICARE, MEDICAID, SELFPAY | END 2025-05-26 23:59 | disposition home or self-care (01) | LOC: CR 15:16 | PROVIDERS: PCP Internal Medicine; Visit Provider Internal Medicine Cardiovascular Disease ==